=== PATIENT | female | born 1960 | race Caucasian/White ===

== ENCOUNTER 2016-09-16 09:58 | Emergency (ER) | payer SELFPAY ==
[~2016-09-16] VITALS: Ht 175.3 cm; Wt 74.8 kg
[~2016-09-16 09:58] MED LIST: Clindamycin Hcl PO; INSU100I17 SQ; INSU100I27 SQ; SULF1TAB24 PO
[2016-09-16 10:03] VITALS: BP 155/90
--- NOTE | 2016-09-16 10:44 | PHYS DOC ---
Past Medical History Past Medical History: Anxiety, Depression, Diabetes-Type II, MRSA Additional Past Medical Histor: MRSA Past Surgical History: Other Additional Past Surgical Histo: R LEG I&D,L FOOT SURG Alcohol Use: None Drug Use: None Adult General Chief Complaint Chief Complaint: SHOULDER INJURY HPI HPI Patient is a 56 year old female presents to the emergency department via private vehicle stating that she fell at [place] just today she states that she had about 2 gallons of milk and they placed the same bed when she was walking out of a store back broke in the bag broke causing the container to fall and break open. Patient states that she slipped and fell on the right side of her body. She is complaining of right shoulder right hip and right knee pain and discomfort. Patient states that this occurred yesterday. She has not taken anything for pain and discomfort. She does have abrasions noted on her right knee area. Patient does have full range of motion of the extremities no bruising or discoloration noted, peripheral pulses 2+ cap refill brisk less than 2 seconds.Patient states she has a history of neuropathy from diabetes. Review of Systems Review of Systems Constitutional: Denies fever or chills [] Eyes: Denies change in visual acuity, redness, or eye pain [] HENT: Denies nasal congestion or sore throat [] Respiratory: Denies cough or shortness of breath [] Cardiovascular: No additional information not addressed in HPI [] GI: Denies abdominal pain, nausea, vomiting, bloody stools or diarrhea [] : Denies dysuria or hematuria [] Musculoskeletal: Denies back pain. C/o right shoulder, right hip and right knee pain Integument: Denies rash or skin lesions. Abrasion right knee Neurologic: Denies headache, focal weakness or sensory changes [] Endocrine: Denies polyuria or polydipsia [] Current Medications Current Medications Current Medications Medications (Trade) Dose Ordered Sig/[place] Start Time Stop Time Status Last Admin Dose Admin Diphtheria/ Tetanus/Acell Pertussis (Boostrix) 0.5 ml ONCE ONCE 09/16/16 11:00 09/16/16 11:01 DC Allergies Allergies Allergies Coded Allergies Type Severity Reaction Last Updated Verified raspberry Allergy Severe CHOKING SENSATION IN THROAT 10/25/15 Yes amoxicillin Allergy Unknown 11/23/14 Yes aspirin Allergy Unknown 7/31/15 Yes codeine Allergy Unknown 11/23/14 Yes ibuprofen Allergy Unknown 11/23/14 Yes morphine Allergy Unknown 11/23/14 Yes Physical Exam Physical Exam Constitutional: Well developed, well nourished, no acute distress, non-toxic appearance. [] HENT: Normocephalic, atraumatic, bilateral external ears normal, oropharynx moist, no oral exudates, nose normal. [] Eyes: PERRLA, EOMI, conjunctiva normal, no discharge. [] Neck: Normal range of motion, no tenderness, supple, no stridor. [] Cardiovascular:Heart rate regular rhythm, no murmur [] Lungs & Thorax: Bilateral breath sounds clear to auscultation [] Skin: Warm, dry, no erythema, no rash. [] Back: No tenderness Extremities: Right shoulder tenderness, Right hip tenderness and right knee tenderness over the knee cap, peripheral pulses 2+ cap refill brisk < 2 seconds , no cyanosis, no clubbing, ROM intact, no edema. [] Neurologic: Alert and oriented X 3, normal motor function, normal sensory function, no focal deficits noted. [] Psychologic: Affect normal, judgement normal, mood normal. [] Current Patient Data Vital Signs Vital Signs Date Time Temp Pulse Resp B/P (MAP) Pulse Ox O2 Delivery O2 Flow Rate FiO2 09/16/16 10:03 97.9 91 16 98 Room Air 97.9 EKG EKG [] Radiology/Procedures Radiology/Procedures [][facility] [address] [place], [place] [id number] IMAGING REPORT Signed PATIENT: TAYLOR SARAVIA ACCOUNT: [id number] : 1960 LOCATION: ER AGE: 56 SEX: F EXAM [id number] STATUS: REG ER ORD. PHYSICIAN: REENA ZEPEDA APRN REASON: slipped and fell on the right side of body PROCEDURE: KNEE RIGHT 3V; SHOULDER 2+V RIGHT Right shoulder, 3 views, 09/16/2016: History: Slip, fall, injury No fracture or dislocation is identified. There is mild degenerative change at the AC joint. IMPRESSION: No acute right shoulder abnormality is detected. Right knee, 3 views, 09/16/2016: History: Fall, injury No fracture or dislocation is identified. There is mild degenerative change. There is spurring along the tibial tuberosity. No significant joint effusion is seen. IMPRESSION: No acute bony abnormality is detected. DICTATED and SIGNED BY: KENDALL FERREIRA MD DATE: 09/16/16 105 CC: REENA ZEPEDA APRN; NO PCP ~ [facility] [address] [place] [address] IMAGING REPORT Signed PATIENT: TAYLOR SARAVIA ACCOUNT: [id number] : 1960 LOCATION: ER AGE: 56 SEX: F EXAM STATUS: REG ER ORD. PHYSICIAN: REENA ZEPEDA APRN REASON: slipped and fell on the right side of body PROCEDURE: HIP RIGHT 2V WITH PELVIS Pelvis with right hip, 3 views, 09/16/2016: History: Fall, pain No fracture or dislocation is identified. The hip joint spaces are well-maintained with only mild marginal spurring. IMPRESSION: No acute bony abnormality is detected. DICTATED and SIGNED BY: KENDALL FERREIRA MD DATE: 09/16/16 105 CC: REENA ZEPEDA APRN; NO PCP ~ Course & Med Decision Making Course & Med Decision Making Pertinent Labs and Imaging studies reviewed. (See chart for details) She was of the right shoulder, right hip and right knee are negative for any bony abnormalities per radiology. Patient will be recommended to use ice packs on 20 minutes off 20 minutes several times a day. Also recommended that she use Tylenol for pain and discomfort. She'll be provided with Flexeril to help with muscle spasms in the back. She was instructed that this medication will cause drowsiness do not take any be alert and oriented. Patient will be encouraged to use elevation as much as possible. The abrasions that she has she'll be encouraged to use soap and water cleaning the areas and apply antibiotic ointment. Patient will be discharged home in stable condition signs symptoms to return back to emergency department been provided. [] Dragon Disclaimer Dragon Disclaimer This electronic medical record was generated, in whole or in part, using a voice recognition dictation system. Departure Departure Impression: Primary Impression: Fall Additional Impressions: Right shoulder injury Right hip pain Right knee pain Disposition: 01 HOME, SELF-CARE Condition: STABLE Referrals: NO PCP (PCP) Patient Instructions: Fall Prevention and Home Safety, Hip Pain, Knee Pain, [id number], Shoulder Pain, [id number] Additional Instructions: Activity as tolerated. Medications as prescribed. Tylenol for pain and discomfort. Flexeril for pain and discomfort this medication will cause drowsiness do not take any be alert and oriented. Ice packs on 20 minutes off 20 minutes several times a day. Elevation as much as possible. Keep the abrasions been any clean and dry. You may apply antibiotic ointment to the areas twice a day as well. Signs and symptoms of infection: Redness, warmth, tenderness or any yellow/ greenish drainage of a come from the site physician occur follow-up through primary care physician immediately. Follow-up with primary care physician in the next 7-10 days if he continued have pain and discomfort. Return to emergency department sign symptoms of become worse. Scripts Cyclobenzaprine Hcl (CYCLOBENZAPRINE HCL) 5 Mg Tablet 1 TAB PO BID Y for MUSCLE SPASMS, #15 TAB Prov: REENA ZEPEDA APRN 09/16/16 Problem Qualifiers REENA ZEPEDA APRN September 16, 2016 10:44
[2016-09-16] MEDS ORDERED: DIPHTH,PERTUSS(ACELL),TET TOX 0.5 ML DISP.SYRIN. VAX IM ONE (11:00)
--- NOTE | 2016-09-16 11:00 | RAD ---
Right shoulder, 3 views, 09/16/2016: History: Slip, fall, injury No fracture or dislocation is identified. There is mild degenerative change at the AC joint. IMPRESSION: No acute right shoulder abnormality is detected. Right knee, 3 views, 09/16/2016: History: Fall, injury No fracture or dislocation is identified. There is mild degenerative change. There is spurring along the tibial tuberosity. No significant joint effusion is seen. IMPRESSION: No acute bony abnormality is detected.
--- NOTE | 2016-09-16 11:01 | RAD ---
Pelvis with right hip, 3 views, 09/16/2016: History: Fall, pain No fracture or dislocation is identified. The hip joint spaces are well-maintained with only mild marginal spurring. IMPRESSION: No acute bony abnormality is detected.
[2016-09-16] MEDS ORDERED: CYCL5TAB PO (11:24)
== END 2016-09-16 11:43 | disposition home or self-care (01) ==
LOC: ER 09:58
DX: S49.91XA Unspecified injury of right shoulder and upper arm, initial encounter (principal); M25.551 Pain in right hip; M25.561 Pain in right knee; E11.40 Type 2 diabetes mellitus with diabetic neuropathy, unspecified; F41.9 Anxiety disorder, unspecified; Z88.0 Allergy status to penicillin; Z88.5 Allergy status to narcotic agent; Z88.6 Allergy status to analgesic agent; Z88.8 Allergy status to other drugs, medicaments and biological substances; W01.0XXA Fall on same level from slipping, tripping and stumbling without subsequent striking against object, initial encounter; Y93.89 Activity, other specified; Y92.89 Other specified places as the place of occurrence of the external cause; Y99.8 Other external cause status
CPT/HCPCS: 73030; 73502; 73562; 90471; 90715; 99284-25

== ENCOUNTER 2017-05-21 03:02 | Emergency (ER) | payer SELFPAY ==
[2017-05-21] MEDS ORDERED: HYDROcodone/APAP 5/325MG 1 TAB TABLET (04:31)
[2017-05-21] MEDS: HYDROcodone/APAP 10/325 1 TAB TABLET PO (04:34)
== END 2017-05-21 04:40 | disposition home or self-care (01) ==
LOC: ER 03:02
DX: M54.5 Low back pain (principal); M53.3 Sacrococcygeal disorders, not elsewhere classified; F41.9 Anxiety disorder, unspecified; F32.9 Major depressive disorder, single episode, unspecified; E78.00 Pure hypercholesterolemia, unspecified; E11.9 Type 2 diabetes mellitus without complications; Z88.6 Allergy status to analgesic agent; Z88.1 Allergy status to other antibiotic agents; Z88.5 Allergy status to narcotic agent; Z91.018 Allergy to other foods; W00.0XXA Fall on same level due to ice and snow, initial encounter; Y93.89 Activity, other specified; Y92.89 Other specified places as the place of occurrence of the external cause; Y99.8 Other external cause status
CPT/HCPCS: 72220; 99284

== ENCOUNTER 2017-10-13 15:24 | Emergency (ER) | payer SELFPAY ==
[2017-10-13 16:14] LABS: BILIRUBIN,URINE NEGATIVE (NEG); CLARITY,URINE CLOUDY; COLOR,URINE YELLOW; GLUCOSE,URINE >=1000 mg/dL (NEG); NITRITE,URINE POSITIVE (NEG); PH,URINE 5.5; PROTEIN,URINE NEGATIVE (NEG-TRACE); UROBILINOGEN,URINE 0.2 mg/dL (0.2 mg/dL)
[2017-10-13 16:33] LABS: BACTERIA,URINE MANY /HPF (0-FEW); SQUAMOUS EPITHELIAL CELL,UR FEW /LPF; WBC,URINE >40 /HPF (0-4)
[2017-10-13 16:37] LABS: ADD MAN DIFF? NO
[2017-10-13 16:40] LABS: BASO % 0 % (0-3); EOS # 0.3 x10^3/uL (0.0-0.7); EOS % 3 % (0-3); HEMATOCRIT 39.1 % (36.0-47.0); HEMOGLOBIN 13.2 g/dL (12.0-15.5); LYMPH % 26 % (24-48); MEAN CORPUSCULAR HEMOGLOBIN 28 pg (25-35); MEAN CORPUSCULAR HGB CONC 34 g/dL (31-37); MEAN CORPUSCULAR VOLUME 83 fL (79-100); MONO # 0.4 x10^3/uL (0.0-1.1); MONO % 6 % (0-9); NEUT # 5.1 x10^3uL (1.8-7.7); NEUT % 65 % (31-73); PLATELET COUNT 250 x10^3/uL (140-400); RED BLOOD COUNT 4.72 x10^6/uL (3.50-5.40); RED CELL DISTRIBUTION WIDTH 12.8 % (11.5-14.5); WHITE BLOOD COUNT 7.8 x10^3/uL (4.0-11.0)
[2017-10-13 16:46] LABS: BLOOD UREA NITROGEN 27 mg/dL (7-20); BUN/CREATININE RATIO 30 (6-20); CALCIUM 9.4 mg/dL (8.5-10.1); CREATININE 0.9 mg/dL (0.6-1.0); GLUCOSE 477 mg/dL (70-99); SODIUM 132 mmol/L (136-145)
[2017-10-13 16:47] LABS: ANION GAP 5 (6-14); CARBON DIOXIDE 31 mmol/L (21-32); CHLORIDE 96 mmol/L (98-107); POTASSIUM 4.6 mmol/L (3.5-5.1)
[2017-10-13 16:52] LABS: ALBUMIN 3.3 g/dL (3.4-5.0); ALBUMIN/GLOBULIN RATIO 0.8 (1.0-1.7); ALK PHOS 133 U/L (46-116); ALT (SGPT) 32 U/L (14-59); AST (SGOT) 19 U/L (15-37); TOTAL BILIRUBIN 0.3 mg/dL (0.2-1.0); TOTAL PROTEIN 7.2 g/dL (6.4-8.2)
[2017-10-13] MEDS: IV NORMAL SALINE 1000ML BAG 1,000 ML IV ×2 (16:56→17:52)
[2017-10-13] MEDS: ONDANSETRON PF 4 MG/2 ML VIAL. IV (16:56)
[2017-10-13] MEDS: MECLIZINE HCL 12.5 MG TABLET. PO (16:58)
[2017-10-13] MEDS: KETOROLAC 30 MG/ML INJ. IV (16:59)
[2017-10-13] MEDS: INSULIN REGULAR 100 UNIT/ML 3ML VIAL. IV (17:52)
[2017-10-13 20:50] LABS: POC GLUCOSE 232 mg/dL (70-99)
== END 2017-10-13 20:00 | disposition home or self-care (01) ==
LOC: ER 15:24
DX: E11.65 Type 2 diabetes mellitus with hyperglycemia (principal); E86.0 Dehydration; N39.0 Urinary tract infection, site not specified; E78.00 Pure hypercholesterolemia, unspecified; Z86.14 Personal history of Methicillin resistant Staphylococcus aureus infection; Z88.1 Allergy status to other antibiotic agents; Z88.5 Allergy status to narcotic agent; Z88.6 Allergy status to analgesic agent; Z91.018 Allergy to other foods
CPT/HCPCS: 36415; 80053; 81001; 82962; 85025; 96361; 96374; 96375; 99285-25; J1815; J2405; J7030; J8597

== ENCOUNTER 2017-11-04 08:58 | Inpatient (IN) | payer SELFPAY ==
[2017-11-04 09:17] LABS: POC GLUCOSE 89 mg/dL (70-99)
[2017-11-04 09:27] LABS: ADD MAN DIFF? NO
[2017-11-04 09:36] LABS: BASO % 1 % (0-3); EOS # 0.2 x10^3/uL (0.0-0.7); EOS % 4 % (0-3); HEMATOCRIT 38.8 % (36.0-47.0); LYMPH # 2.8 x10^3/uL (1.0-4.8); LYMPH % 45 % (24-48); MEAN CORPUSCULAR HEMOGLOBIN 28 pg (25-35); MEAN CORPUSCULAR HGB CONC 33 g/dL (31-37); MEAN CORPUSCULAR VOLUME 83 fL (79-100); MONO # 0.5 x10^3/uL (0.0-1.1); MONO % 8 % (0-9); NEUT # 2.6 x10^3uL (1.8-7.7); NEUT % 42 % (31-73); PLATELET COUNT 261 x10^3/uL (140-400); RED BLOOD COUNT 4.68 x10^6/uL (3.50-5.40); RED CELL DISTRIBUTION WIDTH 13.2 % (11.5-14.5); WHITE BLOOD COUNT 6.2 x10^3/uL (4.0-11.0)
[2017-11-04 09:42] LABS: ANION GAP 6 (6-14); BLOOD UREA NITROGEN 36 mg/dL (7-20); BUN/CREATININE RATIO 40 (6-20); CALCIUM 9.5 mg/dL (8.5-10.1); CARBON DIOXIDE 32 mmol/L (21-32); CHLORIDE 103 mmol/L (98-107); CREATININE 0.9 mg/dL (0.6-1.0); GLUCOSE 84 mg/dL (70-99); POTASSIUM 3.6 mmol/L (3.5-5.1); SODIUM 141 mmol/L (136-145)
[2017-11-04 09:48] LABS: ALBUMIN 3.4 g/dL (3.4-5.0); ALBUMIN/GLOBULIN RATIO 0.9 (1.0-1.7); ALK PHOS 98 U/L (46-116); ALT (SGPT) 23 U/L (14-59); AST (SGOT) 17 U/L (15-37); MAGNESIUM 1.7 mg/dL (1.8-2.4); TOTAL BILIRUBIN 0.2 mg/dL (0.2-1.0); TOTAL PROTEIN 7.3 g/dL (6.4-8.2)
[2017-11-04 09:50] LABS: BILIRUBIN,URINE NEGATIVE (NEG); CLARITY,URINE CLEAR; COLOR,URINE YELLOW; GLUCOSE,URINE >=1000 mg/dL (NEG); NITRITE,URINE NEGATIVE (NEG); PH,URINE 5.5; PROTEIN,URINE NEGATIVE (NEG-TRACE); UROBILINOGEN,URINE 0.2 mg/dL (0.2 mg/dL)
[2017-11-04 09:55] LABS: THYROID STIM HORMONE (TSH) 0.374 uIU/mL (0.358-3.74)
[2017-11-04 09:59] LABS: TROPONINI < 0.017 ng/mL (0.000-0.055)
[2017-11-04 10:03] LABS: BACTERIA,URINE 0 /HPF (0-FEW); HYALINE CASTS, URINE MODERATE /HPF; RBC,URINE 0 /HPF (0-2); SQUAMOUS EPITHELIAL CELL,UR MANY /LPF; WBC,URINE 0 /HPF (0-4)
[2017-11-04] MEDS: IV NORMAL SALINE 1000ML BAG 1,000 ML IV (10:35)
[2017-11-04] MEDS: MECLIZINE HCL 12.5 MG TABLET. PO (10:37)
[2017-11-04] MEDS ORDERED: ACETAMINOPHEN 500 MG TABLET PO (13:45)
[2017-11-04] MEDS ORDERED: CLINDAMYCIN HCL 600 MG PO (14:00)
[2017-11-04] MEDS ORDERED: DEXTROSE 50% 25 GM / 50ML DISP.SYRIN. IV (14:30)
[2017-11-04] MEDS ORDERED: ACETAMINOPHEN 325 MG TABLET. PO (15:00)
[2017-11-04] MEDS: ACETAMINOPHEN 325 MG TABLET. PO (16:18)
[2017-11-04 16:56] LABS: POC GLUCOSE 281 mg/dL (70-99)
[2017-11-04] MEDS: INSULIN LISPRO 300 UNITS/3 ML INSULN.PEN. SQ (17:00)
[2017-11-04] MEDS: ATORVASTATIN CALCIUM 10 MG TABLET. PO (20:44)
[2017-11-04] MEDS: AMITRIPTYLINE HCL 50 MG TABLET PO (20:44)
[2017-11-04] MEDS: KETOROLAC 30 MG/ML INJ. IV (20:44)
[2017-11-04] MEDS: INSULIN GLARGINE 300 UNITS/3 ML INSULN.PEN. SQ (20:50)
[2017-11-04 20:52] LABS: POC GLUCOSE 263 mg/dL (70-99)
[2017-11-04 22:59] LABS: POC GLUCOSE 258 mg/dL (70-99)
[2017-11-05 07:33] LABS: POC GLUCOSE 251 mg/dL (70-99)
[2017-11-05] MEDS: INSULIN LISPRO 300 UNITS/3 ML INSULN.PEN. SQ ×5 (08:39→17:07)
[2017-11-05] MEDS ORDERED: DEXTROSE 50% 25 GM / 50ML DISP.SYRIN. IV (10:30)
[2017-11-05] MEDS: FLUDROCORTISONE 0.1 MG TABLET PO (10:49)
[2017-11-05 11:25] LABS: POC GLUCOSE 104 mg/dL (70-99)
[2017-11-05] MEDS: IV NORMAL SALINE 1000ML BAG 1,000 ML IV (11:28)
[2017-11-05 13:57] LABS: ALBUMIN 2.7 g/dL (3.4-5.0); ALBUMIN/GLOBULIN RATIO 0.8 (1.0-1.7); ALK PHOS 86 U/L (46-116); ALT (SGPT) 19 U/L (14-59); ANION GAP 4 (6-14); AST (SGOT) 15 U/L (15-37); BLOOD UREA NITROGEN 35 mg/dL (7-20); BUN/CREATININE RATIO 44 (6-20); CALCIUM 8.4 mg/dL (8.5-10.1); CARBON DIOXIDE 31 mmol/L (21-32); CHLORIDE 104 mmol/L (98-107); CREATININE 0.8 mg/dL (0.6-1.0); GFR 74.5; GLUCOSE 145 mg/dL (70-99); POTASSIUM 4.3 mmol/L (3.5-5.1); SODIUM 139 mmol/L (136-145); TOTAL BILIRUBIN 0.2 mg/dL (0.2-1.0)
[2017-11-05 14:09] LABS: FREE T4 1.06 ng/dL (0.76-1.46)
[2017-11-05 16:54] LABS: POC GLUCOSE 170 mg/dL (70-99)
[2017-11-05] MEDS: AMITRIPTYLINE HCL 50 MG TABLET PO (20:17)
[2017-11-05] MEDS: ATORVASTATIN CALCIUM 10 MG TABLET. PO (20:17)
[2017-11-05 21:18] LABS: POC GLUCOSE 99 mg/dL (70-99)
[2017-11-05 22:04] LABS: POC GLUCOSE 156 mg/dL (70-99)
[2017-11-05] MEDS: INSULIN GLARGINE 300 UNITS/3 ML INSULN.PEN. SQ (22:07)
[2017-11-06 01:16] LABS: HEMOGLOBIN A1C 14.2 % (4.8-5.6)
[2017-11-06 02:20] LABS: T3 TOTAL 99 ng/dL (71-180)
[2017-11-06] MEDS: ONDANSETRON PF 4 MG/2 ML VIAL. IV ×2 (05:00→08:15)
[2017-11-06] MEDS: IV NORMAL SALINE 1000ML BAG 1,000 ML IV (05:01)
[2017-11-06 05:13] LABS: POC GLUCOSE 143 mg/dL (70-99)
[2017-11-06 05:24] LABS: SEDIMENTATION RATE 24 (0-25)
[2017-11-06] MEDS: INSULIN LISPRO 300 UNITS/3 ML INSULN.PEN. SQ ×6 (08:00→16:40)
[2017-11-06 08:12] LABS: POC GLUCOSE 180 mg/dL (70-99)
[2017-11-06] MEDS: FLUDROCORTISONE 0.1 MG TABLET PO (09:00)
[2017-11-06] MEDS: PROCHLORPERAZINE 10 MG/2 ML VIAL. IV (09:23)
[2017-11-06 11:52] LABS: POC GLUCOSE 82 mg/dL (70-99)
[2017-11-06 16:38] LABS: POC GLUCOSE 91 mg/dL (70-99)
[2017-11-06] MEDS: INSULIN GLARGINE 300 UNITS/3 ML INSULN.PEN. SQ (21:00)
[2017-11-06 21:03] LABS: POC GLUCOSE 97 mg/dL (70-99)
[2017-11-06] MEDS: ACETAMINOPHEN 325 MG TABLET. PO (21:03)
[2017-11-06] MEDS: ATORVASTATIN CALCIUM 10 MG TABLET. PO (21:03)
[2017-11-06] MEDS: AMITRIPTYLINE HCL 50 MG TABLET PO (21:03)
[2017-11-06] MEDS ORDERED: IV NORMAL SALINE 1000ML BAG 1,000 ML IV (23:45)
[2017-11-07] MEDS: IV NORMAL SALINE 1000ML BAG 1,000 ML IV ×5 (00:14→17:00)
[2017-11-07] MEDS ORDERED: IV NORMAL SALINE 1000ML BAG 1,000 ML IV ×2 (01:00→23:45)
[2017-11-07 04:38] LABS: ADD MAN DIFF? NO
[2017-11-07 04:52] LABS: BASO % 0 % (0-3); EOS % 0 % (0-3); HEMATOCRIT 34.4 % (36.0-47.0); HEMOGLOBIN 11.5 g/dL (12.0-15.5); LYMPH # 0.9 x10^3/uL (1.0-4.8); LYMPH % 19 % (24-48); MEAN CORPUSCULAR HEMOGLOBIN 28 pg (25-35); MEAN CORPUSCULAR HGB CONC 34 g/dL (31-37); MEAN CORPUSCULAR VOLUME 84 fL (79-100); MONO # 0.3 x10^3/uL (0.0-1.1); MONO % 6 % (0-9); NEUT # 3.6 x10^3uL (1.8-7.7); NEUT % 74 % (31-73); PLATELET COUNT 181 x10^3/uL (140-400); RED BLOOD COUNT 4.08 x10^6/uL (3.50-5.40); RED CELL DISTRIBUTION WIDTH 12.9 % (11.5-14.5); WHITE BLOOD COUNT 4.9 x10^3/uL (4.0-11.0)
[2017-11-07 05:19] LABS: ALBUMIN 2.3 g/dL (3.4-5.0); ALBUMIN/GLOBULIN RATIO 0.7 (1.0-1.7); ALK PHOS 50 U/L (46-116); ALT (SGPT) 15 U/L (14-59); ANION GAP 7 (6-14); AST (SGOT) 16 U/L (15-37); BLOOD UREA NITROGEN 41 mg/dL (7-20); BUN/CREATININE RATIO 41 (6-20); CALCIUM 7.6 mg/dL (8.5-10.1); CARBON DIOXIDE 25 mmol/L (21-32); CHLORIDE 107 mmol/L (98-107); GFR 57.6; GLUCOSE 81 mg/dL (70-99); SODIUM 139 mmol/L (136-145); TOTAL BILIRUBIN 0.4 mg/dL (0.2-1.0); TOTAL PROTEIN 5.5 g/dL (6.4-8.2)
[2017-11-07] MEDS: INSULIN LISPRO 300 UNITS/3 ML INSULN.PEN. SQ ×6 (07:48→17:00)
[2017-11-07] MEDS: FLUDROCORTISONE 0.1 MG TABLET PO (07:57)
[2017-11-07 08:04] LABS: POC GLUCOSE 102 mg/dL (70-99)
[2017-11-07 11:08] LABS: POC GLUCOSE 169 mg/dL (70-99)
[2017-11-07 16:55] LABS: POC GLUCOSE 88 mg/dL (70-99)
[2017-11-07 20:55] LABS: POC GLUCOSE 132 mg/dL (70-99)
[2017-11-07] MEDS: ACETAMINOPHEN 325 MG TABLET. PO (20:55)
[2017-11-07] MEDS: AMITRIPTYLINE HCL 50 MG TABLET PO (20:55)
[2017-11-07] MEDS: ATORVASTATIN CALCIUM 10 MG TABLET. PO (20:55)
[2017-11-07] MEDS: INSULIN GLARGINE 300 UNITS/3 ML INSULN.PEN. SQ (21:11)
[2017-11-07] MEDS: ONDANSETRON PF 4 MG/2 ML VIAL. IV (22:35)
[2017-11-08] MEDS: IV NORMAL SALINE 1000ML BAG 1,000 ML IV ×3 (01:03→17:00)
[2017-11-08 06:52] LABS: ADD MAN DIFF? NO
[2017-11-08] MEDS ORDERED: PROCHLORPERAZINE 10 MG/2 ML VIAL. IV (07:00)
[2017-11-08] MEDS: IV RINGERS,LACTATED 1000ML 1,000 ML IV (07:00)
[2017-11-08] MEDS ORDERED: LIDOCAINE 1% PF 2 ML VIAL. ID (07:00)
[2017-11-08] MEDS ORDERED: fentaNYL PF VIAL 100 MCG/2 ML VIAL IV ×2 (07:00)
[2017-11-08 07:23] LABS: ALBUMIN 2.3 g/dL (3.4-5.0); ALBUMIN/GLOBULIN RATIO 0.7 (1.0-1.7); ALK PHOS 77 U/L (46-116); ALT (SGPT) 17 U/L (14-59); ANION GAP 6 (6-14); AST (SGOT) 16 U/L (15-37); BLOOD UREA NITROGEN 18 mg/dL (7-20); BUN/CREATININE RATIO 26 (6-20); CALCIUM 7.7 mg/dL (8.5-10.1); CARBON DIOXIDE 26 mmol/L (21-32); CHLORIDE 109 mmol/L (98-107); CREATININE 0.7 mg/dL (0.6-1.0); GFR 86.9; GLUCOSE 203 mg/dL (70-99); POTASSIUM 3.7 mmol/L (3.5-5.1); SODIUM 141 mmol/L (136-145); TOTAL BILIRUBIN 0.2 mg/dL (0.2-1.0); TOTAL PROTEIN 5.5 g/dL (6.4-8.2)
[2017-11-08 07:30] LABS: BASO % 0 % (0-3); EOS # 0.2 x10^3/uL (0.0-0.7); EOS % 5 % (0-3); HEMATOCRIT 31.2 % (36.0-47.0); HEMOGLOBIN 10.6 g/dL (12.0-15.5); LYMPH # 1.6 x10^3/uL (1.0-4.8); LYMPH % 35 % (24-48); MEAN CORPUSCULAR HEMOGLOBIN 28 pg (25-35); MEAN CORPUSCULAR HGB CONC 34 g/dL (31-37); MEAN CORPUSCULAR VOLUME 83 fL (79-100); MONO # 0.4 x10^3/uL (0.0-1.1); MONO % 10 % (0-9); NEUT # 2.3 x10^3uL (1.8-7.7); NEUT % 51 % (31-73); PLATELET COUNT 153 x10^3/uL (140-400); RED BLOOD COUNT 3.75 x10^6/uL (3.50-5.40); RED CELL DISTRIBUTION WIDTH 12.9 % (11.5-14.5); WHITE BLOOD COUNT 4.5 x10^3/uL (4.0-11.0)
[2017-11-08 07:49] LABS: POC GLUCOSE 186 mg/dL (70-99)
[2017-11-08] MEDS: INSULIN LISPRO 300 UNITS/3 ML INSULN.PEN. SQ ×6 (08:00→17:00)
[2017-11-08] MEDS: FLUDROCORTISONE 0.1 MG TABLET PO (08:24)
[2017-11-08 09:10] LABS: FOLATE 9.31 ng/ml (3.2-20.0)
[2017-11-08 09:10] LABS: VITAMIN-B12 384 pg/mL (247-911)
[2017-11-08 11:41] LABS: POC GLUCOSE 188 mg/dL (70-99)
[2017-11-08] MEDS ORDERED: PROPOFOL 100 ML IV (12:34)
[2017-11-08] MEDS ORDERED: MIDAZOLAM HCL/PF 2 MG/2 ML VIAL. (13:32)
[2017-11-08] MEDS ORDERED: KETAMINE HCL 500 MG/10 ML VIAL. (13:32)
[2017-11-08] MEDS ORDERED: PROPOFOL 20 ML IV (13:32)
[2017-11-08 13:55] LABS: C DIFF BY PCR Negative (Negative)
[2017-11-08 15:01] LABS: POC GLUCOSE 153 mg/dL (70-99)
[2017-11-08 16:41] LABS: POC GLUCOSE 143 mg/dL (70-99)
[2017-11-08] MEDS: ACETAMINOPHEN 325 MG TABLET. PO (17:59)
[2017-11-09 19:21] LABS: ANA INTERP Negative (.)
== END 2017-11-08 19:15 | disposition home or self-care (01) | DRG 641 ==
LOC: ER 08:58 → 5 NORTH 11:20
PROVIDERS: Internal Medicine
DX: E86.0 Dehydration (principal); I95.1 Orthostatic hypotension; E11.40 Type 2 diabetes mellitus with diabetic neuropathy, unspecified; E78.00 Pure hypercholesterolemia, unspecified; E78.5 Hyperlipidemia, unspecified; F41.9 Anxiety disorder, unspecified; I10 Essential (primary) hypertension; I49.3 Ventricular premature depolarization; J44.9 Chronic obstructive pulmonary disease, unspecified; Z87.440 Personal history of urinary (tract) infections; Z72.0 Tobacco use; Z79.4 Long term (current) use of insulin; Z83.3 Family history of diabetes mellitus; Z86.73 Personal history of transient ischemic attack (TIA), and cerebral infarction without residual deficits; F32.9 Major depressive disorder, single episode, unspecified; M19.90 Unspecified osteoarthritis, unspecified site; Z86.14 Personal history of Methicillin resistant Staphylococcus aureus infection; E11.65 Type 2 diabetes mellitus with hyperglycemia; Z88.1 Allergy status to other antibiotic agents; Z88.5 Allergy status to narcotic agent; Z88.8 Allergy status to other drugs, medicaments and biological substances; E11.649 Type 2 diabetes mellitus with hypoglycemia without coma; R42 Dizziness and giddiness
CPT/HCPCS: 36415; 51701; 70551; 71045; 80053; 81001; 82607; 82746; 82962; 83036; 83735; 84439; 84443; 84480; 84481; 84484; 85025; 85651; 86038; 87324; 93005; 93306; 97161-GP; 99285; 99285-25; J0780; J1815; J1885; J2060; J2250; J2405; J2704; J3490; J7030; J8597

== ENCOUNTER 2017-12-03 16:11 | Inpatient (IN) | payer SELFPAY ==
[~2017-12-03] VITALS: Ht 165.1 cm; Wt 68.1 kg
[~2017-12-03 16:11] MED LIST changes: +ACET500T68 PO; +AMIT50TA PO; +CYCL5TAB PO; +FLUD0.1T PO; +LOVA20TA2 PO
[2017-12-03] MEDS ORDERED: IV NORMAL SALINE 1000ML BAG 1,000 ML IV SCH (16:43)
--- NOTE | 2017-12-03 17:07 | EKG ---
[facility] [address] [place] [address] Test Date: 2017-12-03 Test Time: 16:39:50 Pat Name: TAYLOR SARAVIA Department: Room: Gender: F [employer]: : 1960 Requested By: PAXTON RATLIFF Order Number: [id number] Reading MD: Measurements Intervals [place] Rate: 102 P: -41 MN: 146 QRS: -30 QRSD: 82 T: 53 QT: 346 QTc: 455 Interpretive Statements SINUS TACHYCARDIA VENTRICULAR PREMATURE COMPLEX(ES) ABNORMAL LEFT AXIS DEVIATION LOW LIMB LEAD VOLTAGE QRS(T) CONTOUR ABNORMALITY CONSISTENT WITH ANTEROSEPTAL INFARCT AGE UNDETERMINED ABNORMAL ECG RI6.01 No previous ECG available for comparison
[2017-12-03 17:22] LABS: BASO % 0 % (0-3); EOS # 0.1 x10^3/uL (0.0-0.7); EOS % 2 % (0-3); HEMOGLOBIN 12.7 g/dL (12.0-15.5); LYMPH # 1.6 x10^3/uL (1.0-4.8); LYMPH % 23 % (24-48); MEAN CORPUSCULAR HEMOGLOBIN 28 pg (25-35); MEAN CORPUSCULAR HGB CONC 33 g/dL (31-37); MEAN CORPUSCULAR VOLUME 83 fL (79-100); MONO # 0.4 x10^3/uL (0.0-1.1); MONO % 6 % (0-9); NEUT # 4.9 x10^3uL (1.8-7.7); NEUT % 69 % (31-73); PLATELET COUNT 271 x10^3/uL (140-400); RED BLOOD COUNT 4.58 x10^6/uL (3.50-5.40); WHITE BLOOD COUNT 7.1 x10^3/uL (4.0-11.0)
[2017-12-03 17:28] LABS: PROTHROMBIN TIME PATIENT 13.2 SEC (11.7-14.0)
[2017-12-03 17:33] LABS: CALCIUM 9.6 mg/dL (8.5-10.1); GFR 57.6; POTASSIUM 4.5 mmol/L (3.5-5.1)
[2017-12-03 17:39] LABS: ALBUMIN 3.2 g/dL (3.4-5.0); ALBUMIN/GLOBULIN RATIO 0.8 (1.0-1.7); MAGNESIUM 1.8 mg/dL (1.8-2.4); TOTAL BILIRUBIN 0.3 mg/dL (0.2-1.0); TOTAL PROTEIN 7.1 g/dL (6.4-8.2)
--- NOTE | 2017-12-03 17:39 | RAD ---
CT scan of the head without contrast 12/03/2017 Clinical History: Dizziness. Technique: Unenhanced, contiguous, 5 mm axial sections were obtained through the head. One or more of the following individualized dose reduction techniques were utilized for this study: 1. Automated exposure control. 2. Adjustment of the mA and/or kV according to patient size. 3. Use of iterative reconstruction technique. Findings: Comparison is made to patient's MRI of the brain dated 11/08/2017. There is generalized parenchymal atrophy. Areas of decreased attenuation are seen within the periventricular and subcortical white matter of both cerebral hemispheres consistent with areas of small vessel ischemic disease. No acute parenchymal abnormality is seen. No extra-axial fluid collection is noted. No skull fracture is seen. Impression: No acute intracranial abnormality is seen. Electronically signed by: Wale Tyler MD (12/03/2017 5:36 PM) [facility]
--- NOTE | 2017-12-03 18:05 | PHYS DOC ---
Past Medical History Past Medical History: Anxiety, Depression, Diabetes-Type I, High Cholesterol, MRSA Additional Past Medical Histor: MRSA Past Surgical History: Other Additional Past Surgical Histo: R LEG I&D,L FOOT SURG Alcohol Use: None Drug Use: None Adult General Chief Complaint Chief Complaint: DIZZY/LIGHT HEADED HPI HPI 57-year-old female patient complaining of constant dizziness since she woke up this morning that getting worse with movement of her head and change of position. Patient complaining of headache, nausea, blurred vision, and generalized weakness. Patient denies focal neuro deficit, fever, head injury, vomiting, diarrhea, chest pain and shortness of breath. Patient states she had the same problem 2 weeks ago and was seen in emergency room with diagnosis of dehydration. Review of Systems Review of Systems Constitutional: Denies fever or chills [] Eyes: Denies change in visual acuity, redness, or eye pain [] HENT: Denies nasal congestion or sore throat [] Respiratory: Denies cough or shortness of breath [] Cardiovascular: No additional information not addressed in HPI [] GI: Denies abdominal pain, nausea, vomiting, bloody stools or diarrhea [] : Denies dysuria or hematuria [] Musculoskeletal: Denies back pain or joint pain [] Integument: Denies rash or skin lesions [] Neurologic: Reports dizziness, headache, denies new focal weakness or sensory changes [] Endocrine: Denies polyuria or polydipsia [] All other systems were reviewed and found to be within normal limits, except as documented in this note. Current Medications Current Medications Current Medications Medications (Trade) Dose Ordered Sig/[place] Start Time Stop Time Status Last Admin Dose Admin Insulin Human Regular (HumuLIN R VIAL) 10 unit 1X ONCE 12/03/17 19:30 12/03/17 19:31 DC 12/03/17 19:32 6 UNIT Lorazepam (Ativan) 1 mg 1X ONCE 12/03/17 16:45 12/03/17 16:49 DC 12/03/17 19:30 1 MG Sodium Chloride 1,000 ml @ 1,000 mls/hr Q1H 12/03/17 16:43 12/03/17 17:42 DC 12/03/17 16:43 1,000 MLS/HR Allergies Allergies Allergies Coded Allergies Type Severity Reaction Last Updated Verified raspberry Allergy Severe CHOKING SENSATION IN THROAT 10/25/15 Yes amoxicillin Allergy Intermediate 10/13/17 Yes aspirin Allergy Intermediate 10/13/17 Yes codeine Allergy Intermediate 10/13/17 Yes ibuprofen Allergy Intermediate 10/13/17 Yes morphine Allergy Intermediate 10/13/17 Yes Physical Exam Physical Exam Constitutional: Well developed, well nourished, mild distress, non-toxic appearance. [] HENT: Normocephalic, atraumatic, oropharynx dry, no oral exudates, nose normal. [] Eyes: PERRLA, EOMI, conjunctiva normal, no discharge. [] Neck: Normal range of motion, no tenderness, supple, no stridor. [] Cardiovascular:Heart rate regular rhythm, no murmur [] Lungs & Thorax: Bilateral breath sounds clear to auscultation [] Abdomen: Bowel sounds normal, soft, no tenderness, no masses, no pulsatile masses. [] Skin: Warm, dry, no erythema, no rash. [] Back: No tenderness, no CVA tenderness. [] Extremities: No tenderness, no cyanosis, no clubbing, ROM intact, no edema. [] Neurologic: Alert and oriented X 3, normal motor function, normal sensory function, no focal deficits noted. [] Psychologic: Affect anxious, judgement normal, mood normal. [] Current Patient Data Vital Signs Vital Signs Date Time Temp Pulse Resp B/P (MAP) Pulse Ox O2 Delivery O2 Flow Rate FiO2 12/03/17 19:38 102 17 98 12/03/17 16:25 98.2 159/89 (112) Room Air 98.2 Lab Values Laboratory Tests Test 12/03/17 17:05 12/03/17 19:29 White Blood Count 7.1 x10^3/uL (4.0-11.0) Red Blood Count 4.58 x10^6/uL (3.50-5.40) Hemoglobin 12.7 g/dL (12.0-15.5) Hematocrit 38.0 % (36.0-47.0) Mean Corpuscular Volume 83 fL (79-100) Mean Corpuscular Hemoglobin 28 pg (25-35) Mean Corpuscular Hemoglobin Concent 33 g/dL (31-37) Red Cell Distribution Width 13.0 % (11.5-14.5) Platelet Count 271 x10^3/uL (140-400) Neutrophils (%) (Auto) 69 % (31-73) Lymphocytes (%) (Auto) 23 % (24-48) L Monocytes (%) (Auto) 6 % (0-9) Eosinophils (%) (Auto) 2 % (0-3) Basophils (%) (Auto) 0 % (0-3) Neutrophils # (Auto) 4.9 x10^3uL (1.8-7.7) Lymphocytes # (Auto) 1.6 x10^3/uL (1.0-4.8) Monocytes # (Auto) 0.4 x10^3/uL (0.0-1.1) Eosinophils # (Auto) 0.1 x10^3/uL (0.0-0.7) Basophils # (Auto) 0.0 x10^3/uL (0.0-0.2) Prothrombin Time 13.2 SEC (11.7-14.0) Prothrombin Time INR 1.1 (0.8-1.1) Sodium Level 136 mmol/L (136-145) Potassium Level 4.5 mmol/L (3.5-5.1) Chloride Level 98 mmol/L (98-107) Carbon Dioxide Level 31 mmol/L (21-32) Anion Gap 7 (6-14) Blood Urea Nitrogen 29 mg/dL (7-20) H Creatinine 1.0 mg/dL (0.6-1.0) Estimated GFR (Cockcroft-Gault) 57.6 BUN/Creatinine Ratio 29 (6-20) H Glucose Level 489 mg/dL (70-99) H Calcium Level 9.6 mg/dL (8.5-10.1) Magnesium Level 1.8 mg/dL (1.8-2.4) Total Bilirubin 0.3 mg/dL (0.2-1.0) Aspartate Amino Transferase (AST) 80 U/L (15-37) H Alanine Aminotransferase (ALT) 53 U/L (14-59) Alkaline Phosphatase 130 U/L (46-116) H Creatine Kinase 85 U/L (26-192) Creatine Kinase MB (Mass) 2.2 ng/mL (0.0-3.6) Creatine Kinase MB Relative Index 2.6 % (0-4) Troponin I Quantitative < 0.017 ng/mL (0.000-0.055) IA-Bfw-D-Type Natriuretic Peptide 218 pg/mL (0-124) H Total Protein 7.1 g/dL (6.4-8.2) Albumin 3.2 g/dL (3.4-5.0) L Albumin/Globulin Ratio 0.8 (1.0-1.7) L Acetone Level Neg (NEG) Glucose (Fingerstick) 337 mg/dL (70-99) H Laboratory Tests 12/03/17 17:05 Laboratory Tests 12/03/17 17:05 EKG EKG Interpreted by me. EKG at 1639 showed sinus tachycardia b at rate of 102, left axis deviation, low-voltage QRS, no acute ST and T-wave abnormalities[] Radiology/Procedures Radiology/Procedures [] Impressions: CT head demonstrates no acute process. Chest x-ray demonstrates no acute process. Course & Med Decision Making Course & Med Decision Making Pertinent Labs and Imaging studies are pending. Patient care transferred to Dr. Khalil at 1800. Upon completion of workup, findings have been reviewed with patient. I did discuss patient's symptoms earlier today and she indicates that she actually had a complete loss of vision, stating that when she was looking over her all she saw was what appeared to be like a white sheet. She also indicates that she has had episodes where she is seeing spots and curly lines. She states that she had a similar episode a couple of weeks ago for which she was admitted. Patient has received IV fluids here in the department and upon completion of IV fluids, patient continues to have orthostatic hypotension. Dragon Disclaimer Dragon Disclaimer This electronic medical record was generated, in whole or in part, using a voice recognition dictation system. Departure Departure Impression: Primary Impression: Orthostatic hypotension Additional Impressions: Hyperglycemia due to type 1 diabetes mellitus Visual changes Disposition: ADMITTED INPATIENT Admitting Physician: Xie. Ricks Condition: IMPROVED Referrals: NO PCP (PCP) Problem Qualifiers PAXTON RATLIFF MD Dec 03, 2017 18:04 CATHY KHALIL Jr., DO Dec 03, 2017 20:34
[2017-12-03] MEDS ORDERED: INSULIN REGULAR 100 UNIT/ML 3ML VIAL. IV ONE (19:30)
--- NOTE | 2017-12-03 20:10 | RAD ---
AP portable chest radiograph 12/03/2017 Clinical History: Unexplained dizziness. History of syncope. History of cough An AP erect portable digital radiograph of the chest was obtained. Comparison study is dated 11/04/2017. The cardiac silhouette is borderline enlarged. The thoracic aorta is minimally tortuous. No acute pulmonary infiltrate is seen. No pleural effusion or pneumothorax is noted. The osseous structures are unchanged. Impression: No acute abnormality is seen. Electronically signed by: Wale Tyler MD (12/03/2017 8:06 PM) [facility]
[2017-12-03] MEDS ORDERED: ONDANSETRON PF 4 MG/2 ML VIAL. IV PRN (20:45)
[2017-12-03 20:47] LABS: BILIRUBIN,URINE NEGATIVE (NEG); CLARITY,URINE CLOUDY; COLOR,URINE YELLOW; NITRITE,URINE NEGATIVE (NEG); PROTEIN,URINE 30 mg/dL (NEG-TRACE)
[2017-12-03 20:51] LABS: BACTERIA,URINE MANY /HPF (0-FEW); RBC,URINE OCC /HPF (0-2); SQUAMOUS EPITHELIAL CELL,UR MOD /LPF; WBC,URINE 20-40 /HPF (0-4)
[2017-12-03] MEDS: IV NORMAL SALINE 1000ML BAG 1,000 ML IV SCH (22:01)
[2017-12-03 22:10] VITALS: BP 158/99
[2017-12-04] VITALS (8 sets, daily range): BP systolic 94–181; BP diastolic 64–107
[2017-12-04 05:48] LABS: CALCIUM 8.5 mg/dL (8.5-10.1); CREATININE 0.7 mg/dL (0.6-1.0); GFR 86.9; POTASSIUM 3.6 mmol/L (3.5-5.1)
[2017-12-04] MEDS: IV NORMAL SALINE 1000ML BAG 1,000 ML IV SCH ×2 (05:48→12:19)
[2017-12-04 05:59] LABS: BASO % 1 % (0-3); EOS # 0.2 x10^3/uL (0.0-0.7); EOS % 4 % (0-3); HEMATOCRIT 34.9 % (36.0-47.0); LYMPH # 1.8 x10^3/uL (1.0-4.8); LYMPH % 37 % (24-48); MEAN CORPUSCULAR HEMOGLOBIN 28 pg (25-35); MEAN CORPUSCULAR HGB CONC 34 g/dL (31-37); MEAN CORPUSCULAR VOLUME 82 fL (79-100); MONO # 0.4 x10^3/uL (0.0-1.1); MONO % 8 % (0-9); NEUT # 2.5 x10^3uL (1.8-7.7); NEUT % 51 % (31-73); PLATELET COUNT 242 x10^3/uL (140-400); RED BLOOD COUNT 4.24 x10^6/uL (3.50-5.40); RED CELL DISTRIBUTION WIDTH 13.5 % (11.5-14.5); WHITE BLOOD COUNT 4.9 x10^3/uL (4.0-11.0)
--- NOTE | 2017-12-04 08:13 | PDOC1 ---
History and Physical Date of Admission Date of Admission DATE: 12/04/17 TIME: 08:06 Identification/Chief Complaint Chief Complaint syncopal, dizzy Source Source: Chart review, Patient History of Present Illness History of Present Illness Ms. Wright, a 57-year-old female patient complaining of dizziness, occurring suddenly when standing. Her reports that her BP drops markedly. She does not tell me that she has symptoms when moving her head, or while seated she complains that she blacked out and fell, that she gets dizzy and the room spins only when she stands suddenly Past Medical History Cardiovascular: HTN, Hyperlipidemia Pulmonary: COPD CENTRAL NERVOUS SYSTEM: Periperal neuropathy, TIA Psych: Anxiety, Depression Musculoskeletal: Osteoarthritis, Other Infectious disease: Other Renal/: UTI, Urinary Incontinence Endocrine: Diabetes Past Surgical History Past Surgical History: Other Family History Family History: No Significant Social History Smoke: No ALCOHOL: none Drugs: None Current Problem List Problem List Problems Medical Problems: (1) Hyperglycemia due to type 1 diabetes mellitus Status: Acute (2) Orthostatic hypotension Status: Acute (3) Visual changes Status: Acute Current Medications Current Medications Current Medications Sodium Chloride 1,000 ml @ 1,000 mls/hr Q1H IV Last administered on 12/03/17at 16:43; Start 12/03/17 at 16:43; Stop 12/03/17 at 17:42; Status DC Lorazepam (Ativan) 1 mg 1X ONCE IV Last administered on 12/03/17at 19:30; Start 12/03/17 at 16:45; Stop 12/03/17 at 16:49; Status DC Insulin Human Regular (HumuLIN R VIAL) 10 unit 1X ONCE IV Last administered on 12/03/17at 19:32; Start 12/03/17 at 19:30; Stop 12/03/17 at 19:31; Status DC Ondansetron HCl (Zofran) 4 mg PRN Q8HRS PRN IV NAUSEA/VOMITING; Start 12/03/17 at 20:45; Stop 12/04/17 at 20:44 Sodium Chloride 1,000 ml @ 125 mls/hr Q8H IV Last administered on 12/04/17at 05 :48; Start 12/03/17 at 20:35; Stop 12/04/17 at 20:34 Amitriptyline HCl (Elavil) 50 mg QHS PO ; Start 12/04/17 at 21:00 Fludrocortisone Acetate (Florinef) 0.1 mg DAILY PO ; Start 12/04/17 at 09:00 Insulin Human Lispro (HumaLOG) 10 units TIDWMEALS SQ ; Start 12/04/17 at 08:00 Insulin Glargine (Lantus) 30 units QHS SQ ; Start 12/04/17 at 21:00 Atorvastatin Calcium (Lipitor) 5 mg QHS PO ; Start 12/04/17 at 21:00 Active Scripts Active Fludrocortisone Acetate 0.1 Mg Tablet 0.1 Mg PO DAILY Levemir Flextouch (Insulin Detemir) 300 Units/3 Ml Insuln.pen 30 Units SQ QHS Novolog Flexpen (Insulin Aspart) 300 Units/3 Ml Insuln.pen 10 Units SQ TIDAC Reported Amitriptyline Hcl 50 Mg Tablet 1 Tab PO QHS Lovastatin 20 Mg Tablet 1 Tab PO DAILY Allergies Allergies: Coded Allergies: raspberry (Verified Allergy, Severe, CHOKING SENSATION IN THROAT, 10/25/15) amoxicillin (Verified Allergy, Intermediate, 10/13/17) aspirin (Verified Allergy, Intermediate, 10/13/17) codeine (Verified Allergy, Intermediate, 10/13/17) ibuprofen (Verified Allergy, Intermediate, 10/13/17) morphine (Verified Allergy, Intermediate, 10/13/17) ROS General: No: Chills, Night Sweats, Fatigue, Malaise, Appetite, Other PSYCHOLOGICAL ROS: No: Anxiety, Behavioral Disorder, Concentration difficultie , Decreased libido, Depression, Disorientation, Hallucinations, Hostility, Irritablity, Memory difficulties, Mood Swings, Obsessive thoughts, Physical abuse, Sexual abuse, Sleep disturbances, Suicidal ideation, Other Eyes: No Blurry vision, No Decreased vision, No Double vision, No Dry eyes, No Excessive tearing, No Eye Pain, No Itchy Eyes, No Loss of vision, No Photophobia , No Scotomata, No Uses contacts, No Uses glasses, No Other HEENT: No: Heacaches, Visual Changes, Hearing change, Nasal congestion, Nasal discharge, Oral lesions, Sinus pain, Sore Throat, Epistaxis, Sneezing, Snoring, Tinnitus, Vertigo, Vocal changes, Other Respiratory: No: Cough, Hemoptysis, Orthopnea, Pleuritic Pain, Shortness of breath, SOB with excertion, Sputum Changes, Stridor, Tachypnea, Wheezing, Other Cardiovascular: No Chest Pain, No Palpitations, No Orthopnea, No Paroxysmal Noc. Dyspnea, No Edema, No Lt Headedness, No Other Gastrointestinal: No Nausea, No Vomiting, No Abdominal Pain, No Diarrhea, No Constipation, No Melena, No Hematochezia, No Other Genitourinary: No Dysuria, No Frequency, No Incontinence, No Hematuria, No Retention, No Discharge, No Urgency, No Pain, No Flank Pain, No Other, No , No , No , No , No , No , No Musculoskeletal: Yes Joint Pain, Yes Joint Stiffness; No Gait Disturbance, No Joint Swelling, No Muscle Pain, No Muscular Weakness , No Pain In:, No Swelling In:, No Other Neurological: Yes Gait Disturbance Skin: Yes Dry Skin; No Eczema, No Hair Changes, No Lumps, No Mole Changes, No Mottling, No Nail Changes, No Pruritus, No Rash, No Skin Lesion Changes, No Other, No Acne Physical Exam General: Alert, Cooperative, No acute distress HEENT: PERRLA, EOMI, Mucous membr. moist/pink Lungs: Clear to auscultation Heart: S1S2, no gallops, no murmurs Abdomen: Normal bowel sounds, Soft Extremities: No cyanosis, No edema Skin: No rashes Neuro: Normal speech, Normal tone, Sensation intact Psych/Mental Status: Mental status NL, Mood NL Vitals Vitals Vital Signs Date Time Temp Pulse Resp B/P (MAP) Pulse Ox O2 Delivery O2 Flow Rate FiO2 12/04/17 07:00 97.7 89 20 168/107 (127) 98 Room Air 97.7 Labs Labs Laboratory Tests Test 12/03/17 17:05 12/03/17 19:29 12/03/17 20:40 12/03/17 22:38 White Blood Count 7.1 x10^3/uL (4.0-11.0) Red Blood Count 4.58 x10^6/uL (3.50-5.40) Hemoglobin 12.7 g/dL (12.0-15.5) Hematocrit 38.0 % (36.0-47.0) Mean Corpuscular Volume 83 fL (79-100) Mean Corpuscular Hemoglobin 28 pg (25-35) Mean Corpuscular Hemoglobin Concent 33 g/dL (31-37) Red Cell Distribution Width 13.0 % (11.5-14.5) Platelet Count 271 x10^3/uL (140-400) Neutrophils (%) (Auto) 69 % (31-73) Lymphocytes (%) (Auto) 23 % (24-48) Monocytes (%) (Auto) 6 % (0-9) Eosinophils (%) (Auto) 2 % (0-3) Basophils (%) (Auto) 0 % (0-3) Neutrophils # (Auto) 4.9 x10^3uL (1.8-7.7) Lymphocytes # (Auto) 1.6 x10^3/uL (1.0-4.8) Monocytes # (Auto) 0.4 x10^3/uL (0.0-1.1) Eosinophils # (Auto) 0.1 x10^3/uL (0.0-0.7) Basophils # (Auto) 0.0 x10^3/uL (0.0-0.2) Prothrombin Time 13.2 SEC (11.7-14.0) Prothromb Time International Ratio 1.1 (0.8-1.1) Sodium Level 136 mmol/L (136-145) Potassium Level 4.5 mmol/L (3.5-5.1) Chloride Level 98 mmol/L (98-107) Carbon Dioxide Level 31 mmol/L (21-32) Anion Gap 7 (6-14) Blood Urea Nitrogen 29 mg/dL (7-20) Creatinine 1.0 mg/dL (0.6-1.0) Estimated GFR (Cockcroft-Gault) 57.6 BUN/Creatinine Ratio 29 (6-20) Glucose Level 489 mg/dL (70-99) Calcium Level 9.6 mg/dL (8.5-10.1) Magnesium Level 1.8 mg/dL (1.8-2.4) Total Bilirubin 0.3 mg/dL (0.2-1.0) Aspartate Amino Transf (AST/SGOT) 80 U/L (15-37) Alanine Aminotransferase (ALT/SGPT) 53 U/L (14-59) Alkaline Phosphatase 130 U/L (46-116) Creatine Kinase 85 U/L (26-192) Creatine Kinase MB (Mass) 2.2 ng/mL (0.0-3.6) Creatine Kinase MB Relative Index 2.6 % (0-4) Troponin I Quantitative < 0.017 ng/mL (0.000-0.055) GZ-Xgi-N-Type Natriuretic Peptide 218 pg/mL (0-124) Total Protein 7.1 g/dL (6.4-8.2) Albumin 3.2 g/dL (3.4-5.0) Albumin/Globulin Ratio 0.8 (1.0-1.7) Acetone Level Neg (NEG) Glucose (Fingerstick) 337 mg/dL (70-99) 101 mg/dL (70-99) Urine Collection Type U cath Urine Color Yellow Urine Clarity Cloudy Urine pH 7.0 Urine Specific [place] >=1.030 Urine Protein 30 mg/dL (NEG-TRACE) Urine Glucose (UA) >=1000 mg/dL (NEG) Urine Ketones (Stick) Negative mg/dL (NEG) Urine Blood Trace (NEG) Urine Nitrite Negative (NEG) Urine Bilirubin Negative (NEG) Urine Urobilinogen Dipstick 1.0 mg/dL (0.2 mg/dL) Urine Leukocyte Esterase Small (NEG) Urine RBC Occ /HPF (0-2) Urine WBC 20-40 /HPF (0-4) Urine Squamous Epithelial Cells Mod /LPF Urine Bacteria Many /HPF (0-FEW) Urine Mucus Slight /LPF Test 12/04/17 04:10 12/04/17 07:16 White Blood Count 4.9 x10^3/uL (4.0-11.0) Red Blood Count 4.24 x10^6/uL (3.50-5.40) Hemoglobin 12.0 g/dL (12.0-15.5) Hematocrit 34.9 % (36.0-47.0) Mean Corpuscular Volume 82 fL (79-100) Mean Corpuscular Hemoglobin 28 pg (25-35) Mean Corpuscular Hemoglobin Concent 34 g/dL (31-37) Red Cell Distribution Width 13.5 % (11.5-14.5) Platelet Count 242 x10^3/uL (140-400) Neutrophils (%) (Auto) 51 % (31-73) Lymphocytes (%) (Auto) 37 % (24-48) Monocytes (%) (Auto) 8 % (0-9) Eosinophils (%) (Auto) 4 % (0-3) Basophils (%) (Auto) 1 % (0-3) Neutrophils # (Auto) 2.5 x10^3uL (1.8-7.7) Lymphocytes # (Auto) 1.8 x10^3/uL (1.0-4.8) Monocytes # (Auto) 0.4 x10^3/uL (0.0-1.1) Eosinophils # (Auto) 0.2 x10^3/uL (0.0-0.7) Basophils # (Auto) 0.0 x10^3/uL (0.0-0.2) Sodium Level 140 mmol/L (136-145) Potassium Level 3.6 mmol/L (3.5-5.1) Chloride Level 104 mmol/L (98-107) Carbon Dioxide Level 31 mmol/L (21-32) Anion Gap 5 (6-14) Blood Urea Nitrogen 24 mg/dL (7-20) Creatinine 0.7 mg/dL (0.6-1.0) Estimated GFR (Cockcroft-Gault) 86.9 Glucose Level 293 mg/dL (70-99) Calcium Level 8.5 mg/dL (8.5-10.1) Glucose (Fingerstick) 314 mg/dL (70-99) Laboratory Tests Test 12/03/17 17:05 12/03/17 19:29 12/03/17 20:40 12/03/17 22:38 White Blood Count 7.1 x10^3/uL (4.0-11.0) Red Blood Count 4.58 x10^6/uL (3.50-5.40) Hemoglobin 12.7 g/dL (12.0-15.5) Hematocrit 38.0 % (36.0-47.0) Mean Corpuscular Volume 83 fL (79-100) Mean Corpuscular Hemoglobin 28 pg (25-35) Mean Corpuscular Hemoglobin Concent 33 g/dL (31-37) Red Cell Distribution Width 13.0 % (11.5-14.5) Platelet Count 271 x10^3/uL (140-400) Neutrophils (%) (Auto) 69 % (31-73) Lymphocytes (%) (Auto) 23 % (24-48) Monocytes (%) (Auto) 6 % (0-9) Eosinophils (%) (Auto) 2 % (0-3) Basophils (%) (Auto) 0 % (0-3) Neutrophils # (Auto) 4.9 x10^3uL (1.8-7.7) Lymphocytes # (Auto) 1.6 x10^3/uL (1.0-4.8) Monocytes # (Auto) 0.4 x10^3/uL (0.0-1.1) Eosinophils # (Auto) 0.1 x10^3/uL (0.0-0.7) Basophils # (Auto) 0.0 x10^3/uL (0.0-0.2) Prothrombin Time 13.2 SEC (11.7-14.0) Prothromb Time International Ratio 1.1 (0.8-1.1) Sodium Level 136 mmol/L (136-145) Potassium Level 4.5 mmol/L (3.5-5.1) Chloride Level 98 mmol/L (98-107) Carbon Dioxide Level 31 mmol/L (21-32) Anion Gap 7 (6-14) Blood Urea Nitrogen 29 mg/dL (7-20) Creatinine 1.0 mg/dL (0.6-1.0) Estimated GFR (Cockcroft-Gault) 57.6 BUN/Creatinine Ratio 29 (6-20) Glucose Level 489 mg/dL (70-99) Calcium Level 9.6 mg/dL (8.5-10.1) Magnesium Level 1.8 mg/dL (1.8-2.4) Total Bilirubin 0.3 mg/dL (0.2-1.0) Aspartate Amino Transf (AST/SGOT) 80 U/L (15-37) Alanine Aminotransferase (ALT/SGPT) 53 U/L (14-59) Alkaline Phosphatase 130 U/L (46-116) Creatine Kinase 85 U/L (26-192) Creatine Kinase MB (Mass) 2.2 ng/mL (0.0-3.6) Creatine Kinase MB Relative Index 2.6 % (0-4) Troponin I Quantitative < 0.017 ng/mL (0.000-0.055) PC-Opj-M-Type Natriuretic Peptide 218 pg/mL (0-124) Total Protein 7.1 g/dL (6.4-8.2) Albumin 3.2 g/dL (3.4-5.0) Albumin/Globulin Ratio 0.8 (1.0-1.7) Acetone Level Neg (NEG) Glucose (Fingerstick) 337 mg/dL (70-99) 101 mg/dL (70-99) Urine Collection Type U cath Urine Color Yellow Urine Clarity Cloudy Urine pH 7.0 Urine Specific [place] >=1.030 Urine Protein 30 mg/dL (NEG-TRACE) Urine Glucose (UA) >=1000 mg/dL (NEG) Urine Ketones (Stick) Negative mg/dL (NEG) Urine Blood Trace (NEG) Urine Nitrite Negative (NEG) Urine Bilirubin Negative (NEG) Urine Urobilinogen Dipstick 1.0 mg/dL (0.2 mg/dL) Urine Leukocyte Esterase Small (NEG) Urine RBC Occ /HPF (0-2) Urine WBC 20-40 /HPF (0-4) Urine Squamous Epithelial Cells Mod /LPF Urine Bacteria Many /HPF (0-FEW) Urine Mucus Slight /LPF Test 12/04/17 04:10 12/04/17 07:16 White Blood Count 4.9 x10^3/uL (4.0-11.0) Red Blood Count 4.24 x10^6/uL (3.50-5.40) Hemoglobin 12.0 g/dL (12.0-15.5) Hematocrit 34.9 % (36.0-47.0) Mean Corpuscular Volume 82 fL (79-100) Mean Corpuscular Hemoglobin 28 pg (25-35) Mean Corpuscular Hemoglobin Concent 34 g/dL (31-37) Red Cell Distribution Width 13.5 % (11.5-14.5) Platelet Count 242 x10^3/uL (140-400) Neutrophils (%) (Auto) 51 % (31-73) Lymphocytes (%) (Auto) 37 % (24-48) Monocytes (%) (Auto) 8 % (0-9) Eosinophils (%) (Auto) 4 % (0-3) Basophils (%) (Auto) 1 % (0-3) Neutrophils # (Auto) 2.5 x10^3uL (1.8-7.7) Lymphocytes # (Auto) 1.8 x10^3/uL (1.0-4.8) Monocytes # (Auto) 0.4 x10^3/uL (0.0-1.1) Eosinophils # (Auto) 0.2 x10^3/uL (0.0-0.7) Basophils # (Auto) 0.0 x10^3/uL (0.0-0.2) Sodium Level 140 mmol/L (136-145) Potassium Level 3.6 mmol/L (3.5-5.1) Chloride Level 104 mmol/L (98-107) Carbon Dioxide Level 31 mmol/L (21-32) Anion Gap 5 (6-14) Blood Urea Nitrogen 24 mg/dL (7-20) Creatinine 0.7 mg/dL (0.6-1.0) Estimated GFR (Cockcroft-Gault) 86.9 Glucose Level 293 mg/dL (70-99) Calcium Level 8.5 mg/dL (8.5-10.1) Glucose (Fingerstick) 314 mg/dL (70-99) VTE Prophylaxis Ordered VTE Prophylaxis Devices: Yes VTE Pharmacological Prophylaxi: Yes Assessment/Plan Assessment/Plan syncope orthostatic hypotension weakness, walks with a cane DM2, on insulin 8 years, had been very obese, now normal weight PAT MCCOY MD Dec 04, 2017 08:13
[2017-12-04] MEDS: FLUDROCORTISONE 0.1 MG TABLET PO SCH (08:29)
[2017-12-04] MEDS: INSULIN LISPRO 300 UNITS/3 ML INSULN.PEN. SQ SCH ×6 (08:35→17:00)
[2017-12-04] MEDS ORDERED: DEXTROSE 50% 25 GM / 50ML DISP.SYRIN. IV PRN (13:45)
[2017-12-04] MEDS ORDERED: MIDODRINE 2.5 MG TABLET PO ONE (14:30)
--- NOTE | 2017-12-04 14:30 | PDOC2 ---
NEUROLOGY CONSULT Date of Admission Date of Admission DATE: 12/04/17 TIME: 14:19 Reason for Consult Reason for Consult: Dizziness Referring Physician Referring Physician: Dr. Thomas Source Source: Chart review, Patient History of Present Illness History of Present Illness The patient is a 57-year-old right-handed female with type 1 diabetes who has had orthostatic lightheadedness for the last several months. I saw her for the same problem when she was here last month. She does have somewhat of a vertiginous sensation but this is mostly orthostatic lightheadedness. She also has blurred vision, headaches, but no dysarthria, dysphagia, diplopia, numbness , focal weakness, tinnitus, or hearing loss. She says that she did have a mini stroke treated at [facility] 5 years ago, and was told studies were negative, so essentially this was a transient ischemic attack. 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, no alcohol or tobacco, currently unemployed Current Medications Current Medications Current Medications Sodium Chloride 1,000 ml @ 1,000 mls/hr Q1H IV Last administered on 12/03/17at 16:43; Start 12/03/17 at 16:43; Stop 12/03/17 at 17:42; Status DC Lorazepam (Ativan) 1 mg 1X ONCE IV Last administered on 12/03/17at 19:30; Start 12/03/17 at 16:45; Stop 12/03/17 at 16:49; Status DC Insulin Human Regular (HumuLIN R VIAL) 10 unit 1X ONCE IV Last administered on 12/03/17at 19:32; Start 12/03/17 at 19:30; Stop 12/03/17 at 19:31; Status DC Ondansetron HCl (Zofran) 4 mg PRN Q8HRS PRN IV NAUSEA/VOMITING; Start 12/03/17 at 20:45; Stop 12/04/17 at 20:44 Sodium Chloride 1,000 ml @ 125 mls/hr Q8H IV Last administered on 12/04/17at 12 :19; Start 12/03/17 at 20:35; Stop 12/04/17 at 20:34 Amitriptyline HCl (Elavil) 50 mg QHS PO ; Start 12/04/17 at 21:00 Fludrocortisone Acetate (Florinef) 0.1 mg DAILY PO Last administered on at 08:29; Start 12/04/17 at 09:00 Insulin Human Lispro (HumaLOG) 10 units TIDWMEALS SQ Last administered on at 12:24; Start 12/04/17 at 08:00; Stop 12/04/17 at 13:32; Status DC Insulin Glargine (Lantus) 30 units QHS SQ ; Start 12/04/17 at 21:00 Atorvastatin Calcium (Lipitor) 5 mg QHS PO ; Start 12/04/17 at 21:00 Insulin Human Lispro (HumaLOG) 14 units TIDWMEALS SQ ; Start 12/04/17 at 14:00 Insulin Human Lispro (HumaLOG) 0-9 UNITS TIDWMEALS SQ ; Start 12/04/17 at 14:00 Dextrose (Dextrose 50%-Water Syringe) 12.5 gm PRN Q15MIN PRN IV SEE COMMENTS; Start 12/04/17 at 13:45 Active Scripts Active Fludrocortisone Acetate 0.1 Mg Tablet 0.1 Mg PO DAILY Levemir Flextouch (Insulin Detemir) 300 Units/3 Ml Insuln.pen 30 Units SQ QHS Novolog Flexpen (Insulin Aspart) 300 Units/3 Ml Insuln.pen 10 Units SQ TIDAC Reported Amitriptyline Hcl 50 Mg Tablet 1 Tab PO QHS Lovastatin 20 Mg Tablet 1 Tab PO DAILY Allergies Allergies: Coded Allergies: raspberry (Verified Allergy, Severe, CHOKING SENSATION IN THROAT, 10/25/15) amoxicillin (Verified Allergy, Intermediate, 10/13/17) aspirin (Verified Allergy, Intermediate, 10/13/17) codeine (Verified Allergy, Intermediate, 10/13/17) ibuprofen (Verified Allergy, Intermediate, 10/13/17) morphine (Verified Allergy, Intermediate, 10/13/17) ROS Review of System Patient denies fevers, chills, weight loss, dyspnea, angina, abdominal pain, change in bowels, or dysuria. 14-point review of systems is negative. Physical Exam Physical Examination General: Well-developed, well-nourished, white female, in no acute distress HEENT: Normocephalic andatraumatic. Temporal arteriespulsatile and nontender. Neck: Supple without bruit, no meningismus Musculoskeletal: Stability:see neurologic. Gait exam:see neurologic. Tone:see neurologic. Strength:see neurologic. Neurological: Mental Status:intact, orientation, memory, attention span/concentration, language, fund of knowledge normal. Cranial Nerves:Pupils equal and reactive to light, extraocular movements areintact, visual guzmán are full to confrontation. Facial sensation is normal. There is no facial asymmetry. Vestibulo-ocular reflex is intact. Palate elvates and tongue protrudes in midline. All other cranial related problems are negative except as mentioned before.Reflexes:1 + and symmetric with flexor plantar responses. Motor:5/5 strength with normal tone and bulk. Coordination:Finger-nose finger and heel-to -caraballo testing are normal. Rapid alternating movements and fine finger movements are intact. Gait:Not tested. Sensory:Stocking loss Vitals VITALS Vital Signs Date Time Temp Pulse Resp B/P (MAP) Pulse Ox O2 Delivery O2 Flow Rate FiO2 12/04/17 10:56 93 128/82 (97) 12/04/17 10:54 97.0 20 97 Room Air 97.0 Labs Labs Laboratory Tests Test 12/03/17 17:05 12/03/17 19:29 12/03/17 20:40 12/03/17 22:38 White Blood Count 7.1 x10^3/uL (4.0-11.0) Red Blood Count 4.58 x10^6/uL (3.50-5.40) Hemoglobin 12.7 g/dL (12.0-15.5) Hematocrit 38.0 % (36.0-47.0) Mean Corpuscular Volume 83 fL (79-100) Mean Corpuscular Hemoglobin 28 pg (25-35) Mean Corpuscular Hemoglobin Concent 33 g/dL (31-37) Red Cell Distribution Width 13.0 % (11.5-14.5) Platelet Count 271 x10^3/uL (140-400) Neutrophils (%) (Auto) 69 % (31-73) Lymphocytes (%) (Auto) 23 % (24-48) Monocytes (%) (Auto) 6 % (0-9) Eosinophils (%) (Auto) 2 % (0-3) Basophils (%) (Auto) 0 % (0-3) Neutrophils # (Auto) 4.9 x10^3uL (1.8-7.7) Lymphocytes # (Auto) 1.6 x10^3/uL (1.0-4.8) Monocytes # (Auto) 0.4 x10^3/uL (0.0-1.1) Eosinophils # (Auto) 0.1 x10^3/uL (0.0-0.7) Basophils # (Auto) 0.0 x10^3/uL (0.0-0.2) Prothrombin Time 13.2 SEC (11.7-14.0) Prothromb Time International Ratio 1.1 (0.8-1.1) Sodium Level 136 mmol/L (136-145) Potassium Level 4.5 mmol/L (3.5-5.1) Chloride Level 98 mmol/L (98-107) Carbon Dioxide Level 31 mmol/L (21-32) Anion Gap 7 (6-14) Blood Urea Nitrogen 29 mg/dL (7-20) Creatinine 1.0 mg/dL (0.6-1.0) Estimated GFR (Cockcroft-Gault) 57.6 BUN/Creatinine Ratio 29 (6-20) Glucose Level 489 mg/dL (70-99) Calcium Level 9.6 mg/dL (8.5-10.1) Magnesium Level 1.8 mg/dL (1.8-2.4) Total Bilirubin 0.3 mg/dL (0.2-1.0) Aspartate Amino Transf (AST/SGOT) 80 U/L (15-37) Alanine Aminotransferase (ALT/SGPT) 53 U/L (14-59) Alkaline Phosphatase 130 U/L (46-116) Creatine Kinase 85 U/L (26-192) Creatine Kinase MB (Mass) 2.2 ng/mL (0.0-3.6) Creatine Kinase MB Relative Index 2.6 % (0-4) Troponin I Quantitative < 0.017 ng/mL (0.000-0.055) VI-Zag-E-Type Natriuretic Peptide 218 pg/mL (0-124) Total Protein 7.1 g/dL (6.4-8.2) Albumin 3.2 g/dL (3.4-5.0) Albumin/Globulin Ratio 0.8 (1.0-1.7) Acetone Level Neg (NEG) Glucose (Fingerstick) 337 mg/dL (70-99) 101 mg/dL (70-99) Urine Collection Type U cath Urine Color Yellow Urine Clarity Cloudy Urine pH 7.0 Urine Specific [place] >=1.030 Urine Protein 30 mg/dL (NEG-TRACE) Urine Glucose (UA) >=1000 mg/dL (NEG) Urine Ketones (Stick) Negative mg/dL (NEG) Urine Blood Trace (NEG) Urine Nitrite Negative (NEG) Urine Bilirubin Negative (NEG) Urine Urobilinogen Dipstick 1.0 mg/dL (0.2 mg/dL) Urine Leukocyte Esterase Small (NEG) Urine RBC Occ /HPF (0-2) Urine WBC 20-40 /HPF (0-4) Urine Squamous Epithelial Cells Mod /LPF Urine Bacteria Many /HPF (0-FEW) Urine Mucus Slight /LPF Test 12/04/17 04:10 12/04/17 07:16 12/04/17 11:30 12/04/17 13:23 White Blood Count 4.9 x10^3/uL (4.0-11.0) Red Blood Count 4.24 x10^6/uL (3.50-5.40) Hemoglobin 12.0 g/dL (12.0-15.5) Hematocrit 34.9 % (36.0-47.0) Mean Corpuscular Volume 82 fL (79-100) Mean Corpuscular Hemoglobin 28 pg (25-35) Mean Corpuscular Hemoglobin Concent 34 g/dL (31-37) Red Cell Distribution Width 13.5 % (11.5-14.5) Platelet Count 242 x10^3/uL (140-400) Neutrophils (%) (Auto) 51 % (31-73) Lymphocytes (%) (Auto) 37 % (24-48) Monocytes (%) (Auto) 8 % (0-9) Eosinophils (%) (Auto) 4 % (0-3) Basophils (%) (Auto) 1 % (0-3) Neutrophils # (Auto) 2.5 x10^3uL (1.8-7.7) Lymphocytes # (Auto) 1.8 x10^3/uL (1.0-4.8) Monocytes # (Auto) 0.4 x10^3/uL (0.0-1.1) Eosinophils # (Auto) 0.2 x10^3/uL (0.0-0.7) Basophils # (Auto) 0.0 x10^3/uL (0.0-0.2) Sodium Level 140 mmol/L (136-145) Potassium Level 3.6 mmol/L (3.5-5.1) Chloride Level 104 mmol/L (98-107) Carbon Dioxide Level 31 mmol/L (21-32) Anion Gap 5 (6-14) Blood Urea Nitrogen 24 mg/dL (7-20) Creatinine 0.7 mg/dL (0.6-1.0) Estimated GFR (Cockcroft-Gault) 86.9 Glucose Level 293 mg/dL (70-99) Calcium Level 8.5 mg/dL (8.5-10.1) Glucose (Fingerstick) 314 mg/dL (70-99) 334 mg/dL (70-99) 314 mg/dL (70-99) Laboratory Tests Test 12/03/17 17:05 12/03/17 19:29 12/03/17 20:40 12/03/17 22:38 White Blood Count 7.1 x10^3/uL (4.0-11.0) Red Blood Count 4.58 x10^6/uL (3.50-5.40) Hemoglobin 12.7 g/dL (12.0-15.5) Hematocrit 38.0 % (36.0-47.0) Mean Corpuscular Volume 83 fL (79-100) Mean Corpuscular Hemoglobin 28 pg (25-35) Mean Corpuscular Hemoglobin Concent 33 g/dL (31-37) Red Cell Distribution Width 13.0 % (11.5-14.5) Platelet Count 271 x10^3/uL (140-400) Neutrophils (%) (Auto) 69 % (31-73) Lymphocytes (%) (Auto) 23 % (24-48) Monocytes (%) (Auto) 6 % (0-9) Eosinophils (%) (Auto) 2 % (0-3) Basophils (%) (Auto) 0 % (0-3) Neutrophils # (Auto) 4.9 x10^3uL (1.8-7.7) Lymphocytes # (Auto) 1.6 x10^3/uL (1.0-4.8) Monocytes # (Auto) 0.4 x10^3/uL (0.0-1.1) Eosinophils # (Auto) 0.1 x10^3/uL (0.0-0.7) Basophils # (Auto) 0.0 x10^3/uL (0.0-0.2) Prothrombin Time 13.2 SEC (11.7-14.0) Prothromb Time International Ratio 1.1 (0.8-1.1) Sodium Level 136 mmol/L (136-145) Potassium Level 4.5 mmol/L (3.5-5.1) Chloride Level 98 mmol/L (98-107) Carbon Dioxide Level 31 mmol/L (21-32) Anion Gap 7 (6-14) Blood Urea Nitrogen 29 mg/dL (7-20) Creatinine 1.0 mg/dL (0.6-1.0) Estimated GFR (Cockcroft-Gault) 57.6 BUN/Creatinine Ratio 29 (6-20) Glucose Level 489 mg/dL (70-99) Calcium Level 9.6 mg/dL (8.5-10.1) Magnesium Level 1.8 mg/dL (1.8-2.4) Total Bilirubin 0.3 mg/dL (0.2-1.0) Aspartate Amino Transf (AST/SGOT) 80 U/L (15-37) Alanine Aminotransferase (ALT/SGPT) 53 U/L (14-59) Alkaline Phosphatase 130 U/L (46-116) Creatine Kinase 85 U/L (26-192) Creatine Kinase MB (Mass) 2.2 ng/mL (0.0-3.6) Creatine Kinase MB Relative Index 2.6 % (0-4) Troponin I Quantitative < 0.017 ng/mL (0.000-0.055) KZ-Awe-P-Type Natriuretic Peptide 218 pg/mL (0-124) Total Protein 7.1 g/dL (6.4-8.2) Albumin 3.2 g/dL (3.4-5.0) Albumin/Globulin Ratio 0.8 (1.0-1.7) Acetone Level Neg (NEG) Glucose (Fingerstick) 337 mg/dL (70-99) 101 mg/dL (70-99) Urine Collection Type U cath Urine Color Yellow Urine Clarity Cloudy Urine pH 7.0 Urine Specific [place] >=1.030 Urine Protein 30 mg/dL (NEG-TRACE) Urine Glucose (UA) >=1000 mg/dL (NEG) Urine Ketones (Stick) Negative mg/dL (NEG) Urine Blood Trace (NEG) Urine Nitrite Negative (NEG) Urine Bilirubin Negative (NEG) Urine Urobilinogen Dipstick 1.0 mg/dL (0.2 mg/dL) Urine Leukocyte Esterase Small (NEG) Urine RBC Occ /HPF (0-2) Urine WBC 20-40 /HPF (0-4) Urine Squamous Epithelial Cells Mod /LPF Urine Bacteria Many /HPF (0-FEW) Urine Mucus Slight /LPF Test 12/04/17 04:10 12/04/17 07:16 12/04/17 11:30 12/04/17 13:23 White Blood Count 4.9 x10^3/uL (4.0-11.0) Red Blood Count 4.24 x10^6/uL (3.50-5.40) Hemoglobin 12.0 g/dL (12.0-15.5) Hematocrit 34.9 % (36.0-47.0) Mean Corpuscular Volume 82 fL (79-100) Mean Corpuscular Hemoglobin 28 pg (25-35) Mean Corpuscular Hemoglobin Concent 34 g/dL (31-37) Red Cell Distribution Width 13.5 % (11.5-14.5) Platelet Count 242 x10^3/uL (140-400) Neutrophils (%) (Auto) 51 % (31-73) Lymphocytes (%) (Auto) 37 % (24-48) Monocytes (%) (Auto) 8 % (0-9) Eosinophils (%) (Auto) 4 % (0-3) Basophils (%) (Auto) 1 % (0-3) Neutrophils # (Auto) 2.5 x10^3uL (1.8-7.7) Lymphocytes # (Auto) 1.8 x10^3/uL (1.0-4.8) Monocytes # (Auto) 0.4 x10^3/uL (0.0-1.1) Eosinophils # (Auto) 0.2 x10^3/uL (0.0-0.7) Basophils # (Auto) 0.0 x10^3/uL (0.0-0.2) Sodium Level 140 mmol/L (136-145) Potassium Level 3.6 mmol/L (3.5-5.1) Chloride Level 104 mmol/L (98-107) Carbon Dioxide Level 31 mmol/L (21-32) Anion Gap 5 (6-14) Blood Urea Nitrogen 24 mg/dL (7-20) Creatinine 0.7 mg/dL (0.6-1.0) Estimated GFR (Cockcroft-Gault) 86.9 Glucose Level 293 mg/dL (70-99) Calcium Level 8.5 mg/dL (8.5-10.1) Glucose (Fingerstick) 314 mg/dL (70-99) 334 mg/dL (70-99) 314 mg/dL (70-99) Images Images CT head yesterday: There is generalized parenchymal atrophy. Areas of decreased attenuation are seen within the periventricular and subcortical white matter of both cerebral hemispheres consistent with areas of small vessel ischemic disease. No acute parenchymal abnormality is seen. No extra-axial fluid collection is noted. No skull fracture is seen. Impression: No acute intracranial abnormality is seen. She also had an MRI of the brain on 11/04, negative Assessment/Plan Assessment/Plan Impression: Dizziness, due to orthostatic hypotension, last time I saw her I thought there could be a vestibular component but none is apparent either this time or last time on exam. Also note that she had a negative brain MRI last time. She also had extensive blood work for other causes of neuropathy. I believe that the orthostasis is due to diabetic autonomic neuropathy. I find no evidence of multiple system atrophy on exam. She has failed on Florinef. Recommendations: Add-on ProAmatine, I discussed risks, benefits, alternatives, and side effects. No need to repeat further neurological workup. She may need to stay in [facility]. Thank you for letting me help with the patient's care. LANA ARAYA MD Dec 04, 2017 14:29
--- NOTE | 2017-12-04 14:31 | PDOC2 ---
CONSULT Date of Consult Date of Consult DATE: 12/04/17 TIME: 14:24 Reason for Consult Reason for Consult: Syncope Referring Physician Referring Physician: Dr Randall Identification/Chief Complaint Chief Complaint Syncope History of Present Illness Reason for Visit: This patient is a pleasant 57-year-old lady that has a known history of syncope , orthostatic hypotension, diabetes. She has been admitted to this institution once before due to to problems with orthostatic hypotension and she was started on fludrocortisone. The patient was at home and she got up after getting out of a car and had a blackout episode. Her brought her to the emergency room where she was seen and evaluated and he was decided to admit her for further workup and treatment. She states that her blood pressures have been very eating a lot and at times her up over 200 but at times they dropped down to 50 and she blacks out. Her blood sugars have also been very eating a lot and she states that at home and they run between 119 to 179 but when she arrived here she had a blood sugar of over 400. The patient states that she has been taking her usual dose of insulin. Patient denies any chest pains, denies any palpitations, denies any dyspnea. Past Medical History Cardiovascular: HTN, Syncope, Hyperlipidemia Pulmonary: COPD CENTRAL NERVOUS SYSTEM: Periperal neuropathy, TIA Psych: Anxiety, Depression Musculoskeletal: Osteoarthritis, Other Infectious disease: Other Renal/: UTI, Urinary Incontinence Endocrine: Diabetes Past Surgical History Past Surgical History: Other Family History Family History: No Significant Social History No ALCOHOL: none Drugs: None Current Problem List Problem List Problems Medical Problems: (1) Hyperglycemia due to type 1 diabetes mellitus Status: Acute (2) Orthostatic hypotension Status: Acute (3) Visual changes Status: Acute Current Medications Current Medications Current Medications Sodium Chloride 1,000 ml @ 1,000 mls/hr Q1H IV Last administered on 12/03/17at 16:43; Start 12/03/17 at 16:43; Stop 12/03/17 at 17:42; Status DC Lorazepam (Ativan) 1 mg 1X ONCE IV Last administered on 12/03/17at 19:30; Start 12/03/17 at 16:45; Stop 12/03/17 at 16:49; Status DC Insulin Human Regular (HumuLIN R VIAL) 10 unit 1X ONCE IV Last administered on 12/03/17at 19:32; Start 12/03/17 at 19:30; Stop 12/03/17 at 19:31; Status DC Ondansetron HCl (Zofran) 4 mg PRN Q8HRS PRN IV NAUSEA/VOMITING; Start 12/03/17 at 20:45; Stop 12/04/17 at 20:44 Sodium Chloride 1,000 ml @ 125 mls/hr Q8H IV Last administered on 12/04/17at 12 :19; Start 12/03/17 at 20:35; Stop 12/04/17 at 20:34 Amitriptyline HCl (Elavil) 50 mg QHS PO ; Start 12/04/17 at 21:00 Fludrocortisone Acetate (Florinef) 0.1 mg DAILY PO Last administered on at 08:29; Start 12/04/17 at 09:00 Insulin Human Lispro (HumaLOG) 10 units TIDWMEALS SQ Last administered on at 12:24; Start 12/04/17 at 08:00; Stop 12/04/17 at 13:32; Status DC Insulin Glargine (Lantus) 30 units QHS SQ ; Start 12/04/17 at 21:00 Atorvastatin Calcium (Lipitor) 5 mg QHS PO ; Start 12/04/17 at 21:00 Insulin Human Lispro (HumaLOG) 14 units TIDWMEALS SQ ; Start 12/04/17 at 14:00 Insulin Human Lispro (HumaLOG) 0-9 UNITS TIDWMEALS SQ ; Start 12/04/17 at 14:00 Dextrose (Dextrose 50%-Water Syringe) 12.5 gm PRN Q15MIN PRN IV SEE COMMENTS; Start 12/04/17 at 13:45 Midodrine (Proamatine) 2.5 mg 1X ONCE PO ; Start 12/04/17 at 14:30; Stop at 14:31; Status UNV Midodrine (Proamatine) 2.5 mg [id number] PO ; Start 12/05/17 at 07:00; Status UNV Active Scripts Active Fludrocortisone Acetate 0.1 Mg Tablet 0.1 Mg PO DAILY Levemir Flextouch (Insulin Detemir) 300 Units/3 Ml Insuln.pen 30 Units SQ QHS Novolog Flexpen (Insulin Aspart) 300 Units/3 Ml Insuln.pen 10 Units SQ TIDAC Reported Amitriptyline Hcl 50 Mg Tablet 1 Tab PO QHS Lovastatin 20 Mg Tablet 1 Tab PO DAILY Allergies Allergies: Coded Allergies: raspberry (Verified Allergy, Severe, CHOKING SENSATION IN THROAT, 10/25/15) amoxicillin (Verified Allergy, Intermediate, 10/13/17) aspirin (Verified Allergy, Intermediate, 10/13/17) codeine (Verified Allergy, Intermediate, 10/13/17) ibuprofen (Verified Allergy, Intermediate, 10/13/17) morphine (Verified Allergy, Intermediate, 10/13/17) Physical Exam General: Alert, Oriented X3, Cooperative HEENT: Atraumatic, PERRLA Lungs: Clear to auscultation Heart: Regular rate, Normal S1, Normal S2 Abdomen: Normal bowel sounds, Soft Extremities: Other (excoriations on the right knee and right pretibial area that she suffered with her fall when she passed out) Psych/Mental Status: Mental status NL Vitals VITALS Vital Signs Date Time Temp Pulse Resp B/P (MAP) Pulse Ox O2 Delivery O2 Flow Rate FiO2 12/04/17 10:56 93 128/82 (97) 12/04/17 10:54 97.0 20 97 Room Air 97.0 Labs Labs Laboratory Tests Test 12/03/17 17:05 12/03/17 19:29 12/03/17 20:40 12/03/17 22:38 White Blood Count 7.1 x10^3/uL (4.0-11.0) Red Blood Count 4.58 x10^6/uL (3.50-5.40) Hemoglobin 12.7 g/dL (12.0-15.5) Hematocrit 38.0 % (36.0-47.0) Mean Corpuscular Volume 83 fL (79-100) Mean Corpuscular Hemoglobin 28 pg (25-35) Mean Corpuscular Hemoglobin Concent 33 g/dL (31-37) Red Cell Distribution Width 13.0 % (11.5-14.5) Platelet Count 271 x10^3/uL (140-400) Neutrophils (%) (Auto) 69 % (31-73) Lymphocytes (%) (Auto) 23 % (24-48) Monocytes (%) (Auto) 6 % (0-9) Eosinophils (%) (Auto) 2 % (0-3) Basophils (%) (Auto) 0 % (0-3) Neutrophils # (Auto) 4.9 x10^3uL (1.8-7.7) Lymphocytes # (Auto) 1.6 x10^3/uL (1.0-4.8) Monocytes # (Auto) 0.4 x10^3/uL (0.0-1.1) Eosinophils # (Auto) 0.1 x10^3/uL (0.0-0.7) Basophils # (Auto) 0.0 x10^3/uL (0.0-0.2) Prothrombin Time 13.2 SEC (11.7-14.0) Prothromb Time International Ratio 1.1 (0.8-1.1) Sodium Level 136 mmol/L (136-145) Potassium Level 4.5 mmol/L (3.5-5.1) Chloride Level 98 mmol/L (98-107) Carbon Dioxide Level 31 mmol/L (21-32) Anion Gap 7 (6-14) Blood Urea Nitrogen 29 mg/dL (7-20) Creatinine 1.0 mg/dL (0.6-1.0) Estimated GFR (Cockcroft-Gault) 57.6 BUN/Creatinine Ratio 29 (6-20) Glucose Level 489 mg/dL (70-99) Calcium Level 9.6 mg/dL (8.5-10.1) Magnesium Level 1.8 mg/dL (1.8-2.4) Total Bilirubin 0.3 mg/dL (0.2-1.0) Aspartate Amino Transf (AST/SGOT) 80 U/L (15-37) Alanine Aminotransferase (ALT/SGPT) 53 U/L (14-59) Alkaline Phosphatase 130 U/L (46-116) Creatine Kinase 85 U/L (26-192) Creatine Kinase MB (Mass) 2.2 ng/mL (0.0-3.6) Creatine Kinase MB Relative Index 2.6 % (0-4) Troponin I Quantitative < 0.017 ng/mL (0.000-0.055) UC-Xds-Y-Type Natriuretic Peptide 218 pg/mL (0-124) Total Protein 7.1 g/dL (6.4-8.2) Albumin 3.2 g/dL (3.4-5.0) Albumin/Globulin Ratio 0.8 (1.0-1.7) Acetone Level Neg (NEG) Glucose (Fingerstick) 337 mg/dL (70-99) 101 mg/dL (70-99) Urine Collection Type U cath Urine Color Yellow Urine Clarity Cloudy Urine pH 7.0 Urine Specific [place] >=1.030 Urine Protein 30 mg/dL (NEG-TRACE) Urine Glucose (UA) >=1000 mg/dL (NEG) Urine Ketones (Stick) Negative mg/dL (NEG) Urine Blood Trace (NEG) Urine Nitrite Negative (NEG) Urine Bilirubin Negative (NEG) Urine Urobilinogen Dipstick 1.0 mg/dL (0.2 mg/dL) Urine Leukocyte Esterase Small (NEG) Urine RBC Occ /HPF (0-2) Urine WBC 20-40 /HPF (0-4) Urine Squamous Epithelial Cells Mod /LPF Urine Bacteria Many /HPF (0-FEW) Urine Mucus Slight /LPF Test 12/04/17 04:10 12/04/17 07:16 12/04/17 11:30 12/04/17 13:23 White Blood Count 4.9 x10^3/uL (4.0-11.0) Red Blood Count 4.24 x10^6/uL (3.50-5.40) Hemoglobin 12.0 g/dL (12.0-15.5) Hematocrit 34.9 % (36.0-47.0) Mean Corpuscular Volume 82 fL (79-100) Mean Corpuscular Hemoglobin 28 pg (25-35) Mean Corpuscular Hemoglobin Concent 34 g/dL (31-37) Red Cell Distribution Width 13.5 % (11.5-14.5) Platelet Count 242 x10^3/uL (140-400) Neutrophils (%) (Auto) 51 % (31-73) Lymphocytes (%) (Auto) 37 % (24-48) Monocytes (%) (Auto) 8 % (0-9) Eosinophils (%) (Auto) 4 % (0-3) Basophils (%) (Auto) 1 % (0-3) Neutrophils # (Auto) 2.5 x10^3uL (1.8-7.7) Lymphocytes # (Auto) 1.8 x10^3/uL (1.0-4.8) Monocytes # (Auto) 0.4 x10^3/uL (0.0-1.1) Eosinophils # (Auto) 0.2 x10^3/uL (0.0-0.7) Basophils # (Auto) 0.0 x10^3/uL (0.0-0.2) Sodium Level 140 mmol/L (136-145) Potassium Level 3.6 mmol/L (3.5-5.1) Chloride Level 104 mmol/L (98-107) Carbon Dioxide Level 31 mmol/L (21-32) Anion Gap 5 (6-14) Blood Urea Nitrogen 24 mg/dL (7-20) Creatinine 0.7 mg/dL (0.6-1.0) Estimated GFR (Cockcroft-Gault) 86.9 Glucose Level 293 mg/dL (70-99) Calcium Level 8.5 mg/dL (8.5-10.1) Glucose (Fingerstick) 314 mg/dL (70-99) 334 mg/dL (70-99) 314 mg/dL (70-99) Laboratory Tests Test 12/03/17 17:05 12/03/17 19:29 12/03/17 20:40 12/03/17 22:38 White Blood Count 7.1 x10^3/uL (4.0-11.0) Red Blood Count 4.58 x10^6/uL (3.50-5.40) Hemoglobin 12.7 g/dL (12.0-15.5) Hematocrit 38.0 % (36.0-47.0) Mean Corpuscular Volume 83 fL (79-100) Mean Corpuscular Hemoglobin 28 pg (25-35) Mean Corpuscular Hemoglobin Concent 33 g/dL (31-37) Red Cell Distribution Width 13.0 % (11.5-14.5) Platelet Count 271 x10^3/uL (140-400) Neutrophils (%) (Auto) 69 % (31-73) Lymphocytes (%) (Auto) 23 % (24-48) Monocytes (%) (Auto) 6 % (0-9) Eosinophils (%) (Auto) 2 % (0-3) Basophils (%) (Auto) 0 % (0-3) Neutrophils # (Auto) 4.9 x10^3uL (1.8-7.7) Lymphocytes # (Auto) 1.6 x10^3/uL (1.0-4.8) Monocytes # (Auto) 0.4 x10^3/uL (0.0-1.1) Eosinophils # (Auto) 0.1 x10^3/uL (0.0-0.7) Basophils # (Auto) 0.0 x10^3/uL (0.0-0.2) Prothrombin Time 13.2 SEC (11.7-14.0) Prothromb Time International Ratio 1.1 (0.8-1.1) Sodium Level 136 mmol/L (136-145) Potassium Level 4.5 mmol/L (3.5-5.1) Chloride Level 98 mmol/L (98-107) Carbon Dioxide Level 31 mmol/L (21-32) Anion Gap 7 (6-14) Blood Urea Nitrogen 29 mg/dL (7-20) Creatinine 1.0 mg/dL (0.6-1.0) Estimated GFR (Cockcroft-Gault) 57.6 BUN/Creatinine Ratio 29 (6-20) Glucose Level 489 mg/dL (70-99) Calcium Level 9.6 mg/dL (8.5-10.1) Magnesium Level 1.8 mg/dL (1.8-2.4) Total Bilirubin 0.3 mg/dL (0.2-1.0) Aspartate Amino Transf (AST/SGOT) 80 U/L (15-37) Alanine Aminotransferase (ALT/SGPT) 53 U/L (14-59) Alkaline Phosphatase 130 U/L (46-116) Creatine Kinase 85 U/L (26-192) Creatine Kinase MB (Mass) 2.2 ng/mL (0.0-3.6) Creatine Kinase MB Relative Index 2.6 % (0-4) Troponin I Quantitative < 0.017 ng/mL (0.000-0.055) VC-Kxv-V-Type Natriuretic Peptide 218 pg/mL (0-124) Total Protein 7.1 g/dL (6.4-8.2) Albumin 3.2 g/dL (3.4-5.0) Albumin/Globulin Ratio 0.8 (1.0-1.7) Acetone Level Neg (NEG) Glucose (Fingerstick) 337 mg/dL (70-99) 101 mg/dL (70-99) Urine Collection Type U cath Urine Color Yellow Urine Clarity Cloudy Urine pH 7.0 Urine Specific [place] >=1.030 Urine Protein 30 mg/dL (NEG-TRACE) Urine Glucose (UA) >=1000 mg/dL (NEG) Urine Ketones (Stick) Negative mg/dL (NEG) Urine Blood Trace (NEG) Urine Nitrite Negative (NEG) Urine Bilirubin Negative (NEG) Urine Urobilinogen Dipstick 1.0 mg/dL (0.2 mg/dL) Urine Leukocyte Esterase Small (NEG) Urine RBC Occ /HPF (0-2) Urine WBC 20-40 /HPF (0-4) Urine Squamous Epithelial Cells Mod /LPF Urine Bacteria Many /HPF (0-FEW) Urine Mucus Slight /LPF Test 12/04/17 04:10 12/04/17 07:16 12/04/17 11:30 12/04/17 13:23 White Blood Count 4.9 x10^3/uL (4.0-11.0) Red Blood Count 4.24 x10^6/uL (3.50-5.40) Hemoglobin 12.0 g/dL (12.0-15.5) Hematocrit 34.9 % (36.0-47.0) Mean Corpuscular Volume 82 fL (79-100) Mean Corpuscular Hemoglobin 28 pg (25-35) Mean Corpuscular Hemoglobin Concent 34 g/dL (31-37) Red Cell Distribution Width 13.5 % (11.5-14.5) Platelet Count 242 x10^3/uL (140-400) Neutrophils (%) (Auto) 51 % (31-73) Lymphocytes (%) (Auto) 37 % (24-48) Monocytes (%) (Auto) 8 % (0-9) Eosinophils (%) (Auto) 4 % (0-3) Basophils (%) (Auto) 1 % (0-3) Neutrophils # (Auto) 2.5 x10^3uL (1.8-7.7) Lymphocytes # (Auto) 1.8 x10^3/uL (1.0-4.8) Monocytes # (Auto) 0.4 x10^3/uL (0.0-1.1) Eosinophils # (Auto) 0.2 x10^3/uL (0.0-0.7) Basophils # (Auto) 0.0 x10^3/uL (0.0-0.2) Sodium Level 140 mmol/L (136-145) Potassium Level 3.6 mmol/L (3.5-5.1) Chloride Level 104 mmol/L (98-107) Carbon Dioxide Level 31 mmol/L (21-32) Anion Gap 5 (6-14) Blood Urea Nitrogen 24 mg/dL (7-20) Creatinine 0.7 mg/dL (0.6-1.0) Estimated GFR (Cockcroft-Gault) 86.9 Glucose Level 293 mg/dL (70-99) Calcium Level 8.5 mg/dL (8.5-10.1) Glucose (Fingerstick) 314 mg/dL (70-99) 334 mg/dL (70-99) 314 mg/dL (70-99) Assessment/Plan Assessment/Plan This patient comes in with syncope and orthostatic hypotension as well as uncontrolled diabetes. I would like to monitor her to make sure that there are no issues with her heart rhythm and we need to follow her blood pressures as well as her rhythm. I am concerned with her blood sugars as well as the adrenal situation therefore I would like to get a CT of the abdomen to look at the pancreas and adrenal glands. In addition to this I would like to get a tilt table test. I will be happy to follow the patient with you. Thank you very much for asking me to participate in the care of this patient. VENESSA LOWE MD Dec 04, 2017 14:31
[2017-12-04] MEDS: AMITRIPTYLINE HCL 50 MG TABLET PO SCH (20:59)
[2017-12-04] MEDS ORDERED: ATORVASTATIN CALCIUM 10 MG TABLET. PO SCH (21:00)
[2017-12-04] MEDS: INSULIN GLARGINE 300 UNITS/3 ML INSULN.PEN. SQ SCH (21:05)
[2017-12-05] VITALS (8 sets, daily range): BP systolic 103–180; BP diastolic 63–104
[2017-12-05 04:34] LABS: BASO % 1 % (0-3); EOS # 0.2 x10^3/uL (0.0-0.7); EOS % 5 % (0-3); HEMATOCRIT 35.6 % (36.0-47.0); LYMPH # 2.2 x10^3/uL (1.0-4.8); LYMPH % 45 % (24-48); MEAN CORPUSCULAR HEMOGLOBIN 28 pg (25-35); MEAN CORPUSCULAR HGB CONC 34 g/dL (31-37); MEAN CORPUSCULAR VOLUME 82 fL (79-100); MONO # 0.3 x10^3/uL (0.0-1.1); MONO % 7 % (0-9); NEUT % 43 % (31-73); PLATELET COUNT 238 x10^3/uL (140-400); RED BLOOD COUNT 4.32 x10^6/uL (3.50-5.40); WHITE BLOOD COUNT 4.8 x10^3/uL (4.0-11.0)
[2017-12-05 04:56] LABS: ALBUMIN 2.7 g/dL (3.4-5.0); ALBUMIN/GLOBULIN RATIO 0.9 (1.0-1.7); CALCIUM 8.7 mg/dL (8.5-10.1); CREATININE 0.6 mg/dL (0.6-1.0); GFR 103.8; POTASSIUM 3.6 mmol/L (3.5-5.1); TOTAL BILIRUBIN 0.3 mg/dL (0.2-1.0); TOTAL PROTEIN 5.7 g/dL (6.4-8.2)
[2017-12-05 05:04] LABS: FREE T4 1.05 ng/dL (0.76-1.46); THYROID STIM HORMONE (TSH) 0.599 uIU/mL (0.358-3.74)
[2017-12-05] MEDS: MIDODRINE 2.5 MG TABLET PO SCH ×4 (05:54→21:14)
[2017-12-05] MEDS: INSULIN LISPRO 300 UNITS/3 ML INSULN.PEN. SQ SCH ×6 (08:00→16:43)
[2017-12-05] MEDS ORDERED: IOHEXOL 240 MG/ML 50ML VIAL. PO ONE (08:15)
[2017-12-05] MEDS ORDERED: IOHEXOL 300 MG/ML 100ML VIAL. IV ONE (08:15)
[2017-12-05] MEDS ORDERED: CONTRAST GIVEN. MC PRN (08:30)
[2017-12-05] MEDS: FLUDROCORTISONE 0.1 MG TABLET PO SCH ×3 (10:19→21:02)
--- NOTE | 2017-12-05 10:55 | RAD ---
CT of the abdomen and pelvis with and without contrast, 12/05/2017: HISTORY: Evaluate pancreas and adrenal glands, nausea and dizziness Noncontrast scans were obtained through the abdomen. Scans were then obtained through the entire abdomen and pelvis following IV and oral administration of contrast. No hepatic mass or bile duct dilatation is seen. The gallbladder is unremarkable. No pancreatic abnormality is detected. The spleen is of normal size. The kidneys show no evidence of obstruction or mass. There is minimal bilateral renal cortical scarring. No adrenal abnormality is detected. Moderate aortic calcific plaquing is present without evidence of aneurysm. No abdominal or pelvic adenopathy is seen. The uterus is unremarkable. There is a moderate amount stool throughout the colon. A portion of the appendix is visualized and it is unremarkable. No small bowel abnormality is seen. No free air is evident in the abdomen or pelvis. A trace amount of free fluid is noted in the pelvis. This amount of fluid can be on a physiologic basis. Mild to moderate scattered degenerative changes are present in the spine. IMPRESSION: No acute abdominal or pelvic abnormality is detected. PQRS Compliance Statement: One or more of the following individualized dose reduction techniques were utilized for this examination: 1. Automated exposure control 2. Adjustment of the mA and/or kV according to patient size 3. Use of iterative reconstruction technique Electronically signed by: Shoaib Morales MD (12/05/2017 10:51 AM) [facility]
--- NOTE | 2017-12-05 11:21 | PDOC ---
PROGRESS NOTES Chief Complaint Chief Complaint syncope orthostatic hypotension, now markedly hypertensive weakness, walks with a cane DM2, on insulin 8 years, had been very obese, now normal weight History of Present Illness History of Present Illness urine metanephrines pending TSH normal CV following, plan tilt table she feels better she is concerned she cannot afford to pay for midodrine Vitals Vitals Vital Signs Date Time Temp Pulse Resp B/P (MAP) Pulse Ox O2 Delivery O2 Flow Rate FiO2 12/05/17 10:53 97.5 91 18 180/104 (129) 100 Room Air 97.5 Physical Exam General: Alert, Oriented X3, Cooperative Heart: Regular rate, Normal S1, Normal S2 Lungs: Clear Abdomen: Normal bowel sounds, Soft Extremities: Other (excoriations on the right knee and right pretibial area that she suffered with her fall when she passed out) Skin: No rashes Labs LABS Laboratory Tests Test 12/04/17 11:30 12/04/17 13:23 12/04/17 15:24 12/04/17 17:16 Glucose (Fingerstick) 334 mg/dL (70-99) 314 mg/dL (70-99) 200 mg/dL (70-99) 98 mg/dL (70-99) Test 12/04/17 20:53 12/05/17 04:05 12/05/17 07:19 Glucose (Fingerstick) 285 mg/dL (70-99) 138 mg/dL (70-99) White Blood Count 4.8 x10^3/uL (4.0-11.0) Red Blood Count 4.32 x10^6/uL (3.50-5.40) Hemoglobin 12.0 g/dL (12.0-15.5) Hematocrit 35.6 % (36.0-47.0) Mean Corpuscular Volume 82 fL (79-100) Mean Corpuscular Hemoglobin 28 pg (25-35) Mean Corpuscular Hemoglobin Concent 34 g/dL (31-37) Red Cell Distribution Width 13.0 % (11.5-14.5) Platelet Count 238 x10^3/uL (140-400) Neutrophils (%) (Auto) 43 % (31-73) Lymphocytes (%) (Auto) 45 % (24-48) Monocytes (%) (Auto) 7 % (0-9) Eosinophils (%) (Auto) 5 % (0-3) Basophils (%) (Auto) 1 % (0-3) Neutrophils # (Auto) 2.0 x10^3uL (1.8-7.7) Lymphocytes # (Auto) 2.2 x10^3/uL (1.0-4.8) Monocytes # (Auto) 0.3 x10^3/uL (0.0-1.1) Eosinophils # (Auto) 0.2 x10^3/uL (0.0-0.7) Basophils # (Auto) 0.0 x10^3/uL (0.0-0.2) Sodium Level 140 mmol/L (136-145) Potassium Level 3.6 mmol/L (3.5-5.1) Chloride Level 105 mmol/L (98-107) Carbon Dioxide Level 30 mmol/L (21-32) Anion Gap 5 (6-14) Blood Urea Nitrogen 14 mg/dL (7-20) Creatinine 0.6 mg/dL (0.6-1.0) Estimated GFR (Cockcroft-Gault) 103.8 BUN/Creatinine Ratio 23 (6-20) Glucose Level 209 mg/dL (70-99) Calcium Level 8.7 mg/dL (8.5-10.1) Total Bilirubin 0.3 mg/dL (0.2-1.0) Aspartate Amino Transf (AST/SGOT) 150 U/L (15-37) Alanine Aminotransferase (ALT/SGPT) 141 U/L (14-59) Alkaline Phosphatase 221 U/L (46-116) Total Protein 5.7 g/dL (6.4-8.2) Albumin 2.7 g/dL (3.4-5.0) Albumin/Globulin Ratio 0.9 (1.0-1.7) Thyroid Stimulating Hormone (TSH) 0.599 uIU/mL (0.358-3.74) Free Thyroxine 1.05 ng/dL (0.76-1.46) Assessment and Plan Assessmemt and Plan Problems Medical Problems: (1) Hyperglycemia due to type 1 diabetes mellitus Status: Acute (2) Orthostatic hypotension Status: Acute (3) Visual changes Status: Acute Comment Review of Relevant I have reviewed the following items zurdo (where applicable) has been applied. Labs Laboratory Tests Test 12/03/17 17:05 12/03/17 19:29 12/03/17 20:40 12/03/17 22:38 White Blood Count 7.1 x10^3/uL (4.0-11.0) Red Blood Count 4.58 x10^6/uL (3.50-5.40) Hemoglobin 12.7 g/dL (12.0-15.5) Hematocrit 38.0 % (36.0-47.0) Mean Corpuscular Volume 83 fL (79-100) Mean Corpuscular Hemoglobin 28 pg (25-35) Mean Corpuscular Hemoglobin Concent 33 g/dL (31-37) Red Cell Distribution Width 13.0 % (11.5-14.5) Platelet Count 271 x10^3/uL (140-400) Neutrophils (%) (Auto) 69 % (31-73) Lymphocytes (%) (Auto) 23 % (24-48) Monocytes (%) (Auto) 6 % (0-9) Eosinophils (%) (Auto) 2 % (0-3) Basophils (%) (Auto) 0 % (0-3) Neutrophils # (Auto) 4.9 x10^3uL (1.8-7.7) Lymphocytes # (Auto) 1.6 x10^3/uL (1.0-4.8) Monocytes # (Auto) 0.4 x10^3/uL (0.0-1.1) Eosinophils # (Auto) 0.1 x10^3/uL (0.0-0.7) Basophils # (Auto) 0.0 x10^3/uL (0.0-0.2) Prothrombin Time 13.2 SEC (11.7-14.0) Prothromb Time International Ratio 1.1 (0.8-1.1) Sodium Level 136 mmol/L (136-145) Potassium Level 4.5 mmol/L (3.5-5.1) Chloride Level 98 mmol/L (98-107) Carbon Dioxide Level 31 mmol/L (21-32) Anion Gap 7 (6-14) Blood Urea Nitrogen 29 mg/dL (7-20) Creatinine 1.0 mg/dL (0.6-1.0) Estimated GFR (Cockcroft-Gault) 57.6 BUN/Creatinine Ratio 29 (6-20) Glucose Level 489 mg/dL (70-99) Calcium Level 9.6 mg/dL (8.5-10.1) Magnesium Level 1.8 mg/dL (1.8-2.4) Total Bilirubin 0.3 mg/dL (0.2-1.0) Aspartate Amino Transf (AST/SGOT) 80 U/L (15-37) Alanine Aminotransferase (ALT/SGPT) 53 U/L (14-59) Alkaline Phosphatase 130 U/L (46-116) Creatine Kinase 85 U/L (26-192) Creatine Kinase MB (Mass) 2.2 ng/mL (0.0-3.6) Creatine Kinase MB Relative Index 2.6 % (0-4) Troponin I Quantitative < 0.017 ng/mL (0.000-0.055) TQ-Oeu-V-Type Natriuretic Peptide 218 pg/mL (0-124) Total Protein 7.1 g/dL (6.4-8.2) Albumin 3.2 g/dL (3.4-5.0) Albumin/Globulin Ratio 0.8 (1.0-1.7) Acetone Level Neg (NEG) Glucose (Fingerstick) 337 mg/dL (70-99) 101 mg/dL (70-99) Urine Collection Type U cath Urine Color Yellow Urine Clarity Cloudy Urine pH 7.0 Urine Specific Thurmond >=1.030 Urine Protein 30 mg/dL (NEG-TRACE) Urine Glucose (UA) >=1000 mg/dL (NEG) Urine Ketones (Stick) Negative mg/dL (NEG) Urine Blood Trace (NEG) Urine Nitrite Negative (NEG) Urine Bilirubin Negative (NEG) Urine Urobilinogen Dipstick 1.0 mg/dL (0.2 mg/dL) Urine Leukocyte Esterase Small (NEG) Urine RBC Occ /HPF (0-2) Urine WBC 20-40 /HPF (0-4) Urine Squamous Epithelial Cells Mod /LPF Urine Bacteria Many /HPF (0-FEW) Urine Mucus Slight /LPF Test 12/04/17 04:10 12/04/17 07:16 12/04/17 11:30 12/04/17 13:23 White Blood Count 4.9 x10^3/uL (4.0-11.0) Red Blood Count 4.24 x10^6/uL (3.50-5.40) Hemoglobin 12.0 g/dL (12.0-15.5) Hematocrit 34.9 % (36.0-47.0) Mean Corpuscular Volume 82 fL (79-100) Mean Corpuscular Hemoglobin 28 pg (25-35) Mean Corpuscular Hemoglobin Concent 34 g/dL (31-37) Red Cell Distribution Width 13.5 % (11.5-14.5) Platelet Count 242 x10^3/uL (140-400) Neutrophils (%) (Auto) 51 % (31-73) Lymphocytes (%) (Auto) 37 % (24-48) Monocytes (%) (Auto) 8 % (0-9) Eosinophils (%) (Auto) 4 % (0-3) Basophils (%) (Auto) 1 % (0-3) Neutrophils # (Auto) 2.5 x10^3uL (1.8-7.7) Lymphocytes # (Auto) 1.8 x10^3/uL (1.0-4.8) Monocytes # (Auto) 0.4 x10^3/uL (0.0-1.1) Eosinophils # (Auto) 0.2 x10^3/uL (0.0-0.7) Basophils # (Auto) 0.0 x10^3/uL (0.0-0.2) Sodium Level 140 mmol/L (136-145) Potassium Level 3.6 mmol/L (3.5-5.1) Chloride Level 104 mmol/L (98-107) Carbon Dioxide Level 31 mmol/L (21-32) Anion Gap 5 (6-14) Blood Urea Nitrogen 24 mg/dL (7-20) Creatinine 0.7 mg/dL (0.6-1.0) Estimated GFR (Cockcroft-Gault) 86.9 Glucose Level 293 mg/dL (70-99) Calcium Level 8.5 mg/dL (8.5-10.1) Glucose (Fingerstick) 314 mg/dL (70-99) 334 mg/dL (70-99) 314 mg/dL (70-99) Test 12/04/17 15:24 12/04/17 17:16 12/04/17 20:53 12/05/17 04:05 Glucose (Fingerstick) 200 mg/dL (70-99) 98 mg/dL (70-99) 285 mg/dL (70-99) White Blood Count 4.8 x10^3/uL (4.0-11.0) Red Blood Count 4.32 x10^6/uL (3.50-5.40) Hemoglobin 12.0 g/dL (12.0-15.5) Hematocrit 35.6 % (36.0-47.0) Mean Corpuscular Volume 82 fL (79-100) Mean Corpuscular Hemoglobin 28 pg (25-35) Mean Corpuscular Hemoglobin Concent 34 g/dL (31-37) Red Cell Distribution Width 13.0 % (11.5-14.5) Platelet Count 238 x10^3/uL (140-400) Neutrophils (%) (Auto) 43 % (31-73) Lymphocytes (%) (Auto) 45 % (24-48) Monocytes (%) (Auto) 7 % (0-9) Eosinophils (%) (Auto) 5 % (0-3) Basophils (%) (Auto) 1 % (0-3) Neutrophils # (Auto) 2.0 x10^3uL (1.8-7.7) Lymphocytes # (Auto) 2.2 x10^3/uL (1.0-4.8) Monocytes # (Auto) 0.3 x10^3/uL (0.0-1.1) Eosinophils # (Auto) 0.2 x10^3/uL (0.0-0.7) Basophils # (Auto) 0.0 x10^3/uL (0.0-0.2) Sodium Level 140 mmol/L (136-145) Potassium Level 3.6 mmol/L (3.5-5.1) Chloride Level 105 mmol/L (98-107) Carbon Dioxide Level 30 mmol/L (21-32) Anion Gap 5 (6-14) Blood Urea Nitrogen 14 mg/dL (7-20) Creatinine 0.6 mg/dL (0.6-1.0) Estimated GFR (Cockcroft-Gault) 103.8 BUN/Creatinine Ratio 23 (6-20) Glucose Level 209 mg/dL (70-99) Calcium Level 8.7 mg/dL (8.5-10.1) Total Bilirubin 0.3 mg/dL (0.2-1.0) Aspartate Amino Transf (AST/SGOT) 150 U/L (15-37) Alanine Aminotransferase (ALT/SGPT) 141 U/L (14-59) Alkaline Phosphatase 221 U/L (46-116) Total Protein 5.7 g/dL (6.4-8.2) Albumin 2.7 g/dL (3.4-5.0) Albumin/Globulin Ratio 0.9 (1.0-1.7) Thyroid Stimulating Hormone (TSH) 0.599 uIU/mL (0.358-3.74) Free Thyroxine 1.05 ng/dL (0.76-1.46) Test 12/05/17 07:19 Glucose (Fingerstick) 138 mg/dL (70-99) Laboratory Tests Test 12/04/17 11:30 12/04/17 13:23 12/04/17 15:24 12/04/17 17:16 Glucose (Fingerstick) 334 mg/dL (70-99) 314 mg/dL (70-99) 200 mg/dL (70-99) 98 mg/dL (70-99) Test 12/04/17 20:53 12/05/17 04:05 12/05/17 07:19 Glucose (Fingerstick) 285 mg/dL (70-99) 138 mg/dL (70-99) White Blood Count 4.8 x10^3/uL (4.0-11.0) Red Blood Count 4.32 x10^6/uL (3.50-5.40) Hemoglobin 12.0 g/dL (12.0-15.5) Hematocrit 35.6 % (36.0-47.0) Mean Corpuscular Volume 82 fL (79-100) Mean Corpuscular Hemoglobin 28 pg (25-35) Mean Corpuscular Hemoglobin Concent 34 g/dL (31-37) Red Cell Distribution Width 13.0 % (11.5-14.5) Platelet Count 238 x10^3/uL (140-400) Neutrophils (%) (Auto) 43 % (31-73) Lymphocytes (%) (Auto) 45 % (24-48) Monocytes (%) (Auto) 7 % (0-9) Eosinophils (%) (Auto) 5 % (0-3) Basophils (%) (Auto) 1 % (0-3) Neutrophils # (Auto) 2.0 x10^3uL (1.8-7.7) Lymphocytes # (Auto) 2.2 x10^3/uL (1.0-4.8) Monocytes # (Auto) 0.3 x10^3/uL (0.0-1.1) Eosinophils # (Auto) 0.2 x10^3/uL (0.0-0.7) Basophils # (Auto) 0.0 x10^3/uL (0.0-0.2) Sodium Level 140 mmol/L (136-145) Potassium Level 3.6 mmol/L (3.5-5.1) Chloride Level 105 mmol/L (98-107) Carbon Dioxide Level 30 mmol/L (21-32) Anion Gap 5 (6-14) Blood Urea Nitrogen 14 mg/dL (7-20) Creatinine 0.6 mg/dL (0.6-1.0) Estimated GFR (Cockcroft-Gault) 103.8 BUN/Creatinine Ratio 23 (6-20) Glucose Level 209 mg/dL (70-99) Calcium Level 8.7 mg/dL (8.5-10.1) Total Bilirubin 0.3 mg/dL (0.2-1.0) Aspartate Amino Transf (AST/SGOT) 150 U/L (15-37) Alanine Aminotransferase (ALT/SGPT) 141 U/L (14-59) Alkaline Phosphatase 221 U/L (46-116) Total Protein 5.7 g/dL (6.4-8.2) Albumin 2.7 g/dL (3.4-5.0) Albumin/Globulin Ratio 0.9 (1.0-1.7) Thyroid Stimulating Hormone (TSH) 0.599 uIU/mL (0.358-3.74) Free Thyroxine 1.05 ng/dL (0.76-1.46) Medications Current Medications Sodium Chloride 1,000 ml @ 1,000 mls/hr Q1H IV Last administered on 12/03/17at 16:43; Start 12/03/17 at 16:43; Stop 12/03/17 at 17:42; Status DC Lorazepam (Ativan) 1 mg 1X ONCE IV Last administered on 12/03/17at 19:30; Start 12/03/17 at 16:45; Stop 12/03/17 at 16:49; Status DC Insulin Human Regular (HumuLIN R VIAL) 10 unit 1X ONCE IV Last administered on 12/03/17at 19:32; Start 12/03/17 at 19:30; Stop 12/03/17 at 19:31; Status DC Ondansetron HCl (Zofran) 4 mg PRN Q8HRS PRN IV NAUSEA/VOMITING; Start 12/03/17 at 20:45; Stop 12/04/17 at 20:44; Status DC Sodium Chloride 1,000 ml @ 125 mls/hr Q8H IV Last administered on 12/04/17at 12 :19; Start 12/03/17 at 20:35; Stop 12/04/17 at 20:34; Status DC Amitriptyline HCl (Elavil) 50 mg QHS PO Last administered on 12/04/17at 20:59; Start 12/04/17 at 21:00 Fludrocortisone Acetate (Florinef) 0.1 mg DAILY PO Last administered on at 10:19; Start 12/04/17 at 09:00 Insulin Human Lispro (HumaLOG) 10 units TIDWMEALS SQ Last administered on at 12:24; Start 12/04/17 at 08:00; Stop 12/04/17 at 13:32; Status DC Insulin Glargine (Lantus) 30 units QHS SQ Last administered on 12/04/17at 21:05 ; Start 12/04/17 at 21:00 Atorvastatin Calcium (Lipitor) 5 mg QHS PO ; Start 12/04/17 at 21:00 Insulin Human Lispro (HumaLOG) 14 units TIDWMEALS SQ Last administered on at 15:30; Start 12/04/17 at 14:00 Insulin Human Lispro (HumaLOG) 0-9 UNITS TIDWMEALS SQ ; Start 12/04/17 at 14:00 Dextrose (Dextrose 50%-Water Syringe) 12.5 gm PRN Q15MIN PRN IV SEE COMMENTS; Start 12/04/17 at 13:45 Midodrine (Proamatine) 2.5 mg 1X ONCE PO Last administered on 12/04/17at 15:15 ; Start 12/04/17 at 14:30; Stop 12/04/17 at 14:31; Status DC Midodrine (Proamatine) 2.5 mg [id number] PO ; Start 12/05/17 at 07:00 Iohexol (Omnipaque 300 Mg/ml) 75 ml 1X ONCE IV Last administered on 12/05/17at 09:52; Start 12/05/17 at 08:15; Stop 12/05/17 at 08:16; Status DC Iohexol (Omnipaque 240 Mg/ml) 50 ml 1X ONCE PO Last administered on 12/05/17at 09:52; Start 12/05/17 at 08:15; Stop 12/05/17 at 08:16; Status DC Info (CONTRAST GIVEN -- Rx MONITORING) 1 each PRN DAILY PRN MC SEE COMMENTS; Start 12/05/17 at 08:30; Stop 12/07/17 at 08:29 Active Scripts Active Fludrocortisone Acetate 0.1 Mg Tablet 0.1 Mg PO DAILY Levemir Flextouch (Insulin Detemir) 300 Units/3 Ml Insuln.pen 30 Units SQ QHS Novolog Flexpen (Insulin Aspart) 300 Units/3 Ml Insuln.pen 10 Units SQ TIDAC Reported Amitriptyline Hcl 50 Mg Tablet 1 Tab PO QHS Lovastatin 20 Mg Tablet 1 Tab PO DAILY Vitals/I & O Vital Sign - Last 24 Hours 12/04/17 12/04/17 12/04/17 12/04/17 15:00 15:15 19:49 20:06 Temp 98.1 98.8 98.1 98.8 Pulse 97 76 96 Resp B/P (MAP) 155/97 (116) 155/97 156/92 (113) Pulse Ox 95 97 O2 Delivery Room Air Room Air Room Air 12/04/17 12/05/17 12/05/17 12/05/17 23:30 03:59 04:12 07:00 Temp 97.5 97.5 97.7 97.5 97.5 97.7 Pulse 94 89 87 Resp 18 B/P (MAP) 181/103 (129) 159/97 (117) 157/98 (117) Pulse Ox 93 97 99 O2 Delivery Room Air Room Air Room Air Room Air 12/05/17 12/05/17 12/05/17 12/05/17 07:05 07:10 08:00 10:53 Temp 97.5 97.5 Pulse 89 91 91 Resp 18 B/P (MAP) 138/87 (104) 103/63 (76) 180/104 (129) Pulse Ox 97 98 100 O2 Delivery Room Air Room Air Room Air Room Air Intake and Output 12/04/17 12/04/17 12/05/17 15:00 23:00 07:00 Intake Total 2050 ml 1570 ml 0 ml Output Total 800 ml 800 ml 1300 ml Balance 1250 ml 770 ml -1300 ml PAT MCCOY MD Dec 05, 2017 11:21
--- NOTE | 2017-12-05 13:39 | PDOC ---
PROGRESS NOTES Assessment Problems Medical Problems: (1) Hyperglycemia due to type 1 diabetes mellitus Status: Acute (2) Orthostatic hypotension Status: Acute (3) Visual changes Status: Acute Dizziness, due to orthostatic hypotension, last time I saw her I thought there could be a vestibular component but none is apparent either this time or last time on exam. Also note that she had a negative brain MRI last time. She also had extensive blood work for other causes of neuropathy. I believe that the orthostasis is due to diabetic autonomic neuropathy. I find no evidence of multiple system atrophy on exam. She has failed on Florinef. Plan Patient refuses to take ProAmatine because of cost, she is willing to try a higher dose of fludrocortisone, I have increased the dose to twice a day No need to repeat further neurological workup. She may need to stay in halfway, but does not have insurance to cover this. Note cardiology plans for tilt testing Subjective Feels stronger today, not as dizzy. Objective Vital Signs Date Time Temp Pulse Resp B/P (MAP) Pulse Ox O2 Delivery O2 Flow Rate FiO2 12/05/17 10:53 97.5 91 18 180/104 (129) 100 Room Air 97.5 Intake and Output 12/05/17 07:00 Intake Total 3620 ml Output Total 2900 ml Balance 720 ml Intake Oral 1670 ml IV Total 1950 ml Output Urine Total 2900 ml # Voids 4 PHYSICAL EXAM Alert. Oriented to time, place and person. PERRL. EOMI. CN: no focal findings. Muscle tone: normal. Muscle strength: 5/5 DTR: 1+ Plantar reflex: Flexor Gait: Ambulates well with cane Sensory exam: Stocking loss. No cerebellar signs elicited. Review of Relevant I have reviewed the following items zurdo (where applicable) has been applied. Labs Laboratory Tests Test 12/03/17 17:05 12/03/17 19:29 12/03/17 20:40 12/03/17 22:38 White Blood Count 7.1 x10^3/uL (4.0-11.0) Red Blood Count 4.58 x10^6/uL (3.50-5.40) Hemoglobin 12.7 g/dL (12.0-15.5) Hematocrit 38.0 % (36.0-47.0) Mean Corpuscular Volume 83 fL (79-100) Mean Corpuscular Hemoglobin 28 pg (25-35) Mean Corpuscular Hemoglobin Concent 33 g/dL (31-37) Red Cell Distribution Width 13.0 % (11.5-14.5) Platelet Count 271 x10^3/uL (140-400) Neutrophils (%) (Auto) 69 % (31-73) Lymphocytes (%) (Auto) 23 % (24-48) Monocytes (%) (Auto) 6 % (0-9) Eosinophils (%) (Auto) 2 % (0-3) Basophils (%) (Auto) 0 % (0-3) Neutrophils # (Auto) 4.9 x10^3uL (1.8-7.7) Lymphocytes # (Auto) 1.6 x10^3/uL (1.0-4.8) Monocytes # (Auto) 0.4 x10^3/uL (0.0-1.1) Eosinophils # (Auto) 0.1 x10^3/uL (0.0-0.7) Basophils # (Auto) 0.0 x10^3/uL (0.0-0.2) Prothrombin Time 13.2 SEC (11.7-14.0) Prothromb Time International Ratio 1.1 (0.8-1.1) Sodium Level 136 mmol/L (136-145) Potassium Level 4.5 mmol/L (3.5-5.1) Chloride Level 98 mmol/L (98-107) Carbon Dioxide Level 31 mmol/L (21-32) Anion Gap 7 (6-14) Blood Urea Nitrogen 29 mg/dL (7-20) Creatinine 1.0 mg/dL (0.6-1.0) Estimated GFR (Cockcroft-Gault) 57.6 BUN/Creatinine Ratio 29 (6-20) Glucose Level 489 mg/dL (70-99) Calcium Level 9.6 mg/dL (8.5-10.1) Magnesium Level 1.8 mg/dL (1.8-2.4) Total Bilirubin 0.3 mg/dL (0.2-1.0) Aspartate Amino Transf (AST/SGOT) 80 U/L (15-37) Alanine Aminotransferase (ALT/SGPT) 53 U/L (14-59) Alkaline Phosphatase 130 U/L (46-116) Creatine Kinase 85 U/L (26-192) Creatine Kinase MB (Mass) 2.2 ng/mL (0.0-3.6) Creatine Kinase MB Relative Index 2.6 % (0-4) Troponin I Quantitative < 0.017 ng/mL (0.000-0.055) AP-Hso-R-Type Natriuretic Peptide 218 pg/mL (0-124) Total Protein 7.1 g/dL (6.4-8.2) Albumin 3.2 g/dL (3.4-5.0) Albumin/Globulin Ratio 0.8 (1.0-1.7) Acetone Level Neg (NEG) Glucose (Fingerstick) 337 mg/dL (70-99) 101 mg/dL (70-99) Urine Collection Type U cath Urine Color Yellow Urine Clarity Cloudy Urine pH 7.0 Urine Specific [place] >=1.030 Urine Protein 30 mg/dL (NEG-TRACE) Urine Glucose (UA) >=1000 mg/dL (NEG) Urine Ketones (Stick) Negative mg/dL (NEG) Urine Blood Trace (NEG) Urine Nitrite Negative (NEG) Urine Bilirubin Negative (NEG) Urine Urobilinogen Dipstick 1.0 mg/dL (0.2 mg/dL) Urine Leukocyte Esterase Small (NEG) Urine RBC Occ /HPF (0-2) Urine WBC 20-40 /HPF (0-4) Urine Squamous Epithelial Cells Mod /LPF Urine Bacteria Many /HPF (0-FEW) Urine Mucus Slight /LPF Test 12/04/17 04:10 12/04/17 07:16 12/04/17 11:30 12/04/17 13:23 White Blood Count 4.9 x10^3/uL (4.0-11.0) Red Blood Count 4.24 x10^6/uL (3.50-5.40) Hemoglobin 12.0 g/dL (12.0-15.5) Hematocrit 34.9 % (36.0-47.0) Mean Corpuscular Volume 82 fL (79-100) Mean Corpuscular Hemoglobin 28 pg (25-35) Mean Corpuscular Hemoglobin Concent 34 g/dL (31-37) Red Cell Distribution Width 13.5 % (11.5-14.5) Platelet Count 242 x10^3/uL (140-400) Neutrophils (%) (Auto) 51 % (31-73) Lymphocytes (%) (Auto) 37 % (24-48) Monocytes (%) (Auto) 8 % (0-9) Eosinophils (%) (Auto) 4 % (0-3) Basophils (%) (Auto) 1 % (0-3) Neutrophils # (Auto) 2.5 x10^3uL (1.8-7.7) Lymphocytes # (Auto) 1.8 x10^3/uL (1.0-4.8) Monocytes # (Auto) 0.4 x10^3/uL (0.0-1.1) Eosinophils # (Auto) 0.2 x10^3/uL (0.0-0.7) Basophils # (Auto) 0.0 x10^3/uL (0.0-0.2) Sodium Level 140 mmol/L (136-145) Potassium Level 3.6 mmol/L (3.5-5.1) Chloride Level 104 mmol/L (98-107) Carbon Dioxide Level 31 mmol/L (21-32) Anion Gap 5 (6-14) Blood Urea Nitrogen 24 mg/dL (7-20) Creatinine 0.7 mg/dL (0.6-1.0) Estimated GFR (Cockcroft-Gault) 86.9 Glucose Level 293 mg/dL (70-99) Calcium Level 8.5 mg/dL (8.5-10.1) Glucose (Fingerstick) 314 mg/dL (70-99) 334 mg/dL (70-99) 314 mg/dL (70-99) Test 12/04/17 15:24 12/04/17 17:16 12/04/17 20:53 12/05/17 04:05 Glucose (Fingerstick) 200 mg/dL (70-99) 98 mg/dL (70-99) 285 mg/dL (70-99) White Blood Count 4.8 x10^3/uL (4.0-11.0) Red Blood Count 4.32 x10^6/uL (3.50-5.40) Hemoglobin 12.0 g/dL (12.0-15.5) Hematocrit 35.6 % (36.0-47.0) Mean Corpuscular Volume 82 fL (79-100) Mean Corpuscular Hemoglobin 28 pg (25-35) Mean Corpuscular Hemoglobin Concent 34 g/dL (31-37) Red Cell Distribution Width 13.0 % (11.5-14.5) Platelet Count 238 x10^3/uL (140-400) Neutrophils (%) (Auto) 43 % (31-73) Lymphocytes (%) (Auto) 45 % (24-48) Monocytes (%) (Auto) 7 % (0-9) Eosinophils (%) (Auto) 5 % (0-3) Basophils (%) (Auto) 1 % (0-3) Neutrophils # (Auto) 2.0 x10^3uL (1.8-7.7) Lymphocytes # (Auto) 2.2 x10^3/uL (1.0-4.8) Monocytes # (Auto) 0.3 x10^3/uL (0.0-1.1) Eosinophils # (Auto) 0.2 x10^3/uL (0.0-0.7) Basophils # (Auto) 0.0 x10^3/uL (0.0-0.2) Sodium Level 140 mmol/L (136-145) Potassium Level 3.6 mmol/L (3.5-5.1) Chloride Level 105 mmol/L (98-107) Carbon Dioxide Level 30 mmol/L (21-32) Anion Gap 5 (6-14) Blood Urea Nitrogen 14 mg/dL (7-20) Creatinine 0.6 mg/dL (0.6-1.0) Estimated GFR (Cockcroft-Gault) 103.8 BUN/Creatinine Ratio 23 (6-20) Glucose Level 209 mg/dL (70-99) Calcium Level 8.7 mg/dL (8.5-10.1) Total Bilirubin 0.3 mg/dL (0.2-1.0) Aspartate Amino Transf (AST/SGOT) 150 U/L (15-37) Alanine Aminotransferase (ALT/SGPT) 141 U/L (14-59) Alkaline Phosphatase 221 U/L (46-116) Total Protein 5.7 g/dL (6.4-8.2) Albumin 2.7 g/dL (3.4-5.0) Albumin/Globulin Ratio 0.9 (1.0-1.7) Thyroid Stimulating Hormone (TSH) 0.599 uIU/mL (0.358-3.74) Free Thyroxine 1.05 ng/dL (0.76-1.46) Test 12/05/17 07:19 12/05/17 11:16 Glucose (Fingerstick) 138 mg/dL (70-99) 141 mg/dL (70-99) Laboratory Tests Test 12/04/17 15:24 12/04/17 17:16 12/04/17 20:53 12/05/17 04:05 Glucose (Fingerstick) 200 mg/dL (70-99) 98 mg/dL (70-99) 285 mg/dL (70-99) White Blood Count 4.8 x10^3/uL (4.0-11.0) Red Blood Count 4.32 x10^6/uL (3.50-5.40) Hemoglobin 12.0 g/dL (12.0-15.5) Hematocrit 35.6 % (36.0-47.0) Mean Corpuscular Volume 82 fL (79-100) Mean Corpuscular Hemoglobin 28 pg (25-35) Mean Corpuscular Hemoglobin Concent 34 g/dL (31-37) Red Cell Distribution Width 13.0 % (11.5-14.5) Platelet Count 238 x10^3/uL (140-400) Neutrophils (%) (Auto) 43 % (31-73) Lymphocytes (%) (Auto) 45 % (24-48) Monocytes (%) (Auto) 7 % (0-9) Eosinophils (%) (Auto) 5 % (0-3) Basophils (%) (Auto) 1 % (0-3) Neutrophils # (Auto) 2.0 x10^3uL (1.8-7.7) Lymphocytes # (Auto) 2.2 x10^3/uL (1.0-4.8) Monocytes # (Auto) 0.3 x10^3/uL (0.0-1.1) Eosinophils # (Auto) 0.2 x10^3/uL (0.0-0.7) Basophils # (Auto) 0.0 x10^3/uL (0.0-0.2) Sodium Level 140 mmol/L (136-145) Potassium Level 3.6 mmol/L (3.5-5.1) Chloride Level 105 mmol/L (98-107) Carbon Dioxide Level 30 mmol/L (21-32) Anion Gap 5 (6-14) Blood Urea Nitrogen 14 mg/dL (7-20) Creatinine 0.6 mg/dL (0.6-1.0) Estimated GFR (Cockcroft-Gault) 103.8 BUN/Creatinine Ratio 23 (6-20) Glucose Level 209 mg/dL (70-99) Calcium Level 8.7 mg/dL (8.5-10.1) Total Bilirubin 0.3 mg/dL (0.2-1.0) Aspartate Amino Transf (AST/SGOT) 150 U/L (15-37) Alanine Aminotransferase (ALT/SGPT) 141 U/L (14-59) Alkaline Phosphatase 221 U/L (46-116) Total Protein 5.7 g/dL (6.4-8.2) Albumin 2.7 g/dL (3.4-5.0) Albumin/Globulin Ratio 0.9 (1.0-1.7) Thyroid Stimulating Hormone (TSH) 0.599 uIU/mL (0.358-3.74) Free Thyroxine 1.05 ng/dL (0.76-1.46) Test 12/05/17 07:19 12/05/17 11:16 Glucose (Fingerstick) 138 mg/dL (70-99) 141 mg/dL (70-99) Medications Current Medications Sodium Chloride 1,000 ml @ 1,000 mls/hr Q1H IV Last administered on 12/03/17at 16:43; Start 12/03/17 at 16:43; Stop 12/03/17 at 17:42; Status DC Lorazepam (Ativan) 1 mg 1X ONCE IV Last administered on 12/03/17at 19:30; Start 12/03/17 at 16:45; Stop 12/03/17 at 16:49; Status DC Insulin Human Regular (HumuLIN R VIAL) 10 unit 1X ONCE IV Last administered on 12/03/17at 19:32; Start 12/03/17 at 19:30; Stop 12/03/17 at 19:31; Status DC Ondansetron HCl (Zofran) 4 mg PRN Q8HRS PRN IV NAUSEA/VOMITING; Start 12/03/17 at 20:45; Stop 12/04/17 at 20:44; Status DC Sodium Chloride 1,000 ml @ 125 mls/hr Q8H IV Last administered on 12/04/17at 12 :19; Start 12/03/17 at 20:35; Stop 12/04/17 at 20:34; Status DC Amitriptyline HCl (Elavil) 50 mg QHS PO Last administered on 12/04/17at 20:59; Start 12/04/17 at 21:00 Fludrocortisone Acetate (Florinef) 0.1 mg DAILY PO Last administered on at 10:19; Start 12/04/17 at 09:00 Insulin Human Lispro (HumaLOG) 10 units TIDWMEALS SQ Last administered on at 12:24; Start 12/04/17 at 08:00; Stop 12/04/17 at 13:32; Status DC Insulin Glargine (Lantus) 30 units QHS SQ Last administered on 12/04/17at 21:05 ; Start 12/04/17 at 21:00 Atorvastatin Calcium (Lipitor) 5 mg QHS PO ; Start 12/04/17 at 21:00 Insulin Human Lispro (HumaLOG) 14 units TIDWMEALS SQ Last administered on at 12:09; Start 12/04/17 at 14:00 Insulin Human Lispro (HumaLOG) 0-9 UNITS TIDWMEALS SQ ; Start 12/04/17 at 14:00 Dextrose (Dextrose 50%-Water Syringe) 12.5 gm PRN Q15MIN PRN IV SEE COMMENTS; Start 12/04/17 at 13:45 Midodrine (Proamatine) 2.5 mg 1X ONCE PO Last administered on 12/04/17at 15:15 ; Start 12/04/17 at 14:30; Stop 12/04/17 at 14:31; Status DC Midodrine (Proamatine) 2.5 mg [id number] PO ; Start 12/05/17 at 07:00 Iohexol (Omnipaque 300 Mg/ml) 75 ml 1X ONCE IV Last administered on 12/05/17at 09:52; Start 12/05/17 at 08:15; Stop 12/05/17 at 08:16; Status DC Iohexol (Omnipaque 240 Mg/ml) 50 ml 1X ONCE PO Last administered on 12/05/17at 09:52; Start 12/05/17 at 08:15; Stop 12/05/17 at 08:16; Status DC Info (CONTRAST GIVEN -- Rx MONITORING) 1 each PRN DAILY PRN MC SEE COMMENTS; Start 12/05/17 at 08:30; Stop 12/07/17 at 08:29 Active Scripts Active Fludrocortisone Acetate 0.1 Mg Tablet 0.1 Mg PO DAILY Levemir Flextouch (Insulin Detemir) 300 Units/3 Ml Insuln.pen 30 Units SQ QHS Novolog Flexpen (Insulin Aspart) 300 Units/3 Ml Insuln.pen 10 Units SQ TIDAC Reported Amitriptyline Hcl 50 Mg Tablet 1 Tab PO QHS Lovastatin 20 Mg Tablet 1 Tab PO DAILY Vitals/I & O Vital Sign - Last 24 Hours 12/04/17 12/04/17 12/04/17 12/04/17 15:00 15:15 19:49 20:06 Temp 98.1 98.8 98.1 98.8 Pulse 97 76 96 Resp 20 19 B/P (MAP) 155/97 (116) 155/97 156/92 (113) Pulse Ox 95 97 O2 Delivery Room Air Room Air Room Air 12/04/17 12/05/17 12/05/17 12/05/17 23:30 03:59 04:12 07:00 Temp 97.5 97.5 97.7 97.5 97.5 97.7 Pulse 94 89 87 Resp 19 18 18 B/P (MAP) 181/103 (129) 159/97 (117) 157/98 (117) Pulse Ox 93 97 99 O2 Delivery Room Air Room Air Room Air Room Air 12/05/17 12/05/17 12/05/17 12/05/17 07:05 07:10 08:00 10:53 Temp 97.5 97.5 Pulse 89 91 91 Resp 18 18 18 B/P (MAP) 138/87 (104) 103/63 (76) 180/104 (129) Pulse Ox 97 98 100 O2 Delivery Room Air Room Air Room Air Room Air Intake and Output 12/04/17 12/04/17 12/05/17 15:00 23:00 07:00 Intake Total 2050 ml 1570 ml 0 ml Output Total 800 ml 800 ml 1300 ml Balance 1250 ml 770 ml -1300 ml APPELBAUM,LANA S MD Dec 05, 2017 13:39
--- NOTE | 2017-12-05 15:18 | PDOC ---
PROGRESS NOTES Subjective Subjective Feels a little better. Continues in sinus rhythm. No significant dysrhythmia so far. CT of the abdomen and pelvis did not show any significant abnormality of pancreas or adrenals. Objective Objective Vital Signs Date Time Temp Pulse Resp B/P (MAP) Pulse Ox O2 Delivery O2 Flow Rate FiO2 12/05/17 14:50 97.6 90 18 168/92 (117) 100 Room Air 97.6 Intake and Output 12/05/17 07:00 Intake Total 3620 ml Output Total 2900 ml Balance 720 ml Intake Oral 1670 ml IV Total 1950 ml Output Urine Total 2900 ml # Voids 4 Physical Exam Physical Exam No significant changes in cardiac exam Assessment Assessment Patient is compensated cardiac-goodman. We will do a tilt table test in the morning. Comment Review of Relevant I have reviewed the following items zurdo (where applicable) has been applied. Labs Laboratory Tests Test 12/03/17 17:05 12/03/17 19:29 12/03/17 20:40 12/03/17 22:38 White Blood Count 7.1 x10^3/uL (4.0-11.0) Red Blood Count 4.58 x10^6/uL (3.50-5.40) Hemoglobin 12.7 g/dL (12.0-15.5) Hematocrit 38.0 % (36.0-47.0) Mean Corpuscular Volume 83 fL (79-100) Mean Corpuscular Hemoglobin 28 pg (25-35) Mean Corpuscular Hemoglobin Concent 33 g/dL (31-37) Red Cell Distribution Width 13.0 % (11.5-14.5) Platelet Count 271 x10^3/uL (140-400) Neutrophils (%) (Auto) 69 % (31-73) Lymphocytes (%) (Auto) 23 % (24-48) Monocytes (%) (Auto) 6 % (0-9) Eosinophils (%) (Auto) 2 % (0-3) Basophils (%) (Auto) 0 % (0-3) Neutrophils # (Auto) 4.9 x10^3uL (1.8-7.7) Lymphocytes # (Auto) 1.6 x10^3/uL (1.0-4.8) Monocytes # (Auto) 0.4 x10^3/uL (0.0-1.1) Eosinophils # (Auto) 0.1 x10^3/uL (0.0-0.7) Basophils # (Auto) 0.0 x10^3/uL (0.0-0.2) Prothrombin Time 13.2 SEC (11.7-14.0) Prothromb Time International Ratio 1.1 (0.8-1.1) Sodium Level 136 mmol/L (136-145) Potassium Level 4.5 mmol/L (3.5-5.1) Chloride Level 98 mmol/L (98-107) Carbon Dioxide Level 31 mmol/L (21-32) Anion Gap 7 (6-14) Blood Urea Nitrogen 29 mg/dL (7-20) Creatinine 1.0 mg/dL (0.6-1.0) Estimated GFR (Cockcroft-Gault) 57.6 BUN/Creatinine Ratio 29 (6-20) Glucose Level 489 mg/dL (70-99) Calcium Level 9.6 mg/dL (8.5-10.1) Magnesium Level 1.8 mg/dL (1.8-2.4) Total Bilirubin 0.3 mg/dL (0.2-1.0) Aspartate Amino Transf (AST/SGOT) 80 U/L (15-37) Alanine Aminotransferase (ALT/SGPT) 53 U/L (14-59) Alkaline Phosphatase 130 U/L (46-116) Creatine Kinase 85 U/L (26-192) Creatine Kinase MB (Mass) 2.2 ng/mL (0.0-3.6) Creatine Kinase MB Relative Index 2.6 % (0-4) Troponin I Quantitative < 0.017 ng/mL (0.000-0.055) CD-Pke-E-Type Natriuretic Peptide 218 pg/mL (0-124) Total Protein 7.1 g/dL (6.4-8.2) Albumin 3.2 g/dL (3.4-5.0) Albumin/Globulin Ratio 0.8 (1.0-1.7) Acetone Level Neg (NEG) Glucose (Fingerstick) 337 mg/dL (70-99) 101 mg/dL (70-99) Urine Collection Type U cath Urine Color Yellow Urine Clarity Cloudy Urine pH 7.0 Urine Specific [place] >=1.030 Urine Protein 30 mg/dL (NEG-TRACE) Urine Glucose (UA) >=1000 mg/dL (NEG) Urine Ketones (Stick) Negative mg/dL (NEG) Urine Blood Trace (NEG) Urine Nitrite Negative (NEG) Urine Bilirubin Negative (NEG) Urine Urobilinogen Dipstick 1.0 mg/dL (0.2 mg/dL) Urine Leukocyte Esterase Small (NEG) Urine RBC Occ /HPF (0-2) Urine WBC 20-40 /HPF (0-4) Urine Squamous Epithelial Cells Mod /LPF Urine Bacteria Many /HPF (0-FEW) Urine Mucus Slight /LPF Test 12/04/17 04:10 12/04/17 07:16 12/04/17 11:30 12/04/17 13:23 White Blood Count 4.9 x10^3/uL (4.0-11.0) Red Blood Count 4.24 x10^6/uL (3.50-5.40) Hemoglobin 12.0 g/dL (12.0-15.5) Hematocrit 34.9 % (36.0-47.0) Mean Corpuscular Volume 82 fL (79-100) Mean Corpuscular Hemoglobin 28 pg (25-35) Mean Corpuscular Hemoglobin Concent 34 g/dL (31-37) Red Cell Distribution Width 13.5 % (11.5-14.5) Platelet Count 242 x10^3/uL (140-400) Neutrophils (%) (Auto) 51 % (31-73) Lymphocytes (%) (Auto) 37 % (24-48) Monocytes (%) (Auto) 8 % (0-9) Eosinophils (%) (Auto) 4 % (0-3) Basophils (%) (Auto) 1 % (0-3) Neutrophils # (Auto) 2.5 x10^3uL (1.8-7.7) Lymphocytes # (Auto) 1.8 x10^3/uL (1.0-4.8) Monocytes # (Auto) 0.4 x10^3/uL (0.0-1.1) Eosinophils # (Auto) 0.2 x10^3/uL (0.0-0.7) Basophils # (Auto) 0.0 x10^3/uL (0.0-0.2) Sodium Level 140 mmol/L (136-145) Potassium Level 3.6 mmol/L (3.5-5.1) Chloride Level 104 mmol/L (98-107) Carbon Dioxide Level 31 mmol/L (21-32) Anion Gap 5 (6-14) Blood Urea Nitrogen 24 mg/dL (7-20) Creatinine 0.7 mg/dL (0.6-1.0) Estimated GFR (Cockcroft-Gault) 86.9 Glucose Level 293 mg/dL (70-99) Calcium Level 8.5 mg/dL (8.5-10.1) Glucose (Fingerstick) 314 mg/dL (70-99) 334 mg/dL (70-99) 314 mg/dL (70-99) Test 12/04/17 15:24 12/04/17 17:16 12/04/17 20:53 12/05/17 04:05 Glucose (Fingerstick) 200 mg/dL (70-99) 98 mg/dL (70-99) 285 mg/dL (70-99) White Blood Count 4.8 x10^3/uL (4.0-11.0) Red Blood Count 4.32 x10^6/uL (3.50-5.40) Hemoglobin 12.0 g/dL (12.0-15.5) Hematocrit 35.6 % (36.0-47.0) Mean Corpuscular Volume 82 fL (79-100) Mean Corpuscular Hemoglobin 28 pg (25-35) Mean Corpuscular Hemoglobin Concent 34 g/dL (31-37) Red Cell Distribution Width 13.0 % (11.5-14.5) Platelet Count 238 x10^3/uL (140-400) Neutrophils (%) (Auto) 43 % (31-73) Lymphocytes (%) (Auto) 45 % (24-48) Monocytes (%) (Auto) 7 % (0-9) Eosinophils (%) (Auto) 5 % (0-3) Basophils (%) (Auto) 1 % (0-3) Neutrophils # (Auto) 2.0 x10^3uL (1.8-7.7) Lymphocytes # (Auto) 2.2 x10^3/uL (1.0-4.8) Monocytes # (Auto) 0.3 x10^3/uL (0.0-1.1) Eosinophils # (Auto) 0.2 x10^3/uL (0.0-0.7) Basophils # (Auto) 0.0 x10^3/uL (0.0-0.2) Sodium Level 140 mmol/L (136-145) Potassium Level 3.6 mmol/L (3.5-5.1) Chloride Level 105 mmol/L (98-107) Carbon Dioxide Level 30 mmol/L (21-32) Anion Gap 5 (6-14) Blood Urea Nitrogen 14 mg/dL (7-20) Creatinine 0.6 mg/dL (0.6-1.0) Estimated GFR (Cockcroft-Gault) 103.8 BUN/Creatinine Ratio 23 (6-20) Glucose Level 209 mg/dL (70-99) Calcium Level 8.7 mg/dL (8.5-10.1) Total Bilirubin 0.3 mg/dL (0.2-1.0) Aspartate Amino Transf (AST/SGOT) 150 U/L (15-37) Alanine Aminotransferase (ALT/SGPT) 141 U/L (14-59) Alkaline Phosphatase 221 U/L (46-116) Total Protein 5.7 g/dL (6.4-8.2) Albumin 2.7 g/dL (3.4-5.0) Albumin/Globulin Ratio 0.9 (1.0-1.7) Thyroid Stimulating Hormone (TSH) 0.599 uIU/mL (0.358-3.74) Free Thyroxine 1.05 ng/dL (0.76-1.46) Test 12/05/17 07:19 12/05/17 11:16 Glucose (Fingerstick) 138 mg/dL (70-99) 141 mg/dL (70-99) Laboratory Tests Test 12/04/17 15:24 12/04/17 17:16 12/04/17 20:53 12/05/17 04:05 Glucose (Fingerstick) 200 mg/dL (70-99) 98 mg/dL (70-99) 285 mg/dL (70-99) White Blood Count 4.8 x10^3/uL (4.0-11.0) Red Blood Count 4.32 x10^6/uL (3.50-5.40) Hemoglobin 12.0 g/dL (12.0-15.5) Hematocrit 35.6 % (36.0-47.0) Mean Corpuscular Volume 82 fL (79-100) Mean Corpuscular Hemoglobin 28 pg (25-35) Mean Corpuscular Hemoglobin Concent 34 g/dL (31-37) Red Cell Distribution Width 13.0 % (11.5-14.5) Platelet Count 238 x10^3/uL (140-400) Neutrophils (%) (Auto) 43 % (31-73) Lymphocytes (%) (Auto) 45 % (24-48) Monocytes (%) (Auto) 7 % (0-9) Eosinophils (%) (Auto) 5 % (0-3) Basophils (%) (Auto) 1 % (0-3) Neutrophils # (Auto) 2.0 x10^3uL (1.8-7.7) Lymphocytes # (Auto) 2.2 x10^3/uL (1.0-4.8) Monocytes # (Auto) 0.3 x10^3/uL (0.0-1.1) Eosinophils # (Auto) 0.2 x10^3/uL (0.0-0.7) Basophils # (Auto) 0.0 x10^3/uL (0.0-0.2) Sodium Level 140 mmol/L (136-145) Potassium Level 3.6 mmol/L (3.5-5.1) Chloride Level 105 mmol/L (98-107) Carbon Dioxide Level 30 mmol/L (21-32) Anion Gap 5 (6-14) Blood Urea Nitrogen 14 mg/dL (7-20) Creatinine 0.6 mg/dL (0.6-1.0) Estimated GFR (Cockcroft-Gault) 103.8 BUN/Creatinine Ratio 23 (6-20) Glucose Level 209 mg/dL (70-99) Calcium Level 8.7 mg/dL (8.5-10.1) Total Bilirubin 0.3 mg/dL (0.2-1.0) Aspartate Amino Transf (AST/SGOT) 150 U/L (15-37) Alanine Aminotransferase (ALT/SGPT) 141 U/L (14-59) Alkaline Phosphatase 221 U/L (46-116) Total Protein 5.7 g/dL (6.4-8.2) Albumin 2.7 g/dL (3.4-5.0) Albumin/Globulin Ratio 0.9 (1.0-1.7) Thyroid Stimulating Hormone (TSH) 0.599 uIU/mL (0.358-3.74) Free Thyroxine 1.05 ng/dL (0.76-1.46) Test 12/05/17 07:19 12/05/17 11:16 Glucose (Fingerstick) 138 mg/dL (70-99) 141 mg/dL (70-99) Medications Current Medications Sodium Chloride 1,000 ml @ 1,000 mls/hr Q1H IV Last administered on 12/03/17 16:43; Start 12/03/17 at 16:43; Stop 12/03/17 at 17:42; Status DC Lorazepam (Ativan) 1 mg 1X ONCE IV Last administered on 12/03/17at 19:30; Start 12/03/17 at 16:45; Stop 12/03/17 at 16:49; Status DC Insulin Human Regular (HumuLIN R VIAL) 10 unit 1X ONCE IV Last administered on 12/03/17at 19:32; Start 12/03/17 at 19:30; Stop 12/03/17 at 19:31; Status DC Ondansetron HCl (Zofran) 4 mg PRN Q8HRS PRN IV NAUSEA/VOMITING; Start 12/03/17 at 20:45; Stop 12/04/17 at 20:44; Status DC Sodium Chloride 1,000 ml @ 125 mls/hr Q8H IV Last administered on 12/04/17at 12 :19; Start 12/03/17 at 20:35; Stop 12/04/17 at 20:34; Status DC Amitriptyline HCl (Elavil) 50 mg QHS PO Last administered on 12/04/17at 20:59; Start 12/04/17 at 21:00 Fludrocortisone Acetate (Florinef) 0.1 mg DAILY PO Last administered on at 10:19; Start 12/04/17 at 09:00; Stop 12/05/17 at 13:36; Status DC Insulin Human Lispro (HumaLOG) 10 units TIDWMEALS SQ Last administered on at 12:24; Start 12/04/17 at 08:00; Stop 12/04/17 at 13:32; Status DC Insulin Glargine (Lantus) 30 units QHS SQ Last administered on 12/04/17at 21:05 ; Start 12/04/17 at 21:00 Atorvastatin Calcium (Lipitor) 5 mg QHS PO ; Start 12/04/17 at 21:00 Insulin Human Lispro (HumaLOG) 14 units TIDWMEALS SQ Last administered on at 12:09; Start 12/04/17 at 14:00 Insulin Human Lispro (HumaLOG) 0-9 UNITS TIDWMEALS SQ ; Start 12/04/17 at 14:00 Dextrose (Dextrose 50%-Water Syringe) 12.5 gm PRN Q15MIN PRN IV SEE COMMENTS; Start 12/04/17 at 13:45 Midodrine (Proamatine) 2.5 mg 1X ONCE PO Last administered on 12/04/17at 15:15 ; Start 12/04/17 at 14:30; Stop 12/05/17 at 13:36; Status DC Midodrine (Proamatine) 2.5 mg [id number] PO ; Start 12/05/17 at 07:00 Iohexol (Omnipaque 300 Mg/ml) 75 ml 1X ONCE IV Last administered on 12/05/17at 09:52; Start 12/05/17 at 08:15; Stop 12/05/17 at 08:16; Status DC Iohexol (Omnipaque 240 Mg/ml) 50 ml 1X ONCE PO Last administered on 12/05/17at 09:52; Start 12/05/17 at 08:15; Stop 12/05/17 at 08:16; Status DC Info (CONTRAST GIVEN -- Rx MONITORING) 1 each PRN DAILY PRN MC SEE COMMENTS; Start 12/05/17 at 08:30; Stop 12/07/17 at 08:29 Fludrocortisone Acetate (Florinef) 0.1 mg BID PO Last administered on at 14:33; Start 12/05/17 at 14:00 Active Scripts Active Fludrocortisone Acetate 0.1 Mg Tablet 0.1 Mg PO DAILY Levemir Flextouch (Insulin Detemir) 300 Units/3 Ml Insuln.pen 30 Units SQ QHS Novolog Flexpen (Insulin Aspart) 300 Units/3 Ml Insuln.pen 10 Units SQ TIDAC Reported Amitriptyline Hcl 50 Mg Tablet 1 Tab PO QHS Lovastatin 20 Mg Tablet 1 Tab PO DAILY Vitals/I & O Vital Sign - Last 24 Hours 12/04/17 12/04/17 12/04/17 12/05/17 19:49 20:06 23:30 03:59 Temp 98.8 97.5 98.8 97.5 Pulse 96 94 Resp 19 19 B/P (MAP) 156/92 (113) 181/103 (129) Pulse Ox 97 93 O2 Delivery Room Air Room Air Room Air Room Air 12/05/17 12/05/17 12/05/17 12/05/17 04:12 07:00 07:05 07:10 Temp 97.5 97.7 97.5 97.7 Pulse 89 87 89 91 Resp 18 18 B/P (MAP) 159/97 (117) 157/98 (117) 138/87 (104) 103/63 (76) Pulse Ox 97 99 97 98 O2 Delivery Room Air Room Air Room Air Room Air 12/05/17 12/05/17 12/05/17 08:00 10:53 14:50 Temp 97.5 97.6 97.5 97.6 Pulse 91 90 Resp 18 B/P (MAP) 180/104 (129) 168/92 (117) Pulse Ox 100 100 O2 Delivery Room Air Room Air Room Air Intake and Output 12/04/17 12/04/17 12/05/17 15:00 23:00 07:00 Intake Total 2050 ml 1570 ml 0 ml Output Total 800 ml 800 ml 1300 ml Balance 1250 ml 770 ml -1300 ml VENESSA LOWE MD Dec 05, 2017 15:18
[2017-12-05 19:14] LABS: HEMOGLOBIN A1C 11.9 % (4.8-5.6)
[2017-12-05] MEDS: AMITRIPTYLINE HCL 50 MG TABLET PO SCH (21:02)
[2017-12-05] MEDS: INSULIN GLARGINE 300 UNITS/3 ML INSULN.PEN. SQ SCH (21:08)
[2017-12-06 02:52] VITALS: BP 136/82
[2017-12-06 07:00] VITALS: BP 136/86
[2017-12-06 07:05] VITALS: BP 102/67
[2017-12-06 07:10] VITALS: BP 74/50
[2017-12-06] MEDS: FLUDROCORTISONE 0.1 MG TABLET PO SCH (08:28)
[2017-12-06] MEDS: INSULIN LISPRO 300 UNITS/3 ML INSULN.PEN. SQ SCH ×6 (08:30→16:47)
[2017-12-06 08:35] LABS: BASO % 1 % (0-3); EOS # 0.3 x10^3/uL (0.0-0.7); EOS % 5 % (0-3); HEMATOCRIT 35.7 % (36.0-47.0); LYMPH % 39 % (24-48); MEAN CORPUSCULAR HEMOGLOBIN 28 pg (25-35); MEAN CORPUSCULAR HGB CONC 34 g/dL (31-37); MEAN CORPUSCULAR VOLUME 82 fL (79-100); MONO # 0.4 x10^3/uL (0.0-1.1); MONO % 7 % (0-9); NEUT # 2.5 x10^3uL (1.8-7.7); NEUT % 48 % (31-73); PLATELET COUNT 240 x10^3/uL (140-400); RED BLOOD COUNT 4.34 x10^6/uL (3.50-5.40); WHITE BLOOD COUNT 5.1 x10^3/uL (4.0-11.0)
[2017-12-06 08:47] LABS: ALBUMIN 2.6 g/dL (3.4-5.0); ALBUMIN/GLOBULIN RATIO 0.7 (1.0-1.7); CALCIUM 8.8 mg/dL (8.5-10.1); CREATININE 0.6 mg/dL (0.6-1.0); GFR 103.8; POTASSIUM 3.4 mmol/L (3.5-5.1); TOTAL BILIRUBIN 0.2 mg/dL (0.2-1.0); TOTAL PROTEIN 6.1 g/dL (6.4-8.2)
[2017-12-06 11:07] VITALS: BP 152/85
--- NOTE | 2017-12-06 11:34 | PDOC ---
PROGRESS NOTES Chief Complaint Chief Complaint syncope Orthostatic hypotension Labile HTN Labile DM SP DM2 with possible autonomic instability History of Present Illness History of Present Illness TSH normal CV following, plan tilt table today Hypoglycemic today Fludrocortisone recently increased by neurology-she is able to afford that Plan: Heavy discussion about Victoza etc. OHA-but she is unable to afford that Able to afford fludrocortisone increased dose by neuro Tilt table today Levemir 30 daily at bedtime-if blood sugars are low during the morning - can have a midnight snack or decrease Levemir dose Otherwise continue regimen FAll risk Vitals Vitals Vital Signs Date Time Temp Pulse Resp B/P (MAP) Pulse Ox O2 Delivery O2 Flow Rate FiO2 12/06/17 11:07 97.9 98 18 152/85 (107) 97 Room Air 97.9 Physical Exam General: Alert, Oriented X3, Cooperative Heart: Regular rate, Normal S1, Normal S2 Lungs: Clear Abdomen: Normal bowel sounds, Soft Extremities: Other (excoriations on the right knee and right pretibial area that she suffered with her fall when she passed out) Skin: No rashes Labs LABS Laboratory Tests Test 12/05/17 16:12 12/05/17 20:54 12/06/17 07:05 12/06/17 07:13 Glucose (Fingerstick) 293 mg/dL (70-99) 251 mg/dL (70-99) 206 mg/dL (70-99) White Blood Count 5.1 x10^3/uL (4.0-11.0) Red Blood Count 4.34 x10^6/uL (3.50-5.40) Hemoglobin 12.0 g/dL (12.0-15.5) Hematocrit 35.7 % (36.0-47.0) Mean Corpuscular Volume 82 fL (79-100) Mean Corpuscular Hemoglobin 28 pg (25-35) Mean Corpuscular Hemoglobin Concent 34 g/dL (31-37) Red Cell Distribution Width 13.0 % (11.5-14.5) Platelet Count 240 x10^3/uL (140-400) Neutrophils (%) (Auto) 48 % (31-73) Lymphocytes (%) (Auto) 39 % (24-48) Monocytes (%) (Auto) 7 % (0-9) Eosinophils (%) (Auto) 5 % (0-3) Basophils (%) (Auto) 1 % (0-3) Neutrophils # (Auto) 2.5 x10^3uL (1.8-7.7) Lymphocytes # (Auto) 2.0 x10^3/uL (1.0-4.8) Monocytes # (Auto) 0.4 x10^3/uL (0.0-1.1) Eosinophils # (Auto) 0.3 x10^3/uL (0.0-0.7) Basophils # (Auto) 0.0 x10^3/uL (0.0-0.2) Sodium Level 141 mmol/L (136-145) Potassium Level 3.4 mmol/L (3.5-5.1) Chloride Level 104 mmol/L (98-107) Carbon Dioxide Level 31 mmol/L (21-32) Anion Gap 6 (6-14) Blood Urea Nitrogen 16 mg/dL (7-20) Creatinine 0.6 mg/dL (0.6-1.0) Estimated GFR (Cockcroft-Gault) 103.8 BUN/Creatinine Ratio 27 (6-20) Glucose Level 230 mg/dL (70-99) Calcium Level 8.8 mg/dL (8.5-10.1) Total Bilirubin 0.2 mg/dL (0.2-1.0) Gamma Glutamyl Transpeptidase 354 U/L (5-55) Aspartate Amino Transf (AST/SGOT) 54 U/L (15-37) Alanine Aminotransferase (ALT/SGPT) 96 U/L (14-59) Alkaline Phosphatase 250 U/L (46-116) Total Protein 6.1 g/dL (6.4-8.2) Albumin 2.6 g/dL (3.4-5.0) Albumin/Globulin Ratio 0.7 (1.0-1.7) Test 12/06/17 10:29 12/06/17 10:49 Glucose (Fingerstick) 52 mg/dL (70-99) 57 mg/dL (70-99) Review of Systems Review of Systems A 14 point ROS was completed with the following noted as positive: Other systems reviewed and negative. \CONSTITUTIONAL: No fever or chills EYES: No recent changes SKIN: No rash or itching CARDIOVASCULAR: No chest pain, syncope, palpitations, or edema RESPIRATORY: No SOB or cough GASTROINTESTINAL: No nausea, vomiting or abdominal pain NEUROLOGICAL: No headaches or weakness ENDOCRINE: No cold or heat intolerance GENITOURINARY: No urgency or frequency of urination MUSCULOSKELETAL: No back pain or joint pain LYMPHATICS: No enlarged lymph nodes PSYCHIATRIC: No anxiety or depression Assessment and Plan Assessmemt and Plan Problems Medical Problems: (1) Hyperglycemia due to type 1 diabetes mellitus Status: Acute (2) Orthostatic hypotension Status: Acute (3) Visual changes Status: Acute Comment Review of Relevant I have reviewed the following items zurdo (where applicable) has been applied. Labs Laboratory Tests Test 12/04/17 13:23 12/04/17 15:24 12/04/17 17:16 12/04/17 20:53 Glucose (Fingerstick) 314 mg/dL (70-99) 200 mg/dL (70-99) 98 mg/dL (70-99) 285 mg/dL (70-99) Test 12/05/17 04:05 12/05/17 07:19 12/05/17 11:16 12/05/17 16:12 White Blood Count 4.8 x10^3/uL (4.0-11.0) Red Blood Count 4.32 x10^6/uL (3.50-5.40) Hemoglobin 12.0 g/dL (12.0-15.5) Hematocrit 35.6 % (36.0-47.0) Mean Corpuscular Volume 82 fL (79-100) Mean Corpuscular Hemoglobin 28 pg (25-35) Mean Corpuscular Hemoglobin Concent 34 g/dL (31-37) Red Cell Distribution Width 13.0 % (11.5-14.5) Platelet Count 238 x10^3/uL (140-400) Neutrophils (%) (Auto) 43 % (31-73) Lymphocytes (%) (Auto) 45 % (24-48) Monocytes (%) (Auto) 7 % (0-9) Eosinophils (%) (Auto) 5 % (0-3) Basophils (%) (Auto) 1 % (0-3) Neutrophils # (Auto) 2.0 x10^3uL (1.8-7.7) Lymphocytes # (Auto) 2.2 x10^3/uL (1.0-4.8) Monocytes # (Auto) 0.3 x10^3/uL (0.0-1.1) Eosinophils # (Auto) 0.2 x10^3/uL (0.0-0.7) Basophils # (Auto) 0.0 x10^3/uL (0.0-0.2) Sodium Level 140 mmol/L (136-145) Potassium Level 3.6 mmol/L (3.5-5.1) Chloride Level 105 mmol/L (98-107) Carbon Dioxide Level 30 mmol/L (21-32) Anion Gap 5 (6-14) Blood Urea Nitrogen 14 mg/dL (7-20) Creatinine 0.6 mg/dL (0.6-1.0) Estimated GFR (Cockcroft-Gault) 103.8 BUN/Creatinine Ratio 23 (6-20) Glucose Level 209 mg/dL (70-99) Hemoglobin A1c 11.9 % (4.8-5.6) Calcium Level 8.7 mg/dL (8.5-10.1) Total Bilirubin 0.3 mg/dL (0.2-1.0) Aspartate Amino Transf (AST/SGOT) 150 U/L (15-37) Alanine Aminotransferase (ALT/SGPT) 141 U/L (14-59) Alkaline Phosphatase 221 U/L (46-116) Total Protein 5.7 g/dL (6.4-8.2) Albumin 2.7 g/dL (3.4-5.0) Albumin/Globulin Ratio 0.9 (1.0-1.7) Thyroid Stimulating Hormone (TSH) 0.599 uIU/mL (0.358-3.74) Free Thyroxine 1.05 ng/dL (0.76-1.46) Glucose (Fingerstick) 138 mg/dL (70-99) 141 mg/dL (70-99) 293 mg/dL (70-99) Test 12/05/17 20:54 12/06/17 07:05 12/06/17 07:13 12/06/17 10:29 Glucose (Fingerstick) 251 mg/dL (70-99) 206 mg/dL (70-99) 52 mg/dL (70-99) White Blood Count 5.1 x10^3/uL (4.0-11.0) Red Blood Count 4.34 x10^6/uL (3.50-5.40) Hemoglobin 12.0 g/dL (12.0-15.5) Hematocrit 35.7 % (36.0-47.0) Mean Corpuscular Volume 82 fL (79-100) Mean Corpuscular Hemoglobin 28 pg (25-35) Mean Corpuscular Hemoglobin Concent 34 g/dL (31-37) Red Cell Distribution Width 13.0 % (11.5-14.5) Platelet Count 240 x10^3/uL (140-400) Neutrophils (%) (Auto) 48 % (31-73) Lymphocytes (%) (Auto) 39 % (24-48) Monocytes (%) (Auto) 7 % (0-9) Eosinophils (%) (Auto) 5 % (0-3) Basophils (%) (Auto) 1 % (0-3) Neutrophils # (Auto) 2.5 x10^3uL (1.8-7.7) Lymphocytes # (Auto) 2.0 x10^3/uL (1.0-4.8) Monocytes # (Auto) 0.4 x10^3/uL (0.0-1.1) Eosinophils # (Auto) 0.3 x10^3/uL (0.0-0.7) Basophils # (Auto) 0.0 x10^3/uL (0.0-0.2) Sodium Level 141 mmol/L (136-145) Potassium Level 3.4 mmol/L (3.5-5.1) Chloride Level 104 mmol/L (98-107) Carbon Dioxide Level 31 mmol/L (21-32) Anion Gap 6 (6-14) Blood Urea Nitrogen 16 mg/dL (7-20) Creatinine 0.6 mg/dL (0.6-1.0) Estimated GFR (Cockcroft-Gault) 103.8 BUN/Creatinine Ratio 27 (6-20) Glucose Level 230 mg/dL (70-99) Calcium Level 8.8 mg/dL (8.5-10.1) Total Bilirubin 0.2 mg/dL (0.2-1.0) Gamma Glutamyl Transpeptidase 354 U/L (5-55) Aspartate Amino Transf (AST/SGOT) 54 U/L (15-37) Alanine Aminotransferase (ALT/SGPT) 96 U/L (14-59) Alkaline Phosphatase 250 U/L (46-116) Total Protein 6.1 g/dL (6.4-8.2) Albumin 2.6 g/dL (3.4-5.0) Albumin/Globulin Ratio 0.7 (1.0-1.7) Test 12/06/17 10:49 Glucose (Fingerstick) 57 mg/dL (70-99) Laboratory Tests Test 12/05/17 16:12 12/05/17 20:54 12/06/17 07:05 12/06/17 07:13 Glucose (Fingerstick) 293 mg/dL (70-99) 251 mg/dL (70-99) 206 mg/dL (70-99) White Blood Count 5.1 x10^3/uL (4.0-11.0) Red Blood Count 4.34 x10^6/uL (3.50-5.40) Hemoglobin 12.0 g/dL (12.0-15.5) Hematocrit 35.7 % (36.0-47.0) Mean Corpuscular Volume 82 fL (79-100) Mean Corpuscular Hemoglobin 28 pg (25-35) Mean Corpuscular Hemoglobin Concent 34 g/dL (31-37) Red Cell Distribution Width 13.0 % (11.5-14.5) Platelet Count 240 x10^3/uL (140-400) Neutrophils (%) (Auto) 48 % (31-73) Lymphocytes (%) (Auto) 39 % (24-48) Monocytes (%) (Auto) 7 % (0-9) Eosinophils (%) (Auto) 5 % (0-3) Basophils (%) (Auto) 1 % (0-3) Neutrophils # (Auto) 2.5 x10^3uL (1.8-7.7) Lymphocytes # (Auto) 2.0 x10^3/uL (1.0-4.8) Monocytes # (Auto) 0.4 x10^3/uL (0.0-1.1) Eosinophils # (Auto) 0.3 x10^3/uL (0.0-0.7) Basophils # (Auto) 0.0 x10^3/uL (0.0-0.2) Sodium Level 141 mmol/L (136-145) Potassium Level 3.4 mmol/L (3.5-5.1) Chloride Level 104 mmol/L (98-107) Carbon Dioxide Level 31 mmol/L (21-32) Anion Gap 6 (6-14) Blood Urea Nitrogen 16 mg/dL (7-20) Creatinine 0.6 mg/dL (0.6-1.0) Estimated GFR (Cockcroft-Gault) 103.8 BUN/Creatinine Ratio 27 (6-20) Glucose Level 230 mg/dL (70-99) Calcium Level 8.8 mg/dL (8.5-10.1) Total Bilirubin 0.2 mg/dL (0.2-1.0) Gamma Glutamyl Transpeptidase 354 U/L (5-55) Aspartate Amino Transf (AST/SGOT) 54 U/L (15-37) Alanine Aminotransferase (ALT/SGPT) 96 U/L (14-59) Alkaline Phosphatase 250 U/L (46-116) Total Protein 6.1 g/dL (6.4-8.2) Albumin 2.6 g/dL (3.4-5.0) Albumin/Globulin Ratio 0.7 (1.0-1.7) Test 12/06/17 10:29 12/06/17 10:49 Glucose (Fingerstick) 52 mg/dL (70-99) 57 mg/dL (70-99) Medications Current Medications Sodium Chloride 1,000 ml @ 1,000 mls/hr Q1H IV Last administered on 12/03/17 16:43; Start 12/03/17 at 16:43; Stop 12/03/17 at 17:42; Status DC Lorazepam (Ativan) 1 mg 1X ONCE IV Last administered on 12/03/17at 19:30; Start 12/03/17 at 16:45; Stop 12/03/17 at 16:49; Status DC Insulin Human Regular (HumuLIN R VIAL) 10 unit 1X ONCE IV Last administered on 12/03/17 19:32; Start 12/03/17 at 19:30; Stop 12/03/17 at 19:31; Status DC Ondansetron HCl (Zofran) 4 mg PRN Q8HRS PRN IV NAUSEA/VOMITING; Start 12/03/17 at 20:45; Stop 12/04/17 at 20:44; Status DC Sodium Chloride 1,000 ml @ 125 mls/hr Q8H IV Last administered on 12/04/17at 12 :19; Start 12/03/17 at 20:35; Stop 12/04/17 at 20:34; Status DC Amitriptyline HCl (Elavil) 50 mg QHS PO Last administered on 12/05/17at 21:02; Start 12/04/17 at 21:00 Fludrocortisone Acetate (Florinef) 0.1 mg DAILY PO Last administered on at 10:19; Start 12/04/17 at 09:00; Stop 12/05/17 at 13:36; Status DC Insulin Human Lispro (HumaLOG) 10 units TIDWMEALS SQ Last administered on at 12:24; Start 12/04/17 at 08:00; Stop 12/04/17 at 13:32; Status DC Insulin Glargine (Lantus) 30 units QHS SQ Last administered on 12/05/17at 21:08 ; Start 12/04/17 at 21:00 Atorvastatin Calcium (Lipitor) 5 mg QHS PO ; Start 12/04/17 at 21:00; Stop 12/05 at 19:32; Status DC Insulin Human Lispro (HumaLOG) 14 units TIDWMEALS SQ Last administered on at 08:30; Start 12/04/17 at 14:00 Insulin Human Lispro (HumaLOG) 0-9 UNITS TIDWMEALS SQ Last administered on 12/06at 08:31; Start 12/04/17 at 14:00 Dextrose (Dextrose 50%-Water Syringe) 12.5 gm PRN Q15MIN PRN IV SEE COMMENTS; Start 12/04/17 at 13:45 Midodrine (Proamatine) 2.5 mg 1X ONCE PO Last administered on 12/04/17at 15:15 ; Start 12/04/17 at 14:30; Stop 12/05/17 at 13:36; Status DC Midodrine (Proamatine) 2.5 mg [id number] PO ; Start 12/05/17 at 07:00 Iohexol (Omnipaque 300 Mg/ml) 75 ml 1X ONCE IV Last administered on 12/05/17at 09:52; Start 12/05/17 at 08:15; Stop 12/05/17 at 08:16; Status DC Iohexol (Omnipaque 240 Mg/ml) 50 ml 1X ONCE PO Last administered on 12/05/17at 09:52; Start 12/05/17 at 08:15; Stop 12/05/17 at 08:16; Status DC Info (CONTRAST GIVEN -- Rx MONITORING) 1 each PRN DAILY PRN MC SEE COMMENTS; Start 12/05/17 at 08:30; Stop 12/07/17 at 08:29 Fludrocortisone Acetate (Florinef) 0.1 mg BID PO Last administered on at 08:28; Start 12/05/17 at 14:00 Active Scripts Active Fludrocortisone Acetate 0.1 Mg Tablet 0.1 Mg PO DAILY Levemir Flextouch (Insulin Detemir) 300 Units/3 Ml Insuln.pen 30 Units SQ QHS Novolog Flexpen (Insulin Aspart) 300 Units/3 Ml Insuln.pen 10 Units SQ TIDAC Reported Amitriptyline Hcl 50 Mg Tablet 1 Tab PO QHS Lovastatin 20 Mg Tablet 1 Tab PO DAILY Vitals/I & O Vital Sign - Last 24 Hours 12/05/17 12/05/17 12/05/17 12/05/17 14:50 19:00 20:31 23:00 Temp 97.6 98.1 98.2 97.6 98.1 98.2 Pulse 90 99 97 Resp 18 18 18 B/P (MAP) 168/92 (117) 137/80 (99) 151/94 (113) Pulse Ox 100 99 97 O2 Delivery Room Air Room Air Room Air Room Air 12/06/17 12/06/17 12/06/17 12/06/17 02:52 07:00 07:05 07:10 Temp 97.9 97.8 97.9 97.8 Pulse 101 108 91 106 Resp 18 18 18 B/P (MAP) 136/82 (100) 136/86 (103) 102/67 (79) 74/50 (58) Pulse Ox 95 96 97 97 O2 Delivery Room Air Room Air Room Air Room Air 12/06/17 12/06/17 08:00 11:07 Temp 97.9 97.9 Pulse 98 Resp 18 B/P (MAP) 152/85 (107) Pulse Ox 97 O2 Delivery Room Air Room Air Intake and Output 12/05/17 12/05/17 12/06/17 15:00 23:00 07:00 Intake Total 300 ml 1160 ml 344 ml Output Total 900 ml Balance -600 ml 1160 ml 344 ml REGINA DAVID MD Dec 06, 2017 11:34
[2017-12-06] MEDS: MIDODRINE 2.5 MG TABLET PO SCH ×2 (13:00→18:00)
[2017-12-06] MEDS ORDERED: traMADol 50 MG TABLET PO PRN (14:15)
[2017-12-06] MEDS ORDERED: ACETAMINOPHEN 325 MG TABLET. PO PRN (14:15)
[2017-12-06] MEDS ORDERED: ACETAMINOPHEN 325 MG TABLET. PO ONE (14:30)
[2017-12-06 14:42] VITALS: BP 160/92
--- NOTE | 2017-12-06 18:07 | PDOC ---
PROGRESS NOTES Assessment Assessment IMPRESSION: Dizziness. Orthostatic hypotension. Autonomic/diabetic neuropathy. DM, type 1. HTN. HLD. Wound. RECOMMENDATIONS/PLAN: Continue Fludrocortisone. Continue Midodrine, but patient stated she would not continue it after discharge due to high cost. Treat medical diseases. OT/PT. Discussed with her at bedside. Past Medical History Cardiovascular: HTN, Hyperlipidemia CENTRAL NERVOUS SYSTEM: Peripheral neuropathy (including autonomic neuropathy) , TIA Psych: Anxiety, Depression Renal/: UTI, Urinary Incontinence Endocrine: Diabetes (1) Past Surgical History Foot surgery. 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 Head: No traumatic brain or head injury. Skin: No edema, or rash. Ear: No infection. Eyes: No vision loss, or diplopia. Nose: No bleeding or purulent discharges. Hearing: No hearing decrease. Neck: No injury. Breast: No history of cancer, masses, or discharges. Cardiac: HTN, HLD Pulmonary: No COPD. GI: No GI Ulcer, GI bleeding Urinary/genital: UTI. Endocrine: Diabetes Mellitus. Skeletomuscular: No muscular atrophy. Neurological: see HP. Psychiatric: Denies drug use/abuse. Otherwise, not [id number] review of systems. PHYSICAL EXAMINATION: General appearance in no acute distress. HEENT: Normocephalic and nontraumatic. Eyes, nose, ears, and throat are unremarkable. Hearing decrease. Neck is supple. No lymphadenopathy.No Crepitus. Cardiovascular: S1, S2, regular rate and rhythm. Pulmonary: Clear to auscultation bilaterally. Abdomen: Bowel sounds are positive. Abdomen is soft, nontender, and nondistended. Extremities: No rash, lesions, or edema. No restriction of range of motion NEUROLOGICAL EXAMINATION: Alert. Oriented to time, place and person. PERRL. EOMI. CN: no focal findings. Muscle tone: within normal. Muscle strength: 5- DTR: 2 UE, 1 knee. Plantar reflex: Flexor response bilaterally Gait: not examined in bed. Sensory exam: no abnormal findings. No cerebellar signs elicited. F-T-N test accurate. Objective Objective Vital Signs Date Time Temp Pulse Resp B/P (MAP) Pulse Ox O2 Delivery O2 Flow Rate FiO2 12/06/17 14:42 97.9 99 18 160/92 (114) 100 Room Air 97.9 Intake and Output 12/06/17 07:00 Intake Total 1804 ml Output Total 900 ml Balance 904 ml Intake Oral 1804 ml Output Urine Total 900 ml Vitals Signs Vitals VS - Last 72 Hours, by Label Date Time Temp Pulse Resp B/P (MAP) Pulse Ox O2 Delivery O2 Flow Rate FiO2 12/06/17 14:42 97.9 99 18 160/92 (114) 100 Room Air 97.9 12/06/17 11:07 97.9 98 18 152/85 (107) 97 Room Air 97.9 12/06/17 08:00 Room Air 12/06/17 07:10 106 18 74/50 (58) 97 Room Air 12/06/17 07:05 91 18 102/67 (79) 97 Room Air 12/06/17 07:00 97.8 108 18 136/86 (103) 96 Room Air 97.8 12/06/17 02:52 97.9 101 18 136/82 (100) 95 Room Air 97.9 12/05/17 23:00 98.2 97 18 151/94 (113) 97 Room Air 98.2 12/05/17 20:31 Room Air 12/05/17 19:00 98.1 99 18 137/80 (99) 99 Room Air 98.1 12/05/17 14:50 97.6 90 18 168/92 (117) 100 Room Air 97.6 12/05/17 10:53 97.5 91 18 180/104 (129) 100 Room Air 97.5 12/05/17 08:00 Room Air 12/05/17 07:10 91 18 103/63 (76) 98 Room Air 12/05/17 07:05 89 18 138/87 (104) 97 Room Air 12/05/17 07:00 97.7 87 18 157/98 (117) 99 Room Air 97.7 Laboratory Laboratory Laboratory Tests Test 12/05/17 20:54 12/06/17 07:05 12/06/17 07:13 12/06/17 10:29 Glucose (Fingerstick) 251 mg/dL (70-99) 206 mg/dL (70-99) 52 mg/dL (70-99) White Blood Count 5.1 x10^3/uL (4.0-11.0) Red Blood Count 4.34 x10^6/uL (3.50-5.40) Hemoglobin 12.0 g/dL (12.0-15.5) Hematocrit 35.7 % (36.0-47.0) Mean Corpuscular Volume 82 fL (79-100) Mean Corpuscular Hemoglobin 28 pg (25-35) Mean Corpuscular Hemoglobin Concent 34 g/dL (31-37) Red Cell Distribution Width 13.0 % (11.5-14.5) Platelet Count 240 x10^3/uL (140-400) Neutrophils (%) (Auto) 48 % (31-73) Lymphocytes (%) (Auto) 39 % (24-48) Monocytes (%) (Auto) 7 % (0-9) Eosinophils (%) (Auto) 5 % (0-3) Basophils (%) (Auto) 1 % (0-3) Neutrophils # (Auto) 2.5 x10^3uL (1.8-7.7) Lymphocytes # (Auto) 2.0 x10^3/uL (1.0-4.8) Monocytes # (Auto) 0.4 x10^3/uL (0.0-1.1) Eosinophils # (Auto) 0.3 x10^3/uL (0.0-0.7) Basophils # (Auto) 0.0 x10^3/uL (0.0-0.2) Sodium Level 141 mmol/L (136-145) Potassium Level 3.4 mmol/L (3.5-5.1) Chloride Level 104 mmol/L (98-107) Carbon Dioxide Level 31 mmol/L (21-32) Anion Gap 6 (6-14) Blood Urea Nitrogen 16 mg/dL (7-20) Creatinine 0.6 mg/dL (0.6-1.0) Estimated GFR (Cockcroft-Gault) 103.8 BUN/Creatinine Ratio 27 (6-20) Glucose Level 230 mg/dL (70-99) Calcium Level 8.8 mg/dL (8.5-10.1) Total Bilirubin 0.2 mg/dL (0.2-1.0) Gamma Glutamyl Transpeptidase 354 U/L (5-55) Aspartate Amino Transf (AST/SGOT) 54 U/L (15-37) Alanine Aminotransferase (ALT/SGPT) 96 U/L (14-59) Alkaline Phosphatase 250 U/L (46-116) Total Protein 6.1 g/dL (6.4-8.2) Albumin 2.6 g/dL (3.4-5.0) Albumin/Globulin Ratio 0.7 (1.0-1.7) Test 12/06/17 10:49 12/06/17 11:29 12/06/17 16:25 Glucose (Fingerstick) 57 mg/dL (70-99) 79 mg/dL (70-99) 441 mg/dL (70-99) Microbiology 12/03/17 Urine Culture - Preliminary, Resulted 12/03/17 Urine Culture Result 1 (GALILEA) - Preliminary, Resulted Medication Medications Current Medications Acetaminophen (Tylenol) 650 mg 1X ONCE PO Last administered on 12/06/17at 14:30 ; Start 12/06/17 at 14:30; Stop 12/06/17 at 14:31; Status DC Acetaminophen (Tylenol) 650 mg PRN Q6HRS PRN PO MILD PAIN; Start 12/06/17 at 14 :15 Tramadol HCl (Ultram) 50 mg PRN Q6HRS PRN PO MODERATE PAIN; Start 12/06/17 at 14:15 Comment Review of Relevant I have reviewed the following items zurdo (where applicable) has been applied. HARDY SHEPARD MD Dec 06, 2017 18:07
--- NOTE | 2017-12-06 20:09 | PDOC ---
PROGRESS NOTES Subjective Subjective The patient has been in sinus rhythm since admission. Today we did the tilt table test and early in the test about 6 minutes into it the patient became very symptomatic feeling like she was going to pass out stating over and over that she couldn't see and was very weak and would have fallen down if the straps were not holding her up to the tilt table test. The patient maintained sinus rhythm with occasional PVCs throughout the entire test. Initially her blood pressure was normal but when she started getting symptomatic her blood pressure dropped to the 70s the next one was in the 60s and the last one was 54 she continued in sinus rhythm throughout this and she was very symptomatic but continued to talk through the test. From the pressure in the 50s she rebounded to a blood pressure of 220/120. At this point we laid her flat and she never lost consciousness. After laying her flat her symptoms resolved. The patient was returned to her room in satisfactory condition. Objective Objective Vital Signs Date Time Temp Pulse Resp B/P (MAP) Pulse Ox O2 Delivery O2 Flow Rate FiO2 12/06/17 14:42 97.9 99 18 160/92 (114) 100 Room Air 97.9 Intake and Output 12/06/17 07:00 Intake Total 1804 ml Output Total 900 ml Balance 904 ml Intake Oral 1804 ml Output Urine Total 900 ml Physical Exam Physical Exam No significant changes in cardiac exam Assessment Assessment This patient had an abnormal tilt table test by symptoms and showed to have very striking blood pressure changes with an initial drop about 6 minutes into the test and then she rebounded to a high blood pressure of 220/120. I am concerned with this patient shifts in blood pressure as well as her symptomatology but she did not have any significant changes in her heart rhythm she maintain sinus rhythm with PVCs throughout the whole test and there was no significant tachycardia or bradycardia in the whole test. In view of this I would recommend for this patient to have a full endocrine workup including adrenal workup as well as pituitary workup. This may be done as an outpatient. I discussed this with the patient and she states that she would be willing to go to [facility] to have the die filer there to her workup. In view of this I think she may be discharged to be followed at [facility]. Comment Review of Relevant I have reviewed the following items zurdo (where applicable) has been applied. Labs Laboratory Tests Test 12/04/17 20:53 12/05/17 04:05 12/05/17 07:19 12/05/17 11:16 Glucose (Fingerstick) 285 mg/dL (70-99) 138 mg/dL (70-99) 141 mg/dL (70-99) White Blood Count 4.8 x10^3/uL (4.0-11.0) Red Blood Count 4.32 x10^6/uL (3.50-5.40) Hemoglobin 12.0 g/dL (12.0-15.5) Hematocrit 35.6 % (36.0-47.0) Mean Corpuscular Volume 82 fL (79-100) Mean Corpuscular Hemoglobin 28 pg (25-35) Mean Corpuscular Hemoglobin Concent 34 g/dL (31-37) Red Cell Distribution Width 13.0 % (11.5-14.5) Platelet Count 238 x10^3/uL (140-400) Neutrophils (%) (Auto) 43 % (31-73) Lymphocytes (%) (Auto) 45 % (24-48) Monocytes (%) (Auto) 7 % (0-9) Eosinophils (%) (Auto) 5 % (0-3) Basophils (%) (Auto) 1 % (0-3) Neutrophils # (Auto) 2.0 x10^3uL (1.8-7.7) Lymphocytes # (Auto) 2.2 x10^3/uL (1.0-4.8) Monocytes # (Auto) 0.3 x10^3/uL (0.0-1.1) Eosinophils # (Auto) 0.2 x10^3/uL (0.0-0.7) Basophils # (Auto) 0.0 x10^3/uL (0.0-0.2) Sodium Level 140 mmol/L (136-145) Potassium Level 3.6 mmol/L (3.5-5.1) Chloride Level 105 mmol/L (98-107) Carbon Dioxide Level 30 mmol/L (21-32) Anion Gap 5 (6-14) Blood Urea Nitrogen 14 mg/dL (7-20) Creatinine 0.6 mg/dL (0.6-1.0) Estimated GFR (Cockcroft-Gault) 103.8 BUN/Creatinine Ratio 23 (6-20) Glucose Level 209 mg/dL (70-99) Hemoglobin A1c 11.9 % (4.8-5.6) Calcium Level 8.7 mg/dL (8.5-10.1) Total Bilirubin 0.3 mg/dL (0.2-1.0) Aspartate Amino Transf (AST/SGOT) 150 U/L (15-37) Alanine Aminotransferase (ALT/SGPT) 141 U/L (14-59) Alkaline Phosphatase 221 U/L (46-116) Total Protein 5.7 g/dL (6.4-8.2) Albumin 2.7 g/dL (3.4-5.0) Albumin/Globulin Ratio 0.9 (1.0-1.7) Thyroid Stimulating Hormone (TSH) 0.599 uIU/mL (0.358-3.74) Free Thyroxine 1.05 ng/dL (0.76-1.46) Test 12/05/17 16:12 12/05/17 20:54 12/06/17 07:05 12/06/17 07:13 Glucose (Fingerstick) 293 mg/dL (70-99) 251 mg/dL (70-99) 206 mg/dL (70-99) White Blood Count 5.1 x10^3/uL (4.0-11.0) Red Blood Count 4.34 x10^6/uL (3.50-5.40) Hemoglobin 12.0 g/dL (12.0-15.5) Hematocrit 35.7 % (36.0-47.0) Mean Corpuscular Volume 82 fL (79-100) Mean Corpuscular Hemoglobin 28 pg (25-35) Mean Corpuscular Hemoglobin Concent 34 g/dL (31-37) Red Cell Distribution Width 13.0 % (11.5-14.5) Platelet Count 240 x10^3/uL (140-400) Neutrophils (%) (Auto) 48 % (31-73) Lymphocytes (%) (Auto) 39 % (24-48) Monocytes (%) (Auto) 7 % (0-9) Eosinophils (%) (Auto) 5 % (0-3) Basophils (%) (Auto) 1 % (0-3) Neutrophils # (Auto) 2.5 x10^3uL (1.8-7.7) Lymphocytes # (Auto) 2.0 x10^3/uL (1.0-4.8) Monocytes # (Auto) 0.4 x10^3/uL (0.0-1.1) Eosinophils # (Auto) 0.3 x10^3/uL (0.0-0.7) Basophils # (Auto) 0.0 x10^3/uL (0.0-0.2) Sodium Level 141 mmol/L (136-145) Potassium Level 3.4 mmol/L (3.5-5.1) Chloride Level 104 mmol/L (98-107) Carbon Dioxide Level 31 mmol/L (21-32) Anion Gap 6 (6-14) Blood Urea Nitrogen 16 mg/dL (7-20) Creatinine 0.6 mg/dL (0.6-1.0) Estimated GFR (Cockcroft-Gault) 103.8 BUN/Creatinine Ratio 27 (6-20) Glucose Level 230 mg/dL (70-99) Calcium Level 8.8 mg/dL (8.5-10.1) Total Bilirubin 0.2 mg/dL (0.2-1.0) Gamma Glutamyl Transpeptidase 354 U/L (5-55) Aspartate Amino Transf (AST/SGOT) 54 U/L (15-37) Alanine Aminotransferase (ALT/SGPT) 96 U/L (14-59) Alkaline Phosphatase 250 U/L (46-116) Total Protein 6.1 g/dL (6.4-8.2) Albumin 2.6 g/dL (3.4-5.0) Albumin/Globulin Ratio 0.7 (1.0-1.7) Test 12/06/17 10:29 12/06/17 10:49 12/06/17 11:29 12/06/17 16:25 Glucose (Fingerstick) 52 mg/dL (70-99) 57 mg/dL (70-99) 79 mg/dL (70-99) 441 mg/dL (70-99) Laboratory Tests Test 12/05/17 20:54 12/06/17 07:05 12/06/17 07:13 12/06/17 10:29 Glucose (Fingerstick) 251 mg/dL (70-99) 206 mg/dL (70-99) 52 mg/dL (70-99) White Blood Count 5.1 x10^3/uL (4.0-11.0) Red Blood Count 4.34 x10^6/uL (3.50-5.40) Hemoglobin 12.0 g/dL (12.0-15.5) Hematocrit 35.7 % (36.0-47.0) Mean Corpuscular Volume 82 fL (79-100) Mean Corpuscular Hemoglobin 28 pg (25-35) Mean Corpuscular Hemoglobin Concent 34 g/dL (31-37) Red Cell Distribution Width 13.0 % (11.5-14.5) Platelet Count 240 x10^3/uL (140-400) Neutrophils (%) (Auto) 48 % (31-73) Lymphocytes (%) (Auto) 39 % (24-48) Monocytes (%) (Auto) 7 % (0-9) Eosinophils (%) (Auto) 5 % (0-3) Basophils (%) (Auto) 1 % (0-3) Neutrophils # (Auto) 2.5 x10^3uL (1.8-7.7) Lymphocytes # (Auto) 2.0 x10^3/uL (1.0-4.8) Monocytes # (Auto) 0.4 x10^3/uL (0.0-1.1) Eosinophils # (Auto) 0.3 x10^3/uL (0.0-0.7) Basophils # (Auto) 0.0 x10^3/uL (0.0-0.2) Sodium Level 141 mmol/L (136-145) Potassium Level 3.4 mmol/L (3.5-5.1) Chloride Level 104 mmol/L (98-107) Carbon Dioxide Level 31 mmol/L (21-32) Anion Gap 6 (6-14) Blood Urea Nitrogen 16 mg/dL (7-20) Creatinine 0.6 mg/dL (0.6-1.0) Estimated GFR (Cockcroft-Gault) 103.8 BUN/Creatinine Ratio 27 (6-20) Glucose Level 230 mg/dL (70-99) Calcium Level 8.8 mg/dL (8.5-10.1) Total Bilirubin 0.2 mg/dL (0.2-1.0) Gamma Glutamyl Transpeptidase 354 U/L (5-55) Aspartate Amino Transf (AST/SGOT) 54 U/L (15-37) Alanine Aminotransferase (ALT/SGPT) 96 U/L (14-59) Alkaline Phosphatase 250 U/L (46-116) Total Protein 6.1 g/dL (6.4-8.2) Albumin 2.6 g/dL (3.4-5.0) Albumin/Globulin Ratio 0.7 (1.0-1.7) Test 12/06/17 10:49 12/06/17 11:29 12/06/17 16:25 Glucose (Fingerstick) 57 mg/dL (70-99) 79 mg/dL (70-99) 441 mg/dL (70-99) Microbiology 12/03/17 Urine Culture - Preliminary, Resulted 12/03/17 Urine Culture Result 1 (GALILEA) - Preliminary, Resulted Medications Current Medications Sodium Chloride 1,000 ml @ 1,000 mls/hr Q1H IV Last administered on 12/03/17at 16:43; Start 12/03/17 at 16:43; Stop 12/03/17 at 17:42; Status DC Lorazepam (Ativan) 1 mg 1X ONCE IV Last administered on 12/03/17at 19:30; Start 12/03/17 at 16:45; Stop 12/03/17 at 16:49; Status DC Insulin Human Regular (HumuLIN R VIAL) 10 unit 1X ONCE IV Last administered on 12/03/17at 19:32; Start 12/03/17 at 19:30; Stop 12/03/17 at 19:31; Status DC Ondansetron HCl (Zofran) 4 mg PRN Q8HRS PRN IV NAUSEA/VOMITING; Start 12/03/17 at 20:45; Stop 12/04/17 at 20:44; Status DC Sodium Chloride 1,000 ml @ 125 mls/hr Q8H IV Last administered on 12/04/17at 12 :19; Start 12/03/17 at 20:35; Stop 12/04/17 at 20:34; Status DC Amitriptyline HCl (Elavil) 50 mg QHS PO Last administered on 12/05/17at 21:02; Start 12/04/17 at 21:00; Stop 12/06/17 at 18:51; Status DC Fludrocortisone Acetate (Florinef) 0.1 mg DAILY PO Last administered on at 10:19; Start 12/04/17 at 09:00; Stop 12/05/17 at 13:36; Status DC Insulin Human Lispro (HumaLOG) 10 units TIDWMEALS SQ Last administered on at 12:24; Start 12/04/17 at 08:00; Stop 12/04/17 at 13:32; Status DC Insulin Glargine (Lantus) 30 units QHS SQ Last administered on 12/05/17at 21:08 ; Start 12/04/17 at 21:00; Stop 12/06/17 at 18:51; Status DC Atorvastatin Calcium (Lipitor) 5 mg QHS PO ; Start 12/04/17 at 21:00; Stop 12/05 at 19:32; Status DC Insulin Human Lispro (HumaLOG) 14 units TIDWMEALS SQ Last administered on at 16:47; Start 12/04/17 at 14:00; Stop 12/06/17 at 18:51; Status DC Insulin Human Lispro (HumaLOG) 0-9 UNITS TIDWMEALS SQ Last administered on 12/06at 16:47; Start 12/04/17 at 14:00; Stop 12/06/17 at 18:51; Status DC Dextrose (Dextrose 50%-Water Syringe) 12.5 gm PRN Q15MIN PRN IV SEE COMMENTS; Start 12/04/17 at 13:45; Stop 12/06/17 at 18:51; Status DC Midodrine (Proamatine) 2.5 mg 1X ONCE PO Last administered on 12/04/17at 15:15 ; Start 12/04/17 at 14:30; Stop 12/05/17 at 13:36; Status DC Midodrine (Proamatine) 2.5 mg [id number] PO ; Start 12/05/17 at 07:00; Stop at 18:51; Status DC Iohexol (Omnipaque 300 Mg/ml) 75 ml 1X ONCE IV Last administered on 12/05/17at 09:52; Start 12/05/17 at 08:15; Stop 12/05/17 at 08:16; Status DC Iohexol (Omnipaque 240 Mg/ml) 50 ml 1X ONCE PO Last administered on 12/05/17at 09:52; Start 12/05/17 at 08:15; Stop 12/05/17 at 08:16; Status DC Info (CONTRAST GIVEN -- Rx MONITORING) 1 each PRN DAILY PRN MC SEE COMMENTS; Start 12/05/17 at 08:30; Stop 12/06/17 at 18:51; Status DC Fludrocortisone Acetate (Florinef) 0.1 mg BID PO Last administered on at 08:28; Start 12/05/17 at 14:00; Stop 12/06/17 at 18:51; Status DC Acetaminophen (Tylenol) 650 mg 1X ONCE PO Last administered on 12/06/17at 14:30 ; Start 12/06/17 at 14:30; Stop 12/06/17 at 14:31; Status DC Acetaminophen (Tylenol) 650 mg PRN Q6HRS PRN PO MILD PAIN; Start 12/06/17 at 14 :15; Stop 12/06/17 at 18:51; Status DC Tramadol HCl (Ultram) 50 mg PRN Q6HRS PRN PO MODERATE PAIN; Start 12/06/17 at 14:15; Stop 12/06/17 at 18:51; Status DC Active Scripts Active Fludrocortisone Acetate 0.1 Mg Tablet 0.1 Mg PO DAILY Levemir Flextouch (Insulin Detemir) 300 Units/3 Ml Insuln.pen 30 Units SQ QHS Novolog Flexpen (Insulin Aspart) 300 Units/3 Ml Insuln.pen 10 Units SQ TIDAC Reported Amitriptyline Hcl 50 Mg Tablet 1 Tab PO QHS Lovastatin 20 Mg Tablet 1 Tab PO DAILY Vitals/I & O Vital Sign - Last 24 Hours 12/05/17 12/05/17 12/06/17 12/06/17 20:31 23:00 02:52 07:00 Temp 98.2 97.9 97.8 98.2 97.9 97.8 Pulse 97 101 108 Resp 18 B/P (MAP) 151/94 (113) 136/82 (100) 136/86 (103) Pulse Ox 97 95 96 O2 Delivery Room Air Room Air Room Air Room Air 12/06/17 12/06/17 12/06/17 12/06/17 07:05 07:10 08:00 11:07 Temp 97.9 97.9 Pulse 91 106 98 Resp 18 18 18 B/P (MAP) 102/67 (79) 74/50 (58) 152/85 (107) Pulse Ox 97 97 97 O2 Delivery Room Air Room Air Room Air Room Air 12/06/17 14:42 Temp 97.9 97.9 Pulse 99 Resp 18 B/P (MAP) 160/92 (114) Pulse Ox 100 O2 Delivery Room Air Intake and Output 12/05/17 12/05/17 12/06/17 15:00 23:00 07:00 Intake Total 300 ml 1160 ml 344 ml Output Total 900 ml Balance -600 ml 1160 ml 344 ml VENESSA LOWE MD Dec 06, 2017 20:09
--- NOTE | 2017-12-07 11:21 | PDOC3 ---
Discharge Summary Visit Information Date of Admission: Dec 03, 2017 Date of Discharge: Dec 06, 2017 Admitting Diagnosis Comment: syncope Orthostatic hypotension Labile HTN Labile DM SP DM2 with possible autonomic instability Final Diagnosis Problems Medical Problems: (1) Hyperglycemia due to type 1 diabetes mellitus Status: Acute (2) Orthostatic hypotension Status: Acute (3) Visual changes Status: Acute Brief Hospital Course Allergies Allergies Coded Allergies Type Severity Reaction Last Updated Verified raspberry Allergy Severe CHOKING SENSATION IN THROAT 10/25/15 Yes amoxicillin Allergy Intermediate 10/13/17 Yes aspirin Allergy Intermediate 10/13/17 Yes codeine Allergy Intermediate 10/13/17 Yes ibuprofen Allergy Intermediate 10/13/17 Yes morphine Allergy Intermediate 10/13/17 Yes Vital Signs Vital Signs Date Time Temp Pulse Resp B/P (MAP) Pulse Ox O2 Delivery O2 Flow Rate FiO2 12/06/17 14:42 97.9 99 18 160/92 (114) 100 Room Air 97.9 Lab Results Laboratory Tests Test 12/05/17 16:12 12/05/17 20:54 12/06/17 07:05 12/06/17 07:13 Glucose (Fingerstick) 293 mg/dL (70-99) 251 mg/dL (70-99) 206 mg/dL (70-99) White Blood Count 5.1 x10^3/uL (4.0-11.0) Red Blood Count 4.34 x10^6/uL (3.50-5.40) Hemoglobin 12.0 g/dL (12.0-15.5) Hematocrit 35.7 % (36.0-47.0) Mean Corpuscular Volume 82 fL (79-100) Mean Corpuscular Hemoglobin 28 pg (25-35) Mean Corpuscular Hemoglobin Concent 34 g/dL (31-37) Red Cell Distribution Width 13.0 % (11.5-14.5) Platelet Count 240 x10^3/uL (140-400) Neutrophils (%) (Auto) 48 % (31-73) Lymphocytes (%) (Auto) 39 % (24-48) Monocytes (%) (Auto) 7 % (0-9) Eosinophils (%) (Auto) 5 % (0-3) Basophils (%) (Auto) 1 % (0-3) Neutrophils # (Auto) 2.5 x10^3uL (1.8-7.7) Lymphocytes # (Auto) 2.0 x10^3/uL (1.0-4.8) Monocytes # (Auto) 0.4 x10^3/uL (0.0-1.1) Eosinophils # (Auto) 0.3 x10^3/uL (0.0-0.7) Basophils # (Auto) 0.0 x10^3/uL (0.0-0.2) Sodium Level 141 mmol/L (136-145) Potassium Level 3.4 mmol/L (3.5-5.1) Chloride Level 104 mmol/L (98-107) Carbon Dioxide Level 31 mmol/L (21-32) Anion Gap 6 (6-14) Blood Urea Nitrogen 16 mg/dL (7-20) Creatinine 0.6 mg/dL (0.6-1.0) Estimated GFR (Cockcroft-Gault) 103.8 BUN/Creatinine Ratio 27 (6-20) Glucose Level 230 mg/dL (70-99) Calcium Level 8.8 mg/dL (8.5-10.1) Total Bilirubin 0.2 mg/dL (0.2-1.0) Gamma Glutamyl Transpeptidase 354 U/L (5-55) Aspartate Amino Transf (AST/SGOT) 54 U/L (15-37) Alanine Aminotransferase (ALT/SGPT) 96 U/L (14-59) Alkaline Phosphatase 250 U/L (46-116) Total Protein 6.1 g/dL (6.4-8.2) Albumin 2.6 g/dL (3.4-5.0) Albumin/Globulin Ratio 0.7 (1.0-1.7) Test 12/06/17 10:29 12/06/17 10:49 12/06/17 11:29 12/06/17 16:25 Glucose (Fingerstick) 52 mg/dL (70-99) 57 mg/dL (70-99) 79 mg/dL (70-99) 441 mg/dL (70-99) Laboratory Tests Test 12/06/17 11:29 12/06/17 16:25 Glucose (Fingerstick) 79 mg/dL (70-99) 441 mg/dL (70-99) Brief Hospital Course Ms. Wright is a 57 old female, self-pay, admitted for orthostatic hypotension. She was symptomatic with dizziness. Comanage with neurology and cardiology. Neurology has increased her fludrocortisone. She can afford this. Tilt table testing done by cardiology. But unfortunately patient went home on the night when I was not finisher accordion so I do not know the results of the tilt table. I did not prepare any scripts for fludrocortisone but apparently was discharged overnight. They might have called in the fludrocortisone Rx . Patient is a self-pay, hence no home health benefits. I did write a note yesterday earlier during my visit with her. Please refer to previous note Discharge by Dr. Boyle overnight with notification to me overnight. Discharge Information Condition at Discharge: Improved, Stable Disposition/Orders: D/C to Home Scheduled Amitriptyline Hcl (Amitriptyline Hcl) 50 Mg Tablet, 1 TAB PO QHS, #30 Ref 1 ( Reported) Entered as Reported by: LUCIO OROPEZA RN on 11/04/170 Last Action: Continued on 12/04/17748 by PAT MCCOY Fludrocortisone Acetate (Fludrocortisone Acetate) 0.1 Mg Tablet, 0.1 MG PO DAILY , #30 Prescribed by: PAT MCCOY on 11/08/17 0950 Last Action: Continued on 12/04/17748 by PAT MCCOY Insulin Aspart (Novolog Flexpen) 300 Units/3 Ml Insuln.pen, 10 UNITS SQ TIDAC, # 90 Ref 5 Prescribed by: PAT MCCOY on 11/27/143 Last Action: Converted on 12/04/17748 by PAT MCCOY Insulin Detemir (Levemir Flextouch) 300 Units/3 Ml Insuln.pen, 30 UNITS SQ QHS, #30 Ref 4 Prescribed by: PAT MCCOY on 11/27/14 1413 Last Action: Converted on 12/04/17748 by PAT MCCOY Lovastatin (Lovastatin) 20 Mg Tablet, 1 TAB PO DAILY, #90 Ref 1 (Reported) Entered as Reported by: LUCIO OROPEZA RN on 11/04/17 1319 Last Action: Converted on 12/04/17748 by REGINA TRAN MD Dec 07, 2017 11:21
--- NOTE | 2017-12-08 18:40 | CARD ---
MR#: [id number] Date of Study: 12/06/2017 Referring Physician: CHRISSY Tech: Annie Corbin RN APPROVED REPORT EXAM Tilt Table Pt Alert and oriented x 3, able to transfer wtihout difficulty. Consent signed, pt v/u Attending Nurse: Annie Corbin RN HISTORY The Patient is a 57 year-old female with a history of syncope INDICATIONS pt noted to have PVCs during initial 30 minute flat period PROCEDURE After explaining the risks, benefits, and alternative options, informed consent was obtained from the patient. Base - lineRhythm: SinusHR: 96 bpmBP: 138/07deFaB2 Sat: 97 % Flat11:59Rhythm: Sinus with PVCHR: 94 bpmBP: 141/63soVeL1 Sat: 96 % Flat12:14Rhythm: Sinus with PVCHR: 97 bpmBP: 146/62hlQuN1 Sat: 95 % 80' Tilt12:17Rhythm: SinusHR: 106 bpmBP: 69/84ukTuM1 Sat: 100 % 80' Tilt12:19Rhythm: Sinus TachycardiaHR: 116 bpmBP: 59/01dkWrN2 Sat: 99 % 80' Tilt12:20Rhythm: Sinus TachycardiaHR: 115 bpmBP: 0/7llVtK0 Sat: 98 % 80' Tilt12:22Rhythm: Sinus TachycardiaHR: 114 bpmBP: 74/34yyPsV3 Sat: 99 % 80' Tilt12:24Rhythm: Sinus TachycardiaHR: 114 bpmBP: 67/08gwGbN9 Sat: 100 % 80' Tilt12:27Rhythm: Sinus TachycardiaHR: 118 bpmBP: 74/69emEoD7 Sat: 97 % 80' Tilt12:30Rhythm: Sinus TachycardiaHR: 123 bpmBP: 176/903nnZbL6 Sat: 96 % Flat12:31Rhythm: Sinus TachycardiaHR: 117 bpmBP: 140/55cfAvX7 Sat: 100 % Flat12:33Rhythm: Sinus TachycardiaHR: 113 bpmBP: 174/55wwFaY3 Sat: 100 % Flat12:35Rhythm: Sinus TachycardiaHR: 103 bpmBP: 155/57lbVhJ8 Sat: 93 % Flat12:38Rhythm: SinusHR: 98 bpmBP: 155/83wyYeR2 Sat: 97 % Flat12:41Rhythm: SinusHR: 95 bpmBP: 144/86etLfC1 Sat: 98 % gcygtzy01:45HR: 94 bpmBP: 118/66mmHg COMPLICATIONS None CONCLUSION Pt c/o seeing white 2 minutes into standing, became anxious and tearful as test continued. AT 1233 p t appeared to lose consciousness, she complained of not being able to see and that everything was sarahi te. The blood pressure initially dropped down to 57. He continued to monitor the patient was able to speak but stated that she could not see and was very limp and complaining that she was passing out. T he patient then stated that she was feeling very poorly and her blood pressure jumped to 220/120 BP and Hr stayed in the 120's. Pt returned to lying position and HR and BP returned to baseline. Pt aw reji and alert and returned to room, RN notified. Dr Cox present throughout procedure. To me this patient may have an endocrine problem causing this orthostatic changes more than a neuroca rdiogenic syncope. There was no changes in the heart rate to any significant degree and no significan t bradycardia. RECOMMENDATIONS I would recommend for this patient to have a consultation with an room attendants so that they can ev aluate her and see if we can figure out the etiology of her wide variations in the blood pressure as well as the syncopal episodes. Signed by : Rod Cox MD Electronically Approved : 12/08/2017 18:38:21
[2017-12-09 00:26] LABS: METANEPH UR 14 ug/L (Undefined); TOTAL METANEPHRINES UR 74 ug/24 hr (45-290)
== END 2017-12-06 18:40 | disposition home or self-care (01) | DRG 312 ==
LOC: ER 16:11 → 5 SOUTH 20:00
PROVIDERS: ADMIT Internal Medicine; ATTEND Internal Medicine
DX: I95.1 Orthostatic hypotension (principal); E10.43 Type 1 diabetes mellitus with diabetic autonomic (poly)neuropathy; E10.649 Type 1 diabetes mellitus with hypoglycemia without coma; E10.65 Type 1 diabetes mellitus with hyperglycemia; E78.00 Pure hypercholesterolemia, unspecified; E78.5 Hyperlipidemia, unspecified; E86.0 Dehydration; I10 Essential (primary) hypertension; E10.42 Type 1 diabetes mellitus with diabetic polyneuropathy; E66.9 Obesity, unspecified; F41.9 Anxiety disorder, unspecified; F32.9 Major depressive disorder, single episode, unspecified; M19.90 Unspecified osteoarthritis, unspecified site; I49.3 Ventricular premature depolarization; J44.9 Chronic obstructive pulmonary disease, unspecified; Z79.4 Long term (current) use of insulin; Z83.3 Family history of diabetes mellitus; Z86.73 Personal history of transient ischemic attack (TIA), and cerebral infarction without residual deficits; Z88.0 Allergy status to penicillin; Z88.6 Allergy status to analgesic agent; Z87.440 Personal history of urinary (tract) infections; Z91.018 Allergy to other foods; Z56.0 Unemployment, unspecified; Z68.25 Body mass index [BMI] 25.0-25.9, adult
CPT/HCPCS: 36415; 70450; 71045; 74178; 80048; 80053; 81001; 82010; 82553; 82962; 82977; 83036; 83735; 83880; 84439; 84443; 84484; 85025; 85610; 87086; 93005; 93660; 96374; 96375; J1815; J2060; J7030; Q9966; Q9967; 99285-25

== ENCOUNTER 2018-01-12 09:33 | Emergency (ER) | payer SELFPAY ==
[~2018-01-12] VITALS: Ht 175.3 cm; Wt 65.3 kg
[2018-01-12] MEDS ORDERED: IV NORMAL SALINE 1000ML BAG 1,000 ML IV ONE (10:00)
[2018-01-12 10:02] LABS: BILIRUBIN,URINE NEGATIVE (NEG); CLARITY,URINE CLEAR; COLOR,URINE YELLOW; NITRITE,URINE POSITIVE (NEG); PROTEIN,URINE 30 mg/dL (NEG-TRACE); UROBILINOGEN,URINE 0.2 mg/dL (0.2 mg/dL)
--- NOTE | 2018-01-12 10:02 | PHYS DOC ---
Past Medical History Past Medical History: Anxiety, Depression, Diabetes-Type I, High Cholesterol, MRSA Additional Past Medical Histor: MRSA Past Surgical History: Other Additional Past Surgical Histo: R LEG I&D,L FOOT SURG Alcohol Use: None Drug Use: None Adult General Chief Complaint Chief Complaint: light headed HPI HPI 57-year-old female with a history of diabetes presenting to the emergency department today with lightheadedness when she stands up. she reports eating normally but has been feeling generally weak over the past 2 days. She denies any pain that is new. She has chronic peripheral neuropathy in her legs bilaterally. She denies any fevers or chills at home. She denies cough or abdominal pain. Location generalized. Duration intermittent. Worse with standing up. Review of systems is negative for chest pain shortness of breath abdominal pain nausea vomiting fevers or chills. All other review of systems is negative unless otherwise noted in history of present illness. ED course: 57-year-old female presenting with orthostatic symptoms of lightheadedness when she stands up. On arrival she is afebrile with normal heart rate. Saturating well on room air. On exam she is well-appearing and nontoxic. Abdomen is soft and nontender. She has a few wounds on her legs that are healing. She reports having fallen 2 weeks ago and that's why she has these wounds. The remainder the examination is unremarkable. Chest x-ray blood work EKG and orthostatics obtained along with IV fluids given. Orthostatics show no signs of orthostasis. Workup shows urinary tract infection. Patient is well- appearing here. We will initiate oral Macrobid. I reviewed the patient's previous urine cultures. Typical a susceptible to Macrobid. Follow up with PCP in 2-3 days.The patient has been examined and was not found to have an emergency medical condition. The patient was then discharged home in stable condition to follow up with their primary care physician over the next 2-3 days. They were to return if their symptoms worsened or if they were concerned for any reason. They were also instructed to return to the emergency department if they were unable to get the recommended and appropriate follow- up. [id number] discharge instructions and return precautions were given. Patient's questions were answered to their satisfaction. Patient is comfortable with plan. Review of Systems Review of Systems SEE ABOVE. Current Medications Current Medications Current Medications Medications (Trade) Dose Ordered Sig/[place] Start Time Stop Time Status Last Admin Dose Admin Sodium Chloride 1,000 ml @ 1,000 mls/hr 1X ONCE 01/12/18 10:00 01/12/18 10:59 DC 01/12/18 10:31 1,000 MLS/HR Allergies Allergies Allergies Coded Allergies Type Severity Reaction Last Updated Verified raspberry Allergy Severe CHOKING SENSATION IN THROAT 10/25/15 Yes amoxicillin Allergy Intermediate 10/13/17 Yes aspirin Allergy Intermediate 10/13/17 Yes codeine Allergy Intermediate 10/13/17 Yes ibuprofen Allergy Intermediate 10/13/17 Yes morphine Allergy Intermediate 10/13/17 Yes Physical Exam Physical Exam SEE ABOVE Constitutional: Well developed, well nourished, no acute distress, non-toxic appearance. [] HENT: Normocephalic, atraumatic, bilateral external ears normal, oropharynx moist, no oral exudates, nose normal. [] Eyes: PERRLA, EOMI, conjunctiva normal, no discharge. [] Neck: Normal range of motion, no tenderness, supple, no stridor. [] Cardiovascular:Heart rate regular rhythm, no murmur [] Lungs & Thorax: Bilateral breath sounds clear to auscultation [] Abdomen: Bowel sounds normal, soft, no tenderness, no masses, no pulsatile masses. [] Skin: Warm, dry, no erythema, healing wounds on legs, feet and knees. no fluctuant masses. otherwise no erythema or signs of cellulitis. Back: No tenderness, no CVA tenderness. [] Extremities: No tenderness, no cyanosis, no clubbing, ROM intact, no edema. [] Neurologic: Mental status: Awake oriented and alert x3 Cranial nerves: Extraocular movements intact, eyebrows shani bilaterally, smile symmetric, uvula elevation nl, shoulder shrug intact bilaterally, tongue protrusion normal DTRs: 2+ Sensation: equal and normal in all extremities Strength: 5/5 in upper and lower extremities bilaterally Psychologic: Affect normal, judgement normal, mood normal. [] Current Patient Data Vital Signs Vital Signs Date Time Temp Pulse Resp B/P (MAP) Pulse Ox O2 Delivery O2 Flow Rate FiO2 01/12/18 09:35 98.1 89 14 133/78 (96) 95 Room Air 98.1 Lab Values Laboratory Tests Test 01/12/18 08:50 01/12/18 09:52 01/12/18 10:15 Urine Collection Type Unknown Urine Color Yellow Urine Clarity Clear Urine pH 6.0 Urine Specific [place] 1.025 Urine Protein 30 mg/dL (NEG-TRACE) Urine Glucose (UA) >=1000 mg/dL (NEG) Urine Ketones (Stick) Negative mg/dL (NEG) Urine Blood Negative (NEG) Urine Nitrite Positive (NEG) Urine Bilirubin Negative (NEG) Urine Urobilinogen Dipstick 0.2 mg/dL (0.2 mg/dL) Urine Leukocyte Esterase Trace (NEG) Urine RBC Occ /HPF (0-2) Urine WBC 20-40 /HPF (0-4) Urine Squamous Epithelial Cells Mod /LPF Urine Bacteria Many /HPF (0-FEW) Urine Hyaline Casts Moderate /HPF Urine Test Negative (NEG) Glucose (Fingerstick) 120 mg/dL (70-99) H White Blood Count 9.4 x10^3/uL (4.0-11.0) Red Blood Count 4.43 x10^6/uL (3.50-5.40) Hemoglobin 12.3 g/dL (12.0-15.5) Hematocrit 35.8 % (36.0-47.0) L Mean Corpuscular Volume 81 fL (79-100) Mean Corpuscular Hemoglobin 28 pg (25-35) Mean Corpuscular Hemoglobin Concent 35 g/dL (31-37) Red Cell Distribution Width 12.7 % (11.5-14.5) Platelet Count 285 x10^3/uL (140-400) Neutrophils (%) (Auto) 73 % (31-73) Lymphocytes (%) (Auto) 18 % (24-48) L Monocytes (%) (Auto) 6 % (0-9) Eosinophils (%) (Auto) 2 % (0-3) Basophils (%) (Auto) 1 % (0-3) Neutrophils # (Auto) 6.9 x10^3uL (1.8-7.7) Lymphocytes # (Auto) 1.7 x10^3/uL (1.0-4.8) Monocytes # (Auto) 0.6 x10^3/uL (0.0-1.1) Eosinophils # (Auto) 0.1 x10^3/uL (0.0-0.7) Basophils # (Auto) 0.0 x10^3/uL (0.0-0.2) Sodium Level 138 mmol/L (136-145) Potassium Level 3.8 mmol/L (3.5-5.1) Chloride Level 100 mmol/L (98-107) Carbon Dioxide Level 30 mmol/L (21-32) Anion Gap 8 (6-14) Blood Urea Nitrogen 23 mg/dL (7-20) H Creatinine 0.7 mg/dL (0.6-1.0) Estimated GFR (Cockcroft-Gault) 86.9 Glucose Level 148 mg/dL (70-99) H Calcium Level 10.2 mg/dL (8.5-10.1) H Total Bilirubin 0.2 mg/dL (0.2-1.0) Direct Bilirubin < 0.1 mg/dL (0.0-0.2) Aspartate Amino Transferase (AST) 20 U/L (15-37) Alanine Aminotransferase (ALT) 18 U/L (14-59) Alkaline Phosphatase 89 U/L (46-116) Troponin I Quantitative < 0.017 ng/mL (0.000-0.055) Total Protein 6.7 g/dL (6.4-8.2) Albumin 3.1 g/dL (3.4-5.0) L Lipase 266 U/L (73-393) Laboratory Tests 01/12/18 10:15 Laboratory Tests 01/12/18 10:15 EKG EKG [] Radiology/Procedures Radiology/Procedures [] Course & Med Decision Making Course & Med Decision Making Pertinent Labs and Imaging studies reviewed. (See chart for details) [] Dragon Disclaimer Dragon Disclaimer This electronic medical record was generated, in whole or in part, using a voice recognition dictation system. Departure Departure Impression: Primary Impression: Light headed Disposition: 01 HOME, SELF-CARE Condition: STABLE Referrals: NO PCP (PCP) Patient Instructions: Urinary Tract Infection Additional Instructions: Thank you for allowing us to participate in your care today. Return to the emergency department you have any new or worsening symptoms, or if you are concerned for any reason. Return to emergency department if you have any new or concerning symptoms including but not limited to fever, chills, nausea, vomiting, intractable pain, any new rashes, chest pain, shortness of air , uncontrolled bleeding, difficulty breathing, and/or vision loss. Follow up with your primary care physician within 3 days. Call your Primary Doctor tomorrow and inform them of your visit today. If you do not have a primary care provider we are happy to provide you with a list of our primary care providers contact information. This condition should be evaluated by your primary care physician and any recommended consulting services for continued management within 2-3 days after discharge. If at any time, you are having difficulty getting into your primary care doctor or a specialist, return to the emergency department. Scripts Nitrofurantoin Monohyd/M-Cryst (MACROBID 100 MG CAPSULE) 100 Mg Capsule 1 CAP PO BID, #10 CAP Prov: FAROOQ WISEMAN MD 01/12/18 FAROOQ WISEMAN MD Jan 12, 2018 10:02
[2018-01-12 10:07] LABS: U PREG PATIENT NEGATIVE (NEG)
[2018-01-12 10:17] LABS: BACTERIA,URINE MANY /HPF (0-FEW); HYALINE CASTS, URINE MODERATE /HPF; RBC,URINE OCC /HPF (0-2); SQUAMOUS EPITHELIAL CELL,UR MOD /LPF; WBC,URINE 20-40 /HPF (0-4)
--- NOTE | 2018-01-12 10:20 | RAD ---
CHEST AP ONLY History: Lightheaded off-and-on for 4 months, blacked out today Comparison: December 03, 2017 Findings: Single view of the chest is submitted. There is no infiltrate, pneumothorax, or effusion. The pericardial cardiac silhouette is within normal limits in size. Impression: 1. There is no evidence of acute cardiopulmonary disease. Electronically signed by: Azael Gomez MD (01/12/2018 10:17 AM) [id number]
[2018-01-12 10:29] LABS: BASO % 1 % (0-3); EOS # 0.1 x10^3/uL (0.0-0.7); EOS % 2 % (0-3); HEMATOCRIT 35.8 % (36.0-47.0); HEMOGLOBIN 12.3 g/dL (12.0-15.5); LYMPH # 1.7 x10^3/uL (1.0-4.8); LYMPH % 18 % (24-48); MEAN CORPUSCULAR HEMOGLOBIN 28 pg (25-35); MEAN CORPUSCULAR HGB CONC 35 g/dL (31-37); MEAN CORPUSCULAR VOLUME 81 fL (79-100); MONO # 0.6 x10^3/uL (0.0-1.1); MONO % 6 % (0-9); NEUT # 6.9 x10^3uL (1.8-7.7); NEUT % 73 % (31-73); PLATELET COUNT 285 x10^3/uL (140-400); RED BLOOD COUNT 4.43 x10^6/uL (3.50-5.40); RED CELL DISTRIBUTION WIDTH 12.7 % (11.5-14.5); WHITE BLOOD COUNT 9.4 x10^3/uL (4.0-11.0)
[2018-01-12 10:37] LABS: ANION GAP 8 (6-14); BLOOD UREA NITROGEN 23 mg/dL (7-20); CALCIUM 10.2 mg/dL (8.5-10.1); CARBON DIOXIDE 30 mmol/L (21-32); CHLORIDE 100 mmol/L (98-107); CREATININE 0.7 mg/dL (0.6-1.0); GFR 86.9; GLUCOSE 148 mg/dL (70-99); POTASSIUM 3.8 mmol/L (3.5-5.1); SODIUM 138 mmol/L (136-145)
[2018-01-12 10:43] LABS: ALBUMIN 3.1 g/dL (3.4-5.0); ALK PHOS 89 U/L (46-116); ALT (SGPT) 18 U/L (14-59); AST (SGOT) 20 U/L (15-37); DIRECT BILIRUBIN < 0.1 mg/dL (0.0-0.2); LIPASE 266 U/L (73-393); TOTAL BILIRUBIN 0.2 mg/dL (0.2-1.0); TOTAL PROTEIN 6.7 g/dL (6.4-8.2)
[2018-01-12 11:00] VITALS: BP 125/66
[2018-01-12] MEDS ORDERED: NITR100C62 PO (11:08)
--- NOTE | 2018-01-12 13:03 | EKG ---
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
== END 2018-01-12 11:20 | disposition home or self-care (01) ==
LOC: ER 09:33
DX: R42 Dizziness and giddiness (principal); E10.42 Type 1 diabetes mellitus with diabetic polyneuropathy; F41.9 Anxiety disorder, unspecified; F32.9 Major depressive disorder, single episode, unspecified; E78.00 Pure hypercholesterolemia, unspecified; E10.9 Type 1 diabetes mellitus without complications; Z88.6 Allergy status to analgesic agent; Z88.1 Allergy status to other antibiotic agents; Z88.5 Allergy status to narcotic agent; Z91.018 Allergy to other foods
CPT/HCPCS: 36415; 71045; 80048; 80076; 81001; 81025; 82962; 83690; 84484; 85025; 93005; 96360; 99285; J7030

== ENCOUNTER 2018-01-29 13:12 | Emergency (ER) | payer SELFPAY ==
[~2018-01-29] VITALS: Ht 175.3 cm; Wt 58.1 kg
[~2018-01-29 13:12] MED LIST changes: +NITR100C62 PO
[2018-01-29 13:50] LABS: BILIRUBIN,URINE NEGATIVE (NEG); CLARITY,URINE CLOUDY; COLOR,URINE YELLOW; NITRITE,URINE NEGATIVE (NEG); PH,URINE 6.5; PROTEIN,URINE 100 mg/dL (NEG-TRACE); UROBILINOGEN,URINE 0.2 mg/dL (0.2 mg/dL)
[2018-01-29 13:59] LABS: BACTERIA,URINE MANY /HPF (0-FEW); SQUAMOUS EPITHELIAL CELL,UR OCC /LPF; WBC,URINE TNTC /HPF (0-4)
[2018-01-29] MEDS ORDERED: MECLIZINE HCL 12.5 MG TABLET. PO ONE (14:00)
[2018-01-29] MEDS ORDERED: IV NORMAL SALINE 1000ML BAG 1,000 ML IV ONE (14:00)
[2018-01-29] MEDS ORDERED: ONDANSETRON PF 4 MG/2 ML VIAL. IV ONE (14:00)
[2018-01-29 14:05] LABS: BASO % 1 % (0-3); EOS # 0.1 x10^3/uL (0.0-0.7); EOS % 2 % (0-3); HEMATOCRIT 36.8 % (36.0-47.0); HEMOGLOBIN 12.6 g/dL (12.0-15.5); LYMPH # 2.1 x10^3/uL (1.0-4.8); LYMPH % 26 % (24-48); MEAN CORPUSCULAR HEMOGLOBIN 28 pg (25-35); MEAN CORPUSCULAR HGB CONC 34 g/dL (31-37); MEAN CORPUSCULAR VOLUME 80 fL (79-100); MONO # 0.6 x10^3/uL (0.0-1.1); MONO % 7 % (0-9); NEUT # 5.1 x10^3uL (1.8-7.7); NEUT % 65 % (31-73); PLATELET COUNT 252 x10^3/uL (140-400); RED BLOOD COUNT 4.58 x10^6/uL (3.50-5.40); RED CELL DISTRIBUTION WIDTH 12.7 % (11.5-14.5); WHITE BLOOD COUNT 7.9 x10^3/uL (4.0-11.0)
[2018-01-29 14:15] LABS: PROTHROMBIN TIME PATIENT 13.2 SEC (11.7-14.0)
[2018-01-29 14:17] VITALS: BP 115/70
[2018-01-29 14:18] LABS: CALCIUM 9.8 mg/dL (8.5-10.1); CREATININE 0.8 mg/dL (0.6-1.0); GFR 74.5; POTASSIUM 3.3 mmol/L (3.5-5.1)
--- NOTE | 2018-01-29 14:19 | RAD ---
EXAM: CHEST 1 VIEW. HISTORY: Dizziness, headache, infection. COMPARISON: None. FINDINGS: A frontal view of the chest is obtained. There are no confluent infiltrates. There is no pneumothorax or pleural effusion. The heart is not enlarged. Carotid atherosclerotic calcifications are noted. IMPRESSION: 1. No confluent infiltrates. Electronically signed by: Keith Nunez MD (01/29/2018 2:16 PM) [facility]
[2018-01-29 14:23] LABS: ALBUMIN 3.2 g/dL (3.4-5.0); ALBUMIN/GLOBULIN RATIO 0.8 (1.0-1.7); MAGNESIUM 1.6 mg/dL (1.8-2.4); TOTAL BILIRUBIN 0.2 mg/dL (0.2-1.0); TOTAL PROTEIN 7.3 g/dL (6.4-8.2)
--- NOTE | 2018-01-29 14:44 | PHYS DOC ---
Past Medical History Past Medical History: Diabetes-Type I, Hypertension, MRSA Additional Past Medical Histor: MRSA Past Surgical History: Other Additional Past Surgical Histo: R LEG I&D,L FOOT SURG Alcohol Use: None Drug Use: None Adult General Chief Complaint Chief Complaint: DIZZY/LIGHT HEADED HPI HPI Patient is a 57 year old female with history of diabetes, hypertension, who presents today complaining of dizziness that has been going on since September 2017 as well as UTI. Patient states she's been seen in the emergency room multiple times for her dizziness and UTI. She states she's been admitted and worked up before. She states they could not find any acute cause for her dizziness. She states she feels the antibiotics she has been taking for her UTI is not clearing the infection. She states she last took nitrofurantoin around December 2017. She states she still has burning when she voids. Patient denies any fever nausea vomiting. Denies any chest pain or shortness of breath. She states the dizziness is intermittent and occurs any time nothing in particular makes it better or worse. Patient states she cannot follow-up with neurologist because she does not have insurance and has no funds to pay hernandez. She states she is currently on disability. Review of Systems Review of Systems Constitutional: Denies fever or chills [] Eyes: Denies change in visual acuity, redness, or eye pain [] HENT: Denies nasal congestion or sore throat [] Respiratory: Denies cough or shortness of breath [] Cardiovascular: No additional information not addressed in HPI [] GI: Denies abdominal pain, nausea, vomiting, bloody stools or diarrhea [] : Reports dysuria, denies hematuria [] Musculoskeletal: Denies back pain or joint pain [] Integument: Denies rash or skin lesions [] Neurologic: Reports dizziness. Denies headache, focal weakness or sensory changes [] All other systems were reviewed and found to be within normal limits, except as documented in this note. Current Medications Current Medications Current Medications Medications (Trade) Dose Ordered Sig/[place] Start Time Stop Time Status Last Admin Dose Admin Dextrose (Dextrose 50%-Water Syringe) 25 gm STK-MED ONCE 01/29/18 14:53 01/29/18 14:54 DC Levofloxacin/ Dextrose 100 ml @ 100 mls/hr 1X ONCE 01/29/18 14:30 01/29/18 15:29 DC 01/29/18 14:30 100 MLS/HR Meclizine HCl (Antivert) 25 mg 1X ONCE 01/29/18 14:00 01/29/18 14:01 DC 01/29/18 14:10 25 MG Ondansetron HCl (Zofran) 4 mg 1X ONCE 01/29/18 14:00 01/29/18 14:01 DC 01/29/18 14:11 4 MG Sodium Chloride 1,000 ml @ 1,000 mls/hr 1X ONCE 01/29/18 14:00 01/29/18 14:59 DC 01/29/18 14:00 1,000 MLS/HR Allergies Allergies Allergies Coded Allergies Type Severity Reaction Last Updated Verified raspberry Allergy Severe CHOKING SENSATION IN THROAT 10/25/15 Yes amoxicillin Allergy Intermediate 10/13/17 Yes aspirin Allergy Intermediate 10/13/17 Yes codeine Allergy Intermediate 10/13/17 Yes ibuprofen Allergy Intermediate 10/13/17 Yes morphine Allergy Intermediate 10/13/17 Yes Physical Exam Physical Exam Constitutional: Well developed, well nourished, no acute distress, non-toxic appearance. [] HENT: Normocephalic, atraumatic, bilateral external ears normal, oropharynx moist, no oral exudates, nose normal. [] Eyes: PERRLA, EOMI, conjunctiva normal, no discharge. [] Neck: Normal range of motion, no tenderness, supple, no stridor. [] Cardiovascular:Heart rate regular rhythm, no murmur [] Lungs & Thorax: Bilateral breath sounds clear to auscultation [] Abdomen: Bowel sounds normal, soft, no tenderness, no masses, no pulsatile masses. [] Skin: Warm, dry, no erythema, no rash. [] Back: No tenderness, no CVA tenderness. [] Extremities: No tenderness, no cyanosis, no clubbing, ROM intact, no edema. [] Neurologic: Alert and oriented X 3, normal motor function, normal sensory function, no focal deficits noted. [] Psychologic: Affect normal, judgement normal, mood normal. [] Current Patient Data Vital Signs Vital Signs Date Time Temp Pulse Resp B/P (MAP) Pulse Ox O2 Delivery O2 Flow Rate FiO2 01/29/18 14:17 88 16 98 01/29/18 13:26 97.5 115/70 (85) Room Air 97.5 Lab Values Laboratory Tests Test 01/29/18 13:24 01/29/18 13:36 01/29/18 13:55 01/29/18 14:52 Urine Collection Type Void Urine Color Yellow Urine Clarity Cloudy Urine pH 6.5 Urine Specific [place] >=1.030 Urine Protein 100 mg/dL (NEG-TRACE) Urine Glucose (UA) >=1000 mg/dL (NEG) Urine Ketones (Stick) Trace mg/dL (NEG) Urine Blood Small (NEG) Urine Nitrite Negative (NEG) Urine Bilirubin Negative (NEG) Urine Urobilinogen Dipstick 0.2 mg/dL (0.2 mg/dL) Urine Leukocyte Esterase Moderate (NEG) Urine RBC 3-5 /HPF (0-2) Urine WBC Tntc /HPF (0-4) Urine Squamous Epithelial Cells Occ /LPF Urine Bacteria Many /HPF (0-FEW) Urine Mucus Slight /LPF Glucose (Fingerstick) 124 mg/dL (70-99) H 19 mg/dL (70-99) *L White Blood Count 7.9 x10^3/uL (4.0-11.0) Red Blood Count 4.58 x10^6/uL (3.50-5.40) Hemoglobin 12.6 g/dL (12.0-15.5) Hematocrit 36.8 % (36.0-47.0) Mean Corpuscular Volume 80 fL (79-100) Mean Corpuscular Hemoglobin 28 pg (25-35) Mean Corpuscular Hemoglobin Concent 34 g/dL (31-37) Red Cell Distribution Width 12.7 % (11.5-14.5) Platelet Count 252 x10^3/uL (140-400) Neutrophils (%) (Auto) 65 % (31-73) Lymphocytes (%) (Auto) 26 % (24-48) Monocytes (%) (Auto) 7 % (0-9) Eosinophils (%) (Auto) 2 % (0-3) Basophils (%) (Auto) 1 % (0-3) Neutrophils # (Auto) 5.1 x10^3uL (1.8-7.7) Lymphocytes # (Auto) 2.1 x10^3/uL (1.0-4.8) Monocytes # (Auto) 0.6 x10^3/uL (0.0-1.1) Eosinophils # (Auto) 0.1 x10^3/uL (0.0-0.7) Basophils # (Auto) 0.0 x10^3/uL (0.0-0.2) Prothrombin Time 13.2 SEC (11.7-14.0) Prothrombin Time INR 1.1 (0.8-1.1) PTT 32 SEC (24-38) Sodium Level 145 mmol/L (136-145) Potassium Level 3.3 mmol/L (3.5-5.1) L Chloride Level 104 mmol/L (98-107) Carbon Dioxide Level 33 mmol/L (21-32) H Anion Gap 8 (6-14) Blood Urea Nitrogen 25 mg/dL (7-20) H Creatinine 0.8 mg/dL (0.6-1.0) Estimated GFR (Cockcroft-Gault) 74.5 BUN/Creatinine Ratio 31 (6-20) H Glucose Level 112 mg/dL (70-99) H Calcium Level 9.8 mg/dL (8.5-10.1) Magnesium Level 1.6 mg/dL (1.8-2.4) L Total Bilirubin 0.2 mg/dL (0.2-1.0) Aspartate Amino Transferase (AST) 14 U/L (15-37) L Alanine Aminotransferase (ALT) 19 U/L (14-59) Alkaline Phosphatase 101 U/L (46-116) Troponin I Quantitative < 0.017 ng/mL (0.000-0.055) DL-Pjc-D-Type Natriuretic Peptide 376 pg/mL (0-124) H Total Protein 7.3 g/dL (6.4-8.2) Albumin 3.2 g/dL (3.4-5.0) L Albumin/Globulin Ratio 0.8 (1.0-1.7) L Thyroid Stimulating Hormone (TSH) 0.042 uIU/mL (0.358-3.74) L Ethyl Alcohol Level < 10 mg/dL (0-10) Test 01/29/18 15:24 Glucose (Fingerstick) 196 mg/dL (70-99) H Laboratory Tests 01/29/18 13:55 Laboratory Tests 01/29/18 13:55 EKG EKG 13:[address] Caldera sinus rhythm, HR88 no STEMI[] Radiology/Procedures Radiology/Procedures []PROCEDURE: PORTABLE CHEST 1V EXAM: CHEST 1 VIEW. HISTORY: Dizziness, headache, infection. COMPARISON: None. FINDINGS: A frontal view of the chest is obtained. There are no confluent infiltrates. There is no pneumothorax or pleural effusion. The heart is not enlarged. Carotid atherosclerotic calcifications are noted. IMPRESSION: 1. No confluent infiltrates. Electronically signed by: Keith Nunez MD (01/29/2018 2:16 PM) [facility] DICTATED and SIGNED BY: JHONATAN NUNEZ MD DATE: 01/29/18 1417 Course & Med Decision Making Course & Med Decision Making Pertinent Labs and Imaging studies reviewed. (See chart for details) This is a 57-year-old female patient presenting to the ED today complaining of dizziness that has been going on since September 2017. Patient has been worked up for this multiple times. He is supposed follow up with a neurologist but does not have the finances to do it, neither does she have medical insurance. Currently on disability per her statement. She is also complaining of chronic UTIs since September. Last time she was seen in December she was discharged on nitrofurantoin. EKG, chest x-ray with no acute findings. CBC with a WBC that is normal, CMP would not acute findings. Urine analysis is noted for UTI. Urine culture done in December shows her susceptible to Levaquin, one dose was given in the ED and prescription given for home use, also given NS. 14:55 Informed by nursing staff patient has a glucose of 17 hx of DM I. 1 amp of D 50 ordered. Meal tray provided, blood glucose 196. Feeling better d/c with Levaquin and meclizine. F/u with PCP next week Dragon Disclaimer Jennifer Disclaimer This electronic medical record was generated, in whole or in part, using a voice recognition dictation system. Departure Departure Impression: Primary Impression: Urinary tract infection Additional Impressions: Hypoglycemia Dizziness Disposition: HOME, SELF-CARE Condition: STABLE Referrals: UNKNOWN PCP NAME (PCP) Follow-up next week ISMA WIN MD follow up next week Patient Instructions: Dizziness, Tgoq-es-Phat, Hypoglycemia (Low Blood Sugar), Urinary Tract Infection Additional Instructions: You were seen for urinary tract infection and dizziness. Please complete your antibiotics. Take Meclizine as needed for dizziness. Follow up with your primary care doctor next week. We also provided you a urologist for follow up. Complete your antibiotics. Scripts Levofloxacin (LEVAQUIN) 500 Mg Tablet 1 TAB PO DAILY, #7 TAB Prov: SHARONDA DIAZ APRN 01/29/18 Meclizine Hcl (MECLIZINE HCL) 25 Mg Tablet 1 TAB PO TID PRN for DIZZINESS, #30 TAB Prov: SHARONDA DIAZ APRN 01/29/18 Problem Qualifiers Primary Impression: Urinary tract infection Urinary tract infection type: site unspecified Hematuria presence: without hematuria Qualified Codes: N39.0 - Urinary tract infection, site not specified SHARONDA DIAZ APRN Jan 29, 2018 14:44
[2018-01-29] MEDS ORDERED: DEXTROSE 50% 25 GM / 50ML DISP.SYRIN. IV ONE ×2 (14:53→15:45)
[2018-01-29] MEDS ORDERED: LEVO500T59 PO (15:41)
[2018-01-29] MEDS ORDERED: MECL25TA3 PO (15:41)
[2018-01-29 15:58] LABS: AMPHETAMINE/METHAMPHETAMINE NEG (NEG); BARBITURATES NEG (NEG); BENZODIAZEPINES NEG (NEG); CANNABINOIDS NEG (NEG); COCAINE NEG (NEG); METHADONE NEG (NEG); OPIATES NEG (NEG); PHENCYCLIDINE NEG (NEG)
--- NOTE | 2018-01-30 12:52 | EKG ---
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
== END 2018-01-29 16:24 | disposition home or self-care (01) ==
LOC: ER 13:12
DX: E10.649 Type 1 diabetes mellitus with hypoglycemia without coma (principal); N39.0 Urinary tract infection, site not specified; R42 Dizziness and giddiness; I10 Essential (primary) hypertension; Z88.6 Allergy status to analgesic agent; Z88.5 Allergy status to narcotic agent; Z88.1 Allergy status to other antibiotic agents; Z91.018 Allergy to other foods
CPT/HCPCS: 36415; 71045; 80053; 80307; 81001; 82962; 83735; 83880; 84443; 84484; 85025; 85610; 85730; 87086; 93005; 96361; 96365; 96375; 99285; G0480; J1956; J2405; J7030; J8597; J7042; G0479

== ENCOUNTER 2018-03-21 20:22 | Emergency (ER) | payer SELFPAY ==
[~2018-03-21] VITALS: Ht 172.7 cm; Wt 56.9 kg
[~2018-03-21 20:22] MED LIST changes: +LEVO500T59 PO; +MECL25TA3 PO
--- NOTE | 2018-03-21 21:13 | PHYS DOC ---
Past Medical History Past Medical History: Diabetes-Type I, Hypertension, MRSA Additional Past Medical Histor: MRSA Past Surgical History: Other Additional Past Surgical Histo: R LEG I&D,L FOOT SURG Alcohol Use: None Drug Use: None Adult General Chief Complaint Chief Complaint: DIZZY/LIGHT HEADED HPI HPI 57-year-old female presents to ER via POV for complaints of dizziness and chest pain which started at 7 AM this morning while at work. Patient reports chest pain is midsternal denies radiation into neck, back, or upper extremities. Patient denies any shortness of air or vomiting. Patient reports she has had intermittent nausea when her dizziness worsens. Patient reports dizziness increases with repositioning. She reports she did take Dramamine at noon with minimal relief in symptoms. She reports she started a new medication for thyroid on Wednesday- uncertain of name. Accu-Chek 280. Orthostatic BP/HR obtained by this provider during initial exam Supine BP 122/74 HR 88 Sitting BP 122/74 HR 89 Standing BP 98/57 HR 98 w/pt having c/o increased dizziness during position change from sitting to standing Review of Systems Review of Systems Constitutional: Denies fever or chills [] Eyes: Denies change in visual acuity, redness, or eye pain [] HENT: Denies nasal congestion or sore throat [] Respiratory: Denies cough or shortness of breath [] Cardiovascular: No additional information not addressed in HPI [] GI: Denies abdominal pain, nausea, vomiting, bloody stools or diarrhea [] : Denies dysuria or hematuria [] Musculoskeletal: Denies back pain or joint pain [] Integument: Denies rash or skin lesions [] Neurologic: Denies headache, focal weakness or sensory changes [] Endocrine: Denies polyuria or polydipsia [] All other systems were reviewed and found to be within normal limits, except as documented in this note. Current Medications Current Medications Current Medications Medications (Trade) Dose Ordered Sig/[place] Start Time Stop Time Status Last Admin Dose Admin Acetaminophen (Tylenol) 650 mg 1X ONCE 03/21/18 23:30 03/21/18 23:31 DC 03/21/18 23:27 650 MG Meclizine HCl (Antivert) 25 mg 1X ONCE 03/21/18 23:30 03/21/18 23:31 DC 03/21/18 23:26 25 MG Ondansetron HCl (Zofran) 4 mg 1X ONCE 03/21/18 23:45 03/21/18 23:46 DC 03/21/18 23:27 4 MG Sodium Chloride 1,000 ml @ 1,000 mls/hr 1X ONCE 03/21/18 21:30 03/21/18 22:29 DC 03/21/18 21:30 1,000 MLS/HR Allergies Allergies Allergies Coded Allergies Type Severity Reaction Last Updated Verified raspberry Allergy Severe CHOKING SENSATION IN THROAT 10/25/15 Yes amoxicillin Allergy Intermediate 10/13/17 Yes aspirin Allergy Intermediate 10/13/17 Yes codeine Allergy Intermediate 10/13/17 Yes ibuprofen Allergy Intermediate 10/13/17 Yes morphine Allergy Intermediate 10/13/17 Yes Physical Exam Physical Exam Constitutional: Well developed, well nourished, no acute distress, non-toxic appearance. [] HENT: Normocephalic, atraumatic, bilateral external ears normal, oropharynx moist, no oral exudates, nose normal. [] Eyes: PERRLA, EOMI, conjunctiva normal, no discharge. [] Neck: Normal range of motion, no tenderness, supple, no stridor. [] Cardiovascular:Heart rate regular rhythm, no murmur [] Lungs & Thorax: Bilateral breath sounds clear to auscultation [] Abdomen: Bowel sounds normal, soft, no tenderness, no masses, no pulsatile masses. [] Skin: Warm, dry, no erythema, no rash. [] Back: No tenderness, no CVA tenderness. [] Extremities: No tenderness, no cyanosis, no clubbing, ROM intact, no edema. [] Neurologic: Alert and oriented X 3, normal motor function, normal sensory function, no focal deficits noted. [] Psychologic: Affect normal, judgement normal, mood normal. [] Current Patient Data Vital Signs Vital Signs Date Time Temp Pulse Resp B/P (MAP) Pulse Ox O2 Delivery O2 Flow Rate FiO2 03/21/18 23:27 86 16 98 03/21/18 20:42 98.3 131/72 (91) Room Air 98.3 Lab Values Laboratory Tests Test 03/21/18 20:46 03/21/18 21:20 03/21/18 23:15 Glucose (Fingerstick) 280 mg/dL (70-99) H White Blood Count 8.4 x10^3/uL (4.0-11.0) Red Blood Count 4.43 x10^6/uL (3.50-5.40) Hemoglobin 12.1 g/dL (12.0-15.5) Hematocrit 35.7 % (36.0-47.0) L Mean Corpuscular Volume 81 fL (79-100) Mean Corpuscular Hemoglobin 27 pg (25-35) Mean Corpuscular Hemoglobin Concent 34 g/dL (31-37) Red Cell Distribution Width 13.0 % (11.5-14.5) Platelet Count 278 x10^3/uL (140-400) Neutrophils (%) (Auto) 63 % (31-73) Lymphocytes (%) (Auto) 27 % (24-48) Monocytes (%) (Auto) 7 % (0-9) Eosinophils (%) (Auto) 2 % (0-3) Basophils (%) (Auto) 1 % (0-3) Neutrophils # (Auto) 5.3 x10^3uL (1.8-7.7) Lymphocytes # (Auto) 2.3 x10^3/uL (1.0-4.8) Monocytes # (Auto) 0.6 x10^3/uL (0.0-1.1) Eosinophils # (Auto) 0.2 x10^3/uL (0.0-0.7) Basophils # (Auto) 0.0 x10^3/uL (0.0-0.2) Sodium Level 135 mmol/L (136-145) L Potassium Level 4.3 mmol/L (3.5-5.1) Chloride Level 98 mmol/L (98-107) Carbon Dioxide Level 30 mmol/L (21-32) Anion Gap 7 (6-14) Blood Urea Nitrogen 37 mg/dL (7-20) H Creatinine 1.1 mg/dL (0.6-1.0) H Estimated GFR (Cockcroft-Gault) 51.6 Glucose Level 289 mg/dL (70-99) H Calcium Level 9.8 mg/dL (8.5-10.1) Troponin I Quantitative < 0.017 ng/mL (0.000-0.055) Urine Collection Type Unknown Urine Color Yellow Urine Clarity Clear Urine pH 5.5 Urine Specific [place] 1.025 Urine Protein Negative mg/dL (NEG-TRACE) Urine Glucose (UA) >=1000 mg/dL (NEG) Urine Ketones (Stick) Negative mg/dL (NEG) Urine Blood Trace (NEG) Urine Nitrite Negative (NEG) Urine Bilirubin Negative (NEG) Urine Urobilinogen Dipstick 0.2 mg/dL (0.2 mg/dL) Urine Leukocyte Esterase Negative (NEG) Urine RBC Occ /HPF (0-2) Urine WBC 5-10 /HPF (0-4) Urine Squamous Epithelial Cells Many /LPF Urine Bacteria Few /HPF (0-FEW) Urine Mucus Slight /LPF Urine Yeast Present /HPF Laboratory Tests 03/21/18 21:20 Laboratory Tests 03/21/18 21:20 EKG EKG EKG obtained 03/21/18 at 2057 Interpreted by ER physician Sinus rhythm Rate 88 No STEMI Radiology/Procedures Radiology/Procedures [] Course & Med Decision Making Course & Med Decision Making Pertinent Labs and Imaging studies reviewed. (See chart for details) 1115: Discussed test results with pt and her husb. EKG with no acute ST elevation/STEMI and troponin <0.017. Pt remains A&Ox3 with no focal neuro deficits. Pt is being assisted to bathroom for UA specimen. Pt visualized in willis with RN stand-by. Pt reports she typically walks with cane so feels unsteady without the cane. She is walking with steady gait. 2350: Discussed UA results with patient and her . Patient is sitting up in bed eating juaquin crackers and drinking water. She is in no visible distress remains nontoxic in appearance with clear speech. Patient is alert and oriented no focal neuro deficits. Patient received IV fluids while in the ER along with dose of meclizine and Tylenol for pain. She has had some improvements in symptoms recur patient has had previous episodes of vertigo and does have Dramamine at home. Discussed all test results again. Discussed home discharge plans with patient's vital signs stable and some improvement in symptoms. Test results similar to previous results in patient's records. Discussed plans for patient to call tomorrow and set up follow-up appointment with primary care physician for this week for reevaluation. Patient comfortable with home discharge plan as discussed. Education provided on signs and symptoms to return to ER for and discharge instructions were discussed. Dragon Disclaimer Dragon Disclaimer This electronic medical record was generated, in whole or in part, using a voice recognition dictation system. Departure Departure Impression: Primary Impression: Dizziness Additional Impressions: Chest pain Orthostatic dizziness Disposition: 01 HOME, SELF-CARE Condition: STABLE Referrals: UNKNOWN PCP NAME (PCP) Patient Instructions: Chest Pain (Nonspecific), Dizziness, Orthostatic Hypotension Additional Instructions: Continue home medications as previously prescribed. As discussed make sure you are eating well-balanced meals and drinking plenty of fluids. Call tomorrow and schedule follow-up appointment with your primary care physician for reevaluation this week. As discussed use your walker for stability to avoid falls while experiencing dizziness. Problem Qualifiers GABRIEL RAYMOND APRN Mar 21, 2018 21:13
[2018-03-21] MEDS ORDERED: IV NORMAL SALINE 1000ML BAG 1,000 ML IV ONE (21:30)
[2018-03-21 21:33] LABS: BASO % 1 % (0-3); EOS # 0.2 x10^3/uL (0.0-0.7); EOS % 2 % (0-3); HEMATOCRIT 35.7 % (36.0-47.0); HEMOGLOBIN 12.1 g/dL (12.0-15.5); LYMPH # 2.3 x10^3/uL (1.0-4.8); LYMPH % 27 % (24-48); MEAN CORPUSCULAR HEMOGLOBIN 27 pg (25-35); MEAN CORPUSCULAR HGB CONC 34 g/dL (31-37); MEAN CORPUSCULAR VOLUME 81 fL (79-100); MONO # 0.6 x10^3/uL (0.0-1.1); MONO % 7 % (0-9); NEUT # 5.3 x10^3uL (1.8-7.7); NEUT % 63 % (31-73); PLATELET COUNT 278 x10^3/uL (140-400); RED BLOOD COUNT 4.43 x10^6/uL (3.50-5.40); WHITE BLOOD COUNT 8.4 x10^3/uL (4.0-11.0)
[2018-03-21 21:44] LABS: CALCIUM 9.8 mg/dL (8.5-10.1); CREATININE 1.1 mg/dL (0.6-1.0); GFR 51.6; POTASSIUM 4.3 mmol/L (3.5-5.1)
[2018-03-21] MEDS ORDERED: MECLIZINE HCL 12.5 MG TABLET. PO ONE ×2 (23:00→23:30)
[2018-03-21 23:22] LABS: BILIRUBIN,URINE NEGATIVE (NEG); CLARITY,URINE CLEAR; COLOR,URINE YELLOW; NITRITE,URINE NEGATIVE (NEG); PH,URINE 5.5; PROTEIN,URINE NEGATIVE (NEG-TRACE); UROBILINOGEN,URINE 0.2 mg/dL (0.2 mg/dL)
[2018-03-21 23:27] VITALS: BP 110/68
[2018-03-21 23:30] LABS: BACTERIA,URINE FEW /HPF (0-FEW); RBC,URINE OCC /HPF (0-2); SQUAMOUS EPITHELIAL CELL,UR MANY /LPF; YEAST,URINE PRESENT /HPF
[2018-03-21] MEDS ORDERED: ACETAMINOPHEN 325 MG TABLET. PO ONE (23:30)
[2018-03-21] MEDS ORDERED: ONDANSETRON PF 4 MG/2 ML VIAL. IV ONE (23:45)
--- NOTE | 2018-03-22 00:18 | RAD ---
AP portable chest radiograph 03/21/2018 Clinical History: Nausea and syncope and dizziness. Chest pain.. An AP erect portable digital radiograph of the chest was obtained. Comparison study is dated 01/29/2018. The cardiac silhouette is borderline enlarged. The thoracic aorta is mildly tortuous. No acute pulmonary infiltrate is seen. No pleural effusion or pneumothorax is noted. The osseous structures are unchanged. IMPRESSION: No acute abnormality is seen. Electronically signed by: Wale Tyler MD (03/22/2018 12:15 AM) [facility]
--- NOTE | 2018-03-22 02:45 | EKG ---
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 QRS(T) CONTOUR ABNORMALITY CONSISTENT WITH PAST ANTEROSEPTAL INFARCT Electronically Signed On 03-23-2018 9:14:38 [employer] by Jim Bach
== END 2018-03-22 00:58 | disposition home or self-care (01) ==
LOC: ER 20:22
DX: R42 Dizziness and giddiness (principal); R07.2 Precordial pain; I10 Essential (primary) hypertension; E10.9 Type 1 diabetes mellitus without complications; Z88.6 Allergy status to analgesic agent; Z88.1 Allergy status to other antibiotic agents; Z88.5 Allergy status to narcotic agent; Z91.018 Allergy to other foods
CPT/HCPCS: 36415; 71045; 80048; 81001; 82962; 84484; 85025; 93005; 96361; 96374; 99284; J2405; J7030; J8597; 87086

== ENCOUNTER → 2018-05-04 | Outpatient (CLI) | payer OTHER ==
[~2018-05-04] MED LIST changes: +ACETAMINOPHEN PM PO; +AMIT100T PO; +CEPH-264 PO; +DOXY25TA42 PO; +GABA300C18 PO; +HUM100VI5 SQ; +HYDR-2761 PO; +HYDR-3164 PO; +INSU100I32 SQ; +LEVO100T PO; +LOVA10TA PO; +METH5TAB6 PO; +MIDO10TA PO; +NITR100C PO; +PRED20TA PO
--- NOTE | 2018-05-04 17:24 | KCIC ---
Examination: Ultrasound thyroid HISTORY: History of hyperthyroidism, abnormal CT scan COMPARISON: CT from 01/02/2018 FINDINGS: The right lobe of thyroid gland measures 6.2 x 2.2 x 1.9 cm. The left lobe of the thyroid gland measures 9.0 x 3.0 x 2.1 cm. In the right lobe of the thyroid gland, there is a 2.9 x 2 0.1 to 1.5 cm heterogeneous nodule containing vascular flow within. Smaller subcentimeter nodules identified in the right lobe of the thyroid gland. There is a 1.8 cm hyperechoic nodule identified in the left isthmus. There is a large heterogeneous nodule identified in the left lobe of the thyroid gland measuring 4.5 x 3.5 x 3.3 cm. Small subcentimeter nodules identified in the left lobe of thyroid gland. IMPRESSION: 1. Multiple enlarged thyroid the largest measuring 4.5 cm in the left lobe of the thyroid gland and 2.9 cm in the right lobe of thyroid gland. There is a 1.8 cm hyperechoic nodule identified in the left stenosis. Consider follow-up nuclear medicine thyroid uptake and scan for further evaluation given clinical history of hyperthyroidism. Fine-needle aspiration of these nodules may also be considered. Electronically signed by: Ananth Arevalo MD (05/04/2018 5:20 PM) [facility]
== END | disposition home or self-care (01) ==
LOC: KCIC US 14:29
DX: E04.2 Nontoxic multinodular goiter (principal)
CPT/HCPCS: 76536

== ENCOUNTER 2018-05-15 16:38 | Emergency (ER) | payer OTHER ==
[~2018-05-15] VITALS: Ht 175.3 cm; Wt 59.0 kg
[~2018-05-15 16:38] MED LIST changes: -ACETAMINOPHEN PM PO; -AMIT100T PO; -CEPH-264 PO; -DOXY25TA42 PO; -GABA300C18 PO; -HUM100VI5 SQ; -HYDR-2761 PO; -HYDR-3164 PO; -INSU100I32 SQ; -LEVO100T PO; -LOVA10TA PO; -METH5TAB6 PO; -MIDO10TA PO; -NITR100C PO; -PRED20TA PO
[2018-05-15] MEDS ORDERED: ONDANSETRON ODT 4 MG TAB.RAPDIS. PO ONE (17:00)
[2018-05-15] MEDS ORDERED: METHOCARBAMOL 750 MG TABLET PO ONE (17:00)
[2018-05-15] MEDS ORDERED: LIDOCAINE (700MG/PATCH) PATCH. TD SCH (17:00)
[2018-05-15] MEDS ORDERED: predniSONE 10 MG TABLET PO ONE (17:00)
--- NOTE | 2018-05-15 17:04 | PHYS DOC ---
Past Medical History Past Medical History: Diabetes-Type II, Hypotension, MRSA Additional Past Medical Histor: MRSA Past Surgical History: Other Additional Past Surgical Histo: R LEG I&D,L FOOT SURG Alcohol Use: None Drug Use: None Adult General Chief Complaint Chief Complaint: LOWER BACK PAIN OR INJURY HPI HPI 58 y/o female presents to ER via POV for complaints of right lower back pain radiating into her buttock and leg. Patient states pain started last night she denies any injury or falls. Patient denies any recent travel. Patient denies swelling in extremities. Patient denies incontinence of bowel or bladder, urinary symptoms, change in bowel pattern, or saddle anesthesia. Patient reports she took her gabapentin this morning denies any other indications for pain-patient reporting she has chronic pain issues. Patient reports pain has started increasing through the morning so she has had intermittent nausea when pain increases. Patient denies numbness or tingling in bilateral lower extremities. Patient states she has been able to walk without assist or assistive devices. Review of Systems Review of Systems Constitutional: Denies fever or chills [] Respiratory: Denies cough or shortness of breath [] Cardiovascular: Denies CP GI: Denies abdominal pain, bloody stools or diarrhea. Denies saddle anesthesia. Reports pain has increased so she's had intermittent nausea : Denies dysuria or hematuria. Denies incontinence of bowel or bladder Musculoskeletal: Reports rt lower back pain radiates into mid buttock/rt leg Integument: Denies rash, swelling or skin lesions [] Neurologic: Denies focal weakness or sensory changes. Denies numbness/tingling All other systems were reviewed and found to be within normal limits, except as documented in this note. Current Medications Current Medications Current Medications Medications (Trade) Dose Ordered Sig/[place] Start Time Stop Time Status Last Admin Dose Admin Lidocaine (Lidoderm) 1 patch DAILY 05/15/18 17:00 05/15/18 18:19 DC 05/15/18 17:25 1 PATCH Methocarbamol (Robaxin) 750 mg 1X ONCE 05/15/18 17:00 05/15/18 17:04 DC 05/15/18 17:29 750 MG Miscellaneous (Lidoderm Patch Removal) 1 ea QHS 05/15/18 21:00 05/15/18 21:00 DC Ondansetron HCl (Zofran Odt) 8 mg 1X ONCE 05/15/18 17:00 05/15/18 17:04 DC 05/15/18 17:07 8 MG Prednisone (Prednisone) 50 mg 1X ONCE 05/15/18 17:00 05/15/18 17:04 DC 05/15/18 17:24 50 MG Allergies Allergies Allergies Coded Allergies Type Severity Reaction Last Updated Verified raspberry Allergy Severe CHOKING SENSATION IN THROAT 10/25/15 Yes amoxicillin Allergy Intermediate 10/13/17 Yes aspirin Allergy Intermediate 10/13/17 Yes codeine Allergy Intermediate 10/13/17 Yes ibuprofen Allergy Intermediate 10/13/17 Yes morphine Allergy Intermediate 10/13/17 Yes Physical Exam Physical Exam Constitutional: Well developed, well nourished, no acute distress, non-toxic appearance. [] HENT: Normocephalic, atraumatic, oropharynx moist, nose normal. [] Eyes: Pupils equal, conjunctiva normal, no discharge. [] Neck: Normal range of motion, no tenderness, supple, no stridor. [] Cardiovascular: Heart rate regular rhythm, no murmur [] Lungs & Thorax: Bilateral breath sounds clear to auscultation. Resp. equal/ nonlaborer Skin: Warm, dry, no erythema, no rash. [] Back: Tender rt lower back into mid buttock- no swelling/skin discoloration. No midline spinal tenderness. No CVA tenderness Extremities: Tender posterior upper rt leg into rt buttock, no cyanosis, no clubbing, ROM intact, no edema. 2+ dorsalis pedis/posterior tibial. Pt is repositioning herself without assist Neurologic: Alert and oriented X 3, normal motor function, normal sensory function, no focal deficits noted. [] Psychologic: Affect normal, judgement normal, anxious Current Patient Data Vital Signs Vital Signs Date Time Temp Pulse Resp B/P (MAP) Pulse Ox O2 Delivery O2 Flow Rate FiO2 05/15/18 18:18 105 16 179/92 (121) 100 Room Air 05/15/18 16:41 97.4 97.4 EKG EKG [] Radiology/Procedures Radiology/Procedures [] Course & Med Decision Making Course & Med Decision Making 1800: Re-evaluation patient is in no visible distress-she hadn't had Lidoderm patch applied to right lower back buttock area and provided with dose of prednisone and Robaxin. No anxiety noted-patient sitting on side of ER cart. Patient reports her symptoms have improved. Patient remains neuro and vascular intact in bilateral lower extremities. Patient is repositioning by herself and is able to ambulate without assistance. Steady gait at bedside. Patient reports her pain much improved as she is no longer nauseated. Patient has appointment with on Wednesday discussed she should discuss her ER visit with her doctor and have them reevaluate her lower back. Education provided on sciatica and lower back pain. Patient advised on signs and symptoms for her to return to ER for. Will provide patient with prescription for prednisone with patient educated that she should monitor her blood sugars. Patient advised on use of [id number] Tylenol and continued use of her prescribed gabapentin. Discharge instructions were discussed at time of discharge patient was in no distress. At time of discharge patient had steady unassisted gait. Dragon Disclaimer Dragon Disclaimer This electronic medical record was generated, in whole or in part, using a voice recognition dictation system. Departure Departure Impression: Primary Impression: Sciatica of right side Additional Impression: Back pain Disposition: 01 HOME, SELF-CARE Condition: STABLE Referrals: ANN KIRK (PCP) Patient Instructions: Back Pain, Adult, Sciatica Additional Instructions: Apply ice and heat compress to affected area every 3-4 hours for 20-30 minutes at a time avoid direct contact of ice to skin. Epsom salt soaks as directed on container. Tylenol as directed on container as needed for pain. Continue taking your prescribed gabapentin as previously prescribed. If symptoms persist follow-up with your primary doctor in 2-3 days sooner with any concerns. Monitor your blood sugar closely while taking the prednisone as this medication can cause elevation in your blood sugar. Scripts Prednisone (PREDNISONE) 20 Mg Tablet 2 TAB PO DAILY, #8 TAB 0 Refills Start 40mg daily on 05/16/18 Prov: GABRIEL RAYMOND APRN 05/15/18 Problem Qualifiers GABRIEL RAYMOND APRN May 15, 2018 17:04
[2018-05-15] MEDS ORDERED: PRED20TA PO (18:12)
[2018-05-15 18:18] VITALS: BP 179/92
[2018-05-15] MEDS ORDERED: PATCH REMOVAL. MC SCH (21:00)
== END 2018-05-15 18:18 | disposition home or self-care (01) ==
LOC: ER 16:38
DX: M54.41 Lumbago with sciatica, right side (principal); I10 Essential (primary) hypertension; E11.9 Type 2 diabetes mellitus without complications; Z86.14 Personal history of Methicillin resistant Staphylococcus aureus infection; Z88.1 Allergy status to other antibiotic agents; Z88.5 Allergy status to narcotic agent; Z88.6 Allergy status to analgesic agent; Z88.8 Allergy status to other drugs, medicaments and biological substances; Z91.018 Allergy to other foods
CPT/HCPCS: 99284; J7512; Q0162

== ENCOUNTER 2018-06-07 14:51 | Inpatient (IN) | payer OTHER ==
[~2018-06-07] VITALS: Ht 175.3 cm; Wt 66.7 kg
[~2018-06-07 14:51] MED LIST changes: +PRED20TA PO
[2018-06-07] MEDS ORDERED: MECLIZINE HCL 12.5 MG TABLET. PO ONE (15:00)
[2018-06-07] MEDS ORDERED: IV NORMAL SALINE 1000ML BAG 1,000 ML IV ONE ×2 (15:00→17:15)
[2018-06-07] MEDS ORDERED: ONDANSETRON PF 4 MG/2 ML VIAL. IV ONE (15:00)
--- NOTE | 2018-06-07 15:08 | PHYS DOC ---
Past Medical History Past Medical History: Diabetes-Type II, Hypotension, MRSA Additional Past Medical Histor: MRSA Past Surgical History: Other Additional Past Surgical Histo: R LEG I&D,L FOOT SURG Alcohol Use: None Drug Use: None Adult General Chief Complaint Chief Complaint: NEAR SYNCOPE [facility] HPI Patient is a 58 year old female with history of hypertension, diabetes type 2, who presents today to the ED to be evaluated for near syncope episode. 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 She states she was put in a chair and EMS was called. Patient states she has history of multiple syncope episodes and hypotension. Patient denies any chest pain, denies any shortness of breath. She states her symptoms are worse when he sitting up as well as ambulating. Review of Systems Review of Systems Constitutional: Denies fever or chills [] Eyes: Denies change in visual acuity, redness, or eye pain [] HENT: Denies nasal congestion or sore throat [] Respiratory: Denies cough or shortness of breath [] Cardiovascular: Reports hypotension. No additional information not addressed in HPI [] GI: Denies abdominal pain, nausea, vomiting, bloody stools or diarrhea [] : Denies dysuria or hematuria [] Musculoskeletal: Denies back pain or joint pain [] Integument: Denies rash or skin lesions [] Neurologic: Reports pre syncope. Denies headache, focal weakness or sensory changes [] All other systems were reviewed and found to be within normal limits, except as documented in this note. Current Medications Current Medications Current Medications Medications (Trade) Dose Ordered Sig/[place] Start Time Stop Time Status Last Admin Dose Admin Azithromycin 250 ml @ 250 mls/hr 1X ONCE 06/07/18 16:00 06/07/18 16:59 DC 06/07/18 16:22 250 MLS/HR Ceftriaxone Sodium (Rocephin) 1 gm 1X ONCE 06/07/18 16:00 06/07/18 16:01 DC 06/07/18 16:17 1 GM Meclizine HCl (Antivert) 25 mg 1X ONCE 06/07/18 15:00 06/07/18 15:03 DC 06/07/18 15:36 25 MG Multi-Ingredient Mouthwash/Gargle (Gi Cocktail) 20 ml 1X ONCE 06/07/18 15:45 06/07/18 15:46 DC 06/07/18 15:46 20 ML Ondansetron HCl (Zofran) 4 mg 1X ONCE 06/07/18 15:00 06/07/18 15:03 DC 06/07/18 15:37 4 MG Sodium Chloride 1,000 ml @ 1,000 mls/hr 1X ONCE 06/07/18 15:00 06/07/18 15:59 DC 06/07/18 15:36 1,000 MLS/HR Allergies Allergies Allergies Coded Allergies Type Severity Reaction Last Updated Verified raspberry Allergy Severe CHOKING SENSATION IN THROAT 10/25/15 Yes amoxicillin Allergy Intermediate 10/13/17 Yes aspirin Allergy Intermediate 10/13/17 Yes codeine Allergy Intermediate 10/13/17 Yes ibuprofen Allergy Intermediate 10/13/17 Yes morphine Allergy Intermediate 10/13/17 Yes Physical Exam Physical Exam Constitutional: Well developed, well nourished, no acute distress, non-toxic appearance. [] HENT: Normocephalic, atraumatic, bilateral external ears normal, oropharynx moist, no oral exudates, nose normal. [] Eyes: PERRLA, EOMI, conjunctiva normal, no discharge. [] Neck: Normal range of motion, no tenderness, supple, no stridor. [] Cardiovascular:Heart rate regular rhythm, no murmur [] Lungs & Thorax: Bilateral breath sounds clear to auscultation [] Abdomen: Bowel sounds normal, soft, no tenderness, no masses, no pulsatile masses. [] Skin: Warm, dry, no erythema, no rash. [] Back: No tenderness, no CVA tenderness. [] Extremities: No tenderness, no cyanosis, no clubbing, ROM intact, no edema. [] Neurologic: Alert and oriented X 3, normal motor function, normal sensory function, no focal deficits noted. Cranial nerves II through XII intact Psychologic: Affect normal, judgement normal, mood normal. [] Current Patient Data Vital Signs Vital Signs Date Time Temp Pulse Resp B/P (MAP) Pulse Ox O2 Delivery O2 Flow Rate FiO2 06/07/18 14:51 98.3 101 18 109/63 (78) 99 Room Air 98.3 Lab Values Laboratory Tests Test 06/07/18 15:00 White Blood Count 6.9 x10^3/uL (4.0-11.0) Red Blood Count 4.26 x10^6/uL (3.50-5.40) Hemoglobin 11.5 g/dL (12.0-15.5) L Hematocrit 35.4 % (36.0-47.0) L Mean Corpuscular Volume 83 fL (79-100) Mean Corpuscular Hemoglobin 27 pg (25-35) Mean Corpuscular Hemoglobin Concent 33 g/dL (31-37) Red Cell Distribution Width 13.5 % (11.5-14.5) Platelet Count 338 x10^3/uL (140-400) Neutrophils (%) (Auto) 51 % (31-73) Lymphocytes (%) (Auto) 38 % (24-48) Monocytes (%) (Auto) 7 % (0-9) Eosinophils (%) (Auto) 4 % (0-3) H Basophils (%) (Auto) 1 % (0-3) Neutrophils # (Auto) 3.5 x10^3uL (1.8-7.7) Lymphocytes # (Auto) 2.6 x10^3/uL (1.0-4.8) Monocytes # (Auto) 0.5 x10^3/uL (0.0-1.1) Eosinophils # (Auto) 0.3 x10^3/uL (0.0-0.7) Basophils # (Auto) 0.0 x10^3/uL (0.0-0.2) Prothrombin Time 13.2 SEC (11.7-14.0) Prothrombin Time INR 1.0 (0.8-1.1) Sodium Level 145 mmol/L (136-145) Potassium Level 3.9 mmol/L (3.5-5.1) Chloride Level 106 mmol/L (98-107) Carbon Dioxide Level 32 mmol/L (21-32) Anion Gap 7 (6-14) Blood Urea Nitrogen 33 mg/dL (7-20) H Creatinine 0.9 mg/dL (0.6-1.0) Estimated GFR (Cockcroft-Gault) 64.8 BUN/Creatinine Ratio 37 (6-20) H Glucose Level 62 mg/dL (70-99) L Calcium Level 10.3 mg/dL (8.5-10.1) H Magnesium Level 1.9 mg/dL (1.8-2.4) Total Bilirubin 0.2 mg/dL (0.2-1.0) Aspartate Amino Transferase (AST) 17 U/L (15-37) Alanine Aminotransferase (ALT) 20 U/L (14-59) Alkaline Phosphatase 106 U/L (46-116) Creatine Kinase 73 U/L (26-192) Creatine Kinase MB (Mass) 2.0 ng/mL (0.0-3.6) Creatine Kinase MB Relative Index % (0-4) Troponin I Quantitative < 0.017 ng/mL (0.000-0.055) LU-Lwc-B-Type Natriuretic Peptide 118 pg/mL (0-124) Total Protein 7.8 g/dL (6.4-8.2) Albumin 3.1 g/dL (3.4-5.0) L Albumin/Globulin Ratio 0.7 (1.0-1.7) L Thyroid Stimulating Hormone (TSH) 0.813 uIU/mL (0.358-3.74) Laboratory Tests 06/07/18 15:00 Laboratory Tests 06/07/18 15:00 EKG EKG [] Radiology/Procedures Radiology/Procedures []PROCEDURE: PORTABLE CHEST 1V PORTABLE CHEST 1V Clinical indications: Syncope. COMPARISON: March 21, 2018. Findings: There is a new infiltrate of the medial aspect of the left lower lung zone. No perihilar pulmonary edema or pleural effusion or pneumothorax is evident. The heart size, pulmonary vasculature, mediastinum and both jose are stable. Impression: New infiltrate of the medial aspect of the left lower lung zone. Electronically signed by: Prosper Lopes MD (06/07/2018 3:30 PM) [id number] DICTATED and SIGNED BY: PROSPER LOPES MD DATE: 06/07/18 1528 Course & Med Decision Making Course & Med Decision Making Pertinent Labs and Imaging studies reviewed. (See chart for details) This is a 58-year-old female patient presenting to the ED today to be evaluated for hypotension and dizziness. Patient states she has history of hypertension, she states she also has history of dizziness. She states she's been admitted as well as worked up by her PCP for this symptoms but they could not find a cause. She states today she was at the doctor's office and became dizzy, her blood pressure was taken and it was in the 50s systolic. Patient states she feels the room is spinning. Chest x-ray interpreted by radiologist was noted for left lower lobe infiltrate. Patient was started on Rocephin and azithromycin. Labs are negative for any acute findings. Patient was given IV fluids. I attempted to get patient up from sitting position. She states the room is spinning and there is no way she can get up. Consulted with Dr. Lagos was accepted patient for admission. Routine consult placed for neurology Dragon Disclaimer Dragon Disclaimer This electronic medical record was generated, in whole or in part, using a voice recognition dictation system. Departure Departure Impression: Primary Impression: Vertigo Additional Impressions: Hypotension Left lower lobe pneumonia Fever Disposition: ADMITTED INPATIENT Condition: STABLE Referrals: ANN KIRK (PCP) Problem Qualifiers Additional Impressions: Hypotension Hypotension type: unspecified hypotension type Qualified Codes: I95.9 - Hypotension, unspecified Left lower lobe pneumonia Pneumonia type: due to unspecified organism Qualified Codes: J18.1 - Lobar pneumonia, unspecified organism Fever Fever type: unspecified Qualified Codes: R50.9 - Fever, unspecified MUTUNGA,[facility] Jun 07, 2018 15:08
[2018-06-07 15:11] LABS: BASO % 1 % (0-3); EOS # 0.3 x10^3/uL (0.0-0.7); EOS % 4 % (0-3); HEMATOCRIT 35.4 % (36.0-47.0); HEMOGLOBIN 11.5 g/dL (12.0-15.5); LYMPH # 2.6 x10^3/uL (1.0-4.8); LYMPH % 38 % (24-48); MEAN CORPUSCULAR HEMOGLOBIN 27 pg (25-35); MEAN CORPUSCULAR HGB CONC 33 g/dL (31-37); MEAN CORPUSCULAR VOLUME 83 fL (79-100); MONO # 0.5 x10^3/uL (0.0-1.1); MONO % 7 % (0-9); NEUT # 3.5 x10^3uL (1.8-7.7); NEUT % 51 % (31-73); PLATELET COUNT 338 x10^3/uL (140-400); RED BLOOD COUNT 4.26 x10^6/uL (3.50-5.40); RED CELL DISTRIBUTION WIDTH 13.5 % (11.5-14.5); WHITE BLOOD COUNT 6.9 x10^3/uL (4.0-11.0)
[2018-06-07 15:20] LABS: PROTHROMBIN TIME PATIENT 13.2 SEC (11.7-14.0)
[2018-06-07 15:22] LABS: CALCIUM 10.3 mg/dL (8.5-10.1); CREATININE 0.9 mg/dL (0.6-1.0); GFR 64.8; POTASSIUM 3.9 mmol/L (3.5-5.1)
[2018-06-07 15:28] LABS: ALBUMIN 3.1 g/dL (3.4-5.0); ALBUMIN/GLOBULIN RATIO 0.7 (1.0-1.7); MAGNESIUM 1.9 mg/dL (1.8-2.4); TOTAL BILIRUBIN 0.2 mg/dL (0.2-1.0); TOTAL PROTEIN 7.8 g/dL (6.4-8.2)
--- NOTE | 2018-06-07 15:33 | RAD ---
PORTABLE CHEST 1V Clinical indications: Syncope. COMPARISON: March 21, 2018. Findings: There is a new infiltrate of the medial aspect of the left lower lung zone. No perihilar pulmonary edema or pleural effusion or pneumothorax is evident. The heart size, pulmonary vasculature, mediastinum and both jose are stable. Impression: New infiltrate of the medial aspect of the left lower lung zone. Electronically signed by: Ayush Lopes MD (06/07/2018 3:30 PM) [id number]
[2018-06-07 15:37] LABS: CREATINE KINASE 73 U/L (26-192)
[2018-06-07] MEDS ORDERED: LIDO:MAALOX 1:1 20 ML SINGLE DOSE. SWSW ONE (15:45)
[2018-06-07] MEDS ORDERED: AZITHRMYCN 500MG IVPB FOR OMNI 250 ML IV ONE (16:00)
[2018-06-07] MEDS ORDERED: cefTRIAXone IV Push 1 GM VIAL. IVP ONE (16:00)
--- NOTE | 2018-06-07 17:12 | PDOC1 ---
History and Physical Date of Admission Date of Admission DATE: 06/07/18 TIME: 17:11 Identification/Chief Complaint Chief Complaint 57-year-old female patient complaining of dizziness, occurring suddenly when standing.today at endocrinology office today, [facility] BP dropped markedly. She does not tell me that she has symptoms when moving her head, or while seated she complains that she blacked out and fell, that she gets dizzy presented today to the ED to be evaluated for near syncope episode. 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, she states she became hypotensive with blood pressure systolic in the 50s, taken here by EMS Past Medical History Past Medical History Past Medical History Past Medical History Past Medical History: Diabetes-Type II, Hypotension, MRSA Additional Past Medical Histor: MRSA Past Surgical History: Other Additional Past Surgical Histo: R LEG I&D,L FOOT SURG Alcohol Use: None Drug Use: None FAMILY HX Diabetes Cardiovascular: HTN, Syncope, Hyperlipidemia Pulmonary: COPD CENTRAL NERVOUS SYSTEM: Periperal neuropathy, TIA Psych: Anxiety, Depression Musculoskeletal: Osteoarthritis, Other Infectious disease: Other Renal/: UTI, Urinary Incontinence Endocrine: Diabetes Past Surgical History Past Surgical History: Other Family History Family History: No Significant Social History Smoke: No ALCOHOL: none Drugs: None Current Problem List Problem List Problems Medical Problems: (1) Hypotension Status: Acute (2) Vertigo Status: Acute Current Medications Current Medications Current Medications Meclizine HCl (Antivert) 25 mg 1X ONCE PO Last administered on 06/07/18at 15:36 ; Start 06/07/18 at 15:00; Stop 06/07/18 at 15:03; Status DC Sodium Chloride 1,000 ml @ 1,000 mls/hr 1X ONCE IV Last administered on at 15:36; Start 06/07/18 at 15:00; Stop 06/07/18 at 15:59; Status DC Ondansetron HCl (Zofran) 4 mg 1X ONCE IV Last administered on 06/07/18at 15:37 ; Start 06/07/18 at 15:00; Stop 06/07/18 at 15:03; Status DC Multi-Ingredient Mouthwash/Gargle (Gi Cocktail) 20 ml 1X ONCE SWSW Last administered on 06/07/18at 15:46; Start 06/07/18 at 15:45; Stop 06/07/18 at 15:46 ; Status DC Ceftriaxone Sodium (Rocephin) 1 gm 1X ONCE IVP Last administered on 06/07/18at 16:17; Start 06/07/18 at 16:00; Stop 06/07/18 at 16:01; Status DC Azithromycin 250 ml @ 250 mls/hr 1X ONCE IV Last administered on 06/07/18at 16 :22; Start 06/07/18 at 16:00; Stop 06/07/18 at 16:59; Status DC Active Scripts Active Prednisone 20 Mg Tablet 2 Tab PO DAILY Start 40mg daily on 05/16/18 Levaquin (Levofloxacin) 500 Mg Tablet 1 Tab PO DAILY Meclizine Hcl 25 Mg Tablet 1 Tab PO TID PRN Macrobid 100 Mg Capsule (Nitrofurantoin Monohyd/M-Cryst) 100 Mg Capsule 1 Cap PO BID Bactrim Ds Tablet (Sulfamethoxazole/Trimethoprim) 1 Each Tablet 1 Tab PO BID Fludrocortisone Acetate 0.1 Mg Tablet 0.1 Mg PO BID Fludrocortisone Acetate 0.1 Mg Tablet 0.1 Mg PO DAILY Levemir Flextouch (Insulin Detemir) 300 Units/3 Ml Insuln.pen 30 Units SQ QHS Novolog Flexpen (Insulin Aspart) 300 Units/3 Ml Insuln.pen 10 Units SQ TIDAC Reported Amitriptyline Hcl 50 Mg Tablet 1 Tab PO QHS Lovastatin 20 Mg Tablet 1 Tab PO DAILY Allergies Allergies: Coded Allergies: raspberry (Verified Allergy, Severe, CHOKING SENSATION IN THROAT, 10/25/15) amoxicillin (Verified Allergy, Intermediate, 10/13/17) aspirin (Verified Allergy, Intermediate, 10/13/17) codeine (Verified Allergy, Intermediate, 10/13/17) ibuprofen (Verified Allergy, Intermediate, 10/13/17) morphine (Verified Allergy, Intermediate, 10/13/17) ROS Review of System Review of Systems Review of Systems Constitutional: Denies fever or chills [] Eyes: Denies change in visual acuity, redness, or eye pain [] HENT: Denies nasal congestion or sore throat [] Respiratory: Denies cough or shortness of breath [] Cardiovascular: Reports hypotension. No additional information not addressed in HPI [] GI: Denies abdominal pain, nausea, vomiting, bloody stools or diarrhea [] : Denies dysuria or hematuria [] Musculoskeletal: Denies back pain or joint pain [] Integument: Denies rash or skin lesions [] Neurologic: Reports pre syncope. Denies headache, focal weakness or sensory changes [] 14 PT systems were reviewed and found to be within normal limits, except as documented . Musculoskeletal: Yes Gait Disturbance, Yes Muscular Weakness Physical Exam Physical Exam Physical Exam Physical Exam Constitutional: Well developed, well nourished, no acute distress, non-toxic appearance. [] HENT: Normocephalic, atraumatic, bilateral external ears normal, oropharynx moist, no oral exudates, nose normal. [] Eyes: PERRLA, EOMI, conjunctiva normal, no discharge. [] Neck: Normal range of motion, no tenderness, supple, no stridor. [] Cardiovascular:Heart rate regular rhythm, no murmur [] Lungs & Thorax: Bilateral breath sounds clear to auscultation [] Abdomen: Bowel sounds normal, soft, no tenderness, no masses, no pulsatile masses. [] Skin: Warm, dry, no erythema, no rash. [] Back: No tenderness, no CVA tenderness. [] Extremities: No tenderness, no cyanosis, no clubbing, ROM intact, no edema. [] Neurologic: Alert and oriented X 3, normal motor function, normal sensory function, no focal deficits noted. Cranial nerves II through XII intact Psychologic: Affect normal, judgement normal, mood normal. [] General: Alert, Oriented X3, Cooperative HEENT: Atraumatic, EOMI Lungs: Normal air movement Heart: RRR Breasts: Not examined Abdomen: Normal bowel sounds, Soft Rectal Exam: not examined PELVIC: Examination not indicated Extremities: No cyanosis, No edema Neuro: Normal speech, Cranial nerves 3-12 NL Psych/Mental Status: Mental status NL, Mood NL Vitals Vitals Vital Signs Date Time Temp Pulse Resp B/P (MAP) Pulse Ox O2 Delivery O2 Flow Rate FiO2 06/07/18 14:51 98.3 101 18 109/63 (78) 99 Room Air 98.3 Labs Labs Laboratory Tests Test 06/07/18 15:00 White Blood Count 6.9 x10^3/uL (4.0-11.0) Red Blood Count 4.26 x10^6/uL (3.50-5.40) Hemoglobin 11.5 g/dL (12.0-15.5) Hematocrit 35.4 % (36.0-47.0) Mean Corpuscular Volume 83 fL (79-100) Mean Corpuscular Hemoglobin 27 pg (25-35) Mean Corpuscular Hemoglobin Concent 33 g/dL (31-37) Red Cell Distribution Width 13.5 % (11.5-14.5) Platelet Count 338 x10^3/uL (140-400) Neutrophils (%) (Auto) 51 % (31-73) Lymphocytes (%) (Auto) 38 % (24-48) Monocytes (%) (Auto) 7 % (0-9) Eosinophils (%) (Auto) 4 % (0-3) Basophils (%) (Auto) 1 % (0-3) Neutrophils # (Auto) 3.5 x10^3uL (1.8-7.7) Lymphocytes # (Auto) 2.6 x10^3/uL (1.0-4.8) Monocytes # (Auto) 0.5 x10^3/uL (0.0-1.1) Eosinophils # (Auto) 0.3 x10^3/uL (0.0-0.7) Basophils # (Auto) 0.0 x10^3/uL (0.0-0.2) Prothrombin Time 13.2 SEC (11.7-14.0) Prothromb Time International Ratio 1.0 (0.8-1.1) Sodium Level 145 mmol/L (136-145) Potassium Level 3.9 mmol/L (3.5-5.1) Chloride Level 106 mmol/L (98-107) Carbon Dioxide Level 32 mmol/L (21-32) Anion Gap 7 (6-14) Blood Urea Nitrogen 33 mg/dL (7-20) Creatinine 0.9 mg/dL (0.6-1.0) Estimated GFR (Cockcroft-Gault) 64.8 BUN/Creatinine Ratio 37 (6-20) Glucose Level 62 mg/dL (70-99) Calcium Level 10.3 mg/dL (8.5-10.1) Magnesium Level 1.9 mg/dL (1.8-2.4) Total Bilirubin 0.2 mg/dL (0.2-1.0) Aspartate Amino Transf (AST/SGOT) 17 U/L (15-37) Alanine Aminotransferase (ALT/SGPT) 20 U/L (14-59) Alkaline Phosphatase 106 U/L (46-116) Creatine Kinase 73 U/L (26-192) Creatine Kinase MB (Mass) 2.0 ng/mL (0.0-3.6) Creatine Kinase MB Relative Index % (0-4) Troponin I Quantitative < 0.017 ng/mL (0.000-0.055) EA-Wcb-M-Type Natriuretic Peptide 118 pg/mL (0-124) Total Protein 7.8 g/dL (6.4-8.2) Albumin 3.1 g/dL (3.4-5.0) Albumin/Globulin Ratio 0.7 (1.0-1.7) Thyroid Stimulating Hormone (TSH) 0.813 uIU/mL (0.358-3.74) Laboratory Tests Test 06/07/18 15:00 White Blood Count 6.9 x10^3/uL (4.0-11.0) Red Blood Count 4.26 x10^6/uL (3.50-5.40) Hemoglobin 11.5 g/dL (12.0-15.5) Hematocrit 35.4 % (36.0-47.0) Mean Corpuscular Volume 83 fL (79-100) Mean Corpuscular Hemoglobin 27 pg (25-35) Mean Corpuscular Hemoglobin Concent 33 g/dL (31-37) Red Cell Distribution Width 13.5 % (11.5-14.5) Platelet Count 338 x10^3/uL (140-400) Neutrophils (%) (Auto) 51 % (31-73) Lymphocytes (%) (Auto) 38 % (24-48) Monocytes (%) (Auto) 7 % (0-9) Eosinophils (%) (Auto) 4 % (0-3) Basophils (%) (Auto) 1 % (0-3) Neutrophils # (Auto) 3.5 x10^3uL (1.8-7.7) Lymphocytes # (Auto) 2.6 x10^3/uL (1.0-4.8) Monocytes # (Auto) 0.5 x10^3/uL (0.0-1.1) Eosinophils # (Auto) 0.3 x10^3/uL (0.0-0.7) Basophils # (Auto) 0.0 x10^3/uL (0.0-0.2) Prothrombin Time 13.2 SEC (11.7-14.0) Prothromb Time International Ratio 1.0 (0.8-1.1) Sodium Level 145 mmol/L (136-145) Potassium Level 3.9 mmol/L (3.5-5.1) Chloride Level 106 mmol/L (98-107) Carbon Dioxide Level 32 mmol/L (21-32) Anion Gap 7 (6-14) Blood Urea Nitrogen 33 mg/dL (7-20) Creatinine 0.9 mg/dL (0.6-1.0) Estimated GFR (Cockcroft-Gault) 64.8 BUN/Creatinine Ratio 37 (6-20) Glucose Level 62 mg/dL (70-99) Calcium Level 10.3 mg/dL (8.5-10.1) Magnesium Level 1.9 mg/dL (1.8-2.4) Total Bilirubin 0.2 mg/dL (0.2-1.0) Aspartate Amino Transf (AST/SGOT) 17 U/L (15-37) Alanine Aminotransferase (ALT/SGPT) 20 U/L (14-59) Alkaline Phosphatase 106 U/L (46-116) Creatine Kinase 73 U/L (26-192) Creatine Kinase MB (Mass) 2.0 ng/mL (0.0-3.6) Creatine Kinase MB Relative Index % (0-4) Troponin I Quantitative < 0.017 ng/mL (0.000-0.055) UT-Pau-W-Type Natriuretic Peptide 118 pg/mL (0-124) Total Protein 7.8 g/dL (6.4-8.2) Albumin 3.1 g/dL (3.4-5.0) Albumin/Globulin Ratio 0.7 (1.0-1.7) Thyroid Stimulating Hormone (TSH) 0.813 uIU/mL (0.358-3.74) Images Images Pulmonary Vein S1 Velocity 55.5cm/s D2 Velocity 60.2cm/s LEFT VENTRICLE The left ventricle is normal size. There is normal left ventricular wall thickness. The left ventricular systolic function is normal and the ejection fraction is within normal range. EF 55% There is normal LV segmental wall motion. The left ventricular diastolic function and filling is normal for age. RIGHT VENTRICLE The right ventricle is normal size. The right ventricular systolic function is normal. ATRIA The left atrium size is normal. The right atrium size is normal. The interatrial septum is intact with no evidence for an atrial septal defect or patent foramen ovale as noted on 2-D or Doppler imaging. AORTIC VALVE The aortic valve is thickened but opens well. Doppler and Color Flow revealed no significant aortic regurgitation. There is no significant aortic valvular stenosis. There is no aortic valvular vegetation. MITRAL VALVE The mitral valve is mildly thickened but opens well. There is no evidence of mitral valve prolapse. There is no mitral valve stenosis. Doppler and Color- flow revealed trace mitral regurgitation. TRICUSPID VALVE The tricuspid valve is normal in structure. Doppler and Color Flow revealed trace tricuspid regurgitation. There is no tricuspid valve prolapse or vegetation. There is no tricuspid valve stenosis. PULMONIC VALVE The pulmonic valve is not well visualized. Doppler and Color Flow revealed no pulmonic valvular regurgitation. There is no pulmonic valvular stenosis. GREAT VESSELS The aortic root is normal in size. The IVC is dilated and collapses <50% with inspiration. PERICARDIAL EFFUSION There is no pleural effusion. There is no evidence of significant pericardial effusion. Critical Notification Critical Value: No <Conclusion> The left ventricular systolic function is normal and the ejection fraction is within normal range. EF 55% There is normal LV segmental wall motion. Signed by : Lisette Mcnamara, Electronically Approved : 11/05/2017 16:00:30 DICTATED and SIGNED BY: LISETTE MCNAMARA MD DATE: 11/05/17 1600 PROCEDURE After explaining the risks, benefits, and alternative options, informed consent was obtained from the patient. Base - line Rhythm: Sinus HR: 96 bpm BP: 138/84mmHg O2 Sat: 97 % Flat11:59 Rhythm: Sinus with PVC HR: 94 bpm BP: 141/84mmHg O2 Sat: 96 % Flat12:14 Rhythm: Sinus with PVC HR: 97 bpm BP: 146/86mmHg O2 Sat: 95 % 80' Tilt12:17 Rhythm: Sinus HR: 106 bpm BP: 69/53mmHg O2 Sat: 100 % 80' Tilt12:19 Rhythm: Sinus Tachycardia HR: 116 bpm BP: 59/ 35mmHg O2 Sat: 99 % 80' Tilt12:20 Rhythm: Sinus Tachycardia HR: 115 bpm BP: 0/ 0mmHg O2 Sat: 98 % 80' Tilt12:22 Rhythm: Sinus Tachycardia HR: 114 bpm BP: 74/ 39mmHg O2 Sat: 99 % 80' Tilt12:24 Rhythm: Sinus Tachycardia HR: 114 bpm BP: 67/ 34mmHg O2 Sat: 100 % 80' Tilt12:27 Rhythm: Sinus Tachycardia HR: 118 bpm BP: 74/ 53mmHg O2 Sat: 97 % 80' Tilt12:30 Rhythm: Sinus Tachycardia HR: 123 bpm BP: 176/ 129mmHg O2 Sat: 96 % Flat12:31 Rhythm: Sinus Tachycardia HR: 117 bpm BP: 140/88mmHg O2 Sat: 100 % Flat12:33 Rhythm: Sinus Tachycardia HR: 113 bpm BP: 174/96mmHg O2 Sat: 100 % Flat12:35 Rhythm: Sinus Tachycardia HR: 103 bpm BP: 155/89mmHg O2 Sat: 93 % Flat12:38 Rhythm: Sinus HR: 98 bpm BP: 155/91mmHg O2 Sat: 97 % Flat12:41 Rhythm: Sinus HR: 95 bpm BP: 144/87mmHg O2 Sat: 98 % [id number] HR: 94 bpm BP: 118/66mmHg COMPLICATIONS None CONCLUSION Pt c/o seeing white 2 minutes into standing, became anxious and tearful as test continued. AT 1233 pt appeared to lose consciousness, she complained of not being able to see and that everything was quite. The blood pressure initially dropped down to 57. He continued to monitor the patient was able to speak but stated that she could not see and was very limp and complaining that she was passing out. The patient then stated that she was feeling very poorly and her blood pressure jumped to 220/120 BP and Hr stayed in the 120's. Pt returned to lying position and HR and BP returned to baseline. Pt awake and alert and returned to room, RN notified. Dr Cox present throughout procedure. To me this patient may have an endocrine problem causing this orthostatic changes more than a neurocardiogenic syncope. There was no changes in the heart rate to any significant degree and no significant bradycardia. RECOMMENDATIONS I would recommend for this patient to have a consultation with an prosthetic aide so that they can evaluate her and see if we can figure out the etiology of her wide variations in the blood pressure as well as the syncopal episodes. Signed by : Rod Cox MD Electronically Approved : 12/08/2017 18:38:21 DICTATED and SIGNED BY: ROD COX MD DATE: 12/08/17 1838 Clinical indications: Syncope. COMPARISON: March 21, 2018. Findings: There is a new infiltrate of the medial aspect of the left lower lung zone. No perihilar pulmonary edema or pleural effusion or pneumothorax is evident. The heart size, pulmonary vasculature, mediastinum and both jose are stable. Impression: New infiltrate of the medial aspect of the left lower lung zone. Electronically signed by: Prosper Lopes MD (06/07/2018 3:30 PM) [id number] DICTATED and SIGNED BY: PROSPER LOPES MD DATE: 06/07/18 1528 VTE Prophylaxis Ordered VTE Prophylaxis Devices: Yes VTE Pharmacological Prophylaxi: Yes Assessment/Plan Assessment/Plan impression LEFT lower lobe pneumonitis marked orthostatic hypotension Dm2, mod control prior CVA hypoglycemia ECHO 10/2017 The left ventricular systolic function is normal and the ejection fraction is within normal range. EF 55% There is normal LV segmental wall motion. plan cARDIOLOGY CONSULT iv fluid bolus in ER iv antibiotics, zithromax, rocephin dvt prophylaxis TELE PARMINDER LARSON MD Jun 07, 2018 17:12
[2018-06-07] MEDS ORDERED: MECLIZINE HCL 12.5 MG TABLET. PO PRN ×2 (17:15→17:30)
[2018-06-07] MEDS ORDERED: ONDANSETRON PF 4 MG/2 ML VIAL. IV PRN (17:15)
[2018-06-07] MEDS ORDERED: NON FORMULARY ITEM (Meclizine Hcl 1 TAB) PO PRN (17:30)
[2018-06-07] MEDS ORDERED: DEXTROSE 50% 25 GM / 50ML DISP.SYRIN. IV PRN (17:30)
--- NOTE | 2018-06-07 18:14 | RAD ---
CT scan of the head without contrast 06/07/2018 Clinical History: Dizziness. Technique: Unenhanced, contiguous, 5 mm axial sections were obtained through the head. One or more of the following individualized dose reduction techniques were utilized for this study: 1. Automated exposure control. 2. Adjustment of the mA and/or kV according to patient size. 3. Use of iterative reconstruction technique. Findings: Comparison study is dated 01/02/2018 There is generalized parenchymal atrophy. Areas of decreased attenuation are seen within the periventricular and subcortical white matter of both cerebral hemispheres consistent with areas of small vessel ischemic disease. No acute parenchymal abnormality is seen. No extra-axial fluid collection is noted. No skull fracture is seen. Impression: No acute intracranial abnormality is seen. Electronically signed by: Wale Tyler MD (06/07/2018 6:11 PM) [facility]
[2018-06-07 20:26] VITALS: BP 168/91
[2018-06-07] MEDS: ATORVASTATIN CALCIUM 10 MG TABLET. PO SCH (21:00)
[2018-06-07 21:06] LABS: BILIRUBIN,URINE NEGATIVE (NEG); CLARITY,URINE CLEAR; COLOR,URINE YELLOW; NITRITE,URINE NEGATIVE (NEG); PH,URINE 6.5; PROTEIN,URINE 30 mg/dL (NEG-TRACE); UROBILINOGEN,URINE 0.2 mg/dL (0.2 mg/dL)
[2018-06-07 21:10] LABS: SQUAMOUS EPITHELIAL CELL,UR FEW /LPF
[2018-06-07 21:11] LABS: BACTERIA,URINE FEW /HPF (0-FEW); RBC,URINE OCC /HPF (0-2)
[2018-06-07 21:14] LABS: AMPHETAMINE/METHAMPHETAMINE NEG (NEG); BARBITURATES NEG (NEG); BENZODIAZEPINES NEG (NEG); CANNABINOIDS NEG (NEG); COCAINE NEG (NEG); METHADONE NEG (NEG); OPIATES NEG (NEG); PHENCYCLIDINE NEG (NEG)
[2018-06-07] MEDS: FLUDROCORTISONE 0.1 MG TABLET PO SCH (22:15)
[2018-06-07] MEDS ORDERED: GABA300C18 PO (22:35)
[2018-06-07] MEDS ORDERED: AMIT100T PO (22:35)
[2018-06-07] MEDS ORDERED: METH5TAB6 PO (22:35)
[2018-06-07 23:37] VITALS: BP 159/89
[2018-06-07] MEDS: GABAPENTIN 300 MG CAPSULE. PO SCH (23:42)
[2018-06-08] VITALS (8 sets, daily range): BP systolic 95–164; BP diastolic 59–101
[2018-06-08] MEDS: ACETAMINOPHEN 325 MG TABLET. PO PRN ×2 (03:04→13:41)
[2018-06-08 04:16] LABS: HEMOGLOBIN A1C 14.4 % (4.8-5.6)
[2018-06-08 07:07] LABS: BASO % 1 % (0-3); EOS # 0.2 x10^3/uL (0.0-0.7); EOS % 3 % (0-3); HEMATOCRIT 31.2 % (36.0-47.0); HEMOGLOBIN 10.3 g/dL (12.0-15.5); LYMPH # 2.3 x10^3/uL (1.0-4.8); LYMPH % 37 % (24-48); MEAN CORPUSCULAR HEMOGLOBIN 27 pg (25-35); MEAN CORPUSCULAR HGB CONC 33 g/dL (31-37); MEAN CORPUSCULAR VOLUME 83 fL (79-100); MONO # 0.5 x10^3/uL (0.0-1.1); MONO % 7 % (0-9); NEUT # 3.2 x10^3uL (1.8-7.7); NEUT % 52 % (31-73); PLATELET COUNT 263 x10^3/uL (140-400); RED BLOOD COUNT 3.75 x10^6/uL (3.50-5.40); RED CELL DISTRIBUTION WIDTH 13.3 % (11.5-14.5); WHITE BLOOD COUNT 6.3 x10^3/uL (4.0-11.0)
[2018-06-08 07:30] LABS: CALCIUM 8.9 mg/dL (8.5-10.1); CREATININE 0.7 mg/dL (0.6-1.0); GFR 86.6; POTASSIUM 4.2 mmol/L (3.5-5.1)
[2018-06-08] MEDS: FLUDROCORTISONE 0.1 MG TABLET PO SCH (08:58)
[2018-06-08] MEDS: INSULIN LISPRO 300 UNITS/3 ML INSULN.PEN. SQ SCH ×3 (09:11→18:05)
[2018-06-08] MEDS ORDERED: ONDANSETRON PF 4 MG/2 ML VIAL. IV PRN (09:15)
[2018-06-08] MEDS: methIMAzole 10 MG TABLET PO SCH (09:59)
--- NOTE | 2018-06-08 10:57 | PDOC2 ---
CHIDI HERRERA MC KAY STITCHER 06/08/18 1057: CARDIAC CONSULT DATE OF CONSULT Date of Consult DATE: 06/08/18 TIME: 10:39 REASON FOR CONSULT Reason for Consult: Orthostatic hypotension REFERRING PHYSICIAN Referring Physician: Fullbright SOURCE Source: Chart review, Patient HISTORY OF PRESENT ILLNESS HISTORY OF PRESENT ILLNESS This is a 58 yo female admitted for complains of low BP and dizziness. 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 ambulance was called and los was going to go to [facility] but told them that she wants to go to [facility] since most of her workup up has been here. Her BG has been erratic and her A1C was 14.4. Verbalized compliance with her medications for DM. She has been having dizzy spells more and almost everyday since her florinef was taken off last March and was taken off wince her BP was high that she may stroked out. She has been drinking estimated about 3 L at least of fluids a day of water but no extra salt due to her taste issue. She also has been urinating more. She also was also noted with hyperthyroidism and her TSH is currently controlled with methimazole with multiple thyroid nodules. She is suppose to have a scan to her thyroid and plan is still pending as far as moving forward with her thyroid. Reports no palpitations but has been falling several times with also associated neuropathy hence multiple scabs to her LE. No traumtic injuryies so far. She has had extensive workup for syncope in the past and has been consistent with orthostasis due to autonomic neuropathy and endocrine issues. She was using midodrine in the past but was not working out for her plus it was expensive as she explained. PAST MEDICAL HISTORY Past Medical History Cardiovascular: HTN, Hyperlipidemia, orthostasis, neurocardiogenic syncope CENTRAL NERVOUS SYSTEM: Periperal neuropathy (including autonomic neuropathy), TIA Psych: Anxiety, Depression Renal/: UTI, Urinary Incontinence Endocrine: Diabetes (1), Multiple thyroid nodules PAST SURGICAL HISTORY Past Surgical History: Other (foot surgery) FAMILY HISTORY Family History: Diabetes SOCIAL HISTORY Smoke: No ALCOHOL: none Drugs: None Lives: with Family CURRENT MEDICATIONS CURRENT MEDICATIONS Current Medications Medications (Trade) Dose Ordered Sig/[place] Route PRN Reason Start Time Stop Time Status Last Admin Dose Admin Meclizine HCl (Antivert) 25 mg 1X ONCE PO 06/07/18 15:00 06/07/18 15:03 DC 06/07/18 15:36 Sodium Chloride 1,000 ml @ 1,000 mls/hr 1X ONCE IV 06/07/18 15:00 06/07/18 15:59 DC 06/07/18 15:36 Ondansetron HCl (Zofran) 4 mg 1X ONCE IV 06/07/18 15:00 06/07/18 15:03 DC 06/07/18 15:37 Multi-Ingredient Mouthwash/Gargle (Gi Cocktail) 20 ml 1X ONCE SWSW 06/07/18 15:45 06/07/18 15:46 DC 06/07/18 15:46 Ceftriaxone Sodium (Rocephin) 1 gm 1X ONCE IVP 06/07/18 16:00 06/07/18 16:01 DC 06/07/18 16:17 Azithromycin 250 ml @ 250 mls/hr 1X ONCE IV 06/07/18 16:00 06/07/18 16:59 DC 06/07/18 16:22 Acetaminophen (Tylenol) 650 mg PRN Q4HRS PRN PO FEVER 06/07/18 17:15 06/08/18 17:14 06/08/18 03:04 Sodium Chloride 1,000 ml @ 125 mls/hr 1X ONCE IV 06/07/18 17:15 06/08/18 01:14 DC 06/07/18 22:16 Fludrocortisone Acetate (Florinef) 0.1 mg BID PO 06/07/18 21:00 06/08/18 09:13 DC 06/08/18 08:58 Insulin Human Lispro (HumaLOG) 0-5 UNITS TIDWMEALS SQ 06/08/18 08:00 06/08/18 09:11 Gabapentin (Neurontin) 300 mg HS PO 06/07/18 23:00 06/07/18 23:42 Levofloxacin (Levaquin) 500 mg 1X ONCE PO 06/08/18 09:15 06/08/18 09:16 DC 06/08/18 09:59 Methimazole (Tapazole) 5 mg DAILY08 PO 06/08/18 09:30 06/08/18 09:59 ALLERGIES ALLERGIES: Coded Allergies: raspberry (Verified Allergy, Severe, CHOKING SENSATION IN THROAT, 10/25/15) amoxicillin (Verified Allergy, Intermediate, 10/13/17) aspirin (Verified Allergy, Intermediate, 10/13/17) codeine (Verified Allergy, Intermediate, 10/13/17) ibuprofen (Verified Allergy, Intermediate, 10/13/17) morphine (Verified Allergy, Intermediate, 10/13/17) ROS Review of System 14 point ROS evaluated with pertinent positives noted per HPI PHYSICAL EXAM General: Alert, Oriented X3, Cooperative, No acute distress HEENT: Atraumatic, Mucous membr. moist/pink Lungs: Clear to auscultation, Normal air movement Heart: Regular rate (SR/ST) Abdomen: Soft, No tenderness Extremities: No cyanosis, No edema Skin: No breakdown, Other (multipel LE scabs) Neuro: Normal speech, Sensation intact Psych/Mental Status: Mental status NL, Mood NL MUSCULOSKELETAL: Osteoarthritic changes both hands VITALS VITALS Vital Signs Date Time Temp Pulse Resp B/P (MAP) Pulse Ox O2 Delivery O2 Flow Rate FiO2 06/08/18 10:19 91 142/88 (106) 06/08/18 07:35 98.0 18 98 Room Air 98.0 LABS Lab: Laboratory Tests Test 06/07/18 15:00 06/07/18 20:49 06/07/18 21:00 06/08/18 00:36 White Blood Count 6.9 x10^3/uL (4.0-11.0) Red Blood Count 4.26 x10^6/uL (3.50-5.40) Hemoglobin 11.5 g/dL (12.0-15.5) Hematocrit 35.4 % (36.0-47.0) Mean Corpuscular Volume 83 fL (79-100) Mean Corpuscular Hemoglobin 27 pg (25-35) Mean Corpuscular Hemoglobin Concent 33 g/dL (31-37) Red Cell Distribution Width 13.5 % (11.5-14.5) Platelet Count 338 x10^3/uL (140-400) Neutrophils (%) (Auto) 51 % (31-73) Lymphocytes (%) (Auto) 38 % (24-48) Monocytes (%) (Auto) 7 % (0-9) Eosinophils (%) (Auto) 4 % (0-3) Basophils (%) (Auto) 1 % (0-3) Neutrophils # (Auto) 3.5 x10^3uL (1.8-7.7) Lymphocytes # (Auto) 2.6 x10^3/uL (1.0-4.8) Monocytes # (Auto) 0.5 x10^3/uL (0.0-1.1) Eosinophils # (Auto) 0.3 x10^3/uL (0.0-0.7) Basophils # (Auto) 0.0 x10^3/uL (0.0-0.2) Prothrombin Time 13.2 SEC (11.7-14.0) Prothromb Time International Ratio 1.0 (0.8-1.1) Sodium Level 145 mmol/L (136-145) Potassium Level 3.9 mmol/L (3.5-5.1) Chloride Level 106 mmol/L (98-107) Carbon Dioxide Level 32 mmol/L (21-32) Anion Gap 7 (6-14) Blood Urea Nitrogen 33 mg/dL (7-20) Creatinine 0.9 mg/dL (0.6-1.0) Estimated GFR (Cockcroft-Gault) 64.8 BUN/Creatinine Ratio 37 (6-20) Glucose Level 62 mg/dL (70-99) Hemoglobin A1c 14.4 % (4.8-5.6) Calcium Level 10.3 mg/dL (8.5-10.1) Magnesium Level 1.9 mg/dL (1.8-2.4) Total Bilirubin 0.2 mg/dL (0.2-1.0) Aspartate Amino Transf (AST/SGOT) 17 U/L (15-37) Alanine Aminotransferase (ALT/SGPT) 20 U/L (14-59) Alkaline Phosphatase 106 U/L (46-116) Creatine Kinase 73 U/L (26-192) Creatine Kinase MB (Mass) 2.0 ng/mL (0.0-3.6) Creatine Kinase MB Relative Index % (0-4) Troponin I Quantitative < 0.017 ng/mL (0.000-0.055) VF-Vjo-P-Type Natriuretic Peptide 118 pg/mL (0-124) Total Protein 7.8 g/dL (6.4-8.2) Albumin 3.1 g/dL (3.4-5.0) Albumin/Globulin Ratio 0.7 (1.0-1.7) Thyroid Stimulating Hormone (TSH) 0.813 uIU/mL (0.358-3.74) Glucose (Fingerstick) 100 mg/dL (70-99) 293 mg/dL (70-99) Urine Collection Type Unknown Urine Color Yellow Urine Clarity Clear Urine pH 6.5 Urine Specific [place] 1.015 Urine Protein 30 mg/dL (NEG-TRACE) Urine Glucose (UA) 500 mg/dL (NEG) Urine Ketones (Stick) Negative mg/dL (NEG) Urine Blood Negative (NEG) Urine Nitrite Negative (NEG) Urine Bilirubin Negative (NEG) Urine Urobilinogen Dipstick 0.2 mg/dL (0.2 mg/dL) Urine Leukocyte Esterase Moderate (NEG) Urine RBC Occ /HPF (0-2) Urine WBC 11-20 /HPF (0-4) Urine Squamous Epithelial Cells Few /LPF Urine Bacteria Few /HPF (0-FEW) Urine Mucus Slight /LPF Urine Opiates Screen Neg (NEG) Urine Methadone Screen Neg (NEG) Urine Barbiturates Neg (NEG) Urine Phencyclidine Screen Neg (NEG) Urine Amphetamine/Methamphetamine Neg (NEG) Urine Benzodiazepines Screen Neg (NEG) Urine Cocaine Screen Neg (NEG) Urine Cannabinoids Screen Neg (NEG) Urine Ethyl Alcohol Neg (NEG) Test 06/08/18 06:40 White Blood Count 6.3 x10^3/uL (4.0-11.0) Red Blood Count 3.75 x10^6/uL (3.50-5.40) Hemoglobin 10.3 g/dL (12.0-15.5) Hematocrit 31.2 % (36.0-47.0) Mean Corpuscular Volume 83 fL (79-100) Mean Corpuscular Hemoglobin 27 pg (25-35) Mean Corpuscular Hemoglobin Concent 33 g/dL (31-37) Red Cell Distribution Width 13.3 % (11.5-14.5) Platelet Count 263 x10^3/uL (140-400) Neutrophils (%) (Auto) 52 % (31-73) Lymphocytes (%) (Auto) 37 % (24-48) Monocytes (%) (Auto) 7 % (0-9) Eosinophils (%) (Auto) 3 % (0-3) Basophils (%) (Auto) 1 % (0-3) Neutrophils # (Auto) 3.2 x10^3uL (1.8-7.7) Lymphocytes # (Auto) 2.3 x10^3/uL (1.0-4.8) Monocytes # (Auto) 0.5 x10^3/uL (0.0-1.1) Eosinophils # (Auto) 0.2 x10^3/uL (0.0-0.7) Basophils # (Auto) 0.0 x10^3/uL (0.0-0.2) Sodium Level 143 mmol/L (136-145) Potassium Level 4.2 mmol/L (3.5-5.1) Chloride Level 107 mmol/L (98-107) Carbon Dioxide Level 28 mmol/L (21-32) Anion Gap 8 (6-14) Blood Urea Nitrogen 24 mg/dL (7-20) Creatinine 0.7 mg/dL (0.6-1.0) Estimated GFR (Cockcroft-Gault) 86.6 Glucose Level 183 mg/dL (70-99) Calcium Level 8.9 mg/dL (8.5-10.1) IMAGES IMAGES CONCLUSION Tiolt table Pt c/o seeing white 2 minutes into standing, became anxious and tearful as test continued. AT 1233 pt appeared to lose consciousness, she complained of not being able to see and that everything was quite. The blood pressure initially dropped down to 57. He continued to monitor the patient was able to speak but stated that she could not see and was very limp and complaining that she was passing out. The patient then stated that she was feeling very poorly and her blood pressure jumped to 220/120 BP and Hr stayed in the 120's. Pt returned to lying position and HR and BP returned to baseline. Pt awake and alert and returned to room, RN notified. Dr Cox present throughout procedure. To me this patient may have an endocrine problem causing this orthostatic changes more than a neurocardiogenic syncope. There was no changes in the heart rate to any significant degree and no significant bradycardia. RECOMMENDATIONS I would recommend for this patient to have a consultation with an sack department supervisor so that they can evaluate her and see if we can figure out the etiology of her wide variations in the blood pressure as well as the syncopal episodes. DATE: 12/08/171837 IMPRESSION: US 1. Multiple enlarged thyroid the largest measuring 4.5 cm in the left lobe of the thyroid gland and 2.9 cm in the right lobe of thyroid gland. There is a 1.8 cm hyperechoic nodule identified in the left stenosis. Consider follow-up nuclear medicine thyroid uptake and scan for further evaluation given clinical history of hyperthyroidism. Fine-needle aspiration of these nodules may also be considered. DICTATED and SIGNED BY: POOL YOUNGER MD DATE: 05/04/18 1711 ECHOCARDIOGRAM ECHOCARDIOGRAM <Conclusion> The left ventricular systolic function is normal and the ejection fraction is within normal range. EF 55% There is normal LV segmental wall motion. DATE: 11/05/17 1600 ASSESSMENT/PLAN ASSESSMENT/PLAN 1. Presyncope: due to orthostasis with associated dehydration 2. Hyperthyroidism/Multiple thyroid nodules: on methimazole. TSH on goal 3. DPN/autonomic neuropathy 4. Hx of orthostatic hypotension; was off florinef since 03/2018 5. Uncontrolled DM: A1C 14.4 6. Prerenal azotemia: due to dehydration 7. UTI: per PCP Recommendations 1. Agree with restarting florinef. Abd binder and will repeat orthostatic readings. Discussed with pt and RN. 2. Continue to push po hydration. 3. Discussed about pathophysiology of orthostasis, will need to slow positional changes. LISETTE COHEN MD 06/08/182136: CARDIAC CONSULT ASSESSMENT/PLAN ASSESSMENT/PLAN Pt. seen and examined. Agree with above [place] note. Severe diabetic neuropathy. Supportive care as noted above. Consider outpt monitor CHIDI HERRERA APRN Jun 08, 2018 10:57 LISETTE COHEN MD Jun 08, 2018 21:37
[2018-06-08 11:31] LABS: CHOLESTEROL/HDL RATIO 3.3
--- NOTE | 2018-06-08 12:33 | PDOC ---
PROGRESS NOTES Chief Complaint Chief Complaint LEFT lower lobe pneumonitis marked orthostatic hypotension; hx of adrenal insuff? Dm2, mod control prior CVA hypoglycemia ECHO 10/2017 The left ventricular systolic function is normal and the ejection fraction is within normal range. EF 55% There is normal LV segmental wall motion. Vertigo Claustrophobia HX falls FAll risk History of Present Illness History of Present Illness Still gets dizzy on ambulation Has been off of fludrocortisone for 1-2 months now-was taken off by Samantha because her blood pressure was 177 systolic at home He was taking fludrocortisone 0.1 mg once a day for maybe 6-7 months Blood pressure here 144 but still vertiginous especially on sitting up Discussed with neurology - wants an MRI She thinks she is claustrophobic needs to be sedated prior to MRI She follow-ups at [facility] endocrine for her diabetes on Novolin 70/30 anywhere between 25-45 units in the morning and 15 units at night Also follows with endocrinology [facility] for hyperthyroidism on Tapazole - TSH is at goal here Plan: check cortisol in the morning Hold of fludrocortisone for now as blood pressure is 144 systolic MRI brain Ativan 2 mgs 20 minutes prior to MRI Humulin 70/30 is a substitute 15 twice a day for now Fall risk Discussed with neurology and patient Vitals Vitals Vital Signs Date Time Temp Pulse Resp B/P (MAP) Pulse Ox O2 Delivery O2 Flow Rate FiO2 06/08/18 10:19 91 142/88 (106) 06/08/18 10:19 98.0 18 100 Room Air 98.0 Physical Exam General: Alert, Oriented X3, Cooperative, No acute distress Heart: Regular rate (SR/ST) Lungs: Clear Abdomen: Soft, No tenderness Extremities: No cyanosis, No edema Skin: No breakdown, Other (multipel LE scabs) Labs LABS Laboratory Tests Test 06/07/18 15:00 06/07/18 20:49 06/07/18 21:00 06/08/18 00:36 White Blood Count 6.9 x10^3/uL (4.0-11.0) Red Blood Count 4.26 x10^6/uL (3.50-5.40) Hemoglobin 11.5 g/dL (12.0-15.5) Hematocrit 35.4 % (36.0-47.0) Mean Corpuscular Volume 83 fL (79-100) Mean Corpuscular Hemoglobin 27 pg (25-35) Mean Corpuscular Hemoglobin Concent 33 g/dL (31-37) Red Cell Distribution Width 13.5 % (11.5-14.5) Platelet Count 338 x10^3/uL (140-400) Neutrophils (%) (Auto) 51 % (31-73) Lymphocytes (%) (Auto) 38 % (24-48) Monocytes (%) (Auto) 7 % (0-9) Eosinophils (%) (Auto) 4 % (0-3) Basophils (%) (Auto) 1 % (0-3) Neutrophils # (Auto) 3.5 x10^3uL (1.8-7.7) Lymphocytes # (Auto) 2.6 x10^3/uL (1.0-4.8) Monocytes # (Auto) 0.5 x10^3/uL (0.0-1.1) Eosinophils # (Auto) 0.3 x10^3/uL (0.0-0.7) Basophils # (Auto) 0.0 x10^3/uL (0.0-0.2) Prothrombin Time 13.2 SEC (11.7-14.0) Prothromb Time International Ratio 1.0 (0.8-1.1) Sodium Level 145 mmol/L (136-145) Potassium Level 3.9 mmol/L (3.5-5.1) Chloride Level 106 mmol/L (98-107) Carbon Dioxide Level 32 mmol/L (21-32) Anion Gap 7 (6-14) Blood Urea Nitrogen 33 mg/dL (7-20) Creatinine 0.9 mg/dL (0.6-1.0) Estimated GFR (Cockcroft-Gault) 64.8 BUN/Creatinine Ratio 37 (6-20) Glucose Level 62 mg/dL (70-99) Hemoglobin A1c 14.4 % (4.8-5.6) Calcium Level 10.3 mg/dL (8.5-10.1) Magnesium Level 1.9 mg/dL (1.8-2.4) Total Bilirubin 0.2 mg/dL (0.2-1.0) Aspartate Amino Transf (AST/SGOT) 17 U/L (15-37) Alanine Aminotransferase (ALT/SGPT) 20 U/L (14-59) Alkaline Phosphatase 106 U/L (46-116) Creatine Kinase 73 U/L (26-192) Creatine Kinase MB (Mass) 2.0 ng/mL (0.0-3.6) Creatine Kinase MB Relative Index % (0-4) Troponin I Quantitative < 0.017 ng/mL (0.000-0.055) AS-Gvg-B-Type Natriuretic Peptide 118 pg/mL (0-124) Total Protein 7.8 g/dL (6.4-8.2) Albumin 3.1 g/dL (3.4-5.0) Albumin/Globulin Ratio 0.7 (1.0-1.7) Thyroid Stimulating Hormone (TSH) 0.813 uIU/mL (0.358-3.74) Glucose (Fingerstick) 100 mg/dL (70-99) 293 mg/dL (70-99) Urine Collection Type Unknown Urine Color Yellow Urine Clarity Clear Urine pH 6.5 Urine Specific [place] 1.015 Urine Protein 30 mg/dL (NEG-TRACE) Urine Glucose (UA) 500 mg/dL (NEG) Urine Ketones (Stick) Negative mg/dL (NEG) Urine Blood Negative (NEG) Urine Nitrite Negative (NEG) Urine Bilirubin Negative (NEG) Urine Urobilinogen Dipstick 0.2 mg/dL (0.2 mg/dL) Urine Leukocyte Esterase Moderate (NEG) Urine RBC Occ /HPF (0-2) Urine WBC 11-20 /HPF (0-4) Urine Squamous Epithelial Cells Few /LPF Urine Bacteria Few /HPF (0-FEW) Urine Mucus Slight /LPF Urine Opiates Screen Neg (NEG) Urine Methadone Screen Neg (NEG) Urine Barbiturates Neg (NEG) Urine Phencyclidine Screen Neg (NEG) Urine Amphetamine/Methamphetamine Neg (NEG) Urine Benzodiazepines Screen Neg (NEG) Urine Cocaine Screen Neg (NEG) Urine Cannabinoids Screen Neg (NEG) Urine Ethyl Alcohol Neg (NEG) Test 06/08/18 06:40 06/08/18 11:32 White Blood Count 6.3 x10^3/uL (4.0-11.0) Red Blood Count 3.75 x10^6/uL (3.50-5.40) Hemoglobin 10.3 g/dL (12.0-15.5) Hematocrit 31.2 % (36.0-47.0) Mean Corpuscular Volume 83 fL (79-100) Mean Corpuscular Hemoglobin 27 pg (25-35) Mean Corpuscular Hemoglobin Concent 33 g/dL (31-37) Red Cell Distribution Width 13.3 % (11.5-14.5) Platelet Count 263 x10^3/uL (140-400) Neutrophils (%) (Auto) 52 % (31-73) Lymphocytes (%) (Auto) 37 % (24-48) Monocytes (%) (Auto) 7 % (0-9) Eosinophils (%) (Auto) 3 % (0-3) Basophils (%) (Auto) 1 % (0-3) Neutrophils # (Auto) 3.2 x10^3uL (1.8-7.7) Lymphocytes # (Auto) 2.3 x10^3/uL (1.0-4.8) Monocytes # (Auto) 0.5 x10^3/uL (0.0-1.1) Eosinophils # (Auto) 0.2 x10^3/uL (0.0-0.7) Basophils # (Auto) 0.0 x10^3/uL (0.0-0.2) Sodium Level 143 mmol/L (136-145) Potassium Level 4.2 mmol/L (3.5-5.1) Chloride Level 107 mmol/L (98-107) Carbon Dioxide Level 28 mmol/L (21-32) Anion Gap 8 (6-14) Blood Urea Nitrogen 24 mg/dL (7-20) Creatinine 0.7 mg/dL (0.6-1.0) Estimated GFR (Cockcroft-Gault) 86.6 Glucose Level 183 mg/dL (70-99) Calcium Level 8.9 mg/dL (8.5-10.1) Triglycerides Level 107 mg/dL (0-150) Cholesterol Level 158 mg/dL (0-200) LDL Cholesterol, Calculated 89 mg/dL (0-100) VLDL Cholesterol, Calculated 21 mg/dL (0-40) Non-HDL Cholesterol Calculated 110 mg/dL (0-129) HDL Cholesterol 48 mg/dL (40-60) Cholesterol/HDL Ratio 3.3 Glucose (Fingerstick) 284 mg/dL (70-99) Review of Systems Review of Systems Dizzy, the rest of ROS 14 point negative Assessment and Plan Assessmemt and Plan Problems Medical Problems: (1) Fever Status: Acute (2) Hypotension Status: Acute (3) Left lower lobe pneumonia Status: Acute (4) Vertigo Status: Acute Comment Review of Relevant I have reviewed the following items zurdo (where applicable) has been applied. Labs Laboratory Tests Test 06/07/18 15:00 06/07/18 20:49 06/07/18 21:00 06/08/18 00:36 White Blood Count 6.9 x10^3/uL (4.0-11.0) Red Blood Count 4.26 x10^6/uL (3.50-5.40) Hemoglobin 11.5 g/dL (12.0-15.5) Hematocrit 35.4 % (36.0-47.0) Mean Corpuscular Volume 83 fL (79-100) Mean Corpuscular Hemoglobin 27 pg (25-35) Mean Corpuscular Hemoglobin Concent 33 g/dL (31-37) Red Cell Distribution Width 13.5 % (11.5-14.5) Platelet Count 338 x10^3/uL (140-400) Neutrophils (%) (Auto) 51 % (31-73) Lymphocytes (%) (Auto) 38 % (24-48) Monocytes (%) (Auto) 7 % (0-9) Eosinophils (%) (Auto) 4 % (0-3) Basophils (%) (Auto) 1 % (0-3) Neutrophils # (Auto) 3.5 x10^3uL (1.8-7.7) Lymphocytes # (Auto) 2.6 x10^3/uL (1.0-4.8) Monocytes # (Auto) 0.5 x10^3/uL (0.0-1.1) Eosinophils # (Auto) 0.3 x10^3/uL (0.0-0.7) Basophils # (Auto) 0.0 x10^3/uL (0.0-0.2) Prothrombin Time 13.2 SEC (11.7-14.0) Prothromb Time International Ratio 1.0 (0.8-1.1) Sodium Level 145 mmol/L (136-145) Potassium Level 3.9 mmol/L (3.5-5.1) Chloride Level 106 mmol/L (98-107) Carbon Dioxide Level 32 mmol/L (21-32) Anion Gap 7 (6-14) Blood Urea Nitrogen 33 mg/dL (7-20) Creatinine 0.9 mg/dL (0.6-1.0) Estimated GFR (Cockcroft-Gault) 64.8 BUN/Creatinine Ratio 37 (6-20) Glucose Level 62 mg/dL (70-99) Hemoglobin A1c 14.4 % (4.8-5.6) Calcium Level 10.3 mg/dL (8.5-10.1) Magnesium Level 1.9 mg/dL (1.8-2.4) Total Bilirubin 0.2 mg/dL (0.2-1.0) Aspartate Amino Transf (AST/SGOT) 17 U/L (15-37) Alanine Aminotransferase (ALT/SGPT) 20 U/L (14-59) Alkaline Phosphatase 106 U/L (46-116) Creatine Kinase 73 U/L (26-192) Creatine Kinase MB (Mass) 2.0 ng/mL (0.0-3.6) Creatine Kinase MB Relative Index % (0-4) Troponin I Quantitative < 0.017 ng/mL (0.000-0.055) KO-[id number]-Type Natriuretic Peptide 118 pg/mL (0-124) Total Protein 7.8 g/dL (6.4-8.2) Albumin 3.1 g/dL (3.4-5.0) Albumin/Globulin Ratio 0.7 (1.0-1.7) Thyroid Stimulating Hormone (TSH) 0.813 uIU/mL (0.358-3.74) Glucose (Fingerstick) 100 mg/dL (70-99) 293 mg/dL (70-99) Urine Collection Type Unknown Urine Color Yellow Urine Clarity Clear Urine pH 6.5 Urine Specific [place] 1.015 Urine Protein 30 mg/dL (NEG-TRACE) Urine Glucose (UA) 500 mg/dL (NEG) Urine Ketones (Stick) Negative mg/dL (NEG) Urine Blood Negative (NEG) Urine Nitrite Negative (NEG) Urine Bilirubin Negative (NEG) Urine Urobilinogen Dipstick 0.2 mg/dL (0.2 mg/dL) Urine Leukocyte Esterase Moderate (NEG) Urine RBC Occ /HPF (0-2) Urine WBC 11-20 /HPF (0-4) Urine Squamous Epithelial Cells Few /LPF Urine Bacteria Few /HPF (0-FEW) Urine Mucus Slight /LPF Urine Opiates Screen Neg (NEG) Urine Methadone Screen Neg (NEG) Urine Barbiturates Neg (NEG) Urine Phencyclidine Screen Neg (NEG) Urine Amphetamine/Methamphetamine Neg (NEG) Urine Benzodiazepines Screen Neg (NEG) Urine Cocaine Screen Neg (NEG) Urine Cannabinoids Screen Neg (NEG) Urine Ethyl Alcohol Neg (NEG) Test 06/08/18 06:40 06/08/18 11:32 White Blood Count 6.3 x10^3/uL (4.0-11.0) Red Blood Count 3.75 x10^6/uL (3.50-5.40) Hemoglobin 10.3 g/dL (12.0-15.5) Hematocrit 31.2 % (36.0-47.0) Mean Corpuscular Volume 83 fL (79-100) Mean Corpuscular Hemoglobin 27 pg (25-35) Mean Corpuscular Hemoglobin Concent 33 g/dL (31-37) Red Cell Distribution Width 13.3 % (11.5-14.5) Platelet Count 263 x10^3/uL (140-400) Neutrophils (%) (Auto) 52 % (31-73) Lymphocytes (%) (Auto) 37 % (24-48) Monocytes (%) (Auto) 7 % (0-9) Eosinophils (%) (Auto) 3 % (0-3) Basophils (%) (Auto) 1 % (0-3) Neutrophils # (Auto) 3.2 x10^3uL (1.8-7.7) Lymphocytes # (Auto) 2.3 x10^3/uL (1.0-4.8) Monocytes # (Auto) 0.5 x10^3/uL (0.0-1.1) Eosinophils # (Auto) 0.2 x10^3/uL (0.0-0.7) Basophils # (Auto) 0.0 x10^3/uL (0.0-0.2) Sodium Level 143 mmol/L (136-145) Potassium Level 4.2 mmol/L (3.5-5.1) Chloride Level 107 mmol/L (98-107) Carbon Dioxide Level 28 mmol/L (21-32) Anion Gap 8 (6-14) Blood Urea Nitrogen 24 mg/dL (7-20) Creatinine 0.7 mg/dL (0.6-1.0) Estimated GFR (Cockcroft-Gault) 86.6 Glucose Level 183 mg/dL (70-99) Calcium Level 8.9 mg/dL (8.5-10.1) Triglycerides Level 107 mg/dL (0-150) Cholesterol Level 158 mg/dL (0-200) LDL Cholesterol, Calculated 89 mg/dL (0-100) VLDL Cholesterol, Calculated 21 mg/dL (0-40) Non-HDL Cholesterol Calculated 110 mg/dL (0-129) HDL Cholesterol 48 mg/dL (40-60) Cholesterol/HDL Ratio 3.3 Glucose (Fingerstick) 284 mg/dL (70-99) Laboratory Tests Test 06/07/18 15:00 06/07/18 20:49 06/07/18 21:00 06/08/18 00:36 White Blood Count 6.9 x10^3/uL (4.0-11.0) Red Blood Count 4.26 x10^6/uL (3.50-5.40) Hemoglobin 11.5 g/dL (12.0-15.5) Hematocrit 35.4 % (36.0-47.0) Mean Corpuscular Volume 83 fL (79-100) Mean Corpuscular Hemoglobin 27 pg (25-35) Mean Corpuscular Hemoglobin Concent 33 g/dL (31-37) Red Cell Distribution Width 13.5 % (11.5-14.5) Platelet Count 338 x10^3/uL (140-400) Neutrophils (%) (Auto) 51 % (31-73) Lymphocytes (%) (Auto) 38 % (24-48) Monocytes (%) (Auto) 7 % (0-9) Eosinophils (%) (Auto) 4 % (0-3) Basophils (%) (Auto) 1 % (0-3) Neutrophils # (Auto) 3.5 x10^3uL (1.8-7.7) Lymphocytes # (Auto) 2.6 x10^3/uL (1.0-4.8) Monocytes # (Auto) 0.5 x10^3/uL (0.0-1.1) Eosinophils # (Auto) 0.3 x10^3/uL (0.0-0.7) Basophils # (Auto) 0.0 x10^3/uL (0.0-0.2) Prothrombin Time 13.2 SEC (11.7-14.0) Prothromb Time International Ratio 1.0 (0.8-1.1) Sodium Level 145 mmol/L (136-145) Potassium Level 3.9 mmol/L (3.5-5.1) Chloride Level 106 mmol/L (98-107) Carbon Dioxide Level 32 mmol/L (21-32) Anion Gap 7 (6-14) Blood Urea Nitrogen 33 mg/dL (7-20) Creatinine 0.9 mg/dL (0.6-1.0) Estimated GFR (Cockcroft-Gault) 64.8 BUN/Creatinine Ratio 37 (6-20) Glucose Level 62 mg/dL (70-99) Hemoglobin A1c 14.4 % (4.8-5.6) Calcium Level 10.3 mg/dL (8.5-10.1) Magnesium Level 1.9 mg/dL (1.8-2.4) Total Bilirubin 0.2 mg/dL (0.2-1.0) Aspartate Amino Transf (AST/SGOT) 17 U/L (15-37) Alanine Aminotransferase (ALT/SGPT) 20 U/L (14-59) Alkaline Phosphatase 106 U/L (46-116) Creatine Kinase 73 U/L (26-192) Creatine Kinase MB (Mass) 2.0 ng/mL (0.0-3.6) Creatine Kinase MB Relative Index % (0-4) Troponin I Quantitative < 0.017 ng/mL (0.000-0.055) VI-Pxn-C-Type Natriuretic Peptide 118 pg/mL (0-124) Total Protein 7.8 g/dL (6.4-8.2) Albumin 3.1 g/dL (3.4-5.0) Albumin/Globulin Ratio 0.7 (1.0-1.7) Thyroid Stimulating Hormone (TSH) 0.813 uIU/mL (0.358-3.74) Glucose (Fingerstick) 100 mg/dL (70-99) 293 mg/dL (70-99) Urine Collection Type Unknown Urine Color Yellow Urine Clarity Clear Urine pH 6.5 Urine Specific [place] 1.015 Urine Protein 30 mg/dL (NEG-TRACE) Urine Glucose (UA) 500 mg/dL (NEG) Urine Ketones (Stick) Negative mg/dL (NEG) Urine Blood Negative (NEG) Urine Nitrite Negative (NEG) Urine Bilirubin Negative (NEG) Urine Urobilinogen Dipstick 0.2 mg/dL (0.2 mg/dL) Urine Leukocyte Esterase Moderate (NEG) Urine RBC Occ /HPF (0-2) Urine WBC 11-20 /HPF (0-4) Urine Squamous Epithelial Cells Few /LPF Urine Bacteria Few /HPF (0-FEW) Urine Mucus Slight /LPF Urine Opiates Screen Neg (NEG) Urine Methadone Screen Neg (NEG) Urine Barbiturates Neg (NEG) Urine Phencyclidine Screen Neg (NEG) Urine Amphetamine/Methamphetamine Neg (NEG) Urine Benzodiazepines Screen Neg (NEG) Urine Cocaine Screen Neg (NEG) Urine Cannabinoids Screen Neg (NEG) Urine Ethyl Alcohol Neg (NEG) Test 06/08/18 06:40 06/08/18 11:32 White Blood Count 6.3 x10^3/uL (4.0-11.0) Red Blood Count 3.75 x10^6/uL (3.50-5.40) Hemoglobin 10.3 g/dL (12.0-15.5) Hematocrit 31.2 % (36.0-47.0) Mean Corpuscular Volume 83 fL (79-100) Mean Corpuscular Hemoglobin 27 pg (25-35) Mean Corpuscular Hemoglobin Concent 33 g/dL (31-37) Red Cell Distribution Width 13.3 % (11.5-14.5) Platelet Count 263 x10^3/uL (140-400) Neutrophils (%) (Auto) 52 % (31-73) Lymphocytes (%) (Auto) 37 % (24-48) Monocytes (%) (Auto) 7 % (0-9) Eosinophils (%) (Auto) 3 % (0-3) Basophils (%) (Auto) 1 % (0-3) Neutrophils # (Auto) 3.2 x10^3uL (1.8-7.7) Lymphocytes # (Auto) 2.3 x10^3/uL (1.0-4.8) Monocytes # (Auto) 0.5 x10^3/uL (0.0-1.1) Eosinophils # (Auto) 0.2 x10^3/uL (0.0-0.7) Basophils # (Auto) 0.0 x10^3/uL (0.0-0.2) Sodium Level 143 mmol/L (136-145) Potassium Level 4.2 mmol/L (3.5-5.1) Chloride Level 107 mmol/L (98-107) Carbon Dioxide Level 28 mmol/L (21-32) Anion Gap 8 (6-14) Blood Urea Nitrogen 24 mg/dL (7-20) Creatinine 0.7 mg/dL (0.6-1.0) Estimated GFR (Cockcroft-Gault) 86.6 Glucose Level 183 mg/dL (70-99) Calcium Level 8.9 mg/dL (8.5-10.1) Triglycerides Level 107 mg/dL (0-150) Cholesterol Level 158 mg/dL (0-200) LDL Cholesterol, Calculated 89 mg/dL (0-100) VLDL Cholesterol, Calculated 21 mg/dL (0-40) Non-HDL Cholesterol Calculated 110 mg/dL (0-129) HDL Cholesterol 48 mg/dL (40-60) Cholesterol/HDL Ratio 3.3 Glucose (Fingerstick) 284 mg/dL (70-99) Medications Current Medications Meclizine HCl (Antivert) 25 mg 1X ONCE PO Last administered on 06/07/18at 15:36 ; Start 06/07/18 at 15:00; Stop 06/07/18 at 15:03; Status DC Sodium Chloride 1,000 ml @ 1,000 mls/hr 1X ONCE IV Last administered on at 15:36; Start 06/07/18 at 15:00; Stop 06/07/18 at 15:59; Status DC Ondansetron HCl (Zofran) 4 mg 1X ONCE IV Last administered on 06/07/18at 15:37 ; Start 06/07/18 at 15:00; Stop 06/07/18 at 15:03; Status DC Multi-Ingredient Mouthwash/Gargle (Gi Cocktail) 20 ml 1X ONCE SWSW Last administered on 06/07/18at 15:46; Start 06/07/18 at 15:45; Stop 06/07/18 at 15:46 ; Status DC Ceftriaxone Sodium (Rocephin) 1 gm 1X ONCE IVP Last administered on 06/07/18at 16:17; Start 06/07/18 at 16:00; Stop 06/07/18 at 16:01; Status DC Azithromycin 250 ml @ 250 mls/hr 1X ONCE IV Last administered on 06/07/18at 16 :22; Start 06/07/18 at 16:00; Stop 06/07/18 at 16:59; Status DC Ondansetron HCl (Zofran) 4 mg PRN Q8HRS PRN IV NAUSEA/VOMITING; Start 06/07/18 at 17:15; Stop 06/08/18 at 09:05; Status DC Acetaminophen (Tylenol) 650 mg PRN Q4HRS PRN PO FEVER Last administered on 06/08at 03:04; Start 06/07/18 at 17:15; Stop 06/08/18 at 17:14 Sodium Chloride 1,000 ml @ 125 mls/hr 1X ONCE IV Last administered on at 22:16; Start 06/07/18 at 17:15; Stop 06/08/18 at 01:14; Status DC Meclizine HCl (Antivert) 25 mg TID PRN PO DIZZINESS; Start 06/07/18 at 17:15; Stop 06/07/18 at 17:21; Status DC Meclizine HCl (Antivert) 25 mg PRN TID PRN PO DIZZINESS; Start 06/07/18 at 17: 30 Fludrocortisone Acetate (Florinef) 0.1 mg BID PO Last administered on at 08:58; Start 06/07/18 at 21:00; Stop 06/08/18 at 09:13; Status DC Atorvastatin Calcium (Lipitor) 5 mg QHS PO ; Start 06/07/18 at 21:00 Non-Formulary Medication (Meclizine Hcl ) 1 tab TID PRN PO DIZZINESS; Start 04/13 at 17:30; Status UNV Insulin Human Lispro (HumaLOG) 0-5 UNITS TIDWMEALS SQ Last administered on 06/08at 12:16; Start 06/08/18 at 08:00 Dextrose (Dextrose 50%-Water Syringe) 12.5 gm PRN Q15MIN PRN IV SEE COMMENTS; Start 06/07/18 at 17:30 Gabapentin (Neurontin) 300 mg HS PO Last administered on 06/07/18at 23:42; Start 06/07/18 at 23:00 Ondansetron HCl (Zofran) 4 mg PRN Q6HRS PRN IV NAUSEA/VOMITING; Start 06/08/18 at 09:15 Levofloxacin (Levaquin) 500 mg DAILY06 PO ; Start 06/09/18 at 06:00 Levofloxacin (Levaquin) 500 mg 1X ONCE PO Last administered on 06/08/18at 09:59 ; Start 06/08/18 at 09:15; Stop 06/08/18 at 09:16; Status DC Fludrocortisone Acetate (Florinef) 0.1 mg DAILY PO ; Start 06/09/18 at 09:00; Stop 06/09/18 at 09:00; Status DC Gabapentin (Neurontin) 300 mg HS PO ; Start 06/08/18 at 21:00; Stop 06/08/18 at 21:00; Status DC Amitriptyline HCl (Elavil) 100 mg QHS PO ; Start 06/08/18 at 21:00 Methimazole (Tapazole) 5 mg DAILY08 PO Last administered on 06/08/18at 09:59; Start 06/08/18 at 09:30 Active Scripts Active Prednisone 20 Mg Tablet 2 Tab PO DAILY Start 40mg daily on 05/16/18 Levaquin (Levofloxacin) 500 Mg Tablet 1 Tab PO DAILY Meclizine Hcl 25 Mg Tablet 1 Tab PO TID PRN Macrobid 100 Mg Capsule (Nitrofurantoin Monohyd/M-Cryst) 100 Mg Capsule 1 Cap PO BID Bactrim Ds Tablet (Sulfamethoxazole/Trimethoprim) 1 Each Tablet 1 Tab PO BID Fludrocortisone Acetate 0.1 Mg Tablet 0.1 Mg PO BID Fludrocortisone Acetate 0.1 Mg Tablet 0.1 Mg PO DAILY Levemir Flextouch (Insulin Detemir) 300 Units/3 Ml Insuln.pen 30 Units SQ QHS Novolog Flexpen (Insulin Aspart) 300 Units/3 Ml Insuln.pen 10 Units SQ TIDAC Reported Methimazole 5 Mg Tablet 5 Mg PO DAILY08 Gabapentin (Gabapentin) 300 Mg Capsule 300 Mg PO HS Amitriptyline Hcl 100 Mg Tablet 1 Tab PO QHS Lovastatin 20 Mg Tablet 1 Tab PO DAILY Vitals/I & O Vital Sign - Last 24 Hours 06/07/18 06/07/18 06/07/18 06/07/18 14:51 15:00 15:30 16:00 Temp 98.3 98.3 Pulse 101 100 101 101 Resp 18 19 19 20 B/P (MAP) 109/63 (78) Pulse Ox 99 99 99 99 O2 Delivery Room Air 06/07/18 06/07/18 06/07/18 06/07/18 16:30 17:00 17:30 18:30 Pulse 100 104 101 100 Resp 20 20 20 18 Pulse Ox 99 100 100 99 06/07/18 06/07/18 06/07/18 06/08/18 20:00 20:26 23:37 03:08 Temp 97.9 98.5 97.9 98.5 Pulse 103 101 93 Resp 16 16 16 B/P (MAP) 168/91 (116) 159/89 (112) 138/68 (91) Pulse Ox 100 97 97 O2 Delivery Room Air Room Air Room Air Room Air 06/08/18 06/08/18 06/08/18 06/08/18 07:35 08:00 10:19 10:19 Temp 98.0 98.0 98.0 98.0 Pulse 87 93 90 Resp 18 18 B/P (MAP) 130/80 (97) 148/92 (110) 112/70 (84) Pulse Ox 98 100 O2 Delivery Room Air Room Air Room Air 06/08/18 10:19 Pulse 91 B/P (MAP) 142/88 (106) Intake and Output 06/07/18 06/07/18 06/08/18 15:00 23:00 07:00 Intake Total 240 ml 600 ml Balance 240 ml 600 ml REGINA DAVID MD Jun 08, 2018 12:33
--- NOTE | 2018-06-08 14:13 | EKG ---
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
--- NOTE | 2018-06-08 18:02 | PDOC2 ---
NEUROLOGY CONSULT Date of Admission Date of Admission DATE: 06/08/18 TIME: 17:49 Reason for Consult Reason for Consult: IMPRESSION: Near syncope. Worsening of ataxia. Dizziness. Hypotension events. Falls. HTN. DM Hyperglycemia, Hgb A1C 14.4 HLD. UTI. RECOMMENDATIONS/PLAN: Brain MRI w/o contrast. Control hyperglycemia. Maintain normal BP. Continue Lipitor HS. ASA 81 mg daily, fall concerns for high dose. Lab: see orders. HISTORY OF THE PRESENT ILLNESS: 58-y-old female with above medical diseases has been having symptoms of ataxia and frequent falls for about 8 months. She stated she was often off balance and fell multiple times. Her ataxia became worse recently with dizziness and vertigo sense. PAST MEDICAL HISTORY Cardiovascular: HTN, Hyperlipidemia, orthostasis, neurocardiogenic syncope CENTRAL NERVOUS SYSTEM: Periperal neuropathy (including autonomic neuropathy), TIA Psych: Anxiety, Depression Renal/: UTI, Urinary Incontinence Endocrine: Diabetes (1), Multiple thyroid nodules PAST SURGICAL HISTORY Foot surgery. FAMILY HISTORY Diabetes SOCIAL HISTORY Smoke: No ALCOHOL: none Drugs: None Lives: with Family ALLERGIES Coded Allergies: raspberry (Verified Allergy, Severe, CHOKING SENSATION IN THROAT, 10/25/15) amoxicillin (Verified Allergy, Intermediate, 10/13/17) aspirin (Verified Allergy, Intermediate, 10/13/17) codeine (Verified Allergy, Intermediate, 10/13/17) ibuprofen (Verified Allergy, Intermediate, 10/13/17) morphine (Verified Allergy, Intermediate, 10/13/17) MEDICATIONS: Refer to MAR REVIEW OF SYSTEMS: Constitutional: No malnutrition, weight loss, cachexia. Head: No traumatic brain or head injury. Skin: No edema, or rash. Ear: No infection. Eyes: No vision loss or color blindness. Nose: No bleeding or purulent discharges. Hearing: No hearing decrease. Neck: No injury. Breast: No history of cancer, masses,or discharges. Cardiac: HTN, HLD. Pulmonary: No COPD. GI: No GI ulcer, GI bleeding. Urinary/genital: UTI. Endocrinologic: Diabetes Mellitus. Skeletomuscular: No muscular atrophy. Neurological: see HP. Psychiatric: Denies drug use/abuse. Otherwise, not [id number] review of systems. PHYSICAL EXAMINATION: General appearance is in subacute distress. HEENT: Normocephalic and nontraumatic. Eyes, nose, ears, and throat are unremarkable. Neck is supple. No lymphadenopathy. No bruits are heard over the carotid artery. No crepitus. Cardiovascular: S1, S2, regular rate and rhythm. Pulmonary: Clear to auscultation bilaterally. Abdomen: Bowel sounds are positive. Abdomen is soft, nontender, and nondistended. Extremities: No rash, lesions, or edema. No restriction of range of motion NEUROLOGICAL EXAMINATION: Awake. Oriented to time, place and person. PERRL. EOMI. CN: no focal findings. Muscle tone: within normal. Muscle strength: 4 DTR: 2 UE, 1 at knee. Plantar reflex: Neutral response bilaterally Gait: not examined in bed. Sensory exam: no abnormal findings. No cerebellar signs elicited. F-T-N test fine. Current Medications Current Medications Current Medications Meclizine HCl (Antivert) 25 mg 1X ONCE PO Last administered on 06/07/18 15:36 ; Start 06/07/18 at 15:00; Stop 06/07/18 at 15:03; Status DC Sodium Chloride 1,000 ml @ 1,000 mls/hr 1X ONCE IV Last administered on 15:36; Start 06/07/18 at 15:00; Stop 06/07/18 at 15:59; Status DC Ondansetron HCl (Zofran) 4 mg 1X ONCE IV Last administered on 06/07/18 15:37 ; Start 06/07/18 at 15:00; Stop 06/07/18 at 15:03; Status DC Multi-Ingredient Mouthwash/Gargle (Gi Cocktail) 20 ml 1X ONCE SWSW Last administered on 06/07/18 15:46; Start 06/07/18 at 15:45; Stop 06/07/18 at 15:46 ; Status DC Ceftriaxone Sodium (Rocephin) 1 gm 1X ONCE IVP Last administered on 06/07/18 16:17; Start 06/07/18 at 16:00; Stop 06/07/18 at 16:01; Status DC Azithromycin 250 ml @ 250 mls/hr 1X ONCE IV Last administered on 06/07/18 16 :22; Start 06/07/18 at 16:00; Stop 06/07/18 at 16:59; Status DC Ondansetron HCl (Zofran) 4 mg PRN Q8HRS PRN IV NAUSEA/VOMITING; Start 06/07/18 at 17:15; Stop 06/08/18 at 09:05; Status DC Acetaminophen (Tylenol) 650 mg PRN Q4HRS PRN PO FEVER Last administered on 06/08at 13:41; Start 06/07/18 at 17:15; Stop 06/08/18 at 17:14; Status DC Sodium Chloride 1,000 ml @ 125 mls/hr 1X ONCE IV Last administered on at 22:16; Start 06/07/18 at 17:15; Stop 06/08/18 at 01:14; Status DC Meclizine HCl (Antivert) 25 mg TID PRN PO DIZZINESS; Start 06/07/18 at 17:15; Stop 06/07/18 at 17:21; Status DC Meclizine HCl (Antivert) 25 mg PRN TID PRN PO DIZZINESS; Start 06/07/18 at 17: 30 Fludrocortisone Acetate (Florinef) 0.1 mg BID PO Last administered on at 08:58; Start 06/07/18 at 21:00; Stop 06/08/18 at 09:13; Status DC Atorvastatin Calcium (Lipitor) 5 mg QHS PO ; Start 06/07/18 at 21:00 Non-Formulary Medication (Meclizine Hcl ) 1 tab TID PRN PO DIZZINESS; Start 04/13 at 17:30; Status UNV Insulin Human Lispro (HumaLOG) 0-5 UNITS TIDWMEALS SQ Last administered on 06/08at 12:16; Start 06/08/18 at 08:00 Dextrose (Dextrose 50%-Water Syringe) 12.5 gm PRN Q15MIN PRN IV SEE COMMENTS; Start 06/07/18 at 17:30 Gabapentin (Neurontin) 300 mg HS PO Last administered on 06/07/18at 23:42; Start 06/07/18 at 23:00 Ondansetron HCl (Zofran) 4 mg PRN Q6HRS PRN IV NAUSEA/VOMITING Last administered on 06/08/18at 13:41; Start 06/08/18 at 09:15 Levofloxacin (Levaquin) 500 mg DAILY06 PO ; Start 06/09/18 at 06:00 Levofloxacin (Levaquin) 500 mg 1X ONCE PO Last administered on 06/08/18at 09:59 ; Start 06/08/18 at 09:15; Stop 06/08/18 at 09:16; Status DC Fludrocortisone Acetate (Florinef) 0.1 mg DAILY PO ; Start 06/09/18 at 09:00; Stop 06/09/18 at 09:00; Status DC Gabapentin (Neurontin) 300 mg HS PO ; Start 06/08/18 at 21:00; Stop 06/08/18 at 21:00; Status DC Amitriptyline HCl (Elavil) 100 mg QHS PO ; Start 06/08/18 at 21:00 Methimazole (Tapazole) 5 mg DAILY08 PO Last administered on 06/08/18at 09:59; Start 06/08/18 at 09:30 Insulin Human Isoph/Insulin Regular (HumuLIN 70/30) 15 units BIDWMEALS SQ ; Start 06/08/18 at 17:00 Lorazepam (Ativan) 2 mg 1X ONCE IV Last administered on 06/08/18at 15:45; Start 06/08/18 at 12:45; Stop 06/08/18 at 12:46; Status DC Lactobacillus Rhamnosus (Culturelle) 1 cap BID PO ; Start 06/08/18 at 21:00 Active Scripts Active Prednisone 20 Mg Tablet 2 Tab PO DAILY Start 40mg daily on 05/16/18 Levaquin (Levofloxacin) 500 Mg Tablet 1 Tab PO DAILY Meclizine Hcl 25 Mg Tablet 1 Tab PO TID PRN Macrobid 100 Mg Capsule (Nitrofurantoin Monohyd/M-Cryst) 100 Mg Capsule 1 Cap PO BID Bactrim Ds Tablet (Sulfamethoxazole/Trimethoprim) 1 Each Tablet 1 Tab PO BID Fludrocortisone Acetate 0.1 Mg Tablet 0.1 Mg PO BID Fludrocortisone Acetate 0.1 Mg Tablet 0.1 Mg PO DAILY Levemir Flextouch (Insulin Detemir) 300 Units/3 Ml Insuln.pen 30 Units SQ QHS Novolog Flexpen (Insulin Aspart) 300 Units/3 Ml Insuln.pen 10 Units SQ TIDAC Reported Methimazole 5 Mg Tablet 5 Mg PO DAILY08 Gabapentin (Gabapentin) 300 Mg Capsule 300 Mg PO HS Amitriptyline Hcl 100 Mg Tablet 1 Tab PO QHS Lovastatin 20 Mg Tablet 1 Tab PO DAILY Allergies Allergies: Allergies Coded Allergies Type Severity Reaction Last Updated Verified raspberry Allergy Severe CHOKING SENSATION IN THROAT 10/25/15 Yes amoxicillin Allergy Intermediate 10/13/17 Yes aspirin Allergy Intermediate 10/13/17 Yes codeine Allergy Intermediate 10/13/17 Yes ibuprofen Allergy Intermediate 10/13/17 Yes morphine Allergy Intermediate 10/13/17 Yes ROS Review of System The patient denies any associated fevers, chills, headache, ear pain, rhinorrhea , sore throat, stiff neck, productive cough, chest pain, shortness of breath, back or flank pain, abdominal pain, nausea, vomiting, diarrhea, constipation, dysuria, rash, numbness, weakness, tingling, incontinence, difficulty ambulating, or diaphoresis. Physical Exam Physical Exam General: Well developed, well nourished, no acute distress, well appearing HEENT: Pupils equally round and reactive to light, EOMI, no discharge, normal conjunctiva Neck: Supple, no nuchal rigidity, no JVD, trachea midline, no tenderness Cardiac: RRR, no murmurs, no gallops, no rubs Chest/Lungs: CTAB, no wheeze, no rhonchi, no crackles Abdomen: soft, non-distended, no guarding, no peritoneal signs, non-tender Back: No tenderness Extremities: no edema, pulses intact, non-tender,capillary refill <3 sec bilateral upper and lower extremities, Neuro: Alert and oriented x 4, no focal deficits, normal speech Vitals Vitals: Vital Signs Date Time Temp Pulse Resp B/P (MAP) Pulse Ox O2 Delivery O2 Flow Rate FiO2 06/08/18 16:07 91 130/82 (98) 06/08/18 15:59 97.5 18 97 Room Air 97.5 Labs Labs Laboratory Tests Test 06/07/18 15:00 06/07/18 20:49 06/07/18 21:00 06/08/18 00:36 White Blood Count 6.9 x10^3/uL (4.0-11.0) Red Blood Count 4.26 x10^6/uL (3.50-5.40) Hemoglobin 11.5 g/dL (12.0-15.5) Hematocrit 35.4 % (36.0-47.0) Mean Corpuscular Volume 83 fL (79-100) Mean Corpuscular Hemoglobin 27 pg (25-35) Mean Corpuscular Hemoglobin Concent 33 g/dL (31-37) Red Cell Distribution Width 13.5 % (11.5-14.5) Platelet Count 338 x10^3/uL (140-400) Neutrophils (%) (Auto) 51 % (31-73) Lymphocytes (%) (Auto) 38 % (24-48) Monocytes (%) (Auto) 7 % (0-9) Eosinophils (%) (Auto) 4 % (0-3) Basophils (%) (Auto) 1 % (0-3) Neutrophils # (Auto) 3.5 x10^3uL (1.8-7.7) Lymphocytes # (Auto) 2.6 x10^3/uL (1.0-4.8) Monocytes # (Auto) 0.5 x10^3/uL (0.0-1.1) Eosinophils # (Auto) 0.3 x10^3/uL (0.0-0.7) Basophils # (Auto) 0.0 x10^3/uL (0.0-0.2) Prothrombin Time 13.2 SEC (11.7-14.0) Prothromb Time International Ratio 1.0 (0.8-1.1) Sodium Level 145 mmol/L (136-145) Potassium Level 3.9 mmol/L (3.5-5.1) Chloride Level 106 mmol/L (98-107) Carbon Dioxide Level 32 mmol/L (21-32) Anion Gap 7 (6-14) Blood Urea Nitrogen 33 mg/dL (7-20) Creatinine 0.9 mg/dL (0.6-1.0) Estimated GFR (Cockcroft-Gault) 64.8 BUN/Creatinine Ratio 37 (6-20) Glucose Level 62 mg/dL (70-99) Hemoglobin A1c 14.4 % (4.8-5.6) Calcium Level 10.3 mg/dL (8.5-10.1) Magnesium Level 1.9 mg/dL (1.8-2.4) Total Bilirubin 0.2 mg/dL (0.2-1.0) Aspartate Amino Transf (AST/SGOT) 17 U/L (15-37) Alanine Aminotransferase (ALT/SGPT) 20 U/L (14-59) Alkaline Phosphatase 106 U/L (46-116) Creatine Kinase 73 U/L (26-192) Creatine Kinase MB (Mass) 2.0 ng/mL (0.0-3.6) Creatine Kinase MB Relative Index % (0-4) Troponin I Quantitative < 0.017 ng/mL (0.000-0.055) IM-Fps-H-Type Natriuretic Peptide 118 pg/mL (0-124) Total Protein 7.8 g/dL (6.4-8.2) Albumin 3.1 g/dL (3.4-5.0) Albumin/Globulin Ratio 0.7 (1.0-1.7) Thyroid Stimulating Hormone (TSH) 0.813 uIU/mL (0.358-3.74) Glucose (Fingerstick) 100 mg/dL (70-99) 293 mg/dL (70-99) Urine Collection Type Unknown Urine Color Yellow Urine Clarity Clear Urine pH 6.5 Urine Specific [place]am 1.015 Urine Protein 30 mg/dL (NEG-TRACE) Urine Glucose (UA) 500 mg/dL (NEG) Urine Ketones (Stick) Negative mg/dL (NEG) Urine Blood Negative (NEG) Urine Nitrite Negative (NEG) Urine Bilirubin Negative (NEG) Urine Urobilinogen Dipstick 0.2 mg/dL (0.2 mg/dL) Urine Leukocyte Esterase Moderate (NEG) Urine RBC Occ /HPF (0-2) Urine WBC 11-20 /HPF (0-4) Urine Squamous Epithelial Cells Few /LPF Urine Bacteria Few /HPF (0-FEW) Urine Mucus Slight /LPF Urine Opiates Screen Neg (NEG) Urine Methadone Screen Neg (NEG) Urine Barbiturates Neg (NEG) Urine Phencyclidine Screen Neg (NEG) Urine Amphetamine/Methamphetamine Neg (NEG) Urine Benzodiazepines Screen Neg (NEG) Urine Cocaine Screen Neg (NEG) Urine Cannabinoids Screen Neg (NEG) Urine Ethyl Alcohol Neg (NEG) Test 06/08/18 06:00 06/08/18 06:40 06/08/18 11:32 06/08/18 17:21 Nasal Screen MRSA (PCR) Negative (Negative) White Blood Count 6.3 x10^3/uL (4.0-11.0) Red Blood Count 3.75 x10^6/uL (3.50-5.40) Hemoglobin 10.3 g/dL (12.0-15.5) Hematocrit 31.2 % (36.0-47.0) Mean Corpuscular Volume 83 fL (79-100) Mean Corpuscular Hemoglobin 27 pg (25-35) Mean Corpuscular Hemoglobin Concent 33 g/dL (31-37) Red Cell Distribution Width 13.3 % (11.5-14.5) Platelet Count 263 x10^3/uL (140-400) Neutrophils (%) (Auto) 52 % (31-73) Lymphocytes (%) (Auto) 37 % (24-48) Monocytes (%) (Auto) 7 % (0-9) Eosinophils (%) (Auto) 3 % (0-3) Basophils (%) (Auto) 1 % (0-3) Neutrophils # (Auto) 3.2 x10^3uL (1.8-7.7) Lymphocytes # (Auto) 2.3 x10^3/uL (1.0-4.8) Monocytes # (Auto) 0.5 x10^3/uL (0.0-1.1) Eosinophils # (Auto) 0.2 x10^3/uL (0.0-0.7) Basophils # (Auto) 0.0 x10^3/uL (0.0-0.2) Sodium Level 143 mmol/L (136-145) Potassium Level 4.2 mmol/L (3.5-5.1) Chloride Level 107 mmol/L (98-107) Carbon Dioxide Level 28 mmol/L (21-32) Anion Gap 8 (6-14) Blood Urea Nitrogen 24 mg/dL (7-20) Creatinine 0.7 mg/dL (0.6-1.0) Estimated GFR (Cockcroft-Gault) 86.6 Glucose Level 183 mg/dL (70-99) Calcium Level 8.9 mg/dL (8.5-10.1) Triglycerides Level 107 mg/dL (0-150) Cholesterol Level 158 mg/dL (0-200) LDL Cholesterol, Calculated 89 mg/dL (0-100) VLDL Cholesterol, Calculated 21 mg/dL (0-40) Non-HDL Cholesterol Calculated 110 mg/dL (0-129) HDL Cholesterol 48 mg/dL (40-60) Cholesterol/HDL Ratio 3.3 Cortisol AM Sample 3.6 ug/dL (4.3-22.4) Glucose (Fingerstick) 284 mg/dL (70-99) 252 mg/dL (70-99) Laboratory Tests Test 06/07/18 20:49 06/07/18 21:00 06/08/18 00:36 06/08/18 06:00 Glucose (Fingerstick) 100 mg/dL (70-99) 293 mg/dL (70-99) Urine Collection Type Unknown Urine Color Yellow Urine Clarity Clear Urine pH 6.5 Urine Specific [place]am 1.015 Urine Protein 30 mg/dL (NEG-TRACE) Urine Glucose (UA) 500 mg/dL (NEG) Urine Ketones (Stick) Negative mg/dL (NEG) Urine Blood Negative (NEG) Urine Nitrite Negative (NEG) Urine Bilirubin Negative (NEG) Urine Urobilinogen Dipstick 0.2 mg/dL (0.2 mg/dL) Urine Leukocyte Esterase Moderate (NEG) Urine RBC Occ /HPF (0-2) Urine WBC 11-20 /HPF (0-4) Urine Squamous Epithelial Cells Few /LPF Urine Bacteria Few /HPF (0-FEW) Urine Mucus Slight /LPF Urine Opiates Screen Neg (NEG) Urine Methadone Screen Neg (NEG) Urine Barbiturates Neg (NEG) Urine Phencyclidine Screen Neg (NEG) Urine Amphetamine/Methamphetamine Neg (NEG) Urine Benzodiazepines Screen Neg (NEG) Urine Cocaine Screen Neg (NEG) Urine Cannabinoids Screen Neg (NEG) Urine Ethyl Alcohol Neg (NEG) Nasal Screen MRSA (PCR) Negative (Negative) Test 06/08/18 06:40 06/08/18 11:32 06/08/18 17:21 White Blood Count 6.3 x10^3/uL (4.0-11.0) Red Blood Count 3.75 x10^6/uL (3.50-5.40) Hemoglobin 10.3 g/dL (12.0-15.5) Hematocrit 31.2 % (36.0-47.0) Mean Corpuscular Volume 83 fL (79-100) Mean Corpuscular Hemoglobin 27 pg (25-35) Mean Corpuscular Hemoglobin Concent 33 g/dL (31-37) Red Cell Distribution Width 13.3 % (11.5-14.5) Platelet Count 263 x10^3/uL (140-400) Neutrophils (%) (Auto) 52 % (31-73) Lymphocytes (%) (Auto) 37 % (24-48) Monocytes (%) (Auto) 7 % (0-9) Eosinophils (%) (Auto) 3 % (0-3) Basophils (%) (Auto) 1 % (0-3) Neutrophils # (Auto) 3.2 x10^3uL (1.8-7.7) Lymphocytes # (Auto) 2.3 x10^3/uL (1.0-4.8) Monocytes # (Auto) 0.5 x10^3/uL (0.0-1.1) Eosinophils # (Auto) 0.2 x10^3/uL (0.0-0.7) Basophils # (Auto) 0.0 x10^3/uL (0.0-0.2) Sodium Level 143 mmol/L (136-145) Potassium Level 4.2 mmol/L (3.5-5.1) Chloride Level 107 mmol/L (98-107) Carbon Dioxide Level 28 mmol/L (21-32) Anion Gap 8 (6-14) Blood Urea Nitrogen 24 mg/dL (7-20) Creatinine 0.7 mg/dL (0.6-1.0) Estimated GFR (Cockcroft-Gault) 86.6 Glucose Level 183 mg/dL (70-99) Calcium Level 8.9 mg/dL (8.5-10.1) Triglycerides Level 107 mg/dL (0-150) Cholesterol Level 158 mg/dL (0-200) LDL Cholesterol, Calculated 89 mg/dL (0-100) VLDL Cholesterol, Calculated 21 mg/dL (0-40) Non-HDL Cholesterol Calculated 110 mg/dL (0-129) HDL Cholesterol 48 mg/dL (40-60) Cholesterol/HDL Ratio 3.3 Cortisol AM Sample 3.6 ug/dL (4.3-22.4) Glucose (Fingerstick) 284 mg/dL (70-99) 252 mg/dL (70-99) HARDY SHEPARD MD Jun 08, 2018 18:02
[2018-06-08] MEDS: INSULIN NPH/REG INSULIN 70/30 300 UNITS/3 ML INSULN.PEN. SQ SCH (18:04)
[2018-06-08] MEDS: GABAPENTIN 300 MG CAPSULE. PO SCH (20:43)
[2018-06-08] MEDS: LACTOBACILLUS RHAMNOSUS GG 1 CAPSULE. PO SCH (20:43)
[2018-06-08] MEDS: ATORVASTATIN CALCIUM 10 MG TABLET. PO SCH (20:44)
[2018-06-08] MEDS: AMITRIPTYLINE HCL 50 MG TABLET PO SCH (20:44)
[2018-06-08] MEDS ORDERED: GABAPENTIN 300 MG CAPSULE. PO SCH (21:00)
[2018-06-09] VITALS (9 sets, daily range): BP systolic 65–140; BP diastolic 40–89
[2018-06-09] MEDS: LACTOBACILLUS RHAMNOSUS GG 1 CAPSULE. PO SCH ×2 (08:56→21:21)
[2018-06-09] MEDS: methIMAzole 10 MG TABLET PO SCH (08:58)
[2018-06-09] MEDS ORDERED: FLUDROCORTISONE 0.1 MG TABLET PO SCH (09:00)
[2018-06-09] MEDS: INSULIN LISPRO 300 UNITS/3 ML INSULN.PEN. SQ SCH ×3 (09:00→18:20)
[2018-06-09] MEDS: INSULIN NPH/REG INSULIN 70/30 300 UNITS/3 ML INSULN.PEN. SQ SCH ×2 (09:04→18:22)
--- NOTE | 2018-06-09 10:06 | RAD ---
EXAM: Brain MRI without contrast. HISTORY: Dizziness. Ataxia. Frequent falls. TECHNIQUE: Multiplanar, multisequence magnetic resonance imaging of the brain was performed without contrast. COMPARISON: Head CT dated 06/07/2018 and brain MRI dated 11/08/2017. FINDINGS: There is no restricted diffusion to suggest acute or subacute infarction. There is no susceptibility effect to suggest hemorrhage. There is no mass effect or midline shift. There is no hydrocephalus. There is nonspecific T2/FLAIR hyperintensity within the cerebral white matter, not significant changed compared to the prior MRI. The orbits are unremarkable. There is minimal paranasal sinus mucosal thickening. The mastoid air cells are unremarkable. There are normal flow voids within the cerebral vessels. IMPRESSION: 1. No acute intracranial finding. 2. Stable nonspecific signal change within the cerebral white matter, most commonly due to chronic small vessel disease. Electronically signed by: Mary Anna MD (06/09/2018 10:03 AM) [id number]
--- NOTE | 2018-06-09 10:44 | PDOC ---
PROGRESS NOTES Chief Complaint Chief Complaint LEFT lower lobe pneumonitis marked orthostatic hypotension; hx of adrenal insuff? Dm2, mod control prior CVA hypoglycemia ECHO 10/2017 The left ventricular systolic function is normal and the ejection fraction is within normal range. EF 55% There is normal LV segmental wall motion. Vertigo Claustrophobia HX falls FAll risk History of Present Illness History of Present Illness cortisol is low 3.6 Still gets dizzy on ambulation Has been off of fludrocortisone for 1-2 months now-was taken off by Samantha because her blood pressure was 177 systolic at home He was taking fludrocortisone 0.1 mg once a day for maybe 6-7 months Blood pressure here 144 but still vertiginous especially on sitting up Discussed with neurology - MRI neg She is woozy from the Ativan prior to MRI She follow-ups at [facility] endocrine for her diabetes on Novolin 70/30 anywhere between 25-45 units in the morning and 15 units at night Also follows with endocrinology [facility] for hyperthyroidism on Tapazole - TSH is at goal here Plan: Add PTOT therapy today PT evaluate later when more awake Discharge tomorrow hard to decide regarding need for fludrocortisone Cortisol is low 3.6 but blood pressure can be high sometimes on it She follows with cloth stretcher [facility] Vitals Vitals Vital Signs Date Time Temp Pulse Resp B/P (MAP) Pulse Ox O2 Delivery O2 Flow Rate FiO2 06/09/18 08:00 Room Air 06/09/18 07:32 98.3 91 18 116/71 (86) 99 98.3 Physical Exam General: Alert, Oriented X3, Cooperative, No acute distress Heart: Regular rate (SR/ST) Lungs: Clear Abdomen: Soft, No tenderness Extremities: No cyanosis, No edema Skin: No breakdown, Other (multipel LE scabs) Labs LABS Laboratory Tests Test 06/08/18 11:32 06/08/18 17:21 06/08/18 23:06 06/09/18 07:20 Glucose (Fingerstick) 284 mg/dL (70-99) 252 mg/dL (70-99) 92 mg/dL (70-99) 245 mg/dL (70-99) Review of Systems Review of Systems woozy from Ativan hence minimal ROS today Assessment and Plan Assessmemt and Plan Problems Medical Problems: (1) Fever Status: Acute (2) Hypotension Status: Acute (3) Left lower lobe pneumonia Status: Acute (4) Vertigo Status: Acute Comment Review of Relevant I have reviewed the following items zurdo (where applicable) has been applied. Labs Laboratory Tests Test 06/07/18 15:00 06/07/18 20:49 06/07/18 21:00 06/08/18 00:36 White Blood Count 6.9 x10^3/uL (4.0-11.0) Red Blood Count 4.26 x10^6/uL (3.50-5.40) Hemoglobin 11.5 g/dL (12.0-15.5) Hematocrit 35.4 % (36.0-47.0) Mean Corpuscular Volume 83 fL (79-100) Mean Corpuscular Hemoglobin 27 pg (25-35) Mean Corpuscular Hemoglobin Concent 33 g/dL (31-37) Red Cell Distribution Width 13.5 % (11.5-14.5) Platelet Count 338 x10^3/uL (140-400) Neutrophils (%) (Auto) 51 % (31-73) Lymphocytes (%) (Auto) 38 % (24-48) Monocytes (%) (Auto) 7 % (0-9) Eosinophils (%) (Auto) 4 % (0-3) Basophils (%) (Auto) 1 % (0-3) Neutrophils # (Auto) 3.5 x10^3uL (1.8-7.7) Lymphocytes # (Auto) 2.6 x10^3/uL (1.0-4.8) Monocytes # (Auto) 0.5 x10^3/uL (0.0-1.1) Eosinophils # (Auto) 0.3 x10^3/uL (0.0-0.7) Basophils # (Auto) 0.0 x10^3/uL (0.0-0.2) Prothrombin Time 13.2 SEC (11.7-14.0) Prothromb Time International Ratio 1.0 (0.8-1.1) Sodium Level 145 mmol/L (136-145) Potassium Level 3.9 mmol/L (3.5-5.1) Chloride Level 106 mmol/L (98-107) Carbon Dioxide Level 32 mmol/L (21-32) Anion Gap 7 (6-14) Blood Urea Nitrogen 33 mg/dL (7-20) Creatinine 0.9 mg/dL (0.6-1.0) Estimated GFR (Cockcroft-Gault) 64.8 BUN/Creatinine Ratio 37 (6-20) Glucose Level 62 mg/dL (70-99) Hemoglobin A1c 14.4 % (4.8-5.6) Calcium Level 10.3 mg/dL (8.5-10.1) Magnesium Level 1.9 mg/dL (1.8-2.4) Total Bilirubin 0.2 mg/dL (0.2-1.0) Aspartate Amino Transf (AST/SGOT) 17 U/L (15-37) Alanine Aminotransferase (ALT/SGPT) 20 U/L (14-59) Alkaline Phosphatase 106 U/L (46-116) Creatine Kinase 73 U/L (26-192) Creatine Kinase MB (Mass) 2.0 ng/mL (0.0-3.6) Creatine Kinase MB Relative Index % (0-4) Troponin I Quantitative < 0.017 ng/mL (0.000-0.055) TP-Gba-P-Type Natriuretic Peptide 118 pg/mL (0-124) Total Protein 7.8 g/dL (6.4-8.2) Albumin 3.1 g/dL (3.4-5.0) Albumin/Globulin Ratio 0.7 (1.0-1.7) Thyroid Stimulating Hormone (TSH) 0.813 uIU/mL (0.358-3.74) Glucose (Fingerstick) 100 mg/dL (70-99) 293 mg/dL (70-99) Urine Collection Type Unknown Urine Color Yellow Urine Clarity Clear Urine pH 6.5 Urine Specific [place] 1.015 Urine Protein 30 mg/dL (NEG-TRACE) Urine Glucose (UA) 500 mg/dL (NEG) Urine Ketones (Stick) Negative mg/dL (NEG) Urine Blood Negative (NEG) Urine Nitrite Negative (NEG) Urine Bilirubin Negative (NEG) Urine Urobilinogen Dipstick 0.2 mg/dL (0.2 mg/dL) Urine Leukocyte Esterase Moderate (NEG) Urine RBC Occ /HPF (0-2) Urine WBC 11-20 /HPF (0-4) Urine Squamous Epithelial Cells Few /LPF Urine Bacteria Few /HPF (0-FEW) Urine Mucus Slight /LPF Urine Opiates Screen Neg (NEG) Urine Methadone Screen Neg (NEG) Urine Barbiturates Neg (NEG) Urine Phencyclidine Screen Neg (NEG) Urine Amphetamine/Methamphetamine Neg (NEG) Urine Benzodiazepines Screen Neg (NEG) Urine Cocaine Screen Neg (NEG) Urine Cannabinoids Screen Neg (NEG) Urine Ethyl Alcohol Neg (NEG) Test 06/08/18 06:00 06/08/18 06:40 06/08/18 11:32 06/08/18 17:21 Nasal Screen MRSA (PCR) Negative (Negative) White Blood Count 6.3 x10^3/uL (4.0-11.0) Red Blood Count 3.75 x10^6/uL (3.50-5.40) Hemoglobin 10.3 g/dL (12.0-15.5) Hematocrit 31.2 % (36.0-47.0) Mean Corpuscular Volume 83 fL (79-100) Mean Corpuscular Hemoglobin 27 pg (25-35) Mean Corpuscular Hemoglobin Concent 33 g/dL (31-37) Red Cell Distribution Width 13.3 % (11.5-14.5) Platelet Count 263 x10^3/uL (140-400) Neutrophils (%) (Auto) 52 % (31-73) Lymphocytes (%) (Auto) 37 % (24-48) Monocytes (%) (Auto) 7 % (0-9) Eosinophils (%) (Auto) 3 % (0-3) Basophils (%) (Auto) 1 % (0-3) Neutrophils # (Auto) 3.2 x10^3uL (1.8-7.7) Lymphocytes # (Auto) 2.3 x10^3/uL (1.0-4.8) Monocytes # (Auto) 0.5 x10^3/uL (0.0-1.1) Eosinophils # (Auto) 0.2 x10^3/uL (0.0-0.7) Basophils # (Auto) 0.0 x10^3/uL (0.0-0.2) Sodium Level 143 mmol/L (136-145) Potassium Level 4.2 mmol/L (3.5-5.1) Chloride Level 107 mmol/L (98-107) Carbon Dioxide Level 28 mmol/L (21-32) Anion Gap 8 (6-14) Blood Urea Nitrogen 24 mg/dL (7-20) Creatinine 0.7 mg/dL (0.6-1.0) Estimated GFR (Cockcroft-Gault) 86.6 Glucose Level 183 mg/dL (70-99) Calcium Level 8.9 mg/dL (8.5-10.1) Triglycerides Level 107 mg/dL (0-150) Cholesterol Level 158 mg/dL (0-200) LDL Cholesterol, Calculated 89 mg/dL (0-100) VLDL Cholesterol, Calculated 21 mg/dL (0-40) Non-HDL Cholesterol Calculated 110 mg/dL (0-129) HDL Cholesterol 48 mg/dL (40-60) Cholesterol/HDL Ratio 3.3 Cortisol AM Sample 3.6 ug/dL (4.3-22.4) Glucose (Fingerstick) 284 mg/dL (70-99) 252 mg/dL (70-99) Test 06/08/18 23:06 06/09/18 07:20 Glucose (Fingerstick) 92 mg/dL (70-99) 245 mg/dL (70-99) Laboratory Tests Test 06/08/18 11:32 06/08/18 17:21 06/08/18 23:06 06/09/18 07:20 Glucose (Fingerstick) 284 mg/dL (70-99) 252 mg/dL (70-99) 92 mg/dL (70-99) 245 mg/dL (70-99) Medications Current Medications Meclizine HCl (Antivert) 25 mg 1X ONCE PO Last administered on 06/07/18at 15:36 ; Start 06/07/18 at 15:00; Stop 06/07/18 at 15:03; Status DC Sodium Chloride 1,000 ml @ 1,000 mls/hr 1X ONCE IV Last administered on at 15:36; Start 06/07/18 at 15:00; Stop 06/07/18 at 15:59; Status DC Ondansetron HCl (Zofran) 4 mg 1X ONCE IV Last administered on 06/07/18at 15:37 ; Start 06/07/18 at 15:00; Stop 06/07/18 at 15:03; Status DC Multi-Ingredient Mouthwash/Gargle (Gi Cocktail) 20 ml 1X ONCE SWSW Last administered on 06/07/18at 15:46; Start 06/07/18 at 15:45; Stop 06/07/18 at 15:46 ; Status DC Ceftriaxone Sodium (Rocephin) 1 gm 1X ONCE IVP Last administered on 06/07/18at 16:17; Start 06/07/18 at 16:00; Stop 06/07/18 at 16:01; Status DC Azithromycin 250 ml @ 250 mls/hr 1X ONCE IV Last administered on 06/07/18at 16 :22; Start 06/07/18 at 16:00; Stop 06/07/18 at 16:59; Status DC Ondansetron HCl (Zofran) 4 mg PRN Q8HRS PRN IV NAUSEA/VOMITING; Start 06/07/18 at 17:15; Stop 06/08/18 at 09:05; Status DC Acetaminophen (Tylenol) 650 mg PRN Q4HRS PRN PO FEVER Last administered on 06/08at 13:41; Start 06/07/18 at 17:15; Stop 06/08/18 at 17:14; Status DC Sodium Chloride 1,000 ml @ 125 mls/hr 1X ONCE IV Last administered on at 22:16; Start 06/07/18 at 17:15; Stop 06/08/18 at 01:14; Status DC Meclizine HCl (Antivert) 25 mg TID PRN PO DIZZINESS; Start 06/07/18 at 17:15; Stop 06/07/18 at 17:21; Status DC Meclizine HCl (Antivert) 25 mg PRN TID PRN PO DIZZINESS; Start 06/07/18 at 17: 30 Fludrocortisone Acetate (Florinef) 0.1 mg BID PO Last administered on at 08:58; Start 06/07/18 at 21:00; Stop 06/08/18 at 09:13; Status DC Atorvastatin Calcium (Lipitor) 5 mg QHS PO Last administered on 06/08/18at 20:44 ; Start 06/07/18 at 21:00 Non-Formulary Medication (Meclizine Hcl ) 1 tab TID PRN PO DIZZINESS; Start 04/13 at 17:30; Status UNV Insulin Human Lispro (HumaLOG) 0-5 UNITS TIDWMEALS SQ Last administered on 06/09 09:00; Start 06/08/18 at 08:00 Dextrose (Dextrose 50%-Water Syringe) 12.5 gm PRN Q15MIN PRN IV SEE COMMENTS; Start 06/07/18 at 17:30 Gabapentin (Neurontin) 300 mg HS PO Last administered on 06/08/18at 20:43; Start 06/07/18 at 23:00 Ondansetron HCl (Zofran) 4 mg PRN Q6HRS PRN IV NAUSEA/VOMITING Last administered on 06/08/18 13:41; Start 06/08/18 at 09:15 Levofloxacin (Levaquin) 500 mg DAILY06 PO Last administered on 06/09/18 06:00 ; Start 06/09/18 at 06:00 Levofloxacin (Levaquin) 500 mg 1X ONCE PO Last administered on 06/08/18 09:59 ; Start 06/08/18 at 09:15; Stop 06/08/18 at 09:16; Status DC Fludrocortisone Acetate (Florinef) 0.1 mg DAILY PO ; Start 06/09/18 at 09:00; Stop 06/09/18 at 09:00; Status DC Gabapentin (Neurontin) 300 mg HS PO ; Start 06/08/18 at 21:00; Stop 06/08/18 at 21:00; Status DC Amitriptyline HCl (Elavil) 100 mg QHS PO Last administered on 06/08/18 20:44; Start 06/08/18 at 21:00 Methimazole (Tapazole) 5 mg DAILY08 PO Last administered on 06/09/18 08:58; Start 06/08/18 at 09:30 Insulin Human Isoph/Insulin Regular (HumuLIN 70/30) 15 units BIDWMEALS SQ Last administered on 06/09/18 09:04; Start 06/08/18 at 17:00 Lorazepam (Ativan) 2 mg 1X ONCE IV Last administered on 06/08/18at 15:45; Start 06/08/18 at 12:45; Stop 06/08/18 at 12:46; Status DC Lactobacillus Rhamnosus (Culturelle) 1 cap BID PO Last administered on 08:56; Start 06/08/18 at 21:00 Lorazepam (Ativan) 2 mg 1X ONCE IV Last administered on 06/09/18at 09:15; Start 06/09/18 at 08:45; Stop 06/09/18 at 08:46; Status DC Active Scripts Active Prednisone 20 Mg Tablet 2 Tab PO DAILY Start 40mg daily on 05/16/18 Levaquin (Levofloxacin) 500 Mg Tablet 1 Tab PO DAILY Meclizine Hcl 25 Mg Tablet 1 Tab PO TID PRN Macrobid 100 Mg Capsule (Nitrofurantoin Monohyd/M-Cryst) 100 Mg Capsule 1 Cap PO BID Bactrim Ds Tablet (Sulfamethoxazole/Trimethoprim) 1 Each Tablet 1 Tab PO BID Fludrocortisone Acetate 0.1 Mg Tablet 0.1 Mg PO BID Fludrocortisone Acetate 0.1 Mg Tablet 0.1 Mg PO DAILY Levemir Flextouch (Insulin Detemir) 300 Units/3 Ml Insuln.pen 30 Units SQ QHS Novolog Flexpen (Insulin Aspart) 300 Units/3 Ml Insuln.pen 10 Units SQ TIDAC Reported Methimazole 5 Mg Tablet 5 Mg PO DAILY08 Gabapentin (Gabapentin) 300 Mg Capsule 300 Mg PO HS Amitriptyline Hcl 100 Mg Tablet 1 Tab PO QHS Lovastatin 20 Mg Tablet 1 Tab PO DAILY Vitals/I & O Vital Sign - Last 24 Hours 06/08/18 06/08/18 06/08/18 06/08/18 15:59 16:07 16:07 19:54 Temp 97.5 98.3 97.5 98.3 Pulse 91 92 91 96 Resp 18 18 B/P (MAP) 157/89 (111) 103/59 (74) 130/82 (98) 164/101 (122) Pulse Ox 97 96 O2 Delivery Room Air Room Air 06/08/18 06/08/18 06/08/18 06/08/18 19:54 19:55 20:04 23:18 Temp 98.4 98.4 Pulse 98 96 91 Resp 16 B/P (MAP) 141/89 (106) 95/61 (72) 108/69 (82) Pulse Ox 94 O2 Delivery Room Air Room Air 06/09/18 06/09/18 06/09/18 03:35 07:32 08:00 Temp 98.3 98.3 98.3 98.3 Pulse 94 91 Resp 16 18 B/P (MAP) 110/64 (79) 116/71 (86) Pulse Ox 95 99 O2 Delivery Room Air Room Air Room Air Intake and Output 06/08/18 06/08/18 06/09/18 15:00 23:00 07:00 Intake Total 400 ml 500 ml 400 ml Balance 400 ml 500 ml 400 ml REGINA DAVID MD Jun 09, 2018 10:44
[2018-06-09] MEDS ORDERED: MECLIZINE HCL 12.5 MG TABLET. PO PRN (10:45)
--- NOTE | 2018-06-09 14:54 | PDOC ---
CARDIO Progress Notes Date and Time Date of Service 06/09/2018 Time of Evaluation 1400 Subjective Subjective: No Chest Pain, No shortness of breath, No Palpitations, Other ( groggy as she was given ativan for MRI) Vitals Vitals Vital Signs Date Time Temp Pulse Resp B/P (MAP) Pulse Ox O2 Delivery O2 Flow Rate FiO2 06/09/18 14:00 65/40 (48) 06/09/18 11:35 98.1 90 18 99 Room Air 98.1 Weight Weight [ ] Input and Output Intake and Output Intake and Output 06/09/18 07:00 Intake Total 1300 ml Balance 1300 ml Intake Oral 1300 ml # Voids 3 Laboratory Labs Laboratory Tests Test 06/08/18 17:21 06/08/18 23:06 06/09/18 07:20 06/09/18 10:54 Glucose (Fingerstick) 252 mg/dL (70-99) 92 mg/dL (70-99) 245 mg/dL (70-99) 214 mg/dL (70-99) Physical Exam HEENT: Neck Supple W Full Motion Chest: Symmetric LUNGS: Clear to Auscultation Heart: S1S2, RRR (SR no rhythm ectopies) Abdomen: Soft N/T Extremities: No Calf Tenderness Neurology: alert, oriented, follow commands Assessment Assessment 1. Presyncope: orthostasis remains. Dizzy primarily when standing up. post ativan currently for MRI 2. Hyperthyroidism/Multiple thyroid nodules: on methimazole. TSH on goal 3. DPN/autonomic neuropathy 4. Hx of orthostatic hypotension; was off florinef since 03/2018 5. Uncontrolled DM: A1C 14.4 6. Prerenal azotemia: due to dehydration 7. UTI: per PCP Recommendations 1. Cortisol low, continue with florinef. Awaiting input from neurology. Continue with Abd binder. Encouraged slow positional changes. 2. Continue to push po hydration. CHIDI HERRERA GUNNER MATE Jun 09, 2018 14:54
[2018-06-09] MEDS: FLUDROCORTISONE 0.1 MG TABLET PO SCH (15:16)
--- NOTE | 2018-06-09 16:28 | PDOC ---
PROGRESS NOTES Assessment Problems Medical Problems: (1) Fever Status: Acute (2) Hypotension Status: Acute (3) Left lower lobe pneumonia Status: Acute (4) Vertigo Status: Acute Near syncope. Diabetic neuropathy and autonomic dysfunction, orthostatic No sign of new stroke HTN. DM, Hgb A1C 14.4 HLD. UTI. Plan Brain MRI w/o contrast. Control hyperglycemia. BP management per cardiology, she is on florinef, could add midodrine. Continue Lipitor HS. ASA 81 mg daily Subjective still lightheaded, denies vertigo Objective Vital Signs Date Time Temp Pulse Resp B/P (MAP) Pulse Ox O2 Delivery O2 Flow Rate FiO2 06/09/18 15:34 97.8 93 18 135/80 (98) 100 Room Air 97.8 Intake and Output 06/09/18 07:00 Intake Total 1300 ml Balance 1300 ml Intake Oral 1300 ml # Voids 3 PHYSICAL EXAM Alert. Oriented to time, place and person. PERRL. EOMI, no nystagmus. CN: no focal findings. Muscle tone: normal. Muscle strength: 4/5 DTR: 1+ Plantar reflex: flexor Gait: Ambulates fairly well with walker Sensory exam: stocking loss No cerebellar signs elicited. Review of Relevant I have reviewed the following items zurdo (where applicable) has been applied. Labs Laboratory Tests Test 06/07/18 20:49 06/07/18 21:00 06/08/18 00:36 06/08/18 06:00 Glucose (Fingerstick) 100 mg/dL (70-99) 293 mg/dL (70-99) Urine Collection Type Unknown Urine Color Yellow Urine Clarity Clear Urine pH 6.5 Urine Specific Datto 1.015 Urine Protein 30 mg/dL (NEG-TRACE) Urine Glucose (UA) 500 mg/dL (NEG) Urine Ketones (Stick) Negative mg/dL (NEG) Urine Blood Negative (NEG) Urine Nitrite Negative (NEG) Urine Bilirubin Negative (NEG) Urine Urobilinogen Dipstick 0.2 mg/dL (0.2 mg/dL) Urine Leukocyte Esterase Moderate (NEG) Urine RBC Occ /HPF (0-2) Urine WBC 11-20 /HPF (0-4) Urine Squamous Epithelial Cells Few /LPF Urine Bacteria Few /HPF (0-FEW) Urine Mucus Slight /LPF Urine Opiates Screen Neg (NEG) Urine Methadone Screen Neg (NEG) Urine Barbiturates Neg (NEG) Urine Phencyclidine Screen Neg (NEG) Urine Amphetamine/Methamphetamine Neg (NEG) Urine Benzodiazepines Screen Neg (NEG) Urine Cocaine Screen Neg (NEG) Urine Cannabinoids Screen Neg (NEG) Urine Ethyl Alcohol Neg (NEG) Nasal Screen MRSA (PCR) Negative (Negative) Test 06/08/18 06:40 06/08/18 11:32 06/08/18 17:21 06/08/18 23:06 White Blood Count 6.3 x10^3/uL (4.0-11.0) Red Blood Count 3.75 x10^6/uL (3.50-5.40) Hemoglobin 10.3 g/dL (12.0-15.5) Hematocrit 31.2 % (36.0-47.0) Mean Corpuscular Volume 83 fL (79-100) Mean Corpuscular Hemoglobin 27 pg (25-35) Mean Corpuscular Hemoglobin Concent 33 g/dL (31-37) Red Cell Distribution Width 13.3 % (11.5-14.5) Platelet Count 263 x10^3/uL (140-400) Neutrophils (%) (Auto) 52 % (31-73) Lymphocytes (%) (Auto) 37 % (24-48) Monocytes (%) (Auto) 7 % (0-9) Eosinophils (%) (Auto) 3 % (0-3) Basophils (%) (Auto) 1 % (0-3) Neutrophils # (Auto) 3.2 x10^3uL (1.8-7.7) Lymphocytes # (Auto) 2.3 x10^3/uL (1.0-4.8) Monocytes # (Auto) 0.5 x10^3/uL (0.0-1.1) Eosinophils # (Auto) 0.2 x10^3/uL (0.0-0.7) Basophils # (Auto) 0.0 x10^3/uL (0.0-0.2) Sodium Level 143 mmol/L (136-145) Potassium Level 4.2 mmol/L (3.5-5.1) Chloride Level 107 mmol/L (98-107) Carbon Dioxide Level 28 mmol/L (21-32) Anion Gap 8 (6-14) Blood Urea Nitrogen 24 mg/dL (7-20) Creatinine 0.7 mg/dL (0.6-1.0) Estimated GFR (Cockcroft-Gault) 86.6 Glucose Level 183 mg/dL (70-99) Calcium Level 8.9 mg/dL (8.5-10.1) Triglycerides Level 107 mg/dL (0-150) Cholesterol Level 158 mg/dL (0-200) LDL Cholesterol, Calculated 89 mg/dL (0-100) VLDL Cholesterol, Calculated 21 mg/dL (0-40) Non-HDL Cholesterol Calculated 110 mg/dL (0-129) HDL Cholesterol 48 mg/dL (40-60) Cholesterol/HDL Ratio 3.3 Cortisol AM Sample 3.6 ug/dL (4.3-22.4) Glucose (Fingerstick) 284 mg/dL (70-99) 252 mg/dL (70-99) 92 mg/dL (70-99) Test 06/09/18 07:20 06/09/18 10:54 Glucose (Fingerstick) 245 mg/dL (70-99) 214 mg/dL (70-99) Laboratory Tests Test 06/08/18 17:21 06/08/18 23:06 06/09/18 07:20 06/09/18 10:54 Glucose (Fingerstick) 252 mg/dL (70-99) 92 mg/dL (70-99) 245 mg/dL (70-99) 214 mg/dL (70-99) Medications Current Medications Meclizine HCl (Antivert) 25 mg 1X ONCE PO Last administered on 06/07/18at 15:36 ; Start 06/07/18 at 15:00; Stop 06/07/18 at 15:03; Status DC Sodium Chloride 1,000 ml @ 1,000 mls/hr 1X ONCE IV Last administered on at 15:36; Start 06/07/18 at 15:00; Stop 06/07/18 at 15:59; Status DC Ondansetron HCl (Zofran) 4 mg 1X ONCE IV Last administered on 06/07/18at 15:37 ; Start 06/07/18 at 15:00; Stop 06/07/18 at 15:03; Status DC Multi-Ingredient Mouthwash/Gargle (Gi Cocktail) 20 ml 1X ONCE SWSW Last administered on 06/07/18at 15:46; Start 06/07/18 at 15:45; Stop 06/07/18 at 15:46 ; Status DC Ceftriaxone Sodium (Rocephin) 1 gm 1X ONCE IVP Last administered on 06/07/18at 16:17; Start 06/07/18 at 16:00; Stop 06/07/18 at 16:01; Status DC Azithromycin 250 ml @ 250 mls/hr 1X ONCE IV Last administered on 06/07/18at 16 :22; Start 06/07/18 at 16:00; Stop 06/07/18 at 16:59; Status DC Ondansetron HCl (Zofran) 4 mg PRN Q8HRS PRN IV NAUSEA/VOMITING; Start 06/07/18 at 17:15; Stop 06/08/18 at 09:05; Status DC Acetaminophen (Tylenol) 650 mg PRN Q4HRS PRN PO FEVER Last administered on 06/08at 13:41; Start 06/07/18 at 17:15; Stop 06/08/18 at 17:14; Status DC Sodium Chloride 1,000 ml @ 125 mls/hr 1X ONCE IV Last administered on at 22:16; Start 06/07/18 at 17:15; Stop 06/08/18 at 01:14; Status DC Meclizine HCl (Antivert) 25 mg TID PRN PO DIZZINESS; Start 06/07/18 at 17:15; Stop 06/07/18 at 17:21; Status DC Meclizine HCl (Antivert) 25 mg PRN TID PRN PO DIZZINESS; Start 06/07/18 at 17: 30; Stop 06/09/18 at 10:42; Status DC Fludrocortisone Acetate (Florinef) 0.1 mg BID PO Last administered on at 08:58; Start 06/07/18 at 21:00; Stop 06/08/18 at 09:13; Status DC Atorvastatin Calcium (Lipitor) 5 mg QHS PO Last administered on 06/08/18at 20:44 ; Start 06/07/18 at 21:00 Non-Formulary Medication (Meclizine Hcl ) 1 tab TID PRN PO DIZZINESS; Start 04/13 at 17:30; Status UNV Insulin Human Lispro (HumaLOG) 0-5 UNITS TIDWMEALS SQ Last administered on 06/09 12:57; Start 06/08/18 at 08:00 Dextrose (Dextrose 50%-Water Syringe) 12.5 gm PRN Q15MIN PRN IV SEE COMMENTS; Start 06/07/18 at 17:30 Gabapentin (Neurontin) 300 mg HS PO Last administered on 06/08/18 20:43; Start 06/07/18 at 23:00; Stop 06/09/18 at 10:42; Status DC Ondansetron HCl (Zofran) 4 mg PRN Q6HRS PRN IV NAUSEA/VOMITING Last administered on 06/08/18 13:41; Start 06/08/18 at 09:15 Levofloxacin (Levaquin) 500 mg DAILY06 PO Last administered on 06/09/18 06:00 ; Start 06/09/18 at 06:00 Levofloxacin (Levaquin) 500 mg 1X ONCE PO Last administered on 06/08/18 09:59 ; Start 06/08/18 at 09:15; Stop 06/08/18 at 09:16; Status DC Fludrocortisone Acetate (Florinef) 0.1 mg DAILY PO ; Start 06/09/18 at 09:00; Stop 06/09/18 at 09:00; Status DC Gabapentin (Neurontin) 300 mg HS PO ; Start 06/08/18 at 21:00; Stop 06/08/18 at 21:00; Status DC Amitriptyline HCl (Elavil) 100 mg QHS PO Last administered on 06/08/18 20:44; Start 06/08/18 at 21:00 Methimazole (Tapazole) 5 mg DAILY08 PO Last administered on 06/09/18 08:58; Start 06/08/18 at 09:30 Insulin Human Isoph/Insulin Regular (HumuLIN 70/30) 15 units BIDWMEALS SQ Last administered on 06/09/18 09:04; Start 06/08/18 at 17:00 Lorazepam (Ativan) 2 mg 1X ONCE IV Last administered on 06/08/18 15:45; Start 06/08/18 at 12:45; Stop 06/08/18 at 12:46; Status DC Lactobacillus Rhamnosus (Culturelle) 1 cap BID PO Last administered on 2/14/ 19at 08:56; Start 06/08/18 at 21:00 Lorazepam (Ativan) 2 mg 1X ONCE IV Last administered on 06/09/18at 09:15; Start 06/09/18 at 08:45; Stop 06/09/18 at 08:46; Status DC Meclizine HCl (Antivert) 12.5 mg PRN TID PRN PO DIZZINESS; Start 06/09/18 at 10 :45 Fludrocortisone Acetate (Florinef) 0.1 mg DAILY PO Last administered on at 15:16; Start 06/09/18 at 15:00 Active Scripts Active Prednisone 20 Mg Tablet 2 Tab PO DAILY Start 40mg daily on 05/16/18 Levaquin (Levofloxacin) 500 Mg Tablet 1 Tab PO DAILY Meclizine Hcl 25 Mg Tablet 1 Tab PO TID PRN Macrobid 100 Mg Capsule (Nitrofurantoin Monohyd/M-Cryst) 100 Mg Capsule 1 Cap PO BID Bactrim Ds Tablet (Sulfamethoxazole/Trimethoprim) 1 Each Tablet 1 Tab PO BID Fludrocortisone Acetate 0.1 Mg Tablet 0.1 Mg PO BID Fludrocortisone Acetate 0.1 Mg Tablet 0.1 Mg PO DAILY Levemir Flextouch (Insulin Detemir) 300 Units/3 Ml Insuln.pen 30 Units SQ QHS Novolog Flexpen (Insulin Aspart) 300 Units/3 Ml Insuln.pen 10 Units SQ TIDAC Reported Methimazole 5 Mg Tablet 5 Mg PO DAILY08 Gabapentin (Gabapentin) 300 Mg Capsule 300 Mg PO HS Amitriptyline Hcl 100 Mg Tablet 1 Tab PO QHS Lovastatin 20 Mg Tablet 1 Tab PO DAILY Vitals/I & O Vital Sign - Last 24 Hours 06/08/18 06/08/18 06/08/18 06/08/18 19:54 19:54 19:55 20:04 Temp 98.3 98.3 Pulse 96 98 96 Resp 18 B/P (MAP) 164/101 (122) 141/89 (106) 95/61 (72) Pulse Ox 96 O2 Delivery Room Air Room Air 06/08/18 06/09/18 06/09/18 06/09/18 23:18 03:35 07:32 08:00 Temp 98.4 98.3 98.3 98.4 98.3 98.3 Pulse 91 94 91 Resp 16 16 18 B/P (MAP) 108/69 (82) 110/64 (79) 116/71 (86) Pulse Ox 94 95 99 O2 Delivery Room Air Room Air Room Air Room Air 06/09/18 06/09/18 06/09/18 06/09/18 11:35 13:50 13:55 14:00 Temp 98.1 98.1 Pulse 90 Resp 18 B/P (MAP) 116/75 (89) 102/64 (77) 95/50 (65) 65/40 (48) Pulse Ox 99 O2 Delivery Room Air 06/09/18 15:34 Temp 97.8 97.8 Pulse 93 Resp 18 B/P (MAP) 135/80 (98) Pulse Ox 100 O2 Delivery Room Air Intake and Output 06/08/18 06/08/18 06/09/18 15:00 23:00 07:00 Intake Total 400 ml 500 ml 400 ml Balance 400 ml 500 ml 400 ml Images Brain MRI without contrast. HISTORY: Dizziness. Ataxia. Frequent falls. TECHNIQUE: Multiplanar, multisequence magnetic resonance imaging of the brain was performed without contrast. COMPARISON: Head CT dated 06/07/2018 and brain MRI dated 11/08/2017. FINDINGS: There is no restricted diffusion to suggest acute or subacute infarction. There is no susceptibility effect to suggest hemorrhage. There is no mass effect or midline shift. There is no hydrocephalus. There is nonspecific T2/FLAIR hyperintensity within the cerebral white matter, not significant changed compared to the prior MRI. The orbits are unremarkable. There is minimal paranasal sinus mucosal thickening. The mastoid air cells are unremarkable. There are normal flow voids within the cerebral vessels. IMPRESSION: 1. No acute intracranial finding. 2. Stable nonspecific signal change within the cerebral white matter, most commonly due to chronic small vessel disease. LANA ARAYA MD Jun 09, 2018 16:28
[2018-06-09] MEDS: ATORVASTATIN CALCIUM 10 MG TABLET. PO SCH (21:21)
[2018-06-09] MEDS: AMITRIPTYLINE HCL 50 MG TABLET PO SCH (21:21)
[2018-06-09] MEDS ORDERED: GABAPENTIN 300 MG CAPSULE. PO SCH (22:30)
[2018-06-10 03:00] VITALS: BP 112/72
[2018-06-10 07:50] VITALS: BP 156/90
[2018-06-10] MEDS: methIMAzole 10 MG TABLET PO SCH (08:30)
[2018-06-10] MEDS: FLUDROCORTISONE 0.1 MG TABLET PO SCH (08:30)
[2018-06-10] MEDS: LACTOBACILLUS RHAMNOSUS GG 1 CAPSULE. PO SCH (08:30)
[2018-06-10] MEDS: INSULIN NPH/REG INSULIN 70/30 300 UNITS/3 ML INSULN.PEN. SQ SCH (08:35)
[2018-06-10] MEDS: INSULIN LISPRO 300 UNITS/3 ML INSULN.PEN. SQ SCH ×2 (08:36→12:55)
--- NOTE | 2018-06-10 09:42 | PDOC ---
PROGRESS NOTES Assessment Problems Medical Problems: (1) Fever Status: Acute (2) Hypotension Status: Acute (3) Left lower lobe pneumonia Status: Acute (4) Vertigo Status: Acute Near syncope. Diabetic neuropathy and autonomic dysfunction, orthostatic No sign of new stroke HTN. DM, Hgb A1C 14.4 HLD. UTI. Plan Control hyperglycemia. BP management per cardiology, she is on florinef, could add midodrine. Continue Lipitor HS. ASA 81 mg daily Subjective not dizzy at present Objective Vital Signs Date Time Temp Pulse Resp B/P (MAP) Pulse Ox O2 Delivery O2 Flow Rate FiO2 06/10/18 07:50 97.8 97 16 156/90 (112) 97 Room Air 97.8 Intake and Output 06/10/18 07:00 Intake Total 1560 ml Balance 1560 ml Intake Oral 1560 ml # Voids 3 PHYSICAL EXAM Alert. Oriented to time, place and person. PERRL. EOMI, no nystagmus. CN: no focal findings. Muscle tone: normal. Muscle strength: 4/5 DTR: 1+ Plantar reflex: flexor Gait: not tested Sensory exam: stocking loss No cerebellar signs elicited. Review of Relevant I have reviewed the following items zurdo (where applicable) has been applied. Labs Laboratory Tests Test 06/08/18 11:32 06/08/18 17:21 06/08/18 23:06 06/09/18 07:20 Glucose (Fingerstick) 284 mg/dL (70-99) 252 mg/dL (70-99) 92 mg/dL (70-99) 245 mg/dL (70-99) Test 06/09/18 10:54 06/09/18 17:02 06/09/18 23:37 06/10/18 07:33 Glucose (Fingerstick) 214 mg/dL (70-99) 203 mg/dL (70-99) 164 mg/dL (70-99) 167 mg/dL (70-99) Laboratory Tests Test 06/09/18 10:54 06/09/18 17:02 06/09/18 23:37 06/10/18 07:33 Glucose (Fingerstick) 214 mg/dL (70-99) 203 mg/dL (70-99) 164 mg/dL (70-99) 167 mg/dL (70-99) Microbiology 06/07/18 Urine Culture - Preliminary, Resulted 2/12/19 Urine Culture Result 1 (GALILEA) - Preliminary, Resulted Medications Current Medications Meclizine HCl (Antivert) 25 mg 1X ONCE PO Last administered on 06/07/18at 15:36 ; Start 06/07/18 at 15:00; Stop 06/07/18 at 15:03; Status DC Sodium Chloride 1,000 ml @ 1,000 mls/hr 1X ONCE IV Last administered on at 15:36; Start 06/07/18 at 15:00; Stop 06/07/18 at 15:59; Status DC Ondansetron HCl (Zofran) 4 mg 1X ONCE IV Last administered on 06/07/18at 15:37 ; Start 06/07/18 at 15:00; Stop 06/07/18 at 15:03; Status DC Multi-Ingredient Mouthwash/Gargle (Gi Cocktail) 20 ml 1X ONCE SWSW Last administered on 06/07/18at 15:46; Start 06/07/18 at 15:45; Stop 06/07/18 at 15:46 ; Status DC Ceftriaxone Sodium (Rocephin) 1 gm 1X ONCE IVP Last administered on 06/07/18at 16:17; Start 06/07/18 at 16:00; Stop 06/07/18 at 16:01; Status DC Azithromycin 250 ml @ 250 mls/hr 1X ONCE IV Last administered on 06/07/18at 16 :22; Start 06/07/18 at 16:00; Stop 06/07/18 at 16:59; Status DC Ondansetron HCl (Zofran) 4 mg PRN Q8HRS PRN IV NAUSEA/VOMITING; Start 06/07/18 at 17:15; Stop 06/08/18 at 09:05; Status DC Acetaminophen (Tylenol) 650 mg PRN Q4HRS PRN PO FEVER Last administered on 06/08at 13:41; Start 06/07/18 at 17:15; Stop 06/08/18 at 17:14; Status DC Sodium Chloride 1,000 ml @ 125 mls/hr 1X ONCE IV Last administered on at 22:16; Start 06/07/18 at 17:15; Stop 06/08/18 at 01:14; Status DC Meclizine HCl (Antivert) 25 mg TID PRN PO DIZZINESS; Start 06/07/18 at 17:15; Stop 06/07/18 at 17:21; Status DC Meclizine HCl (Antivert) 25 mg PRN TID PRN PO DIZZINESS; Start 06/07/18 at 17: 30; Stop 06/09/18 at 10:42; Status DC Fludrocortisone Acetate (Florinef) 0.1 mg BID PO Last administered on at 08:58; Start 06/07/18 at 21:00; Stop 06/08/18 at 09:13; Status DC Atorvastatin Calcium (Lipitor) 5 mg QHS PO Last administered on 06/09/18at 21:21 ; Start 06/07/18 at 21:00 Non-Formulary Medication (Meclizine Hcl ) 1 tab TID PRN PO DIZZINESS; Start 04/13 at 17:30; Status UNV Insulin Human Lispro (HumaLOG) 0-5 UNITS TIDWMEALS SQ Last administered on 06/10at 08:36; Start 06/08/18 at 08:00 Dextrose (Dextrose 50%-Water Syringe) 12.5 gm PRN Q15MIN PRN IV SEE COMMENTS; Start 06/07/18 at 17:30 Gabapentin (Neurontin) 300 mg HS PO Last administered on 06/08/18at 20:43; Start 06/07/18 at 23:00; Stop 06/09/18 at 10:42; Status DC Ondansetron HCl (Zofran) 4 mg PRN Q6HRS PRN IV NAUSEA/VOMITING Last administered on 06/08/18at 13:41; Start 06/08/18 at 09:15 Levofloxacin (Levaquin) 500 mg DAILY06 PO Last administered on 06/10/18at 06:09 ; Start 06/09/18 at 06:00 Levofloxacin (Levaquin) 500 mg 1X ONCE PO Last administered on 06/08/18at 09:59 ; Start 06/08/18 at 09:15; Stop 06/08/18 at 09:16; Status DC Fludrocortisone Acetate (Florinef) 0.1 mg DAILY PO ; Start 06/09/18 at 09:00; Stop 06/09/18 at 09:00; Status DC Gabapentin (Neurontin) 300 mg HS PO ; Start 06/08/18 at 21:00; Stop 06/08/18 at 21:00; Status DC Amitriptyline HCl (Elavil) 100 mg QHS PO Last administered on 06/09/18 21:21; Start 06/08/18 at 21:00 Methimazole (Tapazole) 5 mg DAILY08 PO Last administered on 06/10/18 08:30; Start 06/08/18 at 09:30 Insulin Human Isoph/Insulin Regular (HumuLIN 70/30) 15 units BIDWMEALS SQ Last administered on 06/10/18 08:35; Start 06/08/18 at 17:00 Lorazepam (Ativan) 2 mg 1X ONCE IV Last administered on 06/08/18 15:45; Start 06/08/18 at 12:45; Stop 06/08/18 at 12:46; Status DC Lactobacillus Rhamnosus (Culturelle) 1 cap BID PO Last administered on 08:30; Start 06/08/18 at 21:00 Lorazepam (Ativan) 2 mg 1X ONCE IV Last administered on 06/09/18at 09:15; Start 06/09/18 at 08:45; Stop 06/09/18 at 08:46; Status DC Meclizine HCl (Antivert) 12.5 mg PRN TID PRN PO DIZZINESS; Start 06/09/18 at 10 :45 Fludrocortisone Acetate (Florinef) 0.1 mg DAILY PO Last administered on 08:30; Start 06/09/18 at 15:00 Gabapentin (Neurontin) 300 mg HS PO Last administered on 06/09/18at 22:30; Start 06/09/18 at 22:30 Active Scripts Active Prednisone 20 Mg Tablet 2 Tab PO DAILY Start 40mg daily on 05/16/18 Levaquin (Levofloxacin) 500 Mg Tablet 1 Tab PO DAILY Meclizine Hcl 25 Mg Tablet 1 Tab PO TID PRN Macrobid 100 Mg Capsule (Nitrofurantoin Monohyd/M-Cryst) 100 Mg Capsule 1 Cap PO BID Bactrim Ds Tablet (Sulfamethoxazole/Trimethoprim) 1 Each Tablet 1 Tab PO BID Fludrocortisone Acetate 0.1 Mg Tablet 0.1 Mg PO BID Fludrocortisone Acetate 0.1 Mg Tablet 0.1 Mg PO DAILY Levemir Flextouch (Insulin Detemir) 300 Units/3 Ml Insuln.pen 30 Units SQ QHS Novolog Flexpen (Insulin Aspart) 300 Units/3 Ml Insuln.pen 10 Units SQ TIDAC Reported Methimazole 5 Mg Tablet 5 Mg PO DAILY08 Gabapentin (Gabapentin) 300 Mg Capsule 300 Mg PO HS Amitriptyline Hcl 100 Mg Tablet 1 Tab PO QHS Lovastatin 20 Mg Tablet 1 Tab PO DAILY Vitals/I & O Vital Sign - Last 24 Hours 06/09/18 06/09/18 06/09/18 06/09/18 11:35 13:50 13:55 14:00 Temp 98.1 98.1 Pulse 90 Resp 18 B/P (MAP) 116/75 (89) 102/64 (77) 95/50 (65) 65/40 (48) Pulse Ox 99 O2 Delivery Room Air 06/09/18 06/09/18 06/09/18 06/09/18 15:34 19:00 20:00 23:00 Temp 97.8 98.2 98.0 97.8 98.2 98.0 Pulse 93 106 97 Resp 18 16 16 B/P (MAP) 135/80 (98) 140/89 (106) 138/81 (100) Pulse Ox 100 95 99 O2 Delivery Room Air Room Air Room Air Room Air 06/10/18 06/10/18 03:00 07:50 Temp 98.2 97.8 98.2 97.8 Pulse 94 97 Resp 16 16 B/P (MAP) 112/72 (85) 156/90 (112) Pulse Ox 91 97 O2 Delivery Room Air Room Air Intake and Output 06/09/18 06/09/18 06/10/18 15:00 23:00 07:00 Intake Total 300 ml 600 ml 660 ml Balance 300 ml 600 ml 660 ml LANA ARAYA MD Jun 10, 2018 09:42
[2018-06-10 10:27] VITALS: BP 120/81
--- NOTE | 2018-06-10 11:32 | PDOC3 ---
Discharge Summary Visit Information Date of Admission: Jun 07, 2018 Date of Discharge: Jun 10, 2018 Admitting Diagnosis Comment: LEFT lower lobe pneumonitis marked orthostatic hypotension; HYPOCORTISOLISM (cortisol 3) Dm2, mod control prior CVA hypoglycemia ECHO 10/2017 The left ventricular systolic function is normal and the ejection fraction is within normal range. EF 55% There is normal LV segmental wall motion. Vertigo Claustrophobia HX falls FAll risk Final Diagnosis Problems Medical Problems: (1) Fever Status: Acute (2) Hypotension Status: Acute (3) Left lower lobe pneumonia Status: Acute (4) Vertigo Status: Acute Brief Hospital Course Allergies Allergies Coded Allergies Type Severity Reaction Last Updated Verified raspberry Allergy Severe CHOKING SENSATION IN THROAT 10/25/15 Yes amoxicillin Allergy Intermediate 10/13/17 Yes aspirin Allergy Intermediate 10/13/17 Yes codeine Allergy Intermediate 10/13/17 Yes ibuprofen Allergy Intermediate 10/13/17 Yes morphine Allergy Intermediate 10/13/17 Yes Vital Signs Vital Signs Date Time Temp Pulse Resp B/P (MAP) Pulse Ox O2 Delivery O2 Flow Rate FiO2 06/10/18 10:27 97.9 106 18 120/81 (94) 95 Room Air 97.9 Lab Results Laboratory Tests Test 06/08/18 11:32 06/08/18 17:21 06/08/18 23:06 06/09/18 07:20 Glucose (Fingerstick) 284 mg/dL (70-99) 252 mg/dL (70-99) 92 mg/dL (70-99) 245 mg/dL (70-99) Test 06/09/18 10:54 06/09/18 17:02 06/09/18 23:37 06/10/18 07:33 Glucose (Fingerstick) 214 mg/dL (70-99) 203 mg/dL (70-99) 164 mg/dL (70-99) 167 mg/dL (70-99) Laboratory Tests Test 06/09/18 17:02 06/09/18 23:37 06/10/18 07:33 Glucose (Fingerstick) 203 mg/dL (70-99) 164 mg/dL (70-99) 167 mg/dL (70-99) Brief Hospital Course Ms. Wright is a 58 old white female who was admitted for hypotension. She was symptomatic. She has history of what sounds like cortisol insufficiency because she was on flludrocortisone started by barb but that was discontinued when her blood pressure was 177. I did check cortisol levels that she has not been taking fludrocortisone for about 2 months now (as instructed by her PCP) and her levels are less than 4. Comanage with cardiology. Comanagement with neurology. Recommended taking restart fludrocortisone and I agree. Even midodrine was an option but we will start fludrocortisone for now as she can run high sometimes with fludrocortisone alone. Extensive education about checking blood pressure first before taking and the fludrocortisone. MRI brain negative. Cardiac workup negative. Incidental pneumonitis on x-ray and she does have some mild cough. I do believe she finished a course of Levaquin or Bactrim or maybe has not yet finished a course Anyways aspirin 81 Lipitor 20, fludrocortisone 0.1 by mouth daily, cough medicine when necessary, nebulizer when necessary, all on chart. She requests to be called to his pharmacy . Consults performed: Cards, neurology Procedures performed none Discharge Information Condition at Discharge: Improved, Stable Follow Up: Weeks (BARB re LOW BP and start of fludrocortisone) Disposition/Orders: D/C to Home Scheduled Amitriptyline Hcl (Amitriptyline Hcl) 100 Mg Tablet, 1 TAB PO QHS for neuropathy , (Reported) Entered as Reported by: INNA SETHI on 06/07/182234 Last Action: Converted on 06/08/18905 by REGINA DAVID Fludrocortisone Acetate (Fludrocortisone Acetate) 0.1 Mg Tablet, 0.1 MG PO DAILY , #30 Prescribed by: PAT MCCOY on 11/08/17 0950 Last Action: Continued on 06/08/18905 by REGINA DAVID Fludrocortisone Acetate (Fludrocortisone Acetate) 0.1 Mg Tablet, 0.1 MG PO BID, #60 Prescribed by: ANCA GOVEA APRN on 01/02/181944 Last Action: Continued on 06/07/181727 by PARMINDER LARSON MD Gabapentin (Gabapentin ) 300 Mg Capsule, 300 MG PO HS for NEUROGENIC PAIN, ( Reported) Entered as Reported by: INNA SETHI on 06/07/182234 Last Action: Continued on 06/08/18905 by REGINA DAVID Insulin Aspart (Novolog Flexpen) 300 Units/3 Ml Insuln.pen, 10 UNITS SQ TIDAC, # 90 Ref 5 Prescribed by: PAT MCCOY on 11/27/14 141 Last Action: HELD on 06/08/18905 by REGINA DAVID Insulin Detemir (Levemir Flextouch) 300 Units/3 Ml Insuln.pen, 30 UNITS SQ QHS, #30 Ref 4 Prescribed by: PAT MCCOY on 11/27/14 141 Last Action: HELD on 06/08/18905 by REGINA DAVID Levofloxacin (Levaquin) 500 Mg Tablet, 1 TAB PO DAILY, #7 Prescribed by: Mary Ellen Yusuf APRN on 01/29/18 1541 Last Action: HELD on 06/08/18905 by REGINA DAVID Lovastatin (Lovastatin) 20 Mg Tablet, 1 TAB PO DAILY, #90 Ref 1 (Reported) Entered as Reported by: LUCIO OROPEZA RN on 11/04/17 1319 Last Action: Converted on 06/07/181727 by PARMINDER LARSON MD Methimazole (Methimazole) 5 Mg Tablet, 5 MG PO DAILY08 for hyperthyroid, ( Reported) Entered as Reported by: INNA SETHI on 06/07/182234 Last Action: Converted on 06/08/18905 by REGINA DAVID Nitrofurantoin Monohyd/M-Cryst (Macrobid 100 Mg Capsule) 100 Mg Capsule, 1 CAP PO BID, #10 Prescribed by: FAROOQ WISEMAN on 01/12/18 1108 Last Action: HELD on 06/08/18905 by REGINA DAVID Prednisone (Prednisone) 20 Mg Tablet, 2 TAB PO DAILY, #8 Ref 0 Start 40mg daily on 05/16/18 Prescribed by: GABRIEL RAYMOND APRN on 05/15/18 1812 Last Action: HELD on 06/08/18905 by REGINA DAVID Sulfamethoxazole/Trimethoprim (Bactrim Ds Tablet) 1 Each Tablet, 1 TAB PO BID, # 20 Prescribed by: ANCA GOVEA APRN on 01/02/18 194 Last Action: HELD on 06/08/18905 by REGINA DAVID Scheduled PRN Meclizine Hcl (Meclizine Hcl) 25 Mg Tablet, 1 TAB PO TID PRN for DIZZINESS, #30 Prescribed by: Mary Ellen Yusuf APRN on 01/29/18 1541 Last Action: Converted on 06/07/181727 by PARMINDER LARSON MD Discontinued Medications Amitriptyline Hcl (Amitriptyline Hcl) 50 Mg Tablet, 1 TAB PO QHS, #30 Ref 1 ( Reported) Discontinued Reason: Prescription changed Entered as Reported by: LUCIO OROPEZA, RN on 11/04/17 1320 Last Action: HELD on 06/07/181727 by MD JOANN OCONNOR CHERRIE Y MD Jun 10, 2018 11:32
[2018-06-10] MEDS ORDERED: HYDROCORTISONE 10 MG TABLET PO STA (12:15)
[2018-06-10] MEDS ORDERED: HYDROCORTISONE SOD SUCC/PF 100 MG/2 ML VIAL. IM ONE (12:30)
--- NOTE | 2018-06-10 12:56 | DISCH ---
DISCHARGE WITH HOME HEALTH DISCHARGE INFORMATION: Discharge Date: Jun 10, 2018 Final Diagnosis: Problems Medical Problems: (1) Fever Status: Acute (2) Hypotension Status: Acute (3) Left lower lobe pneumonia Status: Acute (4) Vertigo Status: Acute Condition on Discharge: Stable CODE STATUS: Code Status: Full HOME HEALTH: Face to Face: I certify this patient is under my care and that I, or a nurse practitioner or physician's mailroom assistant working with me, had a face to face encounter that meets the physician face to face encounter requirements with this patient on []. Physical Therapy For: Evalulation/Treatment Occupational Therapy For: Evaluation/Treatment Home Health Aide For: Self-care DIRECTOR ELECTRICAL ENGINEERING For: Community Resources Pt Meets Homebound Status: Unsteady balance w/ amb, POST DISCHARGE ORDERS: Activity Instructions for Disc: Activity as tolerated Weight Bearing Status after Di: As tolerated Bathing Instructions: Shower-keep dressing dry DIET AFTER DISCHARGE: Regular CHECKS AFTER DISCHARGE: Checks after discharge: Check blood press - daily TREATMENT/EQUIPMENT ORDERS: Adaptive Equipment Issued: None CERTIFICATION STATEMENT: Certification Statement: Certification Statement: Based on the above finding, I certify that this patient is confined to the home and needs intermittent fdc care, physical therapy and/or speech therapy, or continues to need occupational therapy.~ This patient is under my care, and I have initiated the establishment of the plan of care.~ This patient will be followed by myself or a community physician who will periodically review the plan of care. Home Meds Active Scripts Prednisone (PREDNISONE) 20 Mg Tablet, 2 TAB PO DAILY, #8 TAB 0 Refills Start 40mg daily on 05/16/18 Prov:GABRIEL RAYMOND APRN 05/15/18 Levofloxacin (LEVAQUIN) 500 Mg Tablet, 1 TAB PO DAILY, #7 TAB Prov:SHARONDA DIAZ SUMMER NANNY 01/29/18 Meclizine Hcl (MECLIZINE HCL) 25 Mg Tablet, 1 TAB PO TID PRN for DIZZINESS, #30 TAB Prov:SHARONDA DIAZ APRN 01/29/18 Nitrofurantoin Monohyd/M-Cryst (MACROBID 100 MG CAPSULE) 100 Mg Capsule, 1 CAP PO BID, #10 CAP Prov:FAROOQ WISEMAN MD 01/12/18 Sulfamethoxazole/Trimethoprim (BACTRIM DS TABLET) 1 Each Tablet, 1 TAB PO BID, # 20 TAB Prov:ANCA GOVEA SUMMER NANNY 01/02/18 Fludrocortisone Acetate (FLUDROCORTISONE ACETATE) 0.1 Mg Tablet, 0.1 MG PO BID, #60 TAB Prov:ANCA GOVEA SUMMER NANNY 01/02/18 Fludrocortisone Acetate (FLUDROCORTISONE ACETATE) 0.1 Mg Tablet, 0.1 MG PO DAILY , #30 TAB Prov:PAT MCCOY MD 11/08/17 Insulin Detemir (Levemir Flextouch) 300 Units/3 Ml Insuln.pen, 30 UNITS SQ QHS, #30 4 Refills Prov:PAT MCCOY MD 11/27/14 Insulin Aspart (NOVOLOG FLEXPEN) 300 Units/3 Ml Insuln.pen, 10 UNITS SQ TIDAC, # 90 5 Refills Prov:PAT MCCOY MD 11/27/14 Reported Medications Methimazole (METHIMAZOLE) 5 Mg Tablet, 5 MG PO DAILY08 for hyperthyroid, TAB 06/07/18 Gabapentin (GABAPENTIN ) 300 Mg Capsule, 300 MG PO HS for NEUROGENIC PAIN, CAP 06/07/18 Amitriptyline Hcl (AMITRIPTYLINE HCL) 100 Mg Tablet, 1 TAB PO QHS for neuropathy , TAB 06/07/18 Lovastatin (LOVASTATIN) 20 Mg Tablet, 1 TAB PO DAILY, #90 TAB 1 Refill 11/04/17 Discontinued Reported Medications Amitriptyline Hcl (AMITRIPTYLINE HCL) 50 Mg Tablet, 1 TAB PO QHS, #30 TAB 1 Refill 11/04/17 REGINA DAVID MD Jun 10, 2018 12:56
[2018-10-12] MEDS ORDERED: HYDR-2761 PO (09:01)
[2018-10-12] MEDS ORDERED: ACETAMINOPHEN PM PO (09:01)
== END 2018-06-10 13:45 | disposition home health service (06) | DRG 640 ==
LOC: ER 14:51 → 6 SOUTH 17:02
PROVIDERS: ADMIT Family Medicine; ATTEND Family Medicine
DX: E86.0 Dehydration (principal); J18.1 Lobar pneumonia, unspecified organism; J44.0 Chronic obstructive pulmonary disease with (acute) lower respiratory infection; N39.0 Urinary tract infection, site not specified; R27.0 Ataxia, unspecified; I95.1 Orthostatic hypotension; E05.20 Thyrotoxicosis with toxic multinodular goiter without thyrotoxic crisis or storm; E11.43 Type 2 diabetes mellitus with diabetic autonomic (poly)neuropathy; E11.65 Type 2 diabetes mellitus with hyperglycemia; I10 Essential (primary) hypertension; R79.89 Other specified abnormal findings of blood chemistry; F40.240 Claustrophobia; E11.51 Type 2 diabetes mellitus with diabetic peripheral angiopathy without gangrene; E78.5 Hyperlipidemia, unspecified; F32.9 Major depressive disorder, single episode, unspecified; F41.9 Anxiety disorder, unspecified; M19.90 Unspecified osteoarthritis, unspecified site; Z86.14 Personal history of Methicillin resistant Staphylococcus aureus infection; Z79.899 Other long term (current) drug therapy; Z86.73 Personal history of transient ischemic attack (TIA), and cerebral infarction without residual deficits; Z79.82 Long term (current) use of aspirin; Z83.3 Family history of diabetes mellitus; Z88.6 Allergy status to analgesic agent; Z88.1 Allergy status to other antibiotic agents; Z88.5 Allergy status to narcotic agent; Z88.8 Allergy status to other drugs, medicaments and biological substances; Z91.018 Allergy to other foods
CPT/HCPCS: 36415; 70450; 70551; 71045; 80048; 80053; 80061; 80307; 81001; 82533; 82553; 82962; 83036; 83735; 83880; 84443; 84484; 85025; 85610; 87086; 87186; 87641; 93005; 96374; 96375; J0456; J0696; J1720; J1815; J2060; J2405; J7030; J8597; 97110; 99285-25; G0378

== ENCOUNTER 2018-07-18 19:47 | Emergency (ER) | payer OTHER ==
[~2018-07-18] VITALS: Ht 175.3 cm; Wt 63.5 kg
[~2018-07-18 19:47] MED LIST changes: +AMIT100T PO; +GABA300C18 PO; +METH5TAB6 PO
[2018-07-18] MEDS ORDERED: INSULIN NPH/REG INSULIN 70/30 300 UNITS/3 ML INSULN.PEN. SQ ONE (20:30)
[2018-07-18] MEDS ORDERED: IV NORMAL SALINE 1000ML BAG 1,000 ML IV ONE ×2 (20:30→22:00)
[2018-07-18 20:40] LABS: BILIRUBIN,URINE NEGATIVE (NEG); CLARITY,URINE CLEAR; COLOR,URINE YELLOW; NITRITE,URINE NEGATIVE (NEG); PROTEIN,URINE 30 mg/dL (NEG-TRACE); UROBILINOGEN,URINE 0.2 mg/dL (0.2 mg/dL)
[2018-07-18 20:46] LABS: BACTERIA,URINE 0 /HPF (0-FEW); SQUAMOUS EPITHELIAL CELL,UR FEW /LPF
--- NOTE | 2018-07-18 20:48 | PHYS DOC ---
Past Medical History Past Medical History: Arthritis, Diabetes-Type II, High Cholesterol, Hypotension, MRSA Additional Past Medical Histor: MRSA Past Surgical History: Other Additional Past Surgical Histo: R LEG I&D,L FOOT SURG Alcohol Use: None Drug Use: None Adult General Chief Complaint Chief Complaint: TREMORS HPI HPI Patient is a 58 year old female who presents with states she's been getting tremors off and on for the last month that usually lasts for 5 minutes and then go away. Patient states today she been having tremors for 30 minutes straight and had not stopped. When patient came back to the ED her tremors were stopped. Patient has a history of a stroke in 2009, diabetes, neuropathy and balance issues since September. Patient states because of her balance issues that the doctors have had her using a walker and a cane she has no residual from the stroke itself. Patient states also today she has not been able to take her nighttime insulin has been on the go all day. Patient's glucose level in the ED is 458. Patient states she takes Novolin 70/30 15 units at night and has not taken it yet. Review of Systems Review of Systems Constitutional: Denies fever or chills [] Eyes: Denies change in visual acuity, redness, or eye pain [] HENT: Denies nasal congestion or sore throat [] Respiratory: Denies cough or shortness of breath [] Cardiovascular: No additional information not addressed in HPI [] GI: Denies abdominal pain, nausea, vomiting, bloody stools or diarrhea [] : Denies dysuria or hematuria [] Musculoskeletal: Denies back pain or joint pain [] Integument: Denies rash or skin lesions [] Neurologic: Tremors. Denies headache, focal weakness or sensory changes [] Endocrine: Denies polyuria or polydipsia [] All other systems were reviewed and found to be within normal limits, except as documented in this note. Current Medications Current Medications Current Medications Medications (Trade) Dose Ordered Sig/[place] Start Time Stop Time Status Last Admin Dose Admin Insulin Human Isoph/Insulin Regular (HumuLIN 70/30) 15 units 1X ONCE 07/18/18 20:30 07/18/18 20:43 DC 07/18/18 21:51 15 UNITS Sodium Chloride 1,000 ml @ 1,000 mls/hr 1X ONCE 07/18/18 22:00 07/18/18 22:59 07/18/18 22:27 1,000 MLS/HR Allergies Allergies Allergies Coded Allergies Type Severity Reaction Last Updated Verified raspberry Allergy Severe CHOKING SENSATION IN THROAT 10/25/15 Yes amoxicillin Allergy Intermediate 10/13/17 Yes aspirin Allergy Intermediate 10/13/17 Yes codeine Allergy Intermediate 10/13/17 Yes ibuprofen Allergy Intermediate 10/13/17 Yes morphine Allergy Intermediate 10/13/17 Yes Physical Exam Physical Exam Constitutional: Well developed, well nourished, no acute distress, non-toxic appearance. [] HENT: Normocephalic, atraumatic, bilateral external ears normal, oropharynx moist, no oral exudates, nose normal. [] Eyes: PERRLA, EOMI, conjunctiva normal, no discharge. [] Neck: Normal range of motion, no tenderness, supple, no stridor. [] Cardiovascular:Heart rate regular rhythm, no murmur [] Lungs & Thorax: Bilateral breath sounds clear to auscultation [] Abdomen: Bowel sounds normal, soft, no tenderness, no masses, no pulsatile masses. [] Skin: Warm, dry, no erythema, no rash. [] Back: No tenderness, no CVA tenderness. [] Extremities: Bilateral arm tremors. No tenderness, no cyanosis, no clubbing, ROM intact, no edema. [] Neurologic: Alert and oriented X 3, normal motor function, normal sensory function, no focal deficits noted. [] Psychologic: Affect normal, judgement normal, mood normal. [] Current Patient Data Vital Signs Vital Signs Date Time Temp Pulse Resp B/P (MAP) Pulse Ox O2 Delivery O2 Flow Rate FiO2 07/18/18 20:07 98.8 99 16 159/87 (111) 99 Room Air 98.8 Lab Values Laboratory Tests Test 07/18/18 20:15 07/18/18 20:26 07/18/18 21:05 Urine Collection Type Unknown Urine Color Yellow Urine Clarity Clear Urine pH 6.0 Urine Specific [place] >=1.030 Urine Protein 30 mg/dL (NEG-TRACE) Urine Glucose (UA) >=1000 mg/dL (NEG) Urine Ketones (Stick) Negative mg/dL (NEG) Urine Blood Small (NEG) Urine Nitrite Negative (NEG) Urine Bilirubin Negative (NEG) Urine Urobilinogen Dipstick 0.2 mg/dL (0.2 mg/dL) Urine Leukocyte Esterase Negative (NEG) Urine RBC 6-10 /HPF (0-2) Urine WBC 1-4 /HPF (0-4) Urine Squamous Epithelial Cells Few /LPF Urine Bacteria 0 /HPF (0-FEW) Glucose (Fingerstick) 458 mg/dL (70-99) H White Blood Count 4.8 x10^3/uL (4.0-11.0) Red Blood Count 4.09 x10^6/uL (3.50-5.40) Hemoglobin 11.2 g/dL (12.0-15.5) L Hematocrit 34.2 % (36.0-47.0) L Mean Corpuscular Volume 84 fL (79-100) Mean Corpuscular Hemoglobin 27 pg (25-35) Mean Corpuscular Hemoglobin Concent 33 g/dL (31-37) Red Cell Distribution Width 13.0 % (11.5-14.5) Platelet Count 224 x10^3/uL (140-400) Neutrophils (%) (Auto) 50 % (31-73) Lymphocytes (%) (Auto) 38 % (24-48) Monocytes (%) (Auto) 8 % (0-9) Eosinophils (%) (Auto) 4 % (0-3) H Basophils (%) (Auto) 1 % (0-3) Neutrophils # (Auto) 2.4 x10^3uL (1.8-7.7) Lymphocytes # (Auto) 1.8 x10^3/uL (1.0-4.8) Monocytes # (Auto) 0.4 x10^3/uL (0.0-1.1) Eosinophils # (Auto) 0.2 x10^3/uL (0.0-0.7) Basophils # (Auto) 0.0 x10^3/uL (0.0-0.2) Sodium Level 138 mmol/L (136-145) Potassium Level 4.2 mmol/L (3.5-5.1) Chloride Level 99 mmol/L (98-107) Carbon Dioxide Level 31 mmol/L (21-32) Anion Gap 8 (6-14) Blood Urea Nitrogen 24 mg/dL (7-20) H Creatinine 0.8 mg/dL (0.6-1.0) Estimated GFR (Cockcroft-Gault) 74.2 BUN/Creatinine Ratio 30 (6-20) H Glucose Level 482 mg/dL (70-99) H Calcium Level 9.2 mg/dL (8.5-10.1) Total Bilirubin 0.2 mg/dL (0.2-1.0) Aspartate Amino Transferase (AST) 17 U/L (15-37) Alanine Aminotransferase (ALT) 22 U/L (14-59) Alkaline Phosphatase 119 U/L (46-116) H Troponin I Quantitative < 0.017 ng/mL (0.000-0.055) Total Protein 7.2 g/dL (6.4-8.2) Albumin 3.1 g/dL (3.4-5.0) L Albumin/Globulin Ratio 0.8 (1.0-1.7) L Lipase 210 U/L (73-393) Laboratory Tests 07/18/18 21:05 Laboratory Tests 07/18/18 21:05 EKG EKG Sinus Rhythm and no STEMI Interpretation Time: [address] Norton Radiology/Procedures Radiology/Procedures [] Impressions: [facility] [address] [place] [address] IMAGING REPORT Signed PATIENT: TAYLOR SARAVIA ACCOUNT: [id number] : 1960 LOCATION: ER AGE: 58 SEX: F EXAM STATUS: REG ER ORD. PHYSICIAN: REENA LOVELACE APRN REASON: tremors PROCEDURE: CT HEAD WO CONTRAST EXAM: CT Head without IV contrast CLINICAL HISTORY: TREMORS COMPARISON: CT head 06/07/2018. TECHNIQUE: Routine CT of the head without contrast. Soft tissues and bone windows were reviewed. PQRS compliance statement - One or more of the following individualized dose reduction techniques were utilized for this study: 1. Automated exposure control 2. Adjustment of the mA and/or kV according to patient size 3. Use of iterative reconstruction technique FINDINGS: There is no evidence of hemorrhage, mass or extra-axial fluid collection. Morton-white differentiation is maintained with no evidence of edema. There is no mass effect or shift of the intracranial structures. The ventricles, basilar cisterns and cortical sulci are normal in size and configuration for the patients stated age. The cerebellum and brainstem are unremarkable. The calvarium demonstrates no evidence of fracture or focal lesion. There is normal aeration of the visualized paranasal sinuses and mastoid air cells. The visualized portions of the orbits are normal. IMPRESSION: No evidence for acute intracranial process. Electronically signed by: Christiano Sears MD (07/18/2018 9:42 PM) [facility] DICTATED and SIGNED BY: CHRISTIANO SEARS MD DATE: 07/18/182141 Course & Med Decision Making Course & Med Decision Making Patient is a 58 year old female who presents with states she's been getting tremors off and on for the last month that usually lasts for 5 minutes and then go away. Patient states today she been having tremors for 30 minutes straight and had not stopped. When patient came back to the ED her tremors were stopped. Patient has a history of a stroke in 2009, diabetes, neuropathy and balance issues since September. Patient states because of her balance issues that the doctors have had her using a walker and a cane she has no residual from the stroke itself. Patient states also today she has not been able to take her nighttime insulin has been on the go all day. Patient's glucose level in the ED is 458. Patient states she takes Novolin 70/30 15 units at night and has not taken it yet. Patient denies polyuria or polydipsia. Examination exam in the patient her tremors began again in her arms and hands bilaterally. Patient states that she has not been seen by her primary care presents September because she has not had another appointment has not needed to see him she has not told him about her tremors. Alert and oriented. Speaks in full clear sentences. Patient denies shortness of breath, chest pain, headache, visual changes, weaknesses, any new numbness or tingling besides her neuropathy, syncope, dizziness, abdominal pain, nausea, vomiting, diarrhea, fever. Patient is given her dose of normal and 70/30 15 units in the ED for her blood sugar. Lungs are clear to auscultation all lobes. There is no extremity swelling. Heart regular without murmur. PERRLA. Neurologically intact. Patient's only complaint is tremors. Patient has no pain. 2230: 30 minutes after insulin is given patient's blood sugars down at 345. Patient's tremors have gone away and she states she is feeling much better and she would like to go home. CT head shows no acute findings. Chest x-ray which is read by Dr. Norton shows no acute findings. Blood work is unremarkable in elevated levels of BUN is a same from one month ago. Urinalysis shows no infection. Patient received 2 bags of normal saline. Patient has no complaints at this time. Patient has no new symptoms. Vital signs have remained within normal limits. She is stable for discharge. Patient will need to call her primary care doctor for follow-up appointment and I will also refer her to neurology. Dragon Disclaimer Dragon Disclaimer This electronic medical record was generated, in whole or in part, using a voice recognition dictation system. Departure Departure Impression: Primary Impression: Occasional tremors Additional Impression: Hyperglycemia Disposition: 01 HOME, SELF-CARE Condition: STABLE Referrals: ANN KIRK (PCP) HARDY SHEPARD MD Patient Instructions: Hyperglycemia, Tremor Additional Instructions: Call primary care doctor in the morning for a follow-up appointment. I have also referred due to her neurologist and I think he should also make an appointment with neurologist concerning or tremors. Take all of her medications as prescribed. Problem Qualifiers REENA LOVELACE APRN Jul 18, 2018 20:48
[2018-07-18 21:16] LABS: BASO % 1 % (0-3); EOS # 0.2 x10^3/uL (0.0-0.7); EOS % 4 % (0-3); HEMATOCRIT 34.2 % (36.0-47.0); HEMOGLOBIN 11.2 g/dL (12.0-15.5); LYMPH # 1.8 x10^3/uL (1.0-4.8); LYMPH % 38 % (24-48); MEAN CORPUSCULAR HEMOGLOBIN 27 pg (25-35); MEAN CORPUSCULAR HGB CONC 33 g/dL (31-37); MEAN CORPUSCULAR VOLUME 84 fL (79-100); MONO # 0.4 x10^3/uL (0.0-1.1); MONO % 8 % (0-9); NEUT # 2.4 x10^3uL (1.8-7.7); NEUT % 50 % (31-73); PLATELET COUNT 224 x10^3/uL (140-400); RED BLOOD COUNT 4.09 x10^6/uL (3.50-5.40); WHITE BLOOD COUNT 4.8 x10^3/uL (4.0-11.0)
[2018-07-18 21:26] LABS: CALCIUM 9.2 mg/dL (8.5-10.1); CREATININE 0.8 mg/dL (0.6-1.0)
[2018-07-18 21:27] LABS: GFR 74.2; POTASSIUM 4.2 mmol/L (3.5-5.1)
[2018-07-18 21:35] LABS: ALBUMIN 3.1 g/dL (3.4-5.0); ALBUMIN/GLOBULIN RATIO 0.8 (1.0-1.7); TOTAL BILIRUBIN 0.2 mg/dL (0.2-1.0); TOTAL PROTEIN 7.2 g/dL (6.4-8.2)
--- NOTE | 2018-07-18 21:45 | RAD ---
EXAM: CT Head without IV contrast CLINICAL HISTORY: TREMORS COMPARISON: CT head 06/07/2018. TECHNIQUE: Routine CT of the head without contrast. Soft tissues and bone windows were reviewed. RS compliance statement - One or more of the following individualized dose reduction techniques were utilized for this study: 1. Automated exposure control 2. Adjustment of the mA and/or kV according to patient size 3. Use of iterative reconstruction technique FINDINGS: There is no evidence of hemorrhage, mass or extra-axial fluid collection. Morton-white differentiation is maintained with no evidence of edema. There is no mass effect or shift of the intracranial structures. The ventricles, basilar cisterns and cortical sulci are normal in size and configuration for the patients stated age. The cerebellum and brainstem are unremarkable. The calvarium demonstrates no evidence of fracture or focal lesion. There is normal aeration of the visualized paranasal sinuses and mastoid air cells. The visualized portions of the orbits are normal. IMPRESSION: No evidence for acute intracranial process. Electronically signed by: Christiano Jim MD (07/18/2018 9:42 PM) [facility]
[2018-07-18 22:50] VITALS: BP 107/82
--- NOTE | 2018-07-19 00:15 | RAD ---
EXAM: PA and Lateral Views of the Chest DATE: 07/18/2018 9:12 PM INDICATION: TREMORS, LOW BLOOD PRESSURE COMPARISON: 06/07/2018, 03/21/2018 FINDINGS: The heart is not enlarged. Mediastinal and hilar contours are normal. No focal parenchymal airspace opacity. No pleural effusion or pneumothorax. IMPRESSION: No evidence for acute cardiopulmonary process. Electronically signed by: Christiano Jim MD (07/19/2018 12:12 AM) [facility]
--- NOTE | 2018-07-19 05:15 | EKG ---
[facility] [address] [place] [address] Test Date: 2018-07-18 Test Time: 20:42:39 Pat Name: TAYLOR SARAVIA Department: Room: Gender: F Medical Officer: : 1960 Requested By: REENA LOVELACE Order Number: [id number] Reading MD: Kristian Mcnamara MD Measurements Intervals [place] Rate: 94 P: 0 WA: 156 QRS: -31 QRSD: 88 T: 35 QT: 354 QTc: 448 Interpretive Statements SINUS RHYTHM ABNORMAL LEFT AXIS DEVIATION LEFT ANTERIOR FASCICULAR BLOCK QRS(T) CONTOUR ABNORMALITY CONSISTENT WITH ANTEROSEPTAL INFARCT NON-SPECIFIC ST/T CHANGES CONSIDER PRIOR SEPTAL INFARCT Electronically Signed On 07-19-2018 9:18:12 CDT by Kristian Mcnamara MD
== END 2018-07-18 23:21 | disposition home or self-care (01) ==
LOC: ER 19:47
DX: E11.65 Type 2 diabetes mellitus with hyperglycemia (principal); E11.40 Type 2 diabetes mellitus with diabetic neuropathy, unspecified; R25.1 Tremor, unspecified; M19.90 Unspecified osteoarthritis, unspecified site; E78.00 Pure hypercholesterolemia, unspecified; Z88.1 Allergy status to other antibiotic agents; Z88.6 Allergy status to analgesic agent; Z88.5 Allergy status to narcotic agent; Z91.018 Allergy to other foods
CPT/HCPCS: 36415; 70450; 71046; 80053; 81001; 82962; 83690; 84484; 85025; 93005; 96360; 96361; 96372; 99284; J1815; J7030

== ENCOUNTER → 2018-08-05 | Outpatient (CLI) | payer OTHER ==
[2018-07-18 22:50] VITALS: BP 107/82
[~2018-08-05] MED LIST changes: +CEPH-264 PO; +DOXY25TA42 PO; +HUM100VI5 SQ; +INSU100I32 SQ; +LOVA10TA PO; +MIDO10TA PO
[2018-08-05 17:31] LABS: FREE T4 1.05 ng/dL (0.76-1.46); THYROID STIM HORMONE (TSH) 0.845 uIU/mL (0.358-3.74)
== END | disposition home or self-care (01) ==
LOC: LAB 15:34
PROVIDERS: ATTEND Internal Medicine Endocrinology, Diabetes & Metabolism
DX: E05.90 Thyrotoxicosis, unspecified without thyrotoxic crisis or storm (principal)
CPT/HCPCS: 36415; 83520; 84439; 84443; 84480; 86376

== ENCOUNTER → 2018-08-09 | Outpatient (CLI) | payer OTHER ==
[2018-07-18 22:50] VITALS: BP 107/82
--- NOTE | 2018-08-09 17:19 | KCIC ---
BILATERAL SCREENING MAMMOGRAM History: Routine screening. Patient notes 200 pound weight loss. Comparison: None available, prior mammogram 2007. Interpreted as new baseline examination. Technique: Routine bilateral digital mammogram views were obtained. Findings: Breast Tissue Density C : The breasts are heterogeneously dense, which may obscure small masses. A few bilateral benign breast calcifications are noted. There appear to be multiple masses in the right and left breast. Dominant mass is suggested in the upper outer left breast at anterior depth. There are suspicious microcalcifications or architectural distortion. IMPRESSION: Dominant mass in the upper outer left breast at anterior depth. Recommend further evaluation with ultrasound. BI-RADS Category 0: Incomplete: Need additional imaging evaluation. The images were reviewed with computer aided detection. Patient information is entered into the reminder system with a target due date for the next screening mammogram. Mammography is the most sensitive method for finding small breast cancers, but it does not detect them all and is not a substitute for careful clinical examination. A negative mammogram does not negate a clinically suspicious finding and should not result in delay in biopsying a clinically suspicious abnormality. "Our facility is accredited by the [employer] Mammography Program." Electronically signed by: Phillip Knapp MD (08/09/2018 5:16 PM) [id number]
== END | disposition home or self-care (01) ==
LOC: KCIC MAMMO 10:40
PROVIDERS: ATTEND Registered Nurse
DX: Z12.31 Encounter for screening mammogram for malignant neoplasm of breast (principal); N63.21 Unspecified lump in the left breast, upper outer quadrant; R92.1 Mammographic calcification found on diagnostic imaging of breast
CPT/HCPCS: 77067

== ENCOUNTER 2018-08-16 10:26 | Emergency (ER) | payer OTHER ==
[~2018-08-16] VITALS: Ht 175.3 cm; Wt 58.1 kg
[~2018-08-16 10:26] MED LIST changes: -CEPH-264 PO; -DOXY25TA42 PO; -HUM100VI5 SQ; -INSU100I32 SQ; -LOVA10TA PO; -MIDO10TA PO
[2018-08-16 10:52] VITALS: BP 144/80
--- NOTE | 2018-08-16 11:30 | PHYS DOC ---
Past Medical History Past Medical History: Arthritis, Diabetes-Type II, High Cholesterol, Hypo tension, MRSA Additional Past Medical Histor: MRSA Past Surgical History: Other Additional Past Surgical Histo: R LEG I&D,L FOOT SURG Alcohol Use: None Drug Use: None Adult General Chief Complaint Chief Complaint: ITCHING HPI HPI Patient is a 58 year old F who presents with itching. Pt has been itching for 1 month. She has also been in and out of the hospital for low blood pressure and possible Addisons dz. She saw an seat nailer at [facility] a few days ago and is undergoing extensive workup for addisons.She took hydroxyzine for her itching which helped but made her very sleepy. She has otherwise felt ok. No issues with low BP at home. No vomiting/diarrhea/cp/sob/fever. Review of Systems Review of Systems Constitutional: Denies fever or chills Eyes: Denies change in visual acuity, redness, or eye pain HENT: Denies nasal congestion or sore throat Respiratory: Denies cough or shortness of breath Cardiovascular: No additional information not addressed in HPI GI: Denies abdominal pain, nausea, vomiting, bloody stools or diarrhea : Denies dysuria or hematuria Musculoskeletal: Denies back pain or joint pain Integument: Denies rash or skin lesions Neurologic: Denies headache, focal weakness or sensory changes Endocrine: Denies polyuria or polydipsia All other systems were reviewed and found to be within normal limits, except as documented in this note. Allergies Allergies Allergies Coded Allergies Type Severity Reaction Last Updated Verified hydroxyzine Allergy Severe DIZZINESS, "I FEEL LIKE IM DRUNK" 08/16/18 Yes raspberry Allergy Severe CHOKING SENSATION IN THROAT 10/25/15 Yes tramadol Allergy Severe VOMITING 08/16/18 Yes amoxicillin Allergy Intermediate 10/13/17 Yes aspirin Allergy Intermediate 10/13/17 Yes codeine Allergy Intermediate 10/13/17 Yes ibuprofen Allergy Intermediate 10/13/17 Yes morphine Allergy Intermediate 10/13/17 Yes Physical Exam Physical Exam Constitutional: Well developed, well nourished, no acute distress, non-toxic appearance. HENT: Normocephalic, atraumatic, bilateral external ears normal, oropharynx moist, no oral exudates, nose normal. Eyes: PERRLA, EOMI, conjunctiva normal, no discharge. Neck: Normal range of motion, no tenderness, supple, no stridor. Cardiovascular:Heart rate regular rhythm, no murmur Lungs & Thorax: Bilateral breath sounds clear to auscultation Abdomen: Bowel sounds normal, soft, no tenderness, no masses, no pulsatile masses. Skin: Warm, dry, no erythema, no rash. Lesions RUE, RLE chronic per pt. Back: No tenderness, no CVA tenderness. Extremities: No tenderness, no cyanosis, no clubbing, ROM intact, no edema. Neurologic: Alert and oriented X 3, normal motor function, normal sensory function, no focal deficits noted. Psychologic: Affect normal, judgement normal, mood normal. Current Patient Data Vital Signs Vital Signs Date Time Temp Pulse Resp B/P (MAP) Pulse Ox O2 Delivery O2 Flow Rate FiO2 08/16/18 10:52 97.4 87 16 144/80 (101) 100 Room Air 97.4 EKG EKG [] Radiology/Procedures Radiology/Procedures [] Course & Med Decision Making Course & Med Decision Making Pertinent Labs and Imaging studies reviewed. (See chart for details) 58 y/o F with h/o DM, currently being worked up for Addisons, presents for itchi ng all over her body for 1 month. She has no rash, does have a few chronic lesions which she attributes to diabetes. She is otherwise nontoxic and well appearing. She says the hydroxizine helped but it made her too sleepy. Will try doxylamine. Follow up with PMD in 2 days. Dragon Disclaimer Dragon Disclaimer This electronic medical record was generated, in whole or in part, using a voice recognition dictation system. Departure Departure Impression: Primary Impression: Itching Disposition: 01 HOME, SELF-CARE Referrals: ANN KIRK (PCP) Patient Instructions: Itching-Brief Scripts Doxylamine Succinate (SLEEP AID) 25 Mg Tablet 25 MG PO QHS PRN for ITCHING for 7 Days, #30 TAB Prov: VERNA PARDO MD 08/16/18 VERNA PARDO MD Aug 16, 2018 11:30
[2018-08-16] MEDS ORDERED: DOXY25TA42 PO (11:33)
== END 2018-08-16 11:51 | disposition home or self-care (01) ==
LOC: ER 10:26
DX: L29.8 Other pruritus (principal); L98.8 Other specified disorders of the skin and subcutaneous tissue; E11.9 Type 2 diabetes mellitus without complications; E78.00 Pure hypercholesterolemia, unspecified; I10 Essential (primary) hypertension; Z86.14 Personal history of Methicillin resistant Staphylococcus aureus infection; Z88.5 Allergy status to narcotic agent; Z88.1 Allergy status to other antibiotic agents; Z88.6 Allergy status to analgesic agent; Z88.8 Allergy status to other drugs, medicaments and biological substances; Z91.018 Allergy to other foods
CPT/HCPCS: 99282

== ENCOUNTER → 2018-08-18 | Outpatient (CLI) | payer OTHER ==
[2018-08-16 10:52] VITALS: BP 144/80
[~2018-08-18] MED LIST changes: +CEPH-264 PO; +DOXY25TA42 PO; +HUM100VI5 SQ; +INSU100I32 SQ; +LOVA10TA PO; +MIDO10TA PO
--- NOTE | 2018-08-18 13:32 | KCIC ---
Left breast ultrasound: Reason for examination: Dominant mass in the upper outer quadrant of the left breast anteriorly on screening exam. Ultrasound examination of the left breast was performed in the area of mammographic concern and at the left axilla. At the 1:00 position 6 cm from the nipple, there is a hypoechoic lesion measuring 2.5 cm in greatest dimension which shows some posterior acoustic shadowing and vascular flow. Malignancy cannot be excluded and biopsy is recommended. In the 2:00 position 1 cm from the nipple, there is an additional hypoechoic lesion with vascular flow measuring 1.6 cm in greatest dimension showing some posterior acoustic shadowing. Malignancy cannot be excluded and biopsy is recommended. No abnormal appearing lymph nodes are seen in the axilla. IMPRESSION: Nodular lesions at the 1:00 position 6 cm from the nipple measuring 2.5 cm in greatest dimension and at the 2:00 position 1 cm from the nipple measuring 1.6 cm in greatest dimension. Malignancies cannot be excluded and further evaluation with ultrasound guided biopsies is recommended. BI-RADS Category 4: Suspicious. These findings were discussed with the patient and the medical data analyst, Leny, for the nurse practitioner, Joanie Naylor, was notified about these findings at 1326 on 08/18/2018. "Our facility is accredited by the [employer] Mammography Program." This patient's information has been entered into a reminder system for the patient to be notified with the results of her examination and a target date for the next mammogram. Electronically signed by: Verona Perales MD (08/18/2018 1:29 PM) [id number]
== END | disposition home or self-care (01) ==
LOC: KCIC US 12:37
PROVIDERS: ATTEND Registered Nurse
DX: N64.89 Other specified disorders of breast (principal)
CPT/HCPCS: 76641

== ENCOUNTER 2018-08-23 17:10 | Inpatient (IN) | payer OTHER ==
[~2018-08-23] VITALS: Ht 175.3 cm; Wt 63.5 kg
[2018-08-23 17:05] VITALS: BP 174/96
[~2018-08-23 17:10] MED LIST changes: -CEPH-264 PO; -HUM100VI5 SQ; -INSU100I32 SQ; -LOVA10TA PO; -MIDO10TA PO
[2018-08-23 19:30] VITALS: BP 152/37
[2018-08-23] MEDS ORDERED: DEXTROSE 50% 25 GM / 50ML DISP.SYRIN. IV PRN (20:30)
[2018-08-23 20:58] LABS: BILIRUBIN,URINE NEGATIVE (NEG); CLARITY,URINE CLEAR; COLOR,URINE YELLOW; NITRITE,URINE NEGATIVE (NEG); PH,URINE 5.5; PROTEIN,URINE 30 mg/dL (NEG-TRACE); UROBILINOGEN,URINE 0.2 mg/dL (0.2 mg/dL)
[2018-08-23 21:04] LABS: BARBITURATES NEG (NEG); BENZODIAZEPINES NEG (NEG); CANNABINOIDS NEG (NEG); COCAINE NEG (NEG); METHADONE NEG (NEG); OPIATES NEG (NEG); PHENCYCLIDINE NEG (NEG)
[2018-08-23 21:05] LABS: AMPHETAMINE/METHAMPHETAMINE NEG (NEG)
[2018-08-23 21:06] LABS: BACTERIA,URINE FEW /HPF (0-FEW); SQUAMOUS EPITHELIAL CELL,UR FEW /LPF
[2018-08-23] MEDS ORDERED: HUM100VI5 SQ ×2 (21:44→21:46)
[2018-08-23] MEDS ORDERED: LOVA10TA PO (21:44)
--- NOTE | 2018-08-23 22:12 | PDOC1 ---
History and Physical Date of Admission Date of Admission DATE: 08/23/18 TIME: 22:06 Identification/Chief Complaint Chief Complaint weakness, dizzy Source Source: Chart review, Patient History of Present Illness History of Present Illness I was Called by Roland Flores from [facility] as Rebecca was in his clinic, and her blood sugar was > 600 and she felt dizzy and like she was going to pass out. She describes that her BP is 216/116 sometimes in the AM, and that she doesn't take her fludro if her BP is that high, but it has been low at times and she feels dizzy and weak almost all the time. She has leg wounds, multiple that she reports just wont heal and have been present for some time. she has recent endo workup for addisons, but did not mention her thyroid until I saw borisazole on her med list, noted weakness, no pain Past Medical History Cardiovascular: HTN, Syncope, Hyperlipidemia Pulmonary: COPD CENTRAL NERVOUS SYSTEM: Periperal neuropathy, TIA Psych: Anxiety, Depression Musculoskeletal: Osteoarthritis, Other Infectious disease: Other Renal/: UTI, Urinary Incontinence Endocrine: Diabetes Past Surgical History Past Surgical History: Other Family History Family History: Diabetes Social History Smoke: No ALCOHOL: none Drugs: None Current Medications Current Medications Current Medications Insulin Human Lispro (HumaLOG) 0-9 UNITS TIDWMEALS SQ ; Start 08/24/18 at 08:00 Dextrose (Dextrose 50%-Water Syringe) 12.5 gm PRN Q15MIN PRN IV SEE COMMENTS; Start 08/23/18 at 20:30 Fludrocortisone Acetate (Florinef) 0.1 mg DAILY PO ; Start 08/24/18 at 09:00 Gabapentin (Neurontin) 600 mg HS PO ; Start 08/23/18 at 22:00 Amitriptyline HCl (Elavil) 100 mg QHS PO ; Start 08/23/18 at 22:00 Insulin Human Isoph/Insulin Regular (HumuLIN 70/30) 15 units QHS SQ ; Start 08/23/18 at 22:00 Insulin Human Isoph/Insulin Regular (HumuLIN 70/30) 45 units DAILYWBKFT SQ ; Start 08/24/18 at 08:00 Atorvastatin Calcium (Lipitor) 5 mg QHS PO ; Start 08/23/18 at 22:00 Methimazole (Tapazole) 5 mg DAILY08 PO ; Start 08/24/18 at 08:00 Active Scripts Active Fludrocortisone Acetate 0.1 Mg Tablet 0.1 Mg PO DAILY Reported Novolin 70-30 100 Unit/Ml Vial (Hum Insulin Nph/Reg Insulin Hm) 100 Unit/1 Ml Vial 15 Unit SQ HS Novolin 70-30 100 Unit/Ml Vial (Hum Insulin Nph/Reg Insulin Hm) 100 Unit/1 Ml Vial 45 Units SQ DAILY Lovastatin 10 Mg Tablet 10 Mg PO HS Methimazole 5 Mg Tablet 5 Mg PO DAILY08 Gabapentin (Gabapentin) 300 Mg Capsule 600 Mg PO HS Amitriptyline Hcl 100 Mg Tablet 1 Tab PO QHS Allergies Allergies: Coded Allergies: hydroxyzine (Verified Allergy, Severe, DIZZINESS, "I FEEL LIKE IM DRUNK", 08/16/18) raspberry (Verified Allergy, Severe, CHOKING SENSATION IN THROAT, 10/25/15) tramadol (Verified Allergy, Severe, VOMITING, 08/16/18) amoxicillin (Verified Allergy, Intermediate, 10/13/17) aspirin (Verified Allergy, Intermediate, 10/13/17) codeine (Verified Allergy, Intermediate, 10/13/17) ibuprofen (Verified Allergy, Intermediate, 10/13/17) morphine (Verified Allergy, Intermediate, 10/13/17) ROS General: YES: Chills, Fatigue, Malaise PSYCHOLOGICAL ROS: YES: Irritablity, Sleep disturbances Eyes: No Blurry vision, No Decreased vision, No Double vision, No Dry eyes, No Excessive tearing, No Eye Pain, No Itchy Eyes, No Loss of vision, No Photophobia, No Scotomata, No Uses contacts, No Uses glasses, No Other HEENT: No: Heacaches, Visual Changes, Hearing change, Nasal congestion, Nasal discharge, Oral lesions, Sinus pain, Sore Throat, Epistaxis, Sneezing, Snoring, Tinnitus, Vertigo, Vocal changes, Other Respiratory: No: Cough, Hemoptysis, Orthopnea, Pleuritic Pain, Shortness of breath, SOB with excertion, Sputum Changes, Stridor, Tachypnea, Wheezing, Other Cardiovascular: No Chest Pain, No Palpitations, No Orthopnea, No Paroxysmal Noc. Dyspnea, No Edema, No Lt Headedness, No Other Gastrointestinal: Yes Nausea Genitourinary: No Dysuria, No Frequency, No Incontinence, No Hematuria, No Retention, No Discharge, No Urgency, No Pain, No Flank Pain, No Other, No , No , No , No , No , No , No Musculoskeletal: Yes Joint Pain, Yes Joint Stiffness Neurological: Yes Gait Disturbance, Yes Impaired Coord/balance, Yes Weakness; No Behavorial Changes, No Bowel/Bladder ControlChng, No Confusion, No Dizziness, No Headaches, No Memory Loss, No Numbness/Tingling, No Seizures, No Speech Problems, No Tremors, No Visual Changes, No Other Skin: No Dry Skin, No Eczema, No Hair Changes, No Lumps, No Mole Changes, No Mottling, No Nail Changes, No Pruritus, No Rash, No Skin Lesion Changes, No Other, No Acne Physical Exam General: Alert, Cooperative, No acute distress HEENT: Atraumatic, PERRLA, Mucous membr. moist/pink Lungs: Clear to auscultation, Normal air movement Heart: no gallops, no murmurs Abdomen: Normal bowel sounds, Soft Rectal Exam: not examined Extremities: No cyanosis, Other Skin: No rashes, Other (freq. large ulcerations to her legs appear about the same age, ) Neuro: Normal speech, Sensation intact Psych/Mental Status: Mental status NL, Mood NL Vitals Vitals Vital Signs Date Time Temp Pulse Resp B/P (MAP) Pulse Ox O2 Delivery O2 Flow Rate FiO2 08/23/18 19:30 98.1 68 18 152/37 (75) 94 Room Air 98.1 Labs Labs Laboratory Tests Test 08/23/18 20:20 08/23/18 21:43 Urine Collection Type Unknown Urine Color Yellow Urine Clarity Clear Urine pH 5.5 Urine Specific [place] >=1.030 Urine Protein 30 mg/dL (NEG-TRACE) Urine Glucose (UA) >=1000 mg/dL (NEG) Urine Ketones (Stick) Negative mg/dL (NEG) Urine Blood Trace (NEG) Urine Nitrite Negative (NEG) Urine Bilirubin Negative (NEG) Urine Urobilinogen Dipstick 0.2 mg/dL (0.2 mg/dL) Urine Leukocyte Esterase Negative (NEG) Urine RBC 1-2 /HPF (0-2) Urine WBC 1-4 /HPF (0-4) Urine Squamous Epithelial Cells Few /LPF Urine Bacteria Few /HPF (0-FEW) Urine Opiates Screen Neg (NEG) Urine Methadone Screen Neg (NEG) Urine Barbiturates Neg (NEG) Urine Phencyclidine Screen Neg (NEG) Urine Amphetamine/Methamphetamine Neg (NEG) Urine Benzodiazepines Screen Neg (NEG) Urine Cocaine Screen Neg (NEG) Urine Cannabinoids Screen Neg (NEG) Urine Ethyl Alcohol Neg (NEG) Glucose (Fingerstick) 234 mg/dL (70-99) Laboratory Tests Test 08/23/18 20:20 08/23/18 21:43 Urine Collection Type Unknown Urine Color Yellow Urine Clarity Clear Urine pH 5.5 Urine Specific [place] >=1.030 Urine Protein 30 mg/dL (NEG-TRACE) Urine Glucose (UA) >=1000 mg/dL (NEG) Urine Ketones (Stick) Negative mg/dL (NEG) Urine Blood Trace (NEG) Urine Nitrite Negative (NEG) Urine Bilirubin Negative (NEG) Urine Urobilinogen Dipstick 0.2 mg/dL (0.2 mg/dL) Urine Leukocyte Esterase Negative (NEG) Urine RBC 1-2 /HPF (0-2) Urine WBC 1-4 /HPF (0-4) Urine Squamous Epithelial Cells Few /LPF Urine Bacteria Few /HPF (0-FEW) Urine Opiates Screen Neg (NEG) Urine Methadone Screen Neg (NEG) Urine Barbiturates Neg (NEG) Urine Phencyclidine Screen Neg (NEG) Urine Amphetamine/Methamphetamine Neg (NEG) Urine Benzodiazepines Screen Neg (NEG) Urine Cocaine Screen Neg (NEG) Urine Cannabinoids Screen Neg (NEG) Urine Ethyl Alcohol Neg (NEG) Glucose (Fingerstick) 234 mg/dL (70-99) VTE Prophylaxis Ordered VTE Prophylaxis Devices: No VTE Pharmacological Prophylaxi: Yes Assessment/Plan Assessment/Plan hyperosmolar, not ketotic blood glucose > 600 at [facility] office orthostatic hypotension Dm1, on , poor control hyperthyroid has been worked up for addisons disease, could get records from [facility]. patient described that she has had bad experiences at [facility] and [employer], ? not compliant or other PAT MCCOY MD Aug 23, 2018 22:12
[2018-08-23] MEDS: ATORVASTATIN CALCIUM 10 MG TABLET. PO SCH (22:19)
[2018-08-23] MEDS: AMITRIPTYLINE HCL 25 MG TABLET. PO SCH (22:19)
[2018-08-23] MEDS: GABAPENTIN 300 MG CAPSULE. PO SCH (22:19)
[2018-08-23] MEDS: INSULIN NPH/REG INSULIN 70/30 300 UNITS/3 ML INSULN.PEN. SQ SCH (22:24)
[2018-08-23 23:25] VITALS: BP 95/63
[2018-08-23 23:26] VITALS: BP 92/55
[2018-08-23 23:27] VITALS: BP 88/47
[2018-08-24] VITALS (10 sets, daily range): BP systolic 74–143; BP diastolic 44–87
[2018-08-24 04:46] LABS: BASO % 1 % (0-3); EOS # 0.3 x10^3/uL (0.0-0.7); EOS % 5 % (0-3); HEMATOCRIT 32.9 % (36.0-47.0); HEMOGLOBIN 10.8 g/dL (12.0-15.5); LYMPH # 2.9 x10^3/uL (1.0-4.8); LYMPH % 48 % (24-48); MEAN CORPUSCULAR HEMOGLOBIN 27 pg (25-35); MEAN CORPUSCULAR HGB CONC 33 g/dL (31-37); MEAN CORPUSCULAR VOLUME 82 fL (79-100); MONO # 0.5 x10^3/uL (0.0-1.1); MONO % 8 % (0-9); NEUT # 2.4 x10^3uL (1.8-7.7); NEUT % 39 % (31-73); PLATELET COUNT 242 x10^3/uL (140-400); RED CELL DISTRIBUTION WIDTH 12.8 % (11.5-14.5); WHITE BLOOD COUNT 6.1 x10^3/uL (4.0-11.0)
[2018-08-24 05:38] LABS: ALBUMIN 2.8 g/dL (3.4-5.0); ALBUMIN/GLOBULIN RATIO 0.9 (1.0-1.7); CALCIUM 9.2 mg/dL (8.5-10.1); GFR 57.4; POTASSIUM 3.6 mmol/L (3.5-5.1); TOTAL BILIRUBIN 0.2 mg/dL (0.2-1.0); TOTAL PROTEIN 5.9 g/dL (6.4-8.2)
[2018-08-24 06:02] LABS: FREE T4 1.06 ng/dL (0.76-1.46)
[2018-08-24] MEDS: INSULIN LISPRO 300 UNITS/3 ML INSULN.PEN. SQ SCH ×3 (07:38→17:58)
[2018-08-24] MEDS ORDERED: methIMAzole 10 MG TABLET PO SCH (08:00)
[2018-08-24] MEDS: methIMAzole 10 MG TABLET PO SCH ×2 (09:02→21:12)
[2018-08-24] MEDS: FLUDROCORTISONE 0.1 MG TABLET PO SCH (09:02)
[2018-08-24] MEDS: INSULIN NPH/REG INSULIN 70/30 300 UNITS/3 ML INSULN.PEN. SQ SCH ×2 (09:50→21:21)
--- NOTE | 2018-08-24 10:38 | PDOC2 ---
CHIDI HERRERA SALVAGE GRINDER 08/24/18 1038: CARDIAC CONSULT DATE OF CONSULT Date of Consult DATE: 08/24/18 TIME: 10:27 REASON FOR CONSULT Reason for Consult: Orthostatic hypotension REFERRING PHYSICIAN Referring Physician: Prakash SOURCE Source: Chart review, Patient HISTORY OF PRESENT ILLNESS HISTORY OF PRESENT ILLNESS This is a pleasant 58 yo female admitted for complains of weakness and lightheadedness. She does have chronic nausea but in the last 4 days she has been having vomiting spells and blaming it on doxepin as she just started on this. She also had at least 10 bouts of diarrhea the other day. Her appetite has been off and her mobility has been limited due to lightheadedness, vertigo. She has been having multiple aborted falls. No recent traumatic injuries. She follows cribbing setter and her Wilkinson testing results are still pending. Denies any palpitations but also has been complaining of possible pleurisy as she was told isolated to her left back ribcage reproducible with palpation. No rash, no fever and no prior hx of shingles. Denies any recent passing out. No v isual deficit or unilateral weakness. No known hx of gastroparesis. Tilt table in the past ruled out any associated neurocardiogenic syncope. Positive for orthostasis and still dizzy when getting up. PAST MEDICAL HISTORY Cardiovascular: Hyperlipidemia, Other (orthostasis) CENTRAL NERVOUS SYSTEM: CVA, Periperal neuropathy GI: No pertinent hx Heme/Onc: No pertinent hx Hepatobiliary: No pertinent hx Psych: No pertinent hx Musculoskeletal: Osteoarthritis Rheumatologic: No pertinent hx Infectious disease: Other (MRSA) ENT: No pertinent hx Renal/: No pertinent hx Endocrine: Diabetes (1), Hyperthyroidism PAST SURGICAL HISTORY Past Surgical History: Other (foot surgery; left femoral surgery) FAMILY HISTORY Family History: Diabetes SOCIAL HISTORY Smoke: No ALCOHOL: none Drugs: None CURRENT MEDICATIONS CURRENT MEDICATIONS Current Medications Medications (Trade) Dose Ordered Sig/[place] Route PRN Reason Start Time Stop Time Status Last Admin Dose Admin Fludrocortisone Acetate (Florinef) 0.1 mg DAILY PO 08/24/18 09:00 08/24/18 09:02 Gabapentin (Neurontin) 600 mg HS PO 08/23/18 22:00 08/23/18 22:19 Amitriptyline HCl (Elavil) 100 mg QHS PO 08/23/18 22:00 08/23/18 22:19 Insulin Human Isoph/Insulin Regular (HumuLIN 70/30) 15 units QHS SQ 08/23/18 22:00 08/23/18 22:24 Insulin Human Isoph/Insulin Regular (HumuLIN 70/30) 45 units DAILYWBKFT SQ 08/24/18 08:00 08/24/18 09:50 Atorvastatin Calcium (Lipitor) 5 mg QHS PO 08/23/18 22:00 08/23/18 22:19 Methimazole (Tapazole) 5 mg BID PO 08/24/18 09:00 08/24/18 09:02 ALLERGIES ALLERGIES: Coded Allergies: hydroxyzine (Verified Allergy, Severe, DIZZINESS, "I FEEL LIKE IM DRUNK", 08/16/18) raspberry (Verified Allergy, Severe, CHOKING SENSATION IN THROAT, 10/25/15) tramadol (Verified Allergy, Severe, VOMITING, 08/16/18) amoxicillin (Verified Allergy, Intermediate, 10/13/17) aspirin (Verified Allergy, Intermediate, 10/13/17) codeine (Verified Allergy, Intermediate, 10/13/17) ibuprofen (Verified Allergy, Intermediate, 10/13/17) morphine (Verified Allergy, Intermediate, 10/13/17) ROS Review of System 14 point ROS evaluated with pertinent positives noted per HPI PHYSICAL EXAM General: Alert, Oriented X3, Cooperative, No acute distress HEENT: Atraumatic, Mucous membr. moist/pink Lungs: Clear to auscultation, Normal air movement Heart: Regular rate (SR), Normal S1, Normal S2, No murmurs Abdomen: Soft, No tenderness Extremities: No cyanosis, No edema Skin: No breakdown, No significant lesion Neuro: Normal speech, Sensation intact Psych/Mental Status: Mental status NL, Mood NL MUSCULOSKELETAL: Osteoarthritic changes both hands VITALS VITALS Vital Signs Date Time Temp Pulse Resp B/P (MAP) Pulse Ox O2 Delivery O2 Flow Rate FiO2 08/24/18 07:00 97.5 80 16 81/54 (63) 97 Room Air 97.5 LABS Lab: Laboratory Tests Test 08/23/18 20:20 08/23/18 21:43 08/24/18 04:05 08/24/18 07:29 Urine Collection Type Unknown Urine Color Yellow Urine Clarity Clear Urine pH 5.5 Urine Specific [place] >=1.030 Urine Protein 30 mg/dL (NEG-TRACE) Urine Glucose (UA) >=1000 mg/dL (NEG) Urine Ketones (Stick) Negative mg/dL (NEG) Urine Blood Trace (NEG) Urine Nitrite Negative (NEG) Urine Bilirubin Negative (NEG) Urine Urobilinogen Dipstick 0.2 mg/dL (0.2 mg/dL) Urine Leukocyte Esterase Negative (NEG) Urine RBC 1-2 /HPF (0-2) Urine WBC 1-4 /HPF (0-4) Urine Squamous Epithelial Cells Few /LPF Urine Bacteria Few /HPF (0-FEW) Urine Opiates Screen Neg (NEG) Urine Methadone Screen Neg (NEG) Urine Barbiturates Neg (NEG) Urine Phencyclidine Screen Neg (NEG) Urine Amphetamine/Methamphetamine Neg (NEG) Urine Benzodiazepines Screen Neg (NEG) Urine Cocaine Screen Neg (NEG) Urine Cannabinoids Screen Neg (NEG) Urine Ethyl Alcohol Neg (NEG) Glucose (Fingerstick) 234 mg/dL (70-99) 78 mg/dL (70-99) White Blood Count 6.1 x10^3/uL (4.0-11.0) Red Blood Count 4.00 x10^6/uL (3.50-5.40) Hemoglobin 10.8 g/dL (12.0-15.5) Hematocrit 32.9 % (36.0-47.0) Mean Corpuscular Volume 82 fL (79-100) Mean Corpuscular Hemoglobin 27 pg (25-35) Mean Corpuscular Hemoglobin Concent 33 g/dL (31-37) Red Cell Distribution Width 12.8 % (11.5-14.5) Platelet Count 242 x10^3/uL (140-400) Neutrophils (%) (Auto) 39 % (31-73) Lymphocytes (%) (Auto) 48 % (24-48) Monocytes (%) (Auto) 8 % (0-9) Eosinophils (%) (Auto) 5 % (0-3) Basophils (%) (Auto) 1 % (0-3) Neutrophils # (Auto) 2.4 x10^3uL (1.8-7.7) Lymphocytes # (Auto) 2.9 x10^3/uL (1.0-4.8) Monocytes # (Auto) 0.5 x10^3/uL (0.0-1.1) Eosinophils # (Auto) 0.3 x10^3/uL (0.0-0.7) Basophils # (Auto) 0.0 x10^3/uL (0.0-0.2) Sodium Level 143 mmol/L (136-145) Potassium Level 3.6 mmol/L (3.5-5.1) Chloride Level 104 mmol/L (98-107) Carbon Dioxide Level 32 mmol/L (21-32) Anion Gap 7 (6-14) Blood Urea Nitrogen 32 mg/dL (7-20) Creatinine 1.0 mg/dL (0.6-1.0) Estimated GFR (Cockcroft-Gault) 57.4 BUN/Creatinine Ratio 32 (6-20) Glucose Level 74 mg/dL (70-99) Calcium Level 9.2 mg/dL (8.5-10.1) Total Bilirubin 0.2 mg/dL (0.2-1.0) Aspartate Amino Transf (AST/SGOT) 17 U/L (15-37) Alanine Aminotransferase (ALT/SGPT) 17 U/L (14-59) Alkaline Phosphatase 93 U/L (46-116) Total Protein 5.9 g/dL (6.4-8.2) Albumin 2.8 g/dL (3.4-5.0) Albumin/Globulin Ratio 0.9 (1.0-1.7) Thyroid Stimulating Hormone (TSH) 0.807 uIU/mL (0.358-3.74) Free Thyroxine 1.06 ng/dL (0.76-1.46) Free Triiodothyronine (T3) pg/mL 2.19 pg/mL (2.18-3.98) Test 08/24/18 09:46 Glucose (Fingerstick) 268 mg/dL (70-99) ECHOCARDIOGRAM ECHOCARDIOGRAM <Conclusion> The left ventricular systolic function is normal and the ejection fraction is within normal range. EF 55% There is normal LV segmental wall motion. DATE: 11/05/17 1600 ASSESSMENT/PLAN ASSESSMENT/PLAN 1. Presyncope/Orthostasis/vertigo: suspect autonomic dysfunction. on home florinef. Volume depletion with vomiting and diarrhea contributing. Not r/t to arrhythmias 2. Vomiting/diarrhea: see HPI 3. Possible intercostitis: defer to PCP 4. DM1/DPN 5. HLP 6. Hyperthyroidism: TSH/t3/t4 on goal with methimazole 7. Right breast mass: recent noted via US 08/18 as an outpt suspicious of CA. oupt Bx is scheduled per pt 8. Suspect CKD3 9. Hx of multiple aborted falls Recommendations 1. TTE 2. Start mechanical compressions. Continue florinef. then recheck orthostatic readings 3. Start IV fluids, will consider midodrine. 4. Wilkinson testing recently competed with outpt cribbing setter. Final result pending 5. May have gastroparesis as well, will need GI referral. BRIGIDO BARNARD MD 08/24/18 2197: CARDIAC CONSULT ASSESSMENT/PLAN ASSESSMENT/PLAN Patient seen and examined. Agree with CAUSTIC PUMP OPERATOR's assessment and plan. Near syncope most probably secondary to combination of autonomic dysfunction and dehydration Orthostatics positive 2-D echo showed normal LV function Continue intravenous fluids and Florinef If she continues to be orthostatic, we will consider changing Florinef to Mid odrine Thank you for your consultation CHIDI HERRERA APRN August 24, 2018 10:38 BRIGIDO BARNARD MD August 24, 2018 17:19
[2018-08-24 10:57] LABS: CHOLESTEROL/HDL RATIO 3.3
--- NOTE | 2018-08-24 11:28 | PDOC ---
PROGRESS NOTES Chief Complaint Chief Complaint Hyperosmolar Hyperglycemic Nonketotic State (Blood glucose >600) Large Leg ulceration Hyperthyroidism HTN, Syncope, Hyperlipidemia COPD Periperal neuropathy, TIA Anxiety, Depression Osteoarthritis UTI, Urinary Incontinence Diabetes History of Present Illness History of Present Illness Patient seen and examined. Patient resting comfortable with no acute changes. Discussed with Navid Vitals Vitals Vital Signs Date Time Temp Pulse Resp B/P (MAP) Pulse Ox O2 Delivery O2 Flow Rate FiO2 08/24/18 10:50 Room Air 08/24/18 10:48 95 08/24/18 10:45 97.8 18 94 97.8 Physical Exam General: Alert, Cooperative, No acute distress Lungs: Clear Abdomen: Normal bowel sounds, Soft Extremities: No cyanosis, Other Skin: No rashes, Other (freq. large ulcerations to her legs appear about the same age, ) Labs LABS Laboratory Tests Test 08/23/18 20:20 08/23/18 21:43 08/24/18 04:05 08/24/18 07:29 Urine Collection Type Unknown Urine Color Yellow Urine Clarity Clear Urine pH 5.5 Urine Specific [place] >=1.030 Urine Protein 30 mg/dL (NEG-TRACE) Urine Glucose (UA) >=1000 mg/dL (NEG) Urine Ketones (Stick) Negative mg/dL (NEG) Urine Blood Trace (NEG) Urine Nitrite Negative (NEG) Urine Bilirubin Negative (NEG) Urine Urobilinogen Dipstick 0.2 mg/dL (0.2 mg/dL) Urine Leukocyte Esterase Negative (NEG) Urine RBC 1-2 /HPF (0-2) Urine WBC 1-4 /HPF (0-4) Urine Squamous Epithelial Cells Few /LPF Urine Bacteria Few /HPF (0-FEW) Urine Opiates Screen Neg (NEG) Urine Methadone Screen Neg (NEG) Urine Barbiturates Neg (NEG) Urine Phencyclidine Screen Neg (NEG) Urine Amphetamine/Methamphetamine Neg (NEG) Urine Benzodiazepines Screen Neg (NEG) Urine Cocaine Screen Neg (NEG) Urine Cannabinoids Screen Neg (NEG) Urine Ethyl Alcohol Neg (NEG) Glucose (Fingerstick) 234 mg/dL (70-99) 78 mg/dL (70-99) White Blood Count 6.1 x10^3/uL (4.0-11.0) Red Blood Count 4.00 x10^6/uL (3.50-5.40) Hemoglobin 10.8 g/dL (12.0-15.5) Hematocrit 32.9 % (36.0-47.0) Mean Corpuscular Volume 82 fL (79-100) Mean Corpuscular Hemoglobin 27 pg (25-35) Mean Corpuscular Hemoglobin Concent 33 g/dL (31-37) Red Cell Distribution Width 12.8 % (11.5-14.5) Platelet Count 242 x10^3/uL (140-400) Neutrophils (%) (Auto) 39 % (31-73) Lymphocytes (%) (Auto) 48 % (24-48) Monocytes (%) (Auto) 8 % (0-9) Eosinophils (%) (Auto) 5 % (0-3) Basophils (%) (Auto) 1 % (0-3) Neutrophils # (Auto) 2.4 x10^3uL (1.8-7.7) Lymphocytes # (Auto) 2.9 x10^3/uL (1.0-4.8) Monocytes # (Auto) 0.5 x10^3/uL (0.0-1.1) Eosinophils # (Auto) 0.3 x10^3/uL (0.0-0.7) Basophils # (Auto) 0.0 x10^3/uL (0.0-0.2) Sodium Level 143 mmol/L (136-145) Potassium Level 3.6 mmol/L (3.5-5.1) Chloride Level 104 mmol/L (98-107) Carbon Dioxide Level 32 mmol/L (21-32) Anion Gap 7 (6-14) Blood Urea Nitrogen 32 mg/dL (7-20) Creatinine 1.0 mg/dL (0.6-1.0) Estimated GFR (Cockcroft-Gault) 57.4 BUN/Creatinine Ratio 32 (6-20) Glucose Level 74 mg/dL (70-99) Calcium Level 9.2 mg/dL (8.5-10.1) Total Bilirubin 0.2 mg/dL (0.2-1.0) Aspartate Amino Transf (AST/SGOT) 17 U/L (15-37) Alanine Aminotransferase (ALT/SGPT) 17 U/L (14-59) Alkaline Phosphatase 93 U/L (46-116) Total Protein 5.9 g/dL (6.4-8.2) Albumin 2.8 g/dL (3.4-5.0) Albumin/Globulin Ratio 0.9 (1.0-1.7) Triglycerides Level 56 mg/dL (0-150) Cholesterol Level 188 mg/dL (0-200) LDL Cholesterol, Calculated 120 mg/dL (0-100) VLDL Cholesterol, Calculated 11 mg/dL (0-40) Non-HDL Cholesterol Calculated 131 mg/dL (0-129) HDL Cholesterol 57 mg/dL (40-60) Cholesterol/HDL Ratio 3.3 Thyroid Stimulating Hormone (TSH) 0.807 uIU/mL (0.358-3.74) Free Thyroxine 1.06 ng/dL (0.76-1.46) Free Triiodothyronine (T3) pg/mL 2.19 pg/mL (2.18-3.98) Test 08/24/18 09:46 Glucose (Fingerstick) 268 mg/dL (70-99) Review of Systems Review of Systems Pt complains of leg sores Pt denies chills Assessment and Plan Assessmemt and Plan Assessment: Hyperosmolar Hyperglycemic Nonketotic State (Blood glucose >600) Large Leg ulceration Hyperthyroidism HTN, Syncope, Hyperlipidemia COPD Periperal neuropathy, TIA Anxiety, Depression Osteoarthritis UTI, Urinary Incontinence Diabetes Plan: Monitor Glycemic control Monitor BP Labs PT/OT Home meds Discharge Dispo: Pending Comment Review of Relevant I have reviewed the following items zurdo (where applicable) has been applied. Labs Laboratory Tests Test 08/23/18 20:20 08/23/18 21:43 08/24/18 04:05 08/24/18 07:29 Urine Collection Type Unknown Urine Color Yellow Urine Clarity Clear Urine pH 5.5 Urine Specific [place] >=1.030 Urine Protein 30 mg/dL (NEG-TRACE) Urine Glucose (UA) >=1000 mg/dL (NEG) Urine Ketones (Stick) Negative mg/dL (NEG) Urine Blood Trace (NEG) Urine Nitrite Negative (NEG) Urine Bilirubin Negative (NEG) Urine Urobilinogen Dipstick 0.2 mg/dL (0.2 mg/dL) Urine Leukocyte Esterase Negative (NEG) Urine RBC 1-2 /HPF (0-2) Urine WBC 1-4 /HPF (0-4) Urine Squamous Epithelial Cells Few /LPF Urine Bacteria Few /HPF (0-FEW) Urine Opiates Screen Neg (NEG) Urine Methadone Screen Neg (NEG) Urine Barbiturates Neg (NEG) Urine Phencyclidine Screen Neg (NEG) Urine Amphetamine/Methamphetamine Neg (NEG) Urine Benzodiazepines Screen Neg (NEG) Urine Cocaine Screen Neg (NEG) Urine Cannabinoids Screen Neg (NEG) Urine Ethyl Alcohol Neg (NEG) Glucose (Fingerstick) 234 mg/dL (70-99) 78 mg/dL (70-99) White Blood Count 6.1 x10^3/uL (4.0-11.0) Red Blood Count 4.00 x10^6/uL (3.50-5.40) Hemoglobin 10.8 g/dL (12.0-15.5) Hematocrit 32.9 % (36.0-47.0) Mean Corpuscular Volume 82 fL (79-100) Mean Corpuscular Hemoglobin 27 pg (25-35) Mean Corpuscular Hemoglobin Concent 33 g/dL (31-37) Red Cell Distribution Width 12.8 % (11.5-14.5) Platelet Count 242 x10^3/uL (140-400) Neutrophils (%) (Auto) 39 % (31-73) Lymphocytes (%) (Auto) 48 % (24-48) Monocytes (%) (Auto) 8 % (0-9) Eosinophils (%) (Auto) 5 % (0-3) Basophils (%) (Auto) 1 % (0-3) Neutrophils # (Auto) 2.4 x10^3uL (1.8-7.7) Lymphocytes # (Auto) 2.9 x10^3/uL (1.0-4.8) Monocytes # (Auto) 0.5 x10^3/uL (0.0-1.1) Eosinophils # (Auto) 0.3 x10^3/uL (0.0-0.7) Basophils # (Auto) 0.0 x10^3/uL (0.0-0.2) Sodium Level 143 mmol/L (136-145) Potassium Level 3.6 mmol/L (3.5-5.1) Chloride Level 104 mmol/L (98-107) Carbon Dioxide Level 32 mmol/L (21-32) Anion Gap 7 (6-14) Blood Urea Nitrogen 32 mg/dL (7-20) Creatinine 1.0 mg/dL (0.6-1.0) Estimated GFR (Cockcroft-Gault) 57.4 BUN/Creatinine Ratio 32 (6-20) Glucose Level 74 mg/dL (70-99) Calcium Level 9.2 mg/dL (8.5-10.1) Total Bilirubin 0.2 mg/dL (0.2-1.0) Aspartate Amino Transf (AST/SGOT) 17 U/L (15-37) Alanine Aminotransferase (ALT/SGPT) 17 U/L (14-59) Alkaline Phosphatase 93 U/L (46-116) Total Protein 5.9 g/dL (6.4-8.2) Albumin 2.8 g/dL (3.4-5.0) Albumin/Globulin Ratio 0.9 (1.0-1.7) Triglycerides Level 56 mg/dL (0-150) Cholesterol Level 188 mg/dL (0-200) LDL Cholesterol, Calculated 120 mg/dL (0-100) VLDL Cholesterol, Calculated 11 mg/dL (0-40) Non-HDL Cholesterol Calculated 131 mg/dL (0-129) HDL Cholesterol 57 mg/dL (40-60) Cholesterol/HDL Ratio 3.3 Thyroid Stimulating Hormone (TSH) 0.807 uIU/mL (0.358-3.74) Free Thyroxine 1.06 ng/dL (0.76-1.46) Free Triiodothyronine (T3) pg/mL 2.19 pg/mL (2.18-3.98) Test 08/24/18 09:46 Glucose (Fingerstick) 268 mg/dL (70-99) Laboratory Tests Test 08/23/18 20:20 08/23/18 21:43 08/24/18 04:05 08/24/18 07:29 Urine Collection Type Unknown Urine Color Yellow Urine Clarity Clear Urine pH 5.5 Urine Specific [place] >=1.030 Urine Protein 30 mg/dL (NEG-TRACE) Urine Glucose (UA) >=1000 mg/dL (NEG) Urine Ketones (Stick) Negative mg/dL (NEG) Urine Blood Trace (NEG) Urine Nitrite Negative (NEG) Urine Bilirubin Negative (NEG) Urine Urobilinogen Dipstick 0.2 mg/dL (0.2 mg/dL) Urine Leukocyte Esterase Negative (NEG) Urine RBC 1-2 /HPF (0-2) Urine WBC 1-4 /HPF (0-4) Urine Squamous Epithelial Cells Few /LPF Urine Bacteria Few /HPF (0-FEW) Urine Opiates Screen Neg (NEG) Urine Methadone Screen Neg (NEG) Urine Barbiturates Neg (NEG) Urine Phencyclidine Screen Neg (NEG) Urine Amphetamine/Methamphetamine Neg (NEG) Urine Benzodiazepines Screen Neg (NEG) Urine Cocaine Screen Neg (NEG) Urine Cannabinoids Screen Neg (NEG) Urine Ethyl Alcohol Neg (NEG) Glucose (Fingerstick) 234 mg/dL (70-99) 78 mg/dL (70-99) White Blood Count 6.1 x10^3/uL (4.0-11.0) Red Blood Count 4.00 x10^6/uL (3.50-5.40) Hemoglobin 10.8 g/dL (12.0-15.5) Hematocrit 32.9 % (36.0-47.0) Mean Corpuscular Volume 82 fL (79-100) Mean Corpuscular Hemoglobin 27 pg (25-35) Mean Corpuscular Hemoglobin Concent 33 g/dL (31-37) Red Cell Distribution Width 12.8 % (11.5-14.5) Platelet Count 242 x10^3/uL (140-400) Neutrophils (%) (Auto) 39 % (31-73) Lymphocytes (%) (Auto) 48 % (24-48) Monocytes (%) (Auto) 8 % (0-9) Eosinophils (%) (Auto) 5 % (0-3) Basophils (%) (Auto) 1 % (0-3) Neutrophils # (Auto) 2.4 x10^3uL (1.8-7.7) Lymphocytes # (Auto) 2.9 x10^3/uL (1.0-4.8) Monocytes # (Auto) 0.5 x10^3/uL (0.0-1.1) Eosinophils # (Auto) 0.3 x10^3/uL (0.0-0.7) Basophils # (Auto) 0.0 x10^3/uL (0.0-0.2) Sodium Level 143 mmol/L (136-145) Potassium Level 3.6 mmol/L (3.5-5.1) Chloride Level 104 mmol/L (98-107) Carbon Dioxide Level 32 mmol/L (21-32) Anion Gap 7 (6-14) Blood Urea Nitrogen 32 mg/dL (7-20) Creatinine 1.0 mg/dL (0.6-1.0) Estimated GFR (Cockcroft-Gault) 57.4 BUN/Creatinine Ratio 32 (6-20) Glucose Level 74 mg/dL (70-99) Calcium Level 9.2 mg/dL (8.5-10.1) Total Bilirubin 0.2 mg/dL (0.2-1.0) Aspartate Amino Transf (AST/SGOT) 17 U/L (15-37) Alanine Aminotransferase (ALT/SGPT) 17 U/L (14-59) Alkaline Phosphatase 93 U/L (46-116) Total Protein 5.9 g/dL (6.4-8.2) Albumin 2.8 g/dL (3.4-5.0) Albumin/Globulin Ratio 0.9 (1.0-1.7) Triglycerides Level 56 mg/dL (0-150) Cholesterol Level 188 mg/dL (0-200) LDL Cholesterol, Calculated 120 mg/dL (0-100) VLDL Cholesterol, Calculated 11 mg/dL (0-40) Non-HDL Cholesterol Calculated 131 mg/dL (0-129) HDL Cholesterol 57 mg/dL (40-60) Cholesterol/HDL Ratio 3.3 Thyroid Stimulating Hormone (TSH) 0.807 uIU/mL (0.358-3.74) Free Thyroxine 1.06 ng/dL (0.76-1.46) Free Triiodothyronine (T3) pg/mL 2.19 pg/mL (2.18-3.98) Test 08/24/18 09:46 Glucose (Fingerstick) 268 mg/dL (70-99) Medications Current Medications Insulin Human Lispro (HumaLOG) 0-9 UNITS TIDWMEALS SQ ; Start 08/24/18 at 08:00 Dextrose (Dextrose 50%-Water Syringe) 12.5 gm PRN Q15MIN PRN IV SEE COMMENTS; Start 08/23/18 at 20:30 Fludrocortisone Acetate (Florinef) 0.1 mg DAILY PO Last administered on 08/24/18at 09:02; Start 08/24/18 at 09:00 Gabapentin (Neurontin) 600 mg HS PO Last administered on 08/23/18at 22:19; Start 08/23/18 at 22:00 Amitriptyline HCl (Elavil) 100 mg QHS PO Last administered on 08/23/18at 22:19; Start 08/23/18 at 22:00 Insulin Human Isoph/Insulin Regular (HumuLIN 70/30) 15 units QHS SQ Last administered on 08/23/18at 22:24; Start 08/23/18 at 22:00 Insulin Human Isoph/Insulin Regular (HumuLIN 70/30) 45 units DAILYWBKFT SQ Last administered on 08/24/18at 09:50; Start 08/24/18 at 08:00 Atorvastatin Calcium (Lipitor) 5 mg QHS PO Last administered on 08/23/18at 22:19; Start 08/23/18 at 22:00 Methimazole (Tapazole) 5 mg DAILY08 PO ; Start 08/24/18 at 08:00; Stop 08/24/18 at 08:00; Status DC Methimazole (Tapazole) 5 mg BID PO Last administered on 08/24/18at 09:02; Start 08/24/18 at 09:00 Multivitamins (Thera M Plus) 1 tab DAILY PO ; Start 08/24/18 at 11:00 Active Scripts Active Fludrocortisone Acetate 0.1 Mg Tablet 0.1 Mg PO DAILY Reported Novolin 70-30 100 Unit/Ml Vial (Hum Insulin Nph/Reg Insulin Hm) 100 Unit/1 Ml Vial 15 Unit SQ HS Novolin 70-30 100 Unit/Ml Vial (Hum Insulin Nph/Reg Insulin Hm) 100 Unit/1 Ml Vial 45 Units SQ DAILY Lovastatin 10 Mg Tablet 10 Mg PO HS Methimazole 5 Mg Tablet 5 Mg PO DAILY08 Gabapentin (Gabapentin) 300 Mg Capsule 600 Mg PO HS Amitriptyline Hcl 100 Mg Tablet 1 Tab PO QHS Vitals/I & O Vital Sign - Last 24 Hours 08/23/18 08/23/18 08/23/18 08/23/18 17:05 19:30 20:30 23:25 Temp 98.5 98.1 98.0 98.5 98.1 98.0 Pulse 95 68 89 Resp 18 18 18 B/P (MAP) 174/96 (122) 152/37 (75) 95/63 (74) Pulse Ox 100 94 98 O2 Delivery Room Air Room Air Room Air Room Air 08/23/18 08/23/18 08/24/18 08/24/18 23:26 23:27 03:25 07:00 Temp 97.6 97.5 97.6 97.5 Pulse 90 95 88 80 Resp 18 16 18 16 B/P (MAP) 92/55 (67) 88/47 (61) 88/56 (67) 81/54 (63) Pulse Ox 98 99 96 97 O2 Delivery Room Air Room Air Room Air Room Air 08/24/18 08/24/18 08/24/18 10:45 10:48 10:50 Temp 97.8 97.8 Pulse 93 95 Resp 18 B/P (MAP) 102/70 (81) 74/54 (61) Pulse Ox 94 O2 Delivery Room Air Room Air Room Air Intake and Output 08/23/18 08/23/18 08/24/18 15:00 23:00 07:00 Intake Total 400 ml Output Total 350 ml Balance 50 ml NIMESH LANIER III DO August 24, 2018 11:28
[2018-08-24] MEDS ORDERED: IV 1/2 NORMAL SALINE 1,000 ML IV ONE (11:30)
--- NOTE | 2018-08-24 12:33 | CARD ---
MR#: [id number] Date of Study: 08/24/2018 Ordering Physician: CHIDI HERRERA, Referring Physician: PAT MCCOY Tech: Jessica Rothman VANESA APPROVED REPORT EXAM: Two-dimensional and M-mode echocardiogram with Doppler and color Doppler. Other Information Quality : AverageHR: 90bpm Rhythm : NSR INDICATION Hypotension 2D DIMENSIONS RVDd2.7 (2.9-3.5cm)Left Atrium(2D)3.6 (1.6-4.0cm) IVSd1.2 (0.7-1.1cm)Aortic Root(2D)2.8 (2.0-3.7cm) LVDd3.9 (3.9-5.9cm)LVOT Diameter2.0 (1.8-2.4cm) PWd0.8 (0.7-1.1cm)LVDs2.7 (2.5-4.0cm) FS (%) 31.8 %SV40.3 ml Aortic Valve AoV Peak Doug.116.9cm/sAoV VTI24.9cm AO Peak GR.5.5mmHgLVOT VTI 14.05cm AO Mean GR.3mmHgAVA (VTI)1.80cm2 Mitral Valve MV E Qgbkyhtg34.6cm/sMV DECEL SJPT889ic MV A Htuvcwop37.3cm/sE/A Ratio0.8 MV A [id number] TDI Lateral E' P. V8.95cm/sMedial E' P. V5.79cm/s E/Lateral E'7.8E/Medial E'12.0 LEFT VENTRICLE The left ventricle is normal size. Proximal septal thickening is noted. The left ventricular systolic function is normal and the ejection fraction is within normal range. The Ejection Fraction is 55-60% . There is normal LV segmental wall motion. Transmitral Doppler flow pattern is Grade I-abnormal rela xation pattern. RIGHT VENTRICLE The right ventricle is normal size. There is normal right ventricular wall thickness. The right ventr icular systolic function is normal. ATRIA The left atrium size is normal. The right atrium size is normal. The interatrial septum is intact wit h no evidence for an atrial septal defect or patent foramen ovale as noted on 2-D or Doppler imaging. AORTIC VALVE The aortic valve is normal in structure and function. The aortic valve is trileaflet. Doppler and Col or Flow revealed trace aortic regurgitation. There is no significant aortic valvular stenosis. There is no aortic valvular vegetation. MITRAL VALVE The mitral valve is calcified but opens well. There is no evidence of mitral valve prolapse. There is no mitral valve stenosis. Doppler and Color Flow revealed trace mitral valve regurgitation. TRICUSPID VALVE The tricuspid valve is normal in structure and function. Doppler and Color Flow revealed trace tricus pid regurgitation. There is no tricuspid valve prolapse or vegetation. There is no tricuspid valve st enosis. PULMONIC VALVE The pulmonary valve is normal in structure and function. Doppler and Color Flow revealed trace pulmon ic valvular regurgitation. There is no pulmonic valvular stenosis. GREAT VESSELS The aortic root is normal in size. The ascending aorta is normal in size. The IVC is normal in size a nd collapses >50% with inspiration. PERICARDIAL EFFUSION There is no evidence of significant pericardial effusion. Critical Notification Critical Value: No <Conclusion> The left ventricle is normal size. The left ventricular systolic function is normal and the ejection fraction is within normal range. The Ejection Fraction is 55-60%. There is no significant aortic valvular stenosis. Doppler and Color Flow revealed trace aortic regurgitation. Doppler and Color Flow revealed trace mitral valve regurgitation. Doppler and Color Flow revealed trace tricuspid regurgitation. Signed by : Jim Bach MD Electronically Approved : 08/24/2018 12:32:13
[2018-08-24] MEDS: MULTIVITAMIN with MINERAL TABLET. PO SCH (13:06)
--- NOTE | 2018-08-24 15:25 | NUR ---
Wound care: Patient seen per wound care consult. See wound assessment. Patient has multiple wounds from what she states are "bug bites" to her right arm/hand, bilateral lower extremities. Wounds cleansed and assessed. Patient has been managing these at home with Betadine. Patient requesting Betadine and leave open to air. Dressing applied. No other wounds noted. Dressing change instructions left in room. Patient states she may discharge tomorrow and will take care wounds herself after discharge. Wound care will follow while inpatient. Call light in reach and bed lowered. Spoke with RN regarding POC.
[2018-08-24] MEDS: AMITRIPTYLINE HCL 25 MG TABLET. PO SCH (21:11)
[2018-08-24] MEDS: GABAPENTIN 300 MG CAPSULE. PO SCH (21:12)
[2018-08-24] MEDS: ATORVASTATIN CALCIUM 10 MG TABLET. PO SCH (21:12)
[2018-08-25] VITALS (7 sets, daily range): BP systolic 80–151; BP diastolic 38–88
[2018-08-25] MEDS: INSULIN NPH/REG INSULIN 70/30 300 UNITS/3 ML INSULN.PEN. SQ SCH ×2 (07:43→20:47)
[2018-08-25] MEDS: INSULIN LISPRO 300 UNITS/3 ML INSULN.PEN. SQ SCH ×3 (07:43→17:52)
[2018-08-25 07:59] LABS: BASO % 1 % (0-3); EOS # 0.3 x10^3/uL (0.0-0.7); EOS % 5 % (0-3); HEMOGLOBIN 11.3 g/dL (12.0-15.5); LYMPH # 2.4 x10^3/uL (1.0-4.8); LYMPH % 42 % (24-48); MEAN CORPUSCULAR HEMOGLOBIN 28 pg (25-35); MEAN CORPUSCULAR HGB CONC 33 g/dL (31-37); MEAN CORPUSCULAR VOLUME 84 fL (79-100); MONO # 0.4 x10^3/uL (0.0-1.1); MONO % 7 % (0-9); NEUT # 2.5 x10^3uL (1.8-7.7); NEUT % 45 % (31-73); PLATELET COUNT 216 x10^3/uL (140-400); RED BLOOD COUNT 4.07 x10^6/uL (3.50-5.40); RED CELL DISTRIBUTION WIDTH 12.6 % (11.5-14.5); WHITE BLOOD COUNT 5.6 x10^3/uL (4.0-11.0)
[2018-08-25 08:22] LABS: CALCIUM 8.8 mg/dL (8.5-10.1); CREATININE 0.8 mg/dL (0.6-1.0); GFR 74.2; POTASSIUM 4.3 mmol/L (3.5-5.1)
[2018-08-25] MEDS: methIMAzole 10 MG TABLET PO SCH ×2 (08:55→20:34)
[2018-08-25] MEDS: ASCORBIC ACID 500 MG TABLET PO SCH ×2 (08:55→20:34)
[2018-08-25] MEDS: FLUDROCORTISONE 0.1 MG TABLET PO SCH (08:55)
[2018-08-25] MEDS: MULTIVITAMIN with MINERAL TABLET. PO SCH (08:55)
--- NOTE | 2018-08-25 12:19 | PDOC ---
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 [employer] 08/25/18 1219: CARDIO Progress Notes Date and Time Date of Service 08/25/18 Time of Evaluation 1210 Subjective Subjective: No Chest Pain, No shortness of breath Vitals Vitals Vital Signs Date Time Temp Pulse Resp B/P (MAP) Pulse Ox O2 Delivery O2 Flow Rate FiO2 08/25/18 11:05 98.5 97 18 131/84 (100) 95 Room Air 98.5 Weight Weight [ ] Input and Output Intake and Output Intake and Output 08/25/18 06:59 Intake Total 400 ml Balance 400 ml Intake Oral 400 ml # Voids 1 Laboratory Labs Laboratory Tests Test 08/24/18 12:43 08/24/18 13:08 08/24/18 13:33 08/24/18 17:29 Glucose (Fingerstick) 67 mg/dL (70-99) 57 mg/dL (70-99) 104 mg/dL (70-99) 212 mg/dL (70-99) Test 08/24/18 21:04 08/25/18 06:24 08/25/18 07:27 08/25/18 08:19 Glucose (Fingerstick) 242 mg/dL (70-99) 68 mg/dL (70-99) 85 mg/dL (70-99) White Blood Count 5.6 x10^3/uL (4.0-11.0) Red Blood Count 4.07 x10^6/uL (3.50-5.40) Hemoglobin 11.3 g/dL (12.0-15.5) Hematocrit 34.0 % (36.0-47.0) Mean Corpuscular Volume 84 fL (79-100) Mean Corpuscular Hemoglobin 28 pg (25-35) Mean Corpuscular Hemoglobin Concent 33 g/dL (31-37) Red Cell Distribution Width 12.6 % (11.5-14.5) Platelet Count 216 x10^3/uL (140-400) Neutrophils (%) (Auto) 45 % (31-73) Lymphocytes (%) (Auto) 42 % (24-48) Monocytes (%) (Auto) 7 % (0-9) Eosinophils (%) (Auto) 5 % (0-3) Basophils (%) (Auto) 1 % (0-3) Neutrophils # (Auto) 2.5 x10^3uL (1.8-7.7) Lymphocytes # (Auto) 2.4 x10^3/uL (1.0-4.8) Monocytes # (Auto) 0.4 x10^3/uL (0.0-1.1) Eosinophils # (Auto) 0.3 x10^3/uL (0.0-0.7) Basophils # (Auto) 0.0 x10^3/uL (0.0-0.2) Sodium Level 142 mmol/L (136-145) Potassium Level 4.3 mmol/L (3.5-5.1) Chloride Level 106 mmol/L (98-107) Carbon Dioxide Level 32 mmol/L (21-32) Anion Gap 4 (6-14) Blood Urea Nitrogen 36 mg/dL (7-20) Creatinine 0.8 mg/dL (0.6-1.0) Estimated GFR (Cockcroft-Gault) 74.2 Glucose Level 79 mg/dL (70-99) Calcium Level 8.8 mg/dL (8.5-10.1) Test 08/25/18 11:02 Glucose (Fingerstick) 212 mg/dL (70-99) Physical Exam HEENT: Neck Supple W Full Motion Chest: Symmetric LUNGS: Clear to Auscultation Heart: S1S2, RRR Abdomen: Soft N/T Extremities: No Edema Neurology: alert, oriented, follow commands Assessment Assessment 1. Presyncope/Orthostasis/vertigo: suspect combination of autonomic dysfunction and dehydration. Remains orthostatic this am with SBP drop from 115-80 Echo showed LVEF 55-60%. 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 Final result pending 2. Vomiting/diarrhea: better 4. DM, type I 5. Hyperlipidemia 6. Hyperthyroidism: TSH/t3/t4 on goal with methimazole 8. CKD Recommendations Abdominal binder. Unable to do compression stockings due to wounds on legs. Remains orthostatic. Will give additional fluid bolus and increase Florinef. Supportive care BRIGIDO BARNARD MD 08/25/187: CARDIO Progress Notes Assessment Assessment Patient seen and examined. Agree with PLANER OFFBEARER's assessment and plan. Patient continues to be orthostatic Agree with another bag of IVF and increasing florinef to 0.2 mg daily ROSALBA ZAMORANO APRN August 25, 2018 12:19 BRIGIDO BARNARD MD August 25, 2018 21:38
[2018-08-25] MEDS: MIDODRINE 5 MG TABLET PO SCH ×2 (12:57→17:54)
[2018-08-25] MEDS ORDERED: MIDODRINE 5 MG TABLET PO SCH ×2 (13:00)
--- NOTE | 2018-08-25 13:04 | PDOC ---
PROGRESS NOTES Chief Complaint Chief Complaint Hyperosmolar Hyperglycemic Nonketotic State (Blood glucose >600) Orthostasis Large Leg ulceration Hyperthyroidism HTN, Syncope, Hyperlipidemia COPD Periperal neuropathy, TIA Anxiety, Depression Osteoarthritis UTI, Urinary Incontinence Diabetes History of Present Illness History of Present Illness Patient seen and examined. Patient resting comfortable with no acute changes, however she appears drained compared to yesterday. Patient notes dizziness upon standing. Vitals Vitals Vital Signs Date Time Temp Pulse Resp B/P (MAP) Pulse Ox O2 Delivery O2 Flow Rate FiO2 08/25/18 11:05 98.5 97 18 131/84 (100) 95 Room Air 98.5 Physical Exam General: Alert, Oriented X3, Cooperative, No acute distress Heart: Regular rate (SR), Normal S1, Normal S2, No murmurs Lungs: Clear Abdomen: Soft, No tenderness Extremities: No cyanosis, No edema Skin: No breakdown, No significant lesion, Other (multiple non erythematous ulcerations upon patients legs bilaterally) Labs LABS Laboratory Tests Test 08/24/18 13:08 08/24/18 13:33 08/24/18 17:29 08/24/18 21:04 Glucose (Fingerstick) 57 mg/dL (70-99) 104 mg/dL (70-99) 212 mg/dL (70-99) 242 mg/dL (70-99) Test 08/25/18 06:24 08/25/18 07:27 08/25/18 08:19 08/25/18 11:02 White Blood Count 5.6 x10^3/uL (4.0-11.0) Red Blood Count 4.07 x10^6/uL (3.50-5.40) Hemoglobin 11.3 g/dL (12.0-15.5) Hematocrit 34.0 % (36.0-47.0) Mean Corpuscular Volume 84 fL (79-100) Mean Corpuscular Hemoglobin 28 pg (25-35) Mean Corpuscular Hemoglobin Concent 33 g/dL (31-37) Red Cell Distribution Width 12.6 % (11.5-14.5) Platelet Count 216 x10^3/uL (140-400) Neutrophils (%) (Auto) 45 % (31-73) Lymphocytes (%) (Auto) 42 % (24-48) Monocytes (%) (Auto) 7 % (0-9) Eosinophils (%) (Auto) 5 % (0-3) Basophils (%) (Auto) 1 % (0-3) Neutrophils # (Auto) 2.5 x10^3uL (1.8-7.7) Lymphocytes # (Auto) 2.4 x10^3/uL (1.0-4.8) Monocytes # (Auto) 0.4 x10^3/uL (0.0-1.1) Eosinophils # (Auto) 0.3 x10^3/uL (0.0-0.7) Basophils # (Auto) 0.0 x10^3/uL (0.0-0.2) Sodium Level 142 mmol/L (136-145) Potassium Level 4.3 mmol/L (3.5-5.1) Chloride Level 106 mmol/L (98-107) Carbon Dioxide Level 32 mmol/L (21-32) Anion Gap 4 (6-14) Blood Urea Nitrogen 36 mg/dL (7-20) Creatinine 0.8 mg/dL (0.6-1.0) Estimated GFR (Cockcroft-Gault) 74.2 Glucose Level 79 mg/dL (70-99) Calcium Level 8.8 mg/dL (8.5-10.1) Glucose (Fingerstick) 68 mg/dL (70-99) 85 mg/dL (70-99) 212 mg/dL (70-99) Review of Systems Review of Systems Patient denies abdominal pain Patient denies leg swelling or pain Assessment and Plan Assessmemt and Plan Assessment: Hyperosmolar Hyperglycemic Nonketotic State (Blood glucose >600) Orthostatic Hypotension Large Leg ulceration Hyperthyroidism HTN, Syncope, Hyperlipidemia COPD Periperal neuropathy, TIA Anxiety, Depression Osteoarthritis UTI, Urinary Incontinence Diabetes Plan: Start Proamantine 10 mg TID Monitor Glycemic control Monitor BP Labs PT/OT Home meds Discharge Dispo: Pending Comment Review of Relevant I have reviewed the following items zurdo (where applicable) has been applied. Labs Laboratory Tests Test 08/23/18 18:31 08/23/18 20:20 08/23/18 21:43 08/24/18 04:05 Glucose (Fingerstick) 522 mg/dL (70-99) 234 mg/dL (70-99) Urine Collection Type Unknown Urine Color Yellow Urine Clarity Clear Urine pH 5.5 Urine Specific Hannah >=1.030 Urine Protein 30 mg/dL (NEG-TRACE) Urine Glucose (UA) >=1000 mg/dL (NEG) Urine Ketones (Stick) Negative mg/dL (NEG) Urine Blood Trace (NEG) Urine Nitrite Negative (NEG) Urine Bilirubin Negative (NEG) Urine Urobilinogen Dipstick 0.2 mg/dL (0.2 mg/dL) Urine Leukocyte Esterase Negative (NEG) Urine RBC 1-2 /HPF (0-2) Urine WBC 1-4 /HPF (0-4) Urine Squamous Epithelial Cells Few /LPF Urine Bacteria Few /HPF (0-FEW) Urine Opiates Screen Neg (NEG) Urine Methadone Screen Neg (NEG) Urine Barbiturates Neg (NEG) Urine Phencyclidine Screen Neg (NEG) Urine Amphetamine/Methamphetamine Neg (NEG) Urine Benzodiazepines Screen Neg (NEG) Urine Cocaine Screen Neg (NEG) Urine Cannabinoids Screen Neg (NEG) Urine Ethyl Alcohol Neg (NEG) White Blood Count 6.1 x10^3/uL (4.0-11.0) Red Blood Count 4.00 x10^6/uL (3.50-5.40) Hemoglobin 10.8 g/dL (12.0-15.5) Hematocrit 32.9 % (36.0-47.0) Mean Corpuscular Volume 82 fL (79-100) Mean Corpuscular Hemoglobin 27 pg (25-35) Mean Corpuscular Hemoglobin Concent 33 g/dL (31-37) Red Cell Distribution Width 12.8 % (11.5-14.5) Platelet Count 242 x10^3/uL (140-400) Neutrophils (%) (Auto) 39 % (31-73) Lymphocytes (%) (Auto) 48 % (24-48) Monocytes (%) (Auto) 8 % (0-9) Eosinophils (%) (Auto) 5 % (0-3) Basophils (%) (Auto) 1 % (0-3) Neutrophils # (Auto) 2.4 x10^3uL (1.8-7.7) Lymphocytes # (Auto) 2.9 x10^3/uL (1.0-4.8) Monocytes # (Auto) 0.5 x10^3/uL (0.0-1.1) Eosinophils # (Auto) 0.3 x10^3/uL (0.0-0.7) Basophils # (Auto) 0.0 x10^3/uL (0.0-0.2) Sodium Level 143 mmol/L (136-145) Potassium Level 3.6 mmol/L (3.5-5.1) Chloride Level 104 mmol/L (98-107) Carbon Dioxide Level 32 mmol/L (21-32) Anion Gap 7 (6-14) Blood Urea Nitrogen 32 mg/dL (7-20) Creatinine 1.0 mg/dL (0.6-1.0) Estimated GFR (Cockcroft-Gault) 57.4 BUN/Creatinine Ratio 32 (6-20) Glucose Level 74 mg/dL (70-99) Hemoglobin A1c 15.0 % (4.8-5.6) Calcium Level 9.2 mg/dL (8.5-10.1) Total Bilirubin 0.2 mg/dL (0.2-1.0) Aspartate Amino Transf (AST/SGOT) 17 U/L (15-37) Alanine Aminotransferase (ALT/SGPT) 17 U/L (14-59) Alkaline Phosphatase 93 U/L (46-116) Total Protein 5.9 g/dL (6.4-8.2) Albumin 2.8 g/dL (3.4-5.0) Albumin/Globulin Ratio 0.9 (1.0-1.7) Triglycerides Level 56 mg/dL (0-150) Cholesterol Level 188 mg/dL (0-200) LDL Cholesterol, Calculated 120 mg/dL (0-100) VLDL Cholesterol, Calculated 11 mg/dL (0-40) Non-HDL Cholesterol Calculated 131 mg/dL (0-129) HDL Cholesterol 57 mg/dL (40-60) Cholesterol/HDL Ratio 3.3 Thyroid Stimulating Hormone (TSH) 0.807 uIU/mL (0.358-3.74) Free Thyroxine 1.06 ng/dL (0.76-1.46) Free Triiodothyronine (T3) pg/mL 2.19 pg/mL (2.18-3.98) Test 08/24/18 07:29 08/24/18 09:46 08/24/18 12:43 08/24/18 13:08 Glucose (Fingerstick) 78 mg/dL (70-99) 268 mg/dL (70-99) 67 mg/dL (70-99) 57 mg/dL (70-99) Test 08/24/18 13:33 08/24/18 17:29 08/24/18 21:04 08/25/18 06:24 Glucose (Fingerstick) 104 mg/dL (70-99) 212 mg/dL (70-99) 242 mg/dL (70-99) White Blood Count 5.6 x10^3/uL (4.0-11.0) Red Blood Count 4.07 x10^6/uL (3.50-5.40) Hemoglobin 11.3 g/dL (12.0-15.5) Hematocrit 34.0 % (36.0-47.0) Mean Corpuscular Volume 84 fL (79-100) Mean Corpuscular Hemoglobin 28 pg (25-35) Mean Corpuscular Hemoglobin Concent 33 g/dL (31-37) Red Cell Distribution Width 12.6 % (11.5-14.5) Platelet Count 216 x10^3/uL (140-400) Neutrophils (%) (Auto) 45 % (31-73) Lymphocytes (%) (Auto) 42 % (24-48) Monocytes (%) (Auto) 7 % (0-9) Eosinophils (%) (Auto) 5 % (0-3) Basophils (%) (Auto) 1 % (0-3) Neutrophils # (Auto) 2.5 x10^3uL (1.8-7.7) Lymphocytes # (Auto) 2.4 x10^3/uL (1.0-4.8) Monocytes # (Auto) 0.4 x10^3/uL (0.0-1.1) Eosinophils # (Auto) 0.3 x10^3/uL (0.0-0.7) Basophils # (Auto) 0.0 x10^3/uL (0.0-0.2) Sodium Level 142 mmol/L (136-145) Potassium Level 4.3 mmol/L (3.5-5.1) Chloride Level 106 mmol/L (98-107) Carbon Dioxide Level 32 mmol/L (21-32) Anion Gap 4 (6-14) Blood Urea Nitrogen 36 mg/dL (7-20) Creatinine 0.8 mg/dL (0.6-1.0) Estimated GFR (Cockcroft-Gault) 74.2 Glucose Level 79 mg/dL (70-99) Calcium Level 8.8 mg/dL (8.5-10.1) Test 08/25/18 07:27 08/25/18 08:19 08/25/18 11:02 Glucose (Fingerstick) 68 mg/dL (70-99) 85 mg/dL (70-99) 212 mg/dL (70-99) Laboratory Tests Test 08/24/18 13:08 08/24/18 13:33 08/24/18 17:29 08/24/18 21:04 Glucose (Fingerstick) 57 mg/dL (70-99) 104 mg/dL (70-99) 212 mg/dL (70-99) 242 mg/dL (70-99) Test 08/25/18 06:24 08/25/18 07:27 08/25/18 08:19 08/25/18 11:02 White Blood Count 5.6 x10^3/uL (4.0-11.0) Red Blood Count 4.07 x10^6/uL (3.50-5.40) Hemoglobin 11.3 g/dL (12.0-15.5) Hematocrit 34.0 % (36.0-47.0) Mean Corpuscular Volume 84 fL (79-100) Mean Corpuscular Hemoglobin 28 pg (25-35) Mean Corpuscular Hemoglobin Concent 33 g/dL (31-37) Red Cell Distribution Width 12.6 % (11.5-14.5) Platelet Count 216 x10^3/uL (140-400) Neutrophils (%) (Auto) 45 % (31-73) Lymphocytes (%) (Auto) 42 % (24-48) Monocytes (%) (Auto) 7 % (0-9) Eosinophils (%) (Auto) 5 % (0-3) Basophils (%) (Auto) 1 % (0-3) Neutrophils # (Auto) 2.5 x10^3uL (1.8-7.7) Lymphocytes # (Auto) 2.4 x10^3/uL (1.0-4.8) Monocytes # (Auto) 0.4 x10^3/uL (0.0-1.1) Eosinophils # (Auto) 0.3 x10^3/uL (0.0-0.7) Basophils # (Auto) 0.0 x10^3/uL (0.0-0.2) Sodium Level 142 mmol/L (136-145) Potassium Level 4.3 mmol/L (3.5-5.1) Chloride Level 106 mmol/L (98-107) Carbon Dioxide Level 32 mmol/L (21-32) Anion Gap 4 (6-14) Blood Urea Nitrogen 36 mg/dL (7-20) Creatinine 0.8 mg/dL (0.6-1.0) Estimated GFR (Cockcroft-Gault) 74.2 Glucose Level 79 mg/dL (70-99) Calcium Level 8.8 mg/dL (8.5-10.1) Glucose (Fingerstick) 68 mg/dL (70-99) 85 mg/dL (70-99) 212 mg/dL (70-99) Medications Current Medications Insulin Human Lispro (HumaLOG) 0-9 UNITS TIDWMEALS SQ Last administered on 08/24/18 17:58; Start 08/24/18 at 08:00 Dextrose (Dextrose 50%-Water Syringe) 12.5 gm PRN Q15MIN PRN IV SEE COMMENTS; Start 08/23/18 at 20:30 Fludrocortisone Acetate (Florinef) 0.1 mg DAILY PO Last administered on 08/25/18 08:55; Start 08/24/18 at 09:00 Gabapentin (Neurontin) 600 mg HS PO Last administered on 08/24/18 21:12; Start 08/23/18 at 22:00 Amitriptyline HCl (Elavil) 100 mg QHS PO Last administered on 08/24/18 21:11; Start 08/23/18 at 22:00 Insulin Human Isoph/Insulin Regular (HumuLIN 70/30) 15 units QHS SQ Last administered on 08/24/18 21:21; Start 08/23/18 at 22:00 Insulin Human Isoph/Insulin Regular (HumuLIN 70/30) 45 units [id number] SQ Last administered on 08/24/18at 09:50; Start 08/24/18 at 08:00 Atorvastatin Calcium (Lipitor) 5 mg QHS PO Last administered on 08/24/18at 21:12; Start 08/23/18 at 22:00 Methimazole (Tapazole) 5 mg DAILY08 PO ; Start 08/24/18 at 08:00; Stop 08/24/18 at 08:00; Status DC Methimazole (Tapazole) 5 mg BID PO Last administered on 08/25/18at 08:55; Start 08/24/18 at 09:00 Multivitamins (Thera M Plus) 1 tab DAILY PO Last administered on 08/25/18at 08:55; Start 08/24/18 at 11:00 Sodium Chloride 1,000 ml @ 125 mls/hr 1X ONCE IV Last administered on 08/24/18at 13:07; Start 08/24/18 at 11:30; Stop 08/24/18 at 19:29; Status DC Ascorbic Acid (Vitamin C) 500 mg BID PO Last administered on 08/25/18at 08:55; Start 08/25/18 at 09:00 Midodrine (Proamatine) 10 mg [id number] PO ; Start 08/25/18 at 13:00 Midodrine (Proamatine) 10 mg [id number] PO ; Start 08/25/18 at 13:00; Status UNV Active Scripts Active Fludrocortisone Acetate 0.1 Mg Tablet 0.1 Mg PO DAILY Reported Novolin 70-30 100 Unit/Ml Vial (Hum Insulin Nph/Reg Insulin Hm) 100 Unit/1 Ml Vial 15 Unit SQ HS Novolin 70-30 100 Unit/Ml Vial (Hum Insulin Nph/Reg Insulin Hm) 100 Unit/1 Ml Vial 45 Units SQ DAILY Lovastatin 10 Mg Tablet 10 Mg PO HS Methimazole 5 Mg Tablet 5 Mg PO DAILY08 Gabapentin (Gabapentin) 300 Mg Capsule 600 Mg PO HS Amitriptyline Hcl 100 Mg Tablet 1 Tab PO QHS Vitals/I & O Vital Sign - Last 24 Hours 08/24/18 08/24/18 08/24/18 08/24/18 13:45 13:50 13:55 14:00 B/P (MAP) 94/58 (70) 77/44 (55) 78/54 (62) O2 Delivery Room Air Room Air Room Air Room Air 08/24/18 08/24/18 08/24/18 08/24/18 14:05 19:10 20:20 23:17 Temp 98.0 98.1 97.8 98.0 98.1 97.8 Pulse 92 99 96 Resp 16 16 16 B/P (MAP) 87/57 (67) 115/73 (87) 143/87 (105) Pulse Ox 93 97 97 O2 Delivery Room Air Room Air Room Air Room Air 08/25/18 08/25/18 08/25/18 08/25/18 03:48 07:00 08:21 08:21 Temp 98.1 98.0 98.1 98.0 Pulse 92 94 101 91 Resp 16 14 B/P (MAP) 114/72 (86) 118/74 (89) 88/60 (69) 115/79 (91) Pulse Ox 94 94 O2 Delivery Room Air Room Air 08/25/18 08/25/18 08/25/18 08:21 08:30 11:05 Temp 98.5 98.5 Pulse 101 97 Resp 18 B/P (MAP) 80/38 (52) 131/84 (100) Pulse Ox 95 O2 Delivery Room Air Room Air Intake and Output 08/24/18 08/24/18 08/25/18 14:59 22:59 06:59 Intake Total 400 ml Balance 400 ml NIMESH LANIER III DO August 25, 2018 13:04
[2018-08-25] MEDS ORDERED: IV 1/2 NORMAL SALINE 1,000 ML IV ONE (13:45)
--- NOTE | 2018-08-25 14:22 | NUR ---
SW following pt for anticipated dc needs. Chart reviewed and Discussed with RN. Pt lives at home and PT/OT recommends SNU. Attempted to speak with pt but pt was asleep. Will attempt to see pt later.
[2018-08-25] MEDS: ATORVASTATIN CALCIUM 10 MG TABLET. PO SCH (20:34)
[2018-08-25] MEDS: AMITRIPTYLINE HCL 25 MG TABLET. PO SCH (20:34)
[2018-08-25] MEDS: GABAPENTIN 300 MG CAPSULE. PO SCH (20:34)
[2018-08-26] VITALS (7 sets, daily range): BP systolic 86–173; BP diastolic 55–98
[2018-08-26 05:14] LABS: BASO % 1 % (0-3); EOS # 0.3 x10^3/uL (0.0-0.7); EOS % 5 % (0-3); HEMOGLOBIN 11.5 g/dL (12.0-15.5); LYMPH # 2.1 x10^3/uL (1.0-4.8); LYMPH % 43 % (24-48); MEAN CORPUSCULAR HEMOGLOBIN 28 pg (25-35); MEAN CORPUSCULAR HGB CONC 33 g/dL (31-37); MEAN CORPUSCULAR VOLUME 83 fL (79-100); MONO # 0.4 x10^3/uL (0.0-1.1); MONO % 8 % (0-9); NEUT # 2.2 x10^3uL (1.8-7.7); NEUT % 43 % (31-73); PLATELET COUNT 216 x10^3/uL (140-400); RED CELL DISTRIBUTION WIDTH 12.7 % (11.5-14.5)
[2018-08-26 05:32] LABS: CREATININE 0.8 mg/dL (0.6-1.0); GFR 74.2; POTASSIUM 3.9 mmol/L (3.5-5.1)
[2018-08-26] MEDS: MIDODRINE 5 MG TABLET PO SCH ×2 (06:46→12:58)
[2018-08-26] MEDS: INSULIN LISPRO 300 UNITS/3 ML INSULN.PEN. SQ SCH ×2 (08:00→12:53)
[2018-08-26] MEDS ORDERED: FLUDROCORTISONE 0.1 MG TABLET PO SCH (09:00)
[2018-08-26] MEDS: MULTIVITAMIN with MINERAL TABLET. PO SCH (09:06)
[2018-08-26] MEDS: methIMAzole 10 MG TABLET PO SCH (09:06)
[2018-08-26] MEDS: ASCORBIC ACID 500 MG TABLET PO SCH (09:06)
[2018-08-26] MEDS: INSULIN NPH/REG INSULIN 70/30 300 UNITS/3 ML INSULN.PEN. SQ SCH (09:24)
--- NOTE | 2018-08-26 10:41 | PDOC ---
CHIDI HERRERA LEGAL COMPLIANCE OFFICER 08/26/18 1041: CARDIO Progress Notes Date and Time Date of Service 08/26/2018 Time of Evaluation 0920 Subjective Subjective: No Chest Pain, No shortness of breath, No Palpitations, Other (dizziness is better) Vitals Vitals Vital Signs Date Time Temp Pulse Resp B/P (MAP) Pulse Ox O2 Delivery O2 Flow Rate FiO2 08/26/18 08:56 86 86/55 (65) 99 Room Air 08/26/18 07:35 97.6 17 97.6 Weight Weight [ ] Input and Output Intake and Output Intake and Output 08/26/18 06:59 Intake Total 1160 ml Output Total 2550 ml Balance -1390 ml Intake Oral 1160 ml Output Urine Total 2550 ml # Voids 2 Laboratory Labs Laboratory Tests Test 08/25/18 11:02 08/25/18 16:42 08/25/18 20:42 08/26/18 04:20 Glucose (Fingerstick) 212 mg/dL (70-99) 184 mg/dL (70-99) 289 mg/dL (70-99) White Blood Count 5.0 x10^3/uL (4.0-11.0) Red Blood Count 4.20 x10^6/uL (3.50-5.40) Hemoglobin 11.5 g/dL (12.0-15.5) Hematocrit 35.0 % (36.0-47.0) Mean Corpuscular Volume 83 fL (79-100) Mean Corpuscular Hemoglobin 28 pg (25-35) Mean Corpuscular Hemoglobin Concent 33 g/dL (31-37) Red Cell Distribution Width 12.7 % (11.5-14.5) Platelet Count 216 x10^3/uL (140-400) Neutrophils (%) (Auto) 43 % (31-73) Lymphocytes (%) (Auto) 43 % (24-48) Monocytes (%) (Auto) 8 % (0-9) Eosinophils (%) (Auto) 5 % (0-3) Basophils (%) (Auto) 1 % (0-3) Neutrophils # (Auto) 2.2 x10^3uL (1.8-7.7) Lymphocytes # (Auto) 2.1 x10^3/uL (1.0-4.8) Monocytes # (Auto) 0.4 x10^3/uL (0.0-1.1) Eosinophils # (Auto) 0.3 x10^3/uL (0.0-0.7) Basophils # (Auto) 0.0 x10^3/uL (0.0-0.2) Sodium Level 141 mmol/L (136-145) Potassium Level 3.9 mmol/L (3.5-5.1) Chloride Level 105 mmol/L (98-107) Carbon Dioxide Level 32 mmol/L (21-32) Anion Gap 4 (6-14) Blood Urea Nitrogen 27 mg/dL (7-20) Creatinine 0.8 mg/dL (0.6-1.0) Estimated GFR (Cockcroft-Gault) 74.2 Glucose Level 128 mg/dL (70-99) Calcium Level 9.0 mg/dL (8.5-10.1) Test 08/26/18 07:52 Glucose (Fingerstick) 128 mg/dL (70-99) Physical Exam HEENT: Neck Supple W Full Motion Chest: Symmetric LUNGS: Clear to Auscultation Heart: S1S2, RRR (SR no ectopies) Abdomen: Soft N/T Extremities: No Edema Neurology: alert, oriented, follow commands Assessment Assessment 1. Presyncope/Orthostasis/vertigo: suspect autonomic neuropathy. remains with orthostasis but dizziness is improved. 2. Vomiting/diarrhea: better 4. DM, type I 5. Hyperlipidemia 6. Hyperthyroidism: TSH/t3/t4 on goal with methimazole 8. CKD Recommendations 1. Continue with abd binder. florinef. Agree with midodrine. Push fluids. 2. Awaiting pending addisons workup from her furniture stainer 3. Supportive care BRIGIDO BARNARD MD 08/26/18 1319: CARDIO Progress Notes Assessment Assessment Patient seen and examined. Agree with IRRIGATOR OVERHEAD's assessment and plan. Patient continues to be orthostatic Agree with starting midodrine. CHIDI HERRERA APRN August 26, 2018 10:41 BRIGIDO BARNARD MD August 26, 2018 13:19
--- NOTE | 2018-08-26 11:48 | PDOC ---
PROGRESS NOTES Chief Complaint Chief Complaint Hyperosmolar Hyperglycemic Nonketotic State (Blood glucose >600) Orthostasis Large Leg ulceration Hyperthyroidism HTN, Syncope, Hyperlipidemia COPD Periperal neuropathy, TIA Anxiety, Depression Osteoarthritis UTI, Urinary Incontinence Diabetes History of Present Illness History of Present Illness Patient seen and examined. Patient sitting up in chair, looking much improved Patient states feeling better after having received the proamantine Patient feels well and desires to leave today Vitals Vitals Vital Signs Date Time Temp Pulse Resp B/P (MAP) Pulse Ox O2 Delivery O2 Flow Rate FiO2 08/26/18 11:23 97.5 94 18 173/95 (121) 100 Room Air 97.5 Physical Exam General: Alert, Oriented X3, Cooperative, No acute distress Heart: Regular rate (SR), Normal S1, Normal S2, No murmurs Lungs: Clear Abdomen: Soft, No tenderness Extremities: No cyanosis, No edema Skin: No breakdown, No significant lesion, Other (multiple non erythematous ulc erations upon patients legs bilaterally) Labs LABS Laboratory Tests Test 08/25/18 16:42 08/25/18 20:42 08/26/18 04:20 08/26/18 07:52 Glucose (Fingerstick) 184 mg/dL (70-99) 289 mg/dL (70-99) 128 mg/dL (70-99) White Blood Count 5.0 x10^3/uL (4.0-11.0) Red Blood Count 4.20 x10^6/uL (3.50-5.40) Hemoglobin 11.5 g/dL (12.0-15.5) Hematocrit 35.0 % (36.0-47.0) Mean Corpuscular Volume 83 fL (79-100) Mean Corpuscular Hemoglobin 28 pg (25-35) Mean Corpuscular Hemoglobin Concent 33 g/dL (31-37) Red Cell Distribution Width 12.7 % (11.5-14.5) Platelet Count 216 x10^3/uL (140-400) Neutrophils (%) (Auto) 43 % (31-73) Lymphocytes (%) (Auto) 43 % (24-48) Monocytes (%) (Auto) 8 % (0-9) Eosinophils (%) (Auto) 5 % (0-3) Basophils (%) (Auto) 1 % (0-3) Neutrophils # (Auto) 2.2 x10^3uL (1.8-7.7) Lymphocytes # (Auto) 2.1 x10^3/uL (1.0-4.8) Monocytes # (Auto) 0.4 x10^3/uL (0.0-1.1) Eosinophils # (Auto) 0.3 x10^3/uL (0.0-0.7) Basophils # (Auto) 0.0 x10^3/uL (0.0-0.2) Sodium Level 141 mmol/L (136-145) Potassium Level 3.9 mmol/L (3.5-5.1) Chloride Level 105 mmol/L (98-107) Carbon Dioxide Level 32 mmol/L (21-32) Anion Gap 4 (6-14) Blood Urea Nitrogen 27 mg/dL (7-20) Creatinine 0.8 mg/dL (0.6-1.0) Estimated GFR (Cockcroft-Gault) 74.2 Glucose Level 128 mg/dL (70-99) Calcium Level 9.0 mg/dL (8.5-10.1) Test 08/26/18 11:10 Glucose (Fingerstick) 212 mg/dL (70-99) Review of Systems Review of Systems Patient denies Abdominal Pain Patient denies BELL Assessment and Plan Assessmemt and Plan Assessment: Hyperosmolar Hyperglycemic Nonketotic State (Blood glucose >600) Orthostatic Hypotension Large Leg ulceration Hyperthyroidism HTN, Syncope, Hyperlipidemia COPD Periperal neuropathy, TIA Anxiety, Depression Osteoarthritis UTI, Urinary Incontinence Diabetes Plan: Continue Proamantine 10 mg TID Self monitor glucose levels Home meds Discharge Dispo: Probable discharge to home Comment Review of Relevant I have reviewed the following items zurdo (where applicable) has been applied. Labs Laboratory Tests Test 08/24/18 12:43 08/24/18 13:08 08/24/18 13:33 08/24/18 17:29 Glucose (Fingerstick) 67 mg/dL (70-99) 57 mg/dL (70-99) 104 mg/dL (70-99) 212 mg/dL (70-99) Test 08/24/18 21:04 08/25/18 06:24 08/25/18 07:27 08/25/18 08:19 Glucose (Fingerstick) 242 mg/dL (70-99) 68 mg/dL (70-99) 85 mg/dL (70-99) White Blood Count 5.6 x10^3/uL (4.0-11.0) Red Blood Count 4.07 x10^6/uL (3.50-5.40) Hemoglobin 11.3 g/dL (12.0-15.5) Hematocrit 34.0 % (36.0-47.0) Mean Corpuscular Volume 84 fL (79-100) Mean Corpuscular Hemoglobin 28 pg (25-35) Mean Corpuscular Hemoglobin Concent 33 g/dL (31-37) Red Cell Distribution Width 12.6 % (11.5-14.5) Platelet Count 216 x10^3/uL (140-400) Neutrophils (%) (Auto) 45 % (31-73) Lymphocytes (%) (Auto) 42 % (24-48) Monocytes (%) (Auto) 7 % (0-9) Eosinophils (%) (Auto) 5 % (0-3) Basophils (%) (Auto) 1 % (0-3) Neutrophils # (Auto) 2.5 x10^3uL (1.8-7.7) Lymphocytes # (Auto) 2.4 x10^3/uL (1.0-4.8) Monocytes # (Auto) 0.4 x10^3/uL (0.0-1.1) Eosinophils # (Auto) 0.3 x10^3/uL (0.0-0.7) Basophils # (Auto) 0.0 x10^3/uL (0.0-0.2) Sodium Level 142 mmol/L (136-145) Potassium Level 4.3 mmol/L (3.5-5.1) Chloride Level 106 mmol/L (98-107) Carbon Dioxide Level 32 mmol/L (21-32) Anion Gap 4 (6-14) Blood Urea Nitrogen 36 mg/dL (7-20) Creatinine 0.8 mg/dL (0.6-1.0) Estimated GFR (Cockcroft-Gault) 74.2 Glucose Level 79 mg/dL (70-99) Calcium Level 8.8 mg/dL (8.5-10.1) Test 08/25/18 11:02 08/25/18 16:42 08/25/18 20:42 08/26/18 04:20 Glucose (Fingerstick) 212 mg/dL (70-99) 184 mg/dL (70-99) 289 mg/dL (70-99) White Blood Count 5.0 x10^3/uL (4.0-11.0) Red Blood Count 4.20 x10^6/uL (3.50-5.40) Hemoglobin 11.5 g/dL (12.0-15.5) Hematocrit 35.0 % (36.0-47.0) Mean Corpuscular Volume 83 fL (79-100) Mean Corpuscular Hemoglobin 28 pg (25-35) Mean Corpuscular Hemoglobin Concent 33 g/dL (31-37) Red Cell Distribution Width 12.7 % (11.5-14.5) Platelet Count 216 x10^3/uL (140-400) Neutrophils (%) (Auto) 43 % (31-73) Lymphocytes (%) (Auto) 43 % (24-48) Monocytes (%) (Auto) 8 % (0-9) Eosinophils (%) (Auto) 5 % (0-3) Basophils (%) (Auto) 1 % (0-3) Neutrophils # (Auto) 2.2 x10^3uL (1.8-7.7) Lymphocytes # (Auto) 2.1 x10^3/uL (1.0-4.8) Monocytes # (Auto) 0.4 x10^3/uL (0.0-1.1) Eosinophils # (Auto) 0.3 x10^3/uL (0.0-0.7) Basophils # (Auto) 0.0 x10^3/uL (0.0-0.2) Sodium Level 141 mmol/L (136-145) Potassium Level 3.9 mmol/L (3.5-5.1) Chloride Level 105 mmol/L (98-107) Carbon Dioxide Level 32 mmol/L (21-32) Anion Gap 4 (6-14) Blood Urea Nitrogen 27 mg/dL (7-20) Creatinine 0.8 mg/dL (0.6-1.0) Estimated GFR (Cockcroft-Gault) 74.2 Glucose Level 128 mg/dL (70-99) Calcium Level 9.0 mg/dL (8.5-10.1) Test 08/26/18 07:52 08/26/18 11:10 Glucose (Fingerstick) 128 mg/dL (70-99) 212 mg/dL (70-99) Laboratory Tests Test 08/25/18 16:42 08/25/18 20:42 08/26/18 04:20 08/26/18 07:52 Glucose (Fingerstick) 184 mg/dL (70-99) 289 mg/dL (70-99) 128 mg/dL (70-99) White Blood Count 5.0 x10^3/uL (4.0-11.0) Red Blood Count 4.20 x10^6/uL (3.50-5.40) Hemoglobin 11.5 g/dL (12.0-15.5) Hematocrit 35.0 % (36.0-47.0) Mean Corpuscular Volume 83 fL (79-100) Mean Corpuscular Hemoglobin 28 pg (25-35) Mean Corpuscular Hemoglobin Concent 33 g/dL (31-37) Red Cell Distribution Width 12.7 % (11.5-14.5) Platelet Count 216 x10^3/uL (140-400) Neutrophils (%) (Auto) 43 % (31-73) Lymphocytes (%) (Auto) 43 % (24-48) Monocytes (%) (Auto) 8 % (0-9) Eosinophils (%) (Auto) 5 % (0-3) Basophils (%) (Auto) 1 % (0-3) Neutrophils # (Auto) 2.2 x10^3uL (1.8-7.7) Lymphocytes # (Auto) 2.1 x10^3/uL (1.0-4.8) Monocytes # (Auto) 0.4 x10^3/uL (0.0-1.1) Eosinophils # (Auto) 0.3 x10^3/uL (0.0-0.7) Basophils # (Auto) 0.0 x10^3/uL (0.0-0.2) Sodium Level 141 mmol/L (136-145) Potassium Level 3.9 mmol/L (3.5-5.1) Chloride Level 105 mmol/L (98-107) Carbon Dioxide Level 32 mmol/L (21-32) Anion Gap 4 (6-14) Blood Urea Nitrogen 27 mg/dL (7-20) Creatinine 0.8 mg/dL (0.6-1.0) Estimated GFR (Cockcroft-Gault) 74.2 Glucose Level 128 mg/dL (70-99) Calcium Level 9.0 mg/dL (8.5-10.1) Test 08/26/18 11:10 Glucose (Fingerstick) 212 mg/dL (70-99) Medications Current Medications Insulin Human Lispro (HumaLOG) 0-9 UNITS TIDWMEALS SQ Last administered on 08/25/18 17:52; Start 08/24/18 at 08:00 Dextrose (Dextrose 50%-Water Syringe) 12.5 gm PRN Q15MIN PRN IV SEE COMMENTS; Start 08/23/18 at 20:30 Fludrocortisone Acetate (Florinef) 0.1 mg DAILY PO Last administered on 08/25/18 08:55; Start 08/24/18 at 09:00; Stop 08/25/18 at 13:35; Status DC Gabapentin (Neurontin) 600 mg HS PO Last administered on 08/25/18 20:34; Start 08/23/18 at 22:00 Amitriptyline HCl (Elavil) 100 mg QHS PO Last administered on 08/25/18 20:34; Start 08/23/18 at 22:00 Insulin Human Isoph/Insulin Regular (HumuLIN 70/30) 15 units QHS SQ Last administered on 08/25/18 20:47; Start 08/23/18 at 22:00 Insulin Human Isoph/Insulin Regular (HumuLIN 70/30) 45 units [id number] SQ Last administered on 08/26/18at 09:24; Start 08/24/18 at 08:00 Atorvastatin Calcium (Lipitor) 5 mg QHS PO Last administered on 08/25/18 20:34; Start 08/23/18 at 22:00 Methimazole (Tapazole) 5 mg [id number] PO ; Start 08/24/18 at 08:00; Stop 08/24/18 at 08:00; Status DC Methimazole (Tapazole) 5 mg BID PO Last administered on 08/26/18 09:06; Start 08/24/18 at 09:00 Multivitamins (Thera M Plus) 1 tab DAILY PO Last administered on 08/26/18at 09:06; Start 08/24/18 at 11:00 Sodium Chloride 1,000 ml @ 125 mls/hr 1X ONCE IV Last administered on 08/24/18at 13:07; Start 08/24/18 at 11:30; Stop 08/24/18 at 19:29; Status DC Ascorbic Acid (Vitamin C) 500 mg BID PO Last administered on 08/26/18at 09:06; Start 08/25/18 at 09:00 Midodrine (Proamatine) 10 mg [id number] PO Last administered on 08/26/18at 06:46; Start 08/25/18 at 13:00 Midodrine (Proamatine) 10 mg [id number] PO ; Start 08/25/18 at 13:00; Status UNV Midodrine (Proamatine) 10 mg [id number] PO ; Start 08/25/18 at 13:00; Status UNV Fludrocortisone Acetate (Florinef) 0.2 mg DAILY PO Last administered on 08/26/18at 09:06; Start 08/26/18 at 09:00 Sodium Chloride 1,000 ml @ 125 mls/hr 1X ONCE IV Last administered on 08/25/18at 14:25; Start 08/25/18 at 13:45; Stop 08/25/18 at 21:44; Status DC Active Scripts Active Fludrocortisone Acetate 0.1 Mg Tablet 0.1 Mg PO DAILY Reported Novolin 70-30 100 Unit/Ml Vial (Hum Insulin Nph/Reg Insulin Hm) 100 Unit/1 Ml Vial 15 Unit SQ HS Novolin 70-30 100 Unit/Ml Vial (Hum Insulin Nph/Reg Insulin Hm) 100 Unit/1 Ml Vial 45 Units SQ DAILY Lovastatin 10 Mg Tablet 10 Mg PO HS Methimazole 5 Mg Tablet 5 Mg PO DAILY08 Gabapentin (Gabapentin) 300 Mg Capsule 600 Mg PO HS Amitriptyline Hcl 100 Mg Tablet 1 Tab PO QHS Vitals/I & O Vital Sign - Last 24 Hours 08/25/18 08/25/18 08/25/18 08/25/18 12:57 15:00 17:54 19:00 Temp 98.0 98.3 98.0 98.3 Pulse 97 97 97 102 Resp 16 18 B/P (MAP) 131/84 141/85 (103) 141/85 151/88 (109) Pulse Ox 96 94 O2 Delivery Room Air Room Air 08/25/18 08/26/18 08/26/18 08/26/18 23:00 03:00 06:46 07:35 Temp 98.0 98.1 97.6 98.0 98.1 97.6 Pulse 100 94 94 88 Resp 18 18 17 B/P (MAP) 146/88 (107) 134/89 (104) 134/89 160/97 (118) Pulse Ox 94 96 98 O2 Delivery Room Air Room Air Room Air 08/26/18 08/26/18 08/26/18 08/26/18 08:50 08:53 08:56 11:23 Temp 97.5 97.5 Pulse 89 96 86 94 Resp 18 B/P (MAP) 157/98 (117) 126/82 (97) 86/55 (65) 173/95 (121) Pulse Ox 97 99 99 100 O2 Delivery Room Air Room Air Room Air Room Air Intake and Output 08/25/18 08/25/18 08/26/18 14:59 22:59 06:59 Intake Total 200 ml 660 ml 300 ml Output Total 750 ml 800 ml 1000 ml Balance -550 ml -140 ml -700 ml NIMESH LANIER III DO August 26, 2018 11:48
--- NOTE | 2018-08-26 12:42 | NUR ---
SW met with pt in room and pt is dressed to go home. Pt indicated no problems with ambulation and no need for SNU. Pt discharging home with self care. RN in room.
--- NOTE | 2018-08-26 13:15 | NUR ---
Discharge Note: TAYLOR SARAVIA [address] Discharge instructions and discharge home medications reviewed with patient and a copy given. All questions have been answered and understanding verbalized. 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 Mcgee on September 29 at 1pm Discontinued lines and drains: peripheral IV intact, patient tolerated removal, no complications noted Patient discharged to home with self care accompanied by patient's via wheelchair at 1305. Addendum: 08/26/18 at 1338 by KERI BELL RN Wrong entry: no ff up with Dr. Mcgee Wound care with betadine daily.
--- NOTE | 2018-08-26 20:30 | DS ---
DATE OF DISCHARGE: 08/26/2018 ADMISSION DIAGNOSES: Hyperosmolar nonketotic hyperglycemia and orthostatic hypotension, diabetes. DISCHARGE DIAGNOSIS: Resolving hyperosmolar nonketotic hyperglycemia, resolving orthostasis. HOSPITAL COURSE: The patient is a pleasant middle-aged female who presented with honk. She was also orthostatic. We admitted the patient, gave her IV insulin, IV fluids. Over the past couple of days, she has returned to her baseline. This morning, I saw and examined her. Her heart tones are normal. Lungs were clear. She is feeling great. She is ready for discharge, wants to go home. We plan to discharge. I did add in ProAmatine 10 mg p.o. t.i.d. because she has been having some orthostasis. DISPOSITION: Home. ACTIVITY: As tolerated. DIET: Renal. MEDICATIONS: Please see the MRAD. I did put her back on her home meds and added in ProAmatine 10 mg p.o. t.i.d. TOTAL TIME: 31 minutes. NIMESH LANIER DO DR: ABRAHAM/ted JOB#: [id number] / [id number]
== END 2018-08-26 13:09 | disposition home or self-care (01) | DRG 73 ==
LOC: 6 SOUTH 17:10
PROVIDERS: ADMIT Internal Medicine; ATTEND Internal Medicine
DX: G90.8 Other disorders of autonomic nervous system (principal); E11.00 Type 2 diabetes mellitus with hyperosmolarity without nonketotic hyperglycemic-hyperosmolar coma (NKHHC); N39.0 Urinary tract infection, site not specified; L97.909 Non-pressure chronic ulcer of unspecified part of unspecified lower leg with unspecified severity; G45.9 Transient cerebral ischemic attack, unspecified; E27.1 Primary adrenocortical insufficiency; E86.0 Dehydration; I10 Essential (primary) hypertension; R32 Unspecified urinary incontinence; I95.1 Orthostatic hypotension; J44.9 Chronic obstructive pulmonary disease, unspecified; Z88.8 Allergy status to other drugs, medicaments and biological substances; Z91.018 Allergy to other foods; E05.90 Thyrotoxicosis, unspecified without thyrotoxic crisis or storm; E11.22 Type 2 diabetes mellitus with diabetic chronic kidney disease; E11.43 Type 2 diabetes mellitus with diabetic autonomic (poly)neuropathy; E11.622 Type 2 diabetes mellitus with other skin ulcer; E78.5 Hyperlipidemia, unspecified; F32.9 Major depressive disorder, single episode, unspecified; F41.9 Anxiety disorder, unspecified; I12.9 Hypertensive chronic kidney disease with stage 1 through stage 4 chronic kidney disease, or unspecified chronic kidney disease; M19.90 Unspecified osteoarthritis, unspecified site; N18.9 Chronic kidney disease, unspecified; N63.10 Unspecified lump in the right breast, unspecified quadrant; Z83.3 Family history of diabetes mellitus; Z86.73 Personal history of transient ischemic attack (TIA), and cerebral infarction without residual deficits; Z79.4 Long term (current) use of insulin
CPT/HCPCS: 36415; 80048; 80053; 80061; 80307; 81001; 82962; 82985; 83036; 84439; 84443; 84481; 85025; 93306; J1815; 97535

== ENCOUNTER 2018-09-06 18:04 | Emergency (ER) | payer OTHER ==
[~2018-09-06] VITALS: Ht 175.3 cm; Wt 64.4 kg
[~2018-09-06 18:04] MED LIST changes: +HUM100VI5 SQ; +LOVA10TA PO
[2018-09-06 18:39] VITALS: BP 155/80
--- NOTE | 2018-09-06 18:58 | PHYS DOC ---
Past Medical History Past Medical History: Arthritis, Diabetes-Type II, High Cholesterol, Hypo tension, MRSA Additional Past Medical Histor: MRSA (FRANTZ DAMON APRN) Past Surgical History: Other Additional Past Surgical Histo: R LEG I&D,L FOOT SURG (FRANTZ DAMON APRN) Alcohol Use: None Drug Use: None (FRANTZ DAMON APRN) Adult General Chief Complaint Chief Complaint: HAND PROBLEM HPI HPI Patient is a 58 year old female who presents to ER with a right hand contracture that started this morning when she woke up. Denies trauma to the hand. No cuts or lacerations. Reports her pain is 10/10. Has tried massaging the hand which has not worked. (FRANTZ DAMON APRN) Review of Systems Review of Systems Constitutional: Denies fever or chills [] Eyes: Denies change in visual acuity, redness, or eye pain [] HENT: Denies nasal congestion or sore throat [] Respiratory: Denies cough or shortness of breath [] Cardiovascular: No additional information not addressed in HPI [] GI: Denies abdominal pain, nausea, vomiting, bloody stools or diarrhea [] : Denies dysuria or hematuria [] Musculoskeletal: Denies back pain or joint pain with exception of R hand contracture. Integument: Denies rash or skin lesions [] Neurologic: Denies headache, focal weakness or sensory changes [] Endocrine: Denies polyuria or polydipsia [] Complete systems were reviewed and found to be within normal limits, except as documented in this note. (FRANTZ DAMON APRN) Allergies Allergies Allergies Coded Allergies Type Severity Reaction Last Updated Verified atorvastatin Allergy Severe throat swells 09/12/18 Yes hydroxyzine Allergy Severe DIZZINESS, "I FEEL LIKE IM DRUNK" 08/16/18 Yes raspberry Allergy Severe CHOKING SENSATION IN THROAT 10/25/15 Yes tramadol Allergy Severe VOMITING 08/16/18 Yes amoxicillin Allergy Intermediate 10/13/17 Yes aspirin Allergy Intermediate 10/13/17 Yes codeine Allergy Intermediate 10/13/17 Yes ibuprofen Allergy Intermediate 10/13/17 Yes morphine Allergy Intermediate 10/13/17 Yes (ANDREW MOCTEZUMA MD) Physical Exam Physical Exam Constitutional: Well developed, well nourished, no acute distress, non-toxic appearance. [] HENT: Normocephalic, atraumatic, bilateral external ears normal, oropharynx moist, no oral exudates, nose normal. [] Eyes: PERRLA, EOMI, conjunctiva normal, no discharge. [] Neck: Normal range of motion, no tenderness, supple, no stridor. [] Cardiovascular:Heart rate regular rhythm, no murmur [] Lungs & Thorax: Bilateral breath sounds clear to auscultation [] Abdomen: Soft, no tenderness, no masses, no pulsatile masses. [] Skin: Warm, dry, no erythema, no rash. [] Back: No tenderness, no CVA tenderness. [] Extremities: No tenderness, no cyanosis, no clubbing, ROM intact with exception of R hand, no edema. Patient cannot extend 2nd-5th digits without pressing on the fingers. Fingers can be manually extended with pain that shoots into the palm of the hand. Neurologic: Alert and oriented X 3, normal motor function, normal sensory function with exception of R 2nd-5th digits that have reduced sensation, no focal deficits noted. [] Psychologic: Affect normal, judgement normal, mood normal. [] (FRANTZ DAMON APRN) Current Patient Data Vital Signs Vital Signs Date Time Temp Pulse Resp B/P (MAP) Pulse Ox O2 Delivery O2 Flow Rate FiO2 09/06/18 18:39 98.2 94 20 155/80 (105) 98 Room Air 98.2 (ANDREW MOCTEZUMA MD) EKG EKG [] (FRANTZ DAMON APRN) Radiology/Procedures Radiology/Procedures [] (FRANTZ DAMON APRN) Course & Med Decision Making Course & Med Decision Making Pertinent Labs and Imaging studies reviewed. (See chart for details) Appears to be Dupuytren's contracture. Will splint for comfort and d/c home. (FRANTZ DAMON APRN) Course & Med Decision Making Staff Physician Addendum: I was working in the ER during the course of this patient's visit. I was available for consultation as needed, I did see this patient briefly (ANDREW MOCTEZUMA MD) Dragon Disclaimer Dragon Disclaimer This electronic medical record was generated, in whole or in part, using a voice recognition dictation system. (FRANTZ DAMON APRN) Departure Departure Impression: Primary Impression: Dupuytren's contracture Disposition: HOME, SELF-CARE Condition: STABLE Referrals: ANN KIRK (PCP) Patient Instructions: Dupuytren's Contracture Additional Instructions: Please follow up with hand surgeon as soon as possible. Return to ER as needed. FRANTZ DAMON APRN September 06, 2018 18:58 ANDREW MOCTEZUMA MD September 12, 2018 06:49
== END 2018-09-06 19:54 | disposition home or self-care (01) ==
LOC: ER 18:04
DX: M72.0 Palmar fascial fibromatosis [Dupuytren] (principal); E78.00 Pure hypercholesterolemia, unspecified; E11.9 Type 2 diabetes mellitus without complications; I10 Essential (primary) hypertension; Z86.14 Personal history of Methicillin resistant Staphylococcus aureus infection; Z88.1 Allergy status to other antibiotic agents; Z88.5 Allergy status to narcotic agent; Z88.6 Allergy status to analgesic agent; Z88.8 Allergy status to other drugs, medicaments and biological substances; Z91.018 Allergy to other foods
CPT/HCPCS: 29125; 99284-25

== ENCOUNTER 2018-09-11 16:26 | Inpatient (IN) | payer OTHER ==
[~2018-09-11] VITALS: Ht 175.3 cm; Wt 65.3 kg
[2018-09-11] MEDS ORDERED: ONDANSETRON PF 4 MG/2 ML VIAL. ONE (16:39)
[2018-09-11 16:57] LABS: BASO # 0.2 x10^3/uL (0.0-0.2); BASO % 1 % (0-3); EOS # 0.1 x10^3/uL (0.0-0.7); EOS % 1 % (0-3); HEMATOCRIT 38.9 % (36.0-47.0); HEMOGLOBIN 12.7 g/dL (12.0-15.5); LYMPH # 1.7 x10^3/uL (1.0-4.8); LYMPH % 12 % (24-48); MEAN CORPUSCULAR HEMOGLOBIN 27 pg (25-35); MEAN CORPUSCULAR HGB CONC 33 g/dL (31-37); MEAN CORPUSCULAR VOLUME 83 fL (79-100); MONO # 0.4 x10^3/uL (0.0-1.1); MONO % 3 % (0-9); NEUT % 84 % (31-73); PLATELET COUNT 330 x10^3/uL (140-400); RED BLOOD COUNT 4.69 x10^6/uL (3.50-5.40); RED CELL DISTRIBUTION WIDTH 12.9 % (11.5-14.5); WHITE BLOOD COUNT 14.3 x10^3/uL (4.0-11.0)
[2018-09-11] MEDS ORDERED: IV NORMAL SALINE 1000ML BAG 1,000 ML IV ONE ×2 (17:00→17:45)
[2018-09-11] MEDS ORDERED: ONDANSETRON PF 4 MG/2 ML VIAL. IM ONE (17:00)
--- NOTE | 2018-09-11 17:01 | PHYS DOC ---
Past Medical History Past Medical History: Diabetes-Type I, High Cholesterol, Hypertension, Hypothyroid, Stroke Additional Past Medical Histor: NEUROPATHY (RUFINO OLMOS APRN) Past Surgical History: Other Additional Past Surgical Histo: L BREAST L FOOT R KNEE (RUFINO OLMOS APRN) Alcohol Use: None Drug Use: None (RUFINO OLMOS APRN) Adult General Chief Complaint Chief Complaint: CHEST PAIN HPI HPI Patient is a 58 year old [female] who presents with [complaint of general malaise starting last night. Reports she has been vomiting on and off since last night. States that she is been shaking and just does not feel quite right. Reports she has not been able to eat or drink very much. Does report she has a history of diabetes with her blood sugar frequently fluctuating between 400s and 500s with a low of 80 normally. Reports she checked her blood sugar prior to coming in today and was for 30s. We'll treat yesterday morning was 80. Reports this normal she has been following up with endocrinology in the [facility] from 7030 insulin to basal insulin and rapid acting insulin. States pasta one hour ago she started to have some chest discomfort reports discomfort is just a pressure substernal. Has had similar pain in the past, reports last time she had this pain was when she had a stroke. Also reports she has a history of frequent low blood pressure has been having this issue for approximately one year, has history of [place]'s, has been managed with medication although she has had episodes where her systolic has been 50. Presently she is tachycardic at 115-130, systolic 120s. ] (RUFINO OLMOS APRN) Review of Systems Review of Systems Constitutional: Denies fever or chills [] Eyes: Denies change in visual acuity, redness, or eye pain [] HENT: Denies nasal congestion or sore throat [] Respiratory: Denies cough or shortness of breath [] Cardiovascular: No additional information not addressed in HPI [] GI: Denies abdominal pain, bloody stools or diarrhea. Does report nausea and vomiting. Has had 2 episodes of vomiting while in the ER [] : Denies dysuria or hematuria [] Musculoskeletal: Denies back pain or joint pain [does report she has had a tremor.] Integument: Denies rash does report multiple skin lesions to lower legs which have been there for a year family reports that they reduce appear better than normal. Reports this is due to her diabetes. [] Neurologic: Denies headache, focal weakness or sensory changes [] Endocrine: Denies polyuria or polydipsia [] All other systems were reviewed and found to be within normal limits, except as documented in this note. (RUFINO OLMOS APRN) Current Medications Current Medications Current Medications Medications (Trade) Dose Ordered Sig/[place] Start Time Stop Time Status Last Admin Dose Admin Metoclopramide HCl (Reglan Vial) 10 mg 1X ONCE 09/11/18 17:45 09/11/18 17:51 DC 09/11/18 17:50 10 MG Ondansetron HCl (Zofran) 4 mg 1X ONCE 09/11/18 17:30 09/11/18 17:31 DC 09/11/18 16:40 4 MG Sodium Chloride 1,000 ml @ 1,000 mls/hr 1X ONCE 09/11/18 17:45 09/11/18 18:44 DC 09/11/18 17:46 1,000 MLS/HR (FRANTZ MELISSA DO) Allergies Allergies Allergies Coded Allergies Type Severity Reaction Last Updated Verified hydroxyzine Allergy Severe DIZZINESS, "I FEEL LIKE IM DRUNK" 08/16/18 Yes raspberry Allergy Severe CHOKING SENSATION IN THROAT 10/25/15 Yes tramadol Allergy Severe VOMITING 08/16/18 Yes amoxicillin Allergy Intermediate 10/13/17 Yes aspirin Allergy Intermediate 10/13/17 Yes codeine Allergy Intermediate 10/13/17 Yes ibuprofen Allergy Intermediate 10/13/17 Yes morphine Allergy Intermediate 10/13/17 Yes (FRANTZ MELISSA DO) Physical Exam Physical Exam Constitutional: Frail, mildly tachypneic, pale, [] HENT: Normocephalic, atraumatic, bilateral external ears normal, oropharynx hui st, no oral exudates, nose normal. [] Eyes: PERRLA, EOMI, conjunctiva normal, no discharge. [] Neck: Normal range of motion, no tenderness, supple, no stridor. [] Cardiovascular:Heart rate tachycardic rhythm, no murmur [] Lungs & Thorax: Bilateral breath sounds clear to auscultation [] Abdomen: Bowel sounds normal, soft, no tenderness, no masses, no pulsatile masses. [] Skin: Warm, dry, no erythema. Several lesions to lower leg appear healing without noted cellulitis surrounding. Reports she has some on her back. Denies having any of her legs. [] Back: No tenderness, no CVA tenderness. [] Extremities: No tenderness, no cyanosis, no clubbing, ROM intact, no edema. [] Neurologic: Alert and oriented X 3, normal motor function, normal sensory function, no focal deficits noted. [] Psychologic: Affect normal, judgement normal, mood normal. [] (RUFINO OLMOS APRN) Current Patient Data Vital Signs Vital Signs Date Time Temp Pulse Resp B/P (MAP) Pulse Ox O2 Delivery O2 Flow Rate FiO2 09/11/18 18:38 118 18 163/81 (108) Room Air 09/11/18 17:51 96 09/11/18 16:30 97.1 97.1 (FRANTZ MELISSA DO) Lab Values Laboratory Tests Test 09/11/18 16:47 09/11/18 18:03 White Blood Count 14.3 x10^3/uL (4.0-11.0) H Red Blood Count 4.69 x10^6/uL (3.50-5.40) Hemoglobin 12.7 g/dL (12.0-15.5) Hematocrit 38.9 % (36.0-47.0) Mean Corpuscular Volume 83 fL (79-100) Mean Corpuscular Hemoglobin 27 pg (25-35) Mean Corpuscular Hemoglobin Concent 33 g/dL (31-37) Red Cell Distribution Width 12.9 % (11.5-14.5) Platelet Count 330 x10^3/uL (140-400) Neutrophils (%) (Auto) 84 % (31-73) H Lymphocytes (%) (Auto) 12 % (24-48) L Monocytes (%) (Auto) 3 % (0-9) Eosinophils (%) (Auto) 1 % (0-3) Basophils (%) (Auto) 1 % (0-3) Neutrophils # (Auto) 12.0 x10^3uL (1.8-7.7) H Lymphocytes # (Auto) 1.7 x10^3/uL (1.0-4.8) Monocytes # (Auto) 0.4 x10^3/uL (0.0-1.1) Eosinophils # (Auto) 0.1 x10^3/uL (0.0-0.7) Basophils # (Auto) 0.2 x10^3/uL (0.0-0.2) Prothrombin Time 13.3 SEC (11.7-14.0) Prothrombin Time INR 1.0 (0.8-1.1) Sodium Level 137 mmol/L (136-145) Potassium Level 4.2 mmol/L (3.5-5.1) Chloride Level 97 mmol/L (98-107) L Carbon Dioxide Level 32 mmol/L (21-32) Anion Gap 8 (6-14) Blood Urea Nitrogen 24 mg/dL (7-20) H Creatinine 1.0 mg/dL (0.6-1.0) Estimated GFR (Cockcroft-Gault) 57.4 BUN/Creatinine Ratio 24 (6-20) H Glucose Level 411 mg/dL (70-99) H Lactic Acid Level 2.2 mmol/L (0.4-2.0) H Calcium Level 10.1 mg/dL (8.5-10.1) Total Bilirubin 0.3 mg/dL (0.2-1.0) Aspartate Amino Transferase (AST) 17 U/L (15-37) Alanine Aminotransferase (ALT) 19 U/L (14-59) Alkaline Phosphatase 125 U/L (46-116) H Creatine Kinase 112 U/L (26-192) Creatine Kinase MB (Mass) 1.7 ng/mL (0.0-3.6) Creatine Kinase MB Relative Index 1.5 % (0-4) Troponin I Quantitative < 0.017 ng/mL (0.000-0.055) EM-Btg-N-Type Natriuretic Peptide 852 pg/mL (0-124) H Total Protein 8.3 g/dL (6.4-8.2) H Albumin 3.2 g/dL (3.4-5.0) L Albumin/Globulin Ratio 0.6 (1.0-1.7) L Thyroid Stimulating Hormone (TSH) 0.833 uIU/mL (0.358-3.74) Urine Collection Type Unknown Urine Color Yellow Urine Clarity Clear Urine pH 7.0 Urine Specific [place] 1.020 Urine Protein 100 mg/dL (NEG-TRACE) Urine Glucose (UA) >=1000 mg/dL (NEG) Urine Ketones (Stick) Negative mg/dL (NEG) Urine Blood Large (NEG) Urine Nitrite Positive (NEG) Urine Bilirubin Negative (NEG) Urine Urobilinogen Dipstick 0.2 mg/dL (0.2 mg/dL) Urine Leukocyte Esterase Moderate (NEG) Urine RBC 11-20 /HPF (0-2) Urine WBC Tntc /HPF (0-4) Urine Squamous Epithelial Cells Mod /LPF Urine Bacteria Many /HPF (0-FEW) Laboratory Tests 09/11/18 16:47 Laboratory Tests 09/11/18 16:47 (FRANTZ MELISSA DO) Lab Values Laboratory Tests Test 09/11/18 16:47 09/11/18 18:03 White Blood Count 14.3 x10^3/uL (4.0-11.0) H Red Blood Count 4.69 x10^6/uL (3.50-5.40) Hemoglobin 12.7 g/dL (12.0-15.5) Hematocrit 38.9 % (36.0-47.0) Mean Corpuscular Volume 83 fL (79-100) Mean Corpuscular Hemoglobin 27 pg (25-35) Mean Corpuscular Hemoglobin Concent 33 g/dL (31-37) Red Cell Distribution Width 12.9 % (11.5-14.5) Platelet Count 330 x10^3/uL (140-400) Neutrophils (%) (Auto) 84 % (31-73) H Lymphocytes (%) (Auto) 12 % (24-48) L Monocytes (%) (Auto) 3 % (0-9) Eosinophils (%) (Auto) 1 % (0-3) Basophils (%) (Auto) 1 % (0-3) Neutrophils # (Auto) 12.0 x10^3uL (1.8-7.7) H Lymphocytes # (Auto) 1.7 x10^3/uL (1.0-4.8) Monocytes # (Auto) 0.4 x10^3/uL (0.0-1.1) Eosinophils # (Auto) 0.1 x10^3/uL (0.0-0.7) Basophils # (Auto) 0.2 x10^3/uL (0.0-0.2) Prothrombin Time 13.3 SEC (11.7-14.0) Prothrombin Time INR 1.0 (0.8-1.1) Sodium Level 137 mmol/L (136-145) Potassium Level 4.2 mmol/L (3.5-5.1) Chloride Level 97 mmol/L (98-107) L Carbon Dioxide Level 32 mmol/L (21-32) Anion Gap 8 (6-14) Blood Urea Nitrogen 24 mg/dL (7-20) H Creatinine 1.0 mg/dL (0.6-1.0) Estimated GFR (Cockcroft-Gault) 57.4 BUN/Creatinine Ratio 24 (6-20) H Glucose Level 411 mg/dL (70-99) H Lactic Acid Level 2.2 mmol/L (0.4-2.0) H Calcium Level 10.1 mg/dL (8.5-10.1) Total Bilirubin 0.3 mg/dL (0.2-1.0) Aspartate Amino Transferase (AST) 17 U/L (15-37) Alanine Aminotransferase (ALT) 19 U/L (14-59) Alkaline Phosphatase 125 U/L (46-116) H Creatine Kinase 112 U/L (26-192) Creatine Kinase MB (Mass) 1.7 ng/mL (0.0-3.6) Creatine Kinase MB Relative Index 1.5 % (0-4) Troponin I Quantitative < 0.017 ng/mL (0.000-0.055) SA-Lex-S-Type Natriuretic Peptide 852 pg/mL (0-124) H Total Protein 8.3 g/dL (6.4-8.2) H Albumin 3.2 g/dL (3.4-5.0) L Albumin/Globulin Ratio 0.6 (1.0-1.7) L Thyroid Stimulating Hormone (TSH) 0.833 uIU/mL (0.358-3.74) Urine Collection Type Unknown Urine Color Yellow Urine Clarity Clear Urine pH 7.0 Urine Specific [place] 1.020 Urine Protein 100 mg/dL (NEG-TRACE) Urine Glucose (UA) >=1000 mg/dL (NEG) Urine Ketones (Stick) Negative mg/dL (NEG) Urine Blood Large (NEG) Urine Nitrite Positive (NEG) Urine Bilirubin Negative (NEG) Urine Urobilinogen Dipstick 0.2 mg/dL (0.2 mg/dL) Urine Leukocyte Esterase Moderate (NEG) Urine RBC 11-20 /HPF (0-2) Urine WBC Tntc /HPF (0-4) Urine Squamous Epithelial Cells Mod /LPF Urine Bacteria Many /HPF (0-FEW) Laboratory Tests 09/11/18 16:47 Laboratory Tests 09/11/18 16:47 (RUFINO OLMOS APRN) EKG EKG Sinus tachycardia, abnromal left axis deviation. No stemi noted. [] (RUFINO OLMOS APRN) Radiology/Procedures Radiology/Procedures Dr Melissa evaluates images, no noted acute findings, does not some mild thickening along bronchioles. [] (RUFINO OLMOS APRN) Course & Med Decision Making Course & Med Decision Making Pertinent Labs and Imaging studies reviewed. (See chart for details) @1800 Patient reporting she feels Less nausea and is feeling better after the nausea medicine. Has not had any further emesis at this time. @[address] Humphrey. [] (URFINO OLMOS APRN) Dragon Disclaimer Dragon Disclaimer This electronic medical record was generated, in whole or in part, using a voice recognition dictation system. (RUFINO OLMOS APRN) Departure Departure Impression: Primary Impression: Chest pain Additional Impressions: Hyperglycemia UTI (urinary tract infection) Disposition: ADMITTED INPATIENT Admitting Physician: Other (Kam) (FRANTZ MELISSA DO) Condition: STABLE Referrals: ANN KIRK (PCP) Attending Signature Attending Signature I have reviewed the PA/APPLICATION SUPPORT INTERN's note and plan of care. I was available for consultation as needed during the patient's visit in the emergency department. I agree with the clinical impression, plan, and disposition. (FRANTZ MELISSA DO) Problem Qualifiers Additional Impressions: UTI (urinary tract infection) Urinary tract infection type: acute cystitis Hematuria presence: without hematuria Qualified Codes: N30.00 - Acute cystitis without hematuria RUFINO OLMOS APRN September 11, 2018 17:01 FRANTZ MELISSA DO September 12, 2018 05:27
[2018-09-11 17:05] LABS: PROTHROMBIN TIME PATIENT 13.3 SEC (11.7-14.0)
[2018-09-11] MEDS ORDERED: ONDANSETRON PF 4 MG/2 ML VIAL. IV ONE (17:30)
[2018-09-11 17:31] LABS: CALCIUM 10.1 mg/dL (8.5-10.1); GFR 57.4; POTASSIUM 4.2 mmol/L (3.5-5.1)
[2018-09-11 17:40] LABS: ALBUMIN 3.2 g/dL (3.4-5.0); ALBUMIN/GLOBULIN RATIO 0.6 (1.0-1.7); TOTAL BILIRUBIN 0.3 mg/dL (0.2-1.0); TOTAL PROTEIN 8.3 g/dL (6.4-8.2)
[2018-09-11] MEDS ORDERED: METOCLOPRAMIDE HCL 10 MG/2 ML VIAL. IV ONE (17:45)
[2018-09-11 18:26] LABS: BILIRUBIN,URINE NEGATIVE (NEG); CLARITY,URINE CLEAR; COLOR,URINE YELLOW; NITRITE,URINE POSITIVE (NEG); PROTEIN,URINE 100 mg/dL (NEG-TRACE); UROBILINOGEN,URINE 0.2 mg/dL (0.2 mg/dL)
[2018-09-11 18:47] LABS: BACTERIA,URINE MANY /HPF (0-FEW); SQUAMOUS EPITHELIAL CELL,UR MOD /LPF; WBC,URINE TNTC /HPF (0-4)
[2018-09-11] MEDS ORDERED: ONDANSETRON PF 4 MG/2 ML VIAL. IV PRN (19:15)
[2018-09-11] MEDS ORDERED: DEXTROSE 50% 25 GM / 50ML DISP.SYRIN. IV PRN (20:15)
[2018-09-11 20:20] VITALS: BP 134/74
[2018-09-11] MEDS ORDERED: GABAPENTIN 300 MG CAPSULE. PO SCH (21:00)
[2018-09-11] MEDS ORDERED: INSULIN NPH/REG INSULIN 70/30 300 UNITS/3 ML INSULN.PEN. SQ SCH (21:00)
[2018-09-11] MEDS ORDERED: ATORVASTATIN CALCIUM 10 MG TABLET. PO SCH (21:00)
[2018-09-11] MEDS: cefTRIAXone IV Push 1 GM VIAL. IVP SCH (21:18)
[2018-09-11] MEDS: ACETAMINOPHEN 325 MG TABLET. PO PRN (21:18)
[2018-09-11] MEDS: AMITRIPTYLINE HCL 25 MG TABLET. PO SCH (21:19)
[2018-09-11 23:44] VITALS: BP 105/52
[2018-09-11 23:45] VITALS: BP 99/49
--- NOTE | 2018-09-12 01:13 | RAD ---
AP chest. HISTORY: Chest pain AP view was taken of the chest. Lungs are clear. Heart is normal in size without heart failure. There is no effusion. IMPRESSION: 1. No acute chest disease. Electronically signed by: Milton Valencia MD (09/12/2018 1:10 AM) [facility]
[2018-09-12 03:31] VITALS: BP 93/47
--- NOTE | 2018-09-12 05:22 | NUR ---
Patient was admitted from ED around 2018 last night. Patient was extremely exhausted when came up to unit. Patient c/o pain in chest area, pain medication given, effective. Patient slept well during night. This am around 0500 patient is having dry heaves, prn zofran given. Patients heart rhythm is ST, around 115. Patient states usually she is hypotensive. Patient refused to take lipitor stating she is allergic to it, discontinued, pt will be advised to bring home medication lovastatin.
[2018-09-12 07:00] VITALS: BP 116/61
[2018-09-12 07:12] LABS: BASO % 0 % (0-3); EOS % 0 % (0-3); HEMATOCRIT 35.3 % (36.0-47.0); HEMOGLOBIN 11.7 g/dL (12.0-15.5); LYMPH # 0.5 x10^3/uL (1.0-4.8); LYMPH % 6 % (24-48); MEAN CORPUSCULAR HEMOGLOBIN 28 pg (25-35); MEAN CORPUSCULAR HGB CONC 33 g/dL (31-37); MEAN CORPUSCULAR VOLUME 84 fL (79-100); MONO # 0.2 x10^3/uL (0.0-1.1); MONO % 2 % (0-9); NEUT # 8.2 x10^3uL (1.8-7.7); NEUT % 92 % (31-73); PLATELET COUNT 232 x10^3/uL (140-400); RED BLOOD COUNT 4.19 x10^6/uL (3.50-5.40); RED CELL DISTRIBUTION WIDTH 12.7 % (11.5-14.5); WHITE BLOOD COUNT 8.9 x10^3/uL (4.0-11.0)
--- NOTE | 2018-09-12 07:12 | EKG ---
[facility] [address] [place] [address] Test Date: 2018-09-11 Test Time: 16:51:07 Pat Name: TAYLOR SARAVIA Department: Room: [facility] Gender: F [employer] Member: [id number] : 1960 Requested By: RUFION OLMOS Order Number: [id number] Reading MD: Matt Mcgee Measurements Intervals [place] Rate: 110 P: 17 OR: 150 QRS: -59 QRSD: 82 T: 58 QT: 314 QTc: 430 Interpretive Statements SINUS TACHYCARDIA ABNORMAL LEFT AXIS DEVIATION LEFT ANTERIOR FASCICULAR BLOCK QRS(T) CONTOUR ABNORMALITY CONSISTENT WITH ANTEROSEPTAL INFARCT PROBABLY OLD ABNORMAL ECG Electronically Signed On 09-30-2018 12:49:53 CDT by Matt Mcgee
[2018-09-12 07:38] LABS: ALBUMIN 2.6 g/dL (3.4-5.0); ALBUMIN/GLOBULIN RATIO 0.6 (1.0-1.7); CALCIUM 9.1 mg/dL (8.5-10.1); CREATININE 0.9 mg/dL (0.6-1.0); GFR 64.8; TOTAL BILIRUBIN 0.3 mg/dL (0.2-1.0)
[2018-09-12] MEDS ORDERED: INSULIN LISPRO 300 UNITS/3 ML INSULN.PEN. SQ SCH (08:00)
[2018-09-12] MEDS ORDERED: IV NORMAL SALINE 1000ML BAG 1,000 ML IV ONE (08:00)
[2018-09-12] MEDS: INSULIN LISPRO 300 UNITS/3 ML INSULN.PEN. SQ SCH ×3 (08:00→17:00)
[2018-09-12] MEDS ORDERED: DEXTROSE 50% 25 GM / 50ML DISP.SYRIN. IV PRN (08:00)
[2018-09-12 08:54] LABS: % BANDS 18 % (0-9); % BASOS 2 % (0-3); % LYMPHS 9 % (24-48); % MONOS 1 % (0-10); % SEGS 70 % (35-66); PLT ESTIMATE ADEQUATE (ADEQUATE)
[2018-09-12] MEDS ORDERED: INSULIN NPH/REG INSULIN 70/30 300 UNITS/3 ML INSULN.PEN. SQ SCH (09:00)
[2018-09-12] MEDS: methIMAzole 10 MG TABLET PO SCH (09:28)
[2018-09-12] MEDS: FLUDROCORTISONE 0.1 MG TABLET PO SCH (09:28)
[2018-09-12 11:00] VITALS: BP 87/50
--- NOTE | 2018-09-12 11:26 | PDOC1 ---
History and Physical Date of Admission Date of Admission DATE: 09/12/18 TIME: 11:22 Identification/Chief Complaint Chief Complaint malaise vomiting, not feeling right Source Source: Caregiver, Chart review, Patient History of Present Illness History of Present Illness She is not the best historian, she is alone, and falls back to sleep but she rouses up on my voice Looking at chart she was admitted because of the above chief complaint, she has multiple allergies. She is an insulin diabetic on 70/30 at 45 units every morning and 15 daily at bedtime. She was febrile 101.6 yesterday or last night. She was tachycardic 115 to 130 but then again she is on Tapazole (hyperthy) She does have a UTI. Her white count is down to 8 from 14 from the ER, hemoglobin 11 with appropriate platelets 232. We're checking an A1c. I will give her one more fluid liter She did get about 2 or 3 bolus IVF at ER I believe her blood sugars was 400-500 on admission She claims she ate her breakfast but falls back to sleep Past Medical History Cardiovascular: Hyperlipidemia, Other Pulmonary: COPD CENTRAL NERVOUS SYSTEM: CVA, Periperal neuropathy GI: No pertinent hx Heme/Onc: No pertinent hx Hepatobiliary: No pertinent hx Psych: No pertinent hx Musculoskeletal: Osteoarthritis Rheumatologic: No pertinent hx Infectious disease: Other Renal/: No pertinent hx Endocrine: Diabetes, Hyperthyroidism Past Surgical History Past Surgical History: Other Family History Family History: Diabetes, Family History Unknown Social History Smoke: No ALCOHOL: none Drugs: None Current Problem List Problem List Problems Medical Problems: (1) Chest pain Status: Acute (2) Hyperglycemia Status: Acute (3) UTI (urinary tract infection) Status: Acute Current Medications Current Medications Current Medications Ondansetron HCl (Zofran) 4 mg STK-MED ONCE .ROUTE ; Start 09/11/18 at 16:39; Stop 09/11/18 at 16:40; Status Cancel Ondansetron HCl (Zofran) 4 mg 1X ONCE IM ; Start 09/11/18 at 17:00; Stop 09/11/18 at 17:01; Status DC Sodium Chloride 1,000 ml @ 1,000 mls/hr 1X ONCE IV Last administered on 09/11/18at 16:45; Start 09/11/18 at 17:00; Stop 09/11/18 at 17:59; Status DC Ondansetron HCl (Zofran) 4 mg 1X ONCE IV Last administered on 09/11/18at 16:40; Start 09/11/18 at 17:30; Stop 09/11/18 at 17:31; Status DC Sodium Chloride 1,000 ml @ 1,000 mls/hr 1X ONCE IV Last administered on 09/11/18at 17:46; Start 09/11/18 at 17:45; Stop 09/11/18 at 18:44; Status DC Metoclopramide HCl (Reglan Vial) 10 mg 1X ONCE IV Last administered on 09/11/18 at 17:50; Start 09/11/18 at 17:45; Stop 09/11/18 at 17:51; Status DC Ondansetron HCl (Zofran) 4 mg PRN Q8HRS PRN IV NAUSEA/VOMITING Last administered on 09/12/18at 04:46; Start 09/11/18 at 19:15; Stop 09/12/18 at 07:56; Status DC Acetaminophen (Tylenol) 650 mg PRN Q4HRS PRN PO FEVER Last administered on 09/11/18at 21:18; Start 09/11/18 at 19:15; Stop 09/13/18 at 19:13 Fludrocortisone Acetate (Florinef) 0.1 mg DAILY PO Last administered on 09/12/18at 09:28; Start 09/12/18 at 09:00 Gabapentin (Neurontin) 600 mg HS PO Last administered on 09/11/18at 21:18; Start 09/11/18 at 21:00 Amitriptyline HCl (Elavil) 100 mg QHS PO Last administered on 09/11/18at 21:19; Start 09/11/18 at 21:00 Insulin Human Isoph/Insulin Regular (HumuLIN 70/30) 15 units QHS SQ Last admi nistered on 09/11/18at 21:00; Start 09/11/18 at 21:00 Insulin Human Isoph/Insulin Regular (HumuLIN 70/30) 45 units DAILY SQ ; Start 09/12/18 at 09:00 Atorvastatin Calcium (Lipitor) 5 mg QHS PO ; Start 09/11/18 at 21:00; Stop 09/12/18 at 02:12; Status DC Methimazole (Tapazole) 5 mg DAILY08 PO Last administered on 09/12/18at 09:28; Start 09/12/18 at 08:00 Insulin Human Lispro (HumaLOG) 0-7 UNITS TIDWMEALS SQ ; Start 09/12/18 at 08:00; Stop 09/12/18 at 08:00; Status DC Dextrose (Dextrose 50%-Water Syringe) 12.5 gm PRN Q15MIN PRN IV SEE COMMENTS Last administered on 09/12/18at 08:05; Start 09/11/18 at 20:15 Ceftriaxone Sodium (Rocephin) 1 gm Q24H IVP Last administered on 09/11/18at 21:18; Start 09/11/18 at 21:00 Non-Formulary Medication 1 ea HS PO ; Start 09/12/18 at 21:00 Ondansetron HCl (Zofran) 4 mg PRN Q6HRS PRN IV NAUSEA/VOMITING; Start 09/12/18 at 08:00 Insulin Human Lispro (HumaLOG) 0-9 UNITS TIDWMEALS SQ ; Start 09/12/18 at 08:00 Dextrose (Dextrose 50%-Water Syringe) 12.5 gm PRN Q15MIN PRN IV SEE COMMENTS; Start 09/12/18 at 08:00 Sodium Chloride 1,000 ml @ 100 mls/hr 1X ONCE IV Last administered on 09/12/18at 09:28; Start 09/12/18 at 08:00; Stop 09/12/18 at 17:59 Active Scripts Active Fludrocortisone Acetate 0.1 Mg Tablet 0.1 Mg PO DAILY Reported Novolin 70-30 100 Unit/Ml Vial (Hum Insulin Nph/Reg Insulin Hm) 100 Unit/1 Ml Vial 15 Unit SQ HS Novolin 70-30 100 Unit/Ml Vial (Hum Insulin Nph/Reg Insulin Hm) 100 Unit/1 Ml Vial 45 Units SQ DAILY Lovastatin 10 Mg Tablet 10 Mg PO HS Methimazole 5 Mg Tablet 5 Mg PO DAILY08 Gabapentin (Gabapentin) 300 Mg Capsule 600 Mg PO HS Amitriptyline Hcl 100 Mg Tablet 1 Tab PO QHS Allergies Allergies: Coded Allergies: atorvastatin (Verified Allergy, Severe, throat swells, 09/12/18) hydroxyzine (Verified Allergy, Severe, DIZZINESS, "I FEEL LIKE IM DRUNK", 08/16/18) raspberry (Verified Allergy, Severe, CHOKING SENSATION IN THROAT, 10/25/15) tramadol (Verified Allergy, Severe, VOMITING, 08/16/18) amoxicillin (Verified Allergy, Intermediate, 10/13/17) aspirin (Verified Allergy, Intermediate, 10/13/17) codeine (Verified Allergy, Intermediate, 10/13/17) ibuprofen (Verified Allergy, Intermediate, 10/13/17) morphine (Verified Allergy, Intermediate, 10/13/17) ROS Review of System limited ROS, sleepy Physical Exam General: No acute distress HEENT: Atraumatic, PERRLA, EOMI Lungs: Clear to auscultation, Normal air movement Heart: S1S2, RRR, no thrills, no rubs, no gallops, no murmurs Cardiovascular: S1 Breasts: Normal, Rt breast nml w/o mass, Lt breast nml w/o mass, Nipples normal Abdomen: Normal bowel sounds, Soft, No tenderness, No hepatosplenomegaly, No masses Rectal Exam: not examined PELVIC: Nml ext genitalia Extremities: No clubbing, No cyanosis, No edema, Normal pulses, No tenderness/swelling Skin: No rashes, No breakdown, No significant lesion Psych/Mental Status: Mental status NL, Mood NL Vitals Vitals Vital Signs Date Time Temp Pulse Resp B/P (MAP) Pulse Ox O2 Delivery O2 Flow Rate FiO2 09/12/18 08:00 Room Air 09/12/18 07:00 100.9 111 16 116/61 (79) 93 100.9 Labs Labs Laboratory Tests Test 09/11/18 16:47 09/11/18 18:03 09/11/18 20:08 09/12/18 00:10 White Blood Count 14.3 x10^3/uL (4.0-11.0) Red Blood Count 4.69 x10^6/uL (3.50-5.40) Hemoglobin 12.7 g/dL (12.0-15.5) Hematocrit 38.9 % (36.0-47.0) Mean Corpuscular Volume 83 fL (79-100) Mean Corpuscular Hemoglobin 27 pg (25-35) Mean Corpuscular Hemoglobin Concent 33 g/dL (31-37) Red Cell Distribution Width 12.9 % (11.5-14.5) Platelet Count 330 x10^3/uL (140-400) Neutrophils (%) (Auto) 84 % (31-73) Lymphocytes (%) (Auto) 12 % (24-48) Monocytes (%) (Auto) 3 % (0-9) Eosinophils (%) (Auto) 1 % (0-3) Basophils (%) (Auto) 1 % (0-3) Neutrophils # (Auto) 12.0 x10^3uL (1.8-7.7) Lymphocytes # (Auto) 1.7 x10^3/uL (1.0-4.8) Monocytes # (Auto) 0.4 x10^3/uL (0.0-1.1) Eosinophils # (Auto) 0.1 x10^3/uL (0.0-0.7) Basophils # (Auto) 0.2 x10^3/uL (0.0-0.2) Prothrombin Time 13.3 SEC (11.7-14.0) Prothromb Time International Ratio 1.0 (0.8-1.1) Sodium Level 137 mmol/L (136-145) Potassium Level 4.2 mmol/L (3.5-5.1) Chloride Level 97 mmol/L (98-107) Carbon Dioxide Level 32 mmol/L (21-32) Anion Gap 8 (6-14) Blood Urea Nitrogen 24 mg/dL (7-20) Creatinine 1.0 mg/dL (0.6-1.0) Estimated GFR (Cockcroft-Gault) 57.4 BUN/Creatinine Ratio 24 (6-20) Glucose Level 411 mg/dL (70-99) Lactic Acid Level 2.2 mmol/L (0.4-2.0) Calcium Level 10.1 mg/dL (8.5-10.1) Total Bilirubin 0.3 mg/dL (0.2-1.0) Aspartate Amino Transf (AST/SGOT) 17 U/L (15-37) Alanine Aminotransferase (ALT/SGPT) 19 U/L (14-59) Alkaline Phosphatase 125 U/L (46-116) Creatine Kinase 112 U/L (26-192) Creatine Kinase MB (Mass) 1.7 ng/mL (0.0-3.6) Creatine Kinase MB Relative Index 1.5 % (0-4) Troponin I Quantitative < 0.017 ng/mL (0.000-0.055) < 0.017 ng/mL (0.000-0.055) [id number]-Type Natriuretic Peptide 852 pg/mL (0-124) Total Protein 8.3 g/dL (6.4-8.2) Albumin 3.2 g/dL (3.4-5.0) Albumin/Globulin Ratio 0.6 (1.0-1.7) Thyroid Stimulating Hormone (TSH) 0.833 uIU/mL (0.358-3.74) Urine Collection Type Unknown Urine Color Yellow Urine Clarity Clear Urine pH 7.0 Urine Specific [place] 1.020 Urine Protein 100 mg/dL (NEG-TRACE) Urine Glucose (UA) >=1000 mg/dL (NEG) Urine Ketones (Stick) Negative mg/dL (NEG) Urine Blood Large (NEG) Urine Nitrite Positive (NEG) Urine Bilirubin Negative (NEG) Urine Urobilinogen Dipstick 0.2 mg/dL (0.2 mg/dL) Urine Leukocyte Esterase Moderate (NEG) Urine RBC 11-20 /HPF (0-2) Urine WBC Tntc /HPF (0-4) Urine Squamous Epithelial Cells Mod /LPF Urine Bacteria Many /HPF (0-FEW) Glucose (Fingerstick) 241 mg/dL (70-99) Test 09/12/18 05:48 09/12/18 07:43 09/12/18 08:21 White Blood Count 8.9 x10^3/uL (4.0-11.0) Red Blood Count 4.19 x10^6/uL (3.50-5.40) Hemoglobin 11.7 g/dL (12.0-15.5) Hematocrit 35.3 % (36.0-47.0) Mean Corpuscular Volume 84 fL (79-100) Mean Corpuscular Hemoglobin 28 pg (25-35) Mean Corpuscular Hemoglobin Concent 33 g/dL (31-37) Red Cell Distribution Width 12.7 % (11.5-14.5) Platelet Count 232 x10^3/uL (140-400) Neutrophils (%) (Auto) 92 % (31-73) Lymphocytes (%) (Auto) 6 % (24-48) Monocytes (%) (Auto) 2 % (0-9) Eosinophils (%) (Auto) 0 % (0-3) Basophils (%) (Auto) 0 % (0-3) Neutrophils # (Auto) 8.2 x10^3uL (1.8-7.7) Lymphocytes # (Auto) 0.5 x10^3/uL (1.0-4.8) Monocytes # (Auto) 0.2 x10^3/uL (0.0-1.1) Eosinophils # (Auto) 0.0 x10^3/uL (0.0-0.7) Basophils # (Auto) 0.0 x10^3/uL (0.0-0.2) Segmented Neutrophils % 70 % (35-66) Band Neutrophils % 18 % (0-9) Lymphocytes % 9 % (24-48) Monocytes % 1 % (0-10) Basophils % 2 % (0-3) Platelet Estimate Adequate (ADEQUATE) Sodium Level 139 mmol/L (136-145) Potassium Level 4.0 mmol/L (3.5-5.1) Chloride Level 104 mmol/L (98-107) Carbon Dioxide Level 25 mmol/L (21-32) Anion Gap 10 (6-14) Blood Urea Nitrogen 25 mg/dL (7-20) Creatinine 0.9 mg/dL (0.6-1.0) Estimated GFR (Cockcroft-Gault) 64.8 BUN/Creatinine Ratio 28 (6-20) Glucose Level 55 mg/dL (70-99) Calcium Level 9.1 mg/dL (8.5-10.1) Total Bilirubin 0.3 mg/dL (0.2-1.0) Aspartate Amino Transf (AST/SGOT) 22 U/L (15-37) Alanine Aminotransferase (ALT/SGPT) 14 U/L (14-59) Alkaline Phosphatase 104 U/L (46-116) Troponin I Quantitative < 0.017 ng/mL (0.000-0.055) Total Protein 7.0 g/dL (6.4-8.2) Albumin 2.6 g/dL (3.4-5.0) Albumin/Globulin Ratio 0.6 (1.0-1.7) Glucose (Fingerstick) 47 mg/dL (70-99) 127 mg/dL (70-99) Laboratory Tests Test 09/11/18 16:47 09/11/18 18:03 09/11/18 20:08 09/12/18 00:10 White Blood Count 14.3 x10^3/uL (4.0-11.0) Red Blood Count 4.69 x10^6/uL (3.50-5.40) Hemoglobin 12.7 g/dL (12.0-15.5) Hematocrit 38.9 % (36.0-47.0) Mean Corpuscular Volume 83 fL (79-100) Mean Corpuscular Hemoglobin 27 pg (25-35) Mean Corpuscular Hemoglobin Concent 33 g/dL (31-37) Red Cell Distribution Width 12.9 % (11.5-14.5) Platelet Count 330 x10^3/uL (140-400) Neutrophils (%) (Auto) 84 % (31-73) Lymphocytes (%) (Auto) 12 % (24-48) Monocytes (%) (Auto) 3 % (0-9) Eosinophils (%) (Auto) 1 % (0-3) Basophils (%) (Auto) 1 % (0-3) Neutrophils # (Auto) 12.0 x10^3uL (1.8-7.7) Lymphocytes # (Auto) 1.7 x10^3/uL (1.0-4.8) Monocytes # (Auto) 0.4 x10^3/uL (0.0-1.1) Eosinophils # (Auto) 0.1 x10^3/uL (0.0-0.7) Basophils # (Auto) 0.2 x10^3/uL (0.0-0.2) Prothrombin Time 13.3 SEC (11.7-14.0) Prothromb Time International Ratio 1.0 (0.8-1.1) Sodium Level 137 mmol/L (136-145) Potassium Level 4.2 mmol/L (3.5-5.1) Chloride Level 97 mmol/L (98-107) Carbon Dioxide Level 32 mmol/L (21-32) Anion Gap 8 (6-14) Blood Urea Nitrogen 24 mg/dL (7-20) Creatinine 1.0 mg/dL (0.6-1.0) Estimated GFR (Cockcroft-Gault) 57.4 BUN/Creatinine Ratio 24 (6-20) Glucose Level 411 mg/dL (70-99) Lactic Acid Level 2.2 mmol/L (0.4-2.0) Calcium Level 10.1 mg/dL (8.5-10.1) Total Bilirubin 0.3 mg/dL (0.2-1.0) Aspartate Amino Transf (AST/SGOT) 17 U/L (15-37) Alanine Aminotransferase (ALT/SGPT) 19 U/L (14-59) Alkaline Phosphatase 125 U/L (46-116) Creatine Kinase 112 U/L (26-192) Creatine Kinase MB (Mass) 1.7 ng/mL (0.0-3.6) Creatine Kinase MB Relative Index 1.5 % (0-4) Troponin I Quantitative < 0.017 ng/mL (0.000-0.055) < 0.017 ng/mL (0.000-0.055) HG-Dmq-B-Type Natriuretic Peptide 852 pg/mL (0-124) Total Protein 8.3 g/dL (6.4-8.2) Albumin 3.2 g/dL (3.4-5.0) Albumin/Globulin Ratio 0.6 (1.0-1.7) Thyroid Stimulating Hormone (TSH) 0.833 uIU/mL (0.358-3.74) Urine Collection Type Unknown Urine Color Yellow Urine Clarity Clear Urine pH 7.0 Urine Specific [place] 1.020 Urine Protein 100 mg/dL (NEG-TRACE) Urine Glucose (UA) >=1000 mg/dL (NEG) Urine Ketones (Stick) Negative mg/dL (NEG) Urine Blood Large (NEG) Urine Nitrite Positive (NEG) Urine Bilirubin Negative (NEG) Urine Urobilinogen Dipstick 0.2 mg/dL (0.2 mg/dL) Urine Leukocyte Esterase Moderate (NEG) Urine RBC 11-20 /HPF (0-2) Urine WBC Tntc /HPF (0-4) Urine Squamous Epithelial Cells Mod /LPF Urine Bacteria Many /HPF (0-FEW) Glucose (Fingerstick) 241 mg/dL (70-99) Test 09/12/18 05:48 09/12/18 07:43 09/12/18 08:21 White Blood Count 8.9 x10^3/uL (4.0-11.0) Red Blood Count 4.19 x10^6/uL (3.50-5.40) Hemoglobin 11.7 g/dL (12.0-15.5) Hematocrit 35.3 % (36.0-47.0) Mean Corpuscular Volume 84 fL (79-100) Mean Corpuscular Hemoglobin 28 pg (25-35) Mean Corpuscular Hemoglobin Concent 33 g/dL (31-37) Red Cell Distribution Width 12.7 % (11.5-14.5) Platelet Count 232 x10^3/uL (140-400) Neutrophils (%) (Auto) 92 % (31-73) Lymphocytes (%) (Auto) 6 % (24-48) Monocytes (%) (Auto) 2 % (0-9) Eosinophils (%) (Auto) 0 % (0-3) Basophils (%) (Auto) 0 % (0-3) Neutrophils # (Auto) 8.2 x10^3uL (1.8-7.7) Lymphocytes # (Auto) 0.5 x10^3/uL (1.0-4.8) Monocytes # (Auto) 0.2 x10^3/uL (0.0-1.1) Eosinophils # (Auto) 0.0 x10^3/uL (0.0-0.7) Basophils # (Auto) 0.0 x10^3/uL (0.0-0.2) Segmented Neutrophils % 70 % (35-66) Band Neutrophils % 18 % (0-9) Lymphocytes % 9 % (24-48) Monocytes % 1 % (0-10) Basophils % 2 % (0-3) Platelet Estimate Adequate (ADEQUATE) Sodium Level 139 mmol/L (136-145) Potassium Level 4.0 mmol/L (3.5-5.1) Chloride Level 104 mmol/L (98-107) Carbon Dioxide Level 25 mmol/L (21-32) Anion Gap 10 (6-14) Blood Urea Nitrogen 25 mg/dL (7-20) Creatinine 0.9 mg/dL (0.6-1.0) Estimated GFR (Cockcroft-Gault) 64.8 BUN/Creatinine Ratio 28 (6-20) Glucose Level 55 mg/dL (70-99) Calcium Level 9.1 mg/dL (8.5-10.1) Total Bilirubin 0.3 mg/dL (0.2-1.0) Aspartate Amino Transf (AST/SGOT) 22 U/L (15-37) Alanine Aminotransferase (ALT/SGPT) 14 U/L (14-59) Alkaline Phosphatase 104 U/L (46-116) Troponin I Quantitative < 0.017 ng/mL (0.000-0.055) Total Protein 7.0 g/dL (6.4-8.2) Albumin 2.6 g/dL (3.4-5.0) Albumin/Globulin Ratio 0.6 (1.0-1.7) Glucose (Fingerstick) 47 mg/dL (70-99) 127 mg/dL (70-99) VTE Prophylaxis Ordered VTE Prophylaxis Devices: Yes VTE Pharmacological Prophylaxi: Yes Assessment/Plan Assessment/Plan HO NK with no coma Encephalopathy, metabolic secondary to HO NKA DM uncontrolled on 70/30 insulin UTI in a diabetic Sepsis POA, febrile, leukocytosis Multiple allergies PLAN: abx in this UTI in a diabetic check A1c IV fluid Resume home insulin regimen PT OT Will DC once more awake, has ambulated, and we have a preliminary at least of the urine culture REGINA DAVID MD September 12, 2018 11:26
[2018-09-12] MEDS ORDERED: IV NORMAL SALINE 500ML BAG 500 ML IV ONE (12:00)
[2018-09-12 12:50] LABS: FREE T4 1.03 ng/dL (0.76-1.46)
[2018-09-12 15:00] VITALS: BP 100/59
[2018-09-12 19:10] VITALS: BP 135/75
[2018-09-12] MEDS: LOVASTATIN PO SCH (21:00)
[2018-09-12] MEDS: cefTRIAXone IV Push 1 GM VIAL. IVP SCH (21:25)
[2018-09-12] MEDS: AMITRIPTYLINE HCL 25 MG TABLET. PO SCH (21:25)
[2018-09-12] MEDS: LACTOBACILLUS RHAMNOSUS GG 1 CAPSULE. PO SCH (21:25)
[2018-09-12] MEDS ORDERED: INSU100I32 SQ (21:59)
[2018-09-12 23:05] VITALS: BP 143/86
[2018-09-13 03:05] VITALS: BP 134/73
[2018-09-13 04:03] LABS: BASO % 0 % (0-3); EOS # 0.1 x10^3/uL (0.0-0.7); EOS % 1 % (0-3); HEMATOCRIT 31.4 % (36.0-47.0); LYMPH # 1.5 x10^3/uL (1.0-4.8); LYMPH % 13 % (24-48); MEAN CORPUSCULAR HEMOGLOBIN 27 pg (25-35); MEAN CORPUSCULAR HGB CONC 32 g/dL (31-37); MEAN CORPUSCULAR VOLUME 83 fL (79-100); MONO % 9 % (0-9); NEUT # 9.3 x10^3uL (1.8-7.7); NEUT % 78 % (31-73); PLATELET COUNT 214 x10^3/uL (140-400); RED BLOOD COUNT 3.76 x10^6/uL (3.50-5.40); RED CELL DISTRIBUTION WIDTH 12.9 % (11.5-14.5)
[2018-09-13 07:00] VITALS: BP 113/74
[2018-09-13] MEDS: INSULIN LISPRO 300 UNITS/3 ML INSULN.PEN. SQ SCH ×3 (08:00→17:00)
[2018-09-13] MEDS: LACTOBACILLUS RHAMNOSUS GG 1 CAPSULE. PO SCH ×2 (09:09→20:42)
[2018-09-13] MEDS: FLUDROCORTISONE 0.1 MG TABLET PO SCH (09:09)
[2018-09-13] MEDS: methIMAzole 10 MG TABLET PO SCH (09:10)
[2018-09-13] MEDS: BASAGLAR SQ SCH (09:11)
--- NOTE | 2018-09-13 10:11 | PDOC ---
PROGRESS NOTES Chief Complaint Chief Complaint HO NK with no coma, RESOLVED Encephalopathy, metabolic secondary to HO NK - RESOLVED DM uncontrolled on 70/30 insulin UTI in a diabetic Sepsis POA, febrile, leukocytosis Multiple allergies History of Present Illness History of Present Illness cont to have low-grade fevers WBC 12 ESR mildly elevated blood pressure and blood sugars are better TSH normal, cortisol normal. No need to check ammonia she is wide awake Plan: In the light that she continues to have low-grade temperatures and WBC 12, she is agreeable to stay until I have urine cultures. Urine cultures were just sent out 09/12/2018 in the evening to lab [facility] Vitals Vitals Vital Signs Date Time Temp Pulse Resp B/P (MAP) Pulse Ox O2 Delivery O2 Flow Rate FiO2 09/13/18 07:00 98.4 99 16 113/74 (87) 92 Room Air 98.4 Physical Exam General: Alert, Oriented X3, Cooperative, No acute distress Heart: Regular rate, Normal S1, Normal S2 Lungs: Clear Abdomen: Normal bowel sounds, Soft, No tenderness, No hepatosplenomegaly, No masses Extremities: No clubbing, No cyanosis, No edema, Normal pulses, No tenderness/swelling Skin: No rashes, No breakdown, No significant lesion Labs LABS Laboratory Tests Test 09/12/18 11:52 09/12/18 12:00 09/12/18 15:43 09/12/18 16:56 Glucose (Fingerstick) 158 mg/dL (70-99) 259 mg/dL (70-99) 230 mg/dL (70-99) Troponin I Quantitative < 0.017 ng/mL (0.000-0.055) Free Thyroxine 1.03 ng/dL (0.76-1.46) Free Triiodothyronine (T3) pg/mL 1.02 pg/mL (2.18-3.98) Test 09/12/18 21:00 09/13/18 02:30 09/13/18 07:31 Glucose (Fingerstick) 192 mg/dL (70-99) 144 mg/dL (70-99) White Blood Count 12.0 x10^3/uL (4.0-11.0) Red Blood Count 3.76 x10^6/uL (3.50-5.40) Hemoglobin 10.0 g/dL (12.0-15.5) Hematocrit 31.4 % (36.0-47.0) Mean Corpuscular Volume 83 fL (79-100) Mean Corpuscular Hemoglobin 27 pg (25-35) Mean Corpuscular Hemoglobin Concent 32 g/dL (31-37) Red Cell Distribution Width 12.9 % (11.5-14.5) Platelet Count 214 x10^3/uL (140-400) Neutrophils (%) (Auto) 78 % (31-73) Lymphocytes (%) (Auto) 13 % (24-48) Monocytes (%) (Auto) 9 % (0-9) Eosinophils (%) (Auto) 1 % (0-3) Basophils (%) (Auto) 0 % (0-3) Neutrophils # (Auto) 9.3 x10^3uL (1.8-7.7) Lymphocytes # (Auto) 1.5 x10^3/uL (1.0-4.8) Monocytes # (Auto) 1.0 x10^3/uL (0.0-1.1) Eosinophils # (Auto) 0.1 x10^3/uL (0.0-0.7) Basophils # (Auto) 0.0 x10^3/uL (0.0-0.2) Erythrocyte Sedimentation Rate 82 (0-25) Cortisol AM Sample 11.4 ug/dL (4.3-22.4) Review of Systems Review of Systems A 14 point ROS was completed with the following noted as positive: Other systems reviewed and negative. \CONSTITUTIONAL: No fever or chills EYES: No recent changes SKIN: No rash or itching CARDIOVASCULAR: No chest pain, syncope, palpitations, or edema RESPIRATORY: No SOB or cough GASTROINTESTINAL: No nausea, vomiting or abdominal pain NEUROLOGICAL: No headaches or weakness ENDOCRINE: No cold or heat intolerance GENITOURINARY: No urgency or frequency of urination MUSCULOSKELETAL: No back pain or joint pain LYMPHATICS: No enlarged lymph nodes PSYCHIATRIC: No anxiety or depression Assessment and Plan Assessmemt and Plan Problems Medical Problems: (1) Chest pain Status: Acute (2) Hyperglycemia Status: Acute (3) UTI (urinary tract infection) Status: Acute Comment Review of Relevant I have reviewed the following items zurdo (where applicable) has been applied. Labs Laboratory Tests Test 09/11/18 16:47 09/11/18 18:03 09/11/18 20:08 09/12/18 00:10 White Blood Count 14.3 x10^3/uL (4.0-11.0) Red Blood Count 4.69 x10^6/uL (3.50-5.40) Hemoglobin 12.7 g/dL (12.0-15.5) Hematocrit 38.9 % (36.0-47.0) Mean Corpuscular Volume 83 fL (79-100) Mean Corpuscular Hemoglobin 27 pg (25-35) Mean Corpuscular Hemoglobin Concent 33 g/dL (31-37) Red Cell Distribution Width 12.9 % (11.5-14.5) Platelet Count 330 x10^3/uL (140-400) Neutrophils (%) (Auto) 84 % (31-73) Lymphocytes (%) (Auto) 12 % (24-48) Monocytes (%) (Auto) 3 % (0-9) Eosinophils (%) (Auto) 1 % (0-3) Basophils (%) (Auto) 1 % (0-3) Neutrophils # (Auto) 12.0 x10^3uL (1.8-7.7) Lymphocytes # (Auto) 1.7 x10^3/uL (1.0-4.8) Monocytes # (Auto) 0.4 x10^3/uL (0.0-1.1) Eosinophils # (Auto) 0.1 x10^3/uL (0.0-0.7) Basophils # (Auto) 0.2 x10^3/uL (0.0-0.2) Prothrombin Time 13.3 SEC (11.7-14.0) Prothromb Time International Ratio 1.0 (0.8-1.1) Sodium Level 137 mmol/L (136-145) Potassium Level 4.2 mmol/L (3.5-5.1) Chloride Level 97 mmol/L (98-107) Carbon Dioxide Level 32 mmol/L (21-32) Anion Gap 8 (6-14) Blood Urea Nitrogen 24 mg/dL (7-20) Creatinine 1.0 mg/dL (0.6-1.0) Estimated GFR (Cockcroft-Gault) 57.4 BUN/Creatinine Ratio 24 (6-20) Glucose Level 411 mg/dL (70-99) Lactic Acid Level 2.2 mmol/L (0.4-2.0) Calcium Level 10.1 mg/dL (8.5-10.1) Total Bilirubin 0.3 mg/dL (0.2-1.0) Aspartate Amino Transf (AST/SGOT) 17 U/L (15-37) Alanine Aminotransferase (ALT/SGPT) 19 U/L (14-59) Alkaline Phosphatase 125 U/L (46-116) Creatine Kinase 112 U/L (26-192) Creatine Kinase MB (Mass) 1.7 ng/mL (0.0-3.6) Creatine Kinase MB Relative Index 1.5 % (0-4) Troponin I Quantitative < 0.017 ng/mL (0.000-0.055) < 0.017 ng/mL (0.000-0.055) BZ-Sfy-[id number]-Type Natriuretic Peptide 852 pg/mL (0-124) Total Protein 8.3 g/dL (6.4-8.2) Albumin 3.2 g/dL (3.4-5.0) Albumin/Globulin Ratio 0.6 (1.0-1.7) Thyroid Stimulating Hormone (TSH) 0.833 uIU/mL (0.358-3.74) Urine Collection Type Unknown Urine Color Yellow Urine Clarity Clear Urine pH 7.0 Urine Specific [place] 1.020 Urine Protein 100 mg/dL (NEG-TRACE) Urine Glucose (UA) >=1000 mg/dL (NEG) Urine Ketones (Stick) Negative mg/dL (NEG) Urine Blood Large (NEG) Urine Nitrite Positive (NEG) Urine Bilirubin Negative (NEG) Urine Urobilinogen Dipstick 0.2 mg/dL (0.2 mg/dL) Urine Leukocyte Esterase Moderate (NEG) Urine RBC 11-20 /HPF (0-2) Urine WBC Tntc /HPF (0-4) Urine Squamous Epithelial Cells Mod /LPF Urine Bacteria Many /HPF (0-FEW) Glucose (Fingerstick) 241 mg/dL (70-99) Test 09/12/18 05:48 09/12/18 07:43 09/12/18 08:21 09/12/18 11:52 White Blood Count 8.9 x10^3/uL (4.0-11.0) Red Blood Count 4.19 x10^6/uL (3.50-5.40) Hemoglobin 11.7 g/dL (12.0-15.5) Hematocrit 35.3 % (36.0-47.0) Mean Corpuscular Volume 84 fL (79-100) Mean Corpuscular Hemoglobin 28 pg (25-35) Mean Corpuscular Hemoglobin Concent 33 g/dL (31-37) Red Cell Distribution Width 12.7 % (11.5-14.5) Platelet Count 232 x10^3/uL (140-400) Neutrophils (%) (Auto) 92 % (31-73) Lymphocytes (%) (Auto) 6 % (24-48) Monocytes (%) (Auto) 2 % (0-9) Eosinophils (%) (Auto) 0 % (0-3) Basophils (%) (Auto) 0 % (0-3) Neutrophils # (Auto) 8.2 x10^3uL (1.8-7.7) Lymphocytes # (Auto) 0.5 x10^3/uL (1.0-4.8) Monocytes # (Auto) 0.2 x10^3/uL (0.0-1.1) Eosinophils # (Auto) 0.0 x10^3/uL (0.0-0.7) Basophils # (Auto) 0.0 x10^3/uL (0.0-0.2) Segmented Neutrophils % 70 % (35-66) Band Neutrophils % 18 % (0-9) Lymphocytes % 9 % (24-48) Monocytes % 1 % (0-10) Basophils % 2 % (0-3) Platelet Estimate Adequate (ADEQUATE) Sodium Level 139 mmol/L (136-145) Potassium Level 4.0 mmol/L (3.5-5.1) Chloride Level 104 mmol/L (98-107) Carbon Dioxide Level 25 mmol/L (21-32) Anion Gap 10 (6-14) Blood Urea Nitrogen 25 mg/dL (7-20) Creatinine 0.9 mg/dL (0.6-1.0) Estimated GFR (Cockcroft-Gault) 64.8 BUN/Creatinine Ratio 28 (6-20) Glucose Level 55 mg/dL (70-99) Calcium Level 9.1 mg/dL (8.5-10.1) Total Bilirubin 0.3 mg/dL (0.2-1.0) Aspartate Amino Transf (AST/SGOT) 22 U/L (15-37) Alanine Aminotransferase (ALT/SGPT) 14 U/L (14-59) Alkaline Phosphatase 104 U/L (46-116) Troponin I Quantitative < 0.017 ng/mL (0.000-0.055) Total Protein 7.0 g/dL (6.4-8.2) Albumin 2.6 g/dL (3.4-5.0) Albumin/Globulin Ratio 0.6 (1.0-1.7) Glucose (Fingerstick) 47 mg/dL (70-99) 127 mg/dL (70-99) 158 mg/dL (70-99) Test 09/12/18 12:00 09/12/18 15:43 09/12/18 16:56 09/12/18 21:00 Troponin I Quantitative < 0.017 ng/mL (0.000-0.055) Free Thyroxine 1.03 ng/dL (0.76-1.46) Free Triiodothyronine (T3) pg/mL 1.02 pg/mL (2.18-3.98) Glucose (Fingerstick) 259 mg/dL (70-99) 230 mg/dL (70-99) 192 mg/dL (70-99) Test 09/13/18 02:30 09/13/18 07:31 White Blood Count 12.0 x10^3/uL (4.0-11.0) Red Blood Count 3.76 x10^6/uL (3.50-5.40) Hemoglobin 10.0 g/dL (12.0-15.5) Hematocrit 31.4 % (36.0-47.0) Mean Corpuscular Volume 83 fL (79-100) Mean Corpuscular Hemoglobin 27 pg (25-35) Mean Corpuscular Hemoglobin Concent 32 g/dL (31-37) Red Cell Distribution Width 12.9 % (11.5-14.5) Platelet Count 214 x10^3/uL (140-400) Neutrophils (%) (Auto) 78 % (31-73) Lymphocytes (%) (Auto) 13 % (24-48) Monocytes (%) (Auto) 9 % (0-9) Eosinophils (%) (Auto) 1 % (0-3) Basophils (%) (Auto) 0 % (0-3) Neutrophils # (Auto) 9.3 x10^3uL (1.8-7.7) Lymphocytes # (Auto) 1.5 x10^3/uL (1.0-4.8) Monocytes # (Auto) 1.0 x10^3/uL (0.0-1.1) Eosinophils # (Auto) 0.1 x10^3/uL (0.0-0.7) Basophils # (Auto) 0.0 x10^3/uL (0.0-0.2) Erythrocyte Sedimentation Rate 82 (0-25) Cortisol AM Sample 11.4 ug/dL (4.3-22.4) Glucose (Fingerstick) 144 mg/dL (70-99) Laboratory Tests Test 09/12/18 11:52 09/12/18 12:00 09/12/18 15:43 09/12/18 16:56 Glucose (Fingerstick) 158 mg/dL (70-99) 259 mg/dL (70-99) 230 mg/dL (70-99) Troponin I Quantitative < 0.017 ng/mL (0.000-0.055) Free Thyroxine 1.03 ng/dL (0.76-1.46) Free Triiodothyronine (T3) pg/mL 1.02 pg/mL (2.18-3.98) Test 09/12/18 21:00 09/13/18 02:30 09/13/18 07:31 Glucose (Fingerstick) 192 mg/dL (70-99) 144 mg/dL (70-99) White Blood Count 12.0 x10^3/uL (4.0-11.0) Red Blood Count 3.76 x10^6/uL (3.50-5.40) Hemoglobin 10.0 g/dL (12.0-15.5) Hematocrit 31.4 % (36.0-47.0) Mean Corpuscular Volume 83 fL (79-100) Mean Corpuscular Hemoglobin 27 pg (25-35) Mean Corpuscular Hemoglobin Concent 32 g/dL (31-37) Red Cell Distribution Width 12.9 % (11.5-14.5) Platelet Count 214 x10^3/uL (140-400) Neutrophils (%) (Auto) 78 % (31-73) Lymphocytes (%) (Auto) 13 % (24-48) Monocytes (%) (Auto) 9 % (0-9) Eosinophils (%) (Auto) 1 % (0-3) Basophils (%) (Auto) 0 % (0-3) Neutrophils # (Auto) 9.3 x10^3uL (1.8-7.7) Lymphocytes # (Auto) 1.5 x10^3/uL (1.0-4.8) Monocytes # (Auto) 1.0 x10^3/uL (0.0-1.1) Eosinophils # (Auto) 0.1 x10^3/uL (0.0-0.7) Basophils # (Auto) 0.0 x10^3/uL (0.0-0.2) Erythrocyte Sedimentation Rate 82 (0-25) Cortisol AM Sample 11.4 ug/dL (4.3-22.4) Medications Current Medications Ondansetron HCl (Zofran) 4 mg STK-MED ONCE .ROUTE ; Start 09/11/18 at 16:39; Stop 09/11/18 at 16:40; Status Cancel Ondansetron HCl (Zofran) 4 mg 1X ONCE IM ; Start 09/11/18 at 17:00; Stop 09/11/18 at 17:01; Status DC Sodium Chloride 1,000 ml @ 1,000 mls/hr 1X ONCE IV Last administered on 09/11/18at 16:45; Start 09/11/18 at 17:00; Stop 09/11/18 at 17:59; Status DC Ondansetron HCl (Zofran) 4 mg 1X ONCE IV Last administered on 09/11/18at 16:40; Start 09/11/18 at 17:30; Stop 09/11/18 at 17:31; Status DC Sodium Chloride 1,000 ml @ 1,000 mls/hr 1X ONCE IV Last administered on 09/11/18at 17:46; Start 09/11/18 at 17:45; Stop 09/11/18 at 18:44; Status DC Metoclopramide HCl (Reglan Vial) 10 mg 1X ONCE IV Last administered on 09/11/18at 17:50; Start 09/11/18 at 17:45; Stop 09/11/18 at 17:51; Status DC Ondansetron HCl (Zofran) 4 mg PRN Q8HRS PRN IV NAUSEA/VOMITING Last administered on 09/12/18at 04:46; Start 09/11/18 at 19:15; Stop 09/12/18 at 07:56; Status DC Acetaminophen (Tylenol) 650 mg PRN Q4HRS PRN PO FEVER Last administered on 09/11/18at 21:18; Start 09/11/18 at 19:15; Stop 09/13/18 at 19:13 Fludrocortisone Acetate (Florinef) 0.1 mg DAILY PO Last administered on 09/13/18at 09:09; Start 09/12/18 at 09:00 Gabapentin (Neurontin) 600 mg HS PO Last administered on 09/11/18at 21:18; Start 09/11/18 at 21:00; Stop 09/12/18 at 11:27; Status DC Amitriptyline HCl (Elavil) 100 mg QHS PO Last administered on 09/12/18at 21:25; Start 09/11/18 at 21:00 Insulin Human Isoph/Insulin Regular (HumuLIN 70/30) 15 units QHS SQ Last administered on 09/11/18at 21:00; Start 09/11/18 at 21:00; Stop 09/12/18 at 23:00; Status DC Insulin Human Isoph/Insulin Regular (HumuLIN 70/30) 45 units DAILY SQ ; Start 09/12/18 at 09:00; Stop 09/12/18 at 14:53; Status DC Atorvastatin Calcium (Lipitor) 5 mg QHS PO ; Start 09/11/18 at 21:00; Stop 09/12/18 at 02:12; Status DC Methimazole (Tapazole) 5 mg DAILY08 PO Last administered on 09/13/18at 09:10; Start 09/12/18 at 08:00 Insulin Human Lispro (HumaLOG) 0-7 UNITS TIDWMEALS SQ ; Start 09/12/18 at 08:00; Stop 09/12/18 at 08:00; Status DC Dextrose (Dextrose 50%-Water Syringe) 12.5 gm PRN Q15MIN PRN IV SEE COMMENTS Last administered on 09/12/18at 08:05; Start 09/11/18 at 20:15 Ceftriaxone Sodium (Rocephin) 1 gm Q24H IVP Last administered on 09/12/18at 21 :25; Start 09/11/18 at 21:00 Non-Formulary Medication 1 ea HS PO ; Start 09/12/18 at 21:00 Ondansetron HCl (Zofran) 4 mg PRN Q6HRS PRN IV NAUSEA/VOMITING; Start 09/12/18 at 08:00 Insulin Human Lispro (HumaLOG) 0-9 UNITS TIDWMEALS SQ Last administered on 09/12/18at 17:00; Start 09/12/18 at 08:00 Dextrose (Dextrose 50%-Water Syringe) 12.5 gm PRN Q15MIN PRN IV SEE COMMENTS; Start 09/12/18 at 08:00; Status Cancel Sodium Chloride 1,000 ml @ 100 mls/hr 1X ONCE IV Last administered on 09/12/18at 09:28; Start 09/12/18 at 08:00; Stop 09/12/18 at 17:59; Status DC Sodium Chloride 500 ml @ 500 mls/hr 1X ONCE IV Last administered on 09/12/18at 12:00; Start 09/12/18 at 12:00; Stop 09/12/18 at 12:59; Status DC Lactobacillus Rhamnosus (Culturelle) 1 cap BID PO Last administered on 09/13/18at 09:09; Start 09/12/18 at 21:00 Non-Formulary Medication 45 ea DAILY08 SQ Last administered on 09/13/18at 09:11; Start 09/13/18 at 08:00 Active Scripts Active Fludrocortisone Acetate 0.1 Mg Tablet 0.1 Mg PO DAILY Reported Yamileth Crowley U-100 (Insulin Glargine,Hum.rec.anlog) 100 Unit/1 Ml Insuln.pen 45 Unit SQ DAILY08 Novolin 70-30 100 Unit/Ml Vial (Hum Insulin Nph/Reg Insulin Hm) 100 Unit/1 Ml Vial 15 Unit SQ HS Novolin 70-30 100 Unit/Ml Vial (Hum Insulin Nph/Reg Insulin Hm) 100 Unit/1 Ml Vial 45 Units SQ DAILY Lovastatin 10 Mg Tablet 10 Mg PO HS Methimazole 5 Mg Tablet 5 Mg PO DAILY08 Gabapentin (Gabapentin) 300 Mg Capsule 600 Mg PO HS Amitriptyline Hcl 100 Mg Tablet 1 Tab PO QHS Vitals/I & O Vital Sign - Last 24 Hours 09/12/18 09/12/18 09/12/18 09/12/18 11:00 15:00 19:10 20:00 Temp 100.0 100.0 98.7 100.0 100.0 98.7 Pulse 97 94 96 Resp 16 16 16 B/P (MAP) 87/50 (62) 100/59 (73) 135/75 (95) Pulse Ox 98 97 98 O2 Delivery Room Air Room Air Room Air Room Air 09/12/18 09/13/18 09/13/18 23:05 03:05 07:00 Temp 99.6 99.0 98.4 99.6 99.0 98.4 Pulse 102 93 99 Resp 16 16 16 B/P (MAP) 143/86 (105) 134/73 (93) 113/74 (87) Pulse Ox 95 92 92 O2 Delivery Room Air Room Air Room Air Intake and Output0 09/12/18 09/12/18 09/13/18 14:59 22:59 06:59 Intake Total 240 ml 1810 ml Balance 240 ml 1810 ml REGINA DAVID MD September 13, 2018 10:11
[2018-09-13] MEDS ORDERED: PIP/TAZO PER PHARMACY MC PRN (10:15)
[2018-09-13 10:41] LABS: CALCIUM 8.4 mg/dL (8.5-10.1); GFR 57.4; MAGNESIUM 1.6 mg/dL (1.8-2.4); POTASSIUM 4.3 mmol/L (3.5-5.1)
[2018-09-13 11:00] VITALS: BP 118/72
[2018-09-13] MEDS: PIPERACILLIN/TAZOBACTAM 3.375 GM in IV NORMAL SALINE 50ML 50 ML IV SCH ×3 (12:13→23:29)
[2018-09-13 13:17] LABS: HEMOGLOBIN A1C 13.4 % (4.8-5.6)
[2018-09-13] MEDS: ONDANSETRON PF 4 MG/2 ML VIAL. IV PRN (13:48)
[2018-09-13] MEDS: ACETAMINOPHEN 325 MG TABLET. PO PRN (13:48)
[2018-09-13] MEDS ORDERED: MAGNESIUM SULFATE 1GM 100 ML IV ONE (14:00)
[2018-09-13 15:00] VITALS: BP 129/75
--- NOTE | 2018-09-13 15:06 | NUR ---
SW consulted for dc needs. Chart reviewed. PT/OT recommends acute rehab. SW spoke with pt about options and discussed rehab, SNU vs HH. 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 Pt also declined home health as she plans on going back to work and can't be home bound. Discussed with RN.
--- NOTE | 2018-09-13 15:08 | NUR ---
SW following pt. Insurance auth for [facility] pending. Pt is having a video swallow today. Discussed with RN and Dr. James.
[2018-09-13 19:10] VITALS: BP 128/75
[2018-09-13] MEDS: LOVASTATIN PO SCH (20:42)
[2018-09-13] MEDS: AMITRIPTYLINE HCL 25 MG TABLET. PO SCH (20:42)
[2018-09-13] MEDS ORDERED: ACETAMINOPHEN 325 MG TABLET. PO PRN (21:00)
[2018-09-13 23:10] VITALS: BP 130/72
[2018-09-14 03:10] VITALS: BP 133/76
[2018-09-14] MEDS: PIPERACILLIN/TAZOBACTAM 3.375 GM in IV NORMAL SALINE 50ML 50 ML IV SCH ×2 (05:24→11:36)
[2018-09-14 07:03] VITALS: BP 147/81
[2018-09-14] MEDS: ONDANSETRON PF 4 MG/2 ML VIAL. IV PRN (07:52)
[2018-09-14] MEDS: BASAGLAR SQ SCH (07:54)
[2018-09-14] MEDS: methIMAzole 10 MG TABLET PO SCH (07:54)
[2018-09-14] MEDS: LACTOBACILLUS RHAMNOSUS GG 1 CAPSULE. PO SCH (07:55)
[2018-09-14] MEDS: INSULIN LISPRO 300 UNITS/3 ML INSULN.PEN. SQ SCH ×2 (07:55→11:34)
[2018-09-14] MEDS: FLUDROCORTISONE 0.1 MG TABLET PO SCH (07:55)
[2018-09-14 10:27] VITALS: BP 172/91
--- NOTE | 2018-09-14 10:37 | PDOC ---
PROGRESS NOTES Chief Complaint Chief Complaint HO NK with no coma, RESOLVED Encephalopathy, metabolic secondary to HO NK - RESOLVED DM uncontrolled on 70 insulin E coli UTI in a diabetic Sepsis POA, febrile, leukocytosis Multiple allergies History of Present Illness History of Present Illness Last fever temp Nontoxic appearing-just had a shower Feels well and no complaints Urine culture preliminary out, Escherichia coli UTI but sensitivity still pending Blood sugars are much better with the current regimen-came in HONK with no coma PLAN: Agreeable to stay overnight to wait for sensitivities Hopefully sensitivities will be out tomorrow and I can DC home then Vitals Vitals Vital Signs Date Time Temp Pulse Resp B/P (MAP) Pulse Ox O2 Delivery O2 Flow Rate FiO2 09/14/18 10:27 98.1 99 18 172/91 (118) 97 Room Air 98.1 Physical Exam General: Alert, Oriented X3, Cooperative, No acute distress Heart: Regular rate, Normal S1, Normal S2 Lungs: Clear Abdomen: Normal bowel sounds, Soft, No tenderness, No hepatosplenomegaly, No masses Extremities: No clubbing, No cyanosis, No edema, Normal pulses, No tenderness/swelling Skin: No rashes, No breakdown, No significant lesion Labs LABS Laboratory Tests Test 09/13/18 11:05 09/13/18 11:55 09/13/18 17:09 09/13/18 20:55 Glucose (Fingerstick) 234 mg/dL (70-99) 80 mg/dL (70-99) 179 mg/dL (70-99) Lactic Acid Level 0.7 mmol/L (0.4-2.0) Test 09/14/18 07:18 Glucose (Fingerstick) 102 mg/dL (70-99) Review of Systems Review of Systems A 14 point ROS was completed with the following noted as positive: Other systems reviewed and negative. \CONSTITUTIONAL: No fever or chills EYES: No recent changes SKIN: No rash or itching CARDIOVASCULAR: No chest pain, syncope, palpitations, or edema RESPIRATORY: No SOB or cough GASTROINTESTINAL: No nausea, vomiting or abdominal pain NEUROLOGICAL: No headaches or weakness ENDOCRINE: No cold or heat intolerance GENITOURINARY: No urgency or frequency of urination MUSCULOSKELETAL: No back pain or joint pain LYMPHATICS: No enlarged lymph nodes PSYCHIATRIC: No anxiety or depression Assessment and Plan Assessmemt and Plan Problems Medical Problems: (1) Chest pain Status: Acute (2) Hyperglycemia Status: Acute (3) UTI (urinary tract infection) Status: Acute Comment Review of Relevant I have reviewed the following items zurdo (where applicable) has been applied. Labs Laboratory Tests Test 09/12/18 11:52 09/12/18 12:00 09/12/18 15:43 09/12/18 16:56 Glucose (Fingerstick) 158 mg/dL (70-99) 259 mg/dL (70-99) 230 mg/dL (70-99) Troponin I Quantitative < 0.017 ng/mL (0.000-0.055) Free Thyroxine 1.03 ng/dL (0.76-1.46) Free Triiodothyronine (T3) pg/mL 1.02 pg/mL (2.18-3.98) Test 09/12/18 21:00 09/13/18 02:30 09/13/18 07:31 09/13/18 09:40 Glucose (Fingerstick) 192 mg/dL (70-99) 144 mg/dL (70-99) White Blood Count 12.0 x10^3/uL (4.0-11.0) Red Blood Count 3.76 x10^6/uL (3.50-5.40) Hemoglobin 10.0 g/dL (12.0-15.5) Hematocrit 31.4 % (36.0-47.0) Mean Corpuscular Volume 83 fL (79-100) Mean Corpuscular Hemoglobin 27 pg (25-35) Mean Corpuscular Hemoglobin Concent 32 g/dL (31-37) Red Cell Distribution Width 12.9 % (11.5-14.5) Platelet Count 214 x10^3/uL (140-400) Neutrophils (%) (Auto) 78 % (31-73) Lymphocytes (%) (Auto) 13 % (24-48) Monocytes (%) (Auto) 9 % (0-9) Eosinophils (%) (Auto) 1 % (0-3) Basophils (%) (Auto) 0 % (0-3) Neutrophils # (Auto) 9.3 x10^3uL (1.8-7.7) Lymphocytes # (Auto) 1.5 x10^3/uL (1.0-4.8) Monocytes # (Auto) 1.0 x10^3/uL (0.0-1.1) Eosinophils # (Auto) 0.1 x10^3/uL (0.0-0.7) Basophils # (Auto) 0.0 x10^3/uL (0.0-0.2) Erythrocyte Sedimentation Rate 82 (0-25) Cortisol AM Sample 11.4 ug/dL (4.3-22.4) Sodium Level 136 mmol/L (136-145) Potassium Level 4.3 mmol/L (3.5-5.1) Chloride Level 100 mmol/L (98-107) Carbon Dioxide Level 30 mmol/L (21-32) Anion Gap 6 (6-14) Blood Urea Nitrogen 29 mg/dL (7-20) Creatinine 1.0 mg/dL (0.6-1.0) Estimated GFR (Cockcroft-Gault) 57.4 Glucose Level 282 mg/dL (70-99) Calcium Level 8.4 mg/dL (8.5-10.1) Magnesium Level 1.6 mg/dL (1.8-2.4) Ammonia < 10 mcmol/L (11-34) Test 09/13/18 11:05 09/13/18 11:55 09/13/18 17:09 09/13/18 20:55 Glucose (Fingerstick) 234 mg/dL (70-99) 80 mg/dL (70-99) 179 mg/dL (70-99) Lactic Acid Level 0.7 mmol/L (0.4-2.0) Test 09/14/18 07:18 Glucose (Fingerstick) 102 mg/dL (70-99) Laboratory Tests Test 09/13/18 11:05 09/13/18 11:55 09/13/18 17:09 09/13/18 20:55 Glucose (Fingerstick) 234 mg/dL (70-99) 80 mg/dL (70-99) 179 mg/dL (70-99) Lactic Acid Level 0.7 mmol/L (0.4-2.0) Test 09/14/18 07:18 Glucose (Fingerstick) 102 mg/dL (70-99) Microbiology 09/11/18 Urine Culture - Preliminary, Resulted 09/11/18 Urine Culture Result 1 (GALILEA) - Preliminary, Resulted Medications Current Medications Ondansetron HCl (Zofran) 4 mg STK-MED ONCE .ROUTE ; Start 09/11/18 at 16:39; Stop 09/11/18 at 16:40; Status Cancel Ondansetron HCl (Zofran) 4 mg 1X ONCE IM ; Start 09/11/18 at 17:00; Stop 09/11/18 at 17:01; Status DC Sodium Chloride 1,000 ml @ 1,000 mls/hr 1X ONCE IV Last administered on 09/11/18at 16:45; Start 09/11/18 at 17:00; Stop 09/11/18 at 17:59; Status DC Ondansetron HCl (Zofran) 4 mg 1X ONCE IV Last administered on 09/11/18at 16:40; Start 09/11/18 at 17:30; Stop 09/11/18 at 17:31; Status DC Sodium Chloride 1,000 ml @ 1,000 mls/hr 1X ONCE IV Last administered on 09/11/18at 17:46; Start 09/11/18 at 17:45; Stop 09/11/18 at 18:44; Status DC Metoclopramide HCl (Reglan Vial) 10 mg 1X ONCE IV Last administered on 09/11/18at 17:50; Start 09/11/18 at 17:45; Stop 09/11/18 at 17:51; Status DC Ondansetron HCl (Zofran) 4 mg PRN Q8HRS PRN IV NAUSEA/VOMITING Last administered on 09/12/18at 04:46; Start 09/11/18 at 19:15; Stop 09/12/18 at 07:56; Status DC Acetaminophen (Tylenol) 650 mg PRN Q4HRS PRN PO FEVER Last administered on 09/13/18 13:48; Start 09/11/18 at 19:15; Stop 09/13/18 at 19:13; Status DC Fludrocortisone Acetate (Florinef) 0.1 mg DAILY PO Last administered on 08/25 05/14at 09:09; Start 09/12/18 at 09:00 Gabapentin (Neurontin) 600 mg HS PO Last administered on 09/11/18 21:18; Start 09/11/18 at 21:00; Stop 09/12/18 at 11:27; Status DC Amitriptyline HCl (Elavil) 100 mg QHS PO Last administered on 09/13/18at 20:42; Start 09/11/18 at 21:00 Insulin Human Isoph/Insulin Regular (HumuLIN 70/30) 15 units QHS SQ Last administered on 09/11/18at 21:00; Start 09/11/18 at 21:00; Stop 09/12/18 at 23:00; Status DC Insulin Human Isoph/Insulin Regular (HumuLIN 70/30) 45 units DAILY SQ ; Start 09/12/18 at 09:00; Stop 09/12/18 at 14:53; Status DC Atorvastatin Calcium (Lipitor) 5 mg QHS PO ; Start 09/11/18 at 21:00; Stop 09/12/18 at 02:12; Status DC Methimazole (Tapazole) 5 mg DAILY08 PO Last administered on 09/13/18at 09:10; Start 09/12/18 at 08:00 Insulin Human Lispro (HumaLOG) 0-7 UNITS TIDWMEALS SQ ; Start 09/12/18 at 08:00; Stop 09/12/18 at 08:00; Status DC Dextrose (Dextrose 50%-Water Syringe) 12.5 gm PRN Q15MIN PRN IV SEE COMMENTS Last administered on 09/12/18at 08:05; Start 09/11/18 at 20:15 Ceftriaxone Sodium (Rocephin) 1 gm Q24H IVP Last administered on 09/12/18at 21:25; Start 09/11/18 at 21:00; Stop 09/13/18 at 10:12; Status DC Non-Formulary Medication 1 ea HS PO ; Start 09/12/18 at 21:00 Ondansetron HCl (Zofran) 4 mg PRN Q6HRS PRN IV NAUSEA/VOMITING Last administered on 09/14/18at 07:52; Start 09/12/18 at 08:00 Insulin Human Lispro (HumaLOG) 0-9 UNITS TIDWMEALS SQ Last administered on 09/13/18at 12:19; Start 09/12/18 at 08:00 Dextrose (Dextrose 50%-Water Syringe) 12.5 gm PRN Q15MIN PRN IV SEE COMMENTS; Start 09/12/18 at 08:00; Status Cancel Sodium Chloride 1,000 ml @ 100 mls/hr 1X ONCE IV Last administered on 09/12/18at 09:28; Start 09/12/18 at 08:00; Stop 09/12/18 at 17:59; Status DC Sodium Chloride 500 ml @ 500 mls/hr 1X ONCE IV Last administered on 09/12/18at 12:00; Start 09/12/18 at 12:00; Stop 09/12/18 at 12:59; Status DC Lactobacillus Rhamnosus (Culturelle) 1 cap BID PO Last administered on 09/13/18at 20:42; Start 09/12/18 at 21:00 Non-Formulary Medication 45 ea DAILY08 SQ Last administered on 09/13/18at 09:11; Start 09/13/18 at 08:00 Piperacillin Sod/ Tazobactam Sod (Zosyn Per Pharmacy) 1 each PRN DAILY PRN MC SEE COMMENTS; Start 09/13/18 at 10:15 Piperacillin Sod/ Tazobactam Sod 3.375 gm/Sodium Chloride 50 ml @ 100 mls/hr Q6HRS IV Last administered on 09/14/18at 05:24; Start 09/13/18 at 11:01 Magnesium Sulfate/ Dextrose 100 ml @ 100 mls/hr 1X ONCE IV Last administered on 09/13/18at 13:53; Start 09/13/18 at 14:00; Stop 09/13/18 at 14:59; Status DC Acetaminophen (Tylenol) 325 mg PRN Q6HRS PRN PO MILD PAIN / TEMP Last administered on 09/13/18at 21:03; Start 09/13/18 at 21:00 Active Scripts Active Fludrocortisone Acetate 0.1 Mg Tablet 0.1 Mg PO DAILY Reported Radhaagleva Nashpen U-100 (Insulin Glargine,Hum.rec.anlog) 100 Unit/1 Ml Insuln.pen 45 Unit SQ DAILY08 Novolin 70-30 100 Unit/Ml Vial (Hum Insulin Nph/Reg Insulin Hm) 100 Unit/1 Ml Vial 15 Unit SQ HS Novolin 70-30 100 Unit/Ml Vial (Hum Insulin Nph/Reg Insulin Hm) 100 Unit/1 Ml Vial 45 Units SQ DAILY Lovastatin 10 Mg Tablet 10 Mg PO HS Methimazole 5 Mg Tablet 5 Mg PO DAILY08 Gabapentin (Gabapentin) 300 Mg Capsule 600 Mg PO HS Amitriptyline Hcl 100 Mg Tablet 1 Tab PO QHS Vitals/I & O Vital Sign - Last 24 Hours 09/13/18 09/13/18 09/13/18 09/13/18 11:00 15:00 19:10 20:12 Temp 98.6 99.9 99.4 98.6 99.9 99.4 Pulse 97 101 93 Resp 16 16 18 B/P (MAP) 118/72 (87) 129/75 (93) 128/75 (92) Pulse Ox 100 95 94 O2 Delivery Room Air Room Air Room Air Room Air 09/13/18 09/14/18 09/14/18 09/14/18 23:10 03:10 07:03 10:27 Temp 98.6 98.0 98.2 98.1 98.6 98.0 98.2 98.1 Pulse 99 88 96 99 Resp 18 18 17 18 B/P (MAP) 130/72 (91) 133/76 (95) 147/81 (103) 172/91 (118) Pulse Ox 93 96 96 97 O2 Delivery Room Air Room Air Room Air Room Air Intake and Output 0 09/13/18 09/13/18 09/14/18 15:00 23:00 07:00 Intake Total 720 ml 650 ml 250 ml Balance 720 ml 650 ml 250 ml REGINA DAVID MD September 14, 2018 10:37
--- NOTE | 2018-09-14 12:20 | NUR ---
ASSUMED PATIENT CARE AT THIS TIME, PATIENT ALERT AND VERBALLY RESPONSIVE, C/O SLIGHT HEADACHE AND REQUESTS TO HAVE THE BLINDS CLOSED IN HER ROOM, BUT DOES NOT WANT PAIN MEDS AT THIS TIME, EMOTIONAL SUPPORT GIVEN, BLINDS CLOSED WELL DOOR TO ROOM, WILL MONITOR.
[2018-09-14] MEDS ORDERED: CEPH-264 PO (13:36)
--- NOTE | 2018-09-14 13:38 | PDOC3 ---
Discharge Summary Visit Information Date of Admission: September 12, 2018 Date of Discharge: September 14, 2018 Admitting Diagnosis Comment: HO NK with no coma, RESOLVED Encephalopathy, metabolic secondary to HO NK - RESOLVED DM uncontrolled on insulin E coli UTI in a diabetic Sepsis POA, febrile, leukocytosis Multiple allergies Final Diagnosis Problems Medical Problems: (1) Chest pain Status: Acute (2) Hyperglycemia Status: Acute (3) UTI (urinary tract infection) Status: Acute Brief Hospital Course Allergies Allergies Coded Allergies Type Severity Reaction Last Updated Verified atorvastatin Allergy Severe throat swells 09/12/18 Yes hydroxyzine Allergy Severe DIZZINESS, "I FEEL LIKE IM DRUNK" 08/16/18 Yes raspberry Allergy Severe CHOKING SENSATION IN THROAT 10/25/15 Yes tramadol Allergy Severe VOMITING 08/16/18 Yes amoxicillin Allergy Intermediate 10/13/17 Yes aspirin Allergy Intermediate 10/13/17 Yes codeine Allergy Intermediate 10/13/17 Yes ibuprofen Allergy Intermediate 10/13/17 Yes morphine Allergy Intermediate 10/13/17 Yes Vital Signs Vital Signs Date Time Temp Pulse Resp B/P (MAP) Pulse Ox O2 Delivery O2 Flow Rate FiO2 09/14/18 10:27 98.1 99 18 172/91 (118) 97 Room Air 98.1 Lab Results Laboratory Tests Test 09/12/18 15:43 09/12/18 16:56 09/12/18 21:00 09/13/18 02:30 Glucose (Fingerstick) 259 mg/dL (70-99) 230 mg/dL (70-99) 192 mg/dL (70-99) White Blood Count 12.0 x10^3/uL (4.0-11.0) Red Blood Count 3.76 x10^6/uL (3.50-5.40) Hemoglobin 10.0 g/dL (12.0-15.5) Hematocrit 31.4 % (36.0-47.0) Mean Corpuscular Volume 83 fL (79-100) Mean Corpuscular Hemoglobin 27 pg (25-35) Mean Corpuscular Hemoglobin Concent 32 g/dL (31-37) Red Cell Distribution Width 12.9 % (11.5-14.5) Platelet Count 214 x10^3/uL (140-400) Neutrophils (%) (Auto) 78 % (31-73) Lymphocytes (%) (Auto) 13 % (24-48) Monocytes (%) (Auto) 9 % (0-9) Eosinophils (%) (Auto) 1 % (0-3) Basophils (%) (Auto) 0 % (0-3) Neutrophils # (Auto) 9.3 x10^3uL (1.8-7.7) Lymphocytes # (Auto) 1.5 x10^3/uL (1.0-4.8) Monocytes # (Auto) 1.0 x10^3/uL (0.0-1.1) Eosinophils # (Auto) 0.1 x10^3/uL (0.0-0.7) Basophils # (Auto) 0.0 x10^3/uL (0.0-0.2) Erythrocyte Sedimentation Rate 82 (0-25) Cortisol AM Sample 11.4 ug/dL (4.3-22.4) Test 09/13/18 07:31 09/13/18 09:40 09/13/18 11:05 09/13/18 11:55 Glucose (Fingerstick) 144 mg/dL (70-99) 234 mg/dL (70-99) Sodium Level 136 mmol/L (136-145) Potassium Level 4.3 mmol/L (3.5-5.1) Chloride Level 100 mmol/L (98-107) Carbon Dioxide Level 30 mmol/L (21-32) Anion Gap 6 (6-14) Blood Urea Nitrogen 29 mg/dL (7-20) Creatinine 1.0 mg/dL (0.6-1.0) Estimated GFR (Cockcroft-Gault) 57.4 Glucose Level 282 mg/dL (70-99) Calcium Level 8.4 mg/dL (8.5-10.1) Magnesium Level 1.6 mg/dL (1.8-2.4) Ammonia < 10 mcmol/L (11-34) Lactic Acid Level 0.7 mmol/L (0.4-2.0) Test 09/13/18 17:09 09/13/18 20:55 09/14/18 07:18 09/14/18 11:12 Glucose (Fingerstick) 80 mg/dL (70-99) 179 mg/dL (70-99) 102 mg/dL (70-99) 118 mg/dL (70-99) Laboratory Tests Test 09/13/18 17:09 09/13/18 20:55 09/14/18 07:18 09/14/18 11:12 Glucose (Fingerstick) 80 mg/dL (70-99) 179 mg/dL (70-99) 102 mg/dL (70-99) 118 mg/dL (70-99) Brief Hospital Course Ms. Wright is a 58 old F came in with HONK and uTI, some confusion initially, resolved once BS better. E coli uti on culture and pCN sensitive. CAn get keflex to home, AMox as allergy but was tolerating rocephin and zosyn fine Discharge Information Condition at Discharge: Improved, Stable Disposition/Orders: D/C to Home Scheduled Amitriptyline Hcl (Amitriptyline Hcl) 100 Mg Tablet, 1 TAB PO QHS for neuropat hy, (Reported) Entered as Reported by: INNA SETHI on 06/07/182234 Last Action: Converted on 09/11/181957 by JUAN PABLO WANG MD Fludrocortisone Acetate (Fludrocortisone Acetate) 0.1 Mg Tablet, 0.1 MG PO DAILY, #30 Prescribed by: PAT MCCOY on 11/08/17 0950 Last Action: Continued on 09/11/181957 by JUAN PABLO WANG MD Gabapentin (Gabapentin ) 300 Mg Capsule, 600 MG PO HS for NEUROGENIC PAIN, (Reported) Entered as Reported by: INNA SETHI on 06/07/182234 Last Action: Continued on 09/11/181957 by JUAN PABLO WANG MD Hum Insulin Nph/Reg Insulin Hm (Novolin 70-30 100 Unit/Ml Vial) 100 Unit/1 Ml Vial, 45 UNITS SQ DAILY for blood glucose, (Reported) Entered as Reported by: Lucho Loya on 08/23/182143 Last Action: Converted on 09/11/181957 by JUAN PABLO WANG MD Hum Insulin Nph/Reg Insulin Hm (Novolin 70-30 100 Unit/Ml Vial) 100 Unit/1 Ml Vial, 15 UNIT SQ HS for blood glucose, (Reported) Entered as Reported by: Lucho Loya on 08/23/182145 Last Action: Converted on 09/11/181957 by JUAN PABLO WANG MD Insulin Glargine,Hum.rec.anlog (Basaglar Kwikpen U-100) 100 Unit/1 Ml Insuln.pen, 45 UNIT SQ DAILY08 for Diabetes, (Reported) Entered as Reported by: LEVI COLLIER on 09/12/182158 Last Action: New Order on 09/12/182158 by LEVI COLLIER Lovastatin (Lovastatin) 10 Mg Tablet, 10 MG PO HS for cholsterol, (Reported) Entered as Reported by: Lucho Loya on 08/23/182143 Last Action: Converted on 09/11/181957 by JUAN PABLO WANG MD Methimazole (Methimazole) 5 Mg Tablet, 5 MG PO DAILY08 for hyperthyroid, (Reported) Entered as Reported by: INNA SETHI on 06/07/182234 Last Action: Converted on 09/11/181957 by MD JOANN SHERIDAN CHERRIE Y MD September 14, 2018 13:38
--- NOTE | 2018-09-14 13:45 | NUR ---
RECEIVED A CALL FROM DR. DAVID INFORMING THIS RESIDENTIAL ASSISTANT THAT THE PATIENT WOULD BE DISCHARGED TO HOME ON [facility] THERAPY, WILL INFORM PATIENT AND BEGIN THE DISCHARGE PROCESS.
== END 2018-09-14 16:10 | disposition home or self-care (01) | DRG 871 ==
LOC: ER 16:26 → 1 WEST ICU 18:55 → 6 SOUTH 19:52 → 5 NORTH 09-14 12:31
PROVIDERS: ADMIT Internal Medicine; ATTEND Internal Medicine
DX: A41.9 Sepsis, unspecified organism (principal); E11.00 Type 2 diabetes mellitus with hyperosmolarity without nonketotic hyperglycemic-hyperosmolar coma (NKHHC); G93.41 Metabolic encephalopathy; N39.0 Urinary tract infection, site not specified; E78.5 Hyperlipidemia, unspecified; J44.9 Chronic obstructive pulmonary disease, unspecified; M19.90 Unspecified osteoarthritis, unspecified site; B96.20 Unspecified Escherichia coli [E. coli] as the cause of diseases classified elsewhere; E03.9 Hypothyroidism, unspecified; E78.00 Pure hypercholesterolemia, unspecified; I10 Essential (primary) hypertension; Z88.6 Allergy status to analgesic agent; Z88.5 Allergy status to narcotic agent; Z88.0 Allergy status to penicillin; Z88.8 Allergy status to other drugs, medicaments and biological substances; Z86.73 Personal history of transient ischemic attack (TIA), and cerebral infarction without residual deficits; Z83.3 Family history of diabetes mellitus; Z79.4 Long term (current) use of insulin; E11.40 Type 2 diabetes mellitus with diabetic neuropathy, unspecified
CPT/HCPCS: 36415; 71045; 80048; 80053; 81001; 82140; 82533; 82553; 82962; 83036; 83605; 83735; 83880; 84439; 84443; 84481; 84484; 85007; 85025; 85610; 85651; 87040; 87086; 87186; 93005; 96361; 96374; 96375; J0696; J1815; J2405; J2543; J2765; J3475; J7030; J7040; J7042; 97110; 97116; 97530; 99285-25

== ENCOUNTER 2018-09-23 08:02 | Inpatient (IN) | payer OTHER ==
[~2018-09-23] VITALS: Ht 175.3 cm; Wt 64.9 kg
[~2018-09-23 08:02] MED LIST changes: +CEPH-264 PO; +INSU100I32 SQ
[2018-09-23] MEDS ORDERED: IV NORMAL SALINE 1000ML BAG 1,000 ML IV ONE (08:30)
[2018-09-23 08:43] LABS: BASO % 0 % (0-3); EOS # 0.1 x10^3/uL (0.0-0.7); EOS % 0 % (0-3); HEMATOCRIT 34.6 % (36.0-47.0); HEMOGLOBIN 11.2 g/dL (12.0-15.5); LYMPH # 1.4 x10^3/uL (1.0-4.8); LYMPH % 10 % (24-48); MEAN CORPUSCULAR HEMOGLOBIN 26 pg (25-35); MEAN CORPUSCULAR HGB CONC 32 g/dL (31-37); MEAN CORPUSCULAR VOLUME 82 fL (79-100); MONO # 0.5 x10^3/uL (0.0-1.1); MONO % 4 % (0-9); NEUT # 13.2 x10^3uL (1.8-7.7); NEUT % 86 % (31-73); PLATELET COUNT 400 x10^3/uL (140-400); RED BLOOD COUNT 4.23 x10^6/uL (3.50-5.40); WHITE BLOOD COUNT 15.3 x10^3/uL (4.0-11.0)
--- NOTE | 2018-09-23 08:43 | PHYS DOC ---
Past Medical History Past Medical History: Diabetes-Type I, High Cholesterol, Hypertension, Hypothyroid, Stroke Additional Past Medical Histor: NEUROPATHY Past Surgical History: Other Additional Past Surgical Histo: L BREAST L FOOT R KNEE Alcohol Use: None Drug Use: None Adult General Chief Complaint Chief Complaint: WEAKNESS/GENERALIZED HPI HPI Patient is a 58 year old female with a history of hypertension, diabetes type 1, CVA who presents to the ED today complaining of dizziness and generalized weakness since yesterday. She states today she was at work and a unarmed security officer was walking around and informed her she didn't look right and called 911. Patient denies anything specific and exacerbating or relieving her symptoms. Denies any chest pain or shortness of breath Review of Systems Review of Systems Constitutional: Denies fever or chills [] Eyes: Denies change in visual acuity, redness, or eye pain [] HENT: Denies nasal congestion or sore throat [] Respiratory: Denies cough or shortness of breath [] Cardiovascular: No additional information not addressed in HPI [] GI: Denies abdominal pain, nausea, vomiting, bloody stools or diarrhea [] : Denies dysuria or hematuria [] Musculoskeletal: Denies back pain or joint pain [] Integument: Denies rash or skin lesions [] Neurologic: Reports generalized weakness and dizziness. Denies headache, focal weakness or sensory changes [] All other systems were reviewed and found to be within normal limits, except as documented in this note. Current Medications Current Medications Current Medications Medications (Trade) Dose Ordered Sig/[place] Start Time Stop Time Status Last Admin Dose Admin Ondansetron HCl (Zofran) 4 mg PRN Q8HRS PRN 09/23/18 11:30 09/24/18 11:29 Potassium Chloride (KCl Oral Soln) 40 meq 1X ONCE 09/23/18 12:45 09/23/18 12:46 DC Potassium Chloride (Klor-Con) 40 meq 1X ONCE 09/23/18 09:45 09/23/18 10:24 DC 09/23/18 10:17 40 MEQ Sodium Chloride 1,000 ml @ 1,000 mls/hr 1X ONCE 09/23/18 08:30 09/23/18 09:29 DC 09/23/18 08:37 1,000 MLS/HR Allergies Allergies Allergies Coded Allergies Type Severity Reaction Last Updated Verified atorvastatin Allergy Severe throat swells 09/12/18 Yes hydroxyzine Allergy Severe DIZZINESS, "I FEEL LIKE IM DRUNK" 08/16/18 Yes raspberry Allergy Severe CHOKING SENSATION IN THROAT 10/25/15 Yes tramadol Allergy Severe VOMITING 08/16/18 Yes amoxicillin Allergy Intermediate 10/13/17 Yes aspirin Allergy Intermediate 10/13/17 Yes codeine Allergy Intermediate 10/13/17 Yes ibuprofen Allergy Intermediate 10/13/17 Yes morphine Allergy Intermediate 10/13/17 Yes Physical Exam Physical Exam Constitutional: Well developed, well nourished, no acute distress, non-toxic a ppearance. [] HENT: Normocephalic, atraumatic, bilateral external ears normal, oropharynx moist, no oral exudates, nose normal. [] Eyes: PERRLA, EOMI, conjunctiva normal, no discharge. [] Neck: Normal range of motion, no tenderness, supple, no stridor. [] Cardiovascular:Heart rate regular rhythm, no murmur [] Lungs & Thorax: Bilateral breath sounds clear to auscultation [] Abdomen: Bowel sounds normal, soft, no tenderness, no masses, no pulsatile masses. [] Skin: Warm, dry, no erythema, no rash. [] Back: No tenderness, no CVA tenderness. [] Extremities: No tenderness, no cyanosis, no clubbing, ROM intact, no edema. [] Neurologic: Alert and oriented X 3, normal motor function, normal sensory function, no focal deficits noted. Cranial nerves II through XII intact Psychologic: Affect normal, judgement normal, mood normal. [] Current Patient Data Vital Signs Vital Signs Date Time Temp Pulse Resp B/P (MAP) Pulse Ox O2 Delivery O2 Flow Rate FiO2 09/23/18 11:30 90 99 09/23/18 08:17 97.9 16 157/80 (105) Room Air 97.9 Lab Values Laboratory Tests Test 09/23/18 08:03 09/23/18 08:40 White Blood Count 15.3 x10^3/uL (4.0-11.0) H Red Blood Count 4.23 x10^6/uL (3.50-5.40) Hemoglobin 11.2 g/dL (12.0-15.5) L Hematocrit 34.6 % (36.0-47.0) L Mean Corpuscular Volume 82 fL (79-100) Mean Corpuscular Hemoglobin 26 pg (25-35) Mean Corpuscular Hemoglobin Concent 32 g/dL (31-37) Red Cell Distribution Width 13.0 % (11.5-14.5) Platelet Count 400 x10^3/uL (140-400) Neutrophils (%) (Auto) 86 % (31-73) H Lymphocytes (%) (Auto) 10 % (24-48) L Monocytes (%) (Auto) 4 % (0-9) Eosinophils (%) (Auto) 0 % (0-3) Basophils (%) (Auto) 0 % (0-3) Neutrophils # (Auto) 13.2 x10^3uL (1.8-7.7) H Lymphocytes # (Auto) 1.4 x10^3/uL (1.0-4.8) Monocytes # (Auto) 0.5 x10^3/uL (0.0-1.1) Eosinophils # (Auto) 0.1 x10^3/uL (0.0-0.7) Basophils # (Auto) 0.0 x10^3/uL (0.0-0.2) Segmented Neutrophils % 90 % (35-66) H Lymphocytes % 10 % (24-48) L Platelet Estimate Adequate (ADEQUATE) Archer Cells Occ Prothrombin Time 13.9 SEC (11.7-14.0) Prothrombin Time INR 1.1 (0.8-1.1) Sodium Level 141 mmol/L (136-145) Potassium Level 2.8 mmol/L (3.5-5.1) *L Chloride Level 100 mmol/L (98-107) Carbon Dioxide Level 32 mmol/L (21-32) Anion Gap 9 (6-14) Blood Urea Nitrogen 19 mg/dL (7-20) Creatinine 1.0 mg/dL (0.6-1.0) Estimated GFR (Cockcroft-Gault) 57.4 BUN/Creatinine Ratio 19 (6-20) Glucose Level 140 mg/dL (70-99) H Calcium Level 9.5 mg/dL (8.5-10.1) Magnesium Level 1.6 mg/dL (1.8-2.4) L Total Bilirubin 0.2 mg/dL (0.2-1.0) Aspartate Amino Transferase (AST) 18 U/L (15-37) Alanine Aminotransferase (ALT) 17 U/L (14-59) Alkaline Phosphatase 141 U/L (46-116) H Creatine Kinase 86 U/L (26-192) Creatine Kinase MB (Mass) 2.5 ng/mL (0.0-3.6) Creatine Kinase MB Relative Index 2.9 % (0-4) Troponin I Quantitative < 0.017 ng/mL (0.000-0.055) TI-Nnx-I-Type Natriuretic Peptide 381 pg/mL (0-124) H Total Protein 7.1 g/dL (6.4-8.2) Albumin 2.8 g/dL (3.4-5.0) L Albumin/Globulin Ratio 0.7 (1.0-1.7) L Thyroid Stimulating Hormone (TSH) 0.824 uIU/mL (0.358-3.74) Urine Collection Type Unknown Urine Color Yellow Urine Clarity Cloudy Urine pH 6.0 Urine Specific [place] 1.015 Urine Protein >=300 mg/dL (NEG-TRACE) Urine Glucose (UA) Negative mg/dL (NEG) Urine Ketones (Stick) Negative mg/dL (NEG) Urine Blood Moderate (NEG) Urine Nitrite Negative (NEG) Urine Bilirubin Negative (NEG) Urine Urobilinogen Dipstick 0.2 mg/dL (0.2 mg/dL) Urine Leukocyte Esterase Small (NEG) Urine RBC Occ /HPF (0-2) Urine WBC 5-10 /HPF (0-4) Urine Squamous Epithelial Cells Mod /LPF Urine Bacteria Few /HPF (0-FEW) Urine Hyaline Casts Moderate /HPF Urine Mucus Slight /LPF Urine Opiates Screen Neg (NEG) Urine Methadone Screen Neg (NEG) Urine Barbiturates Neg (NEG) Urine Phencyclidine Screen Neg (NEG) Urine Amphetamine/Methamphetamine Neg (NEG) Urine Benzodiazepines Screen Neg (NEG) Urine Cocaine Screen Neg (NEG) Urine Cannabinoids Screen Neg (NEG) Urine Ethyl Alcohol Neg (NEG) Laboratory Tests 09/23/18 08:03 Laboratory Tests 09/23/18 08:03 EKG EKG 08:[address] Parra sinus rhythm HR 85 no STEMI[] Radiology/Procedures Radiology/Procedures []PROCEDURE: CT HEAD WO CONTRAST CT of the head without contrast, 09/23/2018: HISTORY: Dizziness Comparison is made to a study from 07/18/2018. The ventricles are within normal limits in size. There is no shift of the midline structures. There is no evidence of acute intracranial hemorrhage or mass effect. IMPRESSION: No acute intracranial abnormality is detected. Electronically signed by: Shoaib Morales MD (09/23/2018 9:14 AM) [facility] DICTATED and SIGNED BY: SHOAIB MORALES MD DATE: 09/23/18913 PROCEDURE: PORTABLE CHEST 1V PORTABLE CHEST 1V History: Dizziness Comparison: September 11, 2018 Findings: Single view of the chest is submitted. There is no infiltrate, pneumothorax, or effusion. The pericardial cardiac silhouette is within normal limits in size. There is some deviation of the trachea to the right in the superior mediastinum. Impression: 1. There is no lung infiltrate. 2. There is deviation of the trachea to the right in the superior mediastinum, better characterized by CT. Electronically signed by: Mary De La Cruz MD (09/23/2018 9:06 AM) [id number] DICTATED and SIGNED BY: MARY DE LA CRUZ MD DATE: 09/23/18905 PROCEDURE: CT CHEST WO CONTRAST CT CHEST WO CONTRAST Indication: Deviation of trachea on chest x-ray. Exposure: One or more of the following individualized dose reduction techniques were utilized for this examination: 1. Automated exposure control 2. Adjustment of the mA and/or kV according to patient size 3. Use of iterative reconstruction technique. Technique: Standard imaging without intravenous contrast. Comparison: Chest x-ray of the same day. FINDINGS: There is a calcified mass in the superior mediastinum probably of thyroid origin. This measures 5.5 x 5.0 x 4.5 cm. This demonstrates some irregular internal calcifications. This splays of the proximal great vessels. This also deviates the trachea to the right as seen on chest x-ray. This involves the left lobe of thyroid and isthmus, the right lobe of thyroid also appears somewhat large and irregular. The trachea is patent. This also results in some mass effect upon the esophagus which is displaced posteriorly and appears compressed between the mass and the spine. No significant lymph node enlargement. There is a small pericardial effusion. No significant pleural effusion. Lungs demonstrate no evidence of focal infiltrate or mass lesion. Minimal dependent atelectasis. The deviated trachea and mainstem bronchi are patent. Scans through the upper abdomen are limited by technique. Spleen mildly enlarged at 13 cm. No aggressive bone destruction. Degenerative spondylosis of the spine. IMPRESSION: 1. 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 This does result in deviation of the trachea to the right. In addition, the esophagus appears compressed between the mass and the spine. 2. Small pericardial effusion. 3. Mild splenomegaly. Electronically signed by: Javier Long MD (09/23/2018 10:51 AM) [id number] DICTATED and SIGNED BY: JAVIER LONG MD DATE: 09/23/18 1051 Course & Med Decision Making Course & Med Decision Making Pertinent Labs and Imaging studies reviewed. (See chart for details) This is a 58-year-old female patient presented to the ED today with complaints of generalized weakness and dizziness, symptoms began yesterday. See history of present illness. CBC with a WBC of 15.3 with a left shift, CMP with potassium of 2.8-patient was given 40 mEq of potassium in the ED X2 Urine analysis is noted for small amount of leukocytes bite appears contaminated. CT of the head is negative for any acute findings. Chest x-ray interpreted by radiologist- no lung infiltrate, deviation of the trachea to the right in the superior mediastinum, CT recommend. Ct chest ordered. 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 This does result in deviation of the trachea to the right. In addition, the esophagus appears compressed between the mass and the spine. Small pericardial effusion.Mild splenomegaly. Patient is in the ED no distress. She is on room air breathing while with O2 sat above 98% on room air. She states she has been told before she has a overreactive thyroid. Spoke with Dr. Humphrey who accepted patient for admission. Dragon Disclaimer Dragon Disclaimer This electronic medical record was generated, in whole or in part, using a voice recognition dictation system. Departure Departure Impression: Primary Impression: Hypokalemia Additional Impressions: Dizziness Thyroid mass Weakness Disposition: ADMITTED INPATIENT Referrals: ANN KIRK (PCP) Problem Qualifiers SHARONDA DIAZ [employer] September 23, 2018 08:43
[2018-09-23 08:58] LABS: BILIRUBIN,URINE NEGATIVE (NEG); CLARITY,URINE CLOUDY; COLOR,URINE YELLOW; NITRITE,URINE NEGATIVE (NEG); PROTEIN,URINE >=300 mg/dL (NEG-TRACE); UROBILINOGEN,URINE 0.2 mg/dL (0.2 mg/dL)
[2018-09-23 09:03] LABS: PROTHROMBIN TIME PATIENT 13.9 SEC (11.7-14.0)
--- NOTE | 2018-09-23 09:09 | RAD ---
PORTABLE CHEST 1V History: Dizziness Comparison: September 11, 2018 Findings: Single view of the chest is submitted. There is no infiltrate, pneumothorax, or effusion. The pericardial cardiac silhouette is within normal limits in size. There is some deviation of the trachea to the right in the superior mediastinum. Impression: 1. There is no lung infiltrate. 2. There is deviation of the trachea to the right in the superior mediastinum, better characterized by CT. Electronically signed by: Azael Gomez MD (09/23/2018 9:06 AM) [id number]
--- NOTE | 2018-09-23 09:17 | RAD ---
CT of the head without contrast, 09/23/2018: HISTORY: Dizziness Comparison is made to a study from 07/18/2018. The ventricles are within normal limits in size. There is no shift of the midline structures. There is no evidence of acute intracranial hemorrhage or mass effect. IMPRESSION: No acute intracranial abnormality is detected. Electronically signed by: Shoaib Morales MD (09/23/2018 9:14 AM) [facility]
[2018-09-23 09:19] LABS: ALBUMIN 2.8 g/dL (3.4-5.0); ALBUMIN/GLOBULIN RATIO 0.7 (1.0-1.7); CALCIUM 9.5 mg/dL (8.5-10.1); GFR 57.4; MAGNESIUM 1.6 mg/dL (1.8-2.4); TOTAL BILIRUBIN 0.2 mg/dL (0.2-1.0); TOTAL PROTEIN 7.1 g/dL (6.4-8.2)
[2018-09-23 09:22] LABS: BACTERIA,URINE FEW /HPF (0-FEW); HYALINE CASTS, URINE MODERATE /HPF; RBC,URINE OCC /HPF (0-2); SQUAMOUS EPITHELIAL CELL,UR MOD /LPF
[2018-09-23 09:22] LABS: POTASSIUM 2.8 mmol/L (3.5-5.1)
[2018-09-23 09:23] LABS: BARBITURATES NEG (NEG); BENZODIAZEPINES NEG (NEG); CANNABINOIDS NEG (NEG); COCAINE NEG (NEG); METHADONE NEG (NEG); OPIATES NEG (NEG); PHENCYCLIDINE NEG (NEG)
[2018-09-23 09:25] LABS: AMPHETAMINE/METHAMPHETAMINE NEG (NEG)
[2018-09-23 09:44] LABS: % LYMPHS 10 % (24-48); % SEGS 90 % (35-66); PLT ESTIMATE ADEQUATE (ADEQUATE)
[2018-09-23 09:45] LABS: BURR CELLS OCC
[2018-09-23] MEDS ORDERED: POTASSIUM CHLORIDE 20 MEQ TABLET.ER. PO ONE (09:45)
[2018-09-23] MEDS ORDERED: POTASSIUM CHLORIDE 20 MEQ/15 ML ORAL LIQUID. PO ONE ×2 (10:30→12:45)
--- NOTE | 2018-09-23 10:54 | RAD ---
CT CHEST WO CONTRAST Indication: Deviation of trachea on chest x-ray. Exposure: One or more of the following individualized dose reduction techniques were utilized for this examination: 1. Automated exposure control 2. Adjustment of the mA and/or kV according to patient size 3. Use of iterative reconstruction technique. Technique: Standard imaging without intravenous contrast. Comparison: Chest x-ray of the same day. FINDINGS: There is a calcified mass in the superior mediastinum probably of thyroid origin. This measures 5.5 x 5.0 x 4.5 cm. This demonstrates some irregular internal calcifications. This splays of the proximal great vessels. This also deviates the trachea to the right as seen on chest x-ray. This involves the left lobe of thyroid and isthmus, the right lobe of thyroid also appears somewhat large and irregular. The trachea is patent. This also results in some mass effect upon the esophagus which is displaced posteriorly and appears compressed between the mass and the spine. No significant lymph node enlargement. There is a small pericardial effusion. No significant pleural effusion. Lungs demonstrate no evidence of focal infiltrate or mass lesion. Minimal dependent atelectasis. The deviated trachea and mainstem bronchi are patent. Scans through the upper abdomen are limited by technique. Spleen mildly enlarged at 13 cm. No aggressive bone destruction. Degenerative spondylosis of the spine. IMPRESSION: 1. 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 This does result in deviation of the trachea to the right. In addition, the esophagus appears compressed between the mass and the spine. 2. Small pericardial effusion. 3. Mild splenomegaly. Electronically signed by: Javier Long MD (09/23/2018 10:51 AM) [id number]
--- NOTE | 2018-09-23 11:20 | EKG ---
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
[2018-09-23] MEDS ORDERED: ONDANSETRON PF 4 MG/2 ML VIAL. IV PRN (11:30)
[2018-09-23 13:00] VITALS: BP 141/85
[2018-09-23] MEDS ORDERED: MIDO10TA PO (13:20)
--- NOTE | 2018-09-23 13:45 | PDOC1 ---
History and Physical Date of Admission Date of Admission DATE: 09/23/18 TIME: 13:45 Identification/Chief Complaint Chief Complaint Chest pain History of Present Illness History of Present Illness Ms Wright is a 58 year old female w/ PMHx HTN, diabetes mellitus, prior CVA, hyperthyroidism who presents to the ED today complaining of dizziness and generalized weakness since yesterday. She states today she was at work and a java security engineer was walking around and informed her she didn't look right and called 911. Patient denies anything specific and exacerbating or relieving her symptoms. Denies any chest pain or shortness of breath On ROS she notes recent weakness and weight loss. CXR revealed tracheal deviation. CT of the chest was done which showed large neck mass extending into the mediastinum. She does recently have some trouble swallowing solids. Denies pain. K and Mag were both profoundly low 2.8 and 1.6, respectively. Past Medical History Cardiovascular: Hyperlipidemia, Other Pulmonary: COPD CENTRAL NERVOUS SYSTEM: CVA, Periperal neuropathy GI: No pertinent hx Heme/Onc: No pertinent hx Hepatobiliary: No pertinent hx Psych: No pertinent hx Musculoskeletal: Osteoarthritis Rheumatologic: No pertinent hx Infectious disease: Other Renal/: No pertinent hx Endocrine: Diabetes, Hyperthyroidism Past Surgical History Past Surgical History: Other Family History Family History: Diabetes, Family History Unknown Social History Smoke: No ALCOHOL: none Drugs: None Current Problem List Problem List Problems Medical Problems: (1) Dizziness Status: Acute (2) Hypokalemia Status: Acute (3) Thyroid mass Status: Acute (4) Weakness Status: Acute Current Medications Current Medications Current Medications Sodium Chloride 1,000 ml @ 1,000 mls/hr 1X ONCE IV Last administered on 09/23/18at 08:37; Start 09/23/18 at 08:30; Stop 09/23/18 at 09:29; Status DC Potassium Chloride (Klor-Con) 40 meq 1X ONCE PO Last administered on 09/23/18at 10:17; Start 09/23/18 at 09:45; Stop 09/23/18 at 10:24; Status DC Potassium Chloride (KCl Oral Soln) 40 meq 1X ONCE PO Last administered on 09/23/18at 10:37; Start 09/23/18 at 10:30; Stop 09/23/18 at 10:31; Status DC Ondansetron HCl (Zofran) 4 mg PRN Q8HRS PRN IV NAUSEA/VOMITING; Start 09/23/18 at 11:30; Stop 09/24/18 at 11:29 Potassium Chloride (KCl Oral Soln) 40 meq 1X ONCE PO Last administered on 09/23/18at 12:56; Start 09/23/18 at 12:45; Stop 09/23/18 at 12:46; Status DC Active Scripts Active Keflex (Cephalexin) 500 Mg Capsule 1 Cap PO TID Fludrocortisone Acetate 0.1 Mg Tablet 0.1 Mg PO DAILY Reported Midodrine Hcl 10 Mg Tablet 10 Mg PO TID PRN Basaglar Kwikpen U-100 (Insulin Glargine,Hum.rec.anlog) 100 Unit/1 Ml Insuln.pen 45 Unit SQ DAILY08 Lovastatin 10 Mg Tablet 10 Mg PO HS Methimazole 5 Mg Tablet 5 Mg PO DAILY08 Gabapentin (Gabapentin) 300 Mg Capsule 600 Mg PO HS Amitriptyline Hcl 100 Mg Tablet 1 Tab PO QHS Allergies Allergies: Coded Allergies: atorvastatin (Verified Allergy, Severe, throat swells, 09/12/18) hydroxyzine (Verified Allergy, Severe, DIZZINESS, "I FEEL LIKE IM DRUNK", 08/16/18) raspberry (Verified Allergy, Severe, CHOKING SENSATION IN THROAT, 10/25/15) tramadol (Verified Allergy, Severe, VOMITING, 08/16/18) amoxicillin (Verified Allergy, Intermediate, 10/13/17) aspirin (Verified Allergy, Intermediate, 10/13/17) codeine (Verified Allergy, Intermediate, 10/13/17) ibuprofen (Verified Allergy, Intermediate, 10/13/17) morphine (Verified Allergy, Intermediate, 10/13/17) cephalexin (Verified Allergy, Unknown, 09/23/18) ciprofloxacin (Verified Allergy, Unknown, 09/23/18) pregabalin (Verified Allergy, Unknown, vomiting, 09/23/18) ROS General: YES: Fatigue, Malaise, Appetite; No: Chills, Night Sweats, Other PSYCHOLOGICAL ROS: YES: Anxiety; No: Behavioral Disorder, Concentration difficultie, Decreased libido, Depression, Disorientation, Hallucinations, Hostility, Irritablity, Memory difficulties, Mood Swings, Obsessive thoughts, Physical abuse, Sexual abuse, Sleep disturbances, Suicidal ideation, Other Eyes: No Blurry vision, No Decreased vision, No Double vision, No Dry eyes, No Excessive tearing, No Eye Pain, No Itchy Eyes, No Loss of vision, No Photophobia, No Scotomata, No Uses contacts, No Uses glasses, No Other HEENT: No: Heacaches, Visual Changes, Hearing change, Nasal congestion, Nasal discharge, Oral lesions, Sinus pain, Sore Throat, Epistaxis, Sneezing, Snoring, Tinnitus, Vertigo, Vocal changes, Other ALLERGY AND IMMUNOLOGY: No: Hives, Insect Bite Sensitivity, Itchy/Watery Eyes, Nasal Congestion, Post Nasal Drip, Seasonal Allergies, Other Hematological and Lymphatic: No: Bleeding Problems, Blood Clots, Blood Transfusions, Brusing, Night Sweats, Pallor, Swollen Lymph Nodes, Other ENDOCRINE: No: Breast Changes, Galactorrhea, Hair Pattern Changes, Hot Flashes, Malaise/lethargy, Mood Swings, Palpitations, Polydipsia/polyuria, Skin Changes, Temperature Intolerance, Unexpected Weight Changes, Other Breast: No New/Changing Breast Lumps, No Nipple changes, No Nipple discharge, No Other Respiratory: No: Cough, Hemoptysis, Orthopnea, Pleuritic Pain, Shortness of breath, SOB with excertion, Sputum Changes, Stridor, Tachypnea, Wheezing, Other Cardiovascular: No Chest Pain, No Palpitations, No Orthopnea, No Paroxysmal Noc. Dyspnea, No Edema, No Lt Headedness, No Other Gastrointestinal: No Nausea, No Vomiting, No Abdominal Pain, No Diarrhea, No Constipation, No Melena, No Hematochezia, No Other Genitourinary: No Dysuria, No Frequency, No Incontinence, No Hematuria, No Retention, No Discharge, No Urgency, No Pain, No Flank Pain, No Other, No , No , No , No , No , No , No Musculoskeletal: No Gait Disturbance, No Joint Pain, No Joint Stiffness, No Joint Swelling, No Muscle Pain, No Muscular Weakness, No Pain In:, No Swelling In:, No Other Neurological: No Behavorial Changes, No Bowel/Bladder ControlChng, No Confusion, No Dizziness, No Gait Disturbance, No Headaches, No Impaired Coord/balance, No Memory Loss, No Numbness/Tingling, No Seizures, No Speech Problems, No Tremors, No Visual Changes, No Weakness, No Other Skin: No Dry Skin, No Eczema, No Hair Changes, No Lumps, No Mole Changes, No Mottling, No Nail Changes, No Pruritus, No Rash, No Skin Lesion Changes, No Other, No Acne Physical Exam General: Alert, Oriented X3, Cooperative, No acute distress HEENT: Atraumatic, PERRLA, EOMI, Mucous membr. moist/pink, Other (Large neck mass, prominent JVD) Lungs: Clear to auscultation, Normal air movement Heart: S1S2, RRR Abdomen: Normal bowel sounds, Soft, No tenderness, No hepatosplenomegaly, No masses Extremities: No clubbing, No cyanosis, No edema, Normal pulses, No tenderness/swelling Skin: No rashes, No breakdown, No significant lesion Neuro: Normal gait, Normal speech, Strength at 5/5 X4 ext, Normal tone, Sensation intact, Cranial nerves 3-12 NL, Reflexes 2+ Psych/Mental Status: Mental status NL, Mood NL Vitals Vitals Vital Signs Date Time Temp Pulse Resp B/P (MAP) Pulse Ox O2 Delivery O2 Flow Rate FiO2 09/23/18 12:30 82 16 97 09/23/18 08:17 97.9 157/80 (105) Room Air 97.9 Labs Labs Laboratory Tests Test 09/23/18 08:03 09/23/18 08:40 White Blood Count 15.3 x10^3/uL (4.0-11.0) Red Blood Count 4.23 x10^6/uL (3.50-5.40) Hemoglobin 11.2 g/dL (12.0-15.5) Hematocrit 34.6 % (36.0-47.0) Mean Corpuscular Volume 82 fL (79-100) Mean Corpuscular Hemoglobin 26 pg (25-35) Mean Corpuscular Hemoglobin Concent 32 g/dL (31-37) Red Cell Distribution Width 13.0 % (11.5-14.5) Platelet Count 400 x10^3/uL (140-400) Neutrophils (%) (Auto) 86 % (31-73) Lymphocytes (%) (Auto) 10 % (24-48) Monocytes (%) (Auto) 4 % (0-9) Eosinophils (%) (Auto) 0 % (0-3) Basophils (%) (Auto) 0 % (0-3) Neutrophils # (Auto) 13.2 x10^3uL (1.8-7.7) Lymphocytes # (Auto) 1.4 x10^3/uL (1.0-4.8) Monocytes # (Auto) 0.5 x10^3/uL (0.0-1.1) Eosinophils # (Auto) 0.1 x10^3/uL (0.0-0.7) Basophils # (Auto) 0.0 x10^3/uL (0.0-0.2) Segmented Neutrophils % 90 % (35-66) Lymphocytes % 10 % (24-48) Platelet Estimate Adequate (ADEQUATE) Adithya Cells Occ Prothrombin Time 13.9 SEC (11.7-14.0) Prothromb Time International Ratio 1.1 (0.8-1.1) Sodium Level 141 mmol/L (136-145) Potassium Level 2.8 mmol/L (3.5-5.1) Chloride Level 100 mmol/L (98-107) Carbon Dioxide Level 32 mmol/L (21-32) Anion Gap 9 (6-14) Blood Urea Nitrogen 19 mg/dL (7-20) Creatinine 1.0 mg/dL (0.6-1.0) Estimated GFR (Cockcroft-Gault) 57.4 BUN/Creatinine Ratio 19 (6-20) Glucose Level 140 mg/dL (70-99) Calcium Level 9.5 mg/dL (8.5-10.1) Magnesium Level 1.6 mg/dL (1.8-2.4) Total Bilirubin 0.2 mg/dL (0.2-1.0) Aspartate Amino Transf (AST/SGOT) 18 U/L (15-37) Alanine Aminotransferase (ALT/SGPT) 17 U/L (14-59) Alkaline Phosphatase 141 U/L (46-116) Creatine Kinase 86 U/L (26-192) Creatine Kinase MB (Mass) 2.5 ng/mL (0.0-3.6) Creatine Kinase MB Relative Index 2.9 % (0-4) Troponin I Quantitative < 0.017 ng/mL (0.000-0.055) [id number] Natriuretic Peptide 381 pg/mL (0-124) Total Protein 7.1 g/dL (6.4-8.2) Albumin 2.8 g/dL (3.4-5.0) Albumin/Globulin Ratio 0.7 (1.0-1.7) Thyroid Stimulating Hormone (TSH) 0.824 uIU/mL (0.358-3.74) Urine Collection Type Unknown Urine Color Yellow Urine Clarity Cloudy Urine pH 6.0 Urine Specific [place] 1.015 Urine Protein >=300 mg/dL (NEG-TRACE) Urine Glucose (UA) Negative mg/dL (NEG) Urine Ketones (Stick) Negative mg/dL (NEG) Urine Blood Moderate (NEG) Urine Nitrite Negative (NEG) Urine Bilirubin Negative (NEG) Urine Urobilinogen Dipstick 0.2 mg/dL (0.2 mg/dL) Urine Leukocyte Esterase Small (NEG) Urine RBC Occ /HPF (0-2) Urine WBC 5-10 /HPF (0-4) Urine Squamous Epithelial Cells Mod /LPF Urine Bacteria Few /HPF (0-FEW) Urine Hyaline Casts Moderate /HPF Urine Mucus Slight /LPF Urine Opiates Screen Neg (NEG) Urine Methadone Screen Neg (NEG) Urine Barbiturates Neg (NEG) Urine Phencyclidine Screen Neg (NEG) Urine Amphetamine/Methamphetamine Neg (NEG) Urine Benzodiazepines Screen Neg (NEG) Urine Cocaine Screen Neg (NEG) Urine Cannabinoids Screen Neg (NEG) Urine Ethyl Alcohol Neg (NEG) Laboratory Tests Test 09/23/18 08:03 09/23/18 08:40 White Blood Count 15.3 x10^3/uL (4.0-11.0) Red Blood Count 4.23 x10^6/uL (3.50-5.40) Hemoglobin 11.2 g/dL (12.0-15.5) Hematocrit 34.6 % (36.0-47.0) Mean Corpuscular Volume 82 fL (79-100) Mean Corpuscular Hemoglobin 26 pg (25-35) Mean Corpuscular Hemoglobin Concent 32 g/dL (31-37) Red Cell Distribution Width 13.0 % (11.5-14.5) Platelet Count 400 x10^3/uL (140-400) Neutrophils (%) (Auto) 86 % (31-73) Lymphocytes (%) (Auto) 10 % (24-48) Monocytes (%) (Auto) 4 % (0-9) Eosinophils (%) (Auto) 0 % (0-3) Basophils (%) (Auto) 0 % (0-3) Neutrophils # (Auto) 13.2 x10^3uL (1.8-7.7) Lymphocytes # (Auto) 1.4 x10^3/uL (1.0-4.8) Monocytes # (Auto) 0.5 x10^3/uL (0.0-1.1) Eosinophils # (Auto) 0.1 x10^3/uL (0.0-0.7) Basophils # (Auto) 0.0 x10^3/uL (0.0-0.2) Segmented Neutrophils % 90 % (35-66) Lymphocytes % 10 % (24-48) Platelet Estimate Adequate (ADEQUATE) [place] Cells Occ Prothrombin Time 13.9 SEC (11.7-14.0) Prothromb Time International Ratio 1.1 (0.8-1.1) Sodium Level 141 mmol/L (136-145) Potassium Level 2.8 mmol/L (3.5-5.1) Chloride Level 100 mmol/L (98-107) Carbon Dioxide Level 32 mmol/L (21-32) Anion Gap 9 (6-14) Blood Urea Nitrogen 19 mg/dL (7-20) Creatinine 1.0 mg/dL (0.6-1.0) Estimated GFR (Cockcroft-Gault) 57.4 BUN/Creatinine Ratio 19 (6-20) Glucose Level 140 mg/dL (70-99) Calcium Level 9.5 mg/dL (8.5-10.1) Magnesium Level 1.6 mg/dL (1.8-2.4) Total Bilirubin 0.2 mg/dL (0.2-1.0) Aspartate Amino Transf (AST/SGOT) 18 U/L (15-37) Alanine Aminotransferase (ALT/SGPT) 17 U/L (14-59) Alkaline Phosphatase 141 U/L (46-116) Creatine Kinase 86 U/L (26-192) Creatine Kinase MB (Mass) 2.5 ng/mL (0.0-3.6) Creatine Kinase MB Relative Index 2.9 % (0-4) Troponin I Quantitative < 0.017 ng/mL (0.000-0.055) [id number]-Type Natriuretic Peptide 381 pg/mL (0-124) Total Protein 7.1 g/dL (6.4-8.2) Albumin 2.8 g/dL (3.4-5.0) Albumin/Globulin Ratio 0.7 (1.0-1.7) Thyroid Stimulating Hormone (TSH) 0.824 uIU/mL (0.358-3.74) Urine Collection Type Unknown Urine Color Yellow Urine Clarity Cloudy Urine pH 6.0 Urine Specific [place] 1.015 Urine Protein >=300 mg/dL (NEG-TRACE) Urine Glucose (UA) Negative mg/dL (NEG) Urine Ketones (Stick) Negative mg/dL (NEG) Urine Blood Moderate (NEG) Urine Nitrite Negative (NEG) Urine Bilirubin Negative (NEG) Urine Urobilinogen Dipstick 0.2 mg/dL (0.2 mg/dL) Urine Leukocyte Esterase Small (NEG) Urine RBC Occ /HPF (0-2) Urine WBC 5-10 /HPF (0-4) Urine Squamous Epithelial Cells Mod /LPF Urine Bacteria Few /HPF (0-FEW) Urine Hyaline Casts Moderate /HPF Urine Mucus Slight /LPF Urine Opiates Screen Neg (NEG) Urine Methadone Screen Neg (NEG) Urine Barbiturates Neg (NEG) Urine Phencyclidine Screen Neg (NEG) Urine Amphetamine/Methamphetamine Neg (NEG) Urine Benzodiazepines Screen Neg (NEG) Urine Cocaine Screen Neg (NEG) Urine Cannabinoids Screen Neg (NEG) Urine Ethyl Alcohol Neg (NEG) Images Images CT chest - 1. 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 This does result in deviation of the trachea to the right. In addition, the esophagus appears compressed between the mass and the spine. 2. Small pericardial effusion. 3. Mild splenomegaly. 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 Consulted general surgery and pulmonology. Will likely need tertiary care center where ENT and CT surgery are available given the size and scope of this mass. Will ask for CT surgery opinion as well. Can have clear liquids after biopsy DM - unclear if she is type 1. States she sees Dr. Chicas at [facility] through [facility]. 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 Will need her records for prior FNA and find her old ultrasound as well ?[place] disease - on florinef Hypokalemia - likely RTA or addisonian, will replete Hypomagnesemia - will replete Dysphagia - for solids - likely 2/2 esophageal compression from superior mediastinal mass Abnormal weight loss - concerning for possible underlying malignancy FEN - NPO until biopsy, then liquid diet PPX - Lovenox after biopsy FULL CODE Inpatient for mediastinal mass interfering with eating. Concerning for JUAN PABLO Bro MD September 23, 2018 13:45
[2018-09-23] MEDS ORDERED: INSU100I17 SQ (14:08)
[2018-09-23 15:00] VITALS: BP 142/78
--- NOTE | 2018-09-23 15:00 | PDOC2 ---
CONSULT Date of Consult Date of Consult DATE: 09/23/18 TIME: 14:50 Reason for Consult Reason for Consult: Thyroid/mediastinal mass Referring Physician Referring Physician: Kam Identification/Chief Complaint Chief Complaint Weakness Source Source: Patient History of Present Illness Reason for Visit: 58 yo female admitted to the hospital with weakness and weight loss. CXR showed trachea deviation. CT of the chest was done which showed large neck mass extending into the mediastinum. She has been on antithyroid meds for several years due to hyperthyroidism. Does have some trouble swallowing solids. Denies pain. Past Medical History Cardiovascular: Hyperlipidemia, Other Pulmonary: COPD CENTRAL NERVOUS SYSTEM: CVA, Periperal neuropathy GI: No pertinent hx Heme/Onc: No pertinent hx Hepatobiliary: No pertinent hx Psych: No pertinent hx Musculoskeletal: Osteoarthritis Rheumatologic: No pertinent hx Infectious disease: Other Renal/: No pertinent hx Endocrine: Diabetes, Hyperthyroidism Past Surgical History Past Surgical History: Other Family History Family History: Diabetes, Family History Unknown Social History ALCOHOL: none Drugs: None Lives: with Family Current Problem List Problem List Problems Medical Problems: (1) Dizziness Status: Acute (2) Hypokalemia Status: Acute (3) Thyroid mass Status: Acute (4) Weakness Status: Acute Current Medications Current Medications Current Medications Sodium Chloride 1,000 ml @ 1,000 mls/hr 1X ONCE IV Last administered on 09/23/18at 08:37; Start 09/23/18 at 08:30; Stop 09/23/18 at 09:29; Status DC Potassium Chloride (Klor-Con) 40 meq 1X ONCE PO Last administered on 09/23/18at 10:17; Start 09/23/18 at 09:45; Stop 09/23/18 at 10:24; Status DC Potassium Chloride (KCl Oral Soln) 40 meq 1X ONCE PO Last administered on 09/23/18at 10:37; Start 09/23/18 at 10:30; Stop 09/23/18 at 10:31; Status DC Ondansetron HCl (Zofran) 4 mg PRN Q8HRS PRN IV NAUSEA/VOMITING; Start 09/23/18 at 11:30; Stop 09/24/18 at 11:29 Potassium Chloride (KCl Oral Soln) 40 meq 1X ONCE PO Last administered on 09/23/18at 12:56; Start 09/23/18 at 12:45; Stop 09/23/18 at 12:46; Status DC Active Scripts Active Keflex (Cephalexin) 500 Mg Capsule 1 Cap PO TID Fludrocortisone Acetate 0.1 Mg Tablet 0.1 Mg PO DAILY Reported Novolog Flexpen (Insulin Aspart) 100 Unit/1 Ml Insuln.pen 1 Unit SQ TIDAC Midodrine Hcl 10 Mg Tablet 10 Mg PO TID PRN Basaglar Kwikpen U-100 (Insulin Glargine,Hum.rec.anlog) 100 Unit/1 Ml Insuln.pen 45 Unit SQ DAILY08 Lovastatin 10 Mg Tablet 10 Mg PO HS Methimazole 5 Mg Tablet 5 Mg PO DAILY08 Gabapentin (Gabapentin) 300 Mg Capsule 600 Mg PO HS Amitriptyline Hcl 100 Mg Tablet 1 Tab PO QHS Allergies Allergies: Coded Allergies: atorvastatin (Verified Allergy, Severe, throat swells, 09/12/18) hydroxyzine (Verified Allergy, Severe, DIZZINESS, "I FEEL LIKE IM DRUNK", 08/16/18) raspberry (Verified Allergy, Severe, CHOKING SENSATION IN THROAT, 10/25/15) tramadol (Verified Allergy, Severe, VOMITING, 08/16/18) amoxicillin (Verified Allergy, Intermediate, 10/13/17) aspirin (Verified Allergy, Intermediate, 10/13/17) codeine (Verified Allergy, Intermediate, 10/13/17) ibuprofen (Verified Allergy, Intermediate, 10/13/17) morphine (Verified Allergy, Intermediate, 10/13/17) cephalexin (Verified Allergy, Unknown, 09/23/18) ciprofloxacin (Verified Allergy, Unknown, 09/23/18) pregabalin (Verified Allergy, Unknown, vomiting, 09/23/18) ROS General: YES: Fatigue Physical Exam General: Alert, Oriented X3, Cooperative, No acute distress HEENT: Atraumatic, PERRLA, EOMI, Other (firm large right neck mass mild TTP) Lungs: Clear to auscultation, Normal air movement Heart: Regular rate, No murmurs Abdomen: Normal bowel sounds, Soft, No tenderness Extremities: No edema Skin: No significant lesion Neuro: Normal speech Psych/Mental Status: Mental status NL Vitals VITALS Vital Signs Date Time Temp Pulse Resp B/P (MAP) Pulse Ox O2 Delivery O2 Flow Rate FiO2 09/23/18 13:00 98.0 85 16 141/85 (103) 99 Room Air 98.0 Labs Labs Laboratory Tests Test 09/23/18 08:03 09/23/18 08:40 White Blood Count 15.3 x10^3/uL (4.0-11.0) Red Blood Count 4.23 x10^6/uL (3.50-5.40) Hemoglobin 11.2 g/dL (12.0-15.5) Hematocrit 34.6 % (36.0-47.0) Mean Corpuscular Volume 82 fL (79-100) Mean Corpuscular Hemoglobin 26 pg (25-35) Mean Corpuscular Hemoglobin Concent 32 g/dL (31-37) Red Cell Distribution Width 13.0 % (11.5-14.5) Platelet Count 400 x10^3/uL (140-400) Neutrophils (%) (Auto) 86 % (31-73) Lymphocytes (%) (Auto) 10 % (24-48) Monocytes (%) (Auto) 4 % (0-9) Eosinophils (%) (Auto) 0 % (0-3) Basophils (%) (Auto) 0 % (0-3) Neutrophils # (Auto) 13.2 x10^3uL (1.8-7.7) Lymphocytes # (Auto) 1.4 x10^3/uL (1.0-4.8) Monocytes # (Auto) 0.5 x10^3/uL (0.0-1.1) Eosinophils # (Auto) 0.1 x10^3/uL (0.0-0.7) Basophils # (Auto) 0.0 x10^3/uL (0.0-0.2) Segmented Neutrophils % 90 % (35-66) Lymphocytes % 10 % (24-48) Platelet Estimate Adequate (ADEQUATE) Adithya Cells Occ Prothrombin Time 13.9 SEC (11.7-14.0) Prothromb Time International Ratio 1.1 (0.8-1.1) Sodium Level 141 mmol/L (136-145) Potassium Level 2.8 mmol/L (3.5-5.1) Chloride Level 100 mmol/L (98-107) Carbon Dioxide Level 32 mmol/L (21-32) Anion Gap 9 (6-14) Blood Urea Nitrogen 19 mg/dL (7-20) Creatinine 1.0 mg/dL (0.6-1.0) Estimated GFR (Cockcroft-Gault) 57.4 BUN/Creatinine Ratio 19 (6-20) Glucose Level 140 mg/dL (70-99) Calcium Level 9.5 mg/dL (8.5-10.1) Magnesium Level 1.6 mg/dL (1.8-2.4) Total Bilirubin 0.2 mg/dL (0.2-1.0) Aspartate Amino Transf (AST/SGOT) 18 U/L (15-37) Alanine Aminotransferase (ALT/SGPT) 17 U/L (14-59) Alkaline Phosphatase 141 U/L (46-116) Creatine Kinase 86 U/L (26-192) Creatine Kinase MB (Mass) 2.5 ng/mL (0.0-3.6) Creatine Kinase MB Relative Index 2.9 % (0-4) Troponin I Quantitative < 0.017 ng/mL (0.000-0.055) ZA-Lzs-P-Type Natriuretic Peptide 381 pg/mL (0-124) Total Protein 7.1 g/dL (6.4-8.2) Albumin 2.8 g/dL (3.4-5.0) Albumin/Globulin Ratio 0.7 (1.0-1.7) Thyroid Stimulating Hormone (TSH) 0.824 uIU/mL (0.358-3.74) Urine Collection Type Unknown Urine Color Yellow Urine Clarity Cloudy Urine pH 6.0 Urine Specific Forest 1.015 Urine Protein >=300 mg/dL (NEG-TRACE) Urine Glucose (UA) Negative mg/dL (NEG) Urine Ketones (Stick) Negative mg/dL (NEG) Urine Blood Moderate (NEG) Urine Nitrite Negative (NEG) Urine Bilirubin Negative (NEG) Urine Urobilinogen Dipstick 0.2 mg/dL (0.2 mg/dL) Urine Leukocyte Esterase Small (NEG) Urine RBC Occ /HPF (0-2) Urine WBC 5-10 /HPF (0-4) Urine Squamous Epithelial Cells Mod /LPF Urine Bacteria Few /HPF (0-FEW) Urine Hyaline Casts Moderate /HPF Urine Mucus Slight /LPF Urine Opiates Screen Neg (NEG) Urine Methadone Screen Neg (NEG) Urine Barbiturates Neg (NEG) Urine Phencyclidine Screen Neg (NEG) Urine Amphetamine/Methamphetamine Neg (NEG) Urine Benzodiazepines Screen Neg (NEG) Urine Cocaine Screen Neg (NEG) Urine Cannabinoids Screen Neg (NEG) Urine Ethyl Alcohol Neg (NEG) Laboratory Tests Test 09/23/18 08:03 09/23/18 08:40 White Blood Count 15.3 x10^3/uL (4.0-11.0) Red Blood Count 4.23 x10^6/uL (3.50-5.40) Hemoglobin 11.2 g/dL (12.0-15.5) Hematocrit 34.6 % (36.0-47.0) Mean Corpuscular Volume 82 fL (79-100) Mean Corpuscular Hemoglobin 26 pg (25-35) Mean Corpuscular Hemoglobin Concent 32 g/dL (31-37) Red Cell Distribution Width 13.0 % (11.5-14.5) Platelet Count 400 x10^3/uL (140-400) Neutrophils (%) (Auto) 86 % (31-73) Lymphocytes (%) (Auto) 10 % (24-48) Monocytes (%) (Auto) 4 % (0-9) Eosinophils (%) (Auto) 0 % (0-3) Basophils (%) (Auto) 0 % (0-3) Neutrophils # (Auto) 13.2 x10^3uL (1.8-7.7) Lymphocytes # (Auto) 1.4 x10^3/uL (1.0-4.8) Monocytes # (Auto) 0.5 x10^3/uL (0.0-1.1) Eosinophils # (Auto) 0.1 x10^3/uL (0.0-0.7) Basophils # (Auto) 0.0 x10^3/uL (0.0-0.2) Segmented Neutrophils % 90 % (35-66) Lymphocytes % 10 % (24-48) Platelet Estimate Adequate (ADEQUATE) Adithya Cells Occ Prothrombin Time 13.9 SEC (11.7-14.0) Prothromb Time International Ratio 1.1 (0.8-1.1) Sodium Level 141 mmol/L (136-145) Potassium Level 2.8 mmol/L (3.5-5.1) Chloride Level 100 mmol/L (98-107) Carbon Dioxide Level 32 mmol/L (21-32) Anion Gap 9 (6-14) Blood Urea Nitrogen 19 mg/dL (7-20) Creatinine 1.0 mg/dL (0.6-1.0) Estimated GFR (Cockcroft-Gault) 57.4 BUN/Creatinine Ratio 19 (6-20) Glucose Level 140 mg/dL (70-99) Calcium Level 9.5 mg/dL (8.5-10.1) Magnesium Level 1.6 mg/dL (1.8-2.4) Total Bilirubin 0.2 mg/dL (0.2-1.0) Aspartate Amino Transf (AST/SGOT) 18 U/L (15-37) Alanine Aminotransferase (ALT/SGPT) 17 U/L (14-59) Alkaline Phosphatase 141 U/L (46-116) Creatine Kinase 86 U/L (26-192) Creatine Kinase MB (Mass) 2.5 ng/mL (0.0-3.6) Creatine Kinase MB Relative Index 2.9 % (0-4) Troponin I Quantitative < 0.017 ng/mL (0.000-0.055) IH-Pxo-J-Type Natriuretic Peptide 381 pg/mL (0-124) Total Protein 7.1 g/dL (6.4-8.2) Albumin 2.8 g/dL (3.4-5.0) Albumin/Globulin Ratio 0.7 (1.0-1.7) Thyroid Stimulating Hormone (TSH) 0.824 uIU/mL (0.358-3.74) Urine Collection Type Unknown Urine Color Yellow Urine Clarity Cloudy Urine pH 6.0 Urine Specific Forest 1.015 Urine Protein >=300 mg/dL (NEG-TRACE) Urine Glucose (UA) Negative mg/dL (NEG) Urine Ketones (Stick) Negative mg/dL (NEG) Urine Blood Moderate (NEG) Urine Nitrite Negative (NEG) Urine Bilirubin Negative (NEG) Urine Urobilinogen Dipstick 0.2 mg/dL (0.2 mg/dL) Urine Leukocyte Esterase Small (NEG) Urine RBC Occ /HPF (0-2) Urine WBC 5-10 /HPF (0-4) Urine Squamous Epithelial Cells Mod /LPF Urine Bacteria Few /HPF (0-FEW) Urine Hyaline Casts Moderate /HPF Urine Mucus Slight /LPF Urine Opiates Screen Neg (NEG) Urine Methadone Screen Neg (NEG) Urine Barbiturates Neg (NEG) Urine Phencyclidine Screen Neg (NEG) Urine Amphetamine/Methamphetamine Neg (NEG) Urine Benzodiazepines Screen Neg (NEG) Urine Cocaine Screen Neg (NEG) Urine Cannabinoids Screen Neg (NEG) Urine Ethyl Alcohol Neg (NEG) Images Images as in HPI Assessment/Plan Assessment/Plan Large neck mass extending into the mediastinum with tracheal deviation and compression of the esophagus. Will get IR to needle mass for tissue diagnosis. Would recommend tertiary care center for definitive surgical treatment which will likely require thoracic surgery, and ENT Spoke with the family about the treatment plan. PARMINDER INGRAM MD September 23, 2018 14:59
[2018-09-23] MEDS ORDERED: DEXTROSE 50% 25 GM / 50ML DISP.SYRIN. IV PRN (15:30)
[2018-09-23] MEDS ORDERED: MAGNESIUM SULFATE 4GM 100 ML IV ONE (16:00)
--- NOTE | 2018-09-23 16:01 | CONS ---
DATE OF CONSULTATION: ATTENDING PHYSICIAN: Dr. Humphrey. REASON FOR CONSULTATION: Thyroid mass, abnormal CT chest. HISTORY OF PRESENT ILLNESS: The patient is a 58-year-old who has no history of tobacco use. She came into the hospital because of weakness. She has some dizziness and generalized weakness. She was not short of breath. She was not short of breath. The patient underwent imaging study including a CT of the chest, which was reviewed by me. 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 She, however, does have esophagus which is compressed between the mass and the spine. She has difficulty in swallowing with solids. She said she was hyperthyroid and was being followed by slip operator, was on antithyroid drugs, methimazole. The patient states that she has lost about 75 pounds in the last few years, which is unintentional. Prior to that, she intentionally lost 200 pounds on Atkins diet. No other pulmonary issues. PAST MEDICAL HISTORY: History of type 1 diabetes, dyslipidemia, hypertension, hyperthyroidism, stroke, neuropathy. PAST SURGICAL HISTORY: Including left breast, foot and right knee surgery. ALLERGIES: MULTIPLE, THEY ARE ALL REVIEWED LISTED IN THE MRAD. CURRENT MEDICATIONS: Reviewed. REVIEW OF SYSTEMS: Ten-point system obtained. Pertinent positives discussed in my history of present illness, otherwise noncontributory. All systems that were negative were reviewed as well. SOCIAL HISTORY: Nonsmoker. FAMILY HISTORY: History of Hodgkin lymphoma in her parents. PHYSICAL EXAMINATION: VITAL SIGNS: Reviewed. Pulse ox 99% on room air. NECK: Supple. LUNGS: Clear. CARDIOVASCULAR: Regular rate. ABDOMEN: Soft. EXTREMITIES: With no pitting edema. LABORATORY DATA: Reviewed. White cell count 15.3, hemoglobin 11.2 and platelets are 400. Potassium 2.8. IMPRESSION: 1. 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 It is, however, causing mass effect upon the esophagus. 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 Could be anaplastic. This is not a thymoma. She has lost 75 pounds, which is unintentional in the last few years. 2. No significant history of tobacco use. No dyspnea. 3. History of hyperthyroidism and was on antithyroid drugs. RECOMMENDATIONS: 1. Discussed with the patient, her and also with Dr. Evans. He plans to have a CT-guided biopsy for definite diagnosis. 2. Since this is a complicated mass, which may require multiple specialties for any resection, he preferred to have her seen at . 3. Replace potassium. 4. We will be available for any further recommendation. ASYA JOHNSON MD DR: RODRI/ted JOB#: [id number] / [id number]
[2018-09-23] MEDS: POTASSIUM CHLORIDE 10MEQ 100 ML IV SCH ×4 (16:19→20:03)
--- NOTE | 2018-09-23 16:20 | PDOC2 ---
CONSULT Date of Consult Date of Consult DATE: 09/23/18 TIME: 16:13 Reason for Consult Reason for Consult: Thyroid mass with substernal component Referring Physician Referring Physician: Dr Humphrey Identification/Chief Complaint Chief Complaint Weakness Source Source: Chart review, Patient History of Present Illness Reason for Visit: The patient is a 58-year-old female who presented to our emergency room with complaints of weakness, weight loss and dysphagia. 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 Past Medical History Cardiovascular: Hyperlipidemia, Other Pulmonary: COPD CENTRAL NERVOUS SYSTEM: CVA, Periperal neuropathy GI: No pertinent hx Heme/Onc: No pertinent hx Hepatobiliary: No pertinent hx Psych: No pertinent hx Musculoskeletal: Osteoarthritis Rheumatologic: No pertinent hx Infectious disease: Other Renal/: No pertinent hx Endocrine: Diabetes, Hyperthyroidism Past Surgical History Past Surgical History: Other Family History Family History: Diabetes, Family History Unknown Social History No ALCOHOL: none Drugs: None Lives: with Family Current Problem List Problem List Problems Medical Problems: (1) Dizziness Status: Acute (2) Hypokalemia Status: Acute (3) Thyroid mass Status: Acute (4) Weakness Status: Acute Current Medications Current Medications Current Medications Sodium Chloride 1,000 ml @ 1,000 mls/hr 1X ONCE IV Last administered on 09/23/18at 08:37; Start 09/23/18 at 08:30; Stop 09/23/18 at 09:29; Status DC Potassium Chloride (Klor-Con) 40 meq 1X ONCE PO Last administered on 09/23/18at 10:17; Start 09/23/18 at 09:45; Stop 09/23/18 at 10:24; Status DC Potassium Chloride (KCl Oral Soln) 40 meq 1X ONCE PO Last administered on 09/23/18at 10:37; Start 09/23/18 at 10:30; Stop 09/23/18 at 10:31; Status DC Ondansetron HCl (Zofran) 4 mg PRN Q8HRS PRN IV NAUSEA/VOMITING; Start 09/23/18 at 11:30; Stop 09/24/18 at 11:29 Potassium Chloride (KCl Oral Soln) 40 meq 1X ONCE PO Last administered on 09/23/18at 12:56; Start 09/23/18 at 12:45; Stop 09/23/18 at 12:46; Status DC Fludrocortisone Acetate (Florinef) 0.1 mg DAILY PO ; Start 09/24/18 at 09:00 Gabapentin (Neurontin) 600 mg HS PO ; Start 09/23/18 at 21:00 Insulin Glargine (Lantus) 45 units QHS SQ ; Start 09/23/18 at 21:00 Amitriptyline HCl (Elavil) 100 mg QHS PO ; Start 09/23/18 at 21:00 Non-Formulary Medication (Insulin Aspart (Novolog Flexpen)) 1 unit TIDAC SQ ; Start 09/23/18 at 16:30; Status UNV Non-Formulary Medication (Lovastatin ) 10 mg HS PO ; Start 09/23/18 at 21:00; Status UNV Methimazole (Tapazole) 5 mg DAILY08 PO ; Start 09/24/18 at 08:00 Midodrine (Proamatine) 10 mg PRN TID PRN PO HYPOTENSION; Start 09/23/18 at 18:00 Potassium Chloride/Water 100 ml @ 100 mls/hr Q1H IV ; Start 09/23/18 at 16:00; Stop 09/23/18 at 19:59 Magnesium Sulfate/ Dextrose 100 ml @ 25 mls/hr 1X ONCE IV ; Start 09/23/18 at 16:00; Stop 09/23/18 at 19:59 Insulin Human Lispro (HumaLOG) 0-5 UNITS TIDWMEALS SQ ; Start 09/23/18 at 17:00 Dextrose (Dextrose 50%-Water Syringe) 12.5 gm PRN Q15MIN PRN IV SEE COMMENTS; Start 09/23/18 at 15:30 Active Scripts Active Keflex (Cephalexin) 500 Mg Capsule 1 Cap PO TID Fludrocortisone Acetate 0.1 Mg Tablet 0.1 Mg PO DAILY Reported Novolog Flexpen (Insulin Aspart) 100 Unit/1 Ml Insuln.pen 1 Unit SQ TIDAC Midodrine Hcl 10 Mg Tablet 10 Mg PO TID PRN Basaglar Kwikpen U-100 (Insulin Glargine,Hum.rec.anlog) 100 Unit/1 Ml Insuln.pen 45 Unit SQ DAILY08 Lovastatin 10 Mg Tablet 10 Mg PO HS Methimazole 5 Mg Tablet 5 Mg PO DAILY08 Gabapentin (Gabapentin) 300 Mg Capsule 600 Mg PO HS Amitriptyline Hcl 100 Mg Tablet 1 Tab PO QHS Allergies Allergies: Coded Allergies: atorvastatin (Verified Allergy, Severe, throat swells, 09/12/18) hydroxyzine (Verified Allergy, Severe, DIZZINESS, "I FEEL LIKE IM DRUNK", 08/16/18) raspberry (Verified Allergy, Severe, CHOKING SENSATION IN THROAT, 10/25/15) tramadol (Verified Allergy, Severe, VOMITING, 08/16/18) amoxicillin (Verified Allergy, Intermediate, 10/13/17) aspirin (Verified Allergy, Intermediate, 10/13/17) codeine (Verified Allergy, Intermediate, 10/13/17) ibuprofen (Verified Allergy, Intermediate, 10/13/17) morphine (Verified Allergy, Intermediate, 10/13/17) cephalexin (Verified Allergy, Unknown, 09/23/18) ciprofloxacin (Verified Allergy, Unknown, 09/23/18) pregabalin (Verified Allergy, Unknown, vomiting, 09/23/18) ROS General: YES: Fatigue; No: Chills, Night Sweats, Malaise, Appetite PSYCHOLOGICAL ROS: No: Anxiety, Behavioral Disorder, Concentration difficultie, Decreased libido, Depression, Disorientation, Hallucinations, Hostility, Irritablity, Memory difficulties, Mood Swings, Obsessive thoughts, Physical abuse, Sexual abuse, Sleep disturbances, Suicidal ideation Eyes: No Blurry vision, No Decreased vision, No Double vision, No Dry eyes, No Excessive tearing, No Eye Pain, No Itchy Eyes, No Loss of vision, No Photophobia, No Scotomata, No Uses contacts, No Uses glasses HEENT: No: Heacaches, Visual Changes, Hearing change, Nasal congestion, Nasal discharge, Oral lesions, Sinus pain, Sore Throat, Epistaxis, Sneezing, Snoring, Tinnitus, Vertigo, Vocal changes ALLERGY AND IMMUNOLOGY: No: Hives, Insect Bite Sensitivity, Itchy/Watery Eyes, Nasal Congestion, Post Nasal Drip, Seasonal Allergies Hematological and Lymphatic: No: Bleeding Problems, Blood Clots, Blood Transfusions, Brusing, Night Sweats, Pallor, Swollen Lymph Nodes ENDOCRINE: No: Breast Changes, Galactorrhea, Hair Pattern Changes, Hot Flashes, Malaise/lethargy, Mood Swings, Palpitations, Polydipsia/polyuria, Skin Changes, Temperature Intolerance, Unexpected Weight Changes Respiratory: No: Cough, Hemoptysis, Orthopnea, Pleuritic Pain, Shortness of breath, SOB with excertion, Sputum Changes, Stridor, Tachypnea, Wheezing Cardiovascular: No Chest Pain, No Palpitations, No Orthopnea, No Paroxysmal Noc. Dyspnea, No Edema, No Lt Headedness Gastrointestinal: Yes Other (dysphagia); No Nausea, No Vomiting, No Abdominal Pain, No Diarrhea, No Constipation, No Melena, No Hematochezia Genitourinary: No Dysuria, No Frequency, No Incontinence, No Hematuria, No Retention, No Discharge, No Urgency, No Pain, No Flank Pain Musculoskeletal: No Gait Disturbance, No Joint Pain, No Joint Stiffness, No Joint Swelling, No Muscle Pain, No Muscular Weakness, No Pain In:, No Swelling In: Neurological: No Behavorial Changes, No Bowel/Bladder ControlChng, No Confusion, No Dizziness, No Gait Disturbance, No Headaches, No Impaired Coord/balance, No Memory Loss, No Numbness/Tingling, No Seizures, No Speech Problems, No Tremors, No Visual Changes, No Weakness Skin: No Dry Skin, No Eczema, No Hair Changes, No Lumps, No Mole Changes, No Mottling, No Nail Changes, No Pruritus, No Rash, No Skin Lesion Changes, No Acne Physical Exam General: Alert, Oriented X3, No acute distress HEENT: Atraumatic, PERRLA Lungs: Clear to auscultation Heart: Regular rate Abdomen: Soft, No tenderness Extremities: No edema Skin: No significant lesion Neuro: Normal gait, Normal speech, Strength at 5/5 X4 ext, Normal tone, Sensation intact, Cranial nerves 3-12 NL, Reflexes 2+ Psych/Mental Status: Mental status NL MUSCULOSKELETAL: No deformity Vitals VITALS Vital Signs Date Time Temp Pulse Resp B/P (MAP) Pulse Ox O2 Delivery O2 Flow Rate FiO2 09/23/18 14:45 Room Air 09/23/18 13:00 98.0 85 16 141/85 (103) 99 98.0 Labs Labs Laboratory Tests Test 09/23/18 08:03 09/23/18 08:40 White Blood Count 15.3 x10^3/uL (4.0-11.0) Red Blood Count 4.23 x10^6/uL (3.50-5.40) Hemoglobin 11.2 g/dL (12.0-15.5) Hematocrit 34.6 % (36.0-47.0) Mean Corpuscular Volume 82 fL (79-100) Mean Corpuscular Hemoglobin 26 pg (25-35) Mean Corpuscular Hemoglobin Concent 32 g/dL (31-37) Red Cell Distribution Width 13.0 % (11.5-14.5) Platelet Count 400 x10^3/uL (140-400) Neutrophils (%) (Auto) 86 % (31-73) Lymphocytes (%) (Auto) 10 % (24-48) Monocytes (%) (Auto) 4 % (0-9) Eosinophils (%) (Auto) 0 % (0-3) Basophils (%) (Auto) 0 % (0-3) Neutrophils # (Auto) 13.2 x10^3uL (1.8-7.7) Lymphocytes # (Auto) 1.4 x10^3/uL (1.0-4.8) Monocytes # (Auto) 0.5 x10^3/uL (0.0-1.1) Eosinophils # (Auto) 0.1 x10^3/uL (0.0-0.7) Basophils # (Auto) 0.0 x10^3/uL (0.0-0.2) Segmented Neutrophils % 90 % (35-66) Lymphocytes % 10 % (24-48) Platelet Estimate Adequate (ADEQUATE) [place] Cells Occ Prothrombin Time 13.9 SEC (11.7-14.0) Prothromb Time International Ratio 1.1 (0.8-1.1) Sodium Level 141 mmol/L (136-145) Potassium Level 2.8 mmol/L (3.5-5.1) Chloride Level 100 mmol/L (98-107) Carbon Dioxide Level 32 mmol/L (21-32) Anion Gap 9 (6-14) Blood Urea Nitrogen 19 mg/dL (7-20) Creatinine 1.0 mg/dL (0.6-1.0) Estimated GFR (Cockcroft-Gault) 57.4 BUN/Creatinine Ratio 19 (6-20) Glucose Level 140 mg/dL (70-99) Calcium Level 9.5 mg/dL (8.5-10.1) Magnesium Level 1.6 mg/dL (1.8-2.4) Total Bilirubin 0.2 mg/dL (0.2-1.0) Aspartate Amino Transf (AST/SGOT) 18 U/L (15-37) Alanine Aminotransferase (ALT/SGPT) 17 U/L (14-59) Alkaline Phosphatase 141 U/L (46-116) Creatine Kinase 86 U/L (26-192) Creatine Kinase MB (Mass) 2.5 ng/mL (0.0-3.6) Creatine Kinase MB Relative Index 2.9 % (0-4) Troponin I Quantitative < 0.017 ng/mL (0.000-0.055) KM-Yom-X-Type Natriuretic Peptide 381 pg/mL (0-124) Total Protein 7.1 g/dL (6.4-8.2) Albumin 2.8 g/dL (3.4-5.0) Albumin/Globulin Ratio 0.7 (1.0-1.7) Thyroid Stimulating Hormone (TSH) 0.824 uIU/mL (0.358-3.74) Urine Collection Type Unknown Urine Color Yellow Urine Clarity Cloudy Urine pH 6.0 Urine Specific [place] 1.015 Urine Protein >=300 mg/dL (NEG-TRACE) Urine Glucose (UA) Negative mg/dL (NEG) Urine Ketones (Stick) Negative mg/dL (NEG) Urine Blood Moderate (NEG) Urine Nitrite Negative (NEG) Urine Bilirubin Negative (NEG) Urine Urobilinogen Dipstick 0.2 mg/dL (0.2 mg/dL) Urine Leukocyte Esterase Small (NEG) Urine RBC Occ /HPF (0-2) Urine WBC 5-10 /HPF (0-4) Urine Squamous Epithelial Cells Mod /LPF Urine Bacteria Few /HPF (0-FEW) Urine Hyaline Casts Moderate /HPF Urine Mucus Slight /LPF Urine Opiates Screen Neg (NEG) Urine Methadone Screen Neg (NEG) Urine Barbiturates Neg (NEG) Urine Phencyclidine Screen Neg (NEG) Urine Amphetamine/Methamphetamine Neg (NEG) Urine Benzodiazepines Screen Neg (NEG) Urine Cocaine Screen Neg (NEG) Urine Cannabinoids Screen Neg (NEG) Urine Ethyl Alcohol Neg (NEG) Laboratory Tests Test 09/23/18 08:03 09/23/18 08:40 White Blood Count 15.3 x10^3/uL (4.0-11.0) Red Blood Count 4.23 x10^6/uL (3.50-5.40) Hemoglobin 11.2 g/dL (12.0-15.5) Hematocrit 34.6 % (36.0-47.0) Mean Corpuscular Volume 82 fL (79-100) Mean Corpuscular Hemoglobin 26 pg (25-35) Mean Corpuscular Hemoglobin Concent 32 g/dL (31-37) Red Cell Distribution Width 13.0 % (11.5-14.5) Platelet Count 400 x10^3/uL (140-400) Neutrophils (%) (Auto) 86 % (31-73) Lymphocytes (%) (Auto) 10 % (24-48) Monocytes (%) (Auto) 4 % (0-9) Eosinophils (%) (Auto) 0 % (0-3) Basophils (%) (Auto) 0 % (0-3) Neutrophils # (Auto) 13.2 x10^3uL (1.8-7.7) Lymphocytes # (Auto) 1.4 x10^3/uL (1.0-4.8) Monocytes # (Auto) 0.5 x10^3/uL (0.0-1.1) Eosinophils # (Auto) 0.1 x10^3/uL (0.0-0.7) Basophils # (Auto) 0.0 x10^3/uL (0.0-0.2) Segmented Neutrophils % 90 % (35-66) Lymphocytes % 10 % (24-48) Platelet Estimate Adequate (ADEQUATE) [place] Cells Occ Prothrombin Time 13.9 SEC (11.7-14.0) Prothromb Time International Ratio 1.1 (0.8-1.1) Sodium Level 141 mmol/L (136-145) Potassium Level 2.8 mmol/L (3.5-5.1) Chloride Level 100 mmol/L (98-107) Carbon Dioxide Level 32 mmol/L (21-32) Anion Gap 9 (6-14) Blood Urea Nitrogen 19 mg/dL (7-20) Creatinine 1.0 mg/dL (0.6-1.0) Estimated GFR (Cockcroft-Gault) 57.4 BUN/Creatinine Ratio 19 (6-20) Glucose Level 140 mg/dL (70-99) Calcium Level 9.5 mg/dL (8.5-10.1) Magnesium Level 1.6 mg/dL (1.8-2.4) Total Bilirubin 0.2 mg/dL (0.2-1.0) Aspartate Amino Transf (AST/SGOT) 18 U/L (15-37) Alanine Aminotransferase (ALT/SGPT) 17 U/L (14-59) Alkaline Phosphatase 141 U/L (46-116) Creatine Kinase 86 U/L (26-192) Creatine Kinase MB (Mass) 2.5 ng/mL (0.0-3.6) Creatine Kinase MB Relative Index 2.9 % (0-4) Troponin I Quantitative < 0.017 ng/mL (0.000-0.055) YF-Zbi-G-Type Natriuretic Peptide 381 pg/mL (0-124) Total Protein 7.1 g/dL (6.4-8.2) Albumin 2.8 g/dL (3.4-5.0) Albumin/Globulin Ratio 0.7 (1.0-1.7) Thyroid Stimulating Hormone (TSH) 0.824 uIU/mL (0.358-3.74) Urine Collection Type Unknown Urine Color Yellow Urine Clarity Cloudy Urine pH 6.0 Urine Specific [place] 1.015 Urine Protein >=300 mg/dL (NEG-TRACE) Urine Glucose (UA) Negative mg/dL (NEG) Urine Ketones (Stick) Negative mg/dL (NEG) Urine Blood Moderate (NEG) Urine Nitrite Negative (NEG) Urine Bilirubin Negative (NEG) Urine Urobilinogen Dipstick 0.2 mg/dL (0.2 mg/dL) Urine Leukocyte Esterase Small (NEG) Urine RBC Occ /HPF (0-2) Urine WBC 5-10 /HPF (0-4) Urine Squamous Epithelial Cells Mod /LPF Urine Bacteria Few /HPF (0-FEW) Urine Hyaline Casts Moderate /HPF Urine Mucus Slight /LPF Urine Opiates Screen Neg (NEG) Urine Methadone Screen Neg (NEG) Urine Barbiturates Neg (NEG) Urine Phencyclidine Screen Neg (NEG) Urine Amphetamine/Methamphetamine Neg (NEG) Urine Benzodiazepines Screen Neg (NEG) Urine Cocaine Screen Neg (NEG) Urine Cannabinoids Screen Neg (NEG) Urine Ethyl Alcohol Neg (NEG) Images Images CT chest 1. 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 This does result in deviation of the trachea to the right. In addition, the esophagus appears compressed between the mass and the spine. 2. Small pericardial effusion. 3. Mild splenomegaly. Assessment/Plan Assessment/Plan The patient is a 58-year-old female who presented to our emergency room with complaints of weakness, weight loss and dysphagia. 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 The mass is compressing the trachea and the esophagus. The patient is awaiting a biopsy. Depending on the biopsy results she may require a thyroidectomy. If this is the case, I would be happy to assist the thyroid surgeon with the substernal component by performing a sternotomy. АНДРЕЙ CARROLL MD September 23, 2018 16:20
[2018-09-23] MEDS ORDERED: NON FORMULARY ITEM (Insulin Aspart (Novolog Flexpen) 1 UNIT) SQ SCH (16:30)
[2018-09-23] MEDS: INSULIN LISPRO 300 UNITS/3 ML INSULN.PEN. SQ SCH (17:00)
[2018-09-23] MEDS ORDERED: MIDODRINE 5 MG TABLET PO PRN (18:00)
[2018-09-23 19:05] VITALS: BP 166/91
[2018-09-23] MEDS: AMITRIPTYLINE HCL 25 MG TABLET. PO SCH (20:04)
[2018-09-23] MEDS: GABAPENTIN 300 MG CAPSULE. PO SCH (20:04)
[2018-09-23] MEDS: LOVASTATIN 10 MG PO SCH (21:00)
[2018-09-23] MEDS ORDERED: INSULIN GLARGINE 300 UNITS/3 ML INSULN.PEN. SQ SCH (21:00)
[2018-09-23 23:28] VITALS: BP 132/64
[2018-09-24 03:26] VITALS: BP 113/68
[2018-09-24 05:35] LABS: CALCIUM 9.1 mg/dL (8.5-10.1); CREATININE 0.7 mg/dL (0.6-1.0); GFR 86.6; POTASSIUM 3.3 mmol/L (3.5-5.1)
[2018-09-24 07:31] VITALS: BP 137/79
[2018-09-24 08:00] LABS: BASO % 0 % (0-3); EOS # 0.4 x10^3/uL (0.0-0.7); EOS % 5 % (0-3); HEMATOCRIT 31.3 % (36.0-47.0); HEMOGLOBIN 10.4 g/dL (12.0-15.5); LYMPH # 1.8 x10^3/uL (1.0-4.8); LYMPH % 27 % (24-48); MEAN CORPUSCULAR HEMOGLOBIN 27 pg (25-35); MEAN CORPUSCULAR HGB CONC 33 g/dL (31-37); MEAN CORPUSCULAR VOLUME 82 fL (79-100); MONO # 0.6 x10^3/uL (0.0-1.1); MONO % 8 % (0-9); NEUT % 59 % (31-73); PLATELET COUNT 322 x10^3/uL (140-400); RED CELL DISTRIBUTION WIDTH 12.9 % (11.5-14.5); WHITE BLOOD COUNT 6.8 x10^3/uL (4.0-11.0)
[2018-09-24] MEDS: INSULIN LISPRO 300 UNITS/3 ML INSULN.PEN. SQ SCH ×3 (08:00→17:40)
[2018-09-24] MEDS: methIMAzole 10 MG TABLET PO SCH (08:46)
[2018-09-24] MEDS: FLUDROCORTISONE 0.1 MG TABLET PO SCH (08:46)
--- NOTE | 2018-09-24 09:03 | PDOC ---
SURGICAL PROGRESS NOTE Subjective Patient doing well this morning no real complaints Vital Signs Vital Signs Date Time Temp Pulse Resp B/P (MAP) Pulse Ox O2 Delivery O2 Flow Rate FiO2 09/24/18 07:31 98.0 84 14 137/79 (98) 96 Room Air 98.0 I&O Intake and Output 09/24/18 07:00 Intake Total 300 ml Output Total 700 ml Balance -400 ml Intake Oral 200 ml Other 100 ml Output Urine Total 700 ml # Voids 2 # Bowel Movements 3 PATIENT HAS A MONTALVO: No General: Alert, Oriented X3, Cooperative, No acute distress Labs Laboratory Tests Test 09/23/18 08:03 09/23/18 08:40 09/23/18 17:08 09/23/18 21:28 White Blood Count 15.3 x10^3/uL (4.0-11.0) Red Blood Count 4.23 x10^6/uL (3.50-5.40) Hemoglobin 11.2 g/dL (12.0-15.5) Hematocrit 34.6 % (36.0-47.0) Mean Corpuscular Volume 82 fL (79-100) Mean Corpuscular Hemoglobin 26 pg (25-35) Mean Corpuscular Hemoglobin Concent 32 g/dL (31-37) Red Cell Distribution Width 13.0 % (11.5-14.5) Platelet Count 400 x10^3/uL (140-400) Neutrophils (%) (Auto) 86 % (31-73) Lymphocytes (%) (Auto) 10 % (24-48) Monocytes (%) (Auto) 4 % (0-9) Eosinophils (%) (Auto) 0 % (0-3) Basophils (%) (Auto) 0 % (0-3) Neutrophils # (Auto) 13.2 x10^3uL (1.8-7.7) Lymphocytes # (Auto) 1.4 x10^3/uL (1.0-4.8) Monocytes # (Auto) 0.5 x10^3/uL (0.0-1.1) Eosinophils # (Auto) 0.1 x10^3/uL (0.0-0.7) Basophils # (Auto) 0.0 x10^3/uL (0.0-0.2) Segmented Neutrophils % 90 % (35-66) Lymphocytes % 10 % (24-48) Platelet Estimate Adequate (ADEQUATE) [place] Cells Occ Prothrombin Time 13.9 SEC (11.7-14.0) Prothromb Time International Ratio 1.1 (0.8-1.1) Sodium Level 141 mmol/L (136-145) Potassium Level 2.8 mmol/L (3.5-5.1) Chloride Level 100 mmol/L (98-107) Carbon Dioxide Level 32 mmol/L (21-32) Anion Gap 9 (6-14) Blood Urea Nitrogen 19 mg/dL (7-20) Creatinine 1.0 mg/dL (0.6-1.0) Estimated GFR (Cockcroft-Gault) 57.4 BUN/Creatinine Ratio 19 (6-20) Glucose Level 140 mg/dL (70-99) Calcium Level 9.5 mg/dL (8.5-10.1) Magnesium Level 1.6 mg/dL (1.8-2.4) Total Bilirubin 0.2 mg/dL (0.2-1.0) Aspartate Amino Transf (AST/SGOT) 18 U/L (15-37) Alanine Aminotransferase (ALT/SGPT) 17 U/L (14-59) Alkaline Phosphatase 141 U/L (46-116) Creatine Kinase 86 U/L (26-192) Creatine Kinase MB (Mass) 2.5 ng/mL (0.0-3.6) Creatine Kinase MB Relative Index 2.9 % (0-4) Troponin I Quantitative < 0.017 ng/mL (0.000-0.055) OY-Lod-T-Type Natriuretic Peptide 381 pg/mL (0-124) Total Protein 7.1 g/dL (6.4-8.2) Albumin 2.8 g/dL (3.4-5.0) Albumin/Globulin Ratio 0.7 (1.0-1.7) Thyroid Stimulating Hormone (TSH) 0.824 uIU/mL (0.358-3.74) Urine Collection Type Unknown Urine Color Yellow Urine Clarity Cloudy Urine pH 6.0 Urine Specific [place] 1.015 Urine Protein >=300 mg/dL (NEG-TRACE) Urine Glucose (UA) Negative mg/dL (NEG) Urine Ketones (Stick) Negative mg/dL (NEG) Urine Blood Moderate (NEG) Urine Nitrite Negative (NEG) Urine Bilirubin Negative (NEG) Urine Urobilinogen Dipstick 0.2 mg/dL (0.2 mg/dL) Urine Leukocyte Esterase Small (NEG) Urine RBC Occ /HPF (0-2) Urine WBC 5-10 /HPF (0-4) Urine Squamous Epithelial Cells Mod /LPF Urine Bacteria Few /HPF (0-FEW) Urine Hyaline Casts Moderate /HPF Urine Mucus Slight /LPF Urine Opiates Screen Neg (NEG) Urine Methadone Screen Neg (NEG) Urine Barbiturates Neg (NEG) Urine Phencyclidine Screen Neg (NEG) Urine Amphetamine/Methamphetamine Neg (NEG) Urine Benzodiazepines Screen Neg (NEG) Urine Cocaine Screen Neg (NEG) Urine Cannabinoids Screen Neg (NEG) Urine Ethyl Alcohol Neg (NEG) Glucose (Fingerstick) 65 mg/dL (70-99) 176 mg/dL (70-99) Test 09/24/18 04:15 09/24/18 06:55 09/24/18 07:29 09/24/18 08:25 Sodium Level 149 mmol/L (136-145) Potassium Level 3.3 mmol/L (3.5-5.1) Chloride Level 110 mmol/L (98-107) Carbon Dioxide Level 31 mmol/L (21-32) Anion Gap 8 (6-14) Blood Urea Nitrogen 13 mg/dL (7-20) Creatinine 0.7 mg/dL (0.6-1.0) Estimated GFR (Cockcroft-Gault) 86.6 Glucose Level 54 mg/dL (70-99) Calcium Level 9.1 mg/dL (8.5-10.1) White Blood Count 6.8 x10^3/uL (4.0-11.0) Red Blood Count 3.80 x10^6/uL (3.50-5.40) Hemoglobin 10.4 g/dL (12.0-15.5) Hematocrit 31.3 % (36.0-47.0) Mean Corpuscular Volume 82 fL (79-100) Mean Corpuscular Hemoglobin 27 pg (25-35) Mean Corpuscular Hemoglobin Concent 33 g/dL (31-37) Red Cell Distribution Width 12.9 % (11.5-14.5) Platelet Count 322 x10^3/uL (140-400) Neutrophils (%) (Auto) 59 % (31-73) Lymphocytes (%) (Auto) 27 % (24-48) Monocytes (%) (Auto) 8 % (0-9) Eosinophils (%) (Auto) 5 % (0-3) Basophils (%) (Auto) 0 % (0-3) Neutrophils # (Auto) 4.0 x10^3uL (1.8-7.7) Lymphocytes # (Auto) 1.8 x10^3/uL (1.0-4.8) Monocytes # (Auto) 0.6 x10^3/uL (0.0-1.1) Eosinophils # (Auto) 0.4 x10^3/uL (0.0-0.7) Basophils # (Auto) 0.0 x10^3/uL (0.0-0.2) Glucose (Fingerstick) 55 mg/dL (70-99) 89 mg/dL (70-99) Laboratory Tests Test 09/23/18 17:08 09/23/18 21:28 09/24/18 04:15 09/24/18 06:55 Glucose (Fingerstick) 65 mg/dL (70-99) 176 mg/dL (70-99) Sodium Level 149 mmol/L (136-145) Potassium Level 3.3 mmol/L (3.5-5.1) Chloride Level 110 mmol/L (98-107) Carbon Dioxide Level 31 mmol/L (21-32) Anion Gap 8 (6-14) Blood Urea Nitrogen 13 mg/dL (7-20) Creatinine 0.7 mg/dL (0.6-1.0) Estimated GFR (Cockcroft-Gault) 86.6 Glucose Level 54 mg/dL (70-99) Calcium Level 9.1 mg/dL (8.5-10.1) White Blood Count 6.8 x10^3/uL (4.0-11.0) Red Blood Count 3.80 x10^6/uL (3.50-5.40) Hemoglobin 10.4 g/dL (12.0-15.5) Hematocrit 31.3 % (36.0-47.0) Mean Corpuscular Volume 82 fL (79-100) Mean Corpuscular Hemoglobin 27 pg (25-35) Mean Corpuscular Hemoglobin Concent 33 g/dL (31-37) Red Cell Distribution Width 12.9 % (11.5-14.5) Platelet Count 322 x10^3/uL (140-400) Neutrophils (%) (Auto) 59 % (31-73) Lymphocytes (%) (Auto) 27 % (24-48) Monocytes (%) (Auto) 8 % (0-9) Eosinophils (%) (Auto) 5 % (0-3) Basophils (%) (Auto) 0 % (0-3) Neutrophils # (Auto) 4.0 x10^3uL (1.8-7.7) Lymphocytes # (Auto) 1.8 x10^3/uL (1.0-4.8) Monocytes # (Auto) 0.6 x10^3/uL (0.0-1.1) Eosinophils # (Auto) 0.4 x10^3/uL (0.0-0.7) Basophils # (Auto) 0.0 x10^3/uL (0.0-0.2) Test 09/24/18 07:29 09/24/18 08:25 Glucose (Fingerstick) 55 mg/dL (70-99) 89 mg/dL (70-99) Problem List Problems Medical Problems: (1) Dizziness Status: Acute (2) Hypokalemia Status: Acute (3) Thyroid mass Status: Acute (4) Weakness Status: Acute Assessment/Plan Large thyroid mass substernal. Appreciate [facility] input and help Awaiting biopsy results for further plan of action PARMINDER INGRAM MD Sep 24, 2018 09:03
[2018-09-24 10:56] VITALS: BP 168/102
--- NOTE | 2018-09-24 11:22 | PDOC ---
PULMONARY PROGRESS NOTES Subjective no soa Vitals Vital Signs Date Time Temp Pulse Resp B/P (MAP) Pulse Ox O2 Delivery O2 Flow Rate FiO2 09/24/18 10:56 97.9 90 18 168/102 (124) 98 Room Air 97.9 General: Alert, No acute distress Lungs: Clear Cardiovascular: S1 Abdomen: Soft Neuro Exam: Alert Extremities: No Edema Skin: Warm Labs Laboratory Tests Test 09/23/18 08:03 09/23/18 08:40 09/23/18 17:08 09/23/18 21:28 White Blood Count 15.3 x10^3/uL (4.0-11.0) Red Blood Count 4.23 x10^6/uL (3.50-5.40) Hemoglobin 11.2 g/dL (12.0-15.5) Hematocrit 34.6 % (36.0-47.0) Mean Corpuscular Volume 82 fL (79-100) Mean Corpuscular Hemoglobin 26 pg (25-35) Mean Corpuscular Hemoglobin Concent 32 g/dL (31-37) Red Cell Distribution Width 13.0 % (11.5-14.5) Platelet Count 400 x10^3/uL (140-400) Neutrophils (%) (Auto) 86 % (31-73) Lymphocytes (%) (Auto) 10 % (24-48) Monocytes (%) (Auto) 4 % (0-9) Eosinophils (%) (Auto) 0 % (0-3) Basophils (%) (Auto) 0 % (0-3) Neutrophils # (Auto) 13.2 x10^3uL (1.8-7.7) Lymphocytes # (Auto) 1.4 x10^3/uL (1.0-4.8) Monocytes # (Auto) 0.5 x10^3/uL (0.0-1.1) Eosinophils # (Auto) 0.1 x10^3/uL (0.0-0.7) Basophils # (Auto) 0.0 x10^3/uL (0.0-0.2) Segmented Neutrophils % 90 % (35-66) Lymphocytes % 10 % (24-48) Platelet Estimate Adequate (ADEQUATE) [place] Cells Occ Prothrombin Time 13.9 SEC (11.7-14.0) Prothromb Time International Ratio 1.1 (0.8-1.1) Sodium Level 141 mmol/L (136-145) Potassium Level 2.8 mmol/L (3.5-5.1) Chloride Level 100 mmol/L (98-107) Carbon Dioxide Level 32 mmol/L (21-32) Anion Gap 9 (6-14) Blood Urea Nitrogen 19 mg/dL (7-20) Creatinine 1.0 mg/dL (0.6-1.0) Estimated GFR (Cockcroft-Gault) 57.4 BUN/Creatinine Ratio 19 (6-20) Glucose Level 140 mg/dL (70-99) Calcium Level 9.5 mg/dL (8.5-10.1) Magnesium Level 1.6 mg/dL (1.8-2.4) Total Bilirubin 0.2 mg/dL (0.2-1.0) Aspartate Amino Transf (AST/SGOT) 18 U/L (15-37) Alanine Aminotransferase (ALT/SGPT) 17 U/L (14-59) Alkaline Phosphatase 141 U/L (46-116) Creatine Kinase 86 U/L (26-192) Creatine Kinase MB (Mass) 2.5 ng/mL (0.0-3.6) Creatine Kinase MB Relative Index 2.9 % (0-4) Troponin I Quantitative < 0.017 ng/mL (0.000-0.055) UQ-Tbw-D-Type Natriuretic Peptide 381 pg/mL (0-124) Total Protein 7.1 g/dL (6.4-8.2) Albumin 2.8 g/dL (3.4-5.0) Albumin/Globulin Ratio 0.7 (1.0-1.7) Thyroid Stimulating Hormone (TSH) 0.824 uIU/mL (0.358-3.74) Urine Collection Type Unknown Urine Color Yellow Urine Clarity Cloudy Urine pH 6.0 Urine Specific [place] 1.015 Urine Protein >=300 mg/dL (NEG-TRACE) Urine Glucose (UA) Negative mg/dL (NEG) Urine Ketones (Stick) Negative mg/dL (NEG) Urine Blood Moderate (NEG) Urine Nitrite Negative (NEG) Urine Bilirubin Negative (NEG) Urine Urobilinogen Dipstick 0.2 mg/dL (0.2 mg/dL) Urine Leukocyte Esterase Small (NEG) Urine RBC Occ /HPF (0-2) Urine WBC 5-10 /HPF (0-4) Urine Squamous Epithelial Cells Mod /LPF Urine Bacteria Few /HPF (0-FEW) Urine Hyaline Casts Moderate /HPF Urine Mucus Slight /LPF Urine Opiates Screen Neg (NEG) Urine Methadone Screen Neg (NEG) Urine Barbiturates Neg (NEG) Urine Phencyclidine Screen Neg (NEG) Urine Amphetamine/Methamphetamine Neg (NEG) Urine Benzodiazepines Screen Neg (NEG) Urine Cocaine Screen Neg (NEG) Urine Cannabinoids Screen Neg (NEG) Urine Ethyl Alcohol Neg (NEG) Glucose (Fingerstick) 65 mg/dL (70-99) 176 mg/dL (70-99) Test 09/24/18 04:15 09/24/18 06:55 09/24/18 07:29 09/24/18 08:25 Sodium Level 149 mmol/L (136-145) Potassium Level 3.3 mmol/L (3.5-5.1) Chloride Level 110 mmol/L (98-107) Carbon Dioxide Level 31 mmol/L (21-32) Anion Gap 8 (6-14) Blood Urea Nitrogen 13 mg/dL (7-20) Creatinine 0.7 mg/dL (0.6-1.0) Estimated GFR (Cockcroft-Gault) 86.6 Glucose Level 54 mg/dL (70-99) Calcium Level 9.1 mg/dL (8.5-10.1) White Blood Count 6.8 x10^3/uL (4.0-11.0) Red Blood Count 3.80 x10^6/uL (3.50-5.40) Hemoglobin 10.4 g/dL (12.0-15.5) Hematocrit 31.3 % (36.0-47.0) Mean Corpuscular Volume 82 fL (79-100) Mean Corpuscular Hemoglobin 27 pg (25-35) Mean Corpuscular Hemoglobin Concent 33 g/dL (31-37) Red Cell Distribution Width 12.9 % (11.5-14.5) Platelet Count 322 x10^3/uL (140-400) Neutrophils (%) (Auto) 59 % (31-73) Lymphocytes (%) (Auto) 27 % (24-48) Monocytes (%) (Auto) 8 % (0-9) Eosinophils (%) (Auto) 5 % (0-3) Basophils (%) (Auto) 0 % (0-3) Neutrophils # (Auto) 4.0 x10^3uL (1.8-7.7) Lymphocytes # (Auto) 1.8 x10^3/uL (1.0-4.8) Monocytes # (Auto) 0.6 x10^3/uL (0.0-1.1) Eosinophils # (Auto) 0.4 x10^3/uL (0.0-0.7) Basophils # (Auto) 0.0 x10^3/uL (0.0-0.2) Glucose (Fingerstick) 55 mg/dL (70-99) 89 mg/dL (70-99) Laboratory Tests Test 09/23/18 17:08 09/23/18 21:28 09/24/18 04:15 09/24/18 06:55 Glucose (Fingerstick) 65 mg/dL (70-99) 176 mg/dL (70-99) Sodium Level 149 mmol/L (136-145) Potassium Level 3.3 mmol/L (3.5-5.1) Chloride Level 110 mmol/L (98-107) Carbon Dioxide Level 31 mmol/L (21-32) Anion Gap 8 (6-14) Blood Urea Nitrogen 13 mg/dL (7-20) Creatinine 0.7 mg/dL (0.6-1.0) Estimated GFR (Cockcroft-Gault) 86.6 Glucose Level 54 mg/dL (70-99) Calcium Level 9.1 mg/dL (8.5-10.1) White Blood Count 6.8 x10^3/uL (4.0-11.0) Red Blood Count 3.80 x10^6/uL (3.50-5.40) Hemoglobin 10.4 g/dL (12.0-15.5) Hematocrit 31.3 % (36.0-47.0) Mean Corpuscular Volume 82 fL (79-100) Mean Corpuscular Hemoglobin 27 pg (25-35) Mean Corpuscular Hemoglobin Concent 33 g/dL (31-37) Red Cell Distribution Width 12.9 % (11.5-14.5) Platelet Count 322 x10^3/uL (140-400) Neutrophils (%) (Auto) 59 % (31-73) Lymphocytes (%) (Auto) 27 % (24-48) Monocytes (%) (Auto) 8 % (0-9) Eosinophils (%) (Auto) 5 % (0-3) Basophils (%) (Auto) 0 % (0-3) Neutrophils # (Auto) 4.0 x10^3uL (1.8-7.7) Lymphocytes # (Auto) 1.8 x10^3/uL (1.0-4.8) Monocytes # (Auto) 0.6 x10^3/uL (0.0-1.1) Eosinophils # (Auto) 0.4 x10^3/uL (0.0-0.7) Basophils # (Auto) 0.0 x10^3/uL (0.0-0.2) Test 09/24/18 07:29 09/24/18 08:25 Glucose (Fingerstick) 55 mg/dL (70-99) 89 mg/dL (70-99) Medications Active Scripts Medications Dose Route/Sig Max Daily Dose Days Date Category Novolog Flexpen (Insulin Aspart) 100 Unit/1 Ml Insuln.pen 1 Unit SQ TIDAC 09/23/18 Reported Midodrine Hcl 10 Mg Tablet 10 Mg PO TID PRN 09/23/18 Reported Keflex (Cephalexin) 500 Mg Capsule 1 Cap PO TID 09/14/18 Rx Basaglar Kwikpen U-100 (Insulin Glargine,Hum.rec.anlog) 100 Unit/1 Ml Insuln.pen 45 Unit SQ DAILY08 09/12/18 Reported Lovastatin 10 Mg Tablet 10 Mg PO HS 08/23/18 Reported Methimazole 5 Mg Tablet 5 Mg PO DAILY08 06/07/18 Reported Gabapentin (Gabapentin) 300 Mg Capsule 600 Mg PO HS 06/07/18 Reported Amitriptyline Hcl 100 Mg Tablet 1 Tab PO QHS 06/07/18 Reported Fludrocortisone Acetate 0.1 Mg Tablet 0.1 Mg PO DAILY 11/08/17 Rx Impression . 1. 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 It is, however, causing mass effect upon the esophagus. 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 Could be anaplastic. This is not a thymoma. She has lost 75 pounds, which is unintentional in the last few years. 2. No significant history of tobacco use. No dyspnea. 3. History of hyperthyroidism and was on antithyroid drugs. Plan . 1. Discussed with the patient, her and also with Dr. Evans. He plans to have a CT-guided biopsy for definite diagnosis Wednesday 2. Since this is a complicated mass, which may require multiple specialties for any resection, he preferred to have her seen at ./ [facility] 3. Replace potassium. 4. We will be available for any further recommendation. Not much to add Pulmonary goodman ASYA JOHNSON MD Sep 24, 2018 11:22
--- NOTE | 2018-09-24 11:47 | PDOC ---
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 Consulted general surgery and pulmonology. Will likely need tertiary care center where ENT and CT surgery are available given the size and scope of this mass. D/w CT surgery for opinion as well. Can have GI soft diet DM - unclear if she is type 1. States she sees Dr. Chicas at [facility] through [facility]. Will obtain her records Hyperthyroidism - states she has been on methimazole since April 2018, sees above legal support manager. Will need her records for prior FNA and find her old ultrasound as well. TSH WNL currently on methimazole ?[place] disease - on florinef. K and mag low. NA up today Hypokalemia - likely RTA or addisonian, will replete Hypomagnesemia - will replete Dysphagia - for solids - likely 2/2 esophageal compression from superior mediastinal mass Abnormal weight loss - concerning for possible underlying malignancy FEN - GI soft diet, replace K PPX - Lovenox until biopsy Wednesday FULL CODE Inpatient for mediastinal mass interfering with eating. Concerning for malignancy History of Present Illness History of Present Illness Ms Wright is a 58 year old female w/ PMHx HTN, diabetes mellitus, prior CVA, hyperthyroidism who presents to the ED today complaining of dizziness and generalized weakness since yesterday. She states today she was at work and a vp security was walking around and informed her she didn't look right and called 911. Patient denies anything specific and exacerbating or relieving her symptoms. Denies any chest pain or shortness of breath On ROS she notes recent weakness and weight loss. She has lost 75 pounds,which is unintentional in the last few years. CXR revealed tracheal deviation. CT of the chest was done which showed large neck mass extending into the mediastinum. She does recently have some trouble swallowing solids. Denies pain. K and Mag were both profoundly low 2.8 and 1.6, respectively. Seen by general surgery, pulmonology, and CT surgery in consultation. There is concern this is a thyroid malignancy. 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 K 3.3 this morning, mag pending. She wishes to advance her diet. Vitals Vitals Vital Signs Date Time Temp Pulse Resp B/P (MAP) Pulse Ox O2 Delivery O2 Flow Rate FiO2 09/24/18 10:56 97.9 90 18 168/102 (124) 98 Room Air 97.9 Physical Exam General: Alert, Oriented X3, Cooperative, No acute distress Heart: Regular rate Lungs: Clear Abdomen: Soft, No tenderness Extremities: No edema Skin: No significant lesion Labs LABS Laboratory Tests Test 09/23/18 17:08 09/23/18 21:28 09/24/18 04:15 09/24/18 06:55 Glucose (Fingerstick) 65 mg/dL (70-99) 176 mg/dL (70-99) Sodium Level 149 mmol/L (136-145) Potassium Level 3.3 mmol/L (3.5-5.1) Chloride Level 110 mmol/L (98-107) Carbon Dioxide Level 31 mmol/L (21-32) Anion Gap 8 (6-14) Blood Urea Nitrogen 13 mg/dL (7-20) Creatinine 0.7 mg/dL (0.6-1.0) Estimated GFR (Cockcroft-Gault) 86.6 Glucose Level 54 mg/dL (70-99) Calcium Level 9.1 mg/dL (8.5-10.1) White Blood Count 6.8 x10^3/uL (4.0-11.0) Red Blood Count 3.80 x10^6/uL (3.50-5.40) Hemoglobin 10.4 g/dL (12.0-15.5) Hematocrit 31.3 % (36.0-47.0) Mean Corpuscular Volume 82 fL (79-100) Mean Corpuscular Hemoglobin 27 pg (25-35) Mean Corpuscular Hemoglobin Concent 33 g/dL (31-37) Red Cell Distribution Width 12.9 % (11.5-14.5) Platelet Count 322 x10^3/uL (140-400) Neutrophils (%) (Auto) 59 % (31-73) Lymphocytes (%) (Auto) 27 % (24-48) Monocytes (%) (Auto) 8 % (0-9) Eosinophils (%) (Auto) 5 % (0-3) Basophils (%) (Auto) 0 % (0-3) Neutrophils # (Auto) 4.0 x10^3uL (1.8-7.7) Lymphocytes # (Auto) 1.8 x10^3/uL (1.0-4.8) Monocytes # (Auto) 0.6 x10^3/uL (0.0-1.1) Eosinophils # (Auto) 0.4 x10^3/uL (0.0-0.7) Basophils # (Auto) 0.0 x10^3/uL (0.0-0.2) Test 09/24/18 07:29 09/24/18 08:25 09/24/18 11:23 Glucose (Fingerstick) 55 mg/dL (70-99) 89 mg/dL (70-99) 197 mg/dL (70-99) Assessment and Plan Assessmemt and Plan Problems Medical Problems: (1) Dizziness Status: Acute (2) Hypokalemia Status: Acute (3) Thyroid mass Status: Acute (4) Weakness Status: Acute Comment Review of Relevant I have reviewed the following items zurdo (where applicable) has been applied. Labs Laboratory Tests Test 09/23/18 08:03 09/23/18 08:40 09/23/18 17:08 09/23/18 21:28 White Blood Count 15.3 x10^3/uL (4.0-11.0) Red Blood Count 4.23 x10^6/uL (3.50-5.40) Hemoglobin 11.2 g/dL (12.0-15.5) Hematocrit 34.6 % (36.0-47.0) Mean Corpuscular Volume 82 fL (79-100) Mean Corpuscular Hemoglobin 26 pg (25-35) Mean Corpuscular Hemoglobin Concent 32 g/dL (31-37) Red Cell Distribution Width 13.0 % (11.5-14.5) Platelet Count 400 x10^3/uL (140-400) Neutrophils (%) (Auto) 86 % (31-73) Lymphocytes (%) (Auto) 10 % (24-48) Monocytes (%) (Auto) 4 % (0-9) Eosinophils (%) (Auto) 0 % (0-3) Basophils (%) (Auto) 0 % (0-3) Neutrophils # (Auto) 13.2 x10^3uL (1.8-7.7) Lymphocytes # (Auto) 1.4 x10^3/uL (1.0-4.8) Monocytes # (Auto) 0.5 x10^3/uL (0.0-1.1) Eosinophils # (Auto) 0.1 x10^3/uL (0.0-0.7) Basophils # (Auto) 0.0 x10^3/uL (0.0-0.2) Segmented Neutrophils % 90 % (35-66) Lymphocytes % 10 % (24-48) Platelet Estimate Adequate (ADEQUATE) [place] Cells Occ Prothrombin Time 13.9 SEC (11.7-14.0) Prothromb Time International Ratio 1.1 (0.8-1.1) Sodium Level 141 mmol/L (136-145) Potassium Level 2.8 mmol/L (3.5-5.1) Chloride Level 100 mmol/L (98-107) Carbon Dioxide Level 32 mmol/L (21-32) Anion Gap 9 (6-14) Blood Urea Nitrogen 19 mg/dL (7-20) Creatinine 1.0 mg/dL (0.6-1.0) Estimated GFR (Cockcroft-Gault) 57.4 BUN/Creatinine Ratio 19 (6-20) Glucose Level 140 mg/dL (70-99) Calcium Level 9.5 mg/dL (8.5-10.1) Magnesium Level 1.6 mg/dL (1.8-2.4) Total Bilirubin 0.2 mg/dL (0.2-1.0) Aspartate Amino Transf (AST/SGOT) 18 U/L (15-37) Alanine Aminotransferase (ALT/SGPT) 17 U/L (14-59) Alkaline Phosphatase 141 U/L (46-116) Creatine Kinase 86 U/L (26-192) Creatine Kinase MB (Mass) 2.5 ng/mL (0.0-3.6) Creatine Kinase MB Relative Index 2.9 % (0-4) Troponin I Quantitative < 0.017 ng/mL (0.000-0.055) MO-Mjt-N-Type Natriuretic Peptide 381 pg/mL (0-124) Total Protein 7.1 g/dL (6.4-8.2) Albumin 2.8 g/dL (3.4-5.0) Albumin/Globulin Ratio 0.7 (1.0-1.7) Thyroid Stimulating Hormone (TSH) 0.824 uIU/mL (0.358-3.74) Urine Collection Type Unknown Urine Color Yellow Urine Clarity Cloudy Urine pH 6.0 Urine Specific [place] 1.015 Urine Protein >=300 mg/dL (NEG-TRACE) Urine Glucose (UA) Negative mg/dL (NEG) Urine Ketones (Stick) Negative mg/dL (NEG) Urine Blood Moderate (NEG) Urine Nitrite Negative (NEG) Urine Bilirubin Negative (NEG) Urine Urobilinogen Dipstick 0.2 mg/dL (0.2 mg/dL) Urine Leukocyte Esterase Small (NEG) Urine RBC Occ /HPF (0-2) Urine WBC 5-10 /HPF (0-4) Urine Squamous Epithelial Cells Mod /LPF Urine Bacteria Few /HPF (0-FEW) Urine Hyaline Casts Moderate /HPF Urine Mucus Slight /LPF Urine Opiates Screen Neg (NEG) Urine Methadone Screen Neg (NEG) Urine Barbiturates Neg (NEG) Urine Phencyclidine Screen Neg (NEG) Urine Amphetamine/Methamphetamine Neg (NEG) Urine Benzodiazepines Screen Neg (NEG) Urine Cocaine Screen Neg (NEG) Urine Cannabinoids Screen Neg (NEG) Urine Ethyl Alcohol Neg (NEG) Glucose (Fingerstick) 65 mg/dL (70-99) 176 mg/dL (70-99) Test 09/24/18 04:15 09/24/18 06:55 09/24/18 07:29 09/24/18 08:25 Sodium Level 149 mmol/L (136-145) Potassium Level 3.3 mmol/L (3.5-5.1) Chloride Level 110 mmol/L (98-107) Carbon Dioxide Level 31 mmol/L (21-32) Anion Gap 8 (6-14) Blood Urea Nitrogen 13 mg/dL (7-20) Creatinine 0.7 mg/dL (0.6-1.0) Estimated GFR (Cockcroft-Gault) 86.6 Glucose Level 54 mg/dL (70-99) Calcium Level 9.1 mg/dL (8.5-10.1) White Blood Count 6.8 x10^3/uL (4.0-11.0) Red Blood Count 3.80 x10^6/uL (3.50-5.40) Hemoglobin 10.4 g/dL (12.0-15.5) Hematocrit 31.3 % (36.0-47.0) Mean Corpuscular Volume 82 fL (79-100) Mean Corpuscular Hemoglobin 27 pg (25-35) Mean Corpuscular Hemoglobin Concent 33 g/dL (31-37) Red Cell Distribution Width 12.9 % (11.5-14.5) Platelet Count 322 x10^3/uL (140-400) Neutrophils (%) (Auto) 59 % (31-73) Lymphocytes (%) (Auto) 27 % (24-48) Monocytes (%) (Auto) 8 % (0-9) Eosinophils (%) (Auto) 5 % (0-3) Basophils (%) (Auto) 0 % (0-3) Neutrophils # (Auto) 4.0 x10^3uL (1.8-7.7) Lymphocytes # (Auto) 1.8 x10^3/uL (1.0-4.8) Monocytes # (Auto) 0.6 x10^3/uL (0.0-1.1) Eosinophils # (Auto) 0.4 x10^3/uL (0.0-0.7) Basophils # (Auto) 0.0 x10^3/uL (0.0-0.2) Glucose (Fingerstick) 55 mg/dL (70-99) 89 mg/dL (70-99) Test 09/24/18 11:23 Glucose (Fingerstick) 197 mg/dL (70-99) Laboratory Tests Test 09/23/18 17:08 09/23/18 21:28 09/24/18 04:15 09/24/18 06:55 Glucose (Fingerstick) 65 mg/dL (70-99) 176 mg/dL (70-99) Sodium Level 149 mmol/L (136-145) Potassium Level 3.3 mmol/L (3.5-5.1) Chloride Level 110 mmol/L (98-107) Carbon Dioxide Level 31 mmol/L (21-32) Anion Gap 8 (6-14) Blood Urea Nitrogen 13 mg/dL (7-20) Creatinine 0.7 mg/dL (0.6-1.0) Estimated GFR (Cockcroft-Gault) 86.6 Glucose Level 54 mg/dL (70-99) Calcium Level 9.1 mg/dL (8.5-10.1) White Blood Count 6.8 x10^3/uL (4.0-11.0) Red Blood Count 3.80 x10^6/uL (3.50-5.40) Hemoglobin 10.4 g/dL (12.0-15.5) Hematocrit 31.3 % (36.0-47.0) Mean Corpuscular Volume 82 fL (79-100) Mean Corpuscular Hemoglobin 27 pg (25-35) Mean Corpuscular Hemoglobin Concent 33 g/dL (31-37) Red Cell Distribution Width 12.9 % (11.5-14.5) Platelet Count 322 x10^3/uL (140-400) Neutrophils (%) (Auto) 59 % (31-73) Lymphocytes (%) (Auto) 27 % (24-48) Monocytes (%) (Auto) 8 % (0-9) Eosinophils (%) (Auto) 5 % (0-3) Basophils (%) (Auto) 0 % (0-3) Neutrophils # (Auto) 4.0 x10^3uL (1.8-7.7) Lymphocytes # (Auto) 1.8 x10^3/uL (1.0-4.8) Monocytes # (Auto) 0.6 x10^3/uL (0.0-1.1) Eosinophils # (Auto) 0.4 x10^3/uL (0.0-0.7) Basophils # (Auto) 0.0 x10^3/uL (0.0-0.2) Test 09/24/18 07:29 09/24/18 08:25 09/24/18 11:23 Glucose (Fingerstick) 55 mg/dL (70-99) 89 mg/dL (70-99) 197 mg/dL (70-99) Medications Current Medications Sodium Chloride 1,000 ml @ 1,000 mls/hr 1X ONCE IV Last administered on 09/23/18at 08:37; Start 09/23/18 at 08:30; Stop 09/23/18 at 09:29; Status DC Potassium Chloride (Klor-Con) 40 meq 1X ONCE PO Last administered on 09/23/18at 10:17; Start 09/23/18 at 09:45; Stop 09/23/18 at 10:24; Status DC Potassium Chloride (KCl Oral Soln) 40 meq 1X ONCE PO Last administered on 09/23/18at 10:37; Start 09/23/18 at 10:30; Stop 09/23/18 at 10:31; Status DC Ondansetron HCl (Zofran) 4 mg PRN Q8HRS PRN IV NAUSEA/VOMITING Last administered on 09/23/18at 21:09; Start 09/23/18 at 11:30; Stop 09/24/18 at 11:29; Status DC Potassium Chloride (KCl Oral Soln) 40 meq 1X ONCE PO Last administered on 09/23/18at 12:56; Start 09/23/18 at 12:45; Stop 09/23/18 at 12:46; Status DC Fludrocortisone Acetate (Florinef) 0.1 mg DAILY PO Last administered on 09/24/18at 08:46; Start 09/24/18 at 09:00 Gabapentin (Neurontin) 600 mg HS PO Last administered on 09/23/18at 20:04; Start 09/23/18 at 21:00 Insulin Glargine (Lantus) 45 units QHS SQ ; Start 09/23/18 at 21:00; Status Cancel Amitriptyline HCl (Elavil) 100 mg QHS PO Last administered on 09/23/18at 20:04; Start 09/23/18 at 21:00 Non-Formulary Medication (Insulin Aspart (Novolog Flexpen)) 1 unit TIDAC SQ ; Start 09/23/18 at 16:30; Stop 09/23/18 at 20:18; Status DC Non-Formulary Medication (Lovastatin ) 10 mg HS PO ; Start 09/23/18 at 21:00; Status UNV Methimazole (Tapazole) 5 mg DAILY08 PO Last administered on 09/24/18at 08:46; Start 09/24/18 at 08:00 Midodrine (Proamatine) 10 mg PRN TID PRN PO HYPOTENSION; Start 09/23/18 at 18:00 Potassium Chloride/Water 100 ml @ 100 mls/hr Q1H IV Last administered on 09/23/18at 20:03; Start 09/23/18 at 16:00; Stop 09/23/18 at 19:59; Status DC Magnesium Sulfate/ Dextrose 100 ml @ 25 mls/hr 1X ONCE IV Last administered on 09/23/18at 17:02; Start 09/23/18 at 16:00; Stop 09/23/18 at 19:59; Status DC Insulin Human Lispro (HumaLOG) 0-5 UNITS TIDWMEALS SQ ; Start 09/23/18 at 17:00 Dextrose (Dextrose 50%-Water Syringe) 12.5 gm PRN Q15MIN PRN IV SEE COMMENTS; Start 09/23/18 at 15:30 Non-Formulary Medication 1 ea QHS SQ ; Start 09/23/18 at 21:00 Active Scripts Active Keflex (Cephalexin) 500 Mg Capsule 1 Cap PO TID Fludrocortisone Acetate 0.1 Mg Tablet 0.1 Mg PO DAILY Reported Novolog Flexpen (Insulin Aspart) 100 Unit/1 Ml Insuln.pen 1 Unit SQ TIDAC Midodrine Hcl 10 Mg Tablet 10 Mg PO TID PRN Basaglar Kwikpen U-100 (Insulin Glargine,Hum.rec.anlog) 100 Unit/1 Ml Insuln.pen 45 Unit SQ DAILY08 Lovastatin 10 Mg Tablet 10 Mg PO HS Methimazole 5 Mg Tablet 5 Mg PO DAILY08 Gabapentin (Gabapentin) 300 Mg Capsule 600 Mg PO HS Amitriptyline Hcl 100 Mg Tablet 1 Tab PO QHS Vitals/I & O Vital Sign - Last 24 Hours 09/23/18 09/23/18 09/23/18 09/23/18 12:30 13:00 14:45 15:00 Temp 98.0 98.1 98.0 98.1 Pulse 82 85 84 Resp 16 16 16 B/P (MAP) 141/85 (103) 142/78 (99) Pulse Ox 97 99 96 O2 Delivery Room Air Room Air Room Air 09/23/18 09/23/18 09/23/18 09/24/18 19:05 20:00 23:28 03:26 Temp 98.0 98.2 98.0 98.0 98.2 98.0 Pulse 89 89 81 Resp 17 18 17 B/P (MAP) 166/91 (116) 132/64 (86) 113/68 (83) Pulse Ox 98 98 97 O2 Delivery Room Air Room Air Room Air Room Air 09/24/18 09/24/18 09/24/18 07:31 08:00 10:56 Temp 98.0 97.9 98.0 97.9 Pulse 84 90 Resp 14 18 B/P (MAP) 137/79 (98) 168/102 (124) Pulse Ox 96 98 O2 Delivery Room Air Room Air Room Air Intake and Output 09/23/18 09/23/18 09/24/18 14:59 22:59 06:59 Intake Total 300 ml Output Total 700 ml Balance -400 ml JUAN PABLO WANG MD Sep 24, 2018 11:47
[2018-09-24] MEDS: ENOXAPARIN 40 MG/0.4 ML SYRINGE. SQ SCH (12:02)
[2018-09-24] MEDS: POTASSIUM CHLORIDE 10MEQ 100 ML IV SCH ×4 (12:02→15:17)
--- NOTE | 2018-09-24 12:14 | NUR ---
1200 Ordered Sliding scale showed 2units of Humalog for this BS 150-200 if eating. Pt. BS was 197. When this nurse told pt. she would be getting 2units of Humalog, pt. stated that she takes "5units at home when her sugar is that high". MD was at bedside and stated "I'm ok with giving 5units for a blood sugar of 197." 5units of Humalog administered. Will continue to monitor pt.
[2018-09-24 15:07] VITALS: BP 138/75
--- NOTE | 2018-09-24 17:45 | NUR ---
Pt. BS was 273. Pt. stated she would take 15units at home for that reading. The sliding scale order showed to give 4units. Pt. asked this nurse to give 8units. This nurse spoke with (Dr. Humphrey). stated it was ok to give 8units for a BS of 273. Will continue to monitor.
[2018-09-24 18:29] VITALS: BP 185/103
[2018-09-24] MEDS: GABAPENTIN 300 MG CAPSULE. PO SCH (20:00)
[2018-09-24] MEDS: AMITRIPTYLINE HCL 25 MG TABLET. PO SCH (20:00)
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
[2018-09-24] MEDS: LOVASTATIN 10 MG PO SCH (21:00)
[2018-09-24] MEDS: PRAMIPEXOLE 1 MG TABLET. PO PRN (21:09)
[2018-09-24 22:47] VITALS: BP 162/83
[2018-09-25 02:47] VITALS: BP 151/82
[2018-09-25 07:00] VITALS: BP 171/98
--- NOTE | 2018-09-25 07:55 | PDOC ---
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 Consulted general surgery and pulmonology. Will likely need tertiary care center where ENT and CT surgery are available given the size and scope of this mass. D/w CT surgery for opinion as well. Can have GI soft diet DM - unclear if she is type 1. States she sees Dr. Chicas at [facility] through [facility]. Will obtain her records Hyperthyroidism - states she has been on methimazole since April 2018, sees above pile trimmer. Will need her records for prior FNA and find her old ultrasound as well. TSH WNL currently on methimazole ?[place] disease - on florinef. K and mag low. NA up today Hypokalemia - likely RTA or addisonian, will replete Hypomagnesemia - will replete Dysphagia - for solids - likely 2/2 esophageal compression from superior mediastinal mass Abnormal weight loss - concerning for possible underlying malignancy FEN - GI soft diet, replace K PPX - Lovenox until biopsy Wednesday FULL CODE Inpatient for mediastinal mass interfering with eating. Concerning for malignancy History of Present Illness History of Present Illness Ms Wright is a 58 year old female w/ PMHx HTN, diabetes mellitus, prior CVA, hyperthyroidism who presents to the ED today complaining of dizziness and generalized weakness since yesterday. She states today she was at work and a unarmed security officer was walking around and informed her she didn't look right and called 911. Patient denies anything specific and exacerbating or relieving her symptoms. Denies any chest pain or shortness of breath On ROS she notes recent weakness and weight loss. She has lost 75 pounds,which is unintentional in the last few years. CXR revealed tracheal deviation. CT of the chest was done which showed large neck mass extending into the mediastinum. She does recently have some trouble swallowing solids. Denies pain. K and Mag were both profoundly low 2.8 and 1.6, respectively. Seen by general surgery, pulmonology, and CT surgery in consultation. There is concern this is a thyroid malignancy. 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 K 4 this morning. She wishes to advance her diet. She is a bit anxious about IR biopsy tomorrow morning. No other complaints. NPO after midnight Vitals Vitals Vital Signs Date Time Temp Pulse Resp B/P (MAP) Pulse Ox O2 Delivery O2 Flow Rate FiO2 09/25/18 07:00 98.5 89 16 171/98 (122) 90 Room Air 98.5 Physical Exam General: Alert, Oriented X3, Cooperative, No acute distress Heart: Regular rate Lungs: Clear Abdomen: Soft, No tenderness Extremities: No edema Skin: No significant lesion Labs LABS Laboratory Tests Test 09/24/18 08:25 09/24/18 11:23 09/24/18 17:28 09/24/18 19:04 Glucose (Fingerstick) 89 mg/dL (70-99) 197 mg/dL (70-99) 273 mg/dL (70-99) 154 mg/dL (70-99) Test 09/24/18 20:23 09/25/18 07:10 Glucose (Fingerstick) 144 mg/dL (70-99) 141 mg/dL (70-99) Assessment and Plan Assessmemt and Plan Problems Medical Problems: (1) Dizziness Status: Acute (2) Hypokalemia Status: Acute (3) Thyroid mass Status: Acute (4) Weakness Status: Acute Comment Review of Relevant I have reviewed the following items zurdo (where applicable) has been applied. Labs Laboratory Tests Test 09/23/18 08:03 09/23/18 08:40 09/23/18 17:08 09/23/18 21:28 White Blood Count 15.3 x10^3/uL (4.0-11.0) Red Blood Count 4.23 x10^6/uL (3.50-5.40) Hemoglobin 11.2 g/dL (12.0-15.5) Hematocrit 34.6 % (36.0-47.0) Mean Corpuscular Volume 82 fL (79-100) Mean Corpuscular Hemoglobin 26 pg (25-35) Mean Corpuscular Hemoglobin Concent 32 g/dL (31-37) Red Cell Distribution Width 13.0 % (11.5-14.5) Platelet Count 400 x10^3/uL (140-400) Neutrophils (%) (Auto) 86 % (31-73) Lymphocytes (%) (Auto) 10 % (24-48) Monocytes (%) (Auto) 4 % (0-9) Eosinophils (%) (Auto) 0 % (0-3) Basophils (%) (Auto) 0 % (0-3) Neutrophils # (Auto) 13.2 x10^3uL (1.8-7.7) Lymphocytes # (Auto) 1.4 x10^3/uL (1.0-4.8) Monocytes # (Auto) 0.5 x10^3/uL (0.0-1.1) Eosinophils # (Auto) 0.1 x10^3/uL (0.0-0.7) Basophils # (Auto) 0.0 x10^3/uL (0.0-0.2) Segmented Neutrophils % 90 % (35-66) Lymphocytes % 10 % (24-48) Platelet Estimate Adequate (ADEQUATE) Adithya Cells Occ Prothrombin Time 13.9 SEC (11.7-14.0) Prothromb Time International Ratio 1.1 (0.8-1.1) Sodium Level 141 mmol/L (136-145) Potassium Level 2.8 mmol/L (3.5-5.1) Chloride Level 100 mmol/L (98-107) Carbon Dioxide Level 32 mmol/L (21-32) Anion Gap 9 (6-14) Blood Urea Nitrogen 19 mg/dL (7-20) Creatinine 1.0 mg/dL (0.6-1.0) Estimated GFR (Cockcroft-Gault) 57.4 BUN/Creatinine Ratio 19 (6-20) Glucose Level 140 mg/dL (70-99) Calcium Level 9.5 mg/dL (8.5-10.1) Magnesium Level 1.6 mg/dL (1.8-2.4) Total Bilirubin 0.2 mg/dL (0.2-1.0) Aspartate Amino Transf (AST/SGOT) 18 U/L (15-37) Alanine Aminotransferase (ALT/SGPT) 17 U/L (14-59) Alkaline Phosphatase 141 U/L (46-116) Creatine Kinase 86 U/L (26-192) Creatine Kinase MB (Mass) 2.5 ng/mL (0.0-3.6) Creatine Kinase MB Relative Index 2.9 % (0-4) Troponin I Quantitative < 0.017 ng/mL (0.000-0.055) WN-Cjf-T-Type Natriuretic Peptide 381 pg/mL (0-124) Total Protein 7.1 g/dL (6.4-8.2) Albumin 2.8 g/dL (3.4-5.0) Albumin/Globulin Ratio 0.7 (1.0-1.7) Thyroid Stimulating Hormone (TSH) 0.824 uIU/mL (0.358-3.74) Urine Collection Type Unknown Urine Color Yellow Urine Clarity Cloudy Urine pH 6.0 Urine Specific [place] 1.015 Urine Protein >=300 mg/dL (NEG-TRACE) Urine Glucose (UA) Negative mg/dL (NEG) Urine Ketones (Stick) Negative mg/dL (NEG) Urine Blood Moderate (NEG) Urine Nitrite Negative (NEG) Urine Bilirubin Negative (NEG) Urine Urobilinogen Dipstick 0.2 mg/dL (0.2 mg/dL) Urine Leukocyte Esterase Small (NEG) Urine RBC Occ /HPF (0-2) Urine WBC 5-10 /HPF (0-4) Urine Squamous Epithelial Cells Mod /LPF Urine Bacteria Few /HPF (0-FEW) Urine Hyaline Casts Moderate /HPF Urine Mucus Slight /LPF Urine Opiates Screen Neg (NEG) Urine Methadone Screen Neg (NEG) Urine Barbiturates Neg (NEG) Urine Phencyclidine Screen Neg (NEG) Urine Amphetamine/Methamphetamine Neg (NEG) Urine Benzodiazepines Screen Neg (NEG) Urine Cocaine Screen Neg (NEG) Urine Cannabinoids Screen Neg (NEG) Urine Ethyl Alcohol Neg (NEG) Glucose (Fingerstick) 65 mg/dL (70-99) 176 mg/dL (70-99) Test 09/24/18 04:15 09/24/18 06:55 09/24/18 07:29 09/24/18 08:25 Sodium Level 149 mmol/L (136-145) Potassium Level 3.3 mmol/L (3.5-5.1) Chloride Level 110 mmol/L (98-107) Carbon Dioxide Level 31 mmol/L (21-32) Anion Gap 8 (6-14) Blood Urea Nitrogen 13 mg/dL (7-20) Creatinine 0.7 mg/dL (0.6-1.0) Estimated GFR (Cockcroft-Gault) 86.6 Glucose Level 54 mg/dL (70-99) Calcium Level 9.1 mg/dL (8.5-10.1) Magnesium Level 1.9 mg/dL (1.8-2.4) White Blood Count 6.8 x10^3/uL (4.0-11.0) Red Blood Count 3.80 x10^6/uL (3.50-5.40) Hemoglobin 10.4 g/dL (12.0-15.5) Hematocrit 31.3 % (36.0-47.0) Mean Corpuscular Volume 82 fL (79-100) Mean Corpuscular Hemoglobin 27 pg (25-35) Mean Corpuscular Hemoglobin Concent 33 g/dL (31-37) Red Cell Distribution Width 12.9 % (11.5-14.5) Platelet Count 322 x10^3/uL (140-400) Neutrophils (%) (Auto) 59 % (31-73) Lymphocytes (%) (Auto) 27 % (24-48) Monocytes (%) (Auto) 8 % (0-9) Eosinophils (%) (Auto) 5 % (0-3) Basophils (%) (Auto) 0 % (0-3) Neutrophils # (Auto) 4.0 x10^3uL (1.8-7.7) Lymphocytes # (Auto) 1.8 x10^3/uL (1.0-4.8) Monocytes # (Auto) 0.6 x10^3/uL (0.0-1.1) Eosinophils # (Auto) 0.4 x10^3/uL (0.0-0.7) Basophils # (Auto) 0.0 x10^3/uL (0.0-0.2) Glucose (Fingerstick) 55 mg/dL (70-99) 89 mg/dL (70-99) Test 09/24/18 11:23 09/24/18 17:28 09/24/18 19:04 09/24/18 20:23 Glucose (Fingerstick) 197 mg/dL (70-99) 273 mg/dL (70-99) 154 mg/dL (70-99) 144 mg/dL (70-99) Test 09/25/18 07:10 Glucose (Fingerstick) 141 mg/dL (70-99) Laboratory Tests Test 09/24/18 08:25 09/24/18 11:23 09/24/18 17:28 09/24/18 19:04 Glucose (Fingerstick) 89 mg/dL (70-99) 197 mg/dL (70-99) 273 mg/dL (70-99) 154 mg/dL (70-99) Test 09/24/18 20:23 09/25/18 07:10 Glucose (Fingerstick) 144 mg/dL (70-99) 141 mg/dL (70-99) Medications Current Medications Sodium Chloride 1,000 ml @ 1,000 mls/hr 1X ONCE IV Last administered on 09/23/18 08:37; Start 09/23/18 at 08:30; Stop 09/23/18 at 09:29; Status DC Potassium Chloride (Klor-Con) 40 meq 1X ONCE PO Last administered on 09/23/18at 10:17; Start 09/23/18 at 09:45; Stop 09/23/18 at 10:24; Status DC Potassium Chloride (KCl Oral Soln) 40 meq 1X ONCE PO Last administered on 08/26 05/14at 10:37; Start 09/23/18 at 10:30; Stop 09/23/18 at 10:31; Status DC Ondansetron HCl (Zofran) 4 mg PRN Q8HRS PRN IV NAUSEA/VOMITING Last administered on 09/23/18at 21:09; Start 09/23/18 at 11:30; Stop 09/24/18 at 11:29; Status DC Potassium Chloride (KCl Oral Soln) 40 meq 1X ONCE PO Last administered on 09/23/18at 12:56; Start 09/23/18 at 12:45; Stop 09/23/18 at 12:46; Status DC Fludrocortisone Acetate (Florinef) 0.1 mg DAILY PO Last administered on 09/24/18at 08:46; Start 09/24/18 at 09:00 Gabapentin (Neurontin) 600 mg HS PO Last administered on 09/24/18 20:00; Start 09/23/18 at 21:00 Insulin Glargine (Lantus) 45 units QHS SQ ; Start 09/23/18 at 21:00; Status Cancel Amitriptyline HCl (Elavil) 100 mg QHS PO Last administered on 6/1/19at 20:00; Start 09/23/18 at 21:00 Non-Formulary Medication (Insulin Aspart (Novolog Flexpen)) 1 unit TIDAC SQ ; Start 09/23/18 at 16:30; Stop 09/23/18 at 20:18; Status DC Non-Formulary Medication (Lovastatin ) 10 mg HS PO ; Start 09/23/18 at 21:00; Status UNV Methimazole (Tapazole) 5 mg DAILY08 PO Last administered on 09/24/18at 08:46; Start 09/24/18 at 08:00 Midodrine (Proamatine) 10 mg PRN TID PRN PO HYPOTENSION; Start 09/23/18 at 18:00 Potassium Chloride/Water 100 ml @ 100 mls/hr Q1H IV Last administered on 09/23/18at 20:03; Start 09/23/18 at 16:00; Stop 09/23/18 at 19:59; Status DC Magnesium Sulfate/ Dextrose 100 ml @ 25 mls/hr 1X ONCE IV Last administered on 09/23/18at 17:02; Start 09/23/18 at 16:00; Stop 09/23/18 at 19:59; Status DC Insulin Human Lispro (HumaLOG) 0-5 UNITS TIDWMEALS SQ Last administered on 09/24/18at 17:40; Start 09/23/18 at 17:00 Dextrose (Dextrose 50%-Water Syringe) 12.5 gm PRN Q15MIN PRN IV SEE COMMENTS; Start 09/23/18 at 15:30 Non-Formulary Medication 1 ea QHS SQ Last administered on 09/24/18at 21:14; Start 09/23/18 at 21:00 Potassium Chloride/Water 100 ml @ 100 mls/hr Q1H IV Last administered on 09/24/18at 15:17; Start 09/24/18 at 12:00; Stop 09/24/18 at 15:59; Status DC Enoxaparin Sodium (Lovenox 40mg Syringe) 40 mg Q24H SQ Last administered on 09/24/18at 12:02; Start 09/24/18 at 12:00 Pramipexole Dihydrochloride (miraPEX) 1 mg PRN QHS PRN PO RESTLESS LEGS SYNDROME Last administered on 6/1/19at 21:09; Start 09/24/18 at 20:45 Active Scripts Active Keflex (Cephalexin) 500 Mg Capsule 1 Cap PO TID Fludrocortisone Acetate 0.1 Mg Tablet 0.1 Mg PO DAILY Reported Novolog Flexpen (Insulin Aspart) 100 Unit/1 Ml Insuln.pen 1 Unit SQ TIDAC Midodrine Hcl 10 Mg Tablet 10 Mg PO TID PRN Basaglar Kwikpen U-100 (Insulin Glargine,Hum.rec.anlog) 100 Unit/1 Ml Insuln.pen 45 Unit SQ DAILY08 Lovastatin 10 Mg Tablet 10 Mg PO HS Methimazole 5 Mg Tablet 5 Mg PO DAILY08 Gabapentin (Gabapentin) 300 Mg Capsule 600 Mg PO HS Amitriptyline Hcl 100 Mg Tablet 1 Tab PO QHS Vitals/I & O Vital Sign - Last 24 Hours 09/24/18 09/24/18 09/24/18 09/24/18 08:00 10:56 15:07 18:29 Temp 97.9 97.9 98.8 97.9 97.9 98.8 Pulse 90 98 103 Resp 18 16 16 B/P (MAP) 168/102 (124) 138/75 (96) 185/103 (130) Pulse Ox 98 98 99 O2 Delivery Room Air Room Air Room Air Room Air 09/24/18 09/24/18 09/25/18 09/25/18 20:07 22:47 02:47 07:00 Temp 98.4 98.1 98.5 98.4 98.1 98.5 Pulse 98 91 89 Resp 18 17 16 B/P (MAP) 162/83 (109) 151/82 (105) 171/98 (122) Pulse Ox 98 97 90 O2 Delivery Room Air Room Air Room Air Room Air Intake and Output 09/24/18 09/24/18 09/25/18 14:59 22:59 06:59 Intake Total 680 ml 200 ml Output Total 400 ml 500 ml 0 ml Balance 280 ml -300 ml 0 ml JUAN PABLO WANG MD Sep 25, 2018 07:55
[2018-09-25] MEDS: INSULIN LISPRO 300 UNITS/3 ML INSULN.PEN. SQ SCH ×3 (08:00→17:44)
--- NOTE | 2018-09-25 08:36 | PDOC ---
Provider Note Provider Note Awaiting thyroid biopsy and biopsy results before planning of definitive surgical care PARMINDER INGRAM MD Sep 25, 2018 08:36
[2018-09-25] MEDS: FLUDROCORTISONE 0.1 MG TABLET PO SCH (08:57)
[2018-09-25] MEDS: methIMAzole 10 MG TABLET PO SCH (08:58)
[2018-09-25 10:18] LABS: CALCIUM 8.8 mg/dL (8.5-10.1); CREATININE 0.7 mg/dL (0.6-1.0); GFR 86.6
[2018-09-25 11:00] VITALS: BP 180/89
[2018-09-25] MEDS: ENOXAPARIN 40 MG/0.4 ML SYRINGE. SQ SCH (12:29)
[2018-09-25 15:00] VITALS: BP 163/102
[2018-09-25 19:45] VITALS: BP 156/88
[2018-09-25] MEDS ORDERED: SIMVASTATIN 10 MG TABLET PO SCH (21:00)
[2018-09-25] MEDS: GABAPENTIN 300 MG CAPSULE. PO SCH (21:10)
[2018-09-25] MEDS: AMITRIPTYLINE HCL 25 MG TABLET. PO SCH (21:10)
[2018-09-25] MEDS: PRAMIPEXOLE 1 MG TABLET. PO PRN (21:11)
--- NOTE | 2018-09-25 22:33 | NUR ---
Patient with complaints of nausea. MARINA checked eMar, patient did not have anything ordered. MARINA paged as[address] Boyle. Addendum: 09/25/18 at 2237 by CHARAN BUSTILLO RN RN New order for Lisa dave.
[2018-09-25] MEDS ORDERED: ONDANSETRON PF 4 MG/2 ML VIAL. IV PRN (22:45)
[2018-09-25 23:00] VITALS: BP 162/94
[2018-09-26 03:15] VITALS: BP 148/84
[2018-09-26 07:00] VITALS: BP 179/110
[2018-09-26] MEDS: INSULIN LISPRO 300 UNITS/3 ML INSULN.PEN. SQ SCH ×2 (07:41→11:40)
[2018-09-26] MEDS ORDERED: ENALAPRILAT 2.5 MG/2 ML VIAL. IVP PRN (07:45)
[2018-09-26] MEDS: methIMAzole 10 MG TABLET PO SCH (08:00)
--- NOTE | 2018-09-26 08:23 | PDOC ---
PROGRESS NOTES Chief Complaint Chief Complaint A/P: Large neck mass extending into the mediastinum with tracheal deviation and compression of the esophagus - I have now discussed with [facility] radiology and our radiologist this mass and tracheal deviation have been stable since 2014, this is most assuredly a multinodular goiter DM - unclear if she is type 1. States she sees Dr. Chicas at [facility] through [facility]. Hyperthyroidism - states she has been on methimazole, sees above sales enablement consultant. TSH WNL currently on methimazole ?[place] disease - on florinef. K and mag replaced Hypokalemia - likely RTA or addisonian Hypomagnesemia - replete now Dysphagia - for solids - likely 2/2 esophageal compression from superior mediastinal mass Abnormal weight loss - now she notes she intentionally lost much of this weight FEN - GI soft diet, replace K Ok for d/c home History of Present Illness History of Present Illness Ms Wright is a 58 year old female w/ PMHx HTN, diabetes mellitus, prior CVA, hyperthyroidism who presents to the ED today complaining of dizziness and generalized weakness since yesterday. She states today she was at work and a vp security was walking around and informed her she didn't look right and called 911. Patient denies anything specific and exacerbating or relieving her symptoms. Denies any chest pain or shortness of breath On ROS she notes recent weakness and weight loss. She has lost 75 pounds,which is partially intentional in the last few years. CXR revealed tracheal deviation. CT of the chest was done which showed large neck mass extending into the mediastinum. She does recently have some trouble swallowing solids. Denies pain. K and Mag were both profoundly low 2.8 and 1.6, respectively. Seen by general surgery, pulmonology, and CT surgery in consultation. There was concern this is a thyroid malignancy, but now has noted that it has been present since 2014, likely a multinodular goiter. Greater than 30 minutes spent on discharge Vitals Vitals Vital Signs Date Time Temp Pulse Resp B/P (MAP) Pulse Ox O2 Delivery O2 Flow Rate FiO2 09/26/18 08:00 93 179/110 09/26/18 07:00 98.1 18 96 Room Air 98.1 Physical Exam General: Alert, Oriented X3, Cooperative, No acute distress Heart: Regular rate Lungs: Clear Abdomen: Soft, No tenderness Extremities: No edema Skin: No significant lesion Labs LABS Laboratory Tests Test 09/25/18 09:20 09/25/18 11:29 09/25/18 17:20 09/25/18 20:58 Sodium Level 141 mmol/L (136-145) Potassium Level 4.0 mmol/L (3.5-5.1) Chloride Level 103 mmol/L (98-107) Carbon Dioxide Level 30 mmol/L (21-32) Anion Gap 8 (6-14) Blood Urea Nitrogen 13 mg/dL (7-20) Creatinine 0.7 mg/dL (0.6-1.0) Estimated GFR (Cockcroft-Gault) 86.6 Glucose Level 119 mg/dL (70-99) Calcium Level 8.8 mg/dL (8.5-10.1) Glucose (Fingerstick) 136 mg/dL (70-99) 177 mg/dL (70-99) 188 mg/dL (70-99) Test 09/26/18 07:30 Glucose (Fingerstick) 123 mg/dL (70-99) Assessment and Plan Assessmemt and Plan Problems Medical Problems: (1) Dizziness Status: Acute (2) Hypokalemia Status: Acute (3) Thyroid mass Status: Acute (4) Weakness Status: Acute Comment Review of Relevant I have reviewed the following items zurdo (where applicable) has been applied. Labs Laboratory Tests Test 09/24/18 08:25 09/24/18 11:23 09/24/18 17:28 09/24/18 19:04 Glucose (Fingerstick) 89 mg/dL (70-99) 197 mg/dL (70-99) 273 mg/dL (70-99) 154 mg/dL (70-99) Test 09/24/18 20:23 09/25/18 07:10 09/25/18 09:20 09/25/18 11:29 Glucose (Fingerstick) 144 mg/dL (70-99) 141 mg/dL (70-99) 136 mg/dL (70-99) Sodium Level 141 mmol/L (136-145) Potassium Level 4.0 mmol/L (3.5-5.1) Chloride Level 103 mmol/L (98-107) Carbon Dioxide Level 30 mmol/L (21-32) Anion Gap 8 (6-14) Blood Urea Nitrogen 13 mg/dL (7-20) Creatinine 0.7 mg/dL (0.6-1.0) Estimated GFR (Cockcroft-Gault) 86.6 Glucose Level 119 mg/dL (70-99) Calcium Level 8.8 mg/dL (8.5-10.1) Test 09/25/18 17:20 09/25/18 20:58 09/26/18 07:30 Glucose (Fingerstick) 177 mg/dL (70-99) 188 mg/dL (70-99) 123 mg/dL (70-99) Laboratory Tests Test 09/25/18 09:20 09/25/18 11:29 09/25/18 17:20 09/25/18 20:58 Sodium Level 141 mmol/L (136-145) Potassium Level 4.0 mmol/L (3.5-5.1) Chloride Level 103 mmol/L (98-107) Carbon Dioxide Level 30 mmol/L (21-32) Anion Gap 8 (6-14) Blood Urea Nitrogen 13 mg/dL (7-20) Creatinine 0.7 mg/dL (0.6-1.0) Estimated GFR (Cockcroft-Gault) 86.6 Glucose Level 119 mg/dL (70-99) Calcium Level 8.8 mg/dL (8.5-10.1) Glucose (Fingerstick) 136 mg/dL (70-99) 177 mg/dL (70-99) 188 mg/dL (70-99) Test 09/26/18 07:30 Glucose (Fingerstick) 123 mg/dL (70-99) Medications Current Medications Sodium Chloride 1,000 ml @ 1,000 mls/hr 1X ONCE IV Last administered on 09/23/18at 08:37; Start 09/23/18 at 08:30; Stop 09/23/18 at 09:29; Status DC Potassium Chloride (Klor-Con) 40 meq 1X ONCE PO Last administered on 09/23/18at 10:17; Start 09/23/18 at 09:45; Stop 09/23/18 at 10:24; Status DC Potassium Chloride (KCl Oral Soln) 40 meq 1X ONCE PO Last administered on 09/23/18at 10:37; Start 09/23/18 at 10:30; Stop 09/23/18 at 10:31; Status DC Ondansetron HCl (Zofran) 4 mg PRN Q8HRS PRN IV NAUSEA/VOMITING Last administered on 09/23/18 21:09; Start 09/23/18 at 11:30; Stop 09/24/18 at 11:29; Status DC Potassium Chloride (KCl Oral Soln) 40 meq 1X ONCE PO Last administered on 09/23/18 12:56; Start 09/23/18 at 12:45; Stop 09/23/18 at 12:46; Status DC Fludrocortisone Acetate (Florinef) 0.1 mg DAILY PO Last administered on 09/25/18 08:57; Start 09/24/18 at 09:00 Gabapentin (Neurontin) 600 mg HS PO Last administered on 09/25/18 21:10; Start 09/23/18 at 21:00 Insulin Glargine (Lantus) 45 units QHS SQ ; Start 09/23/18 at 21:00; Status Cancel Amitriptyline HCl (Elavil) 100 mg QHS PO Last administered on 09/25/18at 21:10; Start 09/23/18 at 21:00 Non-Formulary Medication (Insulin Aspart (Novolog Flexpen)) 1 unit TIDAC SQ ; Start 09/23/18 at 16:30; Stop 09/23/18 at 20:18; Status DC Non-Formulary Medication (Lovastatin ) 10 mg HS PO ; Start 09/23/18 at 21:00; Stop 09/25/18 at 16:49; Status DC Methimazole (Tapazole) 5 mg DAILY08 PO Last administered on 09/25/18at 08:58; Start 09/24/18 at 08:00 Midodrine (Proamatine) 10 mg PRN TID PRN PO HYPOTENSION; Start 09/23/18 at 18:00 Potassium Chloride/Water 100 ml @ 100 mls/hr Q1H IV Last administered on 09/23/18 20:03; Start 09/23/18 at 16:00; Stop 09/23/18 at 19:59; Status DC Magnesium Sulfate/ Dextrose 100 ml @ 25 mls/hr 1X ONCE IV Last administered on 09/23/18at 17:02; Start 09/23/18 at 16:00; Stop 09/23/18 at 19:59; Status DC Insulin Human Lispro (HumaLOG) 0-5 UNITS TIDWMEALS SQ Last administered on 09/25/18at 17:44; Start 09/23/18 at 17:00 Dextrose (Dextrose 50%-Water Syringe) 12.5 gm PRN Q15MIN PRN IV SEE COMMENTS; Start 09/23/18 at 15:30 Non-Formulary Medication 1 ea QHS SQ Last administered on 09/24/18at 21:14; Start 09/23/18 at 21:00 Potassium Chloride/Water 100 ml @ 100 mls/hr Q1H IV Last administered on 09/24/18at 15:17; Start 09/24/18 at 12:00; Stop 09/24/18 at 15:59; Status DC Enoxaparin Sodium (Lovenox 40mg Syringe) 40 mg Q24H SQ Last administered on 09/25/18at 12:29; Start 09/24/18 at 12:00 Pramipexole Dihydrochloride (miraPEX) 1 mg PRN QHS PRN PO RESTLESS LEGS SYNDROME Last administered on 09/25/18at 21:11; Start 09/24/18 at 20:45 Simvastatin (Zocor) 10 mg QHS PO ; Start 09/25/18 at 21:00 Ondansetron HCl (Zofran) 4 mg PRN Q6HRS PRN IV NAUSEA/VOMITING Last administered on 09/25/18at 23:34; Start 09/25/18 at 22:45 Enalaprilat (Vasotec Inj) 2.5 mg PRN Q6HRS PRN IVP HYPERTENSION Last administered on 09/26/18at 08:00; Start 09/26/18 at 07:45 Active Scripts Active Keflex (Cephalexin) 500 Mg Capsule 1 Cap PO TID Fludrocortisone Acetate 0.1 Mg Tablet 0.1 Mg PO DAILY Reported Novolog Flexpen (Insulin Aspart) 100 Unit/1 Ml Insuln.pen 1 Unit SQ TIDAC Midodrine Hcl 10 Mg Tablet 10 Mg PO TID PRN Basaglar Kwikpen U-100 (Insulin Glargine,Hum.rec.anlog) 100 Unit/1 Ml Insuln.pen 45 Unit SQ DAILY08 Lovastatin 10 Mg Tablet 10 Mg PO HS Methimazole 5 Mg Tablet 5 Mg PO DAILY08 Gabapentin (Gabapentin) 300 Mg Capsule 600 Mg PO HS Amitriptyline Hcl 100 Mg Tablet 1 Tab PO QHS Vitals/I & O Vital Sign - Last 24 Hours 09/25/18 09/25/18 09/25/18 09/25/18 11:00 15:00 19:45 20:16 Temp 97.6 98.1 98.5 97.6 98.1 98.5 Pulse 92 98 103 Resp 16 16 18 B/P (MAP) 180/89 (119) 163/102 (122) 156/88 (110) Pulse Ox 96 97 96 O2 Delivery Room Air Room Air Room Air Room Air 09/25/18 09/26/18 09/26/18 09/26/18 23:00 03:15 07:00 08:00 Temp 98.3 98.0 98.1 98.3 98.0 98.1 Pulse 92 93 92 93 Resp 18 18 18 B/P (MAP) 162/94 (116) 148/84 (105) 179/110 (133) 179/110 Pulse Ox 91 93 96 O2 Delivery Room Air Room Air Room Air Intake and Output 09/25/18 09/25/18 09/26/18 15:00 23:00 07:00 Intake Total 180 ml 360 ml 100 ml Output Total 1300 ml 900 ml Balance -1120 ml -540 ml 100 ml JUAN PABLO WANG MD Sep 26, 2018 08:23
[2018-09-26] MEDS: FLUDROCORTISONE 0.1 MG TABLET PO SCH (09:00)
--- NOTE | 2018-09-26 09:26 | PDOC ---
PULMONARY PROGRESS NOTES Subjective no soa Vitals Vital Signs Date Time Temp Pulse Resp B/P (MAP) Pulse Ox O2 Delivery O2 Flow Rate FiO2 09/26/18 08:00 93 179/110 09/26/18 08:00 Room Air 09/26/18 07:00 98.1 18 96 98.1 General: Alert, No acute distress Lungs: Clear Cardiovascular: S1 Abdomen: Soft Neuro Exam: Alert Extremities: No Edema Skin: Warm Labs Laboratory Tests Test 09/24/18 11:23 09/24/18 17:28 09/24/18 19:04 09/24/18 20:23 Glucose (Fingerstick) 197 mg/dL (70-99) 273 mg/dL (70-99) 154 mg/dL (70-99) 144 mg/dL (70-99) Test 09/25/18 07:10 09/25/18 09:20 09/25/18 11:29 09/25/18 17:20 Glucose (Fingerstick) 141 mg/dL (70-99) 136 mg/dL (70-99) 177 mg/dL (70-99) Sodium Level 141 mmol/L (136-145) Potassium Level 4.0 mmol/L (3.5-5.1) Chloride Level 103 mmol/L (98-107) Carbon Dioxide Level 30 mmol/L (21-32) Anion Gap 8 (6-14) Blood Urea Nitrogen 13 mg/dL (7-20) Creatinine 0.7 mg/dL (0.6-1.0) Estimated GFR (Cockcroft-Gault) 86.6 Glucose Level 119 mg/dL (70-99) Calcium Level 8.8 mg/dL (8.5-10.1) Test 09/25/18 20:58 09/26/18 07:30 Glucose (Fingerstick) 188 mg/dL (70-99) 123 mg/dL (70-99) Laboratory Tests Test 09/25/18 11:29 09/25/18 17:20 09/25/18 20:58 09/26/18 07:30 Glucose (Fingerstick) 136 mg/dL (70-99) 177 mg/dL (70-99) 188 mg/dL (70-99) 123 mg/dL (70-99) Medications Active Scripts Medications Dose Route/Sig Max Daily Dose Days Date Category Novolog Flexpen (Insulin Aspart) 100 Unit/1 Ml Insuln.pen 1 Unit SQ TIDAC 09/23/18 Reported Midodrine Hcl 10 Mg Tablet 10 Mg PO TID PRN 09/23/18 Reported Keflex (Cephalexin) 500 Mg Capsule 1 Cap PO TID 09/14/18 Rx Basaglar Kwikpen U-100 (Insulin Glargine,Hum.rec.anlog) 100 Unit/1 Ml Insuln.pen 45 Unit SQ DAILY08 09/12/18 Reported Lovastatin 10 Mg Tablet 10 Mg PO HS 08/23/18 Reported Methimazole 5 Mg Tablet 5 Mg PO DAILY08 06/07/18 Reported Gabapentin (Gabapentin) 300 Mg Capsule 600 Mg PO HS 06/07/18 Reported Amitriptyline Hcl 100 Mg Tablet 1 Tab PO QHS 06/07/18 Reported Fludrocortisone Acetate 0.1 Mg Tablet 0.1 Mg PO DAILY 11/08/17 Rx Impression . 1. 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 It is, however, causing mass effect upon the esophagus. 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 Could be anaplastic. This is not a thymoma. She has lost 75 pounds, which is unintentional in the last few years. 2. No significant history of tobacco use. No dyspnea. 3. History of hyperthyroidism and was on antithyroid drugs. Plan . WAITING FOR BX 1. CT-guided biopsy 2. Since this is a complicated mass, which may require multiple specialties for any resection, he preferred to have her seen at ./ [facility] 3. Replace potassium. 4. We will be available for any further recommendation. Not much to add Pulmonary MAYO Fish MD Sep 26, 2018 09:26
[2018-09-26 10:14] LABS: CALCIUM 9.3 mg/dL (8.5-10.1); CREATININE 0.7 mg/dL (0.6-1.0); GFR 86.6; POTASSIUM 3.9 mmol/L (3.5-5.1)
[2018-09-26] MEDS: ENOXAPARIN 40 MG/0.4 ML SYRINGE. SQ SCH (11:06)
[2018-09-26 11:32] VITALS: BP 153/82
--- NOTE | 2018-09-26 14:25 | PDOC3 ---
Discharge Summary Visit Information Date of Admission: September 23, 2018 Date of Discharge: Sep 26, 2018 Admitting Diagnosis: Dizziness, thyroid mass Final Diagnosis Problems Medical Problems: (1) Dizziness Status: Acute (2) Hypokalemia Status: Acute (3) Thyroid mass Status: Acute (4) Weakness Status: Acute Brief Hospital Course Allergies Allergies Coded Allergies Type Severity Reaction Last Updated Verified atorvastatin Allergy Severe throat swells 09/12/18 Yes hydroxyzine Allergy Severe DIZZINESS, "I FEEL LIKE IM DRUNK" 08/16/18 Yes raspberry Allergy Severe CHOKING SENSATION IN THROAT 10/25/15 Yes tramadol Allergy Severe VOMITING 08/16/18 Yes amoxicillin Allergy Intermediate 10/13/17 Yes aspirin Allergy Intermediate 10/13/17 Yes codeine Allergy Intermediate 10/13/17 Yes ibuprofen Allergy Intermediate 10/13/17 Yes morphine Allergy Intermediate 10/13/17 Yes cephalexin Allergy Unknown 09/23/18 Yes ciprofloxacin Allergy Unknown 09/23/18 Yes pregabalin Allergy Unknown vomiting 09/23/18 Yes Vital Signs Vital Signs Date Time Temp Pulse Resp B/P (MAP) Pulse Ox O2 Delivery O2 Flow Rate FiO2 09/26/18 11:32 98.3 93 18 153/82 (105) 95 Room Air 98.3 Lab Results Laboratory Tests Test 09/24/18 17:28 09/24/18 19:04 09/24/18 20:23 09/25/18 07:10 Glucose (Fingerstick) 273 mg/dL (70-99) 154 mg/dL (70-99) 144 mg/dL (70-99) 141 mg/dL (70-99) Test 09/25/18 09:20 09/25/18 11:29 09/25/18 17:20 09/25/18 20:58 Sodium Level 141 mmol/L (136-145) Potassium Level 4.0 mmol/L (3.5-5.1) Chloride Level 103 mmol/L (98-107) Carbon Dioxide Level 30 mmol/L (21-32) Anion Gap 8 (6-14) Blood Urea Nitrogen 13 mg/dL (7-20) Creatinine 0.7 mg/dL (0.6-1.0) Estimated GFR (Cockcroft-Gault) 86.6 Glucose Level 119 mg/dL (70-99) Calcium Level 8.8 mg/dL (8.5-10.1) Glucose (Fingerstick) 136 mg/dL (70-99) 177 mg/dL (70-99) 188 mg/dL (70-99) Test 09/26/18 07:30 09/26/18 09:25 09/26/18 11:36 Glucose (Fingerstick) 123 mg/dL (70-99) 113 mg/dL (70-99) Sodium Level 139 mmol/L (136-145) Potassium Level 3.9 mmol/L (3.5-5.1) Chloride Level 101 mmol/L (98-107) Carbon Dioxide Level 31 mmol/L (21-32) Anion Gap 7 (6-14) Blood Urea Nitrogen 10 mg/dL (7-20) Creatinine 0.7 mg/dL (0.6-1.0) Estimated GFR (Cockcroft-Gault) 86.6 Glucose Level 129 mg/dL (70-99) Calcium Level 9.3 mg/dL (8.5-10.1) Laboratory Tests Test 09/25/18 17:20 09/25/18 20:58 09/26/18 07:30 09/26/18 09:25 Glucose (Fingerstick) 177 mg/dL (70-99) 188 mg/dL (70-99) 123 mg/dL (70-99) Sodium Level 139 mmol/L (136-145) Potassium Level 3.9 mmol/L (3.5-5.1) Chloride Level 101 mmol/L (98-107) Carbon Dioxide Level 31 mmol/L (21-32) Anion Gap 7 (6-14) Blood Urea Nitrogen 10 mg/dL (7-20) Creatinine 0.7 mg/dL (0.6-1.0) Estimated GFR (Cockcroft-Gault) 86.6 Glucose Level 129 mg/dL (70-99) Calcium Level 9.3 mg/dL (8.5-10.1) Test 09/26/18 11:36 Glucose (Fingerstick) 113 mg/dL (70-99) Brief Hospital Course Ms Wright is a 58 year old female w/ PMHx HTN, diabetes mellitus, prior CVA, hyperthyroidism who presents to the ED today complaining of dizziness and generalized weakness since yesterday. She states today she was at work and a information technology security manager was walking around and informed her she didn't look right and called 911. Patient denies anything specific and exacerbating or relieving her symptoms. Denies any chest pain or shortness of breath On ROS she notes recent weakness and weight loss. She has lost 75 pounds,which is partially intentional in the last few years. CXR revealed tracheal deviation. CT of the chest was done which showed large neck mass extending into the mediastinum. She does recently have some trouble swallowing solids. Denies pain. K and Mag were both profoundly low 2.8 and 1.6, respectively. Seen by general surgery, pulmonology, and CT surgery in consultation. There was concern this is a thyroid malignancy, but now has noted that it has been present since 2015, likely a multinodular goiter. A/P: Large neck mass extending into the mediastinum with tracheal deviation and compression of the esophagus - I have now discussed with [facility] radiology and our radiologist this mass and tracheal deviation have been stable since 2014, this is most assuredly a multinodular goiter DM - unclear if she is type 1. States she sees Dr. Chicas at [facility] through [facility]. Hyperthyroidism - states she has been on methimazole, sees above endocrinolog ist. TSH WNL currently on methimazole ?[place] disease - on florinef. K and mag replaced Hypokalemia - likely RTA or addisonian Hypomagnesemia - replete now Dysphagia - for solids - likely 2/2 esophageal compression from superior mediastinal mass Abnormal weight loss - now she notes she intentionally lost much of this weight FEN - GI soft diet, replace K Ok for d/c home Greater than 30 minutes spent on discharge Discharge Information Condition at Discharge: Improved Follow Up: Weeks (1) Disposition/Orders: D/C to Home Scheduled Amitriptyline Hcl (Amitriptyline Hcl) 100 Mg Tablet, 1 TAB PO QHS for neuropathy, (Reported) Entered as Reported by: INNA SETHI on 06/07/182234 Last Taken: Unknown Dose on Unknown Date & Time Last Action: Converted on 09/23/18 1501 by JUAN PABLO WANG MD Fludrocortisone Acetate (Fludrocortisone Acetate) 0.1 Mg Tablet, 0.1 MG PO DAILY, #30 Prescribed by: PAT MCCOY on 11/08/17 0950 Last Taken: Unknown Dose on Unknown Date & Time Last Action: Continued on 09/23/18 150 by JUAN PABLO WANG MD Gabapentin (Gabapentin ) 300 Mg Capsule, 600 MG PO HS for NEUROGENIC PAIN, (Reported) Entered as Reported by: INNA SETHI on 06/07/182234 Last Taken: Unknown Dose on Unknown Date & Time Last Action: Continued on 09/23/18 150 by JUAN PABLO WANG MD Insulin Aspart (Novolog Flexpen) 100 Unit/1 Ml Insuln.pen, 1 UNIT SQ TIDAC for diabetes, (Reported) Entered as Reported by: RHETT CASTELLON on 09/23/18 1408 Last Taken: UNKNOWN on Unknown Date & Time Last Action: Converted on 09/23/181500 by JUAN PABLO WANG MD Insulin Glargine,Hum.rec.anlog (Basaglar Kwikpen U-100) 100 Unit/1 Ml Insuln.pen, 45 UNIT SQ DAILY08 for Diabetes, (Reported) Entered as Reported by: LEVI COLLIER on 09/12/182158 Last Taken: Unknown Dose on 09/22/18 Last Action: Continued on 09/23/18 150 by JUAN PABLO WANG MD Lovastatin (Lovastatin) 10 Mg Tablet, 10 MG PO HS for cholsterol, (Reported) Entered as Reported by: Lucho Loya on 08/23/182143 Last Taken: Unknown Dose on Unknown Date & Time Last Action: Converted on 09/23/181500 by JUAN PABLO WANG MD Methimazole (Methimazole) 5 Mg Tablet, 5 MG PO DAILY08 for hyperthyroid, (Reported) Entered as Reported by: INNA SETHI on 06/07/182234 Last Taken: Unknown Dose on 09/22/18 Last Action: Converted on 09/23/181500 by JUAN PABLO WANG MD Scheduled PRN Midodrine Hcl (Midodrine Hcl) 10 Mg Tablet, 10 MG PO TID PRN for hypotension, (Reported) Entered as Reported by: RHETT CASTELLON on 09/23/18 1320 Last Taken: Unknown Dose on 09/22/18 Last Action: Converted on 09/23/181500 by JUAN PABLO WANG MD Discontinued Medications Cephalexin (Keflex) 500 Mg Capsule, 1 CAP PO TID for e coli uti, #21 Prescribed by: REGINA DAVID on 09/14/18 1336 Last Taken: Unknown Dose on Unknown Date & Time Last Action: Last Taken Edited on 09/23/18 1320 by JUAN PABLO COUCH MD Sep 26, 2018 14:25
--- NOTE | 2018-09-26 15:08 | NUR ---
Discharge Note: PT DISCHARGED HOME WITH SELF CARE. PT LEFT FACILITY VIA PRIVATE VEHICLE WITH FRIENDS FROM WORK. PT HAD ONE FRIEND DRIVE HER CAR HOME. PT STABLE AND ALERT UPON DISCHARGE. PT PIV TO R FA DISCONTINUED WITHOUT COMPLICATIONS, BANDAGE APPLIED. PT EDUCATED ABOUT DISCHARGE MEDICATIONS, FOLLOW-UP INSTRUCTIONS, AND DISCHARGE INSTRUCTIONS. TAYLOR SARAVIA Discharge instructions and discharge home medications reviewed with Patient and a copy given. All questions have been answered and understanding verbalized.
== END 2018-09-26 14:59 | disposition home or self-care (01) | DRG 392 ==
LOC: ER 08:02 → 2 NORTH 11:27
PROVIDERS: ADMIT Internal Medicine; ATTEND Internal Medicine
DX: K22.2 Esophageal obstruction (principal); E04.2 Nontoxic multinodular goiter; E03.9 Hypothyroidism, unspecified; E05.20 Thyrotoxicosis with toxic multinodular goiter without thyrotoxic crisis or storm; E11.40 Type 2 diabetes mellitus with diabetic neuropathy, unspecified; E78.00 Pure hypercholesterolemia, unspecified; M19.90 Unspecified osteoarthritis, unspecified site; E11.42 Type 2 diabetes mellitus with diabetic polyneuropathy; E78.5 Hyperlipidemia, unspecified; E83.42 Hypomagnesemia; E87.6 Hypokalemia; I10 Essential (primary) hypertension; J39.8 Other specified diseases of upper respiratory tract; J44.9 Chronic obstructive pulmonary disease, unspecified; R13.10 Dysphagia, unspecified; Z79.4 Long term (current) use of insulin; Z83.3 Family history of diabetes mellitus; Z86.73 Personal history of transient ischemic attack (TIA), and cerebral infarction without residual deficits; Z88.8 Allergy status to other drugs, medicaments and biological substances; Z79.899 Other long term (current) drug therapy
CPT/HCPCS: 36415; 70450; 71045; 71250; 80048; 80053; 80307; 81001; 82553; 82962; 83735; 83880; 84443; 84484; 85007; 85025; 85610; 93005; 96360; J1650; J1815; J2405; J3475; J3480; J7030; 99285-25

== ENCOUNTER → 2018-10-04 | Outpatient (CLI) | payer OTHER ==
[2018-09-26 11:32] VITALS: BP 153/82
[~2018-10-04] MED LIST changes: +ACETAMINOPHEN PM PO; +DIPHENHYDRAMINE IVP ONE; +HYDR-2761 PO; +HYDR-3164 PO; +LEVO100T PO; +MIDO10TA PO; +NITR100C PO; +NORMAL SALINE IVP ONE
--- NOTE | 2018-10-04 16:58 | RAD ---
Ultrasound-guided left thyroid biopsy, 10/04/2018: History: Dominant left thyroid nodule with calcifications Under local anesthesia, aseptic conditions and sonographic guidance four 25-gauge aspirates were obtained from the dominant solid nodule in the lower left thyroid lobe via an anteromedial approach. A 1% Benadryl solution was utilized for local anesthesia in this patient with a history of a severe lidocaine allergy. The materials were sent to pathology for evaluation. Hemostasis was then obtained. The patient tolerated the procedure well and left the department in good condition. The pathology results are pending.
--- NOTE | 2018-10-05 18:06 | PATHOLOGY ---
Note [facility] Accession Number: [id number] TESTS RESULT FLAG UNITS REF RANGE LAB Clinician Provided Cytology Information No. of containers..01 Other (Miscellaneous) Source: LT THYROID DIAGNOSIS: LT THYROID NEGATIVE FOR MALIGNANT CELLS. [place] CATEGORY II. SPECIMEN CONSISTS OF BENIGN FOLLICULAR CELLS, FEW HEMOSIDERIN-LADEN MACROPHAGES, COLLOID, AND BLOOD. THIS PATTERN IS CONSISTENT WITH AN ADENOMATOUS NODULE. THIS INTERPRETATION INCLUDES EVALUATION OF A CELL BLOCK. Pathologist ICD10: 02 E04.1 Signed out by: 02 Jed Bond MD, Pathologist NPI- [id number] Performed by: Salma Enciso, Remediation Consultant ([facility] [place]) Gross description: 01 30ML, PINK, CLOUDY /LCS FLAG LEGEND: L-Low Normal,H-High Normal,LL-Alert Low,HH-Alert High <-Panic Low,>-Panic High,A-Abnormal,AA-Critical Abnormal Performed at: [facility] [address] [place] [address] Heraclio Rm MD, [address] [facility] [address] [place] [address] Jed Bond MD, Specimen Comment: A courtesy copy of this report has been sent to Specimen Comment: [phone], . Specimen Comment: Report sent to / DR INGRAM Specimen Comment: A duplicate report has been generated due to demographic updates. Performed at: [address] [facility], [place], [place] [id number] MD Heraclio Rm MD Phone: [phone]
== END | disposition home or self-care (01) ==
LOC: US 06:56
PROVIDERS: ATTEND Surgery
DX: E04.1 Nontoxic single thyroid nodule (principal)
CPT/HCPCS: 10005; 76942; 88173; 88305

== ENCOUNTER 2018-10-10 17:21 | Emergency (ER) | payer OTHER ==
[~2018-10-10] VITALS: Ht 175.3 cm; Wt 58.1 kg
[~2018-10-10 17:21] MED LIST changes: -ACETAMINOPHEN PM PO; -DIPHENHYDRAMINE IVP ONE; -HYDR-2761 PO; -HYDR-3164 PO; -LEVO100T PO; -NITR100C PO; -NORMAL SALINE IVP ONE
[2018-10-10] MEDS ORDERED: IV NORMAL SALINE 1000ML BAG 1,000 ML IV ONE (19:00)
[2018-10-10] MEDS ORDERED: CONTRAST GIVEN. MC PRN (19:15)
[2018-10-10] MEDS ORDERED: fentaNYL PF VIAL 100 MCG/2 ML VIAL IV ONE ×2 (19:15→21:00)
[2018-10-10 19:21] LABS: BASO # 0.1 x10^3/uL (0.0-0.2); BASO % 1 % (0-3); EOS # 0.4 x10^3/uL (0.0-0.7); EOS % 7 % (0-3); HEMATOCRIT 35.7 % (36.0-47.0); HEMOGLOBIN 11.7 g/dL (12.0-15.5); LYMPH # 2.4 x10^3/uL (1.0-4.8); LYMPH % 36 % (24-48); MEAN CORPUSCULAR HEMOGLOBIN 27 pg (25-35); MEAN CORPUSCULAR HGB CONC 33 g/dL (31-37); MEAN CORPUSCULAR VOLUME 82 fL (79-100); MONO # 0.5 x10^3/uL (0.0-1.1); MONO % 8 % (0-9); NEUT # 3.1 x10^3uL (1.8-7.7); NEUT % 48 % (31-73); PLATELET COUNT 294 x10^3/uL (140-400); RED BLOOD COUNT 4.36 x10^6/uL (3.50-5.40); RED CELL DISTRIBUTION WIDTH 13.1 % (11.5-14.5); WHITE BLOOD COUNT 6.5 x10^3/uL (4.0-11.0)
[2018-10-10] MEDS ORDERED: IOHEXOL 350 MG/ML 100 ML VIAL. IV ONE (19:30)
[2018-10-10 19:34] LABS: CALCIUM 9.2 mg/dL (8.5-10.1); CREATININE 0.8 mg/dL (0.6-1.0); GFR 74.2; POTASSIUM 3.8 mmol/L (3.5-5.1)
[2018-10-10 19:35] LABS: PROTHROMBIN TIME PATIENT 13.6 SEC (11.7-14.0)
[2018-10-10 19:40] LABS: ALBUMIN 2.9 g/dL (3.4-5.0); ALBUMIN/GLOBULIN RATIO 0.7 (1.0-1.7); MAGNESIUM 1.8 mg/dL (1.8-2.4); TOTAL BILIRUBIN 0.2 mg/dL (0.2-1.0); TOTAL PROTEIN 7.2 g/dL (6.4-8.2)
--- NOTE | 2018-10-10 20:14 | RAD ---
CT arteriogram of the chest. HISTORY: Pleuritic chest pain CT arteriogram was done using 90 mL Omnipaque 350 contrast. Sagittal and coronal MIP images were reconstructed. There is a multinodular goiter including substernal thyroid from the left side. There is no mediastinal adenopathy. There is no pleural effusion. Upper aspect of the liver and spleen are unremarkable. Adrenal glands are normal. There is mild atelectasis in the lung bases without other infiltrates. This study is negative for evidence of a pulmonary embolus. Thoracic aorta is not enlarged. There is no dissection. Origins of great vessels are widely patent. IMPRESSION: 1. Large multinodular goiter. 2. Negative for a pulmonary embolus. 3. Mild atelectasis without other infiltrates. PQRS Compliance Statement: One or more of the following individualized dose reduction techniques were utilized for this examination: 1. Automated exposure control 2. Adjustment of the mA and/or kV according to patient size 3. Use of iterative reconstruction technique Electronically signed by: Milton Valencia MD (10/10/2018 8:11 PM) [facility]
--- NOTE | 2018-10-10 20:53 | PHYS DOC ---
Past Medical History Past Medical History: Diabetes-Type I, High Cholesterol, Hypertension, Hypothyroid, Stroke, Other Additional Past Medical Histor: NEUROPATHY Past Surgical History: Other Additional Past Surgical Histo: L BREAST L FOOT R KNEE Alcohol Use: None Drug Use: None Adult General Chief Complaint Chief Complaint: OTHER COMPLAINTS HPI HPI Patient is a 58 year old [f__sex] who presents with [] Review of Systems Review of Systems Constitutional: Denies fever or chills [] Eyes: Denies change in visual acuity, redness, or eye pain [] HENT: Denies nasal congestion or sore throat [] Respiratory: Denies cough or shortness of breath [] Cardiovascular: No additional information not addressed in HPI [] GI: Denies abdominal pain, nausea, vomiting, bloody stools or diarrhea [] : Denies dysuria or hematuria [] Musculoskeletal: Denies back pain or joint pain [] Integument: Denies rash or skin lesions [] Neurologic: Denies headache, focal weakness or sensory changes [] Endocrine: Denies polyuria or polydipsia [] All other systems were reviewed and found to be within normal limits, except as documented in this note. Current Medications Current Medications Current Medications Medications (Trade) Dose Ordered Sig/[place] Start Time Stop Time Status Last Admin Dose Admin Acetaminophen/ Hydrocodone Bitart (Lortab 5/325) 1 tab 1X ONCE 10/10/18 21:30 10/10/18 21:31 DC 10/10/18 21:30 1 TAB Fentanyl Citrate (Fentanyl 2ml Vial) 50 mcg 1X ONCE 10/10/18 21:00 10/10/18 21:01 DC 10/10/18 20:50 50 MCG Info (CONTRAST GIVEN -- Rx MONITORING) 1 each PRN DAILY PRN 10/10/18 19:15 10/10/18 21:53 DC Iohexol (Omnipaque 350 Mg/ml) 90 ml 1X ONCE 10/10/18 19:30 10/10/18 19:31 DC 10/10/18 19:50 90 ML Sodium Chloride 1,000 ml @ 1,000 mls/hr 1X ONCE 10/10/18 19:00 10/10/18 19:59 DC 10/10/18 19:28 1,000 MLS/HR Allergies Allergies Allergies Coded Allergies Type Severity Reaction Last Updated Verified atorvastatin Allergy Severe throat swells 09/12/18 Yes hydroxyzine Allergy Severe DIZZINESS, "I FEEL LIKE IM DRUNK" 08/16/18 Yes raspberry Allergy Severe CHOKING SENSATION IN THROAT 10/25/15 Yes tramadol Allergy Severe VOMITING 08/16/18 Yes amoxicillin Allergy Intermediate 10/13/17 Yes aspirin Allergy Intermediate 10/13/17 Yes codeine Allergy Intermediate 10/13/17 Yes ibuprofen Allergy Intermediate 10/13/17 Yes morphine Allergy Intermediate 10/13/17 Yes cephalexin Allergy Unknown 09/23/18 Yes ciprofloxacin Allergy Unknown 09/23/18 Yes pregabalin Allergy Unknown vomiting 09/23/18 Yes Physical Exam Physical Exam Constitutional: Well developed, well nourished, no acute distress, non-toxic appearance. [] HENT: Normocephalic, atraumatic, bilateral external ears normal, oropharynx moist, no oral exudates, nose normal. [] Eyes: PERRLA, EOMI, conjunctiva normal, no discharge. [] Neck: Normal range of motion, no tenderness, supple, no stridor. [] Cardiovascular:Heart rate regular rhythm, no murmur [] Lungs & Thorax: Bilateral breath sounds clear to auscultation [] Abdomen: Bowel sounds normal, soft, no tenderness, no masses, no pulsatile masses. [] Skin: Warm, dry, no erythema, no rash. [] Back: No tenderness, no CVA tenderness. [] Extremities: No tenderness, no cyanosis, no clubbing, ROM intact, no edema. [] Neurologic: Alert and oriented X 3, normal motor function, normal sensory function, no focal deficits noted. [] Psychologic: Affect normal, judgement normal, mood normal. [] Current Patient Data Vital Signs Vital Signs Date Time Temp Pulse Resp B/P (MAP) Pulse Ox O2 Delivery O2 Flow Rate FiO2 10/10/18 21:40 81 16 144/82 (102) 98 Room Air 10/10/18 18:40 99.3 99.3 Lab Values Laboratory Tests Test 10/10/18 19:10 White Blood Count 6.5 x10^3/uL (4.0-11.0) Red Blood Count 4.36 x10^6/uL (3.50-5.40) Hemoglobin 11.7 g/dL (12.0-15.5) L Hematocrit 35.7 % (36.0-47.0) L Mean Corpuscular Volume 82 fL (79-100) Mean Corpuscular Hemoglobin 27 pg (25-35) Mean Corpuscular Hemoglobin Concent 33 g/dL (31-37) Red Cell Distribution Width 13.1 % (11.5-14.5) Platelet Count 294 x10^3/uL (140-400) Neutrophils (%) (Auto) 48 % (31-73) Lymphocytes (%) (Auto) 36 % (24-48) Monocytes (%) (Auto) 8 % (0-9) Eosinophils (%) (Auto) 7 % (0-3) H Basophils (%) (Auto) 1 % (0-3) Neutrophils # (Auto) 3.1 x10^3uL (1.8-7.7) Lymphocytes # (Auto) 2.4 x10^3/uL (1.0-4.8) Monocytes # (Auto) 0.5 x10^3/uL (0.0-1.1) Eosinophils # (Auto) 0.4 x10^3/uL (0.0-0.7) Basophils # (Auto) 0.1 x10^3/uL (0.0-0.2) Prothrombin Time 13.6 SEC (11.7-14.0) Prothrombin Time INR 1.1 (0.8-1.1) PTT 34 SEC (24-38) Sodium Level 140 mmol/L (136-145) Potassium Level 3.8 mmol/L (3.5-5.1) Chloride Level 101 mmol/L (98-107) Carbon Dioxide Level 32 mmol/L (21-32) Anion Gap 7 (6-14) Blood Urea Nitrogen 24 mg/dL (7-20) H Creatinine 0.8 mg/dL (0.6-1.0) Estimated GFR (Cockcroft-Gault) 74.2 BUN/Creatinine Ratio 30 (6-20) H Glucose Level 288 mg/dL (70-99) H Calcium Level 9.2 mg/dL (8.5-10.1) Magnesium Level 1.8 mg/dL (1.8-2.4) Total Bilirubin 0.2 mg/dL (0.2-1.0) Aspartate Amino Transferase (AST) 13 U/L (15-37) L Alanine Aminotransferase (ALT) 17 U/L (14-59) Alkaline Phosphatase 105 U/L (46-116) Creatine Kinase 83 U/L (26-192) Creatine Kinase MB (Mass) 2.5 ng/mL (0.0-3.6) Creatine Kinase MB Relative Index 3.0 % (0-4) Troponin I Quantitative < 0.017 ng/mL (0.000-0.055) Total Protein 7.2 g/dL (6.4-8.2) Albumin 2.9 g/dL (3.4-5.0) L Albumin/Globulin Ratio 0.7 (1.0-1.7) L Lipase 161 U/L (73-393) Laboratory Tests 10/10/18 19:10 Laboratory Tests 10/10/18 19:10 EKG EKG @1859 NSR at 86bpm, NO ST elevation, nonspecific t wave inversion V2, incomplete RBBB. Radiology/Procedures Radiology/Procedures PROCEDURE: CT ANGIOGRAPHY CHEST CT arteriogram of the chest. HISTORY: Pleuritic chest pain CT arteriogram was done using 90 mL Omnipaque 350 contrast. Sagittal and coronal MIP images were reconstructed. There is a multinodular goiter including substernal thyroid from the left side. There is no mediastinal adenopathy. There is no pleural effusion. Upper aspect of the liver and spleen are unremarkable. Adrenal glands are normal. There is mild atelectasis in the lung bases without other infiltrates. This study is negative for evidence of a pulmonary embolus. Thoracic aorta is not enlarged. There is no dissection. Origins of great vessels are widely patent. IMPRESSION: 1. Large multinodular goiter. 2. Negative for a pulmonary embolus. 3. Mild atelectasis without other infiltrates. PQRS Compliance Statement: One or more of the following individualized dose reduction techniques were utilized for this examination: 1. Automated exposure control 2. Adjustment of the mA and/or kV according to patient size 3. Use of iterative reconstruction technique Electronically signed by: Milton Valencia MD (10/10/2018 8:11 PM) [facility] Course & Med Decision Making Course & Med Decision Making Pertinent Labs and Imaging studies reviewed. (See chart for details) [] Dragon Disclaimer Dragon Disclaimer This electronic medical record was generated, in whole or in part, using a voice recognition dictation system. Departure Departure Impression: Primary Impression: Atypical chest pain Additional Impression: Thyroid mass Disposition: HOME, SELF-CARE Condition: STABLE Referrals: ANN KIRK (PCP) Patient Instructions: Chest Pain (Nonspecific), [id number] Additional Instructions: Continue current plan for thyroidectomy/chest surgery this coming week. Scripts Hydrocodone/Apap 5-325 (NORCO 5-325 TABLET) 1 Each Tablet 0.5-1 TAB PO PRN Q6HRS PRN for PAIN, #6 TAB 0 Refills Prov: FRANTZ MELISSA DO 10/10/18 Problem Qualifiers FRANTZ MELISSA DO Oct 10, 2018 20:53
[2018-10-10] MEDS ORDERED: HYDROcodone/APAP 5/325MG 1 TAB TABLET PO ONE (21:30)
[2018-10-10] MEDS ORDERED: HYDR-3164 PO (21:32)
[2018-10-10 21:40] VITALS: BP 144/82
--- NOTE | 2018-10-11 06:23 | EKG ---
[facility] [address] [place] [address] Test Date: 2018-10-10 Test Time: 18:59:54 Pat Name: TAYLOR SARAVIA Department: Room: Gender: F Surgical Scrub Technologist: : [id number] Requested By: FRANTZ MELISSA Order Number: [id number] Reading MD: Measurements Intervals [place] Rate: 86 P: -34 DE: 134 QRS: -26 QRSD: 68 T: 46 QT: 370 QTc: 446 Interpretive Statements SINUS RHYTHM LEFTWARD AXIS QRS(T) CONTOUR ABNORMALITY CONSISTENT WITH ANTEROSEPTAL INFARCT AGE UNDETERMINED CONSISTENT WITH INFERIOR INFARCT PROBABLY OLD ABNORMAL ECG RI6.01 No previous ECG available for comparison
[2018-10-12] MEDS ORDERED: ACETAMINOPHEN PM PO (09:01)
[2018-10-12] MEDS ORDERED: HYDR-2761 PO (09:01)
== END 2018-10-10 21:40 | disposition home or self-care (01) ==
LOC: ER 17:21
DX: R07.89 Other chest pain (principal); E07.9 Disorder of thyroid, unspecified; E10.40 Type 1 diabetes mellitus with diabetic neuropathy, unspecified; E78.00 Pure hypercholesterolemia, unspecified; I10 Essential (primary) hypertension; E03.9 Hypothyroidism, unspecified; Z88.8 Allergy status to other drugs, medicaments and biological substances; Z88.1 Allergy status to other antibiotic agents; Z88.6 Allergy status to analgesic agent; Z88.5 Allergy status to narcotic agent; Z91.018 Allergy to other foods; Z86.73 Personal history of transient ischemic attack (TIA), and cerebral infarction without residual deficits
CPT/HCPCS: 36415; 71275; 80053; 82553; 83690; 83735; 84484; 85025; 85610; 85730; 93005; 96374; 96376; 99285; J3010; J7030; Q9967

== ENCOUNTER 2018-10-13 08:01 | Observation (INO) | payer OTHER ==
[2018-10-13] VITALS (11 sets, daily range): BP systolic 123–185; BP diastolic 63–99
[~2018-10-13 08:01] MED LIST changes: +ACETAMINOPHEN PM PO; +BUPIVACAINE-EPI 0.25%-1:200000 MPF 30 ML VIAL. ONE; +CLINDAMYCIN 900MG PREMIX 50 ML IV PRN; +HYDR-2761 PO; +HYDR-3164 PO; +INSULIN LISPRO 100 UNIT/ML 3ML VIAL for OP,RR ONLY. SQ PRN; +IV RINGERS,LACTATED 1000ML 1,000 ML IV SCH; +LIDOCAINE 1% PF 2 ML VIAL. ID PRN; +ONDANSETRON PF 4 MG/2 ML VIAL. IV PRN; +PROCHLORPERAZINE 10 MG/2 ML VIAL. IV PRN; +fentaNYL PF VIAL 100 MCG/2 ML VIAL IV PRN
[2018-10-13] MEDS: INSULIN LISPRO 100 UNIT/ML 3ML VIAL for OP,RR ONLY. SQ PRN ×2 (09:01→12:41)
--- NOTE | 2018-10-13 09:02 | NUR ---
BLOOD SUGAR 250. DR. ADAMS NOTIFIED PT REFUSED 6 UNITS OF HUMALOG INSULIN. PT STATES IT WILL DROP HER BS TOO MUCH. DR. ADAMS STATES OK TO GIV 2 UNITS HUMALOG SUBQ REQUESTED BY PT
--- NOTE | 2018-10-13 09:03 | PDOC1 ---
History and Physical Date of Admission Date of Admission DATE: 10/13/18 TIME: 08:59 Identification/Chief Complaint Chief Complaint Large thyroid with difficulty swallowing Source Source: Patient History of Present Illness History of Present Illness 58-year-old female recently hospitalized with fatigue and syncopal episode that time she was found to have enlarged thyroid gland CT scan performed at that time showed external compression of the esophagus and deviation of the trachea secondary to the enlarged thyroid gland. She been followed by rn provider relations for hypothyroidism for several years had been on antithyroid medication. A formal FNA of the thyroid gland had not been done she was set up to have this done it shows benign tissue consistent with a multinodular goiter. Past Medical History Cardiovascular: Hyperlipidemia, Other Pulmonary: COPD CENTRAL NERVOUS SYSTEM: CVA, Periperal neuropathy GI: No pertinent hx Heme/Onc: No pertinent hx Hepatobiliary: No pertinent hx Psych: No pertinent hx Musculoskeletal: Osteoarthritis Rheumatologic: No pertinent hx Infectious disease: Other Renal/: No pertinent hx Endocrine: Diabetes, Hyperthyroidism Past Surgical History Past Surgical History: Other Family History Family History: Diabetes, Family History Unknown Social History ALCOHOL: none Drugs: None Current Medications Current Medications Current Medications Ondansetron HCl (Zofran) 4 mg PRN Q6HRS PRN IV NAUSEA/VOMITING; Start 10/13/18 at 07:00; Stop 10/14/18 at 06:59; Status UNV Fentanyl Citrate (Fentanyl 2ml Vial) 25 mcg PRN Q5MIN PRN IV MILD PAIN 1-3; Start 10/13/18 at 07:00; Stop 10/14/18 at 06:59; Status UNV Fentanyl Citrate (Fentanyl 2ml Vial) 50 mcg PRN Q5MIN PRN IV MODERATE TO SEVERE PAIN; Start 10/13/18 at 07:00; Stop 10/14/18 at 06:59; Status UNV Ringer's Solution 1,000 ml @ 30 mls/hr Q24H IV ; Start 10/13/18 at 07:00; Stop 10/13/18 at 18:59; Status UNV Lidocaine HCl (Xylocaine-Mpf 1% 2ml Vial) 2 ml PRN 1X PRN ID PRIOR TO IV START; Start 10/13/18 at 07:00; Stop 10/14/18 at 06:59; Status UNV Prochlorperazine Edisylate (Compazine) 5 mg PACU PRN PRN IV NAUSEA, MRX1; Start 10/13/18 at 07:00; Stop 10/14/18 at 06:59; Status UNV Ondansetron HCl (Zofran) 4 mg PRN Q6HRS PRN IV NAUSEA/VOMITING; Start 10/13/18 at 07:00; Stop 10/14/18 at 06:59 Fentanyl Citrate (Fentanyl 2ml Vial) 25 mcg PRN Q5MIN PRN IV MILD PAIN 1-3; Start 10/13/18 at 07:00; Stop 10/14/18 at 06:59 Fentanyl Citrate (Fentanyl 2ml Vial) 50 mcg PRN Q5MIN PRN IV MODERATE TO SEVERE PAIN; Start 10/13/18 at 07:00; Stop 10/14/18 at 06:59 Ringer's Solution 1,000 ml @ 30 mls/hr Q24H IV Last administered on 10/13/18at 08:52; Start 10/13/18 at 07:00; Stop 10/13/18 at 18:59 Lidocaine HCl (Xylocaine-Mpf 1% 2ml Vial) 2 ml PRN 1X PRN ID PRIOR TO IV START; Start 10/13/18 at 07:00; Stop 10/14/18 at 06:59 Prochlorperazine Edisylate (Compazine) 5 mg PACU PRN PRN IV NAUSEA, MRX1; Start 10/13/18 at 07:00; Stop 10/14/18 at 06:59 Insulin Human Lispro (HumaLOG VIAL for OP,RR ONLY) 0-10 units PRN Q1HR PRN SQ PER PROTOCOL; Start 10/12/18 at 09:45; Stop 10/12/18 at 12:58; Status DC Insulin Human Lispro (HumaLOG VIAL for OP,RR ONLY) 0-10 units PRN Q1HR PRN SQ PER PROTOCOL; Start 10/13/18 at 06:00 Clindamycin Phosphate 50 ml @ 100 mls/hr 1X PREOP PRN IV PRIOR TO PROCEDURE; Start 10/13/18 at 06:00; Stop 10/13/18 at 18:00 Bupivacaine HCl/ Epinephrine Bitart (Sensorcaine-Epi 0.25%-1:[id number] Mpf) 30 ml STK-MED ONCE .ROUTE ; Start 10/13/18 at 05:50; Stop 10/13/18 at 06:51; Status DC Active Scripts Active [place] 5-325 Tablet (Acetaminophen/Hydrocodone Bitart) 1 Each Tablet 0.5-1 Tab PO PRN Q6HRS PRN Reported [Acetaminophen Pm] 1 Tab PO Novolog Flexpen (Insulin Aspart) 100 Unit/1 Ml Insuln.pen 1 Unit SQ TIDAC Midodrine Hcl 10 Mg Tablet 10 Mg PO TID PRN Basaglar Kwikpen U-100 (Insulin Glargine,Hum.rec.anlog) 100 Unit/1 Ml Insuln.pen 30 Unit SQ DAILY08 Lovastatin 10 Mg Tablet 10 Mg PO HS Methimazole 5 Mg Tablet 5 Mg PO DAILY08 Gabapentin (Gabapentin) 300 Mg Capsule 600 Mg PO HS Amitriptyline Hcl 100 Mg Tablet 1 Tab PO QHS Allergies Allergies: Coded Allergies: atorvastatin (Verified Allergy, Severe, throat swells, 10/13/18) hydroxyzine (Verified Allergy, Severe, DIZZINESS, "I FEEL LIKE IM DRUNK", 10/13/18) raspberry (Verified Allergy, Severe, CHOKING SENSATION IN THROAT, 10/13/18) tramadol (Verified Allergy, Severe, VOMITING, 10/13/18) amoxicillin (Verified Allergy, Intermediate, 10/13/18) aspirin (Verified Allergy, Intermediate, 10/13/18) codeine (Verified Allergy, Intermediate, 10/13/18) ibuprofen (Verified Allergy, Intermediate, 10/13/18) morphine (Verified Allergy, Intermediate, 10/13/18) simvastatin (Verified Allergy, Intermediate, 10/13/18) LEGS BUCKEL, LOSE FEELING cephalexin (Verified Allergy, Unknown, 10/13/18) ciprofloxacin (Verified Allergy, Unknown, 10/13/18) pregabalin (Verified Allergy, Unknown, vomiting, 10/13/18) ROS HEENT: YES: Other (difficulty swallowing) Physical Exam General: Alert, Oriented X3, Cooperative, No acute distress HEENT: Atraumatic, PERRLA, EOMI, Other (large thyroid larger on the left and right) Lungs: Clear to auscultation, Normal air movement Heart: RRR, no murmurs Abdomen: Normal bowel sounds, Soft, No tenderness Rectal Exam: not examined Extremities: No edema Skin: No significant lesion Neuro: Normal speech Psych/Mental Status: Mental status NL Vitals Vitals Vital Signs Date Time Temp Pulse Resp B/P (MAP) Pulse Ox O2 Delivery O2 Flow Rate FiO2 10/13/18 08:28 97.3 92 16 193/94 97 Room Air 97.3 Images Images As in history of present illness VTE Prophylaxis Ordered VTE Prophylaxis Devices: Yes VTE Pharmacological Prophylaxi: Contraindicated Assessment/Plan Assessment/Plan Enlarged thyroid gland multinodular goiter with compression symptoms dysphasia and total thyroidectomy PARMINDER INGRAM MD Oct 13, 2018 09:02
[2018-10-13] MEDS ORDERED: ACETAMINOPHEN 500 MG TABLET PO ONE ×2 (09:10→09:30)
[2018-10-13] MEDS ORDERED: PROPOFOL 20 ML IV ONE (09:22)
[2018-10-13] MEDS ORDERED: DEXAMETHASONE SOD PHOS 4 MG/ML VIAL ONE ×3 (09:22→10:23)
[2018-10-13] MEDS ORDERED: ONDANSETRON PF 4 MG/2 ML VIAL. ONE (09:22)
[2018-10-13] MEDS ORDERED: LIDOCAINE 2% PF 5 ML VIAL. ONE (09:22)
[2018-10-13] MEDS ORDERED: MIDAZOLAM HCL/PF 2 MG/2 ML VIAL. ONE (09:23)
[2018-10-13] MEDS ORDERED: fentaNYL PF VIAL 100 MCG/2 ML VIAL ONE ×2 (09:23→12:44)
[2018-10-13] MEDS ORDERED: SURGICEL HEMOSTAT 4X8 EACH. ONE (10:12)
[2018-10-13] MEDS ORDERED: PHENYLEPHRINE in 0.9% NACL PF 1 MG/10 ML SYRINGE. IV ONE (10:23)
[2018-10-13] MEDS ORDERED: PROPOFOL 50 ML IV ONE ×2 (10:23→12:04)
[2018-10-13] MEDS ORDERED: SEVOFLURANE 61 TO 120 MINUTES. IH ONE (12:08)
--- NOTE | 2018-10-13 12:24 | PDOC4 ---
Operative Note Operative Note Date: 10/13/2018 Preoperative diagnosis: Multinodular goiter Postoperative diagnosis: Same with mediastinal thyroid Procedure: Total thyroidectomy Surgeon: Nathan Engel assist: Emerson Specimen: Thyroid Dictation: Patient is a 58-year-old female who recently seen in the hospital with difficulty with swallowing CT scan of her chest and neck showed a large thyroid extending into the mediastinum causing compression of the esophagus and deviation of the trachea biopsies of the thyroid showed benign features of multinodular goiter. Procedure of total thyroidectomy was explained to the patient detail risk benefits were also discussed including bleeding infection possibly needing extension into the mediastinum alternatives to this procedure also discussed with patient is seemed to understand and gave both verbal and written consent to have the procedure performed. Patient was taken to the operating room placed in supine position general anesthesia was initiated once patient was sleep and intubated her neck and chest were prepped and draped usual sterile fashion using ChloraPrep a horizontal incision was made 2 finger breaths above the sternal notch was carried down through the subcutaneous tissues left carotid right hemostasis down to the platysmas muscle which was incised a flap was propagated proximally and distally with blunt and sharp dissection the strap muscles in the midline were incised opening up visualized and the thyroid. Tinges first turned to the left thyroid superior pole vessels were controlled and ligated with 3-0 Vicryl similarly the inferior pole vessels were ligated with 3-0 Vicryl the recurrent laryngeal nerve was visualized and tested with the stimulator probe and the thyroid was taken off the trachea with the Harmonic scalpel. Attention then turned to the right thyroid worrisomely taken down the right thyroid gland was much larger than the left was taken down in similar fashion removed and sent for pathology with sutures marking the right superior pole and the left inferior pole. Noted that on the left side there was a mass separate from the thyroid extended down into the mediastinum tissue from this mass was sent for pathology to have a frozen section pathologist returned reading of benign thyroid appears to be extrathyroid tissue into the mediastinum this was dissected out of the mediastinum was sharp and blunt dissection using the Harmonic scalpel once this was removed was sent for pathology wound was irrigated and suctioned dry hemostasis to be appropriate strap muscles in the midline were closed running 3-0 Vicryl the platysma muscle was reapproximated with 3-0 Vicryl single interrupted sutures and the skin was approximate for septic and a Monocryl Mastisol Steri-Strips and island dressing were applied. Patient was awakened and asked bated operating room taken to recovery in stable condition all sponge instrument needle counts listed as correct estimate blood loss 30 mL PARMINDER INGRAM MD Oct 13, 2018 12:24
[2018-10-13] MEDS ORDERED: 0.9 % SODIUM CHLORIDE 10 ML DISP.SYRIN. IV PRN (12:30)
[2018-10-13] MEDS ORDERED: ACETAMINOPHEN 500 MG TABLET PO PRN (12:30)
[2018-10-13] MEDS ORDERED: ONDANSETRON PF 4 MG/2 ML VIAL. IV PRN (12:30)
[2018-10-13] MEDS: fentaNYL PF VIAL 100 MCG/2 ML VIAL IV PRN ×2 (12:47→13:14)
--- NOTE | 2018-10-13 14:00 | NUR ---
pt arrived to unit at 1350 via bed from PACU in stable condition. pt has family at bedside with call light within reach. pt is on 2LNC. pt is alert and oriented. pt dressing is CDI. received report from MARINA Pena in PACU. will continue to monitor.
[2018-10-13] MEDS: IV DEXTROSE 5%-LACT RINGERS 1,000 ML IV SCH (16:01)
[2018-10-13] MEDS ORDERED: HYDROcodone/APAP 5/325MG 1 TAB TABLET PO PRN ×2 (18:15→18:30)
[2018-10-13] MEDS ORDERED: DEXTROSE 50% 25 GM / 50ML DISP.SYRIN. IV PRN (18:30)
[2018-10-13] MEDS: MIDODRINE 5 MG TABLET PO SCH (18:45)
[2018-10-13] MEDS: INSULIN LISPRO 300 UNITS/3 ML INSULN.PEN. SQ SCH (19:31)
[2018-10-13] MEDS: INSULIN GLARGINE 300 UNITS/3 ML INSULN.PEN. SQ SCH (19:32)
[2018-10-13] MEDS ORDERED: LOVASTATIN 10 MG PO SCH (21:00)
[2018-10-13] MEDS ORDERED: GABAPENTIN 300 MG CAPSULE. PO SCH (21:00)
[2018-10-13] MEDS ORDERED: AMITRIPTYLINE HCL 25 MG TABLET. PO SCH (21:00)
[2018-10-13] MEDS ORDERED: METOPROLOL TARTRATE 5 MG/5 ML VIAL. IVP PRN (22:45)
[2018-10-13] MEDS ORDERED: INSULIN LISPRO 300 UNITS/3 ML INSULN.PEN. SQ ONE (23:00)
--- NOTE | 2018-10-13 23:20 | NUR ---
RN administered 10 units of Humalog instead of 30 units at the request of the patient. RN will continue to monitor patient.
[2018-10-14 03:18] VITALS: BP 127/71
[2018-10-14 04:31] LABS: BASO % 0 % (0-3); EOS % 0 % (0-3); HEMATOCRIT 30.2 % (36.0-47.0); LYMPH # 1.3 x10^3/uL (1.0-4.8); LYMPH % 14 % (24-48); MEAN CORPUSCULAR HEMOGLOBIN 27 pg (25-35); MEAN CORPUSCULAR HGB CONC 33 g/dL (31-37); MEAN CORPUSCULAR VOLUME 82 fL (79-100); MONO # 0.5 x10^3/uL (0.0-1.1); MONO % 5 % (0-9); NEUT # 7.5 x10^3uL (1.8-7.7); NEUT % 81 % (31-73); PLATELET COUNT 225 x10^3/uL (140-400); RED BLOOD COUNT 3.68 x10^6/uL (3.50-5.40); RED CELL DISTRIBUTION WIDTH 13.5 % (11.5-14.5); WHITE BLOOD COUNT 9.3 x10^3/uL (4.0-11.0)
[2018-10-14] MEDS: IV DEXTROSE 5%-LACT RINGERS 1,000 ML IV SCH ×2 (05:38→08:54)
[2018-10-14] MEDS ORDERED: LEVOTHYROXINE 100 MCG TABLET PO SCH (06:00)
[2018-10-14 07:00] VITALS: BP 117/69
[2018-10-14] MEDS: MIDODRINE 5 MG TABLET PO SCH (07:00)
[2018-10-14] MEDS: INSULIN LISPRO 300 UNITS/3 ML INSULN.PEN. SQ SCH (08:00)
[2018-10-14] MEDS ORDERED: INSULIN LISPRO 300 UNITS/3 ML INSULN.PEN. SQ SCH (08:00)
[2018-10-14] MEDS: INSULIN GLARGINE 300 UNITS/3 ML INSULN.PEN. SQ SCH (09:06)
--- NOTE | 2018-10-14 09:57 | PDOC ---
KASEY GAMEZ COMPUTER EDUCATION PROFESSOR 10/14/18 0957: SURGICAL PROGRESS NOTE Subjective tolerating diet minimal sore throat voice strong Vital Signs Vital Signs Date Time Temp Pulse Resp B/P (MAP) Pulse Ox O2 Delivery O2 Flow Rate FiO2 10/14/18 07:00 97.7 84 18 117/69 (85) 97 Room Air 97.7 10/13/18 14:00 2.0 I&O Intake and Output 10/14/18 06:59 Intake Total 2360 ml Output Total 305 ml Balance 2055 ml Intake Oral 360 ml IV Total 2000 ml Output Urine Total 275 ml Estimated Blood Loss 30 ml # Voids 4 General: Alert, Oriented X3, Cooperative, No acute distress HEENT: Other (incision c/d/i, no erythema, no swelling or ecchymosis) Labs Laboratory Tests Test 10/13/18 12:37 10/13/18 13:37 10/13/18 17:05 10/13/18 20:54 Glucose (Fingerstick) 228 mg/dL (70-99) 213 mg/dL (70-99) 343 mg/dL (70-99) 495 mg/dL (70-99) Test 10/13/18 22:02 10/14/18 00:53 10/14/18 04:00 10/14/18 07:38 Glucose (Fingerstick) 443 mg/dL (70-99) 316 mg/dL (70-99) 215 mg/dL (70-99) White Blood Count 9.3 x10^3/uL (4.0-11.0) Red Blood Count 3.68 x10^6/uL (3.50-5.40) Hemoglobin 10.0 g/dL (12.0-15.5) Hematocrit 30.2 % (36.0-47.0) Mean Corpuscular Volume 82 fL (79-100) Mean Corpuscular Hemoglobin 27 pg (25-35) Mean Corpuscular Hemoglobin Concent 33 g/dL (31-37) Red Cell Distribution Width 13.5 % (11.5-14.5) Platelet Count 225 x10^3/uL (140-400) Neutrophils (%) (Auto) 81 % (31-73) Lymphocytes (%) (Auto) 14 % (24-48) Monocytes (%) (Auto) 5 % (0-9) Eosinophils (%) (Auto) 0 % (0-3) Basophils (%) (Auto) 0 % (0-3) Neutrophils # (Auto) 7.5 x10^3uL (1.8-7.7) Lymphocytes # (Auto) 1.3 x10^3/uL (1.0-4.8) Monocytes # (Auto) 0.5 x10^3/uL (0.0-1.1) Eosinophils # (Auto) 0.0 x10^3/uL (0.0-0.7) Basophils # (Auto) 0.0 x10^3/uL (0.0-0.2) Laboratory Tests Test 10/13/18 12:37 10/13/18 13:37 10/13/18 17:05 10/13/18 20:54 Glucose (Fingerstick) 228 mg/dL (70-99) 213 mg/dL (70-99) 343 mg/dL (70-99) 495 mg/dL (70-99) Test 10/13/18 22:02 10/14/18 00:53 10/14/18 04:00 10/14/18 07:38 Glucose (Fingerstick) 443 mg/dL (70-99) 316 mg/dL (70-99) 215 mg/dL (70-99) White Blood Count 9.3 x10^3/uL (4.0-11.0) Red Blood Count 3.68 x10^6/uL (3.50-5.40) Hemoglobin 10.0 g/dL (12.0-15.5) Hematocrit 30.2 % (36.0-47.0) Mean Corpuscular Volume 82 fL (79-100) Mean Corpuscular Hemoglobin 27 pg (25-35) Mean Corpuscular Hemoglobin Concent 33 g/dL (31-37) Red Cell Distribution Width 13.5 % (11.5-14.5) Platelet Count 225 x10^3/uL (140-400) Neutrophils (%) (Auto) 81 % (31-73) Lymphocytes (%) (Auto) 14 % (24-48) Monocytes (%) (Auto) 5 % (0-9) Eosinophils (%) (Auto) 0 % (0-3) Basophils (%) (Auto) 0 % (0-3) Neutrophils # (Auto) 7.5 x10^3uL (1.8-7.7) Lymphocytes # (Auto) 1.3 x10^3/uL (1.0-4.8) Monocytes # (Auto) 0.5 x10^3/uL (0.0-1.1) Eosinophils # (Auto) 0.0 x10^3/uL (0.0-0.7) Basophils # (Auto) 0.0 x10^3/uL (0.0-0.2) Problem List Problems Medical Problems: (1) Dysphagia Status: Acute (2) Multinodular goiter Status: Acute Assessment/Plan s/p total thyroidectomy DC home FU 2 weeks FU with PARMINDER Guzman MD 10/14/18 1112: SURGICAL PROGRESS NOTE Assessment/Plan Agree with Nash's assessment and plan KASEY GAMEZ APRN Oct 14, 2018 09:57 PARMINDER INGRAM MD Oct 14, 2018 11:12
[2018-10-14] MEDS ORDERED: HYDR-2761 PO (09:58)
[2018-10-14] MEDS ORDERED: LEVO100T PO (09:58)
--- NOTE | 2018-10-14 10:00 | DISCH ---
DISCHARGE INSTRUCTIONS Condition on Discharge Condition on Discharge: Stable Activity After Discharge Activity Instructions for Disc: No restrictions, Resume previous activity, Activity as tolerated Exercise Instruction after Dis: Progress as tolerated Driving Instructions after Dis: Do not drive (while taking narcotics) Weight Bearing Status after Di: No restrictions, Full weight bearing, As tolerated Diet after Discharge Diet after Discharge: Diabetic No Calorie Level Diet Texture: Regular Wound Incision Care Wound/Incision Care: May get incision wet, No wound care needed Checks after Discharge Checks after discharge: Check blood press - daily, Check blood sugar, ac/hs, Check your Temp as needed Contacting the DRNoe after DC Call your doctor for: Concerns you may have Follow-Up Follow up with: Dr Evans 2 weeks, call to schedule [phone] Follow Up With: FU with PCP and endo Treatment/Equipment after DC Adaptive Equipment Issued: None KASEY GAMEZ APRN Oct 14, 2018 10:00
--- NOTE | 2018-10-14 12:09 | NUR ---
SW following for discharge planning. Discussed with RN, pt is from home. RN advised no SW needs and anticipates pt will discharge home today with self care.
--- NOTE | 2018-10-14 12:49 | PDOC ---
[facility] [facility] PROGRESS NOTE Chief Complaint Chief Complaint Postop total thyroidectomy Hyperlipidemia, Other COPD CVA, Periperal neuropathy GI: No pertinent hx Diabetes Hyperthyroid Osteoarthritis History of Present Illness History of Present Illness Patient seen and examined Discussed with RN Vitals Vitals Vital Signs Date Time Temp Pulse Resp B/P (MAP) Pulse Ox O2 Delivery O2 Flow Rate FiO2 10/14/18 07:00 97.7 84 18 117/69 (85) 97 Room Air 97.7 10/13/18 14:00 2.0 Physical Exam General: Alert, Oriented X3, Cooperative, No acute distress Lungs: Clear Abdomen: Normal bowel sounds, Soft, No tenderness Extremities: No edema Skin: No significant lesion Labs Labs: Laboratory Tests Test 10/13/18 13:37 10/13/18 17:05 10/13/18 20:54 10/13/18 22:02 Glucose (Fingerstick) 213 mg/dL (70-99) 343 mg/dL (70-99) 495 mg/dL (70-99) 443 mg/dL (70-99) Test 10/14/18 00:53 10/14/18 04:00 10/14/18 07:38 Glucose (Fingerstick) 316 mg/dL (70-99) 215 mg/dL (70-99) White Blood Count 9.3 x10^3/uL (4.0-11.0) Red Blood Count 3.68 x10^6/uL (3.50-5.40) Hemoglobin 10.0 g/dL (12.0-15.5) Hematocrit 30.2 % (36.0-47.0) Mean Corpuscular Volume 82 fL (79-100) Mean Corpuscular Hemoglobin 27 pg (25-35) Mean Corpuscular Hemoglobin Concent 33 g/dL (31-37) Red Cell Distribution Width 13.5 % (11.5-14.5) Platelet Count 225 x10^3/uL (140-400) Neutrophils (%) (Auto) 81 % (31-73) Lymphocytes (%) (Auto) 14 % (24-48) Monocytes (%) (Auto) 5 % (0-9) Eosinophils (%) (Auto) 0 % (0-3) Basophils (%) (Auto) 0 % (0-3) Neutrophils # (Auto) 7.5 x10^3uL (1.8-7.7) Lymphocytes # (Auto) 1.3 x10^3/uL (1.0-4.8) Monocytes # (Auto) 0.5 x10^3/uL (0.0-1.1) Eosinophils # (Auto) 0.0 x10^3/uL (0.0-0.7) Basophils # (Auto) 0.0 x10^3/uL (0.0-0.2) Assessment and Plan Assessmemt and Plan Problems Medical Problems: (1) Dysphagia Status: Acute (2) Multinodular goiter Status: Acute Postop total thyroidectomy Hyperlipidemia, Other COPD CVA, Periperal neuropathy GI: No pertinent hx Diabetes Hyperthyroid Osteoarthritis Plan Wound correction meds Labs PT OT DVT prophylaxis Full code Comment Review of Relevant I have reviewed the following items zurdo (where applicable) has been applied. Labs Laboratory Tests Test 10/13/18 08:59 10/13/18 12:37 10/13/18 13:37 10/13/18 17:05 Glucose (Fingerstick) 250 mg/dL (70-99) 228 mg/dL (70-99) 213 mg/dL (70-99) 343 mg/dL (70-99) Test 10/13/18 20:54 10/13/18 22:02 10/14/18 00:53 10/14/18 04:00 Glucose (Fingerstick) 495 mg/dL (70-99) 443 mg/dL (70-99) 316 mg/dL (70-99) White Blood Count 9.3 x10^3/uL (4.0-11.0) Red Blood Count 3.68 x10^6/uL (3.50-5.40) Hemoglobin 10.0 g/dL (12.0-15.5) Hematocrit 30.2 % (36.0-47.0) Mean Corpuscular Volume 82 fL (79-100) Mean Corpuscular Hemoglobin 27 pg (25-35) Mean Corpuscular Hemoglobin Concent 33 g/dL (31-37) Red Cell Distribution Width 13.5 % (11.5-14.5) Platelet Count 225 x10^3/uL (140-400) Neutrophils (%) (Auto) 81 % (31-73) Lymphocytes (%) (Auto) 14 % (24-48) Monocytes (%) (Auto) 5 % (0-9) Eosinophils (%) (Auto) 0 % (0-3) Basophils (%) (Auto) 0 % (0-3) Neutrophils # (Auto) 7.5 x10^3uL (1.8-7.7) Lymphocytes # (Auto) 1.3 x10^3/uL (1.0-4.8) Monocytes # (Auto) 0.5 x10^3/uL (0.0-1.1) Eosinophils # (Auto) 0.0 x10^3/uL (0.0-0.7) Basophils # (Auto) 0.0 x10^3/uL (0.0-0.2) Test 10/14/18 07:38 Glucose (Fingerstick) 215 mg/dL (70-99) Laboratory Tests Test 10/13/18 13:37 10/13/18 17:05 10/13/18 20:54 10/13/18 22:02 Glucose (Fingerstick) 213 mg/dL (70-99) 343 mg/dL (70-99) 495 mg/dL (70-99) 443 mg/dL (70-99) Test 10/14/18 00:53 10/14/18 04:00 10/14/18 07:38 Glucose (Fingerstick) 316 mg/dL (70-99) 215 mg/dL (70-99) White Blood Count 9.3 x10^3/uL (4.0-11.0) Red Blood Count 3.68 x10^6/uL (3.50-5.40) Hemoglobin 10.0 g/dL (12.0-15.5) Hematocrit 30.2 % (36.0-47.0) Mean Corpuscular Volume 82 fL (79-100) Mean Corpuscular Hemoglobin 27 pg (25-35) Mean Corpuscular Hemoglobin Concent 33 g/dL (31-37) Red Cell Distribution Width 13.5 % (11.5-14.5) Platelet Count 225 x10^3/uL (140-400) Neutrophils (%) (Auto) 81 % (31-73) Lymphocytes (%) (Auto) 14 % (24-48) Monocytes (%) (Auto) 5 % (0-9) Eosinophils (%) (Auto) 0 % (0-3) Basophils (%) (Auto) 0 % (0-3) Neutrophils # (Auto) 7.5 x10^3uL (1.8-7.7) Lymphocytes # (Auto) 1.3 x10^3/uL (1.0-4.8) Monocytes # (Auto) 0.5 x10^3/uL (0.0-1.1) Eosinophils # (Auto) 0.0 x10^3/uL (0.0-0.7) Basophils # (Auto) 0.0 x10^3/uL (0.0-0.2) Medications Current Medications Ondansetron HCl (Zofran) 4 mg PRN Q6HRS PRN IV NAUSEA/VOMITING; Start 10/13/18 at 07:00; Stop 10/14/18 at 06:59; Status UNV Fentanyl Citrate (Fentanyl 2ml Vial) 25 mcg PRN Q5MIN PRN IV MILD PAIN 1-3; Start 10/13/18 at 07:00; Stop 10/14/18 at 06:59; Status UNV Fentanyl Citrate (Fentanyl 2ml Vial) 50 mcg PRN Q5MIN PRN IV MODERATE TO SEVERE PAIN; Start 10/13/18 at 07:00; Stop 10/14/18 at 06:59; Status UNV Ringer's Solution 1,000 ml @ 30 mls/hr Q24H IV ; Start 10/13/18 at 07:00; Stop 10/13/18 at 18:59; Status UNV Lidocaine HCl (Xylocaine-Mpf 1% 2ml Vial) 2 ml PRN 1X PRN ID PRIOR TO IV START; Start 10/13/18 at 07:00; Stop 10/14/18 at 06:59; Status UNV Prochlorperazine Edisylate (Compazine) 5 mg PACU PRN PRN IV NAUSEA, MRX1; Start 10/13/18 at 07:00; Stop 10/14/18 at 06:59; Status UNV Ondansetron HCl (Zofran) 4 mg PRN Q6HRS PRN IV NAUSEA/VOMITING; Start 10/13/18 at 07:00; Stop 10/13/18 at 12:32; Status DC Fentanyl Citrate (Fentanyl 2ml Vial) 25 mcg PRN Q5MIN PRN IV MILD PAIN 1-3; Start 10/13/18 at 07:00; Stop 10/14/18 at 06:59; Status DC Fentanyl Citrate (Fentanyl 2ml Vial) 50 mcg PRN Q5MIN PRN IV MODERATE TO SEVERE PAIN Last administered on 10/13/18at 13:14; Start 10/13/18 at 07:00; Stop 10/14/18 at 06:59; Status DC Ringer's Solution 1,000 ml @ 30 mls/hr Q24H IV Last administered on 10/13/18at 08:52; Start 10/13/18 at 07:00; Stop 10/13/18 at 18:59; Status DC Lidocaine HCl (Xylocaine-Mpf 1% 2ml Vial) 2 ml PRN 1X PRN ID PRIOR TO IV START; Start 10/13/18 at 07:00; Stop 10/14/18 at 06:59; Status DC Prochlorperazine Edisylate (Compazine) 5 mg PACU PRN PRN IV NAUSEA, MRX1; Start 10/13/18 at 07:00; Stop 10/14/18 at 06:59; Status DC Insulin Human Lispro (HumaLOG VIAL for OP,RR ONLY) 0-10 units PRN Q1HR PRN SQ PER PROTOCOL; Start 10/12/18 at 09:45; Stop 10/12/18 at 12:58; Status DC Insulin Human Lispro (HumaLOG VIAL for OP,RR ONLY) 0-10 units PRN Q1HR PRN SQ PER PROTOCOL Last administered on 10/13/18at 12:41; Start 10/13/18 at 06:00; Stop 10/14/18 at 05:59; Status DC Clindamycin Phosphate 50 ml @ 100 mls/hr 1X PREOP PRN IV PRIOR TO PROCEDURE; Start 10/13/18 at 06:00; Stop 10/13/18 at 18:00; Status DC Bupivacaine HCl/ Epinephrine Bitart (Sensorcaine-Epi 0.25%-1:[id number] Mpf) 30 ml STK-MED ONCE .ROUTE Last administered on 10/13/18at 09:09; Start 10/13/18 at 05:50; Stop 10/13/18 at 06:51; Status DC Levofloxacin/ Dextrose 0 ml @ As Directed STK-MED ONCE IV ; Start 10/13/18 at 09:10; Stop 10/13/18 at 09:11; Status DC Acetaminophen (Tylenol) 500 mg STK-MED ONCE PO ; Start 10/13/18 at 09:10; Stop 10/13/18 at 09:11; Status DC Acetaminophen (Tylenol) 1,000 mg 1X ONCE PO Last administered on 10/13/18at 09:19; Start 10/13/18 at 09:30; Stop 10/13/18 at 09:31; Status DC Propofol 20 ml @ As Directed STK-MED ONCE IV ; Start 10/13/18 at 09:22; Stop 10/13/18 at 09:23; Status DC Lidocaine HCl (Lidocaine Pf 2% Vial) 5 ml STK-MED ONCE .ROUTE ; Start 10/13/18 at 09:22; Stop 10/13/18 at 09:23; Status DC Ondansetron HCl (Zofran) 4 mg STK-MED ONCE .ROUTE ; Start 10/13/18 at 09:22; Stop 10/13/18 at 09:23; Status DC Dexamethasone Sodium Phosphate (Decadron) 4 mg STK-MED ONCE .ROUTE ; Start 10/13/18 at 09:22; Stop 10/13/18 at 09:23; Status DC Dexamethasone Sodium Phosphate (Decadron) 4 mg STK-MED ONCE .ROUTE ; Start 10/13 at 09:22; Stop 10/13/18 at 09:23; Status DC Fentanyl Citrate (Fentanyl 2ml Vial) 100 mcg STK-MED ONCE .ROUTE ; Start at 09:23; Stop 10/13/18 at 09:24; Status DC Midazolam HCl (Versed) 2 mg STK-MED ONCE .ROUTE ; Start 10/13/18 at 09:23; Stop 10/13/18 at 09:24; Status DC Phenylephrine HCl (PHENYLEPHRINE in 0.9% NACL PF) 1 mg STK-MED ONCE IV ; Start 10/13/18 at 10:23; Stop 10/13/18 at 10:24; Status DC Propofol 50 ml @ As Directed STK-MED ONCE IV ; Start 10/13/18 at 10:23; Stop 10/13/18 at 10:24; Status DC Dexamethasone Sodium Phosphate (Decadron) 4 mg STK-MED ONCE .ROUTE ; Start 10/13/18 at 10:23; Stop 10/13/18 at 10:24; Status DC Cellulose (Surgicel Hemostat 4x8) 1 each STK-MED ONCE .ROUTE Last administered on 10/13/18at 11:18; Start 10/13/18 at 10:12; Stop 10/13/18 at 11:12; Status DC Propofol 50 ml @ As Directed STK-MED ONCE IV ; Start 10/13/18 at 12:04; Stop 10/13/18 at 12:05; Status DC Sevoflurane (Ultane) 60 ml STK-MED ONCE IH ; Start 10/13/18 at 12:08; Stop 10/13/18 at 12:09; Status DC Sodium Chloride (Normal Saline Flush) 3 ml QSHIFT PRN IV AFTER MEDS AND BLOOD DRAWS; Start 10/13/18 at 12:30 Ondansetron HCl (Zofran) 4 mg PRN Q6HRS PRN IV NAUSEA, 1ST CHOICE; Start 10/13/18 at 12:30 Dextrose/Lactated Ringer's 1,000 ml @ 75 mls/hr [id number] IV Last administered on 10/14/18at 05:38; Start 10/13/18 at 12:24 Acetaminophen (Tylenol) 1,000 mg PRN Q6HRS PRN PO FEVER Last administered on 10/13/18at 14:45; Start 10/13/18 at 12:30 Fentanyl Citrate (Fentanyl 2ml Vial) 100 mcg STK-MED ONCE .ROUTE ; Start 10/13/18 at 12:44; Stop 10/13/18 at 12:45; Status DC Acetaminophen/ Hydrocodone Bitart (Lortab 5/325) 1 tab PRN Q4HRS PRN PO MILD PAIN 1-3 Last administered on 10/13/18at 19:27; Start 10/13/18 at 18:15 Levothyroxine Sodium (Synthroid) 100 mcg DAILY06 PO Last administered on 10/14/18at 06:18; Start 10/14/18 at 06:00 Gabapentin (Neurontin) 600 mg HS PO Last administered on 10/13/18at 21:59; Start 10/13/18 at 21:00 Insulin Glargine (Lantus) 30 units DAILY08 SQ Last administered on 10/14/18at 09:06; Start 10/13/18 at 19:00 Amitriptyline HCl (Elavil) 100 mg QHS PO Last administered on 10/13/18at 21:58; Start 10/13/18 at 21:00 Non-Formulary Medication (Lovastatin ) 10 mg HS PO ; Start 10/13/18 at 21:00; Stop 10/13/18 at 21:00; Status DC Midodrine (Proamatine) 10 mg [id number] PO ; Start 10/13/18 at 19:00 Insulin Human Lispro (HumaLOG) 0-9 UNITS TIDWMEALS SQ Last administered on 10/13at 19:31; Start 10/13/18 at 19:00 Dextrose (Dextrose 50%-Water Syringe) 12.5 gm PRN Q15MIN PRN IV SEE COMMENTS; Start 10/13/18 at 18:30 Acetaminophen/ Hydrocodone Bitart (Lortab 5/325) 2 tab PRN Q4HRS PRN PO MODERATE PAIN; Start 10/13/18 at 18:30 Insulin Human Lispro (HumaLOG) 30 units 1X ONCE SQ Last administered on 10/13/18at 23:17; Start 10/13/18 at 23:00; Stop 10/13/18 at 23:01; Status DC Insulin Human Lispro (HumaLOG) 20 units TIDWMEALS SQ Last administered on 10/14/18at 09:00; Start 10/14/18 at 08:00 Metoprolol Tartrate (Lopressor Vial) 10 mg PRN Q4HRS PRN IVP HYPERTENSION SBP>160 Last administered on 10/13/18at 23:33; Start 10/13/18 at 22:45 Active Scripts Active Synthroid (Levothyroxine Sodium) 100 Mcg Tablet 100 Mcg PO DAILY06 Hydrocodone-Apap 5-325 (Hydrocodone Bit/Acetaminophen) 1 Tab Tablet 2 Tab PO PRN Q4HRS PRN Reported [Acetaminophen Pm] 1 Tab PO HS Novolog Flexpen (Insulin Aspart) 100 Unit/1 Ml Insuln.pen 1 Unit SQ TIDAC Midodrine Hcl 10 Mg Tablet 10 Mg PO TID Basaglar Kwikpen U-100 (Insulin Glargine,Hum.rec.anlog) 100 Unit/1 Ml Insuln.pen 30 Unit SQ DAILY08 Lovastatin 10 Mg Tablet 10 Mg PO HS Methimazole 5 Mg Tablet 5 Mg PO DAILY08 Gabapentin (Gabapentin) 300 Mg Capsule 600 Mg PO HS Amitriptyline Hcl 100 Mg Tablet 1 Tab PO QHS Vitals/I & O Vital Sign - Last 24 Hours 10/13/18 10/13/18 10/13/18 10/13/18 13:00 13:14 13:15 13:30 Temp 98.6 98.6 97.8 98.6 98.6 97.8 Pulse 83 83 78 Resp 12 12 12 12 B/P (MAP) 164/90 151/88 137/74 Pulse Ox 95 95 95 98 O2 Delivery Room Air Room Air Nasal Cannula Nasal Cannula O2 Flow Rate 1 2 10/13/18 10/13/18 10/13/18 10/13/18 13:35 14:00 14:02 14:15 Pulse 87 88 B/P (MAP) 157/93 (114) 161/88 (112) Pulse Ox 96 98 O2 Delivery Nasal Cannula Nasal Cannula O2 Flow Rate 2 2.0 10/13/18 10/13/18 10/13/18 10/13/18 14:30 14:30 14:45 15:00 Temp 98.2 98.2 Pulse 86 87 87 87 Resp 16 B/P (MAP) 145/86 (105) 145/86 (105) 154/95 (114) 157/93 (114) Pulse Ox 97 97 97 98 O2 Delivery Room Air 10/13/18 10/13/18 10/13/18 10/13/18 15:00 15:30 16:00 19:15 Temp 97.6 97.6 Pulse 87 86 87 99 Resp 20 B/P (MAP) 158/71 (100) 126/71 (89) 123/63 (83) 182/91 (121) Pulse Ox 97 96 96 96 O2 Delivery Room Air 10/13/18 10/13/18 10/13/18 10/13/18 19:27 19:45 20:27 22:28 Pulse 91 B/P (MAP) 174/98 (123) O2 Delivery Room Air Room Air Room Air Room Air 10/13/18 10/13/18 10/13/18 10/14/18 23:30 23:33 23:40 03:18 Temp 97.3 98.0 97.3 98.0 Pulse 95 92 92 76 Resp 18 16 B/P (MAP) 176/93 (120) 185/99 185/99 (127) 127/71 (89) Pulse Ox 97 97 O2 Delivery Room Air Room Air Room Air 10/14/18 10/14/18 07:00 07:00 Temp 97.7 97.7 Pulse 76 84 Resp 18 B/P (MAP) 127/71 117/69 (85) Pulse Ox 97 O2 Delivery Room Air Intake and Output 10/13/18 10/13/18 10/14/18 15:00 23:00 07:00 Intake Total 1000 ml 1000 ml 360 ml Output Total 305 ml Balance 695 ml 1000 ml 360 ml NIMESH LANIER III DO Oct 14, 2018 12:48
--- NOTE | 2018-10-14 13:53 | NUR ---
Discharge Note: TAYLOR SARAVIA EVANT Discharge instructions and discharge home medications reviewed with Patient and a copy given. All questions have been answered and understanding verbalized. The following instructions and handouts were given: ABT&R, post op care Discontinued lines and drains: peripheral line. Patient discharged to Home or Self Care with Spouse via Wheelchair
--- NOTE | 2018-10-17 18:05 | PATHOLOGY ---
[facility] Accession Number: [id number] . 01 Material submitted: . PART A: mediastinum - MEDIASTINAL MASS - FS PART B: thyroid gland - TOTAL THYROID PART C: mediastinum - MEDIASTINAL MASS . 01 Clinical history: . Thyroid mass . 02 Frozen section diagnosis: . INTRAOPERATIVE CONSULTATION WITH FROZEN SECTION (Jed Bond MD) . Mediastinal mass, biopsy: - Thyroid tissue - favor nodular goiter. . The results are reported to Dr. Evans in the operating room. . (KARLEEM:viji; 10/13/2018) . . GROSS PATHOLOGY The specimen is received fresh for intraoperative consultation and is designated "mediastinal mass". The specimen consists of an ovoid-shaped segment of pink-reynaga to pale brown soft tissue measuring up to 1.7 x 1.2 x 0.8 cm in greatest dimension. There is focal black cautery change. The specimen is bisected. The cut surface is pink-reynaga and nodular with focal chalky white areas noted. This is submitted for frozen section as FSA1. The tissue remaining from frozen section is submitted for permanent sections as A1. (JPM:viji; 10/12/2018) . Frozen section performed at [facility], [address] [place] [address], [place] [address]. NEGRITA/CINDY . 02 Diagnosis: A. Mediastinal mass, biopsy: - Thyroid tissue consistent with nodular goiter. . B. Thyroid gland, total thyroidectomy: - Multinodular (adenomatous) goiter. - No parathyroid glands identified. . C. Mediastinal mass, excision: - Multinodular (adenomatous) goiter. LBQ/10/17/2018 . 02 Comment: Sections of the mediastinal mass reveal thyroid tissue showing features of multinodular (adenomatous) goiter. Sections of the total thyroidectomy also show multinodular (adenomatous) goiter. There is no evidence of malignancy. The case is also examined by Dr. Contreras, who concurs with the diagnosis. (JPM/db; 10/17/2018) . 02 Electronically signed: . Jed Bond MD, Pathologist NPI- [id number] . 01 Gross description: . Please see frozen section gross description dictated by the pathologist located under the Frozen Section part of this report. . B. The specimen is received in formalin, labeled "Rebecca Wright, total thyroid, long stitch right superior pole, short stitch left inferior pole", is an oriented total thyroidectomy specimen weighing 25 g and measuring: Right lobe = 5.0 x 2.5 x 2.0 cm, isthmus (right to left) = 2.0 x 2.5 cm and left lobe = 5.2 x 1.5 x 0.7 cm with a long suture designated as right superior pole and a short suture left inferior pole. The lobes are asymmetrical, nodular with two disruptions on the posterior aspect measuring 1.5 x 0.6 cm at the junction of right lobe and isthmus and 1.5 x 1.0 cm at the left superior pole. The remaining external surface is intact. The specimen is inked as follows: Right anterior = blue, anterior isthmus = yellow, left anterior = green, the entire posterior = black and the posterior defect orange. . There are multiple well-circumscribed colloidal nodules ranging from 0.4 to 2.0 cm in diameter throughout the gland. The largest nodule is in the isthmus. The nodules do not extend to the external surface of the thyroid. The uninvolved thyroid parenchyma is beefy-red. . Representatively submitted as follows: B1. Right lobe, superior pole, perpendicular sectioned. B2. Right lobe, superior aspect. B3. Right lobe, at the isthmus. B4. Right lobe, inferior aspect. B5. Right lobe, inferior pole, perpendicular sectioned. B6-B7. Isthmus. B8. Left lobe, superior pole, perpendicular sectioned. B9. Left lobe, superior and mid aspect. B10. Left lobe, inferior pole, perpendicular sectioned. . C. The specimen is received in formalin, labeled " Rebecca Wright, mediastinal mass", is a focally disrupted, reynaga-pink, rubbery, cystic mass measuring 5.2 x 5.0 x 2.8 cm with attached reynaga-brown, lobulated soft tissue measuring 3.2 x 1.8 x 1.0 cm and collectively weighing 50 g. The external surface has a disrupted area measuring 3.0 x 2.2 cm. The remaining external surface is nodular. The specimen is inked as follows: Mass = black, disruption = orange and fibrous tissue = blue. The mass has multiple reynaga-yellow, focally cystic, calcified, and hemorrhagic nodules. [facility] tissue is submitted in C1-C6. (C6= external defect and after decalcification) (SWS; 10/14/2018) [facility] . 02 Pathologist provided ICD-10: C73, E04.9 . 02 CPT . 698248, 016109, 921229, 008460, 799219, 364529 Specimen Comment: A courtesy copy of this report has been sent to Specimen Comment: [phone], . Specimen Comment: Report sent to / DR KIRK Performed at: 01 [facility] [address], [place] [id number] MD Heraclio Rm MD Phone: [phone] Performed at: 02 [facility] [address] [place], [place] [id number] MD Jed Bond MD Phone: [phone]
--- NOTE | 2018-10-18 09:27 | PDOC3 ---
Discharge Summary Visit Information Date of Admission: Oct 13, 2018 Date of Discharge: Oct 14, 2018 Admitting Diagnosis: Multinodular goiter Final Diagnosis Problems Medical Problems: (1) Dysphagia Status: Acute (2) Multinodular goiter Status: Acute Brief Hospital Course Allergies Allergies Coded Allergies Type Severity Reaction Last Updated Verified atorvastatin Allergy Severe throat swells 10/13/18 Yes ciprofloxacin Allergy Severe "THROAT CLOSES UP" ANAPHYLAXIS 10/13/18 Yes hydroxyzine Allergy Severe DIZZINESS, "I FEEL LIKE IM DRUNK" 10/13/18 Yes raspberry Allergy Severe CHOKING SENSATION IN THROAT 10/13/18 Yes tramadol Allergy Severe VOMITING 10/13/18 Yes amoxicillin Allergy Intermediate 10/13/18 Yes aspirin Allergy Intermediate 10/13/18 Yes cephalexin Allergy Intermediate 10/13/18 Yes codeine Allergy Intermediate 10/13/18 Yes ibuprofen Allergy Intermediate 10/13/18 Yes morphine Allergy Intermediate 10/13/18 Yes simvastatin Allergy Intermediate 10/13/18 Yes pregabalin Allergy Mild vomiting 10/13/18 Yes Brief Hospital Course Ms. Wright is a 58 old female who underwent total thyroidectomy. Postoperatively tolerating diet, ambulating, and pain managed. Ready for discharge home. Follow up in clinic Discharge Information Condition at Discharge: Stable Follow Up: Weeks (2) Disposition/Orders: D/C to Home Scheduled Amitriptyline Hcl (Amitriptyline Hcl) 100 Mg Tablet, 1 TAB PO QHS for neuropathy, (Reported) Entered as Reported by: INNA SETHI on 06/07/182234 Last Action: Converted on 10/13/181818 by SAUNDRA GE RN Gabapentin (Gabapentin ) 300 Mg Capsule, 600 MG PO HS for NEUROGENIC PAIN, (Reported) Entered as Reported by: INNA SETHI on 06/07/182234 Last Taken: Unknown Dose on 10/12/18 Last Action: Continued on 10/13/181818 by SAUNDRA GE RN Insulin Aspart (Novolog Flexpen) 100 Unit/1 Ml Insuln.pen, 1 UNIT SQ TIDAC for diabetes, (Reported) Entered as Reported by: RHETT CASTELLON on 09/23/18 1408 Last Taken: Unknown Dose on 10/12/18 Last Action: Last Taken Edited on 10/13/18826 by STEVEN GUTHRIE Insulin Glargine,Hum.rec.anlog (Basaglar Kwikpen U-100) 100 Unit/1 Ml Insuln.pen, 30 UNIT SQ DAILY08 for Diabetes, (Reported) Entered as Reported by: LEVI COLLIER on 09/12/182158 Last Taken: Unknown Dose on 10/12/18 Last Action: Continued on 10/13/181818 by SAUNDRA GE RN Levothyroxine Sodium (Synthroid) 100 Mcg Tablet, 100 MCG PO DAILY06 for s/p thyroidectomy , #30 Ref 0 Prescribed by: Kasey Cao on 10/14/18 0958 Lovastatin (Lovastatin) 10 Mg Tablet, 10 MG PO HS for cholsterol, (Reported) Entered as Reported by: Lucho Loya on 08/23/182143 Last Taken: Unknown Dose on 10/12/18 Last Action: Converted on 10/13/181818 by SAUNDRA GE RN Methimazole (Methimazole) 5 Mg Tablet, 5 MG PO DAILY08 for hyperthyroid, (Reported) Entered as Reported by: INNA SETHI on 06/07/185 Last Taken: Unknown Dose on 10/12/18 Last Action: Last Taken Edited on 10/13/18 08 by STEVEN GUTHRIE Midodrine Hcl (Midodrine Hcl) 10 Mg Tablet, 10 MG PO TID for BP, (Reported) Entered as Reported by: RHETT CASTELLON on 09/23/18 1320 Last Taken: Unknown Dose on 10/12/18 Last Action: Converted on 10/13/181818 by SAUNDRA GE RN [Acetaminophen Pm] , 1 TAB PO HS for insomnia , (Reported) Entered as Reported by: VIKKI FATIMA on 10/12/18 0901 Last Taken: Unknown Dose on 10/11/18 Last Action: Edited on 10/13/18 1443 by SAUNDRA GE RN Scheduled PRN Hydrocodone Bit/Acetaminophen (Hydrocodone-Apap 5-325 ) 1 Tab Tablet, 2 TAB PO PRN Q4HRS PRN for MODERATE PAIN, #30 Ref 0 Prescribed by: Kasey Cao on 10/14/18 0958 Discontinued Medications Hydrocodone Bit/Acetaminophen (Hydrocodone-Apap 5-325 ) 1 Tab Tablet, 1 TAB PO PRN Q6HRS PRN for PAIN, Ref 0 (Reported) Entered as Reported by: VIKKI FATIMA on 10/12/18900 Last Action: Discontinued on 10/12/18935 by KASEY FERRELL APRN Oct 18, 2018 09:27
== END 2018-10-14 08:50 | disposition home or self-care (01) ==
LOC: SURG 08:01 → 4 NORTH 12:24
PROVIDERS: ADMIT Surgery; ATTEND Surgery
DX: E04.2 Nontoxic multinodular goiter (principal); Z83.3 Family history of diabetes mellitus; R13.10 Dysphagia, unspecified; R55 Syncope and collapse; E78.5 Hyperlipidemia, unspecified; J44.9 Chronic obstructive pulmonary disease, unspecified; Z86.73 Personal history of transient ischemic attack (TIA), and cerebral infarction without residual deficits; M19.90 Unspecified osteoarthritis, unspecified site; E11.42 Type 2 diabetes mellitus with diabetic polyneuropathy; E05.90 Thyrotoxicosis, unspecified without thyrotoxic crisis or storm
CPT/HCPCS: 36415; 60240; 82962; 85025; 88305; 88307; 88331; 96372; 96374; A7015; G0378; G0379; J1100; J1815; J2001; J2250; J2370; J2405; J2704; J3010; J3490; J1956

== ENCOUNTER 2018-10-17 14:54 | Emergency (ER) | payer OTHER ==
[~2018-10-17] VITALS: Ht 175.3 cm; Wt 67.1 kg
[~2018-10-17 14:54] MED LIST changes: -BUPIVACAINE-EPI 0.25%-1:200000 MPF 30 ML VIAL. ONE; -CLINDAMYCIN 900MG PREMIX 50 ML IV PRN; -INSULIN LISPRO 100 UNIT/ML 3ML VIAL for OP,RR ONLY. SQ PRN; -IV RINGERS,LACTATED 1000ML 1,000 ML IV SCH; +LEVO100T PO; -LIDOCAINE 1% PF 2 ML VIAL. ID PRN; -ONDANSETRON PF 4 MG/2 ML VIAL. IV PRN; -PROCHLORPERAZINE 10 MG/2 ML VIAL. IV PRN; -fentaNYL PF VIAL 100 MCG/2 ML VIAL IV PRN
[2018-10-17 15:18] VITALS: BP 146/62
[2018-10-17 15:29] LABS: BASO # 0.1 x10^3/uL (0.0-0.2); BASO % 1 % (0-3); EOS # 0.5 x10^3/uL (0.0-0.7); EOS % 7 % (0-3); HEMATOCRIT 32.1 % (36.0-47.0); HEMOGLOBIN 10.6 g/dL (12.0-15.5); LYMPH % 27 % (24-48); MEAN CORPUSCULAR HEMOGLOBIN 27 pg (25-35); MEAN CORPUSCULAR HGB CONC 33 g/dL (31-37); MEAN CORPUSCULAR VOLUME 82 fL (79-100); MONO # 0.6 x10^3/uL (0.0-1.1); MONO % 8 % (0-9); NEUT # 4.2 x10^3uL (1.8-7.7); NEUT % 57 % (31-73); PLATELET COUNT 280 x10^3/uL (140-400); RED BLOOD COUNT 3.92 x10^6/uL (3.50-5.40); RED CELL DISTRIBUTION WIDTH 13.6 % (11.5-14.5); WHITE BLOOD COUNT 7.3 x10^3/uL (4.0-11.0)
[2018-10-17 15:46] LABS: CALCIUM 9.2 mg/dL (8.5-10.1); CREATININE 0.7 mg/dL (0.6-1.0); GFR 86.6; POTASSIUM 4.2 mmol/L (3.5-5.1)
[2018-10-17 15:52] LABS: ALBUMIN 2.8 g/dL (3.4-5.0); ALBUMIN/GLOBULIN RATIO 0.6 (1.0-1.7); TOTAL BILIRUBIN 0.3 mg/dL (0.2-1.0); TOTAL PROTEIN 7.3 g/dL (6.4-8.2)
--- NOTE | 2018-10-17 16:12 | PHYS DOC ---
Past Medical History Past Medical History: Diabetes-Type I, High Cholesterol, Hypertension, Hypothyroid, Stroke, Other Additional Past Medical Histor: NEUROPATHY Past Surgical History: Other Additional Past Surgical Histo: L BREAST L FOOT R KNEE Alcohol Use: None Drug Use: None Adult General Chief Complaint Chief Complaint: HYPERTENSION HPI HPI Patient is a 58-year-old female whose been seen in our emergency department multiple times. She presents today secondary to some near syncopal episodes. She is also very concerned about her blood pressure. She's recently had a thyroid surgery and is on thyroid supplement. She also states that she has been having these blackout spells for more than a year. She's had extensive workup around the spells. She's also recently had a cardiac workup.[] Review of Systems Review of Systems Constitutional: Denies fever or chills [] Eyes: Denies change in visual acuity, redness, or eye pain [] HENT: Denies nasal congestion or sore throat [] Respiratory: Denies cough or shortness of breath [] Cardiovascular: No additional information not addressed in HPI [] GI: Denies abdominal pain, nausea, vomiting, bloody stools or diarrhea [] : Denies dysuria or hematuria [] Musculoskeletal: Denies back pain or joint pain [] Integument: Healing surgical wound anterior neck[] Neurologic: Per history of present illness[] Endocrine: Denies polyuria or polydipsia [] All other systems were reviewed and found to be within normal limits, except as documented in this note. Allergies Allergies Allergies Coded Allergies Type Severity Reaction Last Updated Verified atorvastatin Allergy Severe throat swells 10/13/18 Yes ciprofloxacin Allergy Severe "THROAT CLOSES UP" ANAPHYLAXIS 10/13/18 Yes hydroxyzine Allergy Severe DIZZINESS, "I FEEL LIKE IM DRUNK" 10/13/18 Yes raspberry Allergy Severe CHOKING SENSATION IN THROAT 10/13/18 Yes tramadol Allergy Severe VOMITING 10/13/18 Yes amoxicillin Allergy Intermediate 10/13/18 Yes aspirin Allergy Intermediate 10/13/18 Yes cephalexin Allergy Intermediate 10/13/18 Yes codeine Allergy Intermediate 10/13/18 Yes ibuprofen Allergy Intermediate 10/13/18 Yes morphine Allergy Intermediate 10/13/18 Yes simvastatin Allergy Intermediate 10/13/18 Yes pregabalin Allergy Mild vomiting 10/13/18 Yes Physical Exam Physical Exam Constitutional: Well developed, well nourished, no acute distress, non-toxic appearance, disheveled. [] HENT: Normocephalic, atraumatic, bilateral external ears normal, oropharynx moist, no oral exudates, nose normal. [] Eyes: PERRLA, EOMI, conjunctiva normal, no discharge. [] Neck: Normal range of motion, no tenderness, supple, no stridor. [] Cardiovascular:Heart rate regular rhythm, no murmur [] Lungs & Thorax: Bilateral breath sounds clear to auscultation [] Abdomen: Bowel sounds normal, soft, no tenderness, no masses, no pulsatile masses. [] Skin: Healing surgical wound anterior neck. [] Back: No tenderness, no CVA tenderness. [] Extremities: No tenderness, no cyanosis, no clubbing, ROM intact, no edema. [] Neurologic: Alert and oriented X 3, normal motor function, normal sensory function, no focal deficits noted. [] Psychologic: Very flat affect[] Current Patient Data Vital Signs Vital Signs Date Time Temp Pulse Resp B/P (MAP) Pulse Ox O2 Delivery O2 Flow Rate FiO2 10/17/18 15:18 72 100 10/17/18 15:04 97.6 20 185/92 (123) Room Air 97.6 Lab Values Laboratory Tests Test 10/17/18 15:20 White Blood Count 7.3 x10^3/uL (4.0-11.0) Red Blood Count 3.92 x10^6/uL (3.50-5.40) Hemoglobin 10.6 g/dL (12.0-15.5) L Hematocrit 32.1 % (36.0-47.0) L Mean Corpuscular Volume 82 fL (79-100) Mean Corpuscular Hemoglobin 27 pg (25-35) Mean Corpuscular Hemoglobin Concent 33 g/dL (31-37) Red Cell Distribution Width 13.6 % (11.5-14.5) Platelet Count 280 x10^3/uL (140-400) Neutrophils (%) (Auto) 57 % (31-73) Lymphocytes (%) (Auto) 27 % (24-48) Monocytes (%) (Auto) 8 % (0-9) Eosinophils (%) (Auto) 7 % (0-3) H Basophils (%) (Auto) 1 % (0-3) Neutrophils # (Auto) 4.2 x10^3uL (1.8-7.7) Lymphocytes # (Auto) 2.0 x10^3/uL (1.0-4.8) Monocytes # (Auto) 0.6 x10^3/uL (0.0-1.1) Eosinophils # (Auto) 0.5 x10^3/uL (0.0-0.7) Basophils # (Auto) 0.1 x10^3/uL (0.0-0.2) Sodium Level 137 mmol/L (136-145) Potassium Level 4.2 mmol/L (3.5-5.1) Chloride Level 100 mmol/L (98-107) Carbon Dioxide Level 29 mmol/L (21-32) Anion Gap 8 (6-14) Blood Urea Nitrogen 21 mg/dL (7-20) H Creatinine 0.7 mg/dL (0.6-1.0) Estimated GFR (Cockcroft-Gault) 86.6 BUN/Creatinine Ratio 30 (6-20) H Glucose Level 212 mg/dL (70-99) H Calcium Level 9.2 mg/dL (8.5-10.1) Total Bilirubin 0.3 mg/dL (0.2-1.0) Aspartate Amino Transferase (AST) 22 U/L (15-37) Alanine Aminotransferase (ALT) 16 U/L (14-59) Alkaline Phosphatase 104 U/L (46-116) Total Protein 7.3 g/dL (6.4-8.2) Albumin 2.8 g/dL (3.4-5.0) L Albumin/Globulin Ratio 0.6 (1.0-1.7) L Laboratory Tests 10/17/18 15:20 Laboratory Tests 10/17/18 15:20 EKG EKG [] Interpretation Time: EKG: Normal sinus rhythm rate of [address]-T changes Radiology/Procedures Radiology/Procedures [] Course & Med Decision Making Course & Med Decision Making Pertinent Labs and Imaging studies reviewed. (See chart for details) [ED course: Evaluation reveals a 58-year-old female who appears disheveled, depressed but not acutely ill. Her blood pressure improved through her stay here. Her EKG was unremarkable. Her laboratory studies were all normal. Think she is safe for discharge home at this time.] Jennifer Disclaimer Jennifer Disclaimer This electronic medical record was generated, in whole or in part, using a voice recognition dictation system. Departure Departure Impression: Primary Impression: Hypertension Additional Impression: Syncope, near Disposition: 01 HOME, SELF-CARE Condition: STABLE Referrals: ANN KIRK (PCP) Patient Instructions: Syncope Additional Instructions: Follow-through primary care physician this week for recheck. Return to the emergency department with any new or concerning symptoms Problem Qualifiers Primary Impression: Hypertension Hypertension type: essential hypertension Qualified Codes: I10 - Essential (primary) hypertension EDWARD CROSS DO Oct 17, 2018 16:11
--- NOTE | 2018-10-17 18:06 | EKG ---
[facility] [address] [place] [address] Test Date: 2018-10-17 Test Time: 15:07:57 Pat Name: TAYLOR SARAVIA Department: Room: Gender: F Dopster: : 1960 Requested By: EDWARD CROSS Order Number: [id number] Reading MD: Measurements Intervals Catherine Rate: 90 P: -13 [place]: 136 QRS: -27 QRSD: 74 T: 34 QT: 362 QTc: 446 Interpretive Statements SINUS RHYTHM LEFTWARD AXIS QRS(T) CONTOUR ABNORMALITY CONSISTENT WITH ANTEROSEPTAL INFARCT AGE UNDETERMINED ABNORMAL ECG No previous ECG available for comparison
== END 2018-10-17 16:20 | disposition home or self-care (01) ==
LOC: ER 14:54
DX: R55 Syncope and collapse (principal); I10 Essential (primary) hypertension; E10.40 Type 1 diabetes mellitus with diabetic neuropathy, unspecified; E78.00 Pure hypercholesterolemia, unspecified; E03.9 Hypothyroidism, unspecified; Z86.73 Personal history of transient ischemic attack (TIA), and cerebral infarction without residual deficits; Z88.1 Allergy status to other antibiotic agents; Z88.5 Allergy status to narcotic agent; Z88.8 Allergy status to other drugs, medicaments and biological substances; Z88.6 Allergy status to analgesic agent
CPT/HCPCS: 36415; 80053; 85025; 93005; 99285-25

== ENCOUNTER 2018-11-09 19:20 | Emergency (ER) | payer OTHER ==
[~2018-11-09] VITALS: Ht 175.3 cm; Wt 62.6 kg
[2018-11-09 19:48] LABS: BASO % 0 % (0-3); EOS # 0.4 x10^3/uL (0.0-0.7); EOS % 5 % (0-3); HEMATOCRIT 36.9 % (36.0-47.0); HEMOGLOBIN 12.4 g/dL (12.0-15.5); LYMPH # 2.6 x10^3/uL (1.0-4.8); LYMPH % 34 % (24-48); MEAN CORPUSCULAR HEMOGLOBIN 27 pg (25-35); MEAN CORPUSCULAR HGB CONC 34 g/dL (31-37); MEAN CORPUSCULAR VOLUME 81 fL (79-100); MONO # 0.5 x10^3/uL (0.0-1.1); MONO % 6 % (0-9); NEUT # 4.1 x10^3/uL (1.8-7.7); NEUT % 55 % (31-73); PLATELET COUNT 316 x10^3/uL (140-400); RED BLOOD COUNT 4.53 x10^6/uL (3.50-5.40); RED CELL DISTRIBUTION WIDTH 13.9 % (11.5-14.5); WHITE BLOOD COUNT 7.5 x10^3/uL (4.0-11.0)
--- NOTE | 2018-11-09 19:51 | PHYS DOC ---
Past Medical History Past Medical History: Diabetes-Type I, High Cholesterol, Hypothyroid, Hypotension, Stroke, Other Additional Past Medical Histor: NEUROPATHY Past Surgical History: Other Additional Past Surgical Histo: L BREAST L FOOT R KNEE Alcohol Use: None Drug Use: None Adult General Chief Complaint Chief Complaint: CHEST PAIN HPI HPI Patient is a 58 year old female who presents with chest pain and syncopal episodes. Patient states that she was diagnosed with pleurisy and has been on 2 rounds of naproxen and ran out of it 3 days ago. She states that she is now h aving bilateral rib pain/chest pain. States that this is the same pain she was having when she was diagnosed with pleurisy. States that she's had 3 different syncopal episodes today and has had frequent and multiple episodes over the last three months. Rates her pain as 9 out of 10 in severity, and states throbbing and sharp. Review of Systems Review of Systems Constitutional: Denies fever or chills [] Eyes: Denies change in visual acuity, redness, or eye pain [] HENT: Denies nasal congestion or sore throat [] Respiratory: Denies cough or shortness of breath [] Cardiovascular: Reports bilateral chest pain under the ribs. GI: Denies abdominal pain, nausea, vomiting, bloody stools or diarrhea [] : Denies dysuria or hematuria [] Musculoskeletal: Denies back pain or joint pain [] Integument: Denies rash or skin lesions [] Neurologic: Denies headache, focal weakness or sensory changes [] Endocrine: Denies polyuria or polydipsia [] Complete systems were reviewed and found to be within normal limits, except as documented in this note. Current Medications Current Medications Current Medications Medications (Trade) Dose Ordered Sig/[place] Start Time Stop Time Status Last Admin Dose Admin Acetaminophen (Tylenol) 1,000 mg 1X ONCE 11/09/18 21:30 11/09/18 21:31 DC 11/09/18 20:40 1,000 MG Diphenhydramine HCl (Benadryl) 25 mg 1X ONCE 11/09/18 22:00 11/09/18 22:01 DC 11/09/18 21:43 25 MG Info (CONTRAST GIVEN -- Rx MONITORING) 1 each PRN DAILY PRN 11/09/18 21:00 11/11/18 20:59 Iohexol (Omnipaque 350 Mg/ml) 100 ml 1X ONCE 11/09/18 21:30 11/09/18 21:31 DC 11/09/18 21:22 100 ML Sodium Chloride 1,000 ml @ 1,000 mls/hr 1X ONCE 11/09/18 21:00 11/09/18 21:59 DC 11/09/18 20:54 1,000 MLS/HR Allergies Allergies Allergies Coded Allergies Type Severity Reaction Last Updated Verified atorvastatin Allergy Severe throat swells 10/13/18 Yes ciprofloxacin Allergy Severe "THROAT CLOSES UP" ANAPHYLAXIS 10/13/18 Yes hydroxyzine Allergy Severe DIZZINESS, "I FEEL LIKE IM DRUNK" 10/13/18 Yes raspberry Allergy Severe CHOKING SENSATION IN THROAT 10/13/18 Yes tramadol Allergy Severe VOMITING 10/13/18 Yes amoxicillin Allergy Intermediate 10/13/18 Yes aspirin Allergy Intermediate 10/13/18 Yes cephalexin Allergy Intermediate 10/13/18 Yes codeine Allergy Intermediate 10/13/18 Yes ibuprofen Allergy Intermediate 10/13/18 Yes morphine Allergy Intermediate 10/13/18 Yes simvastatin Allergy Intermediate 10/13/18 Yes sucralose Allergy Intermediate 11/09/18 Yes pregabalin Allergy Mild vomiting 10/13/18 Yes Physical Exam Physical Exam Constitutional: Well developed, well nourished, no acute distress, non-toxic appearance. [] HENT: Normocephalic, atraumatic, bilateral external ears normal, oropharynx moist, no oral exudates, nose normal. [] Eyes: PERRLA, EOMI, conjunctiva normal, no discharge. [] Neck: Normal range of motion, no tenderness, supple, no stridor. [] Cardiovascular:Heart rate regular rhythm, no murmur [] Lungs & Thorax: Bilateral breath sounds clear to auscultation [] Skin: Warm, dry, no erythema, no rash. [] Back: No tenderness, no CVA tenderness. [] Extremities: No tenderness, no cyanosis, no clubbing, ROM intact, no edema. [] Neurologic: Alert and oriented X 3, normal motor function, normal sensory function, no focal deficits noted. [] Psychologic: Affect normal, judgement normal, mood normal. [] Current Patient Data Vital Signs Vital Signs Date Time Temp Pulse Resp B/P (MAP) Pulse Ox O2 Delivery O2 Flow Rate FiO2 11/09/18 22:45 82 20 92/70 (77) 100 Room Air 11/09/18 19:34 98.7 98.7 Lab Values Laboratory Tests Test 11/09/18 19:40 11/09/18 19:47 White Blood Count 7.5 x10^3/uL (4.0-11.0) Red Blood Count 4.53 x10^6/uL (3.50-5.40) Hemoglobin 12.4 g/dL (12.0-15.5) Hematocrit 36.9 % (36.0-47.0) Mean Corpuscular Volume 81 fL (79-100) Mean Corpuscular Hemoglobin 27 pg (25-35) Mean Corpuscular Hemoglobin Concent 34 g/dL (31-37) Red Cell Distribution Width 13.9 % (11.5-14.5) Platelet Count 316 x10^3/uL (140-400) Neutrophils (%) (Auto) 55 % (31-73) Lymphocytes (%) (Auto) 34 % (24-48) Monocytes (%) (Auto) 6 % (0-9) Eosinophils (%) (Auto) 5 % (0-3) H Basophils (%) (Auto) 0 % (0-3) Neutrophils # (Auto) 4.1 x10^3/uL (1.8-7.7) Lymphocytes # (Auto) 2.6 x10^3/uL (1.0-4.8) Monocytes # (Auto) 0.5 x10^3/uL (0.0-1.1) Eosinophils # (Auto) 0.4 x10^3/uL (0.0-0.7) Basophils # (Auto) 0.0 x10^3/uL (0.0-0.2) D-Dimer (Selene) 0.82 ug/mlFEU (0.00-0.50) H Sodium Level 139 mmol/L (136-145) Potassium Level 5.1 mmol/L (3.5-5.1) Chloride Level 100 mmol/L (98-107) Carbon Dioxide Level 27 mmol/L (21-32) Anion Gap 12 (6-14) Blood Urea Nitrogen 38 mg/dL (7-20) H Creatinine 0.9 mg/dL (0.6-1.0) Estimated GFR (Cockcroft-Gault) 64.8 BUN/Creatinine Ratio 42 (6-20) H Glucose Level 244 mg/dL (70-99) H Calcium Level 10.1 mg/dL (8.5-10.1) Total Bilirubin 0.3 mg/dL (0.2-1.0) Aspartate Amino Transferase (AST) 21 U/L (15-37) Alanine Aminotransferase (ALT) 18 U/L (14-59) Alkaline Phosphatase 102 U/L (46-116) Troponin I Quantitative < 0.017 ng/mL (0.000-0.055) Total Protein 7.9 g/dL (6.4-8.2) Albumin 3.6 g/dL (3.4-5.0) Albumin/Globulin Ratio 0.8 (1.0-1.7) L Thyroid Stimulating Hormone (TSH) 8.298 uIU/mL (0.358-3.74) H Urine Collection Type Unknown Urine Color Yellow Urine Clarity Cloudy Urine pH 6.0 Urine Specific [place] 1.020 Urine Protein 100 mg/dL (NEG-TRACE) Urine Glucose (UA) >=1000 mg/dL (NEG) Urine Ketones (Stick) Negative mg/dL (NEG) Urine Blood Moderate (NEG) Urine Nitrite Positive (NEG) Urine Bilirubin Negative (NEG) Urine Urobilinogen Dipstick 0.2 mg/dL (0.2 mg/dL) Urine Leukocyte Esterase Large (NEG) Urine RBC 1-2 /HPF (0-2) Urine WBC >40 /HPF (0-4) Urine Bacteria Many /HPF (0-FEW) Laboratory Tests 11/09/18 19:40 Laboratory Tests 11/09/18 19:40 EKG EKG Interpreted by Dr. Edmond, EKG shows sinus with rate of 87. No STEMI. [] Radiology/Procedures Radiology/Procedures [][facility] [address] [place], [place] [id number] IMAGING REPORT Signed PATIENT: TAYLOR SARAVIA ACCOUNT: [id number] : 1960 LOCATION: ER AGE: 58 SEX: F EXAM STATUS: REG ER ORD. PHYSICIAN: FRANTZ DAMON APRN REASON: elevated d-dimer, syncope, shortness of breath PROCEDURE: CT ANGIOGRAPHY CHEST CTA Chest with contrast: Clinical History: Shortness of breath. Axial helical images of the chest were obtained after the administration of 100 cc of IV Omni 350 and timed appropriately for a pulmonary arterial study. Conventional axial reconstruction was performed in addition to coronal, sagittal and bilateral oblique MIP (maximum intensity projection). This study was ordered to detect possible pulmonary embolism. There are no filling defects to suggest pulmonary embolism. The lungs and pleural margins are clear. There is no mediastinal or hilar lymphadenopathy. The thoracic aorta appears normal. Impression: 1. No evidence of pulmonary embolism. 2. No significant findings. PQRS Compliance Statement: One or more of the following individualized dose reduction techniques were utilized for this examination: 1. Automated exposure control 2. Adjustment of the mA and/or kV according to patient size 3. Use of iterative reconstruction technique Electronically signed by: Diogo Renee III, MD (11/09/2018 10:23 PM) [facility] DICTATED and SIGNED BY: DIOGO RENEE III, MD DATE: 11/09/182222 Course & Med Decision Making Course & Med Decision Making Pertinent Labs and Imaging studies reviewed. (See chart for details) Will get labs, ekg, chest x-ray. Urine shows UTI, D-dimer is elevated, will get CT of Chest. Blood sugar was 244, TSH is 8.298. Will recommend for patient to follow up with primary care doctor to have Levothyroxine increased. \\ Will put on Macrobid at home for UTI as patient is allergic to PCN, and Cephalosporins. CT chest was negative. Will d/c home to follow up with primary care doctor. Pain is likely from her pleurisy. Dragon Disclaimer Dragon Disclaimer This electronic medical record was generated, in whole or in part, using a voice recognition dictation system. Departure Departure Impression: Primary Impression: Urinary tract infection Additional Impression: Hypothyroidism Disposition: 01 HOME, SELF-CARE Condition: STABLE Referrals: ANN KIRK (PCP) Patient Instructions: Urinary Tract Infection Additional Instructions: Thank you for visiting [facility]. We appreciate you trusting us with your care. If any additional problems come up don't hesitate to return to visit us. Please follow up with your primary care provider so they can plan additional care if needed and know about the problem that you had. If symptoms worsen come back to the Emergency Department. Any concerning symptoms that start such as chest pain, shortness of air, weakness or numbness on one side of the body, running high fevers or any other concerning symptoms return to the ER. You have been prescribed an antibiotic today to help fight your infection. Please take all of the antibiotic as directed. If after 48 hours the infection is not improving, please return for more care. If the infection worsens, return to ER for additional care. Scripts Nitrofurantoin Macrocrystal (NITROFURANTOIN) 100 Mg Capsule 1 CAP PO BID for 5 Days, #10 CAP Prov: FRANTZ DAMON APRN 11/09/18 Problem Qualifiers Primary Impression: Urinary tract infection Urinary tract infection type: acute cystitis Hematuria presence: without hematuria Qualified Codes: N30.00 - Acute cystitis without hematuria Additional Impression: Hypothyroidism Hypothyroidism type: unspecified Qualified Codes: E03.9 - Hypothyroidism, unspecified FRANTZ DAMON APRN Nov 09, 2018 19:50
[2018-11-09 20:00] LABS: BILIRUBIN,URINE NEGATIVE (NEG); CLARITY,URINE CLOUDY; COLOR,URINE YELLOW; NITRITE,URINE POSITIVE (NEG); PROTEIN,URINE 100 mg/dL (NEG-TRACE); UROBILINOGEN,URINE 0.2 mg/dL (0.2 mg/dL)
[2018-11-09 20:04] LABS: CALCIUM 10.1 mg/dL (8.5-10.1); CREATININE 0.9 mg/dL (0.6-1.0); GFR 64.8; POTASSIUM 5.1 mmol/L (3.5-5.1)
[2018-11-09 20:10] LABS: ALBUMIN 3.6 g/dL (3.4-5.0); ALBUMIN/GLOBULIN RATIO 0.8 (1.0-1.7); TOTAL BILIRUBIN 0.3 mg/dL (0.2-1.0); TOTAL PROTEIN 7.9 g/dL (6.4-8.2)
[2018-11-09 20:14] LABS: BACTERIA,URINE MANY /HPF (0-FEW); WBC,URINE >40 /HPF (0-4)
[2018-11-09] MEDS ORDERED: CONTRAST GIVEN. MC PRN (21:00)
[2018-11-09] MEDS ORDERED: IV NORMAL SALINE 1000ML BAG 1,000 ML IV ONE (21:00)
[2018-11-09] MEDS ORDERED: IOHEXOL 350 MG/ML 100 ML VIAL. IV ONE (21:30)
[2018-11-09] MEDS ORDERED: ACETAMINOPHEN 500 MG TABLET PO ONE (21:30)
[2018-11-09] MEDS ORDERED: diphenhydrAMINE 50 MG/ML VIAL IVP ONE (22:00)
--- NOTE | 2018-11-09 22:26 | RAD ---
CTA Chest with contrast: Clinical History: Shortness of breath. Axial helical images of the chest were obtained after the administration of 100 cc of IV Omni 350 and timed appropriately for a pulmonary arterial study. Conventional axial reconstruction was performed in addition to coronal, sagittal and bilateral oblique MIP (maximum intensity projection). This study was ordered to detect possible pulmonary embolism. There are no filling defects to suggest pulmonary embolism. The lungs and pleural margins are clear. There is no mediastinal or hilar lymphadenopathy. The thoracic aorta appears normal. Impression: 1. No evidence of pulmonary embolism. 2. No significant findings. PQRS Compliance Statement: One or more of the following individualized dose reduction techniques were utilized for this examination: 1. Automated exposure control 2. Adjustment of the mA and/or kV according to patient size 3. Use of iterative reconstruction technique Electronically signed by: Matt Beltre III, MD (11/09/2018 10:23 PM) [facility]
[2018-11-09 22:59] VITALS: BP 133/77
[2018-11-09] MEDS ORDERED: NITR100C PO (23:16)
--- NOTE | 2018-11-10 02:32 | RAD ---
PA and lateral chest radiographs 11/09/2018 CLINICAL HISTORY: Syncope. PA and lateral digital radiographs of the chest were obtained. Comparison study is dated 09/23/2018. The cardiac silhouette is normal in size. The thoracic aorta is mildly tortuous. Atherosclerotic calcification of the thoracic aorta is seen. No acute pulmonary infiltrate is noted. No pneumothorax or pleural effusion is seen. Degenerative changes are seen involving the thoracic spine. IMPRESSION: No acute abnormality is seen. Electronically signed by: Wale Tyler MD (11/10/2018 2:29 AM) [facility]
--- NOTE | 2018-11-10 06:31 | EKG ---
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
== END 2018-11-09 23:35 | disposition home or self-care (01) ==
LOC: ER 19:20
DX: N30.00 Acute cystitis without hematuria (principal); E03.9 Hypothyroidism, unspecified; E10.40 Type 1 diabetes mellitus with diabetic neuropathy, unspecified; E78.00 Pure hypercholesterolemia, unspecified; Z86.73 Personal history of transient ischemic attack (TIA), and cerebral infarction without residual deficits; Z88.1 Allergy status to other antibiotic agents; Z88.5 Allergy status to narcotic agent; Z88.6 Allergy status to analgesic agent; Z88.8 Allergy status to other drugs, medicaments and biological substances; Z91.018 Allergy to other foods
CPT/HCPCS: 36415; 71046; 71275; 80053; 81001; 84443; 84484; 85025; 85379; 87086; 93005; 96361; 96374; 99285; J1200; J7030; Q9967

== ENCOUNTER 2018-12-02 09:26 | Inpatient (IN) | payer OTHER ==
[~2018-12-02] VITALS: Ht 175.3 cm; Wt 64.0 kg
[~2018-12-02 09:26] MED LIST changes: +NITR100C PO
[2018-12-02] MEDS ORDERED: NITROGLYCERIN SUBLINGUAL 0.4 MG BOTTLE OF 25. SL PRN (09:45)
--- NOTE | 2018-12-02 09:47 | PHYS DOC ---
Past Medical History Past Medical History: Diabetes-Type I, High Cholesterol, Hypothyroid, Hypotension, Stroke, Other Additional Past Medical Histor: NEUROPATHY Past Surgical History: Other Additional Past Surgical Histo: L BREAST L FOOT R KNEE Alcohol Use: None Drug Use: None Adult General Chief Complaint Chief Complaint: chest pain HPI HPI Patient is a 58 year old female with history of diabetes mellitus and dyslipidemia who brought in by EMS with complaining of chest pain. Patient states she has had intermittent episodes of chest pain for 1 year and had her first appointment with sas statistical programmer today at 1400 but complaining of bilateral substernal and under breath chest pain since last night as a sharp and constant pain with radiation to her back and rated her pain 10 over 10. Patient complaining of shortness of breath with taking breath, episodes of dizziness, palpitation denies nausea, focal neuro deficit, fever and chills, cough and congestion. Patient said the pain is like her previous episodes of pain that last for longer term and she decided to call 911. EMS reported that patient complaining of chest pain that started about 15 minutes before calling 911. Review of Systems Review of Systems Constitutional: Denies fever or chills [] Eyes: Denies change in visual acuity, redness, or eye pain [] HENT: Denies nasal congestion or sore throat [] Respiratory: Denies cough or shortness of breath [] Cardiovascular: No additional information not addressed in HPI [] GI: Denies abdominal pain, nausea, vomiting, bloody stools or diarrhea [] : Denies dysuria or hematuria [] Musculoskeletal: Denies back pain or joint pain [] Integument: Denies rash or skin lesions [] Neurologic: Denies headache, focal weakness or sensory changes [] Endocrine: Denies polyuria or polydipsia [] All other systems were reviewed and found to be within normal limits, except as documented in this note. Current Medications Current Medications Current Medications Medications (Trade) Dose Ordered Sig/[place] Start Time Stop Time Status Last Admin Dose Admin Nitroglycerin (Nitrostat) 0.4 mg PRN Q5MIN PRN 12/02/18 09:45 12/03/18 09:44 12/02/18 09:59 0.4 MG Allergies Allergies Allergies Coded Allergies Type Severity Reaction Last Updated Verified atorvastatin Allergy Severe throat swells 10/13/18 Yes ciprofloxacin Allergy Severe "THROAT CLOSES UP" ANAPHYLAXIS 10/13/18 Yes hydroxyzine Allergy Severe DIZZINESS, "I FEEL LIKE IM DRUNK" 10/13/18 Yes raspberry Allergy Severe CHOKING SENSATION IN THROAT 10/13/18 Yes tramadol Allergy Severe VOMITING 10/13/18 Yes amoxicillin Allergy Intermediate 10/13/18 Yes aspirin Allergy Intermediate 10/13/18 Yes cephalexin Allergy Intermediate 10/13/18 Yes codeine Allergy Intermediate 10/13/18 Yes ibuprofen Allergy Intermediate 10/13/18 Yes morphine Allergy Intermediate 10/13/18 Yes simvastatin Allergy Intermediate 10/13/18 Yes sucralose Allergy Intermediate 11/09/18 Yes pregabalin Allergy Mild vomiting 10/13/18 Yes Physical Exam Physical Exam Constitutional: Well developed, mild distress, non-toxic appearance. [] HENT: Normocephalic, atraumatic, oropharynx moist. Eyes: PERRLA, EOMI, conjunctiva normal, no discharge. [] Neck: Normal range of motion, no tenderness, supple, no stridor. [] Cardiovascular:Heart rate regular rhythm, no murmur [] Lungs & Thorax: Bilateral breath sounds clear to auscultation [] Abdomen: Bowel sounds normal, soft, no tenderness, no masses, no pulsatile masses. [] Skin: Warm, dry, no erythema, no rash. [] Back: No tenderness, no CVA tenderness. [] Extremities: No tenderness, no cyanosis, no clubbing, ROM intact, no edema. [] Neurologic: Alert and oriented X 3, normal motor function, normal sensory function, no focal deficits noted. [] Psychologic: Affect normal, judgement normal, mood normal. [] Current Patient Data Vital Signs Vital Signs Date Time Temp Pulse Resp B/P (MAP) Pulse Ox O2 Delivery O2 Flow Rate FiO2 12/02/18 09:59 84 151/85 12/02/18 09:28 98.7 16 100 Room Air 98.7 Lab Values Laboratory Tests Test 12/02/18 09:40 White Blood Count 7.6 x10^3/uL (4.0-11.0) Red Blood Count 4.71 x10^6/uL (3.50-5.40) Hemoglobin 12.9 g/dL (12.0-15.5) Hematocrit 38.7 % (36.0-47.0) Mean Corpuscular Volume 82 fL (79-100) Mean Corpuscular Hemoglobin 27 pg (25-35) Mean Corpuscular Hemoglobin Concent 33 g/dL (31-37) Red Cell Distribution Width 14.3 % (11.5-14.5) Platelet Count 304 x10^3/uL (140-400) Neutrophils (%) (Auto) 65 % (31-73) Lymphocytes (%) (Auto) 26 % (24-48) Monocytes (%) (Auto) 6 % (0-9) Eosinophils (%) (Auto) 2 % (0-3) Basophils (%) (Auto) 1 % (0-3) Neutrophils # (Auto) 4.9 x10^3/uL (1.8-7.7) Lymphocytes # (Auto) 2.0 x10^3/uL (1.0-4.8) Monocytes # (Auto) 0.5 x10^3/uL (0.0-1.1) Eosinophils # (Auto) 0.1 x10^3/uL (0.0-0.7) Basophils # (Auto) 0.1 x10^3/uL (0.0-0.2) Prothrombin Time 12.7 SEC (11.7-14.0) Prothrombin Time INR 1.0 (0.8-1.1) Sodium Level 138 mmol/L (136-145) Potassium Level 4.9 mmol/L (3.5-5.1) Chloride Level 99 mmol/L (98-107) Carbon Dioxide Level 31 mmol/L (21-32) Anion Gap 8 (6-14) Blood Urea Nitrogen 31 mg/dL (7-20) H Creatinine 0.9 mg/dL (0.6-1.0) Estimated GFR (Cockcroft-Gault) 64.8 BUN/Creatinine Ratio 34 (6-20) H Glucose Level 392 mg/dL (70-99) H Calcium Level 10.0 mg/dL (8.5-10.1) Magnesium Level 1.5 mg/dL (1.8-2.4) L Total Bilirubin 0.3 mg/dL (0.2-1.0) Aspartate Amino Transferase (AST) 13 U/L (15-37) L Alanine Aminotransferase (ALT) 22 U/L (14-59) Alkaline Phosphatase 94 U/L (46-116) Creatine Kinase 53 U/L (26-192) Creatine Kinase MB (Mass) 1.4 ng/mL (0.0-3.6) Creatine Kinase MB Relative Index % (0-4) Troponin I Quantitative < 0.017 ng/mL (0.000-0.055) NJ-Ozb-D-Type Natriuretic Peptide 126 pg/mL (0-124) H Total Protein 7.7 g/dL (6.4-8.2) Albumin 3.3 g/dL (3.4-5.0) L Albumin/Globulin Ratio 0.8 (1.0-1.7) L Lipase 240 U/L (73-393) Laboratory Tests 12/02/18 09:40 Laboratory Tests 12/02/18 09:40 EKG EKG EKG interpreted by me. EKG at 0932 showed normal sinus rhythm at rate of 87, abnormal left axis deviation, left anterior fascicular block, poor R-wave progress in anterior leads, no acute ST and T-wave abnormalities. Radiology/Procedures Radiology/Procedures [facility] [address] [place] [address] IMAGING REPORT Signed PATIENT: TAYLOR SARAVIA ACCOUNT: [id number] : 1960 LOCATION: ER AGE: 58 SEX: F EXAM STATUS: PRE ER ORD. PHYSICIAN: PAXTON RATLIFF MD REASON: chest pain PROCEDURE: PORTABLE CHEST 1V PROCEDURE: PORTABLE CHEST 1V CLINICAL INDICATION: Chest pain. COMPARISON: 11/09/2018 FINDINGS: No pneumothorax identified. Cardiac and mediastinal contours unremarkable. No pulmonary consolidation or acute airspace disease. No acute osseous abnormalities identified. IMPRESSION: No pulmonary consolidation or acute airspace disease. Electronically signed by: Praneeth Yeboah DO (12/02/2018 9:56 AM) [facility] DICTATED and SIGNED BY: PRANEETH YEBOAH DO DATE: 12/02/18 0956 Course & Med Decision Making Course & Med Decision Making Pertinent Labs and Imaging studies reviewed. (See chart for details) Evaluation of patient in ER showed 58-year-old female patient brought in by EMS because of chest pain since last night and history of intermittent episodes of chest pain for 1 year. Patient had blood pressure of 130s and 150s and treated with 1 dose of nitroglycerin but her blood pressure dropped to 60s that improved in a short time with IV fluid . Patient treated with fentanyl and felt better. Patient had magnesium of 1.5 and blood sugar of 392 and treated with magnesium and insulin.Patient requiring admission for further evaluation and treatment. Discussed with Dr. Boyle who is in agreement with admission. Discussed findings and plan with patient and family, who acknowledge understanding and agreement. Dragon Disclaimer Dragon Disclaimer This electronic medical record was generated, in whole or in part, using a voice recognition dictation system. Departure Departure Impression: Primary Impression: Acute chest pain Additional Impressions: Hypomagnesemia Hyperglycemia Uncontrolled diabetes mellitus Disposition: ADMITTED INPATIENT (at 1001) Admitting Physician: AARON (Dr. Boyle accepted admission at 1000) Condition: IMPROVED Referrals: ANN KIRK (PCP) The HEART Score for CP Pts HEART Score for Chest Pain: HEART Score for Chest Pain Response (Comments) Value History Moderately Suspicious 1 ECG Nonspecific Repolarizatio 1 Age >45 - < 65 1 Risk Factors >3 Risk Factors or Hx CAD 2 Troponin < Normal Limit 0 Total 5 Risk Factors: Risk Factors: DM, Current or recent (<one month) smoker, HTN, HLP, family history of CAD, obesity. Risk Scores: Score 0 - 3: 2.5% MACE over next 6 weeks - Discharge Home Score 4 - 6: 20.3% MACE over next 6 weeks - Admit for Clinical Observation Score 7 - 10: 72.7% MACE over next 6 weeks - Early Invasive Strategies Problem Qualifiers PAXTON RATLIFF MD Dec 02, 2018 09:47
[2018-12-02 09:58] LABS: BASO # 0.1 x10^3/uL (0.0-0.2); BASO % 1 % (0-3); EOS # 0.1 x10^3/uL (0.0-0.7); EOS % 2 % (0-3); HEMATOCRIT 38.7 % (36.0-47.0); HEMOGLOBIN 12.9 g/dL (12.0-15.5); LYMPH % 26 % (24-48); MEAN CORPUSCULAR HEMOGLOBIN 27 pg (25-35); MEAN CORPUSCULAR HGB CONC 33 g/dL (31-37); MEAN CORPUSCULAR VOLUME 82 fL (79-100); MONO # 0.5 x10^3/uL (0.0-1.1); MONO % 6 % (0-9); NEUT # 4.9 x10^3/uL (1.8-7.7); NEUT % 65 % (31-73); PLATELET COUNT 304 x10^3/uL (140-400); RED BLOOD COUNT 4.71 x10^6/uL (3.50-5.40); RED CELL DISTRIBUTION WIDTH 14.3 % (11.5-14.5); WHITE BLOOD COUNT 7.6 x10^3/uL (4.0-11.0)
--- NOTE | 2018-12-02 09:59 | RAD ---
PROCEDURE: PORTABLE CHEST 1V CLINICAL INDICATION: Chest pain. COMPARISON: 11/09/2018 FINDINGS: No pneumothorax identified. Cardiac and mediastinal contours unremarkable. No pulmonary consolidation or acute airspace disease. No acute osseous abnormalities identified. IMPRESSION: No pulmonary consolidation or acute airspace disease. Electronically signed by: Praneeth Yeboah DO (12/02/2018 9:56 AM) [facility]
[2018-12-02 10:06] LABS: CREATININE 0.9 mg/dL (0.6-1.0); GFR 64.8; POTASSIUM 4.9 mmol/L (3.5-5.1)
[2018-12-02 10:09] LABS: PROTHROMBIN TIME PATIENT 12.7 SEC (11.7-14.0)
[2018-12-02 10:12] LABS: ALBUMIN 3.3 g/dL (3.4-5.0); ALBUMIN/GLOBULIN RATIO 0.8 (1.0-1.7); MAGNESIUM 1.5 mg/dL (1.8-2.4); TOTAL BILIRUBIN 0.3 mg/dL (0.2-1.0); TOTAL PROTEIN 7.7 g/dL (6.4-8.2)
[2018-12-02] MEDS ORDERED: IV NORMAL SALINE 500ML BAG 500 ML IV ONE (10:15)
[2018-12-02 10:19] LABS: CREATINE KINASE 53 U/L (26-192)
[2018-12-02] MEDS ORDERED: fentaNYL PF VIAL 100 MCG/2 ML VIAL IV ONE (10:30)
--- NOTE | 2018-12-02 10:37 | EKG ---
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
[2018-12-02] MEDS ORDERED: INSULIN REGULAR 100 UNIT/ML 3ML VIAL. SQ ONE (10:45)
[2018-12-02] MEDS ORDERED: MAGNESIUM SULFATE 2GM 50 ML IV ONE (10:45)
[2018-12-02 11:55] VITALS: BP 137/83
[2018-12-02] MEDS ORDERED: DEXTROSE 50% 25 GM / 50ML DISP.SYRIN. IV PRN (12:15)
[2018-12-02] MEDS ORDERED: MAGNESIUM SULFATE 1GM 100 ML IV ONE (12:15)
[2018-12-02] MEDS ORDERED: IV DEXTROSE 5% 250 ML BAG. IV PRN (12:15)
[2018-12-02] MEDS: MIDODRINE 5 MG TABLET PO SCH ×2 (12:36→17:50)
[2018-12-02] MEDS: INSULIN LISPRO 300 UNITS/3 ML INSULN.PEN. SQ SCH ×2 (12:40→17:35)
--- NOTE | 2018-12-02 13:53 | NUR ---
Wound care: Patient seen per wound care consult. Patient has been seen multiple times from previous admissions regarding wounds to bilateral lower extremities. Patient states they are from "insect bites" and from recent "falls" They are all scabbed at this time. patient had been painting them with Iodine in the past until recently had a reaction to IV contrast. Therefore has been leaving open to air at this time. Patient does not need wound care at this time as they are all scabbed and patient wishes to manage them per self. No other areas noted for concern. Wound care will sign off at this time. Please re consult regarding any changes per wound care. Bed lowered and call light in reach. Spoke with RN regarding POC.
--- NOTE | 2018-12-02 14:38 | PDOC2 ---
CONSULT Date of Consult Date of Consult DATE: 12/02/18 TIME: 14:30 Reason for Consult Reason for Consult: Chest pain Referring Physician Referring Physician: Dr. Boyle Identification/Chief Complaint Chief Complaint Chest pain Source Source: Chart review, Patient History of Present Illness Reason for Visit: The patient is a 58-year-old female who was originally admitted from the emergency room for episodes of chest discomfort. His chest discomfort has been occasional over the past year which reportedly stated it was increased at the time of ER visits. Patient's EKG showed no acute ischemic changes. Initial troponin was not elevated. Glucose however was elevated at 392. Patient was admitted and on review the patient reports feeling better. History is significant for a total thyroidectomy on 10/13/18. A CTA of the chest on 11/09/18 showed no evidence of a pulmonary embolism. She does report a history of a previous stroke. Her chest pain as noted above is been present occasionally for the past year. She also reports episodes of near syncope and syncope over the past year. She reports that she was followed by Dr. Cox and had an abnormal tilt table test in 2018. At present she is comfortable eating lunch in bed. Past Medical History Cardiovascular: Hyperlipidemia, Other Pulmonary: COPD CENTRAL NERVOUS SYSTEM: CVA, Periperal neuropathy GI: No pertinent hx Heme/Onc: No pertinent hx Hepatobiliary: No pertinent hx Psych: No pertinent hx Musculoskeletal: Osteoarthritis Rheumatologic: No pertinent hx Infectious disease: Other Renal/: No pertinent hx Endocrine: Diabetes, Hyperthyroidism Past Surgical History Past Surgical History: Other (recent total thyroidectomy) Family History Family History: Diabetes Social History ALCOHOL: none Drugs: None Lives: with Family Current Problem List Problem List Problems Medical Problems: (1) Acute chest pain Status: Acute (2) Hyperglycemia Status: Acute (3) Hypomagnesemia Status: Acute (4) Uncontrolled diabetes mellitus Status: Acute Current Medications Current Medications Current Medications Nitroglycerin (Nitrostat) 0.4 mg PRN Q5MIN PRN SL CP RATING > 1/10 Last administered on 12/02/18at 09:59; Start 12/02/18 at 09:45; Stop 12/03/18 at 09:44 Sodium Chloride 500 ml @ 500 mls/hr 1X ONCE IV Last administered on 12/02/18at 10:11; Start 12/02/18 at 10:15; Stop 12/02/18 at 11:14; Status DC Fentanyl Citrate (Fentanyl 2ml Vial) 50 mcg 1X ONCE IV Last administered on 12/02/18at 10:44; Start 12/02/18 at 10:30; Stop 12/02/18 at 10:31; Status DC Magnesium Sulfate 50 ml @ 25 mls/hr 1X ONCE IV Last administered on 12/02/18at 10:44; Start 12/02/18 at 10:45; Stop 12/02/18 at 12:44; Status DC Insulin Human Regular (HumuLIN R VIAL) 10 unit 1X ONCE SQ Last administered on 12/02/18at 10:44; Start 12/02/18 at 10:45; Stop 12/02/18 at 10:46; Status DC Gabapentin (Neurontin) 600 mg HS PO ; Start 12/02/18 at 21:00 Levothyroxine Sodium (Synthroid) 100 mcg DAILY06 PO ; Start 12/03/18 at 06:00 Amitriptyline HCl (Elavil) 100 mg QHS PO ; Start 12/02/18 at 21:00 Non-Formulary Medication (Lovastatin ) 10 mg HS PO ; Start 12/02/18 at 21:00; Status UNV Midodrine (Proamatine) 10 mg [id number] PO Last administered on 12/02/18at 12:40; Start 12/02/18 at 13:00 Acetaminophen (Tylenol) 500 mg QHS PO ; Start 12/02/18 at 21:00 Insulin Human Lispro (HumaLOG) 0-7 UNITS TIDWMEALS SQ Last administered on 12/02/18at 12:40; Start 12/02/18 at 12:30 Dextrose (Dextrose 50%-Water Syringe) 12.5 gm PRN Q15MIN PRN IV SEE COMMENTS; Start 12/02/18 at 12:15 Dextrose 250 ml PRN Q15MIN PRN IV SEE COMMENTS; Start 12/02/18 at 12:15 Magnesium Sulfate/ Dextrose 100 ml @ 100 mls/hr 1X ONCE IV Last administered on 12/02/18at 12:40; Start 12/02/18 at 12:15; Stop 12/02/18 at 13:14; Status DC Diphenhydramine HCl (Benadryl) 25 mg QHS PO ; Start 12/02/18 at 21:00 Non-Formulary Medication 1 ea DAILY08 SQ ; Start 12/03/18 at 08:00 Active Scripts Active Synthroid (Levothyroxine Sodium) 100 Mcg Tablet 100 Mcg PO DAILY06 Reported [Acetaminophen Pm] 1 Tab PO HS Novolog Flexpen (Insulin Aspart) 100 Unit/1 Ml Insuln.pen 1 Unit SQ TIDAC Midodrine Hcl 10 Mg Tablet 10 Mg PO TID Basaglar Kwikpen U-100 (Insulin Glargine,Hum.rec.anlog) 100 Unit/1 Ml Insuln.pen 30 Unit SQ DAILY08 Lovastatin 10 Mg Tablet 10 Mg PO HS Gabapentin (Gabapentin) 300 Mg Capsule 600 Mg PO HS Amitriptyline Hcl 100 Mg Tablet 1 Tab PO QHS Allergies Allergies: Coded Allergies: atorvastatin (Verified Allergy, Severe, throat swells, 10/13/18) ciprofloxacin (Verified Allergy, Severe, "THROAT CLOSES UP" ANAPHYLAXIS, 10/13/18) hydroxyzine (Verified Allergy, Severe, DIZZINESS, "I FEEL LIKE IM DRUNK", 10/13/18) raspberry (Verified Allergy, Severe, CHOKING SENSATION IN THROAT, 10/13/18) tramadol (Verified Allergy, Severe, VOMITING, 10/13/18) amoxicillin (Verified Allergy, Intermediate, 10/13/18) aspirin (Verified Allergy, Intermediate, 10/13/18) cephalexin (Verified Allergy, Intermediate, 10/13/18) codeine (Verified Allergy, Intermediate, 10/13/18) ibuprofen (Verified Allergy, Intermediate, 10/13/18) morphine (Verified Allergy, Intermediate, 10/13/18) simvastatin (Verified Allergy, Intermediate, 10/13/18) LEGS BUCKEL, LOSE FEELING sucralose (Verified Allergy, Intermediate, 11/09/18) pregabalin (Verified Allergy, Mild, vomiting, 10/13/18) ROS General: YES: Fatigue PSYCHOLOGICAL ROS: YES: Anxiety Cardiovascular: yes Chest Pain, yes Palpitations, yes Lt Headedness, yes Other (syncope) Physical Exam General: No acute distress HEENT: Atraumatic Lungs: Clear to auscultation Heart: Regular rate Abdomen: Normal bowel sounds Vitals VITALS Vital Signs Date Time Temp Pulse Resp B/P (MAP) Pulse Ox O2 Delivery O2 Flow Rate FiO2 12/02/18 12:54 Room Air 12/02/18 12:40 84 137/83 12/02/18 11:55 97.9 18 100 97.9 Labs Labs Laboratory Tests Test 12/02/18 09:40 12/02/18 11:58 White Blood Count 7.6 x10^3/uL (4.0-11.0) Red Blood Count 4.71 x10^6/uL (3.50-5.40) Hemoglobin 12.9 g/dL (12.0-15.5) Hematocrit 38.7 % (36.0-47.0) Mean Corpuscular Volume 82 fL (79-100) Mean Corpuscular Hemoglobin 27 pg (25-35) Mean Corpuscular Hemoglobin Concent 33 g/dL (31-37) Red Cell Distribution Width 14.3 % (11.5-14.5) Platelet Count 304 x10^3/uL (140-400) Neutrophils (%) (Auto) 65 % (31-73) Lymphocytes (%) (Auto) 26 % (24-48) Monocytes (%) (Auto) 6 % (0-9) Eosinophils (%) (Auto) 2 % (0-3) Basophils (%) (Auto) 1 % (0-3) Neutrophils # (Auto) 4.9 x10^3/uL (1.8-7.7) Lymphocytes # (Auto) 2.0 x10^3/uL (1.0-4.8) Monocytes # (Auto) 0.5 x10^3/uL (0.0-1.1) Eosinophils # (Auto) 0.1 x10^3/uL (0.0-0.7) Basophils # (Auto) 0.1 x10^3/uL (0.0-0.2) Prothrombin Time 12.7 SEC (11.7-14.0) Prothromb Time International Ratio 1.0 (0.8-1.1) Sodium Level 138 mmol/L (136-145) Potassium Level 4.9 mmol/L (3.5-5.1) Chloride Level 99 mmol/L (98-107) Carbon Dioxide Level 31 mmol/L (21-32) Anion Gap 8 (6-14) Blood Urea Nitrogen 31 mg/dL (7-20) Creatinine 0.9 mg/dL (0.6-1.0) Estimated GFR (Cockcroft-Gault) 64.8 BUN/Creatinine Ratio 34 (6-20) Glucose Level 392 mg/dL (70-99) Calcium Level 10.0 mg/dL (8.5-10.1) Magnesium Level 1.5 mg/dL (1.8-2.4) Total Bilirubin 0.3 mg/dL (0.2-1.0) Aspartate Amino Transf (AST/SGOT) 13 U/L (15-37) Alanine Aminotransferase (ALT/SGPT) 22 U/L (14-59) Alkaline Phosphatase 94 U/L (46-116) Creatine Kinase 53 U/L (26-192) Creatine Kinase MB (Mass) 1.4 ng/mL (0.0-3.6) Creatine Kinase MB Relative Index % (0-4) Troponin I Quantitative < 0.017 ng/mL (0.000-0.055) OY-Erl-V-Type Natriuretic Peptide 126 pg/mL (0-124) Total Protein 7.7 g/dL (6.4-8.2) Albumin 3.3 g/dL (3.4-5.0) Albumin/Globulin Ratio 0.8 (1.0-1.7) Lipase 240 U/L (73-393) Glucose (Fingerstick) 302 mg/dL (70-99) Laboratory Tests Test 12/02/18 09:40 12/02/18 11:58 White Blood Count 7.6 x10^3/uL (4.0-11.0) Red Blood Count 4.71 x10^6/uL (3.50-5.40) Hemoglobin 12.9 g/dL (12.0-15.5) Hematocrit 38.7 % (36.0-47.0) Mean Corpuscular Volume 82 fL (79-100) Mean Corpuscular Hemoglobin 27 pg (25-35) Mean Corpuscular Hemoglobin Concent 33 g/dL (31-37) Red Cell Distribution Width 14.3 % (11.5-14.5) Platelet Count 304 x10^3/uL (140-400) Neutrophils (%) (Auto) 65 % (31-73) Lymphocytes (%) (Auto) 26 % (24-48) Monocytes (%) (Auto) 6 % (0-9) Eosinophils (%) (Auto) 2 % (0-3) Basophils (%) (Auto) 1 % (0-3) Neutrophils # (Auto) 4.9 x10^3/uL (1.8-7.7) Lymphocytes # (Auto) 2.0 x10^3/uL (1.0-4.8) Monocytes # (Auto) 0.5 x10^3/uL (0.0-1.1) Eosinophils # (Auto) 0.1 x10^3/uL (0.0-0.7) Basophils # (Auto) 0.1 x10^3/uL (0.0-0.2) Prothrombin Time 12.7 SEC (11.7-14.0) Prothromb Time International Ratio 1.0 (0.8-1.1) Sodium Level 138 mmol/L (136-145) Potassium Level 4.9 mmol/L (3.5-5.1) Chloride Level 99 mmol/L (98-107) Carbon Dioxide Level 31 mmol/L (21-32) Anion Gap 8 (6-14) Blood Urea Nitrogen 31 mg/dL (7-20) Creatinine 0.9 mg/dL (0.6-1.0) Estimated GFR (Cockcroft-Gault) 64.8 BUN/Creatinine Ratio 34 (6-20) Glucose Level 392 mg/dL (70-99) Calcium Level 10.0 mg/dL (8.5-10.1) Magnesium Level 1.5 mg/dL (1.8-2.4) Total Bilirubin 0.3 mg/dL (0.2-1.0) Aspartate Amino Transf (AST/SGOT) 13 U/L (15-37) Alanine Aminotransferase (ALT/SGPT) 22 U/L (14-59) Alkaline Phosphatase 94 U/L (46-116) Creatine Kinase 53 U/L (26-192) Creatine Kinase MB (Mass) 1.4 ng/mL (0.0-3.6) Creatine Kinase MB Relative Index % (0-4) Troponin I Quantitative < 0.017 ng/mL (0.000-0.055) YE-Kmr-J-Type Natriuretic Peptide 126 pg/mL (0-124) Total Protein 7.7 g/dL (6.4-8.2) Albumin 3.3 g/dL (3.4-5.0) Albumin/Globulin Ratio 0.8 (1.0-1.7) Lipase 240 U/L (73-393) Glucose (Fingerstick) 302 mg/dL (70-99) Images Images Chest CTA as above. Chest x-ray shows no acute changes Assessment/Plan Assessment/Plan 1. Chest pain. Pain is greatly improved. The pain has been present periodically over the past year. No acute EKG changes. Initial troponin not 6 and elevated. We will rule out for an acute myocardial infarction. Continue medical treatment. Consider nuclear stress testing. 2. Episodes of syncope over the past year. Rhythm is now stable. Reportedly abnormal tilt table test with Dr. Garrison over a year ago. We'll continue present treatments and monitoring. Patient may require outpatient monitor. 3. Poorly controlled diabetes. As per the primary service. 4. Hyperlipidemia. We'll check lab. 5. History of a CVA. We'll continue present treatments. Thank you for allowing us to participate in the care of your patient. MACKENZIE COOPER MD Dec 02, 2018 14:38
[2018-12-02 15:00] VITALS: BP 121/60
[2018-12-02] MEDS ORDERED: fentaNYL PF VIAL 100 MCG/2 ML VIAL IV PRN (15:45)
[2018-12-02] MEDS ORDERED: LIDO:MAALOX 1:1 20 ML SINGLE DOSE. PO PRN (15:45)
--- NOTE | 2018-12-02 15:45 | HP ---
ADMIT DATE: 12/02/2018 CHIEF COMPLAINT: Chest pain. HISTORY OF PRESENT ILLNESS: The patient is a pleasant 58-year-old female who presents with chest pain. She has diabetes and family history. She also has hyperlipidemia. Rates her symptoms at 10/10. We gave her some nitroglycerin; that helped but it dropped her pressure a little too much. I discussed the case with ER physician. We are going to admit the patient and consult Cardiology. PAST MEDICAL HISTORY: Diabetes, hypertension, hyperlipidemia, hypotension, neuropathy, and left breast, left foot, and right knee surgery. ALLERGIES: Multiple, please refer to the chart, but she does have allergies to AMOXICILLIN, ASPIRIN, ATORVASTATIN, CEPHALEXIN, CIPRO, CODEINE, HYDROXYZINE, IBUPROFEN, MORPHINE, RASPBERRIES, SIMVASTATION, SUCROSE, AND ULTRAM. FAMILY HISTORY: Coronary artery disease. SOCIAL HISTORY: She does not drink, smoke, or take drugs. [place] is , [place] MEDICATIONS: Reviewed, please refer to the MRAD. REVIEW OF SYSTEMS: GENERAL: No history of weight change, weakness or fevers. SKIN: No bruising, hair changes or rashes. EYES: No blurred, double or loss of vision. NOSE AND THROAT: No history of nosebleeds, hoarseness or sore throat. HEART: She complains of chest pain. LUNGS: Denies cough, hemoptysis, wheezing or shortness of breath. GASTROINTESTINAL: Denies changes in appetite, nausea, vomiting, diarrhea or constipation. GENITOURINARY: No history of frequency, urgency, hesitancy or nocturia. NEUROLOGIC: Denies history of numbness, tingling, tremor or weakness. PSYCHIATRIC: No history of panic, anxiety or depression. ENDOCRINE: No history of heat or cold intolerance, polyuria or polydipsia. EXTREMITIES: Denies muscle weakness, joint pain, pain on walking or stiffness. PHYSICAL EXAMINATION: VITALS: Within normal limits and are stable. GENERAL: No apparent distress. Alert and oriented. HEENT: Head is normocephalic, atraumatic, pupils were equally round and reactive to light and accommodation. NECK: Supple, no JVD, no thyromegaly was noted. LUNGS: Clear to auscultation in all lung guzmán without rhonchi or wheezing. HEART: RRR, S1, S2 present. Peripheral pulses intact, no obvious murmurs were noted. ABDOMEN: Soft, nontender. Positive bowel sounds no organomegaly, normal bowel sounds. EXTREMITIES: Without any cyanosis, clubbing, or edema. Pedal pulses intact, Homans sign is negative. NEUROLOGIC: Normal speech, normal tone. A & O x3, moves all extremities, no obvious focal deficits. PSYCHIATRIC: Normal affect, normal mood. Stable. SKIN: No ulcerations or rashes, good skin turgor, no jaundice. VASCULAR: Good capillary refill, neurovascular bundle appears to be intact. LABORATORY DATA: Troponin is 0. ASSESSMENT AND PLAN: Chest pain, rule out coronary artery disease. The patient has been admitted. We will check serial enzymes, serial EKGs, echocardiogram, and consult cardiology. We cannot give her aspirin because she is allergic to it. PT/OT and DVT prophylaxis. PROGNOSIS: Guarded. NIMESH LANIER DO DR: ABRAHAM/ted JOB#: [id number] / [id number]
[2018-12-02] MEDS ORDERED: NON FORMULARY ITEM SQ SCH (16:30)
[2018-12-02] MEDS ORDERED: ONDANSETRON PF 4 MG/2 ML VIAL. IV PRN (17:15)
[2018-12-02 19:00] VITALS: BP 165/92
--- NOTE | 2018-12-02 19:30 | NUR ---
upon doing assassment pt has areas on bilateral legs and left buttucks. pt picks at areas. no drainage noted. see wound assessment. lcrn
--- NOTE | 2018-12-02 20:30 | NUR ---
pt used call light to say she was feeling "funny". pt was laying flat in bed, bp 191/103. sat pt up in bed bp went to 151/84. expalained to pt she isnt to lay flat and she needs to move very slowly when changing positions. lcrn
[2018-12-02] MEDS ORDERED: ACETAMINOPHEN 500 MG TABLET PO SCH (21:00)
[2018-12-02] MEDS ORDERED: AMITRIPTYLINE HCL 25 MG TABLET. PO SCH (21:00)
[2018-12-02] MEDS ORDERED: GABAPENTIN 300 MG CAPSULE. PO SCH (21:00)
[2018-12-02] MEDS ORDERED: diphenhydrAMINE HCL 25 MG CAPSULE PO SCH (21:00)
[2018-12-02] MEDS ORDERED: Lovastatin 10 MG PO SCH (21:00)
[2018-12-02 23:00] VITALS: BP 120/75
--- NOTE | 2018-12-03 02:30 | NUR ---
per rn amado, pt set off bed alarm. rn went to help her onto commode when she went unresponsive, eyes rolled back, rn layed her in bed and did sternal rub, pt started answering question. all were answered apprioately. pt bp post episode 97/56. lcrn
[2018-12-03 03:00] VITALS: BP 128/72
[2018-12-03] MEDS: LEVOTHYROXINE 100 MCG TABLET PO SCH ×2 (06:00→09:17)
[2018-12-03 06:51] LABS: CALCIUM 8.9 mg/dL (8.5-10.1); CREATININE 1.1 mg/dL (0.6-1.0); GFR 51.4; MAGNESIUM 2.2 mg/dL (1.8-2.4); POTASSIUM 4.2 mmol/L (3.5-5.1)
[2018-12-03 06:53] LABS: CHOLESTEROL/HDL RATIO 3.5
[2018-12-03 07:00] VITALS: BP 159/94
[2018-12-03] MEDS: INSULIN LISPRO 300 UNITS/3 ML INSULN.PEN. SQ SCH ×5 (08:00→17:41)
[2018-12-03] MEDS ORDERED: [UNRECOGNIZED DRUG - OTHER] SQ SCH (08:00)
--- NOTE | 2018-12-03 08:33 | PDOC ---
PROGRESS NOTES Chief Complaint Chief Complaint DM - unclear if she is type 1. States she sees Dr. Chicas at [facility] through [facility]. 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 She was hypotensive after NTG. She states today she was at work and a internal security manager was walking around and informed her she didn't look right and called 911. Patient denies anything specific and exacerbating or relieving her symptoms. Denies any chest pain or shortness of breath. S/p total thyroidectomy on 10/13/18 on replacement now. On ROS she notes recent weakness and weight loss. Mag was profoundly low 1.5. Having dizziness and severe orthostatis. who presents with chest pain. She has family history of CAD. Rates her symptoms at 10/10. We gave her some nitroglycerin; that helped but it dropped her pressure a little too much. I discussed the case with ER physician. We are going to admit the patient and consult Cardiology. Vitals Vitals Vital Signs Date Time Temp Pulse Resp B/P (MAP) Pulse Ox O2 Delivery O2 Flow Rate FiO2 12/03/18 03:00 97.9 82 14 128/72 (90) 99 Room Air 97.9 Physical Exam General: Alert, Oriented X3, Cooperative, No acute distress Heart: Regular rate Lungs: Clear Abdomen: Normal bowel sounds Labs LABS Laboratory Tests Test 12/02/18 09:40 12/02/18 11:58 12/02/18 13:42 12/02/18 16:25 White Blood Count 7.6 x10^3/uL (4.0-11.0) Red Blood Count 4.71 x10^6/uL (3.50-5.40) Hemoglobin 12.9 g/dL (12.0-15.5) Hematocrit 38.7 % (36.0-47.0) Mean Corpuscular Volume 82 fL (79-100) Mean Corpuscular Hemoglobin 27 pg (25-35) Mean Corpuscular Hemoglobin Concent 33 g/dL (31-37) Red Cell Distribution Width 14.3 % (11.5-14.5) Platelet Count 304 x10^3/uL (140-400) Neutrophils (%) (Auto) 65 % (31-73) Lymphocytes (%) (Auto) 26 % (24-48) Monocytes (%) (Auto) 6 % (0-9) Eosinophils (%) (Auto) 2 % (0-3) Basophils (%) (Auto) 1 % (0-3) Neutrophils # (Auto) 4.9 x10^3/uL (1.8-7.7) Lymphocytes # (Auto) 2.0 x10^3/uL (1.0-4.8) Monocytes # (Auto) 0.5 x10^3/uL (0.0-1.1) Eosinophils # (Auto) 0.1 x10^3/uL (0.0-0.7) Basophils # (Auto) 0.1 x10^3/uL (0.0-0.2) Prothrombin Time 12.7 SEC (11.7-14.0) Prothromb Time International Ratio 1.0 (0.8-1.1) Sodium Level 138 mmol/L (136-145) Potassium Level 4.9 mmol/L (3.5-5.1) Chloride Level 99 mmol/L (98-107) Carbon Dioxide Level 31 mmol/L (21-32) Anion Gap 8 (6-14) Blood Urea Nitrogen 31 mg/dL (7-20) Creatinine 0.9 mg/dL (0.6-1.0) Estimated GFR (Cockcroft-Gault) 64.8 BUN/Creatinine Ratio 34 (6-20) Glucose Level 392 mg/dL (70-99) Calcium Level 10.0 mg/dL (8.5-10.1) Magnesium Level 1.5 mg/dL (1.8-2.4) Total Bilirubin 0.3 mg/dL (0.2-1.0) Aspartate Amino Transf (AST/SGOT) 13 U/L (15-37) Alanine Aminotransferase (ALT/SGPT) 22 U/L (14-59) Alkaline Phosphatase 94 U/L (46-116) Creatine Kinase 53 U/L (26-192) Creatine Kinase MB (Mass) 1.4 ng/mL (0.0-3.6) Creatine Kinase MB Relative Index % (0-4) Troponin I Quantitative < 0.017 ng/mL (0.000-0.055) < 0.017 ng/mL (0.000-0.055) < 0.017 ng/mL (0.000-0.055) LD-Rcr-M-Type Natriuretic Peptide 126 pg/mL (0-124) Total Protein 7.7 g/dL (6.4-8.2) Albumin 3.3 g/dL (3.4-5.0) Albumin/Globulin Ratio 0.8 (1.0-1.7) Lipase 240 U/L (73-393) Glucose (Fingerstick) 302 mg/dL (70-99) Test 12/02/18 17:25 12/02/18 21:24 12/03/18 02:25 12/03/18 05:55 Glucose (Fingerstick) 179 mg/dL (70-99) 192 mg/dL (70-99) 193 mg/dL (70-99) Sodium Level 139 mmol/L (136-145) Potassium Level 4.2 mmol/L (3.5-5.1) Chloride Level 102 mmol/L (98-107) Carbon Dioxide Level 29 mmol/L (21-32) Anion Gap 8 (6-14) Blood Urea Nitrogen 31 mg/dL (7-20) Creatinine 1.1 mg/dL (0.6-1.0) Estimated GFR (Cockcroft-Gault) 51.4 Glucose Level 218 mg/dL (70-99) Calcium Level 8.9 mg/dL (8.5-10.1) Magnesium Level 2.2 mg/dL (1.8-2.4) Triglycerides Level 109 mg/dL (0-150) Cholesterol Level 234 mg/dL (0-200) LDL Cholesterol, Calculated 146 mg/dL (0-100) VLDL Cholesterol, Calculated 22 mg/dL (0-40) Non-HDL Cholesterol Calculated 168 mg/dL (0-129) HDL Cholesterol 66 mg/dL (40-60) Cholesterol/HDL Ratio 3.5 Thyroid Stimulating Hormone (TSH) 6.864 uIU/mL (0.358-3.74) Assessment and Plan Assessmemt and Plan Problems Medical Problems: (1) Acute chest pain Status: Acute (2) Hyperglycemia Status: Acute (3) Hypomagnesemia Status: Acute (4) Uncontrolled diabetes mellitus Status: Acute Comment Review of Relevant I have reviewed the following items zurdo (where applicable) has been applied. Labs Laboratory Tests Test 12/02/18 09:40 12/02/18 11:58 12/02/18 13:42 12/02/18 16:25 White Blood Count 7.6 x10^3/uL (4.0-11.0) Red Blood Count 4.71 x10^6/uL (3.50-5.40) Hemoglobin 12.9 g/dL (12.0-15.5) Hematocrit 38.7 % (36.0-47.0) Mean Corpuscular Volume 82 fL (79-100) Mean Corpuscular Hemoglobin 27 pg (25-35) Mean Corpuscular Hemoglobin Concent 33 g/dL (31-37) Red Cell Distribution Width 14.3 % (11.5-14.5) Platelet Count 304 x10^3/uL (140-400) Neutrophils (%) (Auto) 65 % (31-73) Lymphocytes (%) (Auto) 26 % (24-48) Monocytes (%) (Auto) 6 % (0-9) Eosinophils (%) (Auto) 2 % (0-3) Basophils (%) (Auto) 1 % (0-3) Neutrophils # (Auto) 4.9 x10^3/uL (1.8-7.7) Lymphocytes # (Auto) 2.0 x10^3/uL (1.0-4.8) Monocytes # (Auto) 0.5 x10^3/uL (0.0-1.1) Eosinophils # (Auto) 0.1 x10^3/uL (0.0-0.7) Basophils # (Auto) 0.1 x10^3/uL (0.0-0.2) Prothrombin Time 12.7 SEC (11.7-14.0) Prothromb Time International Ratio 1.0 (0.8-1.1) Sodium Level 138 mmol/L (136-145) Potassium Level 4.9 mmol/L (3.5-5.1) Chloride Level 99 mmol/L (98-107) Carbon Dioxide Level 31 mmol/L (21-32) Anion Gap 8 (6-14) Blood Urea Nitrogen 31 mg/dL (7-20) Creatinine 0.9 mg/dL (0.6-1.0) Estimated GFR (Cockcroft-Gault) 64.8 BUN/Creatinine Ratio 34 (6-20) Glucose Level 392 mg/dL (70-99) Calcium Level 10.0 mg/dL (8.5-10.1) Magnesium Level 1.5 mg/dL (1.8-2.4) Total Bilirubin 0.3 mg/dL (0.2-1.0) Aspartate Amino Transf (AST/SGOT) 13 U/L (15-37) Alanine Aminotransferase (ALT/SGPT) 22 U/L (14-59) Alkaline Phosphatase 94 U/L (46-116) Creatine Kinase 53 U/L (26-192) Creatine Kinase MB (Mass) 1.4 ng/mL (0.0-3.6) Creatine Kinase MB Relative Index % (0-4) Troponin I Quantitative < 0.017 ng/mL (0.000-0.055) < 0.017 ng/mL (0.000-0.055) < 0.017 ng/mL (0.000-0.055) FP-Aqj-S-Type Natriuretic Peptide 126 pg/mL (0-124) Total Protein 7.7 g/dL (6.4-8.2) Albumin 3.3 g/dL (3.4-5.0) Albumin/Globulin Ratio 0.8 (1.0-1.7) Lipase 240 U/L (73-393) Glucose (Fingerstick) 302 mg/dL (70-99) Test 12/02/18 17:25 12/02/18 21:24 12/03/18 02:25 12/03/18 05:55 Glucose (Fingerstick) 179 mg/dL (70-99) 192 mg/dL (70-99) 193 mg/dL (70-99) Sodium Level 139 mmol/L (136-145) Potassium Level 4.2 mmol/L (3.5-5.1) Chloride Level 102 mmol/L (98-107) Carbon Dioxide Level 29 mmol/L (21-32) Anion Gap 8 (6-14) Blood Urea Nitrogen 31 mg/dL (7-20) Creatinine 1.1 mg/dL (0.6-1.0) Estimated GFR (Cockcroft-Gault) 51.4 Glucose Level 218 mg/dL (70-99) Calcium Level 8.9 mg/dL (8.5-10.1) Magnesium Level 2.2 mg/dL (1.8-2.4) Triglycerides Level 109 mg/dL (0-150) Cholesterol Level 234 mg/dL (0-200) LDL Cholesterol, Calculated 146 mg/dL (0-100) VLDL Cholesterol, Calculated 22 mg/dL (0-40) Non-HDL Cholesterol Calculated 168 mg/dL (0-129) HDL Cholesterol 66 mg/dL (40-60) Cholesterol/HDL Ratio 3.5 Thyroid Stimulating Hormone (TSH) 6.864 uIU/mL (0.358-3.74) Laboratory Tests Test 12/02/18 09:40 12/02/18 11:58 12/02/18 13:42 12/02/18 16:25 White Blood Count 7.6 x10^3/uL (4.0-11.0) Red Blood Count 4.71 x10^6/uL (3.50-5.40) Hemoglobin 12.9 g/dL (12.0-15.5) Hematocrit 38.7 % (36.0-47.0) Mean Corpuscular Volume 82 fL (79-100) Mean Corpuscular Hemoglobin 27 pg (25-35) Mean Corpuscular Hemoglobin Concent 33 g/dL (31-37) Red Cell Distribution Width 14.3 % (11.5-14.5) Platelet Count 304 x10^3/uL (140-400) Neutrophils (%) (Auto) 65 % (31-73) Lymphocytes (%) (Auto) 26 % (24-48) Monocytes (%) (Auto) 6 % (0-9) Eosinophils (%) (Auto) 2 % (0-3) Basophils (%) (Auto) 1 % (0-3) Neutrophils # (Auto) 4.9 x10^3/uL (1.8-7.7) Lymphocytes # (Auto) 2.0 x10^3/uL (1.0-4.8) Monocytes # (Auto) 0.5 x10^3/uL (0.0-1.1) Eosinophils # (Auto) 0.1 x10^3/uL (0.0-0.7) Basophils # (Auto) 0.1 x10^3/uL (0.0-0.2) Prothrombin Time 12.7 SEC (11.7-14.0) Prothromb Time International Ratio 1.0 (0.8-1.1) Sodium Level 138 mmol/L (136-145) Potassium Level 4.9 mmol/L (3.5-5.1) Chloride Level 99 mmol/L (98-107) Carbon Dioxide Level 31 mmol/L (21-32) Anion Gap 8 (6-14) Blood Urea Nitrogen 31 mg/dL (7-20) Creatinine 0.9 mg/dL (0.6-1.0) Estimated GFR (Cockcroft-Gault) 64.8 BUN/Creatinine Ratio 34 (6-20) Glucose Level 392 mg/dL (70-99) Calcium Level 10.0 mg/dL (8.5-10.1) Magnesium Level 1.5 mg/dL (1.8-2.4) Total Bilirubin 0.3 mg/dL (0.2-1.0) Aspartate Amino Transf (AST/SGOT) 13 U/L (15-37) Alanine Aminotransferase (ALT/SGPT) 22 U/L (14-59) Alkaline Phosphatase 94 U/L (46-116) Creatine Kinase 53 U/L (26-192) Creatine Kinase MB (Mass) 1.4 ng/mL (0.0-3.6) Creatine Kinase MB Relative Index % (0-4) Troponin I Quantitative < 0.017 ng/mL (0.000-0.055) < 0.017 ng/mL (0.000-0.055) < 0.017 ng/mL (0.000-0.055) RM-Jgx-U-Type Natriuretic Peptide 126 pg/mL (0-124) Total Protein 7.7 g/dL (6.4-8.2) Albumin 3.3 g/dL (3.4-5.0) Albumin/Globulin Ratio 0.8 (1.0-1.7) Lipase 240 U/L (73-393) Glucose (Fingerstick) 302 mg/dL (70-99) Test 12/02/18 17:25 12/02/18 21:24 12/03/18 02:25 12/03/18 05:55 Glucose (Fingerstick) 179 mg/dL (70-99) 192 mg/dL (70-99) 193 mg/dL (70-99) Sodium Level 139 mmol/L (136-145) Potassium Level 4.2 mmol/L (3.5-5.1) Chloride Level 102 mmol/L (98-107) Carbon Dioxide Level 29 mmol/L (21-32) Anion Gap 8 (6-14) Blood Urea Nitrogen 31 mg/dL (7-20) Creatinine 1.1 mg/dL (0.6-1.0) Estimated GFR (Cockcroft-Gault) 51.4 Glucose Level 218 mg/dL (70-99) Calcium Level 8.9 mg/dL (8.5-10.1) Magnesium Level 2.2 mg/dL (1.8-2.4) Triglycerides Level 109 mg/dL (0-150) Cholesterol Level 234 mg/dL (0-200) LDL Cholesterol, Calculated 146 mg/dL (0-100) VLDL Cholesterol, Calculated 22 mg/dL (0-40) Non-HDL Cholesterol Calculated 168 mg/dL (0-129) HDL Cholesterol 66 mg/dL (40-60) Cholesterol/HDL Ratio 3.5 Thyroid Stimulating Hormone (TSH) 6.864 uIU/mL (0.358-3.74) Medications Current Medications Nitroglycerin (Nitrostat) 0.4 mg PRN Q5MIN PRN SL CP RATING > 1/10 Last administered on 12/02/18at 09:59; Start 12/02/18 at 09:45; Stop 12/03/18 at 09:44 Sodium Chloride 500 ml @ 500 mls/hr 1X ONCE IV Last administered on 12/02/18at 10:11; Start 12/02/18 at 10:15; Stop 12/02/18 at 11:14; Status DC Fentanyl Citrate (Fentanyl 2ml Vial) 50 mcg 1X ONCE IV Last administered on 12/02/18at 10:44; Start 12/02/18 at 10:30; Stop 12/02/18 at 10:31; Status DC Magnesium Sulfate 50 ml @ 25 mls/hr 1X ONCE IV Last administered on 12/02/18 10:44; Start 12/02/18 at 10:45; Stop 12/02/18 at 12:44; Status DC Insulin Human Regular (HumuLIN R VIAL) 10 unit 1X ONCE SQ Last administered on 12/02/18at 10:44; Start 12/02/18 at 10:45; Stop 12/02/18 at 10:46; Status DC Gabapentin (Neurontin) 600 mg HS PO Last administered on 12/02/18 21:20; Start 12/02/18 at 21:00 Levothyroxine Sodium (Synthroid) 100 mcg DAILY06 PO ; Start 12/03/18 at 06:00 Amitriptyline HCl (Elavil) 100 mg QHS PO Last administered on 12/02/18 21:20; Start 12/02/18 at 21:00 Non-Formulary Medication (Lovastatin ) 10 mg HS PO ; Start 12/02/18 at 21:00; Status UNV Midodrine (Proamatine) 10 mg [id number] PO Last administered on 12/02/18at 17:50; Start 12/02/18 at 13:00 Acetaminophen (Tylenol) 500 mg QHS PO Last administered on 12/02/18 21:20; Start 12/02/18 at 21:00 Insulin Human Lispro (HumaLOG) 0-7 UNITS TIDWMEALS SQ Last administered on 12/02/18at 17:35; Start 12/02/18 at 12:30 Dextrose (Dextrose 50%-Water Syringe) 12.5 gm PRN Q15MIN PRN IV SEE COMMENTS; Start 12/02/18 at 12:15 Dextrose 250 ml PRN Q15MIN PRN IV SEE COMMENTS; Start 12/02/18 at 12:15 Magnesium Sulfate/ Dextrose 100 ml @ 100 mls/hr 1X ONCE IV Last administered on 12/02/18 12:40; Start 12/02/18 at 12:15; Stop 12/02/18 at 13:14; Status DC Diphenhydramine HCl (Benadryl) 25 mg QHS PO Last administered on 12/02/18 21:20; Start 12/02/18 at 21:00 Non-Formulary Medication 1 ea DAILY08 SQ ; Start 12/03/18 at 08:00; Stop 12/02/18 at 16:19; Status DC Fentanyl Citrate (Fentanyl 2ml Vial) 50 mcg PRN Q2HR PRN IV PAIN Last administered on 12/02/18at 16:48; Start 12/02/18 at 15:45 Multi-Ingredient Mouthwash/Gargle (Gi Cocktail) 20 ml PRN QID PRN PO CHEST PAIN; Start 12/02/18 at 15:45 Non-Formulary Medication 1 ea DAILY08 SQ Last administered on 12/02/18at 16:48; Start 12/02/18 at 16:30 Ondansetron HCl (Zofran) 4 mg PRN Q6HRS PRN IV NAUSEA/VOMITING Last administered on 12/02/18at 17:35; Start 12/02/18 at 17:15 Active Scripts Active Synthroid (Levothyroxine Sodium) 100 Mcg Tablet 100 Mcg PO DAILY06 Reported [Acetaminophen Pm] 1 Tab PO HS Novolog Flexpen (Insulin Aspart) 100 Unit/1 Ml Insuln.pen 1 Unit SQ TIDAC Midodrine Hcl 10 Mg Tablet 10 Mg PO TID Basaglar Kwikpen U-100 (Insulin Glargine,Hum.rec.anlog) 100 Unit/1 Ml Insuln.pen 30 Unit SQ DAILY08 Lovastatin 10 Mg Tablet 10 Mg PO HS Gabapentin (Gabapentin) 300 Mg Capsule 600 Mg PO HS Amitriptyline Hcl 100 Mg Tablet 1 Tab PO QHS Vitals/I & O Vital Sign - Last 24 Hours 12/02/18 12/02/18 12/02/18 12/02/18 09:28 09:35 09:58 09:59 Temp 98.7 98.7 Pulse 99 86 83 84 Resp 16 B/P (MAP) 130/85 (100) 130/79 (96) 151/85 (107) 151/85 Pulse Ox 100 98 O2 Delivery Room Air 12/02/18 12/02/18 12/02/18 12/02/18 10:04 10:08 10:11 10:28 Pulse 90 92 87 82 B/P (MAP) 64/57 (59) 76/52 (60) 102/69 (80) 143/96 (112) Pulse Ox 95 92 100 98 12/02/18 12/02/18 12/02/18 12/02/18 10:48 11:55 12:40 12:54 Temp 97.9 97.9 Pulse 84 84 84 Resp 18 B/P (MAP) 140/94 (109) 137/83 (101) 137/83 Pulse Ox 100 100 O2 Delivery Room Air Room Air 12/02/18 12/02/18 12/02/18 12/02/18 15:00 16:48 17:50 19:00 Temp 97.4 98.3 97.4 98.3 Pulse 82 82 84 Resp 16 18 14 B/P (MAP) 121/60 (80) 121/60 165/92 (116) Pulse Ox 98 100 O2 Delivery Room Air Room Air Room Air 12/02/18 12/02/18 12/03/18 20:00 23:00 03:00 Temp 98.5 97.9 98.5 97.9 Pulse 82 82 Resp 14 14 B/P (MAP) 120/75 (90) 128/72 (90) Pulse Ox 98 99 O2 Delivery Room Air Room Air Room Air Intake and Output 12/02/18 12/02/18 12/03/18 15:00 23:00 07:00 Intake Total 500 ml 640 ml 300 ml Output Total 2 ml 450 ml 700 ml Balance 498 ml 190 ml -400 ml JUAN PABLO WANG MD Dec 03, 2018 08:33
[2018-12-03] MEDS ORDERED: IV RINGERS,LACTATED 1000ML 1,000 ML IV ONE (09:00)
[2018-12-03] MEDS: MIDODRINE 5 MG TABLET PO SCH ×3 (09:02→18:16)
[2018-12-03] MEDS ORDERED: REGADENOSON 0.4 MG/5 ML DISP.SYRIN. IV ONE (09:15)
[2018-12-03 11:00] VITALS: BP 145/102
[2018-12-03] MEDS ORDERED: [UNRECOGNIZED DRUG - OTHER] SQ ONE (11:00)
--- NOTE | 2018-12-03 11:51 | PDOC ---
CARDIOLOGY PROGRESS NOTE SUBJECTIVE: Two episodes of orthostasis overnight. Profound hypotension. No bradycardia. No chest pain. No nausea or other issues associated with this. OBJECTIVE: Vital Signs/I&O: Vital Signs Date Time Temp Pulse Resp B/P (MAP) Pulse Ox O2 Delivery O2 Flow Rate FiO2 12/03/18 11:00 98.0 87 18 145/102 (116) 100 Room Air 98.0 I & O 12/02/18 12/02/18 12/03/18 14:59 22:59 06:59 Intake Total 500 ml 640 ml 300 ml Output Total 2 ml 400 ml 750 ml Balance 498 ml 240 ml -450 ml Objective: GEN.: No apparent distress. Alert and oriented. HEENT: Head is normocephalic, atraumatic NECK: Supple. LUNGS: Clear to auscultation. HEART: RRR, S1, S2 present. Peripheral pulses intact ABDOMEN: Soft, nontender. Positive bowel sounds. EXTREMITIES: Without any cyanosis. NEUROLOGIC: Normal speech, normal tone PSYCHIATRIC: Normal affect, normal mood. SKIN: No ulcerations CURRENT MEDICATIONS: Current Medications Medications (Trade) Dose Ordered Sig/[place] Route PRN Reason Start Time Stop Time Status Last Admin Dose Admin Gabapentin (Neurontin) 600 mg HS PO 12/02/18 21:00 12/02/18 21:20 Levothyroxine Sodium (Synthroid) 100 mcg DAILY06 PO 12/03/18 06:00 12/03/18 09:17 Amitriptyline HCl (Elavil) 100 mg QHS PO 12/02/18 21:00 12/02/18 21:20 Midodrine (Proamatine) 10 mg [id number] PO 12/02/18 13:00 12/03/18 09:12 Acetaminophen (Tylenol) 500 mg QHS PO 12/02/18 21:00 12/02/18 21:20 Insulin Human Lispro (HumaLOG) 0-7 UNITS TIDWMEALS SQ 12/02/18 12:30 12/02/18 17:35 Magnesium Sulfate/ Dextrose 100 ml @ 100 mls/hr 1X ONCE IV 12/02/18 12:15 12/02/18 13:14 DC 12/02/18 12:40 Diphenhydramine HCl (Benadryl) 25 mg QHS PO 12/02/18 21:00 12/02/18 21:20 Fentanyl Citrate (Fentanyl 2ml Vial) 50 mcg PRN Q2HR PRN IV PAIN 12/02/18 15:45 12/02/18 16:48 Non-Formulary Medication 1 ea DAILY08 SQ 12/02/18 16:30 12/03/18 10:58 DC 12/02/18 16:48 Ondansetron HCl (Zofran) 4 mg PRN Q6HRS PRN IV NAUSEA/VOMITING 12/02/18 17:15 12/02/18 17:35 Ringer's Solution 1,000 ml @ 75 mls/hr 1X ONCE IV 12/03/18 09:00 12/03/18 22:19 12/03/18 09:12 DIAGNOSTIC TESTING: No acute events on tele. Labs: Labs reviewed. ASSESSMENT: 1. Severe adrenal insufficiency is possibility but apparently not consistent by labs according to outpt endo, likely with orthostasis and multifactorial with DM2 2. Possible CAD with prior anteroseptal infarct by EKG but no acute issues with normal echo PLAN: 1. Normal echo in 08/2018. No further CV testing needed. No indication for pacer 2. Continue mgmt per PCP. Pls call with questions. Discussed with Dr. Humphrey. Thanks LISETTE COHEN MD Dec 03, 2018 11:51
[2018-12-03 14:58] VITALS: BP 117/64
[2018-12-03] MEDS ORDERED: INSULIN LISPRO 300 UNITS/3 ML INSULN.PEN. SQ ONE (15:45)
[2018-12-03] MEDS ORDERED: PRED20TA PO (16:02)
--- NOTE | 2018-12-03 16:13 | PDOC3 ---
Discharge Summary Visit Information Date of Admission: Dec 02, 2018 Date of Discharge: Dec 03, 2018 Admitting Diagnosis: Acute chest pain Final Diagnosis Problems Medical Problems: (1) Acute chest pain Status: Acute (2) Hyperglycemia Status: Acute (3) Hypomagnesemia Status: Acute (4) Uncontrolled diabetes mellitus Status: Acute Brief Hospital Course Allergies Allergies Coded Allergies Type Severity Reaction Last Updated Verified atorvastatin Allergy Severe throat swells 10/13/18 Yes ciprofloxacin Allergy Severe "THROAT CLOSES UP" ANAPHYLAXIS 10/13/18 Yes hydroxyzine Allergy Severe DIZZINESS, "I FEEL LIKE IM DRUNK" 10/13/18 Yes raspberry Allergy Severe CHOKING SENSATION IN THROAT 10/13/18 Yes tramadol Allergy Severe VOMITING 10/13/18 Yes amoxicillin Allergy Intermediate 10/13/18 Yes aspirin Allergy Intermediate 10/13/18 Yes cephalexin Allergy Intermediate 10/13/18 Yes codeine Allergy Intermediate 10/13/18 Yes ibuprofen Allergy Intermediate 10/13/18 Yes morphine Allergy Intermediate 10/13/18 Yes simvastatin Allergy Intermediate 10/13/18 Yes sucralose Allergy Intermediate 11/09/18 Yes lidocaine Allergy Mild 12/02/18 Yes pregabalin Allergy Mild vomiting 10/13/18 Yes Vital Signs Vital Signs Date Time Temp Pulse Resp B/P (MAP) Pulse Ox O2 Delivery O2 Flow Rate FiO2 12/03/18 14:58 98.4 94 18 117/64 (81) 99 Room Air 98.4 Lab Results Laboratory Tests Test 12/02/18 09:40 12/02/18 11:58 12/02/18 13:42 12/02/18 16:25 White Blood Count 7.6 x10^3/uL (4.0-11.0) Red Blood Count 4.71 x10^6/uL (3.50-5.40) Hemoglobin 12.9 g/dL (12.0-15.5) Hematocrit 38.7 % (36.0-47.0) Mean Corpuscular Volume 82 fL (79-100) Mean Corpuscular Hemoglobin 27 pg (25-35) Mean Corpuscular Hemoglobin Concent 33 g/dL (31-37) Red Cell Distribution Width 14.3 % (11.5-14.5) Platelet Count 304 x10^3/uL (140-400) Neutrophils (%) (Auto) 65 % (31-73) Lymphocytes (%) (Auto) 26 % (24-48) Monocytes (%) (Auto) 6 % (0-9) Eosinophils (%) (Auto) 2 % (0-3) Basophils (%) (Auto) 1 % (0-3) Neutrophils # (Auto) 4.9 x10^3/uL (1.8-7.7) Lymphocytes # (Auto) 2.0 x10^3/uL (1.0-4.8) Monocytes # (Auto) 0.5 x10^3/uL (0.0-1.1) Eosinophils # (Auto) 0.1 x10^3/uL (0.0-0.7) Basophils # (Auto) 0.1 x10^3/uL (0.0-0.2) Prothrombin Time 12.7 SEC (11.7-14.0) Prothromb Time International Ratio 1.0 (0.8-1.1) Sodium Level 138 mmol/L (136-145) Potassium Level 4.9 mmol/L (3.5-5.1) Chloride Level 99 mmol/L (98-107) Carbon Dioxide Level 31 mmol/L (21-32) Anion Gap 8 (6-14) Blood Urea Nitrogen 31 mg/dL (7-20) Creatinine 0.9 mg/dL (0.6-1.0) Estimated GFR (Cockcroft-Gault) 64.8 BUN/Creatinine Ratio 34 (6-20) Glucose Level 392 mg/dL (70-99) Calcium Level 10.0 mg/dL (8.5-10.1) Magnesium Level 1.5 mg/dL (1.8-2.4) Total Bilirubin 0.3 mg/dL (0.2-1.0) Aspartate Amino Transf (AST/SGOT) 13 U/L (15-37) Alanine Aminotransferase (ALT/SGPT) 22 U/L (14-59) Alkaline Phosphatase 94 U/L (46-116) Creatine Kinase 53 U/L (26-192) Creatine Kinase MB (Mass) 1.4 ng/mL (0.0-3.6) Creatine Kinase MB Relative Index % (0-4) Troponin I Quantitative < 0.017 ng/mL (0.000-0.055) < 0.017 ng/mL (0.000-0.055) < 0.017 ng/mL (0.000-0.055) AM-Hrq-A-Type Natriuretic Peptide 126 pg/mL (0-124) Total Protein 7.7 g/dL (6.4-8.2) Albumin 3.3 g/dL (3.4-5.0) Albumin/Globulin Ratio 0.8 (1.0-1.7) Lipase 240 U/L (73-393) Glucose (Fingerstick) 302 mg/dL (70-99) Test 12/02/18 17:25 12/02/18 21:24 12/03/18 02:25 12/03/18 05:55 Glucose (Fingerstick) 179 mg/dL (70-99) 192 mg/dL (70-99) 193 mg/dL (70-99) Sodium Level 139 mmol/L (136-145) Potassium Level 4.2 mmol/L (3.5-5.1) Chloride Level 102 mmol/L (98-107) Carbon Dioxide Level 29 mmol/L (21-32) Anion Gap 8 (6-14) Blood Urea Nitrogen 31 mg/dL (7-20) Creatinine 1.1 mg/dL (0.6-1.0) Estimated GFR (Cockcroft-Gault) 51.4 Glucose Level 218 mg/dL (70-99) Calcium Level 8.9 mg/dL (8.5-10.1) Magnesium Level 2.2 mg/dL (1.8-2.4) Triglycerides Level 109 mg/dL (0-150) Cholesterol Level 234 mg/dL (0-200) LDL Cholesterol, Calculated 146 mg/dL (0-100) VLDL Cholesterol, Calculated 22 mg/dL (0-40) Non-HDL Cholesterol Calculated 168 mg/dL (0-129) HDL Cholesterol 66 mg/dL (40-60) Cholesterol/HDL Ratio 3.5 Thyroid Stimulating Hormone (TSH) 6.864 uIU/mL (0.358-3.74) Test 12/03/18 08:06 12/03/18 12:03 12/03/18 14:48 12/03/18 15:23 Glucose (Fingerstick) 247 mg/dL (70-99) 179 mg/dL (70-99) 396 mg/dL (70-99) 396 mg/dL (70-99) Laboratory Tests Test 12/02/18 16:25 12/02/18 17:25 12/02/18 21:24 12/03/18 02:25 Troponin I Quantitative < 0.017 ng/mL (0.000-0.055) Glucose (Fingerstick) 179 mg/dL (70-99) 192 mg/dL (70-99) 193 mg/dL (70-99) Test 12/03/18 05:55 12/03/18 08:06 12/03/18 12:03 12/03/18 14:48 Sodium Level 139 mmol/L (136-145) Potassium Level 4.2 mmol/L (3.5-5.1) Chloride Level 102 mmol/L (98-107) Carbon Dioxide Level 29 mmol/L (21-32) Anion Gap 8 (6-14) Blood Urea Nitrogen 31 mg/dL (7-20) Creatinine 1.1 mg/dL (0.6-1.0) Estimated GFR (Cockcroft-Gault) 51.4 Glucose Level 218 mg/dL (70-99) Calcium Level 8.9 mg/dL (8.5-10.1) Magnesium Level 2.2 mg/dL (1.8-2.4) Triglycerides Level 109 mg/dL (0-150) Cholesterol Level 234 mg/dL (0-200) LDL Cholesterol, Calculated 146 mg/dL (0-100) VLDL Cholesterol, Calculated 22 mg/dL (0-40) Non-HDL Cholesterol Calculated 168 mg/dL (0-129) HDL Cholesterol 66 mg/dL (40-60) Cholesterol/HDL Ratio 3.5 Thyroid Stimulating Hormone (TSH) 6.864 uIU/mL (0.358-3.74) Glucose (Fingerstick) 247 mg/dL (70-99) 179 mg/dL (70-99) 396 mg/dL (70-99) Test 12/03/18 15:23 Glucose (Fingerstick) 396 mg/dL (70-99) Brief Hospital Course Ms Wright is a 58 year old female w/ PMHx HTN, diabetes mellitus, prior CVA, hyperthyroidism who presents to the ED today complaining of dizziness and generalized weakness since yesterday as well as chest pain. She was hypotensive after NTG. She states today she was at work at the [employer] and a it security project manager was walking around and informed her she didn't look right and called 911. Patient denies anything specific and exacerbating or relieving her symptoms. Denies any chest pain or shortness of breath, but notes it feels like she can't get a deep breath, been treated recently for pleurisy with improvement with steroids on multiple occasions, apparently outpatient adrenal insufficiency testing has been negative. S/p total thyroidectomy on 10/13/18 on replacement now. On ROS she notes recent weakness and weight loss. Mag was profoundly low 1.5. Having dizziness and severe orthostasis x2, though she has had orthostasis for months, then when recumbent has SBP in 180s. Had negative tilt table testing in the past. She has family history of CAD. Rates her symptoms at 10/10. We gave her some nitroglycerin; that helped but it dropped her pressure a little too much. Seen by cardiology again, echo WNL, troponins negative. 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 Previously she was on cortef and florinef with her hearing instrument specialist as well as midodrine, however has been off these since March when he retired. DM - unclear if she is type 1. States she sees Dr. Chicas at [facility] through [facility]. 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 K and mag replaced here. Likely her hypokalemia and hypomagnesemia are 2/2 RTA rather than addisons Hypokalemia - likely RTA or addisonian Hypomagnesemia - replete now Chest tightness - with improvement laying forward, negative echo and negative for friction rub, will send out on prednisone for pleuritic chest pain treatment Abnormal weight loss - now she notes she intentionally lost much of this weight Hypotension - she is on midodrine. Has very slow autonomic response. She possibly has autonomic neuropathy from her poorly controlled diabetic history. Will f/u with neurology at some point Multiple ulcers - she claims they are due to falls, they appear vascular to me. Greater than 30 minutes spent on discharge Discharge Information Condition at Discharge: Improved Follow Up: Weeks (1) Disposition/Orders: D/C to Home Scheduled Amitriptyline Hcl (Amitriptyline Hcl) 100 Mg Tablet, 1 TAB PO QHS for neuropathy, (Reported) Entered as Reported by: INNA SETHI on 06/07/182234 Last Action: Converted on 12/02/181205 by JORGE LUIS MENDEZ Gabapentin (Gabapentin ) 300 Mg Capsule, 600 MG PO HS for NEUROGENIC PAIN, (Reported) Entered as Reported by: INNA SETHI on 06/07/182234 Last Action: Continued on 12/02/181205 by JORGE LUIS MENDEZ Insulin Aspart (Novolog Flexpen) 100 Unit/1 Ml Insuln.pen, 1 UNIT SQ TIDAC for diabetes, (Reported) Entered as Reported by: RHETT CASTELLON on 09/23/18 1408 Last Action: Converted on 12/03/181048 by JUAN PABLO WANG MD Insulin Glargine,Hum.rec.anlog (Basaglar Kwikpen U-100) 100 Unit/1 Ml Insuln.pen, 30 UNIT SQ DAILY08 for Diabetes, (Reported) Entered as Reported by: LEVI COLLIER on 09/12/182158 Last Action: Continued on 12/03/181048 by JUAN PABLO WANG MD Levothyroxine Sodium (Synthroid) 100 Mcg Tablet, 100 MCG PO DAILY06 for s/p thyroidectomy , #30 Ref 0 Prescribed by: Ginette Cao on 10/14/18 0958 Last Action: Continued on 12/02/181205 by JORGE LUIS MENDEZ Lovastatin (Lovastatin) 10 Mg Tablet, 10 MG PO HS for cholsterol, (Reported) Entered as Reported by: Lucho Loya on 08/23/182143 Last Action: Converted on 12/02/181205 by JORGE LUIS MENDEZ Midodrine Hcl (Midodrine Hcl) 10 Mg Tablet, 10 MG PO TID for BP, (Reported) Entered as Reported by: RHETT CASTELLON on 09/23/18 1320 Last Action: Converted on 12/02/181205 by JORGE LUIS MENDEZ Prednisone (Prednisone) 20 Mg Tablet, 1 TAB PO DAILY for Pleurisy for 5 Days, #5 Prescribed by: JUAN PABLO WANG MD on 12/03/18 1602 [Acetaminophen Pm] , 1 TAB PO HS for insomnia , (Reported) Entered as Reported by: VIKKI FATIMA on 10/12/18 0901 Last Action: Converted on 12/02/18 1206 by JUAN PABLO CORTEZ MD Dec 03, 2018 16:13
[2018-12-03 18:16] VITALS: BP 117/64
--- NOTE | 2018-12-03 18:29 | NUR ---
Pt discharged to home, all discharge orders reviewed with pt. Script for Prednisone called into pharmacy prior to discharge. Pt denies further needs at time of discharge. Pt assisted to car via wheelchair with staff and sister. Pt alert and oriented at time of discharge.
[2018-12-04] MEDS ORDERED: [UNRECOGNIZED DRUG - OTHER] SQ SCH (08:00)
[2018-12-04] MEDS ORDERED: INSULIN GLARGINE 300 UNITS/3 ML INSULN.PEN. SQ SCH (08:00)
[2018-12-05 20:11] LABS: ANA INTERP Negative (.)
== END 2018-12-03 18:33 | disposition home or self-care (01) | DRG 638 ==
LOC: ER 09:26 → 2 SOUTH 10:00
PROVIDERS: ADMIT Internal Medicine; ATTEND Internal Medicine
DX: E11.65 Type 2 diabetes mellitus with hyperglycemia (principal); E27.1 Primary adrenocortical insufficiency; R07.89 Other chest pain; E11.40 Type 2 diabetes mellitus with diabetic neuropathy, unspecified; E11.43 Type 2 diabetes mellitus with diabetic autonomic (poly)neuropathy; E78.00 Pure hypercholesterolemia, unspecified; E78.5 Hyperlipidemia, unspecified; E83.42 Hypomagnesemia; E87.6 Hypokalemia; I95.9 Hypotension, unspecified; E89.0 Postprocedural hypothyroidism; M19.90 Unspecified osteoarthritis, unspecified site; I10 Essential (primary) hypertension; I25.2 Old myocardial infarction; J39.8 Other specified diseases of upper respiratory tract; J44.9 Chronic obstructive pulmonary disease, unspecified; R13.10 Dysphagia, unspecified; Z79.4 Long term (current) use of insulin; Z82.49 Family history of ischemic heart disease and other diseases of the circulatory system; Z86.73 Personal history of transient ischemic attack (TIA), and cerebral infarction without residual deficits; Z83.3 Family history of diabetes mellitus; N25.89 Other disorders resulting from impaired renal tubular function
CPT/HCPCS: 36415; 71045; 80048; 80053; 80061; 82533; 82553; 82962; 83690; 83735; 83880; 84443; 84484; 85025; 85610; 86038; 93005; 96361; 96365; 96372; 96375; J1815; J2405; J3010; J3475; J7040; J7120; Q0163; 99285-25; G0378

== ENCOUNTER 2018-12-30 08:08 | Emergency (ER) | payer OTHER ==
[~2018-12-30] VITALS: Ht 175.3 cm; Wt 68.0 kg
[2018-12-30] MEDS ORDERED: HYDROcodone/APAP 5/325MG 1 TAB TABLET PO ONE (08:30)
[2018-12-30] MEDS ORDERED: CYCLOBENZAPRINE 10 MG TABLET. PO ONE (08:30)
[2018-12-30] MEDS ORDERED: predniSONE 10 MG TABLET PO ONE (08:30)
--- NOTE | 2018-12-30 08:47 | RAD ---
Pelvis and left Two View hip: Clinical History: Pain. Technique: AP view the pelvis AP and frog leg views of the left hip were obtained. Comparison: None. Findings: There is obscuration of bony detail of sacrum due to overlying bowel gas. The visualized osseous structures appear normal. The femoral acetabular relationship is normal. Fracture Impression: No acute findings. Electronically signed by: Matt Beltre III, MD (12/30/2018 8:44 AM) [id number]
--- NOTE | 2018-12-30 08:50 | PHYS DOC ---
Past Medical History Past Medical History: Diabetes-Type I, High Cholesterol, Hypothyroid, Hyp otension, Stroke, Other Additional Past Medical Histor: NEUROPATHY Past Surgical History: Other Additional Past Surgical Histo: L BREAST L FOOT R KNEE Alcohol Use: None Drug Use: None Adult General Chief Complaint Chief Complaint: HIP PAIN HPI HPI Patient is a 58 year old female with history of diabetes type 1, hypertension, high cholesterol, who presents to the ED today complaining of 8 out of 10 sharp left hip pain radiating to the left lower extremity that has been going on for a couple weeks. Patient states she's had recent multiple falls and has been seen by the PCP for them. She is also following up with orthopedic doctor. She states her PCP put her on gabapentin which is not helping with the pain. Patient denies any numbness or tingling to bilateral lower extremities. Denies any loss of bowel bladder function. She states most of the pain is on ambulation. Review of Systems Review of Systems Constitutional: Denies fever or chills [] GI: Denies abdominal pain, nausea, vomiting, bloody stools or diarrhea [] : Denies dysuria or hematuria [] Musculoskeletal: Reports left hip pain, denies back pain. Integument: Denies rash or skin lesions [] Neurologic: Denies headache, focal weakness or sensory changes [] All other systems were reviewed and found to be within normal limits, except as documented in this note. Current Medications Current Medications Current Medications Medications (Trade) Dose Ordered Sig/[place] Start Time Stop Time Status Last Admin Dose Admin Acetaminophen/ Hydrocodone Bitart (Lortab 5/325) 1 tab 1X ONCE 12/30/18 08:30 12/30/18 08:31 DC 12/30/18 08:47 1 TAB Cyclobenzaprine HCl (Flexeril) 10 mg 1X ONCE 12/30/18 08:30 12/30/18 08:31 DC 12/30/18 08:47 10 MG Prednisone (Prednisone) 50 mg 1X ONCE 12/30/18 08:30 12/30/18 08:31 DC 12/30/18 08:47 50 MG Allergies Allergies Allergies Coded Allergies Type Severity Reaction Last Updated Verified atorvastatin Allergy Severe throat swells 10/13/18 Yes ciprofloxacin Allergy Severe "THROAT CLOSES UP" ANAPHYLAXIS 10/13/18 Yes hydroxyzine Allergy Severe DIZZINESS, "I FEEL LIKE IM DRUNK" 10/13/18 Yes raspberry Allergy Severe CHOKING SENSATION IN THROAT 10/13/18 Yes tramadol Allergy Severe VOMITING 10/13/18 Yes amoxicillin Allergy Intermediate 10/13/18 Yes aspirin Allergy Intermediate 10/13/18 Yes cephalexin Allergy Intermediate 10/13/18 Yes codeine Allergy Intermediate 10/13/18 Yes ibuprofen Allergy Intermediate 10/13/18 Yes morphine Allergy Intermediate 10/13/18 Yes simvastatin Allergy Intermediate 10/13/18 Yes sucralose Allergy Intermediate 11/09/18 Yes lidocaine Allergy Mild 12/02/18 Yes pregabalin Allergy Mild vomiting 10/13/18 Yes Physical Exam Physical Exam Constitutional: Well developed, well nourished, no acute distress, non-toxic appearance. [] Skin: Warm, dry, no erythema, no rash. [] Back: No tenderness, no CVA tenderness. [] Extremities: No tenderness, no cyanosis, no clubbing, ROM intact, no edema. [] Neurologic: Alert and oriented X 3, normal motor function, normal sensory function, no focal deficits noted. [] Psychologic: Affect normal, judgement normal, mood normal. [] Current Patient Data Vital Signs Vital Signs Date Time Temp Pulse Resp B/P (MAP) Pulse Ox O2 Delivery O2 Flow Rate FiO2 12/30/18 08:47 96 Room Air 12/30/18 08:15 97.9 92 16 100/59 (73) 97.9 EKG EKG [] Radiology/Procedures Radiology/Procedures [] Course & Med Decision Making Course & Med Decision Making Pertinent Labs and Imaging studies reviewed. (See chart for details) This is a 58-year-old female patient presented to the ED today complaining of left hip pain that has been going on for weeks. Has been seen at the PCP for the same complaint. Has had multiple falls frequently and is following up with the primary care doctor for the she herself requested hip x-rays. Left hip x-rays including pelvis are negative for any acute findings. Patient was discharged to home. Follow-up with PCP as well as orthopedic doctor in one week. Dragon Disclaimer Dragon Disclaimer This electronic medical record was generated, in whole or in part, using a voice recognition dictation system. Departure Departure Impression: Primary Impression: Left hip pain Disposition: HOME, SELF-CARE Condition: STABLE Referrals: ROWENA CUNNINGHAM MD (PCP) Follow up in one week Patient Instructions: Hip Pain Additional Instructions: You were see for left hip pain. Please continue following up with orthopedic doctor as well as your primary care doctor Scripts Cyclobenzaprine Hcl (CYCLOBENZAPRINE HCL) 10 Mg Tablet 1 TAB PO TID, #30 TAB Prov: SHARONDA DIAZ APRN 12/30/18 Hydrocodone/Apap 5-325 (NORCO 5-325 TABLET) 1 Each Tablet 0.5 TAB PO Q6-8HRS PRN for PAIN, #6 TAB Prov: SHARONDA DIAZ APRN 12/30/18 SHARONDA DIAZ APRN Dec 30, 2018 08:50
[2018-12-30] MEDS ORDERED: CYCL10TA2 PO (09:03)
[2018-12-30] MEDS ORDERED: HYDR-3164 PO (09:03)
[2018-12-30 09:17] VITALS: BP 104/59
== END 2018-12-30 09:19 | disposition home or self-care (01) ==
LOC: ER 08:08
DX: M25.552 Pain in left hip (principal); M79.605 Pain in left leg; E10.40 Type 1 diabetes mellitus with diabetic neuropathy, unspecified; E03.9 Hypothyroidism, unspecified; E78.00 Pure hypercholesterolemia, unspecified; Z86.73 Personal history of transient ischemic attack (TIA), and cerebral infarction without residual deficits; Z88.1 Allergy status to other antibiotic agents; Z88.6 Allergy status to analgesic agent; Z88.4 Allergy status to anesthetic agent; Z88.5 Allergy status to narcotic agent; Z88.8 Allergy status to other drugs, medicaments and biological substances
CPT/HCPCS: 73502; 99284; J7512

== ENCOUNTER 2019-02-16 16:19 | Inpatient (IN) | payer OTHER ==
[~2019-02-16] VITALS: Ht 175.3 cm; Wt 70.3 kg
[~2019-02-16 16:19] MED LIST changes: +AMIT25TA PO; +CEFD300C PO; +CYCL10TA2 PO; +LACT1CAP19 PO; +PANT40TA77 PO
[2019-02-16] MEDS ORDERED: IV NORMAL SALINE 1000ML BAG 1,000 ML IV ONE ×4 (16:45→19:00)
[2019-02-16 16:49] LABS: BASO # 0.1 x10^3/uL (0.0-0.2); BASO % 1 % (0-3); EOS # 0.3 x10^3/uL (0.0-0.7); EOS % 3 % (0-3); HEMATOCRIT 41.6 % (36.0-47.0); HEMOGLOBIN 13.8 g/dL (12.0-15.5); LYMPH # 3.4 x10^3/uL (1.0-4.8); LYMPH % 38 % (24-48); MEAN CORPUSCULAR HEMOGLOBIN 27 pg (25-35); MEAN CORPUSCULAR HGB CONC 33 g/dL (31-37); MEAN CORPUSCULAR VOLUME 82 fL (79-100); MONO # 0.5 x10^3/uL (0.0-1.1); MONO % 6 % (0-9); NEUT # 4.5 x10^3/uL (1.8-7.7); NEUT % 52 % (31-73); PLATELET COUNT 309 x10^3/uL (140-400); RED BLOOD COUNT 5.07 x10^6/uL (3.50-5.40); RED CELL DISTRIBUTION WIDTH 13.7 % (11.5-14.5); WHITE BLOOD COUNT 8.8 x10^3/uL (4.0-11.0)
[2019-02-16 16:58] LABS: CALCIUM 9.3 mg/dL (8.5-10.1); CREATININE 1.3 mg/dL (0.6-1.0); GFR 42.4; POTASSIUM 3.9 mmol/L (3.5-5.1)
--- NOTE | 2019-02-16 17:00 | PHYS DOC ---
Past Medical History Past Medical History: Diabetes-Type I, High Cholesterol, Hypothyroid, Hypotension, Stroke, Other Additional Past Medical Histor: NEUROPATHY, ORTHOSTATIC HYPOTENSION (SHARONDA DIAZ APRN) Past Surgical History: Other Additional Past Surgical Histo: L BREAST L FOOT R KNEE (SHARONDA DIAZ APRN) Alcohol Use: None Drug Use: None (SHARONDA DIAZ APRN) Adult General Chief Complaint Chief Complaint: SYNCOPE HPI HPI Patient is a 58 year old female with history of diabetes type 1, hypertension, syncope episodes, high cholesterol, CVA, thyroid mass with thyroidectomy around September who presents to the ED today complaining of hypertension for the last 4 days. She states her blood pressures have been running in the 50s over 20s. She states she was using the wrist blood pressure monitor. She believes the machine could be broken. She states today she had four syncope episodes which was concerning to her. She states she's never had that many syncope episodes in a day. Denies any chest pain, denies any shortness of breath. She states her symptoms are worse when she is up. (SHARONDA DIAZ APRN) Review of Systems Review of Systems Constitutional: Denies fever or chills [] Eyes: Denies change in visual acuity, redness, or eye pain [] HENT: Denies nasal congestion or sore throat [] Respiratory: Denies cough or shortness of breath [] Cardiovascular: Reports hypertension GI: Denies abdominal pain, nausea, vomiting, bloody stools or diarrhea [] : Denies dysuria or hematuria [] Musculoskeletal: Denies back pain or joint pain [] Integument: Denies rash or skin lesions [] Neurologic: Reports syncope. Denies headache, focal weakness or sensory changes [] All other systems were reviewed and found to be within normal limits, except as documented in this note. (SHARONDA DIAZ APRN) Current Medications Current Medications Current Medications Medications (Trade) Dose Ordered Sig/[place] Start Time Stop Time Status Last Admin Dose Admin Acetaminophen (Tylenol) 650 mg PRN Q4HRS PRN 02/16/19 18:00 02/17/19 17:59 Ondansetron HCl (Zofran) 4 mg PRN Q8HRS PRN 02/16/19 18:00 02/17/19 17:59 Sodium Chloride 1,000 ml @ 150 mls/hr 1X ONCE 02/16/19 19:00 02/17/19 01:39 (PAXTON RATLIFF MD) Allergies Allergies Allergies Coded Allergies Type Severity Reaction Last Updated Verified atorvastatin Allergy Severe throat swells 10/13/18 Yes ciprofloxacin Allergy Severe "THROAT CLOSES UP" ANAPHYLAXIS 10/13/18 Yes hydroxyzine Allergy Severe DIZZINESS, "I FEEL LIKE IM DRUNK" 10/13/18 Yes raspberry Allergy Severe CHOKING SENSATION IN THROAT 10/13/18 Yes tramadol Allergy Severe VOMITING 10/13/18 Yes amoxicillin Allergy Intermediate 10/13/18 Yes aspirin Allergy Intermediate 10/13/18 Yes cephalexin Allergy Intermediate 10/13/18 Yes codeine Allergy Intermediate 10/13/18 Yes ibuprofen Allergy Intermediate 10/13/18 Yes morphine Allergy Intermediate 10/13/18 Yes simvastatin Allergy Intermediate 10/13/18 Yes sucralose Allergy Intermediate 11/09/18 Yes lidocaine Allergy Mild 12/02/18 Yes pregabalin Allergy Mild vomiting 10/13/18 Yes (PAXTON RATLIFF MD) Physical Exam Physical Exam Constitutional: Well developed, well nourished, no acute distress, non-toxic appearance. [] HENT: Normocephalic, atraumatic, bilateral external ears normal, oropharynx m oist, no oral exudates, nose normal. [] Eyes: PERRLA, EOMI, conjunctiva normal, no discharge. [] Neck: Old healed surgical scar noted on the anterior cervical spine area. Normal range of motion, no tenderness, supple, no stridor. [] Cardiovascular:Heart rate regular rhythm, no murmur [] Lungs & Thorax: Bilateral breath sounds clear to auscultation [] Abdomen: Bowel sounds normal, soft, no tenderness, no masses, no pulsatile masses. [] Skin: Warm, dry, no erythema, no rash. [] Back: No tenderness, no CVA tenderness. [] Extremities: No tenderness, no cyanosis, no clubbing, ROM intact, no edema. [] Neurologic: Alert and oriented X 3, normal motor function, normal sensory function, no focal deficits noted. Cranial nerves II through XII intact Psychologic: Affect normal, judgement normal, mood normal. [] (SHARONDA DIAZ APRN) Current Patient Data Vital Signs Vital Signs Date Time Temp Pulse Resp B/P (MAP) Pulse Ox O2 Delivery O2 Flow Rate FiO2 02/16/19 16:31 97.7 82 20 98/57 (71) 98 Room Air 97.7 (PAXTON RATLIFF MD) Lab Values Laboratory Tests Test 02/16/19 16:35 White Blood Count 8.8 x10^3/uL (4.0-11.0) Red Blood Count 5.07 x10^6/uL (3.50-5.40) Hemoglobin 13.8 g/dL (12.0-15.5) Hematocrit 41.6 % (36.0-47.0) Mean Corpuscular Volume 82 fL (79-100) Mean Corpuscular Hemoglobin 27 pg (25-35) Mean Corpuscular Hemoglobin Concent 33 g/dL (31-37) Red Cell Distribution Width 13.7 % (11.5-14.5) Platelet Count 309 x10^3/uL (140-400) Neutrophils (%) (Auto) 52 % (31-73) Lymphocytes (%) (Auto) 38 % (24-48) Monocytes (%) (Auto) 6 % (0-9) Eosinophils (%) (Auto) 3 % (0-3) Basophils (%) (Auto) 1 % (0-3) Neutrophils # (Auto) 4.5 x10^3/uL (1.8-7.7) Lymphocytes # (Auto) 3.4 x10^3/uL (1.0-4.8) Monocytes # (Auto) 0.5 x10^3/uL (0.0-1.1) Eosinophils # (Auto) 0.3 x10^3/uL (0.0-0.7) Basophils # (Auto) 0.1 x10^3/uL (0.0-0.2) Sodium Level 137 mmol/L (136-145) Potassium Level 3.9 mmol/L (3.5-5.1) Chloride Level 99 mmol/L (98-107) Carbon Dioxide Level 33 mmol/L (21-32) H Anion Gap 5 (6-14) L Blood Urea Nitrogen 37 mg/dL (7-20) H Creatinine 1.3 mg/dL (0.6-1.0) H Estimated GFR (Cockcroft-Gault) 42.4 BUN/Creatinine Ratio 28 (6-20) H Glucose Level 290 mg/dL (70-99) H Calcium Level 9.3 mg/dL (8.5-10.1) Magnesium Level 1.9 mg/dL (1.8-2.4) Total Bilirubin 0.3 mg/dL (0.2-1.0) Aspartate Amino Transferase (AST) 14 U/L (15-37) L Alanine Aminotransferase (ALT) 15 U/L (14-59) Alkaline Phosphatase 86 U/L (46-116) Creatine Kinase 88 U/L (26-192) Creatine Kinase MB (Mass) 1.2 ng/mL (0.0-3.6) Creatine Kinase MB Relative Index 1.4 % (0-4) Troponin I Quantitative < 0.017 ng/mL (0.000-0.055) GO-Qks-V-Type Natriuretic Peptide 244 pg/mL (0-124) H Total Protein 7.6 g/dL (6.4-8.2) Albumin 3.6 g/dL (3.4-5.0) Albumin/Globulin Ratio 0.9 (1.0-1.7) L Thyroid Stimulating Hormone (TSH) 36.085 uIU/mL (0.358-3.74) H Laboratory Tests 02/16/19 16:35 Laboratory Tests 02/16/19 16:35 (PAXTON RATLIFF MD) Lab Values Laboratory Tests Test 02/16/19 16:35 White Blood Count 8.8 x10^3/uL (4.0-11.0) Red Blood Count 5.07 x10^6/uL (3.50-5.40) Hemoglobin 13.8 g/dL (12.0-15.5) Hematocrit 41.6 % (36.0-47.0) Mean Corpuscular Volume 82 fL (79-100) Mean Corpuscular Hemoglobin 27 pg (25-35) Mean Corpuscular Hemoglobin Concent 33 g/dL (31-37) Red Cell Distribution Width 13.7 % (11.5-14.5) Platelet Count 309 x10^3/uL (140-400) Neutrophils (%) (Auto) 52 % (31-73) Lymphocytes (%) (Auto) 38 % (24-48) Monocytes (%) (Auto) 6 % (0-9) Eosinophils (%) (Auto) 3 % (0-3) Basophils (%) (Auto) 1 % (0-3) Neutrophils # (Auto) 4.5 x10^3/uL (1.8-7.7) Lymphocytes # (Auto) 3.4 x10^3/uL (1.0-4.8) Monocytes # (Auto) 0.5 x10^3/uL (0.0-1.1) Eosinophils # (Auto) 0.3 x10^3/uL (0.0-0.7) Basophils # (Auto) 0.1 x10^3/uL (0.0-0.2) Sodium Level 137 mmol/L (136-145) Potassium Level 3.9 mmol/L (3.5-5.1) Chloride Level 99 mmol/L (98-107) Carbon Dioxide Level 33 mmol/L (21-32) H Anion Gap 5 (6-14) L Blood Urea Nitrogen 37 mg/dL (7-20) H Creatinine 1.3 mg/dL (0.6-1.0) H Estimated GFR (Cockcroft-Gault) 42.4 BUN/Creatinine Ratio 28 (6-20) H Glucose Level 290 mg/dL (70-99) H Calcium Level 9.3 mg/dL (8.5-10.1) Magnesium Level 1.9 mg/dL (1.8-2.4) Total Bilirubin 0.3 mg/dL (0.2-1.0) Aspartate Amino Transferase (AST) 14 U/L (15-37) L Alanine Aminotransferase (ALT) 15 U/L (14-59) Alkaline Phosphatase 86 U/L (46-116) Creatine Kinase 88 U/L (26-192) Creatine Kinase MB (Mass) 1.2 ng/mL (0.0-3.6) Creatine Kinase MB Relative Index 1.4 % (0-4) Troponin I Quantitative < 0.017 ng/mL (0.000-0.055) BK-Znf-H-Type Natriuretic Peptide 244 pg/mL (0-124) H Total Protein 7.6 g/dL (6.4-8.2) Albumin 3.6 g/dL (3.4-5.0) Albumin/Globulin Ratio 0.9 (1.0-1.7) L Thyroid Stimulating Hormone (TSH) 36.085 uIU/mL (0.358-3.74) H Laboratory Tests 02/16/19 16:35 Laboratory Tests 02/16/19 16:35 (SHARONDA DIAZ APRN) EKG EKG [address] Khalil sinus rhythm HR 83 no STEMI (SHARONDA DIAZ APRN) Radiology/Procedures Radiology/Procedures [] (SHARONDA DIAZ APRN) Course & Med Decision Making Course & Med Decision Making Pertinent Labs and Imaging studies reviewed. (See chart for details) This is a 58-year-old male patient presenting to the ED today with complaints of hypertension for 4 days and for syncope episodes today. Patient does have history of hypertension and syncope. Blood pressure 98/57 on arrival to the ED with a heart rate of 82. Patient was started on IV fluids. CBC with a normal WBC, hemoglobin and hematocrit are normal. CMP with creatinine of 1.3 BUN of 37, Glucose 290. 1808 BP noted at 130's/80s. Spoke with Dr. Lagos who accepted patient for admission (SHARONDA DIAZ APRN) Course & Med Decision Making 1835:I was not involved in the care of this patient before 1800 on February 16, 2019. (PAXTON RATLIFF MD) Dragon Disclaimer Dragon Disclaimer This electronic medical record was generated, in whole or in part, using a voice recognition dictation system. (SHARONDA DIAZ APRN) Departure Departure Impression: Primary Impression: Syncope Additional Impressions: Hypotension Hyperglycemia Disposition: ADMITTED INPATIENT Referrals: ROWENA CUNNINGHAM MD (PCP) Problem Qualifiers Primary Impression: Syncope Syncope type: unspecified Qualified Codes: R55 - Syncope and collapse Additional Impressions: Hypotension Hypotension type: unspecified hypotension type Qualified Codes: I95.9 - Hypotension, unspecified SHARONDA DIAZ APRN Feb 16, 2019 17:00 PAXTON RATLIFF MD Feb 16, 2019 18:35
[2019-02-16 17:03] LABS: ALBUMIN 3.6 g/dL (3.4-5.0); ALBUMIN/GLOBULIN RATIO 0.9 (1.0-1.7); MAGNESIUM 1.9 mg/dL (1.8-2.4); TOTAL BILIRUBIN 0.3 mg/dL (0.2-1.0); TOTAL PROTEIN 7.6 g/dL (6.4-8.2)
[2019-02-16] MEDS ORDERED: ACETAMINOPHEN 325 MG TABLET. PO PRN (18:00)
[2019-02-16] MEDS ORDERED: ONDANSETRON PF 4 MG/2 ML VIAL. IV PRN (18:00)
--- NOTE | 2019-02-16 18:18 | RAD ---
PQRS Compliance Statement: One or more of the following individualized dose reduction techniques were utilized for this examination: 1. Automated exposure control 2. Adjustment of the mA and/or kV according to patient size 3. Use of iterative reconstruction technique CT HEAD WITHOUT CONTRAST History: Syncope x4 today. Comparison: CT head without contrast, September 23, 2018. Procedure: Axial images are obtained of the head from the skull base through the vertex without IV contrast. Findings: The ventricles and sulci are normal for the patient's age. No mass-effect, midline shift, hemorrhage, extra-axial fluid collection, or obvious acute infarction is identified. Basilar cisterns are patent. Bone windows demonstrate no acute calvarial abnormality. The visualized paranasal sinuses are clear. Mastoid air cells are well aerated. IMPRESSION: No acute intracranial abnormality. Electronically signed by: Phillip Knapp MD (02/16/2019 6:15 PM) [id number]
--- NOTE | 2019-02-16 18:38 | RAD ---
PORTABLE CHEST 1V Clinical Indication: Syncope Comparison: AP chest January 16, 2019. Findings: The cardiomediastinal silhouette is normal. Lungs are clear. There is no pneumothorax. No pleural effusion is appreciated. No acute bone abnormality. IMPRESSION: No acute cardiopulmonary process. Electronically signed by: Phillip Knapp MD (02/16/2019 6:35 PM) [id number]
[2019-02-16 19:31] VITALS: BP 136/85
[2019-02-16] MEDS ORDERED: LEVO100T5 PO (19:50)
--- NOTE | 2019-02-16 20:00 | NUR ---
Admit from ED via WC. Stood with 1 person assist transfer from WC to bed. A/O x 4. Reports she has been "dealing" with syncope "for over 2 years now". Orientated to room and call light. Reviewed POC to include out of bed with assist. Patient verbalized understanding. Resting in bed with call light at hand.
[2019-02-16] MEDS ORDERED: DEXTROSE 50% 25 GM / 50ML DISP.SYRIN. IV PRN (20:45)
[2019-02-16] MEDS ORDERED: HYDROcodone/APAP 5/325MG 1 TAB TABLET PO PRN (20:45)
[2019-02-16] MEDS: LOVASTATIN 10 MG PO SCH (21:00)
[2019-02-16] MEDS ORDERED: BASAGLAR INSULIN SQ (21:00)
[2019-02-16] MEDS: AMITRIPTYLINE HCL 25 MG TABLET. PO SCH (21:50)
[2019-02-16] MEDS: GABAPENTIN 300 MG CAPSULE. PO SCH (21:50)
[2019-02-16] MEDS: CETIRIZINE HCL 10 MG TABLET. PO PRN (21:51)
[2019-02-16] MEDS: LEVOTHYROXINE 100 MCG TABLET PO SCH (21:51)
[2019-02-16 22:56] VITALS: BP 147/87
[2019-02-17] VITALS (12 sets, daily range): BP systolic 85–184; BP diastolic 52–102
--- NOTE | 2019-02-17 00:05 | NUR ---
Patient very anxious. States she can't breathe. O2Sat 100% RA. Lungs sound clear. Patient does sound like nasal congestion. Reassured patient she is getting enough oxygen with RA but did apply 2L NC with bubbler in attempt to sooth patient. Patient continues to attempt to blow nose. Rocks back and forth in bed.
[2019-02-17] MEDS ORDERED: SODIUM CHLORIDE 0.65% NASAL SPRAY 45ML BOTTLE. NS PRN (00:15)
--- NOTE | 2019-02-17 01:00 | NUR ---
Patient does not want flu vaccine stating she is allergic to it.
[2019-02-17 03:44] LABS: BASO % 1 % (0-3); EOS # 0.3 x10^3/uL (0.0-0.7); EOS % 4 % (0-3); HEMATOCRIT 35.6 % (36.0-47.0); HEMOGLOBIN 11.8 g/dL (12.0-15.5); LYMPH # 3.2 x10^3/uL (1.0-4.8); LYMPH % 48 % (24-48); MEAN CORPUSCULAR HEMOGLOBIN 27 pg (25-35); MEAN CORPUSCULAR HGB CONC 33 g/dL (31-37); MEAN CORPUSCULAR VOLUME 82 fL (79-100); MONO # 0.4 x10^3/uL (0.0-1.1); MONO % 5 % (0-9); NEUT # 2.8 x10^3/uL (1.8-7.7); NEUT % 42 % (31-73); PLATELET COUNT 236 x10^3/uL (140-400); RED BLOOD COUNT 4.33 x10^6/uL (3.50-5.40); RED CELL DISTRIBUTION WIDTH 13.7 % (11.5-14.5); WHITE BLOOD COUNT 6.7 x10^3/uL (4.0-11.0)
[2019-02-17 04:03] LABS: ALBUMIN/GLOBULIN RATIO 0.9 (1.0-1.7); CALCIUM 8.7 mg/dL (8.5-10.1); CREATININE 0.9 mg/dL (0.6-1.0); GFR 64.8; POTASSIUM 4.2 mmol/L (3.5-5.1); TOTAL BILIRUBIN 0.2 mg/dL (0.2-1.0); TOTAL PROTEIN 6.5 g/dL (6.4-8.2)
[2019-02-17] MEDS: MIDODRINE 5 MG TABLET PO SCH ×3 (07:06→17:33)
--- NOTE | 2019-02-17 07:53 | EKG ---
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
[2019-02-17] MEDS ORDERED: INSULIN LISPRO 300 UNITS/3 ML VIAL. SQ SCH (08:00)
[2019-02-17] MEDS: FLUDROCORTISONE 0.1 MG TABLET PO SCH (08:28)
[2019-02-17] MEDS: [UNRECOGNIZED DRUG - REMARK] SQ SCH (08:28)
[2019-02-17] MEDS: INSULIN ASPART SQ SCH ×3 (09:08→17:00)
--- NOTE | 2019-02-17 09:14 | PDOC1 ---
History and Physical Date of Admission Date of Admission DATE: 02/17/19 TIME: 09:12 Identification/Chief Complaint Chief Complaint seen in er ,Patient is a 58 year old female with history of diabetes type 1, hypertension, syncope episodes, high cholesterol, CVA, thyroid mass with thyroidectomy around September who presents to the ED today complaining of hypertension for the last 4 days. Past Medical History Cardiovascular: Hyperlipidemia, Other Pulmonary: COPD CENTRAL NERVOUS SYSTEM: CVA, Periperal neuropathy GI: No pertinent hx Heme/Onc: No pertinent hx Hepatobiliary: No pertinent hx Psych: No pertinent hx Musculoskeletal: Osteoarthritis Rheumatologic: No pertinent hx Infectious disease: Other Renal/: No pertinent hx Endocrine: Diabetes, Hyperthyroidism Past Surgical History Past Surgical History: Other Family History Family History: Diabetes Social History Smoke: No ALCOHOL: none Drugs: None Current Problem List Problem List Problems Medical Problems: (1) Hyperglycemia Status: Acute (2) Hypotension Status: Acute (3) Syncope Status: Acute Current Medications Current Medications Current Medications Sodium Chloride 1,000 ml @ 1,000 mls/hr 1X ONCE IV Last administered on 02/16/19at 16:40; Start 02/16/19 at 16:45; Stop 02/16/19 at 17:44; Status DC Sodium Chloride 1,000 ml @ 1,000 mls/hr 1X ONCE IV Last administered on 02/16/19at 17:30; Start 02/16/19 at 17:30; Stop 02/16/19 at 18:29; Status DC Sodium Chloride 1,000 ml @ 1,000 mls/hr 1X ONCE IV Last administered on 02/16/19at 18:00; Start 02/16/19 at 18:00; Stop 02/16/19 at 18:59; Status DC Ondansetron HCl (Zofran) 4 mg PRN Q8HRS PRN IV NAUSEA/VOMITING; Start 02/16/19 at 18:00; Stop 02/17/19 at 17:59 Acetaminophen (Tylenol) 650 mg PRN Q4HRS PRN PO FEVER; Start 02/16/19 at 18:00; Stop 02/17/19 at 17:59 Sodium Chloride 1,000 ml @ 150 mls/hr 1X ONCE IV ; Start 02/16/19 at 19:00; Stop 02/17/19 at 01:39; Status DC Amitriptyline HCl (Elavil) 50 mg QHS PO Last administered on 02/16/19 21:50; Start 02/16/19 at 21:00 Fludrocortisone Acetate (Florinef) 0.1 mg DAILY PO Last administered on 02/17/19 08:28; Start 02/17/19 at 09:00 Gabapentin (Neurontin) 600 mg HS PO Last administered on 02/16/19 21:50; Start 02/16/19 at 21:00 Acetaminophen/ Hydrocodone Bitart (Lortab 5/325) 1 tab PRN Q6HRS PRN PO PAIN; Start 02/16/19 at 20:45 Levothyroxine Sodium (Synthroid) 100 mcg HS PO Last administered on 02/16/19 21:51; Start 02/16/19 at 21:00 Non-Formulary Medication 1 ea DAILY SQ Last administered on 02/17/19 08:28; Start 02/17/19 at 09:00 Non-Formulary Medication (Lovastatin ) 10 mg HS PO ; Start 02/16/19 at 21:00; Status UNV Midodrine (Proamatine) 10 mg [id number] PO Last administered on 02/17/19 07:06; Start 02/17/19 at 07:00 Insulin Human Lispro (HumaLOG) 0-7 UNITS TIDWMEALS SQ ; Start 02/17/19 at 08:00; Stop 02/17/19 at 09:00; Status DC Dextrose (Dextrose 50%-Water Syringe) 12.5 gm PRN Q15MIN PRN IV SEE COMMENTS; Start 02/16/19 at 20:45 Cetirizine HCl (ZyrTEC) 10 mg PRN DAILY PRN PO ALLERGIES/congestion Last administered on 02/16/19 21:51; Start 02/16/19 at 20:45 Sodium Chloride (Saline Mist Nasal) 1 meagan PRN Q1HR PRN NS NASAL CONGESTION Last administered on 02/17/19 01:42; Start 02/17/19 at 00:15 Non-Formulary Medication 0-7 UNITS TIDWMEALS SQ Last administered on 02/17/19 09:08; Start 02/17/19 at 09:00 Active Scripts Active Fludrocortisone Acetate 0.1 Mg Tablet 0.1 Mg PO DAILY 30 Days Amitriptyline Hcl 25 Mg Tablet 50 Mg PO QHS 30 Days [place] 5-325 Tablet (Acetaminophen/Hydrocodone Bitart) 1 Each Tablet 0.5 Tab PO Q6-8HRS PRN Reported [Basaglar Insulin ] 30 Units SQ DAILY Ok to take home med per Dr Larson's order Levothyroxine Sodium 100 Mcg Tablet 100 Mcg PO HS [Acetaminophen Pm] 1 Tab PO HS Novolog Flexpen (Insulin Aspart) 100 Unit/1 Ml Insuln.pen 1 Unit SQ TIDAC PER SLIDING SCALE Midodrine Hcl 10 Mg Tablet 10 Mg PO TID Basaglar Kwikpen U-100 (Insulin Glargine,Hum.rec.anlog) 100 Unit/1 Ml Insuln.pen 30 Unit SQ DAILY08 Lovastatin 10 Mg Tablet 10 Mg PO HS Gabapentin (Gabapentin) 300 Mg Capsule 600 Mg PO HS Allergies Allergies: Coded Allergies: atorvastatin (Verified Allergy, Severe, throat swells, 10/13/18) ciprofloxacin (Verified Allergy, Severe, "THROAT CLOSES UP" ANAPHYLAXIS, 10/13/18) hydroxyzine (Verified Allergy, Severe, DIZZINESS, "I FEEL LIKE IM DRUNK", 10/13/18) raspberry (Verified Allergy, Severe, CHOKING SENSATION IN THROAT, 10/13/18) tramadol (Verified Allergy, Severe, VOMITING, 10/13/18) amoxicillin (Verified Allergy, Intermediate, 10/13/18) aspirin (Verified Allergy, Intermediate, 10/13/18) cephalexin (Verified Allergy, Intermediate, 10/13/18) codeine (Verified Allergy, Intermediate, 10/13/18) ibuprofen (Verified Allergy, Intermediate, 10/13/18) morphine (Verified Allergy, Intermediate, 10/13/18) simvastatin (Verified Allergy, Intermediate, 10/13/18) LEGS BUCKEL, LOSE FEELING sucralose (Verified Allergy, Intermediate, 11/09/18) lidocaine (Verified Allergy, Mild, 12/02/18) pregabalin (Verified Allergy, Mild, vomiting, 10/13/18) ROS Review of System Review of Systems Review of Systems Constitutional: Denies fever or chills [] Eyes: Denies change in visual acuity, redness, or eye pain [] HENT: Denies nasal congestion or sore throat [] Respiratory: Denies cough or shortness of breath [] Cardiovascular: Reports hypertension GI: Denies abdominal pain, nausea, vomiting, bloody stools or diarrhea [] : Denies dysuria or hematuria [] Musculoskeletal: Denies back pain or joint pain [] Integument: Denies rash or skin lesions [] Neurologic: Reports syncope. Denies headache, focal weakness or sensory changes [] 14 pt systems were reviewed and found to be within normal limits, except as documented . General: YES: Fatigue Eyes: No Blurry vision, No Decreased vision, No Double vision, No Dry eyes, No Excessive tearing, No Eye Pain, No Itchy Eyes, No Loss of vision, No Photophobia, No Scotomata, No Uses contacts, No Uses glasses, No Other Hematological and Lymphatic: No: Bleeding Problems, Blood Clots, Blood Transfusions, Brusing, Night Sweats, Pallor, Swollen Lymph Nodes, Other Gastrointestinal: Yes Abdominal Pain; No Nausea, No Vomiting, No Diarrhea, No Constipation, No Melena, No Hematochezia, No Other Neurological: Yes Gait Disturbance Physical Exam Physical Exam Physical Exam Physical Exam Constitutional: Well developed, well nourished, no acute distress, non-toxic appearance. [] HENT: Normocephalic, atraumatic, bilateral external ears normal, oropharynx moist, no oral exudates, nose normal. [] Eyes: PERRLA, EOMI, conjunctiva normal, no discharge. [] Neck: Old healed surgical scar noted on the anterior cervical spine area. Normal range of motion, no tenderness, supple, no stridor. [] Cardiovascular:Heart rate regular rhythm, no murmur [] Lungs & Thorax: Bilateral breath sounds clear to auscultation [] Abdomen: Bowel sounds normal, soft, no tenderness, no masses, no pulsatile masses. [] Skin: Warm, dry, no erythema, no rash. [] Back: No tenderness, no CVA tenderness. [] Extremities: No tenderness, no cyanosis, no clubbing, ROM intact, no edema. [] Neurologic: Alert and oriented X 3, normal motor function, normal sensory func tion, no focal deficits noted. Cranial nerves II through XII intact Psychologic: Affect normal, judgement normal, mood normal. [] General: Alert, Oriented X3, Cooperative Heart: no thrills Breasts: Not examined Rectal Exam: not examined PELVIC: Examination not indicated Extremities: No cyanosis Neuro: Normal speech, Cranial nerves 3-12 NL Psych/Mental Status: Mental status NL Vitals Vitals Vital Signs Date Time Temp Pulse Resp B/P (MAP) Pulse Ox O2 Delivery O2 Flow Rate FiO2 02/17/19 08:25 97.3 90 18 85/57 (66) 98 97.3 02/17/19 03:45 Room Air Labs Labs Laboratory Tests Test 02/16/19 16:35 02/17/19 03:00 02/17/19 08:23 White Blood Count 8.8 x10^3/uL (4.0-11.0) 6.7 x10^3/uL (4.0-11.0) Red Blood Count 5.07 x10^6/uL (3.50-5.40) 4.33 x10^6/uL (3.50-5.40) Hemoglobin 13.8 g/dL (12.0-15.5) 11.8 g/dL (12.0-15.5) Hematocrit 41.6 % (36.0-47.0) 35.6 % (36.0-47.0) Mean Corpuscular Volume 82 fL (79-100) 82 fL (79-100) Mean Corpuscular Hemoglobin 27 pg (25-35) 27 pg (25-35) Mean Corpuscular Hemoglobin Concent 33 g/dL (31-37) 33 g/dL (31-37) Red Cell Distribution Width 13.7 % (11.5-14.5) 13.7 % (11.5-14.5) Platelet Count 309 x10^3/uL (140-400) 236 x10^3/uL (140-400) Neutrophils (%) (Auto) 52 % (31-73) 42 % (31-73) Lymphocytes (%) (Auto) 38 % (24-48) 48 % (24-48) Monocytes (%) (Auto) 6 % (0-9) 5 % (0-9) Eosinophils (%) (Auto) 3 % (0-3) 4 % (0-3) Basophils (%) (Auto) 1 % (0-3) 1 % (0-3) Neutrophils # (Auto) 4.5 x10^3/uL (1.8-7.7) 2.8 x10^3/uL (1.8-7.7) Lymphocytes # (Auto) 3.4 x10^3/uL (1.0-4.8) 3.2 x10^3/uL (1.0-4.8) Monocytes # (Auto) 0.5 x10^3/uL (0.0-1.1) 0.4 x10^3/uL (0.0-1.1) Eosinophils # (Auto) 0.3 x10^3/uL (0.0-0.7) 0.3 x10^3/uL (0.0-0.7) Basophils # (Auto) 0.1 x10^3/uL (0.0-0.2) 0.0 x10^3/uL (0.0-0.2) Sodium Level 137 mmol/L (136-145) 142 mmol/L (136-145) Potassium Level 3.9 mmol/L (3.5-5.1) 4.2 mmol/L (3.5-5.1) Chloride Level 99 mmol/L (98-107) 106 mmol/L (98-107) Carbon Dioxide Level 33 mmol/L (21-32) 30 mmol/L (21-32) Anion Gap 5 (6-14) 6 (6-14) Blood Urea Nitrogen 37 mg/dL (7-20) 31 mg/dL (7-20) Creatinine 1.3 mg/dL (0.6-1.0) 0.9 mg/dL (0.6-1.0) Estimated GFR (Cockcroft-Gault) 42.4 64.8 BUN/Creatinine Ratio 28 (6-20) 34 (6-20) Glucose Level 290 mg/dL (70-99) 354 mg/dL (70-99) Calcium Level 9.3 mg/dL (8.5-10.1) 8.7 mg/dL (8.5-10.1) Magnesium Level 1.9 mg/dL (1.8-2.4) Total Bilirubin 0.3 mg/dL (0.2-1.0) 0.2 mg/dL (0.2-1.0) Aspartate Amino Transf (AST/SGOT) 14 U/L (15-37) 14 U/L (15-37) Alanine Aminotransferase (ALT/SGPT) 15 U/L (14-59) 16 U/L (14-59) Alkaline Phosphatase 86 U/L (46-116) 89 U/L (46-116) Creatine Kinase 88 U/L (26-192) Creatine Kinase MB (Mass) 1.2 ng/mL (0.0-3.6) Creatine Kinase MB Relative Index 1.4 % (0-4) Troponin I Quantitative < 0.017 ng/mL (0.000-0.055) GO-Ylv-[id number]-Type Natriuretic Peptide 244 pg/mL (0-124) Total Protein 7.6 g/dL (6.4-8.2) 6.5 g/dL (6.4-8.2) Albumin 3.6 g/dL (3.4-5.0) 3.0 g/dL (3.4-5.0) Albumin/Globulin Ratio 0.9 (1.0-1.7) 0.9 (1.0-1.7) Thyroid Stimulating Hormone (TSH) 36.085 uIU/mL (0.358-3.74) Glucose (Fingerstick) 224 mg/dL (70-99) Laboratory Tests Test 02/16/19 16:35 02/17/19 03:00 02/17/19 08:23 White Blood Count 8.8 x10^3/uL (4.0-11.0) 6.7 x10^3/uL (4.0-11.0) Red Blood Count 5.07 x10^6/uL (3.50-5.40) 4.33 x10^6/uL (3.50-5.40) Hemoglobin 13.8 g/dL (12.0-15.5) 11.8 g/dL (12.0-15.5) Hematocrit 41.6 % (36.0-47.0) 35.6 % (36.0-47.0) Mean Corpuscular Volume 82 fL (79-100) 82 fL (79-100) Mean Corpuscular Hemoglobin 27 pg (25-35) 27 pg (25-35) Mean Corpuscular Hemoglobin Concent 33 g/dL (31-37) 33 g/dL (31-37) Red Cell Distribution Width 13.7 % (11.5-14.5) 13.7 % (11.5-14.5) Platelet Count 309 x10^3/uL (140-400) 236 x10^3/uL (140-400) Neutrophils (%) (Auto) 52 % (31-73) 42 % (31-73) Lymphocytes (%) (Auto) 38 % (24-48) 48 % (24-48) Monocytes (%) (Auto) 6 % (0-9) 5 % (0-9) Eosinophils (%) (Auto) 3 % (0-3) 4 % (0-3) Basophils (%) (Auto) 1 % (0-3) 1 % (0-3) Neutrophils # (Auto) 4.5 x10^3/uL (1.8-7.7) 2.8 x10^3/uL (1.8-7.7) Lymphocytes # (Auto) 3.4 x10^3/uL (1.0-4.8) 3.2 x10^3/uL (1.0-4.8) Monocytes # (Auto) 0.5 x10^3/uL (0.0-1.1) 0.4 x10^3/uL (0.0-1.1) Eosinophils # (Auto) 0.3 x10^3/uL (0.0-0.7) 0.3 x10^3/uL (0.0-0.7) Basophils # (Auto) 0.1 x10^3/uL (0.0-0.2) 0.0 x10^3/uL (0.0-0.2) Sodium Level 137 mmol/L (136-145) 142 mmol/L (136-145) Potassium Level 3.9 mmol/L (3.5-5.1) 4.2 mmol/L (3.5-5.1) Chloride Level 99 mmol/L (98-107) 106 mmol/L (98-107) Carbon Dioxide Level 33 mmol/L (21-32) 30 mmol/L (21-32) Anion Gap 5 (6-14) 6 (6-14) Blood Urea Nitrogen 37 mg/dL (7-20) 31 mg/dL (7-20) Creatinine 1.3 mg/dL (0.6-1.0) 0.9 mg/dL (0.6-1.0) Estimated GFR (Cockcroft-Gault) 42.4 64.8 BUN/Creatinine Ratio 28 (6-20) 34 (6-20) Glucose Level 290 mg/dL (70-99) 354 mg/dL (70-99) Calcium Level 9.3 mg/dL (8.5-10.1) 8.7 mg/dL (8.5-10.1) Magnesium Level 1.9 mg/dL (1.8-2.4) Total Bilirubin 0.3 mg/dL (0.2-1.0) 0.2 mg/dL (0.2-1.0) Aspartate Amino Transf (AST/SGOT) 14 U/L (15-37) 14 U/L (15-37) Alanine Aminotransferase (ALT/SGPT) 15 U/L (14-59) 16 U/L (14-59) Alkaline Phosphatase 86 U/L (46-116) 89 U/L (46-116) Creatine Kinase 88 U/L (26-192) Creatine Kinase MB (Mass) 1.2 ng/mL (0.0-3.6) Creatine Kinase MB Relative Index 1.4 % (0-4) Troponin I Quantitative < 0.017 ng/mL (0.000-0.055) DK-Txi-J-Type Natriuretic Peptide 244 pg/mL (0-124) Total Protein 7.6 g/dL (6.4-8.2) 6.5 g/dL (6.4-8.2) Albumin 3.6 g/dL (3.4-5.0) 3.0 g/dL (3.4-5.0) Albumin/Globulin Ratio 0.9 (1.0-1.7) 0.9 (1.0-1.7) Thyroid Stimulating Hormone (TSH) 36.085 uIU/mL (0.358-3.74) Glucose (Fingerstick) 224 mg/dL (70-99) VTE Prophylaxis Ordered VTE Prophylaxis Devices: Yes VTE Pharmacological Prophylaxi: No Assessment/Plan Assessment/Plan impression symptomatic orthostatic hypotension with recurrent falls. alberto-hallpike attempted 01/17 without improvement. continue fludricortisone and midodrine. peripheral neuropathy- trial of neurontin hx Atypical chest pain: Acquired hypothyroidism: recent thyroidectomy r/t multinodular goiter. dm1, insulin GERD KASIA on CKD htn multdrug allergies including contrast PT eval cards consulted recent echo normal. also had tilt table normal plan admit cvc bed. cardiology consult fall precautions, high risk WENDI HOSE THIGH-HIGH 57 min pt exam, chart review, > 50% of time spent with exam, chart review, pt care coordination PARMINDER LARSON MD Feb 17, 2019 09:14
--- NOTE | 2019-02-17 10:45 | NUR ---
SS following for discharge planning. SS reviewed pt chart. Pt is from home with spouse and is currently on room air. PT evaluated pt and recommended home with assistance. SS will continue to follow for discharge planning.
--- NOTE | 2019-02-17 11:16 | PDOC2 ---
ROSALBA ZAMORANO [employer]PERATOR 02/17/19 1116: CARDIAC CONSULT DATE OF CONSULT Date of Consult DATE: 02/17/19 TIME: 10:58 REASON FOR CONSULT Reason for Consult: orthostatic hypotension REFERRING PHYSICIAN Referring Physician: Dr. Lagos SOURCE Source: Chart review, Patient HISTORY OF PRESENT ILLNESS HISTORY OF PRESENT ILLNESS This is a 58 yo female who presented secondary to syncopal episodes. Patient has a history of orthostatic hypotension and recurrent syncopal episodes. Known to our service from previous admissions. Has been having more frequent "white out" spells recently. Changes positions slowly, but reports she continues to feel dizzy and have syncopal episodes upon standing. Yesterday, had 4 syncopal episode total. One episode she was sitting riding in the car so she decided to go to the ED for further evaluation and treatment. Has been unable to wear her abdominal binder due to right side pain and has multiple lower extremity wounds and has been unable to wear her compression stockings. Tried to have adequate fluid intake. Does urinated frequently. Also drinks tea every evening and occasionally during the day. Denies any chest pain, palpitations, dizziness, diaphoresis, or nausea/vomiting. PAST MEDICAL HISTORY Past Medical History Cardiovascular: Hyperlipidemia Pulmonary: COPD CENTRAL NERVOUS SYSTEM: CVA, Peripheral neuropathy GI: No pertinent hx Heme/Onc: No pertinent hx Hepatobiliary: No pertinent hx Psych: No pertinent hx Musculoskeletal: Osteoarthritis Rheumatologic: No pertinent hx Infectious disease: Other Renal/: No pertinent hx Endocrine: Diabetes, Hyperthyroidism, multinodular goiter, Acquired hypothyroidism PAST SURGICAL HISTORY Past Surgical History total thyroidectomy FAMILY HISTORY Family History: Diabetes SOCIAL HISTORY Social History Smoke: No ALCOHOL: none Drugs: None Lives: with Family CURRENT MEDICATIONS CURRENT MEDICATIONS Current Medications Medications (Trade) Dose Ordered Sig/[place] Route PRN Reason Start Time Stop Time Status Last Admin Dose Admin Sodium Chloride 1,000 ml @ 1,000 mls/hr 1X ONCE IV 02/16/19 16:45 02/16/19 17:44 DC 02/16/19 16:40 Sodium Chloride 1,000 ml @ 1,000 mls/hr 1X ONCE IV 02/16/19 17:30 02/16/19 18:29 DC 02/16/19 17:30 Sodium Chloride 1,000 ml @ 1,000 mls/hr 1X ONCE IV 02/16/19 18:00 02/16/19 18:59 DC 02/16/19 18:00 Amitriptyline HCl (Elavil) 50 mg QHS PO 02/16/19 21:00 02/16/19 21:50 Fludrocortisone Acetate (Florinef) 0.1 mg DAILY PO 02/17/19 09:00 02/17/19 08:28 Gabapentin (Neurontin) 600 mg HS PO 02/16/19 21:00 02/16/19 21:50 Levothyroxine Sodium (Synthroid) 100 mcg HS PO 02/16/19 21:00 02/16/19 21:51 Non-Formulary Medication 1 ea DAILY SQ 02/17/19 09:00 02/17/19 08:28 Midodrine (Proamatine) 10 mg [id number] PO 02/17/19 07:00 02/17/19 07:06 Cetirizine HCl (ZyrTEC) 10 mg PRN DAILY PRN PO ALLERGIES/congestion 02/16/19 20:45 02/16/19 21:51 Sodium Chloride (Saline Mist Nasal) 1 meagan PRN Q1HR PRN NS NASAL CONGESTION 02/17/19 00:15 02/17/19 01:42 Non-Formulary Medication 0-7 UNITS TIDWMEALS SQ 02/17/19 09:00 02/17/19 09:08 ALLERGIES ALLERGIES: Coded Allergies: atorvastatin (Verified Allergy, Severe, throat swells, 10/13/18) ciprofloxacin (Verified Allergy, Severe, "THROAT CLOSES UP" ANAPHYLAXIS, 10/13/18) hydroxyzine (Verified Allergy, Severe, DIZZINESS, "I FEEL LIKE IM DRUNK", 10/13/18) raspberry (Verified Allergy, Severe, CHOKING SENSATION IN THROAT, 10/13/18) tramadol (Verified Allergy, Severe, VOMITING, 10/13/18) amoxicillin (Verified Allergy, Intermediate, 10/13/18) aspirin (Verified Allergy, Intermediate, 10/13/18) cephalexin (Verified Allergy, Intermediate, 10/13/18) codeine (Verified Allergy, Intermediate, 10/13/18) ibuprofen (Verified Allergy, Intermediate, 10/13/18) morphine (Verified Allergy, Intermediate, 10/13/18) simvastatin (Verified Allergy, Intermediate, 10/13/18) LEGS BUCKEL, LOSE FEELING sucralose (Verified Allergy, Intermediate, 11/09/18) lidocaine (Verified Allergy, Mild, 12/02/18) pregabalin (Verified Allergy, Mild, vomiting, 10/13/18) ROS Review of System 14 point ROS conducted with pertinent positives noted above in HPI. PHYSICAL EXAM PHYSICAL EXAM General: Alert, Oriented X3, Cooperative, No acute distress HEENT: Atraumatic, Mucous membr. moist/pink Lungs: Clear to auscultation, Normal air movement Heart: Regular rate (SR with PVCs), Normal S1, Normal S2, No murmurs Abdomen: Soft, No tenderness Extremities: No cyanosis, No edema Skin: multiple wounds to bilateral LE dressings intact) Neuro: Normal speech, Sensation intact Psych/Mental Status: Mental status NL, Mood NL MUSCULOSKELETAL: Osteoarthritic changes both hands VITALS/I&O VITALS/I&O: Vital Signs Date Time Temp Pulse Resp B/P (MAP) Pulse Ox O2 Delivery O2 Flow Rate FiO2 02/17/19 10:31 98.0 96 20 148/87 (107) 98 Room Air 98.0 I & O 02/16/19 02/16/19 02/17/19 14:59 22:59 06:59 Intake Total 3240 ml 30 ml Output Total 400 ml 350 ml Balance 2840 ml -320 ml LABS Lab: Laboratory Tests Test 02/16/19 16:35 02/17/19 03:00 02/17/19 08:23 White Blood Count 8.8 x10^3/uL (4.0-11.0) 6.7 x10^3/uL (4.0-11.0) Red Blood Count 5.07 x10^6/uL (3.50-5.40) 4.33 x10^6/uL (3.50-5.40) Hemoglobin 13.8 g/dL (12.0-15.5) 11.8 g/dL (12.0-15.5) L Hematocrit 41.6 % (36.0-47.0) 35.6 % (36.0-47.0) L Mean Corpuscular Volume 82 fL (79-100) 82 fL (79-100) Mean Corpuscular Hemoglobin 27 pg (25-35) 27 pg (25-35) Mean Corpuscular Hemoglobin Concent 33 g/dL (31-37) 33 g/dL (31-37) Red Cell Distribution Width 13.7 % (11.5-14.5) 13.7 % (11.5-14.5) Platelet Count 309 x10^3/uL (140-400) 236 x10^3/uL (140-400) Neutrophils (%) (Auto) 52 % (31-73) 42 % (31-73) Lymphocytes (%) (Auto) 38 % (24-48) 48 % (24-48) Monocytes (%) (Auto) 6 % (0-9) 5 % (0-9) Eosinophils (%) (Auto) 3 % (0-3) 4 % (0-3) H Basophils (%) (Auto) 1 % (0-3) 1 % (0-3) Neutrophils # (Auto) 4.5 x10^3/uL (1.8-7.7) 2.8 x10^3/uL (1.8-7.7) Lymphocytes # (Auto) 3.4 x10^3/uL (1.0-4.8) 3.2 x10^3/uL (1.0-4.8) Monocytes # (Auto) 0.5 x10^3/uL (0.0-1.1) 0.4 x10^3/uL (0.0-1.1) Eosinophils # (Auto) 0.3 x10^3/uL (0.0-0.7) 0.3 x10^3/uL (0.0-0.7) Basophils # (Auto) 0.1 x10^3/uL (0.0-0.2) 0.0 x10^3/uL (0.0-0.2) Sodium Level 137 mmol/L (136-145) 142 mmol/L (136-145) Potassium Level 3.9 mmol/L (3.5-5.1) 4.2 mmol/L (3.5-5.1) Chloride Level 99 mmol/L (98-107) 106 mmol/L (98-107) Carbon Dioxide Level 33 mmol/L (21-32) H 30 mmol/L (21-32) Anion Gap 5 (6-14) L 6 (6-14) Blood Urea Nitrogen 37 mg/dL (7-20) H 31 mg/dL (7-20) H Creatinine 1.3 mg/dL (0.6-1.0) H 0.9 mg/dL (0.6-1.0) Estimated GFR (Cockcroft-Gault) 42.4 64.8 BUN/Creatinine Ratio 28 (6-20) H 34 (6-20) H Glucose Level 290 mg/dL (70-99) H 354 mg/dL (70-99) H Calcium Level 9.3 mg/dL (8.5-10.1) 8.7 mg/dL (8.5-10.1) Magnesium Level 1.9 mg/dL (1.8-2.4) Total Bilirubin 0.3 mg/dL (0.2-1.0) 0.2 mg/dL (0.2-1.0) Aspartate Amino Transferase (AST) 14 U/L (15-37) L 14 U/L (15-37) L Alanine Aminotransferase (ALT) 15 U/L (14-59) 16 U/L (14-59) Alkaline Phosphatase 86 U/L (46-116) 89 U/L (46-116) Creatine Kinase 88 U/L (26-192) Creatine Kinase MB (Mass) 1.2 ng/mL (0.0-3.6) Creatine Kinase MB Relative Index 1.4 % (0-4) Troponin I Quantitative < 0.017 ng/mL (0.000-0.055) VE-Uef-Y-Type Natriuretic Peptide 244 pg/mL (0-124) H Total Protein 7.6 g/dL (6.4-8.2) 6.5 g/dL (6.4-8.2) Albumin 3.6 g/dL (3.4-5.0) 3.0 g/dL (3.4-5.0) L Albumin/Globulin Ratio 0.9 (1.0-1.7) L 0.9 (1.0-1.7) L Thyroid Stimulating Hormone (TSH) 36.085 uIU/mL (0.358-3.74) H Glucose (Fingerstick) 224 mg/dL (70-99) H Laboratory Tests 02/16/19 16:35 02/17/19 03:00 Laboratory Tests 02/16/19 16:35 02/17/19 03:00 ECHOCARDIOGRAM ECHOCARDIOGRAM <Conclusion> The left ventricle is normal size. The left ventricular systolic function is normal and the ejection fraction is within normal range. The Ejection Fraction is 55-60%. There is no significant aortic valvular stenosis. Doppler and Color Flow revealed trace aortic regurgitation. Doppler and Color Flow revealed trace mitral valve regurgitation. Doppler and Color Flow revealed trace tricuspid regurgitation. DATE: 08/24/18 1232 ASSESSMENT/PLAN ASSESSMENT/PLAN 1. Recurrent syncope; primarily due to orthostasis. S/p 3L IVFs 2. Acquired hypothyroidism: recent thyroidectomy r/t multinodular goiter. TSH not on goal 3. Orthostasis: probable autonomic dysfunction. 4. Hyperlipidemia 5. Diabetes, II Recommendations Continue with florinef and midodrine. Mechanical compressions as able Could consider loop recorder implant, but recurrent syncope most probably due to autonomic dysfunction Supportive care Ensure adequate hydration. Limit caffeine LISETTE COHEN MD 02/17/19 1900: CARDIAC CONSULT ASSESSMENT/PLAN ASSESSMENT/PLAN Pt. seen and examined. Agree with above LEASING DIRECTOR note. Supportive care. ROSALBA ZAMORANO APRN Feb 17, 2019 11:16 LISETTE COHEN MD Feb 17, 2019 19:00
--- NOTE | 2019-02-17 11:34 | NUR ---
SS following up with discharge planning. Pt's RN notified SS that pt was previously on services with [facility], ; fax [phone]. Pt will need home healthcare orders at discharge.
[2019-02-17] MEDS ORDERED: NOVOLOG INSULIN PEN SQ ONE (12:00)
[2019-02-17] MEDS: CETIRIZINE HCL 10 MG TABLET. PO PRN (13:00)
--- NOTE | 2019-02-17 15:21 | NUR ---
Wound Care Pt seen for wound care consultation re: multiple abrasions from fall at home. Pt assessed, abrasions are scabbed, no interventions needed, no other wounds noted on skin assessment. WC will sign off, please reconsult if condition changes.
[2019-02-17] MEDS: LOVASTATIN 10 MG PO SCH (21:00)
[2019-02-17] MEDS: AMITRIPTYLINE HCL 25 MG TABLET. PO SCH (22:07)
[2019-02-17] MEDS: LEVOTHYROXINE 100 MCG TABLET PO SCH (22:07)
[2019-02-17] MEDS: GABAPENTIN 300 MG CAPSULE. PO SCH (22:07)
[2019-02-18 03:36] VITALS: BP 102/65
[2019-02-18] MEDS: MIDODRINE 5 MG TABLET PO SCH ×2 (06:29→13:03)
[2019-02-18 06:30] VITALS: BP 98/56
[2019-02-18] MEDS: INSULIN ASPART SQ SCH ×2 (08:00→12:13)
[2019-02-18] MEDS: FLUDROCORTISONE 0.1 MG TABLET PO SCH (08:44)
--- NOTE | 2019-02-18 09:00 | PDOC ---
PROGRESS NOTES History of Present Illness History of Present Illness VTE Prophylaxis Ordered VTE Prophylaxis Devices: Yes VTE Pharmacological Prophylaxi: No Assessment/Plan Assessment/Plan impression symptomatic orthostatic hypotension with recurrent falls. alberto-hallpike attempted 01/17 without improvement. continue fludricortisone and midodrine. peripheral neuropathy- trial of neurontin hx Atypical chest pain: Acquired hypothyroidism: recent thyroidectomy r/t multinodular goiter. dm1, insulin GERD KASIA on CKD htn multdrug allergies including contrast PT eval cards consulted recent echo normal. also had tilt table normal RUQ DISCOMFORT 02-18 BP REMAINS LABILE, now has ruq pain plan admit cvc bed. cardiology following fall precautions, high risk WENDI HOSE THIGH-HIGH ABD SONO 28 min pt exam, chart review, > 50% of time spent with exam, chart review, pt care coordination Vitals Vitals Vital Signs Date Time Temp Pulse Resp B/P (MAP) Pulse Ox O2 Delivery O2 Flow Rate FiO2 02/18/19 07:30 Room Air 02/18/19 06:30 91 98/56 (70) 02/18/19 03:36 98.1 16 96 98.1 Physical Exam General: Alert, Oriented X3, Cooperative Heart: Regular rate Lungs: Clear Extremities: No cyanosis Labs LABS Laboratory Tests Test 02/17/19 11:57 02/17/19 17:32 02/17/19 22:03 02/18/19 08:43 Glucose (Fingerstick) 261 mg/dL (70-99) 178 mg/dL (70-99) 256 mg/dL (70-99) 106 mg/dL (70-99) Assessment and Plan Assessmemt and Plan Problems Medical Problems: (1) Hyperglycemia Status: Acute (2) Hypotension Status: Acute (3) Syncope Status: Acute Comment Review of Relevant I have reviewed the following items zurdo (where applicable) has been applied. Labs Laboratory Tests Test 02/16/19 16:35 02/17/19 03:00 02/17/19 08:23 02/17/19 11:57 White Blood Count 8.8 x10^3/uL (4.0-11.0) 6.7 x10^3/uL (4.0-11.0) Red Blood Count 5.07 x10^6/uL (3.50-5.40) 4.33 x10^6/uL (3.50-5.40) Hemoglobin 13.8 g/dL (12.0-15.5) 11.8 g/dL (12.0-15.5) Hematocrit 41.6 % (36.0-47.0) 35.6 % (36.0-47.0) Mean Corpuscular Volume 82 fL (79-100) 82 fL (79-100) Mean Corpuscular Hemoglobin 27 pg (25-35) 27 pg (25-35) Mean Corpuscular Hemoglobin Concent 33 g/dL (31-37) 33 g/dL (31-37) Red Cell Distribution Width 13.7 % (11.5-14.5) 13.7 % (11.5-14.5) Platelet Count 309 x10^3/uL (140-400) 236 x10^3/uL (140-400) Neutrophils (%) (Auto) 52 % (31-73) 42 % (31-73) Lymphocytes (%) (Auto) 38 % (24-48) 48 % (24-48) Monocytes (%) (Auto) 6 % (0-9) 5 % (0-9) Eosinophils (%) (Auto) 3 % (0-3) 4 % (0-3) Basophils (%) (Auto) 1 % (0-3) 1 % (0-3) Neutrophils # (Auto) 4.5 x10^3/uL (1.8-7.7) 2.8 x10^3/uL (1.8-7.7) Lymphocytes # (Auto) 3.4 x10^3/uL (1.0-4.8) 3.2 x10^3/uL (1.0-4.8) Monocytes # (Auto) 0.5 x10^3/uL (0.0-1.1) 0.4 x10^3/uL (0.0-1.1) Eosinophils # (Auto) 0.3 x10^3/uL (0.0-0.7) 0.3 x10^3/uL (0.0-0.7) Basophils # (Auto) 0.1 x10^3/uL (0.0-0.2) 0.0 x10^3/uL (0.0-0.2) Sodium Level 137 mmol/L (136-145) 142 mmol/L (136-145) Potassium Level 3.9 mmol/L (3.5-5.1) 4.2 mmol/L (3.5-5.1) Chloride Level 99 mmol/L (98-107) 106 mmol/L (98-107) Carbon Dioxide Level 33 mmol/L (21-32) 30 mmol/L (21-32) Anion Gap 5 (6-14) 6 (6-14) Blood Urea Nitrogen 37 mg/dL (7-20) 31 mg/dL (7-20) Creatinine 1.3 mg/dL (0.6-1.0) 0.9 mg/dL (0.6-1.0) Estimated GFR (Cockcroft-Gault) 42.4 64.8 BUN/Creatinine Ratio 28 (6-20) 34 (6-20) Glucose Level 290 mg/dL (70-99) 354 mg/dL (70-99) Calcium Level 9.3 mg/dL (8.5-10.1) 8.7 mg/dL (8.5-10.1) Magnesium Level 1.9 mg/dL (1.8-2.4) Total Bilirubin 0.3 mg/dL (0.2-1.0) 0.2 mg/dL (0.2-1.0) Aspartate Amino Transf (AST/SGOT) 14 U/L (15-37) 14 U/L (15-37) Alanine Aminotransferase (ALT/SGPT) 15 U/L (14-59) 16 U/L (14-59) Alkaline Phosphatase 86 U/L (46-116) 89 U/L (46-116) Creatine Kinase 88 U/L (26-192) Creatine Kinase MB (Mass) 1.2 ng/mL (0.0-3.6) Creatine Kinase MB Relative Index 1.4 % (0-4) Troponin I Quantitative < 0.017 ng/mL (0.000-0.055) NU-Czh-T-Type Natriuretic Peptide 244 pg/mL (0-124) Total Protein 7.6 g/dL (6.4-8.2) 6.5 g/dL (6.4-8.2) Albumin 3.6 g/dL (3.4-5.0) 3.0 g/dL (3.4-5.0) Albumin/Globulin Ratio 0.9 (1.0-1.7) 0.9 (1.0-1.7) Thyroid Stimulating Hormone (TSH) 36.085 uIU/mL (0.358-3.74) Glucose (Fingerstick) 224 mg/dL (70-99) 261 mg/dL (70-99) Test 02/17/19 17:32 02/17/19 22:03 02/18/19 08:43 Glucose (Fingerstick) 178 mg/dL (70-99) 256 mg/dL (70-99) 106 mg/dL (70-99) Laboratory Tests Test 02/17/19 11:57 02/17/19 17:32 02/17/19 22:03 02/18/19 08:43 Glucose (Fingerstick) 261 mg/dL (70-99) 178 mg/dL (70-99) 256 mg/dL (70-99) 106 mg/dL (70-99) Medications Current Medications Sodium Chloride 1,000 ml @ 1,000 mls/hr 1X ONCE IV Last administered on 02/16/19at 16:40; Start 02/16/19 at 16:45; Stop 02/16/19 at 17:44; Status DC Sodium Chloride 1,000 ml @ 1,000 mls/hr 1X ONCE IV Last administered on 02/16/19at 17:30; Start 02/16/19 at 17:30; Stop 02/16/19 at 18:29; Status DC Sodium Chloride 1,000 ml @ 1,000 mls/hr 1X ONCE IV Last administered on 02/16/19at 18:00; Start 02/16/19 at 18:00; Stop 02/16/19 at 18:59; Status DC Ondansetron HCl (Zofran) 4 mg PRN Q8HRS PRN IV NAUSEA/VOMITING; Start 02/16/19 at 18:00; Stop 02/17/19 at 17:59; Status DC Acetaminophen (Tylenol) 650 mg PRN Q4HRS PRN PO FEVER; Start 02/16/19 at 1 8:00; Stop 02/17/19 at 17:59; Status DC Sodium Chloride 1,000 ml @ 150 mls/hr 1X ONCE IV ; Start 02/16/19 at 19:00; Stop 02/17/19 at 01:39; Status DC Amitriptyline HCl (Elavil) 50 mg QHS PO Last administered on 02/17/19at 22:07; Start 02/16/19 at 21:00 Fludrocortisone Acetate (Florinef) 0.1 mg DAILY PO Last administered on 02/18/19at 08:44; Start 02/17/19 at 09:00 Gabapentin (Neurontin) 600 mg HS PO Last administered on 02/17/19at 22:07; Start 02/16/19 at 21:00 Acetaminophen/ Hydrocodone Bitart (Lortab 5/325) 1 tab PRN Q6HRS PRN PO PAIN; Start 02/16/19 at 20:45 Levothyroxine Sodium (Synthroid) 100 mcg HS PO Last administered on 02/17/19at 22:07; Start 02/16/19 at 21:00 Non-Formulary Medication 1 ea DAILY SQ Last administered on 02/17/19 08:28; Start 02/17/19 at 09:00 Non-Formulary Medication (Lovastatin ) 10 mg HS PO ; Start 02/16/19 at 21:00; Status UNV Midodrine (Proamatine) 10 mg [id number] PO Last administered on 02/18/19 06:29; Start 02/17/19 at 07:00 Insulin Human Lispro (HumaLOG) 0-7 UNITS TIDWMEALS SQ ; Start 02/17/19 at 08:00; Stop 02/17/19 at 09:00; Status DC Dextrose (Dextrose 50%-Water Syringe) 12.5 gm PRN Q15MIN PRN IV SEE COMMENTS; Start 02/16/19 at 20:45 Cetirizine HCl (ZyrTEC) 10 mg PRN DAILY PRN PO ALLERGIES/congestion Last administered on 02/17/19 13:00; Start 02/16/19 at 20:45 Sodium Chloride (Saline Mist Nasal) 1 meagan PRN Q1HR PRN NS NASAL CONGESTION Last administered on 02/17/19at 01:42; Start 02/17/19 at 00:15 Non-Formulary Medication 0-7 UNITS TIDWMEALS SQ Last administered on 02/17/19at 17:00; Start 02/17/19 at 09:00 Non-Formulary Medication 10 ea 1X ONCE SQ Last administered on 02/17/19at 12:10; Start 02/17/19 at 12:00; Stop 02/17/19 at 12:05; Status DC Active Scripts Active Fludrocortisone Acetate 0.1 Mg Tablet 0.1 Mg PO DAILY 30 Days Amitriptyline Hcl 25 Mg Tablet 50 Mg PO QHS 30 Days [place] 5-325 Tablet (Acetaminophen/Hydrocodone Bitart) 1 Each Tablet 0.5 Tab PO Q6-8HRS PRN Reported [Basaglar Insulin ] 30 Units SQ DAILY Ok to take home med per Dr Larson's order Levothyroxine Sodium 100 Mcg Tablet 100 Mcg PO HS [Acetaminophen Pm] 1 Tab PO HS Novolog Flexpen (Insulin Aspart) 100 Unit/1 Ml Insuln.pen 1 Unit SQ TIDAC PER SLIDING SCALE Midodrine Hcl 10 Mg Tablet 10 Mg PO TID Basaglar Kwikpen U-100 (Insulin Glargine,Hum.rec.anlog) 100 Unit/1 Ml Insuln.pen 30 Unit SQ DAILY08 Lovastatin 10 Mg Tablet 10 Mg PO HS Gabapentin (Gabapentin) 300 Mg Capsule 600 Mg PO HS Vitals/I & O Vital Sign - Last 24 Hours 02/17/19 02/17/19 02/17/19 02/17/19 09:30 09:33 09:36 09:45 Pulse 94 94 94 100 B/P (MAP) 184/102 (129) 171/98 (122) 128/72 (90) 98/61 (73) 02/17/19 02/17/19 02/17/19 02/17/19 10:31 13:00 15:00 17:33 Temp 98.0 98.0 Pulse 96 80 101 105 Resp 20 B/P (MAP) 148/87 (107) 140/80 (100) Pulse Ox 98 O2 Delivery Room Air 02/17/19 02/17/19 02/17/19 02/18/19 19:00 20:00 22:34 03:36 Temp 98.0 98.0 98.1 98.0 98.0 98.1 Pulse 104 102 89 Resp 20 20 16 B/P (MAP) 89/52 (64) 148/101 (117) 102/65 (77) Pulse Ox 98 98 96 O2 Delivery Room Air Room Air Room Air Room Air 02/18/19 02/18/19 02/18/19 06:29 06:30 07:30 Pulse 91 91 B/P (MAP) 98/56 98/56 (70) O2 Delivery Room Air Intake and Output 02/17/19 02/17/19 02/18/19 15:00 23:00 07:00 Intake Total 950 ml 740 ml 360 ml Output Total 1100 ml 1200 ml 200 ml Balance -150 ml -460 ml 160 ml PARMINDER LARSON MD Feb 18, 2019 09:00
[2019-02-18] MEDS: [UNRECOGNIZED DRUG - REMARK] SQ SCH (09:10)
[2019-02-18 11:00] VITALS: BP 112/56
--- NOTE | 2019-02-18 14:56 | PDOC3 ---
Discharge Summary Date of Admission: Feb 16, 2019 Date of Discharge: Feb 18, 2019 Follow-Up: 3-5 days Admitting Diagnosis comment: Assessment/Plan Assessment/Plan impression symptomatic orthostatic hypotension with recurrent falls. alberto-hallpike attempted 01/17 without improvement. continue fludricortisone and midodrine. peripheral neuropathy- trial of neurontin hx Atypical chest pain: Acquired hypothyroidism: recent thyroidectomy r/t multinodular goiter. dm1, insulin GERD KASIA on CKD htn multdrug allergies including contrast PT eval cards consulted recent echo normal. also had tilt table normal RUQ DISCOMFORT 02-18 BP REMAINS LABILE, now has ruq pain but states she is ok to go home plan admit cvc bed. cardiology following fall precautions, high risk WENDI HOSE THIGH-HIGH ABD SONO nov 28 min pt exam d/c planning , chart review, > 50% of time spent with exam, chart review, pt care coordination Vitals Vitals Vital Signs Date Time Temp Pulse Resp B/P (MAP) Pulse Ox O2 Delivery O2 Flow Rate FiO2 02/18/19 07:30 Room Air 02/18/19 06:30 91 98/56 (70) 02/18/19 03:36 98.1 16 96 98.1 Physical Exam General: Alert, Oriented X3, Cooperative Heart: Regular rate Lungs: Clear Extremities: No cyanosis FINAL DIAGNOSIS Problems Medical Problems: (1) Hyperglycemia Status: Acute (2) Hypotension Status: Acute (3) Syncope Status: Acute Brief Hospital Course Ms. Wright is a 58 old [sex] who presented with [orthostasis ] CONDITION AT DISCHARGE: Improved Discharge Medications Current Medications Sodium Chloride 1,000 ml @ 1,000 mls/hr 1X ONCE IV Last administered on 02/16/19at 16:40; Start 02/16/19 at 16:45; Stop 02/16/19 at 17:44; Status DC Sodium Chloride 1,000 ml @ 1,000 mls/hr 1X ONCE IV Last administered on 02/16/19at 17:30; Start 02/16/19 at 17:30; Stop 02/16/19 at 18:29; Status DC Sodium Chloride 1,000 ml @ 1,000 mls/hr 1X ONCE IV Last administered on 02/16/19at 18:00; Start 02/16/19 at 18:00; Stop 02/16/19 at 18:59; Status DC Ondansetron HCl (Zofran) 4 mg PRN Q8HRS PRN IV NAUSEA/VOMITING; Start 02/16/19 at 18:00; Stop 02/17/19 at 17:59; Status DC Acetaminophen (Tylenol) 650 mg PRN Q4HRS PRN PO FEVER; Start 02/16/19 at 18:00; Stop 02/17/19 at 17:59; Status DC Sodium Chloride 1,000 ml @ 150 mls/hr 1X ONCE IV ; Start 02/16/19 at 19:00; Stop 02/17/19 at 01:39; Status DC Amitriptyline HCl (Elavil) 50 mg QHS PO Last administered on 02/17/19at 22:07; Start 02/16/19 at 21:00 Fludrocortisone Acetate (Florinef) 0.1 mg DAILY PO Last administered on 02/18/19at 08:44; Start 02/17/19 at 09:00 Gabapentin (Neurontin) 600 mg HS PO Last administered on 02/17/19at 22:07; Start 02/16/19 at 21:00 Acetaminophen/ Hydrocodone Bitart (Lortab 5/325) 1 tab PRN Q6HRS PRN PO PAIN; Start 02/16/19 at 20:45 Levothyroxine Sodium (Synthroid) 100 mcg HS PO Last administered on 02/17/19at 22:07; Start 02/16/19 at 21:00 Non-Formulary Medication 1 ea DAILY SQ Last administered on 02/18/19at 09:10; Start 02/17/19 at 09:00 Non-Formulary Medication (Lovastatin ) 10 mg HS PO ; Start 02/16/19 at 21:00; Status UNV Midodrine (Proamatine) 10 mg [id number] PO Last administered on 02/18/19at 13:03; Start 02/17/19 at 07:00 Insulin Human Lispro (HumaLOG) 0-7 UNITS TIDWMEALS SQ ; Start 02/17/19 at 08:00; Stop 02/17/19 at 09:00; Status DC Dextrose (Dextrose 50%-Water Syringe) 12.5 gm PRN Q15MIN PRN IV SEE COMMENTS; Start 02/16/19 at 20:45 Cetirizine HCl (ZyrTEC) 10 mg PRN DAILY PRN PO ALLERGIES/congestion Last administered on 02/17/19at 13:00; Start 02/16/19 at 20:45 Sodium Chloride (Saline Mist Nasal) 1 meagan PRN Q1HR PRN NS NASAL CONGESTION Last administered on 02/17/19at 01:42; Start 02/17/19 at 00:15 Non-Formulary Medication 0-7 UNITS TIDWMEALS SQ Last administered on 02/18/19at 12:13; Start 02/17/19 at 09:00 Non-Formulary Medication 10 ea 1X ONCE SQ Last administered on 02/17/19at 12:10; Start 02/17/19 at 12:00; Stop 02/17/19 at 12:05; Status DC Active Scripts Active Fludrocortisone Acetate 0.1 Mg Tablet 0.1 Mg PO DAILY 30 Days Amitriptyline Hcl 25 Mg Tablet 50 Mg PO QHS 30 Days [place] 5-325 Tablet (Acetaminophen/Hydrocodone Bitart) 1 Each Tablet 0.5 Tab PO Q6-8HRS PRN Reported [Basaglar Insulin ] 30 Units SQ DAILY Ok to take home med per Dr Larson's order Levothyroxine Sodium 100 Mcg Tablet 100 Mcg PO HS [Acetaminophen Pm] 1 Tab PO HS Novolog Flexpen (Insulin Aspart) 100 Unit/1 Ml Insuln.pen 1 Unit SQ TIDAC PER SLIDING SCALE Midodrine Hcl 10 Mg Tablet 10 Mg PO TID Basaglar Kwikpen U-100 (Insulin Glargine,Hum.rec.anlog) 100 Unit/1 Ml Insuln.pen 30 Unit SQ DAILY08 Lovastatin 10 Mg Tablet 10 Mg PO HS Gabapentin (Gabapentin) 300 Mg Capsule 600 Mg PO HS Vital Signs Vital Signs Date Time Temp Pulse Resp B/P (MAP) Pulse Ox O2 Delivery O2 Flow Rate FiO2 02/18/19 13:03 91 112/56 02/18/19 11:00 98.1 96 Room Air 98.1 02/18/19 03:36 16 Labs Laboratory Tests Test 02/16/19 16:35 02/17/19 03:00 02/17/19 08:23 02/17/19 11:57 White Blood Count 8.8 x10^3/uL (4.0-11.0) 6.7 x10^3/uL (4.0-11.0) Red Blood Count 5.07 x10^6/uL (3.50-5.40) 4.33 x10^6/uL (3.50-5.40) Hemoglobin 13.8 g/dL (12.0-15.5) 11.8 g/dL (12.0-15.5) Hematocrit 41.6 % (36.0-47.0) 35.6 % (36.0-47.0) Mean Corpuscular Volume 82 fL (79-100) 82 fL (79-100) Mean Corpuscular Hemoglobin 27 pg (25-35) 27 pg (25-35) Mean Corpuscular Hemoglobin Concent 33 g/dL (31-37) 33 g/dL (31-37) Red Cell Distribution Width 13.7 % (11.5-14.5) 13.7 % (11.5-14.5) Platelet Count 309 x10^3/uL (140-400) 236 x10^3/uL (140-400) Neutrophils (%) (Auto) 52 % (31-73) 42 % (31-73) Lymphocytes (%) (Auto) 38 % (24-48) 48 % (24-48) Monocytes (%) (Auto) 6 % (0-9) 5 % (0-9) Eosinophils (%) (Auto) 3 % (0-3) 4 % (0-3) Basophils (%) (Auto) 1 % (0-3) 1 % (0-3) Neutrophils # (Auto) 4.5 x10^3/uL (1.8-7.7) 2.8 x10^3/uL (1.8-7.7) Lymphocytes # (Auto) 3.4 x10^3/uL (1.0-4.8) 3.2 x10^3/uL (1.0-4.8) Monocytes # (Auto) 0.5 x10^3/uL (0.0-1.1) 0.4 x10^3/uL (0.0-1.1) Eosinophils # (Auto) 0.3 x10^3/uL (0.0-0.7) 0.3 x10^3/uL (0.0-0.7) Basophils # (Auto) 0.1 x10^3/uL (0.0-0.2) 0.0 x10^3/uL (0.0-0.2) Sodium Level 137 mmol/L (136-145) 142 mmol/L (136-145) Potassium Level 3.9 mmol/L (3.5-5.1) 4.2 mmol/L (3.5-5.1) Chloride Level 99 mmol/L (98-107) 106 mmol/L (98-107) Carbon Dioxide Level 33 mmol/L (21-32) 30 mmol/L (21-32) Anion Gap 5 (6-14) 6 (6-14) Blood Urea Nitrogen 37 mg/dL (7-20) 31 mg/dL (7-20) Creatinine 1.3 mg/dL (0.6-1.0) 0.9 mg/dL (0.6-1.0) Estimated GFR (Cockcroft-Gault) 42.4 64.8 BUN/Creatinine Ratio 28 (6-20) 34 (6-20) Glucose Level 290 mg/dL (70-99) 354 mg/dL (70-99) Calcium Level 9.3 mg/dL (8.5-10.1) 8.7 mg/dL (8.5-10.1) Magnesium Level 1.9 mg/dL (1.8-2.4) Total Bilirubin 0.3 mg/dL (0.2-1.0) 0.2 mg/dL (0.2-1.0) Aspartate Amino Transf (AST/SGOT) 14 U/L (15-37) 14 U/L (15-37) Alanine Aminotransferase (ALT/SGPT) 15 U/L (14-59) 16 U/L (14-59) Alkaline Phosphatase 86 U/L (46-116) 89 U/L (46-116) Creatine Kinase 88 U/L (26-192) Creatine Kinase MB (Mass) 1.2 ng/mL (0.0-3.6) Creatine Kinase MB Relative Index 1.4 % (0-4) Troponin I Quantitative < 0.017 ng/mL (0.000-0.055) QT-Fgw-U-Type Natriuretic Peptide 244 pg/mL (0-124) Total Protein 7.6 g/dL (6.4-8.2) 6.5 g/dL (6.4-8.2) Albumin 3.6 g/dL (3.4-5.0) 3.0 g/dL (3.4-5.0) Albumin/Globulin Ratio 0.9 (1.0-1.7) 0.9 (1.0-1.7) Thyroid Stimulating Hormone (TSH) 36.085 uIU/mL (0.358-3.74) Glucose (Fingerstick) 224 mg/dL (70-99) 261 mg/dL (70-99) Test 02/17/19 17:32 02/17/19 22:03 02/18/19 08:43 02/18/19 11:24 Glucose (Fingerstick) 178 mg/dL (70-99) 256 mg/dL (70-99) 106 mg/dL (70-99) 155 mg/dL (70-99) Laboratory Tests Test 02/17/19 17:32 02/17/19 22:03 02/18/19 08:43 02/18/19 11:24 Glucose (Fingerstick) 178 mg/dL (70-99) 256 mg/dL (70-99) 106 mg/dL (70-99) 155 mg/dL (70-99) Allergies Allergies Coded Allergies Type Severity Reaction Last Updated Verified atorvastatin Allergy Severe throat swells 10/13/18 Yes ciprofloxacin Allergy Severe "THROAT CLOSES UP" ANAPHYLAXIS 10/13/18 Yes hydroxyzine Allergy Severe DIZZINESS, "I FEEL LIKE IM DRUNK" 10/13/18 Yes raspberry Allergy Severe CHOKING SENSATION IN THROAT 10/13/18 Yes tramadol Allergy Severe VOMITING 10/13/18 Yes amoxicillin Allergy Intermediate 10/13/18 Yes aspirin Allergy Intermediate 10/13/18 Yes cephalexin Allergy Intermediate 10/13/18 Yes codeine Allergy Intermediate 10/13/18 Yes ibuprofen Allergy Intermediate 10/13/18 Yes morphine Allergy Intermediate 10/13/18 Yes simvastatin Allergy Intermediate 10/13/18 Yes sucralose Allergy Intermediate 11/09/18 Yes lidocaine Allergy Mild 12/02/18 Yes pregabalin Allergy Mild vomiting 10/13/18 Yes Disposition/Orders: D/C to Home Patient Instructions d/c planning 28 min PARMINDER LARSON MD Feb 18, 2019 14:56
[2019-02-18] MEDS ORDERED: CETI10TA16 PO (14:58)
[2019-02-18] MEDS ORDERED: SODI44SP NS (14:58)
--- NOTE | 2019-02-18 14:59 | DISCH ---
DISCHARGE INSTRUCTIONS Condition on Discharge Condition on Discharge: Stable Activity After Discharge Activity Instructions for Disc: Activity as tolerated Bathing Instructions: Shower-keep dressing dry Lifting Instructions after Dis: No heavy lifting, No pulling or pushing Exercise Instruction after Dis: Progress as tolerated Driving Instructions after Dis: Do not drive, Do not drive today Weight Bearing Status after Di: No restrictions, Full weight bearing, As tolerated Diet after Discharge Diet after Discharge: Diabetic No Calorie Level Diet Texture: Regular Liquid Texture: Thin Liquid Swallowing Supervision: None needed Wound Incision Care Wound/Incision Care: No wound care needed Wound Care Equipment: Dressings Checks after Discharge Checks after discharge: Check blood press - daily, Check blood sugar, ac/hs Contacting the DR. after DC Call your doctor for: Concerns you may have Treatment/Equipment after DC Adaptive Equipment Issued: None PARMINDER LARSON MD Feb 18, 2019 14:59
[2019-02-18 15:00] VITALS: BP 120/56
--- NOTE | 2019-02-18 15:44 | NUR ---
Patient discharged to home. DC instructions given and patient verbalized understanding. PIV and heart monitor removed. Awaits to a cab for a ride home.
--- NOTE | 2019-02-18 18:11 | NUR ---
Patient is still waiting fo a cab ride. Nurse called cab company three times to check status and was told 15-20min waiting time.
--- NOTE | 2019-02-18 18:30 | NUR ---
Cab here, escorted patient to front entrance per wheelchair into a cab.
== END 2019-02-18 18:30 | disposition home or self-care (01) | DRG 312 ==
LOC: ER 16:19 → 2 NORTH 17:40
PROVIDERS: ADMIT Family Medicine; ATTEND Family Medicine
DX: I95.1 Orthostatic hypotension (principal); N17.9 Acute kidney failure, unspecified; E78.00 Pure hypercholesterolemia, unspecified; E03.9 Hypothyroidism, unspecified; E78.5 Hyperlipidemia, unspecified; J44.9 Chronic obstructive pulmonary disease, unspecified; M19.90 Unspecified osteoarthritis, unspecified site; R29.6 Repeated falls; K21.9 Gastro-esophageal reflux disease without esophagitis; E10.42 Type 1 diabetes mellitus with diabetic polyneuropathy; N18.9 Chronic kidney disease, unspecified; E10.22 Type 1 diabetes mellitus with diabetic chronic kidney disease; I12.9 Hypertensive chronic kidney disease with stage 1 through stage 4 chronic kidney disease, or unspecified chronic kidney disease; Z88.6 Allergy status to analgesic agent; Z88.5 Allergy status to narcotic agent; Z88.0 Allergy status to penicillin; Z91.018 Allergy to other foods; Z88.8 Allergy status to other drugs, medicaments and biological substances; Z79.4 Long term (current) use of insulin; Z83.3 Family history of diabetes mellitus; Z86.73 Personal history of transient ischemic attack (TIA), and cerebral infarction without residual deficits
CPT/HCPCS: 36415; 70450; 71045; 80053; 82553; 82962; 83735; 83880; 84443; 84484; 85025; 93005; J1815; J7030; 97110; 97535; G0378

== ENCOUNTER 2019-02-28 09:14 | Emergency (ER) | payer OTHER ==
[~2019-02-28] VITALS: Ht 175.3 cm; Wt 67.1 kg
[~2019-02-28 09:14] MED LIST changes: -DOXY100T PO
[2019-02-28] MEDS ORDERED: IV NORMAL SALINE 1000ML BAG 1,000 ML IV SCH (10:38)
--- NOTE | 2019-02-28 10:45 | PHYS DOC ---
Past Medical History Past Medical History: Diabetes-Type I, High Cholesterol, Hypothyroid, Hypotension, Stroke, Other Additional Past Medical Histor: NEUROPATHY, ORTHOSTATIC HYPOTENSION Past Surgical History: Other Additional Past Surgical Histo: L BREAST L FOOT R KNEE Alcohol Use: None Drug Use: None Adult General Chief Complaint Chief Complaint: ABDOMINAL PAIN HPI HPI Patient is a 58-year-old female who presents to the emergency department for evaluation. She had an outpatient ultrasound today done at the diagnostic imaging center down the block from the hospital, on her abdomen/right upper quadrant/gallbladder. She states she does not know the results, but she has been having left-sided flank and abdominal pain which began pretty suddenly after she left the ultrasound facility. She is NOT having any right upper quadrant pain at this time. She has not had any nausea or vomiting. She also reports development of redness and pain on the anterior aspect of her right knee, where it appears she has a cellulitis or is developing an abscess. 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 She has a history of diabetes, and has been admitted to this facility numerous times in the past. There are no alleviating or exacerbating factors to her symptoms otherwise. Review of Systems Review of Systems Constitutional: Denies fever or chills [] Eyes: Denies change in visual acuity, redness, or eye pain [] HENT: Denies nasal congestion or sore throat [] Respiratory: Denies cough or shortness of breath [] Cardiovascular: The patient denies any shortness of breath, chest pain, palpitations, or orthopnea [] GI: Denies nausea, vomiting, bloody stools or diarrhea [] : Denies dysuria or hematuria [] Musculoskeletal: Denies back pain or joint pain other than the right knee. [] Integument: Denies rash or skin lesions, other than the right knee. [] Neurologic: Denies headache, focal weakness or sensory changes [] Endocrine: Denies polyuria or polydipsia [] All other systems were reviewed and found to be within normal limits, except as documented in this note. Current Medications Current Medications Current Medications Medications (Trade) Dose Ordered Sig/[place] Start Time Stop Time Status Last Admin Dose Admin Bupivacaine HCl/ Epinephrine Bitart (Sensorcain-Epi 0.5%-1:075745 Mpf) 30 ml 1X ONCE 02/28/19 11:15 02/28/19 11:16 UNV Chloroprocaine HCl (Nesacaine 3% Mpf) 20 ml 1X ONCE 02/28/19 11:45 02/28/19 11:46 DC 02/28/19 11:54 20 ML Clindamycin Phosphate 50 ml @ 100 mls/hr 1X ONCE 02/28/19 12:15 02/28/19 12:44 DC 02/28/19 12:18 100 MLS/HR Fentanyl Citrate (Fentanyl 2ml Vial) 50 mcg 1X ONCE 02/28/19 13:45 02/28/19 13:46 UNV Lidocaine/ Epinephrine (LIDOCAINE 1%-EPI 1:100,000 Multi-Dose) 20 ml 1X ONCE 02/28/19 11:15 02/28/19 11:42 DC Sodium Chloride 1,000 ml @ 1,000 mls/hr Q1H 02/28/19 10:38 02/28/19 11:37 DC 02/28/19 12:02 1,000 MLS/HR Allergies Allergies Allergies Coded Allergies Type Severity Reaction Last Updated Verified atorvastatin Allergy Severe throat swells 10/13/18 Yes ciprofloxacin Allergy Severe "THROAT CLOSES UP" ANAPHYLAXIS 10/13/18 Yes hydroxyzine Allergy Severe DIZZINESS, "I FEEL LIKE IM DRUNK" 10/13/18 Yes lidocaine Allergy Severe THROAT SWELLING 02/28/19 Yes raspberry Allergy Severe CHOKING SENSATION IN THROAT 10/13/18 Yes tramadol Allergy Severe VOMITING 10/13/18 Yes amoxicillin Allergy Intermediate 10/13/18 Yes aspirin Allergy Intermediate 10/13/18 Yes cephalexin Allergy Intermediate 10/13/18 Yes codeine Allergy Intermediate 10/13/18 Yes ibuprofen Allergy Intermediate 10/13/18 Yes morphine Allergy Intermediate 10/13/18 Yes simvastatin Allergy Intermediate 10/13/18 Yes sucralose Allergy Intermediate 11/09/18 Yes pregabalin Allergy Mild vomiting 10/13/18 Yes Physical Exam Physical Exam PHYSICAL EXAM: CONSTITUTIONAL: Well developed, well nourished HEAD: normocephalic, atraumatic EENT: PERRL, EOMI. Conjunctivae normal color, sclerae non-icteric; moist mucous membranes. NECK: Supple, non-tender; no meningismus. LUNGS: Lungs CTA, breathing even and unlabored. Normal air movement. HEART: Regular rate and rhythm, no murmur CHEST: No deformity; non-tender ABDOMEN: The abdomen is soft, there is left upper quadrant tenderness to palpation, without rebound or guarding. The right upper quadrant is nontender, Ugarte sign is absent. The remainder the abdomen is relatively soft and non- tender, no masses or bruits. EXTREM: Normal ROM; no deformity, no calf tenderness. Normal pulses palpable in all extremities. There is no pedal edema. On the anterior aspect of the right knee, there is soft tissue edema, with erythema, consistent with cellulitis, and some firmness suggesting development of a prepatellar or cutaneous abscess in this area. There is no knee joint edema. The patellofemoral joint has normal range of motion. The remainder the extremities are unremarkable, with the exception of several small scattered scabs, as with the patient's history of jayjay betes and lung difficulties. SKIN: No rash; no diaphoresis NEURO: Alert; normal speech and cognition; CN's grossly intact; strength grossly intact without focal deficit. BACK: There is mild left-sided CVA TTP. Current Patient Data Vital Signs Vital Signs Date Time Temp Pulse Resp B/P (MAP) Pulse Ox O2 Delivery O2 Flow Rate FiO2 02/28/19 10:05 97.7 86 20 90/55 (67) 99 Room Air 97.7 Lab Values Laboratory Tests Test 02/28/19 11:00 02/28/19 12:58 White Blood Count 10.8 x10^3/uL (4.0-11.0) Red Blood Count 3.80 x10^6/uL (3.50-5.40) Hemoglobin 10.6 g/dL (12.0-15.5) L Hematocrit 31.3 % (36.0-47.0) L Mean Corpuscular Volume 82 fL (79-100) Mean Corpuscular Hemoglobin 28 pg (25-35) Mean Corpuscular Hemoglobin Concent 34 g/dL (31-37) Red Cell Distribution Width 13.3 % (11.5-14.5) Platelet Count 252 x10^3/uL (140-400) Neutrophils (%) (Auto) 73 % (31-73) Lymphocytes (%) (Auto) 18 % (24-48) L Monocytes (%) (Auto) 7 % (0-9) Eosinophils (%) (Auto) 1 % (0-3) Basophils (%) (Auto) 1 % (0-3) Neutrophils # (Auto) 7.9 x10^3/uL (1.8-7.7) H Lymphocytes # (Auto) 1.9 x10^3/uL (1.0-4.8) Monocytes # (Auto) 0.8 x10^3/uL (0.0-1.1) Eosinophils # (Auto) 0.1 x10^3/uL (0.0-0.7) Basophils # (Auto) 0.1 x10^3/uL (0.0-0.2) Sodium Level 139 mmol/L (136-145) Potassium Level 3.7 mmol/L (3.5-5.1) Chloride Level 100 mmol/L (98-107) Carbon Dioxide Level 31 mmol/L (21-32) Anion Gap 8 (6-14) Blood Urea Nitrogen 24 mg/dL (7-20) H Creatinine 1.3 mg/dL (0.6-1.0) H Estimated GFR (Cockcroft-Gault) 42.4 BUN/Creatinine Ratio 18 (6-20) Glucose Level 120 mg/dL (70-99) H Lactic Acid Level 1.4 mmol/L (0.4-2.0) Calcium Level 9.3 mg/dL (8.5-10.1) Total Bilirubin 0.5 mg/dL (0.2-1.0) Aspartate Amino Transferase (AST) 12 U/L (15-37) L Alanine Aminotransferase (ALT) 15 U/L (14-59) Alkaline Phosphatase 118 U/L (46-116) H Total Protein 7.9 g/dL (6.4-8.2) Albumin 2.9 g/dL (3.4-5.0) L Albumin/Globulin Ratio 0.6 (1.0-1.7) L Lipase 90 U/L (73-393) Urine Collection Type U cath Urine Color Lory Urine Clarity Clear Urine pH 5.5 Urine Specific [place] 1.025 Urine Protein >=300 mg/dL (NEG-TRACE) Urine Glucose (UA) >=1000 mg/dL (NEG) Urine Ketones (Stick) Negative mg/dL (NEG) Urine Blood Small (NEG) Urine Nitrite Negative (NEG) Urine Bilirubin Small (NEG) Urine Urobilinogen Dipstick 1.0 mg/dL (0.2 mg/dL) Urine Leukocyte Esterase Negative (NEG) Urine RBC 6-10 /HPF (0-2) Urine WBC 5-10 /HPF (0-4) Urine Transitional Epithelial Cells Few /LPF Urine Renal Epithelial Cells Occ /LPF Urine Amorphous Sediment Present /HPF Urine Bacteria 0 /HPF (0-FEW) Urine Hyaline Casts Many /HPF Urine Granular Casts Few /HPF Urine Mucus Mod /LPF Laboratory Tests 02/28/19 11:00 Laboratory Tests 02/28/19 11:00 Microbiology EKG EKG [] Radiology/Procedures Radiology/Procedures PROCEDURE: CT ABDOMEN PELVIS WO CONTRAST Examination: CT of the abdomen pelvis without contrast HISTORY: History of left flank pain COMPARISON: July 2017 TECHNIQUE: Axial CT images of the abdomen and pelvis were performed without contrast. Coronal and sagittal reformats are performed Exposure: One or more of the following individualized dose reduction techniques were utilized for this examination: 1. Automated exposure control 2. Adjustment of the mA and/or kV according to patient size 3. Use of iterative reconstruction technique FINDINGS: The bibasilar lungs are clear. No evidence of free air identified in the abdomen. The evaluation of the solid organs is limited due to lack of IV contrast. The evaluation of bowel is limited due to lack of oral contrast. The visualized noncontrasted liver, spleen, adrenals grossly appears unremarkable. The gallbladder is mildly distended. The stomach is minimally distended. Faint minimal fat stranding identified about the pancreas. The small bowel is nondilated. Feces and gas noted in the colon. The appendix is normal. Minimal fat stranding identified about the bilateral kidneys. No evidence of hydronephrosis. Urinary bladder is mildly distended. Moderate aortic atherosclerosis. Moderate degenerative changes visualized thoracolumbar spine. IMPRESSION: 1. Mild fat stranding identified about the bilateral kidneys could be due to urinary tract infection. Correlate with urine analysis. 2. Subtle questionable fat stranding identified about the pancreas probably secondary to artifact and less likely pancreatitis. Correlate with lab values. [] Course & Med Decision Making Course & Med Decision Making Pertinent Labs and Imaging studies reviewed. (See chart for details) [] INCISION AND DRAINAGE PROCEDURE NOTE: The right knee was prepped with Betadine and anesthetized the size with local anesthetic. A 1 cm incision was made transversely in the most fluctuant portion of the abscess, and a large amount of pus was drained from the wound. Wound culture was obtained. The wound was probed with a blunt forceps and packed with iodoform packing. The patient tolerated the procedure well. 1:45 PM: The patient's condition remains stable. I discussed test results with the patient, the need for close follow-up, including her urinalysis results of the for further outpatient evaluation of her renal function by her PCP, we discussed wound care, packing changes, and return precautions. Dragon Disclaimer Dragon Disclaimer This electronic medical record was generated, in whole or in part, using a voice recognition dictation system. Departure Departure Impression: Primary Impression: Cutaneous abscess Additional Impression: Abdominal pain Disposition: HOME, SELF-CARE Condition: STABLE Referrals: ROWENA CUNNINGHAM MD (PCP) Patient Instructions: Abdominal Pain, Abscess, Abscess, Care After, Incision and Drainage Additional Instructions: Change the packing once daily for the next 5-7 days. Return to medical care for any new or worsening symptoms, development of dizziness, lightheadedness, nausea, vomiting, or any other new, or concerning symptoms. Scripts Doxycycline Hyclate (DOXYCYCLINE HYCLATE) 100 Mg Tablet 1 TAB PO BID, #14 TAB Prov: ANGELA TORRES MD 02/28/19 Problem Qualifiers ANGELA TORRES MD Feb 28, 2019 10:45
[2019-02-28 11:11] LABS: BASO # 0.1 x10^3/uL (0.0-0.2); BASO % 1 % (0-3); EOS # 0.1 x10^3/uL (0.0-0.7); EOS % 1 % (0-3); HEMATOCRIT 31.3 % (36.0-47.0); HEMOGLOBIN 10.6 g/dL (12.0-15.5); LYMPH # 1.9 x10^3/uL (1.0-4.8); LYMPH % 18 % (24-48); MEAN CORPUSCULAR HEMOGLOBIN 28 pg (25-35); MEAN CORPUSCULAR HGB CONC 34 g/dL (31-37); MEAN CORPUSCULAR VOLUME 82 fL (79-100); MONO # 0.8 x10^3/uL (0.0-1.1); MONO % 7 % (0-9); NEUT # 7.9 x10^3/uL (1.8-7.7); NEUT % 73 % (31-73); PLATELET COUNT 252 x10^3/uL (140-400); RED CELL DISTRIBUTION WIDTH 13.3 % (11.5-14.5); WHITE BLOOD COUNT 10.8 x10^3/uL (4.0-11.0)
[2019-02-28] MEDS ORDERED: LIDOCAINE 1%/EPI 1:100,000 20 ML VIAL. INJ ONE (11:15)
[2019-02-28] MEDS ORDERED: BUPIVACAINE-EPI 0.5%-1:200000 MPF 30 ML VIAL. INJ ONE (11:15)
[2019-02-28 11:26] LABS: CALCIUM 9.3 mg/dL (8.5-10.1); CREATININE 1.3 mg/dL (0.6-1.0); GFR 42.4; POTASSIUM 3.7 mmol/L (3.5-5.1)
[2019-02-28 11:31] LABS: ALBUMIN 2.9 g/dL (3.4-5.0); ALBUMIN/GLOBULIN RATIO 0.6 (1.0-1.7); TOTAL BILIRUBIN 0.5 mg/dL (0.2-1.0); TOTAL PROTEIN 7.9 g/dL (6.4-8.2)
[2019-02-28] MEDS ORDERED: CHLOROPROCAINE 3% MPF 20 ML VIAL. IJ ONE (11:45)
--- NOTE | 2019-02-28 12:14 | RAD ---
Examination: CT of the abdomen pelvis without contrast HISTORY: History of left flank pain COMPARISON: July 2017 TECHNIQUE: Axial CT images of the abdomen and pelvis were performed without contrast. Coronal and sagittal reformats are performed Exposure: One or more of the following individualized dose reduction techniques were utilized for this examination: 1. Automated exposure control 2. Adjustment of the mA and/or kV according to patient size 3. Use of iterative reconstruction technique FINDINGS: The bibasilar lungs are clear. No evidence of free air identified in the abdomen. The evaluation of the solid organs is limited due to lack of IV contrast. The evaluation of bowel is limited due to lack of oral contrast. The visualized noncontrasted liver, spleen, adrenals grossly appears unremarkable. The gallbladder is mildly distended. The stomach is minimally distended. Faint minimal fat stranding identified about the pancreas. The small bowel is nondilated. Feces and gas noted in the colon. The appendix is normal. Minimal fat stranding identified about the bilateral kidneys. No evidence of hydronephrosis. Urinary bladder is mildly distended. Moderate aortic atherosclerosis. Moderate degenerative changes visualized thoracolumbar spine. IMPRESSION: 1. Mild fat stranding identified about the bilateral kidneys could be due to urinary tract infection. Correlate with urine analysis. 2. Subtle questionable fat stranding identified about the pancreas probably secondary to artifact and less likely pancreatitis. Correlate with lab values. Electronically signed by: Ananth Arevalo MD (02/28/2019 12:11 PM) [id number]
[2019-02-28] MEDS ORDERED: CLINDAMYCIN 900MG PREMIX 50 ML IV ONE (12:15)
[2019-02-28 13:13] LABS: BILIRUBIN,URINE SMALL (NEG); CLARITY,URINE CLEAR; COLOR,URINE AMBER; NITRITE,URINE NEGATIVE (NEG); PH,URINE 5.5; PROTEIN,URINE >=300 mg/dL (NEG-TRACE)
[2019-02-28 13:20] LABS: HYALINE CASTS, URINE MANY /HPF
[2019-02-28 13:22] LABS: AMORPHOUS SEDIMENT,UR PRESENT /HPF; BACTERIA,URINE 0 /HPF (0-FEW); GRANULAR CASTS,URINE FEW /HPF
[2019-02-28] MEDS ORDERED: DOXY100T PO (13:44)
[2019-02-28] MEDS ORDERED: fentaNYL PF VIAL 100 MCG/2 ML VIAL IVP ONE (13:45)
[2019-02-28 13:54] VITALS: BP 124/66
--- NOTE | 2019-03-07 16:39 | VNOTE ---
CALL BACK NOTE CALL BACK Microbiology 02/28/19 Urine Culture - Final, Complete 02/28/19 Urine Culture Result 1 (GALILEA) - Final, Complete 02/28/19 Blood Culture - Final, Complete NO GROWTH AFTER 5 DAYS 02/28/19 Anaerobic/Aerobic Culture - Final, Complete 02/28/19 Anaerobic Culture Result 1 (GALILEA) - Final, Complete 02/28/19 Aerobic Culture - Final, Complete 02/28/19 Aerobic Culture Result 1 (GALILEA) - Final, Complete 02/28/19 Antimicrobic Susceptibility - Final, Complete 02/28/19 Gram Stain - Final, Complete 02/28/19 Gram Stain Result 1 (GALILEA) - Final, Complete 02/28/19 Gram Stain Result 2 (GALILEA) - Final, Complete Patient was placed on doxycycline for infection on the knee, she is resistant to tetracyclines, called patient had left voicemail SHARONDA DIAZ APRN Mar 07, 2019 16:39
== END 2019-02-28 13:55 | disposition home or self-care (01) ==
LOC: ER 09:14
DX: L02.415 Cutaneous abscess of right lower limb (principal); R10.12 Left upper quadrant pain; E78.00 Pure hypercholesterolemia, unspecified; E03.9 Hypothyroidism, unspecified; E10.40 Type 1 diabetes mellitus with diabetic neuropathy, unspecified; Z86.73 Personal history of transient ischemic attack (TIA), and cerebral infarction without residual deficits; Z88.1 Allergy status to other antibiotic agents; Z88.4 Allergy status to anesthetic agent; Z88.8 Allergy status to other drugs, medicaments and biological substances; Z88.6 Allergy status to analgesic agent; Z88.5 Allergy status to narcotic agent; Z91.018 Allergy to other foods
CPT/HCPCS: 10060; 36415; 74176; 80053; 81001; 83605; 83690; 85025; 87040; 87071; 87075; 87086; 96365; 96375; 99285; J3010; J3490; J7030; 87186

== ENCOUNTER → 2019-02-28 | Outpatient (CLI) | payer OTHER ==
[2019-02-18 15:00] VITALS: BP 120/56
[~2019-02-28] MED LIST changes: +BASAGLAR INSULIN SQ; +CETI10TA16 PO; +DOXY100T PO; +LEVO100T5 PO; +SODI44SP NS
--- NOTE | 2019-02-28 10:18 | KCIC ---
EXAM: RIGHT UPPER QUADRANT ULTRASOUND. HISTORY: Right upper quadrant pain. COMPARISON: 11/09/2018. FINDINGS: Sonographic evaluation of the right upper quadrant was performed. Mildly increased hepatic parenchymal echogenicity suggests mild diffuse hepatic steatosis. The liver is at least mildly enlarged spanning 19 cm. There are no focal lesions. The gallbladder is unremarkable without evidence of stones, wall thickening or pericholecystic fluid. There is no sonographic Ugarte sign. The common duct measures 5 mm. The visualized portions of the head of the pancreas reveal no abnormality. The right kidney measures 12.6 cm. Cortical thickness and echogenicity are preserved. There is no hydronephrosis. The visualized portions of the abdominal aorta and inferior vena cava are grossly patent and normal in caliber. IMPRESSION: 1. Hepatomegaly. Possible mild diffuse hepatic steatosis. Electronically signed by: Keith Nunez MD (02/28/2019 10:15 AM) [facility]
== END | disposition home or self-care (01) ==
LOC: KCIC US 07:51
PROVIDERS: ATTEND Family Medicine
DX: R16.0 Hepatomegaly, not elsewhere classified (principal)
CPT/HCPCS: 76705

== ENCOUNTER 2019-03-14 11:29 | Emergency (ER) | payer OTHER ==
[~2019-03-14] VITALS: Ht 165.1 cm; Wt 67.1 kg
[~2019-03-14 11:29] MED LIST changes: +DOXY100T PO
[2019-03-14 11:55] VITALS: BP 130/75
[2019-03-14] MEDS ORDERED: KETOROLAC 30 MG/ML VIAL. IM ONE (12:15)
--- NOTE | 2019-03-14 12:26 | ED.ADGEN ---
Past Medical History Past Medical History: Diabetes-Type I, High Cholesterol, Hypothyroid, Hyp otension, Stroke, Other Additional Past Medical Histor: NEUROPATHY, ORTHOSTATIC HYPOTENSION Past Surgical History: Other Additional Past Surgical Histo: L BREAST L FOOT R KNEE Alcohol Use: None Drug Use: None Adult General Chief Complaint Chief Complaint: PAIN CONTROL HPI HPI Patient is a 58 year old F who presents with exacerbation of chronic left hip and left shoulder/arm pain after Gabapentin being dc'ed per Dr. Teran yesterday and new prescription for Cymbalta initiated. States that she requested a different pain medication from PCP as Gabapentin makes her "too snowed to do anything but sleep all the time". Given Cymbalta and states that within an hour of taking med last night she vomited several times. She got up during the noc and checked her blood sugar and found it at 69mg/dl. Patient states that nausea was resolved at that time and that she was able to eat a sandwich and return to sleep. Woke this am feeling WNL and took second dose of Cymbalta and again vomited within the hour. States that pain is now uncontrolled at this time. Does have a current prescription for Hydrocodone which she does not like to use because it makes her too sleepy. Says that she has not taken anything for pain which is now out of control. Review of Systems Review of Systems Constitutional: Denies fever or chills. Eyes: Denies change in visual acuity. HENT: Denies nasal congestion or sore throat. Respiratory: Denies cough or shortness of breath. Cardiovascular: Denies chest pain or edema. GI: Denies abdominal pain, no current nausea/vomiting, bloody stools or diarrhea. Musculoskeletal: Complains of exacerbation of chronic left hip/ arm and shoulder pain after discontinuing Gabapentin yesterday and starting on Cymbalta. Patient has also stopped taking prescribed Hydrocodone that was given to her last week due to excessive drowsiness with all meds combined. Integument: Denies rash. Neurologic: Denies headache, focal weakness or sensory changes. Endocrine: Denies polyuria or polydipsia. Lymphatic: Denies swollen glands. Psychiatric: Denies depression or anxiety. Current Medications Current Medications Current Medications Medications (Trade) Dose Ordered Sig/[place] Start Time Stop Time Status Last Admin Dose Admin Ketorolac Tromethamine (Toradol 30mg Vial) 30 mg 1X ONCE 03/14/19 12:15 03/14/19 12:16 DC 03/14/19 12:19 30 MG Allergies Allergies Allergies Coded Allergies Type Severity Reaction Last Updated Verified atorvastatin Allergy Severe throat swells 10/13/18 Yes ciprofloxacin Allergy Severe "THROAT CLOSES UP" ANAPHYLAXIS 10/13/18 Yes hydroxyzine Allergy Severe DIZZINESS, "I FEEL LIKE IM DRUNK" 10/13/18 Yes lidocaine Allergy Severe THROAT SWELLING 02/28/19 Yes raspberry Allergy Severe CHOKING SENSATION IN THROAT 10/13/18 Yes tramadol Allergy Severe VOMITING 10/13/18 Yes amoxicillin Allergy Intermediate 10/13/18 Yes aspirin Allergy Intermediate 10/13/18 Yes cephalexin Allergy Intermediate 10/13/18 Yes codeine Allergy Intermediate 10/13/18 Yes ibuprofen Allergy Intermediate 10/13/18 Yes morphine Allergy Intermediate 10/13/18 Yes simvastatin Allergy Intermediate 10/13/18 Yes sucralose Allergy Intermediate 11/09/18 Yes pregabalin Allergy Mild vomiting 10/13/18 Yes Physical Exam Physical Exam Constitutional: Well developed, well nourished, no acute distress, non-toxic appearance. HENT: Normocephalic, atraumatic, bilateral external ears normal, oropharynx moist, no oral exudates, nose normal. Eyes: PERRLA, EOMI, conjunctiva normal, no discharge. Neck: Normal range of motion, no tenderness, supple, no stridor. Cardiovascular:Heart rate regular rhythm, no murmur. Lungs & Thorax: Bilateral breath sounds clear to auscultation. Abdomen: Bowel sounds normal, soft, no tenderness, no masses, no pulsatile masses. Skin: Warm, dry, no erythema, no rash. Back: No tenderness, no CVA tenderness. Extremities: Left hip with limited ROM secondary to pain. Neurovascular intact. No cyanosis, no edema. Left shoulder and arm pain tender to palp without edema/ecchymosis noted. Neurologic: Alert and oriented X 3, normal motor function, normal sensory function, no focal deficits noted. [] Psychologic: Affect normal, judgement normal, mood normal. [] Current Patient Data Vital Signs Vital Signs Date Time Temp Pulse Resp B/P (MAP) Pulse Ox O2 Delivery O2 Flow Rate FiO2 03/14/19 11:55 98.0 83 16 130/75 (93) 95 Room Air 98.0 EKG EKG [] Radiology/Procedures Radiology/Procedures [] Course & Med Decision Making Course & Med Decision Making Patient reports that she recently had Xray of L hip one week ago secondary to worsening pain with ambulation - states films were "fine" and denies any new injuries or trauma since that appointment. Patient is not requesting any new medications and states that she is trying, al shagufta with Dr. Yeboah, to find a medication combination to control pain without making her feel lethargic and markedly sleepy all the time. She called and left message with office today [employer] to inform them of her reaction to Cymbalta and states that she is just behind on her pain control. No new findings today after exam per patient report. She says "I just hurt all the time and today it was too much for my to leave me at home." Patient instructed to discontinue taking Cymbalta immediately. Patient to speak with Dr. Teran's office regarding inability to tolerate new medication and to make appointment to discuss other options. In the meantime, as Gabapentin combined with her Amitriptyline does effectively control pain, she can start meds again in the interim. Jennifer Disclaimer Jennifer Disclaimer GABRIEL VALERIO NP Mar 14, 2019 12:26
== END 2019-03-14 13:08 | disposition home or self-care (01) ==
LOC: ER 11:29
DX: G89.29 Other chronic pain (principal); M25.552 Pain in left hip; M25.512 Pain in left shoulder; R11.2 Nausea with vomiting, unspecified; E78.00 Pure hypercholesterolemia, unspecified; E03.9 Hypothyroidism, unspecified; E10.40 Type 1 diabetes mellitus with diabetic neuropathy, unspecified; Z86.73 Personal history of transient ischemic attack (TIA), and cerebral infarction without residual deficits; Z88.1 Allergy status to other antibiotic agents; Z88.5 Allergy status to narcotic agent; Z88.4 Allergy status to anesthetic agent; Z88.6 Allergy status to analgesic agent; Z88.8 Allergy status to other drugs, medicaments and biological substances; Z91.018 Allergy to other foods
CPT/HCPCS: 96372; 99283; J1885

== ENCOUNTER 2019-03-29 13:26 | Emergency (ER) | payer OTHER ==
[~2019-03-29] VITALS: Ht 175.3 cm; Wt 67.1 kg
[2019-03-29] MEDS ORDERED: ONDANSETRON PF 4 MG/2 ML VIAL. IV ONE (14:00)
[2019-03-29] MEDS ORDERED: fentaNYL PF VIAL 100 MCG/2 ML VIAL IVP ONE (14:00)
[2019-03-29 14:08] LABS: BASO # 0.1 x10^3/uL (0.0-0.2); BASO % 1 % (0-3); EOS # 0.2 x10^3/uL (0.0-0.7); EOS % 4 % (0-3); HEMATOCRIT 35.6 % (36.0-47.0); HEMOGLOBIN 11.7 g/dL (12.0-15.5); LYMPH # 1.7 x10^3/uL (1.0-4.8); LYMPH % 25 % (24-48); MEAN CORPUSCULAR HEMOGLOBIN 27 pg (25-35); MEAN CORPUSCULAR HGB CONC 33 g/dL (31-37); MEAN CORPUSCULAR VOLUME 83 fL (79-100); MONO # 0.5 x10^3/uL (0.0-1.1); MONO % 7 % (0-9); NEUT # 4.2 x10^3/uL (1.8-7.7); NEUT % 64 % (31-73); PLATELET COUNT 233 x10^3/uL (140-400); RED BLOOD COUNT 4.28 x10^6/uL (3.50-5.40); RED CELL DISTRIBUTION WIDTH 14.2 % (11.5-14.5); WHITE BLOOD COUNT 6.7 x10^3/uL (4.0-11.0)
[2019-03-29 14:10] VITALS: BP 197/108
[2019-03-29 14:17] LABS: CALCIUM 9.3 mg/dL (8.5-10.1); CREATININE 0.7 mg/dL (0.6-1.0); GFR 86.6; POTASSIUM 3.5 mmol/L (3.5-5.1)
--- NOTE | 2019-03-29 14:21 | PHYS DOC ---
Past Medical History Past Medical History: Diabetes-Type I, High Cholesterol, Hypothyroid, Hypotension, Stroke, Other Additional Past Medical Histor: NEUROPATHY, ORTHOSTATIC HYPOTENSION Past Surgical History: Other Additional Past Surgical Histo: L BREAST L FOOT R KNEE Alcohol Use: None Drug Use: None Adult General Chief Complaint Chief Complaint: HEADACHE HPI HPI Patient is a 58 year old female patient with history of orthostatic hypotension, hypothyroidism, type 1 diabetes, neuropathy, CVA who presents via EMS with complaining of headache. Patient states she had an accidental fall yesterday without head injury and was seen at [facility] for rib and hip pain and treated with Toradol and complaining of headache since she had the pain medication. Patient states the pain is a throbbing pain in left frontal temporal area and rated her pain 10 over 10 and states she had nausea and vomited today. Patient complaining of photophobia without new focal neuro deficit, fever and chills, neck pain, head injury. Patient states she has had migraine headache but her last episode of migraine headache was about 10 years ago and this episode is the same as her previous episodes of migraine headache. EMS reported that she had blood pressure more than 200 without history of hypertension. Patient had blood pressure of 201/110 at arrival to ER. Review of Systems Review of Systems Constitutional: Denies fever or chills [] Eyes: Denies change in visual acuity, redness, or eye pain [] HENT: Denies nasal congestion or sore throat [] Respiratory: Denies cough or shortness of breath [] Cardiovascular: No additional information not addressed in HPI [] GI: Denies abdominal pain, bloody stools or diarrhea and reports nausea and vomiting [] : Denies dysuria or hematuria [] Musculoskeletal: Denies back pain or joint pain [] Integument: Denies rash or skin lesions [] Neurologic: Denies focal weakness or sensory changes, reports headache[] Endocrine: Denies polyuria or polydipsia [] All other systems were reviewed and found to be within normal limits, except as documented in this note. Current Medications Current Medications Current Medications Medications (Trade) Dose Ordered Sig/[place] Start Time Stop Time Status Last Admin Dose Admin Fentanyl Citrate (Fentanyl 2ml Vial) 50 mcg 1X ONCE 03/29/19 14:00 03/29/19 14:03 DC 03/29/19 14:08 50 MCG Ondansetron HCl (Zofran) 4 mg 1X ONCE 03/29/19 14:00 03/29/19 14:03 DC 03/29/19 14:07 4 MG Allergies Allergies Allergies Coded Allergies Type Severity Reaction Last Updated Verified atorvastatin Allergy Severe throat swells 10/13/18 Yes ciprofloxacin Allergy Severe "THROAT CLOSES UP" ANAPHYLAXIS 10/13/18 Yes hydroxyzine Allergy Severe DIZZINESS, "I FEEL LIKE IM DRUNK" 10/13/18 Yes lidocaine Allergy Severe THROAT SWELLING 02/28/19 Yes raspberry Allergy Severe CHOKING SENSATION IN THROAT 10/13/18 Yes tramadol Allergy Severe VOMITING 10/13/18 Yes amoxicillin Allergy Intermediate 10/13/18 Yes aspirin Allergy Intermediate 10/13/18 Yes cephalexin Allergy Intermediate 10/13/18 Yes codeine Allergy Intermediate 10/13/18 Yes ibuprofen Allergy Intermediate 10/13/18 Yes morphine Allergy Intermediate 10/13/18 Yes simvastatin Allergy Intermediate 10/13/18 Yes sucralose Allergy Intermediate 11/09/18 Yes pregabalin Allergy Mild vomiting 10/13/18 Yes Physical Exam Physical Exam Constitutional: Well developed, well nourished, mild distress, non-toxic appearance. [] HENT: Normocephalic, atraumatic, bilateral external ears normal, oropharynx moist, no oral exudates, nose normal. [] Eyes: PERRLA, EOMI, conjunctiva normal, no discharge. [] Neck: Normal range of motion, no tenderness, supple, no stridor. [] Cardiovascular:Heart rate regular rhythm, no murmur [] Lungs & Thorax: Bilateral breath sounds clear to auscultation [] Abdomen: Bowel sounds normal, soft, no tenderness, no masses, no pulsatile masses. [] Skin: Warm, dry, no erythema, no rash. [] Back: No tenderness, no CVA tenderness. [] Extremities: No tenderness, no cyanosis, no clubbing, ROM intact, no edema. [] Neurologic: Alert and oriented X 3, normal motor function, normal sensory function, no focal deficits noted. [] Psychologic: Affect normal, judgement normal, mood normal. [] Current Patient Data Vital Signs Vital Signs Date Time Temp Pulse Resp B/P (MAP) Pulse Ox O2 Delivery O2 Flow Rate FiO2 03/29/19 14:10 98 98 03/29/19 14:08 16 03/29/19 13:26 97.6 206/119 (148) Room Air 97.6 Lab Values Laboratory Tests Test 03/29/19 13:50 White Blood Count 6.7 x10^3/uL (4.0-11.0) Red Blood Count 4.28 x10^6/uL (3.50-5.40) Hemoglobin 11.7 g/dL (12.0-15.5) L Hematocrit 35.6 % (36.0-47.0) L Mean Corpuscular Volume 83 fL (79-100) Mean Corpuscular Hemoglobin 27 pg (25-35) Mean Corpuscular Hemoglobin Concent 33 g/dL (31-37) Red Cell Distribution Width 14.2 % (11.5-14.5) Platelet Count 233 x10^3/uL (140-400) Neutrophils (%) (Auto) 64 % (31-73) Lymphocytes (%) (Auto) 25 % (24-48) Monocytes (%) (Auto) 7 % (0-9) Eosinophils (%) (Auto) 4 % (0-3) H Basophils (%) (Auto) 1 % (0-3) Neutrophils # (Auto) 4.2 x10^3/uL (1.8-7.7) Lymphocytes # (Auto) 1.7 x10^3/uL (1.0-4.8) Monocytes # (Auto) 0.5 x10^3/uL (0.0-1.1) Eosinophils # (Auto) 0.2 x10^3/uL (0.0-0.7) Basophils # (Auto) 0.1 x10^3/uL (0.0-0.2) Prothrombin Time 13.4 SEC (11.7-14.0) Prothrombin Time INR 1.1 (0.8-1.1) Sodium Level 140 mmol/L (136-145) Potassium Level 3.5 mmol/L (3.5-5.1) Chloride Level 99 mmol/L (98-107) Carbon Dioxide Level 30 mmol/L (21-32) Anion Gap 11 (6-14) Blood Urea Nitrogen 15 mg/dL (7-20) Creatinine 0.7 mg/dL (0.6-1.0) Estimated GFR (Cockcroft-Gault) 86.6 BUN/Creatinine Ratio 21 (6-20) H Glucose Level 192 mg/dL (70-99) H Calcium Level 9.3 mg/dL (8.5-10.1) Magnesium Level 1.7 mg/dL (1.8-2.4) L Total Bilirubin 0.4 mg/dL (0.2-1.0) Aspartate Amino Transferase (AST) 25 U/L (15-37) Alanine Aminotransferase (ALT) 21 U/L (14-59) Alkaline Phosphatase 167 U/L (46-116) H Troponin I Quantitative < 0.017 ng/mL (0.000-0.055) RR-Ers-Y-Type Natriuretic Peptide 421 pg/mL (0-124) H Total Protein 7.9 g/dL (6.4-8.2) Albumin 3.3 g/dL (3.4-5.0) L Albumin/Globulin Ratio 0.7 (1.0-1.7) L Laboratory Tests 03/29/19 13:50 Laboratory Tests 03/29/19 13:50 EKG EKG [] Radiology/Procedures Radiology/Procedures [][facility] [address] [place] [address] IMAGING REPORT Signed PATIENT: TAYLOR SARAVIA ACCOUNT: [id number] : 1960 LOCATION: ER AGE: 58 SEX: F EXAM STATUS: REG ER ORD. PHYSICIAN: PAXTON RATLIFF MD REASON: headache and elevation of blood pressure PROCEDURE: CT HEAD WO CONTRAST CT HEAD WO CONTRAST Clinical indications: Headache and elevation of blood pressure COMPARISON: February 16, 2019. Technique: Noncontrast axial cross sectional scanning of the head was performed. PQRS compliance Statement One or more of the following individualized dose reduction techniques were utilized for this study: 1. Automated exposure control 2. Adjustment of the mA and/or kV according to patient size 3. Use of iterative reconstruction technique Findings: No acute intracranial hemorrhage or midline shift or mass-effect or hydrocephalus or extra-axial fluid collection is seen. No new focal hypodense area or sulci effacement is seen to indicate an acute infarct or edema radiographically. No skull fracture or pneumocephalus is seen. No opacification of the mastoid sinuses or the middle ear cavities or the paranasal sinuses is seen. The maxillary sinuses are not completely seen in this study. Impression: No acute intracranial abnormality is seen. Electronically signed by: Prosper Lopes MD (03/29/2019 2:38 PM) [facility] DICTATED and SIGNED BY: PROSPER LOPES MD DATE: 03/29/19 1438 Course & Med Decision Making Course & Med Decision Making Pertinent Labs and Imaging studies reviewed. (See chart for details) Evaluation of patient in ER showed 58-year-old male patient with complaining of headache after taking proton yesterday at [facility]. Patient had un remarkable physical exam labs and CT head. Patient rated her pain 10 over 10 that improved with Zofran and fentanyl to 3/10 and ambulated without problem. Patient was advised to follow up with her primary care physician and prescription for Zofran was given. Dragon Disclaimer Dragon Disclaimer This electronic medical record was generated, in whole or in part, using a voice recognition dictation system. Departure Departure Impression: Primary Impression: Migraine headache Additional Impression: Elevated blood pressure reading without diagnosis of hypertension Disposition: HOME, SELF-CARE (at 1538) Condition: IMPROVED Referrals: ROWENA CUNNINGHAM MD (PCP) Patient Instructions: Form - Blood Pressure Record Sheet, How to Take Your Blood Pressure, [id number], Managing Your High Blood Pressure, Migraine Headache Additional Instructions: Drink plenty of liquids Follow-up with your primary care physician in 3-5 days regarding elevation of blood pressure Return to ER if not getting better Scripts Ondansetron Hcl (ZOFRAN) 4 Mg Tablet 1 TAB PO PRN Q6-8HRS for nausea, #12 TAB Prov: PAXTON RATLIFF MD 03/29/19 Problem Qualifiers Primary Impression: Migraine headache Migraine type: unspecified Status migrainosus presence: without status migrainosus Intractability: not intractable Qualified Codes: G43.909 - Migraine, unspecified, not intractable, without status migrainosus PAXTON RATLIFF MD Mar 29, 2019 14:21
[2019-03-29 14:22] LABS: ALBUMIN 3.3 g/dL (3.4-5.0); ALBUMIN/GLOBULIN RATIO 0.7 (1.0-1.7); MAGNESIUM 1.7 mg/dL (1.8-2.4); TOTAL BILIRUBIN 0.4 mg/dL (0.2-1.0); TOTAL PROTEIN 7.9 g/dL (6.4-8.2)
[2019-03-29 14:23] LABS: PROTHROMBIN TIME PATIENT 13.4 SEC (11.7-14.0)
--- NOTE | 2019-03-29 14:41 | RAD ---
CT HEAD WO CONTRAST Clinical indications: Headache and elevation of blood pressure COMPARISON: February 16, 2019. Technique: Noncontrast axial cross sectional scanning of the head was performed. PQRS compliance Statement One or more of the following individualized dose reduction techniques were utilized for this study: 1. Automated exposure control 2. Adjustment of the mA and/or kV according to patient size 3. Use of iterative reconstruction technique Findings: No acute intracranial hemorrhage or midline shift or mass-effect or hydrocephalus or extra-axial fluid collection is seen. No new focal hypodense area or sulci effacement is seen to indicate an acute infarct or edema radiographically. No skull fracture or pneumocephalus is seen. No opacification of the mastoid sinuses or the middle ear cavities or the paranasal sinuses is seen. The maxillary sinuses are not completely seen in this study. Impression: No acute intracranial abnormality is seen. Electronically signed by: Ayush Lopes MD (03/29/2019 2:38 PM) [facility]
[2019-03-29] MEDS ORDERED: ONDA4TAB7 PO (15:40)
== END 2019-03-29 16:10 | disposition home or self-care (01) ==
LOC: ER 13:26
DX: G43.909 Migraine, unspecified, not intractable, without status migrainosus (principal); R03.0 Elevated blood-pressure reading, without diagnosis of hypertension; R11.2 Nausea with vomiting, unspecified; E10.40 Type 1 diabetes mellitus with diabetic neuropathy, unspecified; E78.00 Pure hypercholesterolemia, unspecified; Z86.73 Personal history of transient ischemic attack (TIA), and cerebral infarction without residual deficits
CPT/HCPCS: 36415; 70450; 80053; 83735; 83880; 84484; 85025; 85610; 96374; 96375; 99285; J2405; J3010

== ENCOUNTER 2019-03-29 16:59 | Inpatient (IN) | payer OTHER ==
[~2019-03-29] VITALS: Ht 172.7 cm; Wt 72.6 kg
[~2019-03-29 16:59] MED LIST changes: +ONDA4TAB7 PO
--- NOTE | 2019-03-29 17:21 | PHYS DOC ---
Past Medical History Past Medical History: Diabetes-Type I, High Cholesterol, Hypothyroid, Hyp otension, Stroke, Other Additional Past Medical Histor: NEUROPATHY, ORTHOSTATIC HYPOTENSION Past Surgical History: Other Additional Past Surgical Histo: L BREAST L FOOT R KNEE Alcohol Use: None Drug Use: None Adult General Chief Complaint Chief Complaint: NAUSEA/VOMITING/DIARRHA HPI HPI Patient is a 58 year old female patient presented complaining of headache and nausea. Patient was seen in this emergency room with diagnosis of migraine headache and nausea and elevation of blood pressure without history of hypertension. Patient rated her pain 10 over 10 at her previous visit and stated her pain dropped to 3/10 and felt comfortable to go home but while she was in the waiting area for her ride she complaining of nausea without vomiting and increasing headache to 6/10. Patient had blood pressure of 167/90 arrival to ER and denies new focal neuro deficit and vomiting and chest pain and shortness of breath. Review of Systems Review of Systems Constitutional: Denies fever or chills [] Eyes: Denies change in visual acuity, redness, or eye pain [] HENT: Denies nasal congestion or sore throat [] Respiratory: Denies cough or shortness of breath [] Cardiovascular: No additional information not addressed in HPI [] GI: Denies abdominal pain, vomiting, bloody stools or diarrhea and reports nausea [] : Denies dysuria or hematuria [] Musculoskeletal: Denies back pain or joint pain [] Integument: Denies rash or skin lesions [] Neurologic: Reports headache, denies focal weakness or sensory changes [] Endocrine: Denies polyuria or polydipsia [] All other systems were reviewed and found to be within normal limits, except as documented in this note. Current Medications Current Medications Current Medications Medications (Trade) Dose Ordered Sig/[facility] Start Time Stop Time Status Last Admin Dose Admin Fentanyl Citrate (Fentanyl 2ml Vial) 50 mcg 1X ONCE 03/29/19 17:30 03/29/19 17:31 DC 03/29/19 17:42 50 MCG Prochlorperazine Edisylate (Compazine) 10 mg 1X ONCE 03/29/19 17:30 03/29/19 17:31 DC 03/29/19 17:42 10 MG Allergies Allergies Allergies Coded Allergies Type Severity Reaction Last Updated Verified atorvastatin Allergy Severe throat swells 10/13/18 Yes ciprofloxacin Allergy Severe "THROAT CLOSES UP" ANAPHYLAXIS 10/13/18 Yes hydroxyzine Allergy Severe DIZZINESS, "I FEEL LIKE IM DRUNK" 10/13/18 Yes lidocaine Allergy Severe THROAT SWELLING 02/28/19 Yes raspberry Allergy Severe CHOKING SENSATION IN THROAT 10/13/18 Yes tramadol Allergy Severe VOMITING 10/13/18 Yes amoxicillin Allergy Intermediate 10/13/18 Yes aspirin Allergy Intermediate 10/13/18 Yes cephalexin Allergy Intermediate 10/13/18 Yes codeine Allergy Intermediate 10/13/18 Yes ibuprofen Allergy Intermediate 10/13/18 Yes morphine Allergy Intermediate 10/13/18 Yes simvastatin Allergy Intermediate 10/13/18 Yes sucralose Allergy Intermediate 11/09/18 Yes pregabalin Allergy Mild vomiting 10/13/18 Yes Physical Exam Physical Exam Constitutional: Well developed, well nourished, mild distress, non-toxic appearance. [] HENT: Normocephalic, atraumatic. Eyes: PERRLA, EOMI, conjunctiva normal, no discharge. [] Neck: Normal range of motion, no tenderness, supple, no stridor. [] Cardiovascular:Heart rate regular rhythm, no murmur [] Lungs & Thorax: Bilateral breath sounds clear to auscultation [] Abdomen: Bowel sounds normal, soft, no tenderness, no masses, no pulsatile masses. [] Skin: Warm, dry, no erythema, no rash. [] Back: No tenderness, no CVA tenderness. [] Extremities: No tenderness, no cyanosis, no clubbing, ROM intact, no edema. [] Neurologic: Alert and oriented X 3, no focal deficits noted. [] Psychologic: Affect normal, judgement normal, mood normal. [] Current Patient Data Vital Signs Vital Signs Date Time Temp Pulse Resp B/P (MAP) Pulse Ox O2 Delivery O2 Flow Rate FiO2 03/29/19 17:42 16 98 Room Air 03/29/19 17:00 98.2 101 168/89 (115) 98.2 EKG EKG [] Radiology/Procedures Radiology/Procedures [] Course & Med Decision Making Course & Med Decision Making Evaluation of patient in ER showed 58-year-old female patient presented for the second time to ER with complaining of nausea and headache. Patient had unrem arkable CT head and labs in previous emergency room visit this afternoon. Patient states she does not feel safe to go home and stay with her drunk because she was not able to sleep for the last 3 nights and wanted to stay at Hospital because of her headache.Patient requiring admission for further evaluation and treatment. Discussed with Dr. Lagos who is in agreement with admission. Discussed findings and plan with patient and family, who acknowledge understanding and agreement. Dragon Disclaimer Dragon Disclaimer This electronic medical record was generated, in whole or in part, using a voice recognition dictation system. Departure Departure Impression: Primary Impression: Migraine headache Additional Impressions: Nausea Elevated blood pressure reading without diagnosis of hypertension Disposition: 09 ADMITTED INPATIENT (at 1804) Admitting Physician: AARON (Dr. Lagos accepted admission at 1802) Condition: IMPROVED Referrals: ROWENA CUNNINGHAM MD (PCP) Problem Qualifiers Primary Impression: Migraine headache Migraine type: unspecified Status migrainosus presence: without status migrainosus Intractability: intractable Qualified Codes: G43.919 - Migraine, unspecified, intractable, without status migrainosus PAXTON RATLIFF MD Mar 29, 2019 17:21
[2019-03-29] MEDS ORDERED: PROCHLORPERAZINE 10 MG/2 ML VIAL. IM ONE (17:30)
[2019-03-29] MEDS ORDERED: fentaNYL PF VIAL 100 MCG/2 ML VIAL IM ONE (17:30)
--- NOTE | 2019-03-29 18:07 | PDOC1 ---
History and Physical Date of Admission Date of Admission DATE: 03/29/19 TIME: 18:03 Identification/Chief Complaint Chief Complaint SEEN IN ER WITH INTRACTABLE headache and nausea. Patient was seen in this emergency room with diagnosis of migraine headache and nausea and elevation of blood pressure without history of hypertension. Patient rated her pain 10 over 10 at her previous visit and stated her pain dropped to 3/10 and felt comfortable to go home but while she was in the waiting area for her ride she complaining of nausea without vomiting and increasing headache to 6/10. Patient had blood pressure of 167/90 arrival to ER Past Medical History Past Medical History Past Medical History Past Medical History: Diabetes-Type I, High Cholesterol, Hypothyroid, Hypotension, Stroke, Other Additional Past Medical Histor: NEUROPATHY, ORTHOSTATIC HYPOTENSION Past Surgical History: Other Additional Past Surgical Histo: L BREAST L FOOT R KNEE Alcohol Use: None Drug Use: None fhx htn Cardiovascular: Hyperlipidemia, Other Pulmonary: COPD CENTRAL NERVOUS SYSTEM: CVA, Periperal neuropathy GI: No pertinent hx Heme/Onc: No pertinent hx Hepatobiliary: No pertinent hx Psych: No pertinent hx Musculoskeletal: Osteoarthritis Rheumatologic: No pertinent hx Infectious disease: Other Renal/: No pertinent hx Endocrine: Diabetes, Hyperthyroidism Past Surgical History Past Surgical History: Other Family History Family History: Diabetes, High Cholestrol, Hypertension Social History Smoke: No ALCOHOL: none Drugs: None Current Medications Current Medications Current Medications Prochlorperazine Edisylate (Compazine) 10 mg 1X ONCE IM Last administered on 03/29/19at 17:42; Start 03/29/19 at 17:30; Stop 03/29/19 at 17:31; Status DC Fentanyl Citrate (Fentanyl 2ml Vial) 50 mcg 1X ONCE IM Last administered on 03/29/19at 17:42; Start 03/29/19 at 17:30; Stop 03/29/19 at 17:31; Status DC Active Scripts Active Zofran (Ondansetron Hcl) 4 Mg Tablet 1 Tab PO PRN Q6-8HRS Doxycycline Hyclate 100 Mg Tablet 1 Tab PO BID [place] (Sodium Chloride) 44 Ml [place] 1 Jacques NS PRN Q1HR PRN 28 Days Cetirizine Hcl 10 Mg Tablet 10 Mg PO PRN DAILY PRN 10 Days Fludrocortisone Acetate 0.1 Mg Tablet 0.1 Mg PO DAILY 30 Days Amitriptyline Hcl 25 Mg Tablet 50 Mg PO QHS 30 Days Reported Levothyroxine Sodium 100 Mcg Tablet 100 Mcg PO HS Novolog Flexpen (Insulin Aspart) 100 Unit/1 Ml Insuln.pen 1 Unit SQ TIDAC PER SLIDING SCALE Midodrine Hcl 10 Mg Tablet 10 Mg PO TID Basaglar Kwikpen U-100 (Insulin Glargine,Hum.rec.anlog) 100 Unit/1 Ml Insuln.pen 30 Unit SQ DAILY08 Lovastatin 10 Mg Tablet 10 Mg PO HS Gabapentin (Gabapentin) 300 Mg Capsule 600 Mg PO HS Allergies Allergies: Coded Allergies: atorvastatin (Verified Allergy, Severe, throat swells, 10/13/18) ciprofloxacin (Verified Allergy, Severe, "THROAT CLOSES UP" ANAPHYLAXIS, 10/13/18) hydroxyzine (Verified Allergy, Severe, DIZZINESS, "I FEEL LIKE IM DRUNK", 10/13/18) lidocaine (Verified Allergy, Severe, THROAT SWELLING, 02/28/19) raspberry (Verified Allergy, Severe, CHOKING SENSATION IN THROAT, 10/13/18) tramadol (Verified Allergy, Severe, VOMITING, 10/13/18) amoxicillin (Verified Allergy, Intermediate, 10/13/18) aspirin (Verified Allergy, Intermediate, 10/13/18) cephalexin (Verified Allergy, Intermediate, 10/13/18) codeine (Verified Allergy, Intermediate, 10/13/18) ibuprofen (Verified Allergy, Intermediate, 10/13/18) morphine (Verified Allergy, Intermediate, 10/13/18) simvastatin (Verified Allergy, Intermediate, 10/13/18) LEGS BUCKEL, LOSE FEELING sucralose (Verified Allergy, Intermediate, 11/09/18) pregabalin (Verified Allergy, Mild, vomiting, 10/13/18) ROS Review of System Review of Systems Review of Systems Constitutional: Denies fever or chills [] Eyes: Denies change in visual acuity, redness, or eye pain [] HENT: Denies nasal congestion or sore throat [] Respiratory: Denies cough or shortness of breath [] Cardiovascular: No additional information not addressed in HPI [] GI: Denies abdominal pain, vomiting, bloody stools or diarrhea and reports nausea [] : Denies dysuria or hematuria [] Musculoskeletal: Denies back pain or joint pain [] Integument: Denies rash or skin lesions [] Neurologic: Reports headache, denies focal weakness or sensory changes [] Endocrine: Denies polyuria or polydipsia [] 14 PT systems were reviewed and found to be within normal limits, except as documented Gastrointestinal: Yes Nausea Physical Exam Physical Exam Physical Exam Physical Exam Constitutional: Well developed, well nourished, mild distress, non-toxic appearance. [] HENT: Normocephalic, atraumatic. Eyes: PERRLA, EOMI, conjunctiva normal, no discharge. [] Neck: Normal range of motion, no tenderness, supple, no stridor. [] Cardiovascular:Heart rate regular rhythm, no murmur [] Lungs & Thorax: Bilateral breath sounds clear to auscultation [] Abdomen: Bowel sounds normal, soft, no tenderness, no masses, no pulsatile masses. [] Skin: Warm, dry, no erythema, no rash. [] Back: No tenderness, no CVA tenderness. [] Extremities: No tenderness, no cyanosis, no clubbing, ROM intact, no edema. [] Neurologic: Alert and oriented X 3, no focal deficits noted. [] Psychologic: Affect normal, judgement normal, mood normal. [] General: Alert, Oriented X3, Cooperative Heart: no thrills Breasts: Not examined Rectal Exam: not examined PELVIC: Examination not indicated Extremities: No cyanosis Neuro: Cranial nerves 3-12 NL Psych/Mental Status: Mental status NL, Mood NL Vitals Vitals Vital Signs Date Time Temp Pulse Resp B/P (MAP) Pulse Ox O2 Delivery O2 Flow Rate FiO2 03/29/19 17:42 16 98 Room Air 03/29/19 17:00 98.2 101 168/89 (115) 98.[address] HEAD WO CONTRAST Clinical indications: Headache and elevation of blood pressure COMPARISON: February 16, 2019. Technique: Noncontrast axial cross sectional scanning of the head was performed. PQRS compliance Statement One or more of the following individualized dose reduction techniques were utilized for this study: 1. Automated exposure control 2. Adjustment of the mA and/or kV according to patient size 3. Use of iterative reconstruction technique Findings: No acute intracranial hemorrhage or midline shift or mass-effect or hydrocephalus or extra-axial fluid collection is seen. No new focal hypodense area or sulci effacement is seen to indicate an acute infarct or edema radiographically. No skull fracture or pneumocephalus is seen. No opacification of the mastoid sinuses or the middle ear cavities or the paranasal sinuses is seen. The maxillary sinuses are not completely seen in this study. Impression: No acute intracranial abnormality is seen. Electronically signed by: Ayush Lopes MD (03/29/2019 2:38 PM) [facility] VTE Prophylaxis Ordered VTE Prophylaxis Devices: Yes VTE Pharmacological Prophylaxi: Yes Assessment/Plan Assessment/Plan impression Accelerated hypertension hx orthostatic hypotension headache, intractable ct head 03/29 No acute intracranial abnormality is seen. peripheral neuropathy- ///neurontin hx Atypical chest pain: Acquired hypothyroidism: recent thyroidectomy r/t multinodular goiter. dm1, insulin GERD CKD multdrug allergies including contrast PT eval recent echo normal. also had tilt table normal admit bp control consult neurology tele iv pain control iv fluid support home meds dvt prophylaxis iv hydralazine 10mg q 4 hrs prn bp support PARMINDER LARSON MD Mar 29, 2019 18:07
[2019-03-29] MEDS ORDERED: fentaNYL PF VIAL 100 MCG/2 ML VIAL IV PRN (18:15)
[2019-03-29] MEDS ORDERED: SODIUM CHLORIDE 0.65% NASAL SPRAY 45ML BOTTLE. NS PRN (18:15)
[2019-03-29] MEDS ORDERED: CETIRIZINE HCL 10 MG TABLET. PO PRN (18:15)
[2019-03-29] MEDS ORDERED: ONDANSETRON PF 4 MG/2 ML VIAL. IV PRN ×2 (18:15→18:45)
[2019-03-29] MEDS ORDERED: DOCUSATE SODIUM 100 MG CAPSULE. PO PRN (18:45)
[2019-03-29] MEDS ORDERED: 0.9 % SODIUM CHLORIDE 10 ML DISP.SYRIN. IV PRN (18:45)
[2019-03-29] MEDS ORDERED: ZOLPIDEM 5 MG TABLET. PO PRN (18:45)
[2019-03-29] MEDS ORDERED: ALBUTEROL SULFATE 2.5 MG/3 ML NEBU. NEB PRN (18:45)
[2019-03-29] MEDS ORDERED: cloNIDine HCL 0.1 MG TABLET PO PRN (18:45)
[2019-03-29] MEDS ORDERED: MAG HYDROX/ALUMINUM HYD/SIMETH 30 ML ORAL.SUSP PO PRN (18:45)
[2019-03-29] MEDS ORDERED: LORazepam 0.5 MG TABLET PO PRN (18:45)
[2019-03-29 19:45] VITALS: BP 181/114
[2019-03-29] MEDS: LOVASTATIN 10 MG PO SCH (20:41)
[2019-03-29] MEDS: LEVOTHYROXINE 100 MCG TABLET PO SCH (20:52)
[2019-03-29] MEDS: IV NORMAL SALINE 1000ML BAG 1,000 ML IV SCH (20:52)
[2019-03-29] MEDS: AMITRIPTYLINE HCL 25 MG TABLET. PO SCH (20:53)
[2019-03-29] MEDS: GABAPENTIN 300 MG CAPSULE. PO SCH (20:53)
[2019-03-29] MEDS: hydrALAZINE 20 MG/ML VIAL. IVP PRN (20:54)
[2019-03-29] MEDS ORDERED: LEVOTHYROXINE 100 MCG TABLET PO SCH (21:00)
[2019-03-29 22:33] VITALS: BP 143/87
[2019-03-29] MEDS ORDERED: DEXTROSE 50% 25 GM / 50ML DISP.SYRIN. IV PRN (23:00)
[2019-03-29] MEDS: ACETAMINOPHEN 325 MG TABLET. PO PRN (23:30)
[2019-03-30] VITALS (7 sets, daily range): BP systolic 102–137; BP diastolic 61–84
[2019-03-30] MEDS: IV NORMAL SALINE 1000ML BAG 1,000 ML IV SCH ×2 (06:36→14:43)
[2019-03-30] MEDS: MIDODRINE 5 MG TABLET PO SCH ×3 (07:00→14:44)
[2019-03-30] MEDS ORDERED: NON FORMULARY ITEM (Insulin Aspart (Novolog Flexpen) 1 UNIT) SQ SCH (07:30)
[2019-03-30] MEDS ORDERED: INSULIN LISPRO 300 UNITS/3 ML VIAL. SQ SCH (08:00)
[2019-03-30] MEDS ORDERED: INSULIN GLARGINE SYRINGE. SQ SCH (08:00)
[2019-03-30] MEDS: FLUDROCORTISONE 0.1 MG TABLET PO SCH (08:26)
[2019-03-30] MEDS: ENOXAPARIN 40 MG/0.4 ML SYRINGE. SQ SCH (08:27)
[2019-03-30] MEDS: ACETAMINOPHEN 325 MG TABLET. PO PRN ×2 (08:29→21:05)
--- NOTE | 2019-03-30 10:37 | PDOC ---
PROGRESS NOTES History of Present Illness History of Present Illness VTE Prophylaxis Ordered VTE Prophylaxis Devices: Yes VTE Pharmacological Prophylaxi: Yes Assessment/Plan Assessment/Plan impression Accelerated hypertension hx orthostatic hypotension headache, intractable ct head 03/29 No acute intracranial abnormality is seen. peripheral neuropathy- ///neurontin hx Atypical chest pain: Acquired hypothyroidism: recent thyroidectomy r/t multinodular goiter. dm1, insulin GERD CKD multdrug allergies including contrast PT eval recent echo normal. also had tilt table normal NORMOCYTIC ANEMIA Elevated esr admit bp control consult neurology tele iv pain control iv fluid support home meds dvt prophylaxis iv hydralazine 10mg q 4 hrs prn bp support Vitals Vitals Vital Signs Date Time Temp Pulse Resp B/P (MAP) Pulse Ox O2 Delivery O2 Flow Rate FiO2 03/30/19 07:00 98.6 91 16 119/76 (90) 93 Room Air 98.6 Physical Exam General: Alert, Oriented X3, Cooperative, moderate distress Heart: Regular rate, Normal S1, Normal S2 Lungs: Clear Abdomen: Soft Extremities: No clubbing, No cyanosis Labs LABS Laboratory Tests Test 03/29/19 20:51 03/30/19 07:48 Glucose (Fingerstick) 162 mg/dL (70-99) 162 mg/dL (70-99) Assessment and Plan Assessmemt and Plan Problems Medical Problems: (1) Elevated blood pressure reading without diagnosis of hypertension Status: Acute (2) Migraine headache Status: Acute (3) Nausea Status: Acute Comment Review of Relevant I have reviewed the following items zurdo (where applicable) has been applied. Labs Laboratory Tests Test 03/29/19 20:51 03/30/19 07:48 Glucose (Fingerstick) 162 mg/dL (70-99) 162 mg/dL (70-99) Laboratory Tests Test 03/29/19 20:51 03/30/19 07:48 Glucose (Fingerstick) 162 mg/dL (70-99) 162 mg/dL (70-99) Medications Current Medications Prochlorperazine Edisylate (Compazine) 10 mg 1X ONCE IM Last administered on 03/29/19at 17:42; Start 03/29/19 at 17:30; Stop 03/29/19 at 17:31; Status DC Fentanyl Citrate (Fentanyl 2ml Vial) 50 mcg 1X ONCE IM Last administered on 03/29/19at 17:42; Start 03/29/19 at 17:30; Stop 03/29/19 at 17:31; Status DC Ondansetron HCl (Zofran) 4 mg PRN Q8HRS PRN IV NAUSEA/VOMITING; Start 03/29/19 at 18:15; Stop 03/29/19 at 18:56; Status DC Fentanyl Citrate (Fentanyl 2ml Vial) 50 mcg Q2HR PRN IV PAIN Last administered on 03/29/19at 20:55; Start 03/29/19 at 18:15; Stop 03/29/19 at 22:00; Status DC Amitriptyline HCl (Elavil) 50 mg QHS PO Last administered on 03/29/19at 20:53; Start 03/29/19 at 21:00 Cetirizine HCl (ZyrTEC) 10 mg PRN DAILY PRN PO ALLERGIES/congestion; Start 03/29/19 at 18:15 Fludrocortisone Acetate (Florinef) 0.1 mg DAILY PO Last administered on 9at 08:26; Start 03/30/19 at 09:00 Gabapentin (Neurontin) 600 mg HS PO Last administered on 03/29/19at 20:53; Start 03/29/19 at 21:00 Levothyroxine Sodium (Synthroid) 100 mcg HS PO ; Start 03/29/19 at 21:00; Stop 03/29/19 at 20:41; Status DC Sodium Chloride (Saline Mist Nasal) 1 jacques PRN Q1HR PRN NS NASAL CONGESTION; Start 03/29/19 at 18:15 Non-Formulary Medication (Insulin Aspart (Novolog Flexpen)) 1 unit TIDAC SQ ; Start 03/30/19 at 07:30; Status UNV Insulin Glargine (Lantus Syringe) 30 unit DAILY08 SQ ; Start 03/30/19 at 08:00; Stop 03/30/19 at 10:01; Status DC Non-Formulary Medication (Lovastatin ) 10 mg HS PO ; Start 03/29/19 at 21:00; Status UNV Midodrine (Proamatine) 10 mg BUL201 PO ; Start 03/30/19 at 07:00 Ondansetron HCl (Zofran Odt) 4 mg PRN Q8HRS PRN PO NAUSEA/VOMITING 1ST CHOICE; Start 03/29/19 at 18:30 Sodium Chloride (Normal Saline Flush) 3 ml QSHIFT PRN IV AFTER MEDS AND BLOOD DRAWS; Start 03/29/19 at 18:45 Sodium Chloride 1,000 ml @ 100 mls/hr Q10H IV Last administered on 03/30/19at 06:36; Start 03/29/19 at 18:45 Ondansetron HCl (Zofran) 4 mg PRN Q4HRS PRN IV NAUSEA/VOMITING; Start 03/29/19 at 18:45 Zolpidem Tartrate (Ambien) 5 mg PRN QHS PRN PO INSOMNIA; Start 03/29/19 at 18:45 Acetaminophen (Tylenol) 650 mg PRN Q4HRS PRN PO TEMP OVER 100.4F OR MILD PAIN Last administered on 03/30/19at 08:29; Start 03/29/19 at 18:45 Al Hydroxide/Mg Hydroxide (Mylanta Plus Xs) 30 ml PRN DAILY PRN PO HEARTBURN / GAS; Start 03/29/19 at 18:45 Clonidine HCl (Catapres) 0.1 mg PRN Q6HRS PRN PO SBP>160 OR DBP>90; Start 03/29/19 at 18:45 Docusate Sodium (Colace) 100 mg PRN BID PRN PO CONSTIPATION; Start 03/29/19 at 18:45 Albuterol Sulfate (Ventolin Neb Soln) 2.5 mg PRN Q4HRS PRN NEB SHORTNESS OF BREATH; Start 03/29/19 at 18:45 Lorazepam (Ativan) 0.5 mg PRN Q4HRS PRN PO ANXIETY / AGITATION; Start 03/29/19 at 18:45 Lorazepam (Ativan Inj) 2 mg PRN Q4HRS PRN IV ANXIETY / AGITATION; Start 03/29/19 at 18:45 Enoxaparin Sodium (Lovenox 40mg Syringe) 40 mg DAILY SQ Last administered on 03/30/19at 08:27; Start 03/30/19 at 09:00 Hydralazine HCl (Apresoline Inj) 10 mg PRN Q4HRS PRN IVP HYPERTENSION Last administered on 03/29/19at 20:54; Start 03/29/19 at 19:00 Levothyroxine Sodium (Synthroid) 200 mcg HS PO Last administered on 03/29/19at 20:52; Start 03/29/19 at 21:00 Insulin Human Lispro (HumaLOG) for blood glucose > 180, g... TIDWMEALS SQ ; Start 03/30/19 at 08:00; Stop 03/30/19 at 10:01; Status DC Dextrose (Dextrose 50%-Water Syringe) 12.5 gm PRN Q15MIN PRN IV SEE COMMENTS; Start 03/29/19 at 23:00 Non-Formulary Medication 1 ea TIDAC SQ ; Start 03/30/19 at 11:30 Non-Formulary Medication 1 ea DAILY SQ ; Start 03/31/19 at 09:00 Active Scripts Active Zofran (Ondansetron Hcl) 4 Mg Tablet 1 Tab PO PRN Q6-8HRS Doxycycline Hyclate 100 Mg Tablet 1 Tab PO BID Deep Sea (Sodium Chloride) 44 Ml [place] 1 Jacques NS PRN Q1HR PRN 28 Days Cetirizine Hcl 10 Mg Tablet 10 Mg PO PRN DAILY PRN 10 Days Fludrocortisone Acetate 0.1 Mg Tablet 0.1 Mg PO DAILY 30 Days Amitriptyline Hcl 25 Mg Tablet 50 Mg PO QHS 30 Days Reported Levothyroxine Sodium 100 Mcg Tablet 200 Mcg PO HS Novolog Flexpen (Insulin Aspart) 100 Unit/1 Ml Insuln.pen 1 Unit SQ TIDAC PER SLIDING SCALE Midodrine Hcl 10 Mg Tablet 10 Mg PO TID Basaglar Kwikpen U-100 (Insulin Glargine,Hum.rec.anlog) 100 Unit/1 Ml Insuln.pen 30 Unit SQ DAILY08 Lovastatin 10 Mg Tablet 10 Mg PO HS Gabapentin (Gabapentin) 300 Mg Capsule 600 Mg PO HS Vitals/I & O Vital Sign - Last 24 Hours 03/29/19 03/29/19 03/29/19 03/29/19 17:00 17:42 18:20 19:45 Temp 98.2 98.0 98.2 98.0 Pulse 101 101 98 Resp 16 16 16 18 B/P (MAP) 168/89 (115) 188/107 (134) 181/114 (136) Pulse Ox 100 98 98 98 O2 Delivery Room Air Room Air Room Air 03/29/19 03/29/19 03/29/19 03/29/19 20:00 20:54 20:55 22:23 Pulse 96 Resp 18 B/P (MAP) 170/111 Pulse Ox 98 96 O2 Delivery Room Air Room Air 03/29/19 03/30/19 03/30/19 03/30/19 22:33 03:00 06:07 07:00 Temp 97.9 99.6 97.9 99.6 Pulse 96 93 86 86 Resp 16 16 16 B/P (MAP) 143/87 (105) 116/63 (80) 102/61 (75) 102/61 Pulse Ox 96 91 93 O2 Delivery Room Air 03/30/19 07:00 Temp 98.6 98.6 Pulse 91 Resp 16 B/P (MAP) 119/76 (90) Pulse Ox 93 O2 Delivery Room Air Intake and Output 03/29/19 03/29/19 03/30/19 15:00 23:00 07:00 Intake Total 180 ml 1120 ml Balance 180 ml 1120 ml PARMINDER LARSON MD Mar 30, 2019 10:37
[2019-03-30 11:46] LABS: BASO % 1 % (0-3); EOS # 0.2 x10^3/uL (0.0-0.7); EOS % 3 % (0-3); HEMATOCRIT 32.7 % (36.0-47.0); HEMOGLOBIN 10.6 g/dL (12.0-15.5); LYMPH # 1.9 x10^3/uL (1.0-4.8); LYMPH % 35 % (24-48); MEAN CORPUSCULAR HEMOGLOBIN 27 pg (25-35); MEAN CORPUSCULAR HGB CONC 33 g/dL (31-37); MEAN CORPUSCULAR VOLUME 85 fL (79-100); MONO # 0.3 x10^3/uL (0.0-1.1); MONO % 6 % (0-9); NEUT % 55 % (31-73); PLATELET COUNT 205 x10^3/uL (140-400); RED BLOOD COUNT 3.87 x10^6/uL (3.50-5.40); RED CELL DISTRIBUTION WIDTH 14.9 % (11.5-14.5); WHITE BLOOD COUNT 5.5 x10^3/uL (4.0-11.0)
[2019-03-30] MEDS ORDERED: METOPROLOL SUCC 24HR ER 25 MG TAB.ER.24H. PO ONE (12:00)
[2019-03-30 12:01] LABS: ALBUMIN 2.7 g/dL (3.4-5.0); ALBUMIN/GLOBULIN RATIO 0.7 (1.0-1.7); CALCIUM 8.6 mg/dL (8.5-10.1); CREATININE 1.3 mg/dL (0.6-1.0); GFR 42.4; POTASSIUM 3.5 mmol/L (3.5-5.1); TOTAL BILIRUBIN 0.2 mg/dL (0.2-1.0); TOTAL PROTEIN 6.7 g/dL (6.4-8.2)
--- NOTE | 2019-03-30 16:45 | PDOC2 ---
NEUROLOGY CONSULT Date of Admission Date of Admission DATE: 03/30/19 TIME: 16:25 Reason for Consult Reason for Consult: IMPRESSION: Worsening of chronic migraine headaches. Nausea. HTN. HLD. COPD. RECOMMENDATIONS/PLAN: HCT performed and ICH and SAH ruled out. Lab: see orders. Pain control. Topamax 25 mg bid with titration up. Metoprolol 25 mg daily. Brain MRI on 06/09/18 was a negative study. HISTORY OF THE PRESENT ILLNESS: This is a 58-year-old female patient with history of chronic headaches for many years. Her headaches were not frequent in the past, but has headaches and nausea this time to come to the ER of [facility]. Patient rated her headache 10 over 10 at her previous visit and stated her pain dropped to 3/10 and felt comfortable to go home but while she was in the waiting area for her ride she complaining of nausea without vomiting and her headaches increasing to 6/10. No symptoms of MS changes, projectile vomiting, decreased vision, blurred vision, diplopia, ataxia, focalized sensory or motor deficits. Past Medical History Diabetes-Type I, High Cholesterol, Hypothyroid, Hypotension, Stroke? NEUROPATHY, ORTHOSTATIC HYPOTENSION. Cardiovascular: Hyperlipidemia. Pulmonary: COPD CENTRAL NERVOUS SYSTEM: CVA, Periperal neuropathy GI: No pertinent hx Heme/Onc: No pertinent hx Hepatobiliary: No pertinent hx Psych: No pertinent hx Musculoskeletal: Osteoarthritis Rheumatologic: No pertinent hx Infectious disease: Other Renal/: No pertinent hx Endocrine: Diabetes, Hyperthyroidism Past Surgical History L BREAST L FOOT R KNEE Family History Diabetes, High Cholesterol, Hypertension Allergies Coded Allergies: atorvastatin (Verified Allergy, Severe, throat swells, 10/13/18) ciprofloxacin (Verified Allergy, Severe, "THROAT CLOSES UP" ANAPHYLAXIS, 10/13/18) hydroxyzine (Verified Allergy, Severe, DIZZINESS, "I FEEL LIKE IM DRUNK", 10/13/18) lidocaine (Verified Allergy, Severe, THROAT SWELLING, 02/28/19) raspberry (Verified Allergy, Severe, CHOKING SENSATION IN THROAT, 10/13/18) tramadol (Verified Allergy, Severe, VOMITING, 10/13/18) amoxicillin (Verified Allergy, Intermediate, 10/13/18) aspirin (Verified Allergy, Intermediate, 10/13/18) cephalexin (Verified Allergy, Intermediate, 10/13/18) codeine (Verified Allergy, Intermediate, 10/13/18) ibuprofen (Verified Allergy, Intermediate, 10/13/18) morphine (Verified Allergy, Intermediate, 10/13/18) simvastatin (Verified Allergy, Intermediate, 10/13/18) LEGS BUCKEL, LOSE FEELING sucralose (Verified Allergy, Intermediate, 11/09/18) pregabalin (Verified Allergy, Mild, vomiting, 10/13/18) MEDICATIONS: Refer to MAR SOCIAL HISTORY: Lives at home. Denies current smoking, drinking, and illicit drug use. REVIEW OF SYSTEMS: Constitutional: No malnutrition, weight loss, cachexia. Head: No traumatic brain or head injury. Skin: No edema, or rash. Ear: No infection. Eyes: No vision loss or color blindness. Nose: No bleeding or purulent discharges. Hearing: No hearing decrease. Neck: No injury. Breast: No history of cancer, masses,or discharges. Cardiac: No VT, arrhythmia,claudication, CAD. Pulmonary: COPD. GI: No GI ulcer, GI bleeding. Urinary/genital: UTI. Endocrinologic: No cousin face, craniofacial dysmorphism, polydactyly. Skeletomuscular: No muscular atrophy, deformity. Neurological: see HP. Psychiatric: Denies drug use/abuse. Otherwise, not [id number] review of systems. PHYSICAL EXAMINATION: General appearance is in subacute distress. HEENT: Normocephalic and nontraumatic. Eyes, nose, ears, and throat are unremarkable. Neck is supple. No lymphadenopathy. No bruits are heard over the carotid artery. No crepitus. Cardiovascular: S1, S2, regular rate and rhythm. Pulmonary: Clear to auscultation bilaterally. Abdomen: Bowel sounds are positive. Abdomen is soft, nontender, and nondistended. Extremities: No rash, lesions, or edema. No restriction of range of motion NEUROLOGICAL EXAMINATION: Alert Oriented to time, place and person. PERRL. EOMI. CN: no focal findings. Muscle tone: within normal. Muscle strength: 5 DTR: 2 Plantar reflex: Flexor response bilaterally Gait: At baseline normal. Sensory exam: no abnormal findings. No cerebellar signs elicited. F-T-N test accurate. Current Medications Current Medications Current Medications Prochlorperazine Edisylate (Compazine) 10 mg 1X ONCE IM Last administered on 03/29/19at 17:42; Start 03/29/19 at 17:30; Stop 03/29/19 at 17:31; Status DC Fentanyl Citrate (Fentanyl 2ml Vial) 50 mcg 1X ONCE IM Last administered on 03/29/19at 17:42; Start 03/29/19 at 17:30; Stop 03/29/19 at 17:31; Status DC Ondansetron HCl (Zofran) 4 mg PRN Q8HRS PRN IV NAUSEA/VOMITING; Start 03/29/19 at 18:15; Stop 03/29/19 at 18:56; Status DC Fentanyl Citrate (Fentanyl 2ml Vial) 50 mcg Q2HR PRN IV PAIN Last administered on 03/29/19at 20:55; Start 03/29/19 at 18:15; Stop 03/29/19 at 22:00; Status DC Amitriptyline HCl (Elavil) 50 mg QHS PO Last administered on 03/29/19at 20:53; Start 03/29/19 at 21:00 Cetirizine HCl (ZyrTEC) 10 mg PRN DAILY PRN PO ALLERGIES/congestion; Start 03/29/19 at 18:15 Fludrocortisone Acetate (Florinef) 0.1 mg DAILY PO Last administered on 03/30/19at 08:26; Start 03/30/19 at 09:00 Gabapentin (Neurontin) 600 mg HS PO Last administered on 03/29/19at 20:53; Start 03/29/19 at 21:00 Levothyroxine Sodium (Synthroid) 100 mcg HS PO ; Start 03/29/19 at 21:00; Stop 03/29/19 at 20:41; Status DC Sodium Chloride (Saline Mist Nasal) 1 jacques PRN Q1HR PRN NS NASAL CONGESTION; Start 03/29/19 at 18:15 Non-Formulary Medication (Insulin Aspart (Novolog Flexpen)) 1 unit TIDAC SQ ; Start 03/30/19 at 07:30; Status UNV Insulin Glargine (Lantus Syringe) 30 unit DAILY08 SQ ; Start 03/30/19 at 08:00; Stop 03/30/19 at 10:01; Status DC Non-Formulary Medication (Lovastatin ) 10 mg HS PO ; Start 03/29/19 at 21:00; Status UNV Midodrine (Proamatine) 10 mg [id number] PO ; Start 03/30/19 at 07:00 Ondansetron HCl (Zofran Odt) 4 mg PRN Q8HRS PRN PO NAUSEA/VOMITING 1ST CHOICE; Start 03/29/19 at 18:30 Sodium Chloride (Normal Saline Flush) 3 ml QSHIFT PRN IV AFTER MEDS AND BLOOD DRAWS; Start 03/29/19 at 18:45 Sodium Chloride 1,000 ml @ 100 mls/hr Q10H IV Last administered on 03/30/19at 06:36; Start 03/29/19 at 18:45 Ondansetron HCl (Zofran) 4 mg PRN Q4HRS PRN IV NAUSEA/VOMITING; Start 03/29/19 at 18:45 Zolpidem Tartrate (Ambien) 5 mg PRN QHS PRN PO INSOMNIA; Start 03/29/19 at 18:45 Acetaminophen (Tylenol) 650 mg PRN Q4HRS PRN PO TEMP OVER 100.4F OR MILD PAIN Last administered on 03/30/19at 08:29; Start 03/29/19 at 18:45 Al Hydroxide/Mg Hydroxide (Mylanta Plus Xs) 30 ml PRN DAILY PRN PO HEARTBURN / GAS; Start 03/29/19 at 18:45 Clonidine HCl (Catapres) 0.1 mg PRN Q6HRS PRN PO SBP>160 OR DBP>90; Start 03/29 at 18:45 Docusate Sodium (Colace) 100 mg PRN BID PRN PO CONSTIPATION; Start 03/29/19 at 18:45 Albuterol Sulfate (Ventolin Neb Soln) 2.5 mg PRN Q4HRS PRN NEB SHORTNESS OF BREATH; Start 03/29/19 at 18:45 Lorazepam (Ativan) 0.5 mg PRN Q4HRS PRN PO ANXIETY / AGITATION; Start 03/29/19 at 18:45 Lorazepam (Ativan Inj) 2 mg PRN Q4HRS PRN IV ANXIETY / AGITATION; Start 03/29/19 at 18:45 Enoxaparin Sodium (Lovenox 40mg Syringe) 40 mg DAILY SQ Last administered on 03/30/19at 08:27; Start 03/30/19 at 09:00 Hydralazine HCl (Apresoline Inj) 10 mg PRN Q4HRS PRN IVP HYPERTENSION Last administered on 03/29/19at 20:54; Start 03/29/19 at 19:00 Levothyroxine Sodium (Synthroid) 200 mcg HS PO Last administered on 03/29/19at 20:52; Start 03/29/19 at 21:00 Insulin Human Lispro (HumaLOG) for blood glucose > 180, g... TIDWMEALS SQ ; Start 03/30/19 at 08:00; Stop 03/30/19 at 10:01; Status DC Dextrose (Dextrose 50%-Water Syringe) 12.5 gm PRN Q15MIN PRN IV SEE COMMENTS; Start 03/29/19 at 23:00 Non-Formulary Medication 1 ea TIDAC SQ Last administered on 03/30/19at 12:04; Start 03/30/19 at 11:30 Non-Formulary Medication 1 ea DAILY SQ ; Start 03/31/19 at 09:00 Metoprolol Succinate (Toprol Xl) 25 mg 1X ONCE PO Last administered on 03/30/19at 12:24; Start 03/30/19 at 12:00; Stop 03/30/19 at 12:05; Status DC Metoprolol Succinate (Toprol Xl) 25 mg DAILY PO ; Start 03/31/19 at 09:00 Topiramate (Topamax) 25 mg BID PO ; Start 03/30/19 at 21:00 Active Scripts Active Zofran (Ondansetron Hcl) 4 Mg Tablet 1 Tab PO PRN Q6-8HRS Doxycycline Hyclate 100 Mg Tablet 1 Tab PO BID Deep Sea (Sodium Chloride) 44 Ml [place] 1 Jacques NS PRN Q1HR PRN 28 Days Cetirizine Hcl 10 Mg Tablet 10 Mg PO PRN DAILY PRN 10 Days Fludrocortisone Acetate 0.1 Mg Tablet 0.1 Mg PO DAILY 30 Days Amitriptyline Hcl 25 Mg Tablet 50 Mg PO QHS 30 Days Reported Levothyroxine Sodium 100 Mcg Tablet 200 Mcg PO HS Novolog Flexpen (Insulin Aspart) 100 Unit/1 Ml Insuln.pen 1 Unit SQ TIDAC PER SLIDING SCALE Midodrine Hcl 10 Mg Tablet 10 Mg PO TID Basaglar Kwikpen U-100 (Insulin Glargine,Hum.rec.anlog) 100 Unit/1 Ml Insuln.pen 30 Unit SQ DAILY08 Lovastatin 10 Mg Tablet 10 Mg PO HS Gabapentin (Gabapentin) 300 Mg Capsule 600 Mg PO HS Allergies Allergies: Allergies Coded Allergies Type Severity Reaction Last Updated Verified atorvastatin Allergy Severe throat swells 10/13/18 Yes ciprofloxacin Allergy Severe "THROAT CLOSES UP" ANAPHYLAXIS 10/13/18 Yes hydroxyzine Allergy Severe DIZZINESS, "I FEEL LIKE IM DRUNK" 10/13/18 Yes lidocaine Allergy Severe THROAT SWELLING 02/28/19 Yes raspberry Allergy Severe CHOKING SENSATION IN THROAT 10/13/18 Yes tramadol Allergy Severe VOMITING 10/13/18 Yes amoxicillin Allergy Intermediate 10/13/18 Yes aspirin Allergy Intermediate 10/13/18 Yes cephalexin Allergy Intermediate 10/13/18 Yes codeine Allergy Intermediate 10/13/18 Yes ibuprofen Allergy Intermediate 10/13/18 Yes morphine Allergy Intermediate 10/13/18 Yes simvastatin Allergy Intermediate 10/13/18 Yes sucralose Allergy Intermediate 11/09/18 Yes pregabalin Allergy Mild vomiting 10/13/18 Yes ROS Review of System The patient denies any associated fevers, chills, headache, ear pain, rhinorrhea, sore throat, stiff neck, productive cough, chest pain, shortness of breath, back or flank pain, abdominal pain, nausea, vomiting, diarrhea, constipation, dysuria, rash, numbness, weakness, tingling, incontinence, difficulty ambulating, or diaphoresis. Physical Exam Physical Exam General: Well developed, well nourished, no acute distress, well appearing HEENT: Pupils equally round and reactive to light, EOMI, no discharge, normal conjunctiva Neck: Supple, no nuchal rigidity, no JVD, trachea midline, no tenderness Cardiac: RRR, no murmurs, no gallops, no rubs Chest/Lungs: CTAB, no wheeze, no rhonchi, no crackles Abdomen: soft, non-distended, no guarding, no peritoneal signs, non-tender Back: No tenderness Extremities: no edema, pulses intact, non-tender,capillary refill <3 sec bilateral upper and lower extremities, Neuro: Alert and oriented x 4, no focal deficits, normal speech Vitals Vitals: Vital Signs Date Time Temp Pulse Resp B/P (MAP) Pulse Ox O2 Delivery O2 Flow Rate FiO2 03/30/19 15:00 98.1 91 18 137/81 (99) 94 Room Air 98.1 Labs Labs Laboratory Tests Test 03/29/19 20:51 12/5/19 07:48 03/30/19 11:25 03/30/19 11:50 Glucose (Fingerstick) 162 mg/dL (70-99) 162 mg/dL (70-99) 240 mg/dL (70-99) White Blood Count 5.5 x10^3/uL (4.0-11.0) Red Blood Count 3.87 x10^6/uL (3.50-5.40) Hemoglobin 10.6 g/dL (12.0-15.5) Hematocrit 32.7 % (36.0-47.0) Mean Corpuscular Volume 85 fL (79-100) Mean Corpuscular Hemoglobin 27 pg (25-35) Mean Corpuscular Hemoglobin Concent 33 g/dL (31-37) Red Cell Distribution Width 14.9 % (11.5-14.5) Platelet Count 205 x10^3/uL (140-400) Neutrophils (%) (Auto) 55 % (31-73) Lymphocytes (%) (Auto) 35 % (24-48) Monocytes (%) (Auto) 6 % (0-9) Eosinophils (%) (Auto) 3 % (0-3) Basophils (%) (Auto) 1 % (0-3) Neutrophils # (Auto) 3.0 x10^3/uL (1.8-7.7) Lymphocytes # (Auto) 1.9 x10^3/uL (1.0-4.8) Monocytes # (Auto) 0.3 x10^3/uL (0.0-1.1) Eosinophils # (Auto) 0.2 x10^3/uL (0.0-0.7) Basophils # (Auto) 0.0 x10^3/uL (0.0-0.2) Erythrocyte Sedimentation Rate 55 (0-25) Sodium Level 138 mmol/L (136-145) Potassium Level 3.5 mmol/L (3.5-5.1) Chloride Level 100 mmol/L (98-107) Carbon Dioxide Level 32 mmol/L (21-32) Anion Gap 6 (6-14) Blood Urea Nitrogen 21 mg/dL (7-20) Creatinine 1.3 mg/dL (0.6-1.0) Estimated GFR (Cockcroft-Gault) 42.4 BUN/Creatinine Ratio 16 (6-20) Glucose Level 226 mg/dL (70-99) Calcium Level 8.6 mg/dL (8.5-10.1) Total Bilirubin 0.2 mg/dL (0.2-1.0) Aspartate Amino Transf (AST/SGOT) 18 U/L (15-37) Alanine Aminotransferase (ALT/SGPT) 15 U/L (14-59) Alkaline Phosphatase 133 U/L (46-116) Total Protein 6.7 g/dL (6.4-8.2) Albumin 2.7 g/dL (3.4-5.0) Albumin/Globulin Ratio 0.7 (1.0-1.7) Test 03/30/19 15:28 03/30/19 16:17 Glucose (Fingerstick) 63 mg/dL (70-99) 71 mg/dL (70-99) Laboratory Tests Test 03/29/19 20:51 03/30/19 07:48 03/30/19 11:25 03/30/19 11:50 Glucose (Fingerstick) 162 mg/dL (70-99) 162 mg/dL (70-99) 240 mg/dL (70-99) White Blood Count 5.5 x10^3/uL (4.0-11.0) Red Blood Count 3.87 x10^6/uL (3.50-5.40) Hemoglobin 10.6 g/dL (12.0-15.5) Hematocrit 32.7 % (36.0-47.0) Mean Corpuscular Volume 85 fL (79-100) Mean Corpuscular Hemoglobin 27 pg (25-35) Mean Corpuscular Hemoglobin Concent 33 g/dL (31-37) Red Cell Distribution Width 14.9 % (11.5-14.5) Platelet Count 205 x10^3/uL (140-400) Neutrophils (%) (Auto) 55 % (31-73) Lymphocytes (%) (Auto) 35 % (24-48) Monocytes (%) (Auto) 6 % (0-9) Eosinophils (%) (Auto) 3 % (0-3) Basophils (%) (Auto) 1 % (0-3) Neutrophils # (Auto) 3.0 x10^3/uL (1.8-7.7) Lymphocytes # (Auto) 1.9 x10^3/uL (1.0-4.8) Monocytes # (Auto) 0.3 x10^3/uL (0.0-1.1) Eosinophils # (Auto) 0.2 x10^3/uL (0.0-0.7) Basophils # (Auto) 0.0 x10^3/uL (0.0-0.2) Erythrocyte Sedimentation Rate 55 (0-25) Sodium Level 138 mmol/L (136-145) Potassium Level 3.5 mmol/L (3.5-5.1) Chloride Level 100 mmol/L (98-107) Carbon Dioxide Level 32 mmol/L (21-32) Anion Gap 6 (6-14) Blood Urea Nitrogen 21 mg/dL (7-20) Creatinine 1.3 mg/dL (0.6-1.0) Estimated GFR (Cockcroft-Gault) 42.4 BUN/Creatinine Ratio 16 (6-20) Glucose Level 226 mg/dL (70-99) Calcium Level 8.6 mg/dL (8.5-10.1) Total Bilirubin 0.2 mg/dL (0.2-1.0) Aspartate Amino Transf (AST/SGOT) 18 U/L (15-37) Alanine Aminotransferase (ALT/SGPT) 15 U/L (14-59) Alkaline Phosphatase 133 U/L (46-116) Total Protein 6.7 g/dL (6.4-8.2) Albumin 2.7 g/dL (3.4-5.0) Albumin/Globulin Ratio 0.7 (1.0-1.7) Test 03/30/19 15:28 03/30/19 16:17 Glucose (Fingerstick) 63 mg/dL (70-99) 71 mg/dL (70-99) HARDY SHEPARD MD Mar 30, 2019 16:45
[2019-03-30] MEDS: LEVOTHYROXINE 100 MCG TABLET PO SCH (20:55)
[2019-03-30] MEDS: AMITRIPTYLINE HCL 25 MG TABLET. PO SCH (20:55)
[2019-03-30] MEDS: GABAPENTIN 300 MG CAPSULE. PO SCH (20:55)
[2019-03-30] MEDS: TOPIRAMATE 25 MG TABLET. PO SCH (20:55)
[2019-03-30] MEDS: LOVASTATIN 10 MG PO SCH (21:00)
[2019-03-30 22:50] LABS: BARBITURATES NEG (NEG); BENZODIAZEPINES NEG (NEG); CANNABINOIDS NEG (NEG); COCAINE NEG (NEG); METHADONE NEG (NEG); OPIATES NEG (NEG); PHENCYCLIDINE NEG (NEG)
[2019-03-30 22:51] LABS: AMPHETAMINE/METHAMPHETAMINE NEG (NEG)
[2019-03-31] MEDS: IV NORMAL SALINE 1000ML BAG 1,000 ML IV SCH ×2 (00:32→16:46)
[2019-03-31 03:00] VITALS: BP 100/67
[2019-03-31 07:00] VITALS: BP 142/87
[2019-03-31] MEDS: MIDODRINE 5 MG TABLET PO SCH ×3 (07:00→17:34)
--- NOTE | 2019-03-31 08:34 | NUR ---
SW following for pt for discharge planning. Chart reviewed. Pt lives at home with spouse. Neurology following pt. SW will be available as needed.
[2019-03-31] MEDS: FLUDROCORTISONE 0.1 MG TABLET PO SCH (09:42)
[2019-03-31] MEDS: METOPROLOL SUCC 24HR ER 25 MG TAB.ER.24H. PO SCH (09:43)
[2019-03-31] MEDS: TOPIRAMATE 25 MG TABLET. PO SCH ×2 (09:43→21:13)
[2019-03-31] MEDS: [UNRECOGNIZED DRUG - OTHER] SQ SCH (09:54)
[2019-03-31] MEDS: INSULIN GLARGINE SQ SCH (09:54)
[2019-03-31] MEDS: ENOXAPARIN 40 MG/0.4 ML SYRINGE. SQ SCH (09:55)
--- NOTE | 2019-03-31 10:25 | PDOC ---
PROGRESS NOTES History of Present Illness History of Present Illness VTE Prophylaxis Ordered VTE Prophylaxis Devices: Yes VTE Pharmacological Prophylaxi: Yes Assessment/Plan Assessment/Plan impression Accelerated hypertension hx orthostatic hypotension headache, intractable , worse 03/31 ct head 03/29 No acute intracranial abnormality is seen. peripheral neuropathy- ///neurontin hx Atypical chest pain: Acquired hypothyroidism: recent thyroidectomy r/t multinodular goiter. dm1, insulin GERD CKD multdrug allergies including contrast PT eval recent echo normal. also had tilt table normal NORMOCYTIC ANEMIA Elevated esr admit bp control consult neurology tele iv pain control iv fluid support home meds dvt prophylaxis iv hydralazine 10mg q 4 hrs prn bp support Vitals Vitals Vital Signs Date Time Temp Pulse Resp B/P (MAP) Pulse Ox O2 Delivery O2 Flow Rate FiO2 03/31/19 09:43 85 142/87 03/31/19 07:00 97.8 16 93 Room Air 97.8 Physical Exam General: Alert, Oriented X3, Cooperative, moderate distress Heart: Regular rate, Normal S1, Normal S2 Lungs: Clear Abdomen: Soft Extremities: No clubbing, No cyanosis Labs LABS Laboratory Tests Test 03/30/19 11:25 03/30/19 11:50 03/30/19 15:28 03/30/19 16:17 White Blood Count 5.5 x10^3/uL (4.0-11.0) Red Blood Count 3.87 x10^6/uL (3.50-5.40) Hemoglobin 10.6 g/dL (12.0-15.5) Hematocrit 32.7 % (36.0-47.0) Mean Corpuscular Volume 85 fL (79-100) Mean Corpuscular Hemoglobin 27 pg (25-35) Mean Corpuscular Hemoglobin Concent 33 g/dL (31-37) Red Cell Distribution Width 14.9 % (11.5-14.5) Platelet Count 205 x10^3/uL (140-400) Neutrophils (%) (Auto) 55 % (31-73) Lymphocytes (%) (Auto) 35 % (24-48) Monocytes (%) (Auto) 6 % (0-9) Eosinophils (%) (Auto) 3 % (0-3) Basophils (%) (Auto) 1 % (0-3) Neutrophils # (Auto) 3.0 x10^3/uL (1.8-7.7) Lymphocytes # (Auto) 1.9 x10^3/uL (1.0-4.8) Monocytes # (Auto) 0.3 x10^3/uL (0.0-1.1) Eosinophils # (Auto) 0.2 x10^3/uL (0.0-0.7) Basophils # (Auto) 0.0 x10^3/uL (0.0-0.2) Erythrocyte Sedimentation Rate 55 (0-25) Sodium Level 138 mmol/L (136-145) Potassium Level 3.5 mmol/L (3.5-5.1) Chloride Level 100 mmol/L (98-107) Carbon Dioxide Level 32 mmol/L (21-32) Anion Gap 6 (6-14) Blood Urea Nitrogen 21 mg/dL (7-20) Creatinine 1.3 mg/dL (0.6-1.0) Estimated GFR (Cockcroft-Gault) 42.4 BUN/Creatinine Ratio 16 (6-20) Glucose Level 226 mg/dL (70-99) Calcium Level 8.6 mg/dL (8.5-10.1) Total Bilirubin 0.2 mg/dL (0.2-1.0) Aspartate Amino Transf (AST/SGOT) 18 U/L (15-37) Alanine Aminotransferase (ALT/SGPT) 15 U/L (14-59) Alkaline Phosphatase 133 U/L (46-116) Total Protein 6.7 g/dL (6.4-8.2) Albumin 2.7 g/dL (3.4-5.0) Albumin/Globulin Ratio 0.7 (1.0-1.7) Glucose (Fingerstick) 240 mg/dL (70-99) 63 mg/dL (70-99) 71 mg/dL (70-99) Test 03/30/19 19:15 03/30/19 21:10 03/31/19 07:58 Urine Opiates Screen Neg (NEG) Urine Methadone Screen Neg (NEG) Urine Barbiturates Neg (NEG) Urine Phencyclidine Screen Neg (NEG) Urine Amphetamine/Methamphetamine Neg (NEG) Urine Benzodiazepines Screen Neg (NEG) Urine Cocaine Screen Neg (NEG) Urine Cannabinoids Screen Neg (NEG) Urine Ethyl Alcohol Neg (NEG) Glucose (Fingerstick) 182 mg/dL (70-99) 161 mg/dL (70-99) Assessment and Plan Assessmemt and Plan Problems Medical Problems: (1) Elevated blood pressure reading without diagnosis of hypertension Status: Acute (2) Migraine headache Status: Acute (3) Nausea Status: Acute Comment Review of Relevant I have reviewed the following items zurdo (where applicable) has been applied. Labs Laboratory Tests Test 03/29/19 20:51 03/30/19 07:48 03/30/19 11:25 03/30/19 11:50 Glucose (Fingerstick) 162 mg/dL (70-99) 162 mg/dL (70-99) 240 mg/dL (70-99) White Blood Count 5.5 x10^3/uL (4.0-11.0) Red Blood Count 3.87 x10^6/uL (3.50-5.40) Hemoglobin 10.6 g/dL (12.0-15.5) Hematocrit 32.7 % (36.0-47.0) Mean Corpuscular Volume 85 fL (79-100) Mean Corpuscular Hemoglobin 27 pg (25-35) Mean Corpuscular Hemoglobin Concent 33 g/dL (31-37) Red Cell Distribution Width 14.9 % (11.5-14.5) Platelet Count 205 x10^3/uL (140-400) Neutrophils (%) (Auto) 55 % (31-73) Lymphocytes (%) (Auto) 35 % (24-48) Monocytes (%) (Auto) 6 % (0-9) Eosinophils (%) (Auto) 3 % (0-3) Basophils (%) (Auto) 1 % (0-3) Neutrophils # (Auto) 3.0 x10^3/uL (1.8-7.7) Lymphocytes # (Auto) 1.9 x10^3/uL (1.0-4.8) Monocytes # (Auto) 0.3 x10^3/uL (0.0-1.1) Eosinophils # (Auto) 0.2 x10^3/uL (0.0-0.7) Basophils # (Auto) 0.0 x10^3/uL (0.0-0.2) Erythrocyte Sedimentation Rate 55 (0-25) Sodium Level 138 mmol/L (136-145) Potassium Level 3.5 mmol/L (3.5-5.1) Chloride Level 100 mmol/L (98-107) Carbon Dioxide Level 32 mmol/L (21-32) Anion Gap 6 (6-14) Blood Urea Nitrogen 21 mg/dL (7-20) Creatinine 1.3 mg/dL (0.6-1.0) Estimated GFR (Cockcroft-Gault) 42.4 BUN/Creatinine Ratio 16 (6-20) Glucose Level 226 mg/dL (70-99) Calcium Level 8.6 mg/dL (8.5-10.1) Total Bilirubin 0.2 mg/dL (0.2-1.0) Aspartate Amino Transf (AST/SGOT) 18 U/L (15-37) Alanine Aminotransferase (ALT/SGPT) 15 U/L (14-59) Alkaline Phosphatase 133 U/L (46-116) Total Protein 6.7 g/dL (6.4-8.2) Albumin 2.7 g/dL (3.4-5.0) Albumin/Globulin Ratio 0.7 (1.0-1.7) Test 03/30/19 15:28 03/30/19 16:17 03/30/19 19:15 03/30/19 21:10 Glucose (Fingerstick) 63 mg/dL (70-99) 71 mg/dL (70-99) 182 mg/dL (70-99) Urine Opiates Screen Neg (NEG) Urine Methadone Screen Neg (NEG) Urine Barbiturates Neg (NEG) Urine Phencyclidine Screen Neg (NEG) Urine Amphetamine/Methamphetamine Neg (NEG) Urine Benzodiazepines Screen Neg (NEG) Urine Cocaine Screen Neg (NEG) Urine Cannabinoids Screen Neg (NEG) Urine Ethyl Alcohol Neg (NEG) Test 03/31/19 07:58 Glucose (Fingerstick) 161 mg/dL (70-99) Laboratory Tests Test 03/30/19 11:25 03/30/19 11:50 03/30/19 15:28 03/30/19 16:17 White Blood Count 5.5 x10^3/uL (4.0-11.0) Red Blood Count 3.87 x10^6/uL (3.50-5.40) Hemoglobin 10.6 g/dL (12.0-15.5) Hematocrit 32.7 % (36.0-47.0) Mean Corpuscular Volume 85 fL (79-100) Mean Corpuscular Hemoglobin 27 pg (25-35) Mean Corpuscular Hemoglobin Concent 33 g/dL (31-37) Red Cell Distribution Width 14.9 % (11.5-14.5) Platelet Count 205 x10^3/uL (140-400) Neutrophils (%) (Auto) 55 % (31-73) Lymphocytes (%) (Auto) 35 % (24-48) Monocytes (%) (Auto) 6 % (0-9) Eosinophils (%) (Auto) 3 % (0-3) Basophils (%) (Auto) 1 % (0-3) Neutrophils # (Auto) 3.0 x10^3/uL (1.8-7.7) Lymphocytes # (Auto) 1.9 x10^3/uL (1.0-4.8) Monocytes # (Auto) 0.3 x10^3/uL (0.0-1.1) Eosinophils # (Auto) 0.2 x10^3/uL (0.0-0.7) Basophils # (Auto) 0.0 x10^3/uL (0.0-0.2) Erythrocyte Sedimentation Rate 55 (0-25) Sodium Level 138 mmol/L (136-145) Potassium Level 3.5 mmol/L (3.5-5.1) Chloride Level 100 mmol/L (98-107) Carbon Dioxide Level 32 mmol/L (21-32) Anion Gap 6 (6-14) Blood Urea Nitrogen 21 mg/dL (7-20) Creatinine 1.3 mg/dL (0.6-1.0) Estimated GFR (Cockcroft-Gault) 42.4 BUN/Creatinine Ratio 16 (6-20) Glucose Level 226 mg/dL (70-99) Calcium Level 8.6 mg/dL (8.5-10.1) Total Bilirubin 0.2 mg/dL (0.2-1.0) Aspartate Amino Transf (AST/SGOT) 18 U/L (15-37) Alanine Aminotransferase (ALT/SGPT) 15 U/L (14-59) Alkaline Phosphatase 133 U/L (46-116) Total Protein 6.7 g/dL (6.4-8.2) Albumin 2.7 g/dL (3.4-5.0) Albumin/Globulin Ratio 0.7 (1.0-1.7) Glucose (Fingerstick) 240 mg/dL (70-99) 63 mg/dL (70-99) 71 mg/dL (70-99) Test 03/30/19 19:15 03/30/19 21:10 03/31/19 07:58 Urine Opiates Screen Neg (NEG) Urine Methadone Screen Neg (NEG) Urine Barbiturates Neg (NEG) Urine Phencyclidine Screen Neg (NEG) Urine Amphetamine/Methamphetamine Neg (NEG) Urine Benzodiazepines Screen Neg (NEG) Urine Cocaine Screen Neg (NEG) Urine Cannabinoids Screen Neg (NEG) Urine Ethyl Alcohol Neg (NEG) Glucose (Fingerstick) 182 mg/dL (70-99) 161 mg/dL (70-99) Medications Current Medications Prochlorperazine Edisylate (Compazine) 10 mg 1X ONCE IM Last administered on 03/29/19 17:42; Start 03/29/19 at 17:30; Stop 03/29/19 at 17:31; Status DC Fentanyl Citrate (Fentanyl 2ml Vial) 50 mcg 1X ONCE IM Last administered on 03/29/19 17:42; Start 03/29/19 at 17:30; Stop 03/29/19 at 17:31; Status DC Ondansetron HCl (Zofran) 4 mg PRN Q8HRS PRN IV NAUSEA/VOMITING; Start 03/29/19 at 18:15; Stop 03/29/19 at 18:56; Status DC Fentanyl Citrate (Fentanyl 2ml Vial) 50 mcg Q2HR PRN IV PAIN Last administered on 03/29/19at 20:55; Start 03/29/19 at 18:15; Stop 03/29/19 at 22:00; Status DC Amitriptyline HCl (Elavil) 50 mg QHS PO Last administered on 03/30/19at 20:55; Start 03/29/19 at 21:00 Cetirizine HCl (ZyrTEC) 10 mg PRN DAILY PRN PO ALLERGIES/congestion; Start 03/29/19 at 18:15 Fludrocortisone Acetate (Florinef) 0.1 mg DAILY PO Last administered on 03/31/19at 09:42; Start 03/30/19 at 09:00 Gabapentin (Neurontin) 600 mg HS PO Last administered on 03/30/19at 20:55; Start 03/29/19 at 21:00 Levothyroxine Sodium (Synthroid) 100 mcg HS PO ; Start 03/29/19 at 21:00; Stop 03/29/19 at 20:41; Status DC Sodium Chloride (Saline Mist Nasal) 1 jacques PRN Q1HR PRN NS NASAL CONGESTION; Start 03/29/19 at 18:15 Non-Formulary Medication (Insulin Aspart (Novolog Flexpen)) 1 unit TIDAC SQ ; Start 03/30/19 at 07:30; Status UNV Insulin Glargine (Lantus Syringe) 30 unit DAILY08 SQ ; Start 03/30/19 at 08:00; Stop 03/30/19 at 10:01; Status DC Non-Formulary Medication (Lovastatin ) 10 mg HS PO ; Start 03/29/19 at 21:00; Status UNV Midodrine (Proamatine) 10 mg [id number] PO ; Start 03/30/19 at 07:00 Ondansetron HCl (Zofran Odt) 4 mg PRN Q8HRS PRN PO NAUSEA/VOMITING 1ST CHOICE; Start 03/29/19 at 18:30 Sodium Chloride (Normal Saline Flush) 3 ml QSHIFT PRN IV AFTER MEDS AND BLOOD DRAWS; Start 03/29/19 at 18:45 Sodium Chloride 1,000 ml @ 100 mls/hr Q10H IV Last administered on 03/31/19at 00:32; Start 03/29/19 at 18:45 Ondansetron HCl (Zofran) 4 mg PRN Q4HRS PRN IV NAUSEA/VOMITING; Start 03/29/19 at 18:45 Zolpidem Tartrate (Ambien) 5 mg PRN QHS PRN PO INSOMNIA; Start 03/29/19 at 18:45 Acetaminophen (Tylenol) 650 mg PRN Q4HRS PRN PO TEMP OVER 100.4F OR MILD PAIN Last administered on 03/30/19at 21:05; Start 03/29/19 at 18:45 Al Hydroxide/Mg Hydroxide (Mylanta Plus Xs) 30 ml PRN DAILY PRN PO HEARTBURN / GAS; Start 03/29/19 at 18:45 Clonidine HCl (Catapres) 0.1 mg PRN Q6HRS PRN PO SBP>160 OR DBP>90; Start 03/29/19 at 18:45 Docusate Sodium (Colace) 100 mg PRN BID PRN PO CONSTIPATION; Start 03/29/19 at 18:45 Albuterol Sulfate (Ventolin Neb Soln) 2.5 mg PRN Q4HRS PRN NEB SHORTNESS OF BREATH; Start 03/29/19 at 18:45 Lorazepam (Ativan) 0.5 mg PRN Q4HRS PRN PO ANXIETY / AGITATION; Start 03/29/19 at 18:45 Lorazepam (Ativan Inj) 2 mg PRN Q4HRS PRN IV ANXIETY / AGITATION; Start 03/29/19 at 18:45 Enoxaparin Sodium (Lovenox 40mg Syringe) 40 mg DAILY SQ Last administered on 03/31/19at 09:55; Start 03/30/19 at 09:00 Hydralazine HCl (Apresoline Inj) 10 mg PRN Q4HRS PRN IVP HYPERTENSION Last administered on 03/29/19at 20:54; Start 03/29/19 at 19:00 Levothyroxine Sodium (Synthroid) 200 mcg HS PO Last administered on 03/30/19at 20:55; Start 03/29/19 at 21:00 Insulin Human Lispro (HumaLOG) for blood glucose > 180, g... TIDWMEALS SQ ; Start 03/30/19 at 08:00; Stop 03/30/19 at 10:01; Status DC Dextrose (Dextrose 50%-Water Syringe) 12.5 gm PRN Q15MIN PRN IV SEE COMMENTS; Start 03/29/19 at 23:00 Non-Formulary Medication 1 ea TIDAC SQ Last administered on 03/30/19at 12:04; Start 03/30/19 at 11:30 Non-Formulary Medication 1 ea DAILY SQ Last administered on 03/31/19at 09:54; Start 03/31/19 at 09:00 Metoprolol Succinate (Toprol Xl) 25 mg 1X ONCE PO Last administered on 03/30/19at 12:24; Start 03/30/19 at 12:00; Stop 03/30/19 at 12:05; Status DC Metoprolol Succinate (Toprol Xl) 25 mg DAILY PO Last administered on 03/31/19at 09:43; Start 03/31/19 at 09:00 Topiramate (Topamax) 25 mg BID PO Last administered on 03/31/19at 09:43; Start 03/30/19 at 21:00 Active Scripts Active Zofran (Ondansetron Hcl) 4 Mg Tablet 1 Tab PO PRN Q6-8HRS Doxycycline Hyclate 100 Mg Tablet 1 Tab PO BID [place] (Sodium Chloride) 44 Ml [place] 1 Jacques NS PRN Q1HR PRN 28 Days Cetirizine Hcl 10 Mg Tablet 10 Mg PO PRN DAILY PRN 10 Days Fludrocortisone Acetate 0.1 Mg Tablet 0.1 Mg PO DAILY 30 Days Amitriptyline Hcl 25 Mg Tablet 50 Mg PO QHS 30 Days Reported Levothyroxine Sodium 100 Mcg Tablet 200 Mcg PO HS Novolog Flexpen (Insulin Aspart) 100 Unit/1 Ml Insuln.pen 1 Unit SQ TIDAC PER SLIDING SCALE Midodrine Hcl 10 Mg Tablet 10 Mg PO TID Basaglar Kwikpen U-100 (Insulin Glargine,Hum.rec.anlog) 100 Unit/1 Ml Insuln.pen 30 Unit SQ DAILY08 Lovastatin 10 Mg Tablet 10 Mg PO HS Gabapentin (Gabapentin) 300 Mg Capsule 600 Mg PO HS Vitals/I & O Vital Sign - Last 24 Hours 03/30/19 03/30/19 03/30/19 03/30/19 10:55 11:43 12:24 15:00 Temp 99.0 98.1 99.0 98.1 Pulse 92 92 92 91 Resp 16 18 B/P (MAP) 130/79 (96) 130/79 130/79 137/81 (99) Pulse Ox 93 94 O2 Delivery Room Air Room Air 03/30/19 03/30/19 03/30/19 03/31/19 19:00 20:00 23:00 03:00 Temp 98.3 98.2 98.2 98.3 98.2 98.2 Pulse 88 84 83 Resp 20 20 16 B/P (MAP) 132/84 (100) 135/77 (96) 100/67 (78) Pulse Ox 98 16 O2 Delivery Room Air 03/31/19 03/31/19 03/31/19 07:00 07:00 09:43 Temp 97.8 97.8 Pulse 85 85 85 Resp 16 B/P (MAP) 142/87 142/87 (105) 142/87 Pulse Ox 93 O2 Delivery Room Air Intake and Output 03/30/19 03/30/19 03/31/19 15:00 23:00 07:00 Intake Total 750 ml 450 ml Balance 750 ml 450 ml PARMINDER LARSON MD Mar 31, 2019 10:25
[2019-03-31] MEDS: ACETAMINOPHEN 325 MG TABLET. PO PRN ×3 (10:28→21:14)
[2019-03-31 11:00] VITALS: BP 159/92
--- NOTE | 2019-03-31 12:31 | PDOC ---
PROGRESS NOTES Assessment Assessment Worsening of chronic migraine headaches. Nausea. HTN. HLD. COPD. RECOMMENDATIONS/PLAN: HCT performed and ICH and SAH ruled out. Pain control. Topamax 25 mg bid with titration up. Metoprolol 25 mg daily. Brain MRI on 06/09/18 was a negative study. HISTORY OF THE PRESENT ILLNESS: This is a 58-year-old female patient with history of chronic headaches for many years. Her headaches were not frequent in the past, but has headaches and nausea this time to come to the ER of [facility]. Patient rated her headache 10 over 10 at her previous visit and stated her pain dropped to 3/10 and felt comfortable to go home but while she was in the waiting area for her ride she complaining of nausea without vomiting and her headaches increasing to 6/10. No symptoms of MS changes, projectile vomiting, decreased vision, blurred vision, diplopia, ataxia, focalized sensory or motor deficits. Past Medical History Diabetes-Type I, High Cholesterol, Hypothyroid, Hypotension, Stroke? NEUROPATHY, ORTHOSTATIC HYPOTENSION. Cardiovascular: Hyperlipidemia. Pulmonary: COPD CENTRAL NERVOUS SYSTEM: CVA, Periperal neuropathy GI: No pertinent hx Heme/Onc: No pertinent hx Hepatobiliary: No pertinent hx Psych: No pertinent hx Musculoskeletal: Osteoarthritis Rheumatologic: No pertinent hx Infectious disease: Other Renal/: No pertinent hx Endocrine: Diabetes, Hyperthyroidism Past Surgical History L BREAST L FOOT R KNEE Family History Diabetes, High Cholesterol, Hypertension Allergies Coded Allergies: atorvastatin (Verified Allergy, Severe, throat swells, 10/13/18) ciprofloxacin (Verified Allergy, Severe, "THROAT CLOSES UP" ANAPHYLAXIS, 10/13/18) hydroxyzine (Verified Allergy, Severe, DIZZINESS, "I FEEL LIKE IM DRUNK", 10/13/18) lidocaine (Verified Allergy, Severe, THROAT SWELLING, 02/28/19) raspberry (Verified Allergy, Severe, CHOKING SENSATION IN THROAT, 10/13/18) tramadol (Verified Allergy, Severe, VOMITING, 10/13/18) amoxicillin (Verified Allergy, Intermediate, 10/13/18) aspirin (Verified Allergy, Intermediate, 10/13/18) cephalexin (Verified Allergy, Intermediate, 10/13/18) codeine (Verified Allergy, Intermediate, 10/13/18) ibuprofen (Verified Allergy, Intermediate, 10/13/18) morphine (Verified Allergy, Intermediate, 10/13/18) simvastatin (Verified Allergy, Intermediate, 10/13/18) LEGS BUCKEL, LOSE FEELING sucralose (Verified Allergy, Intermediate, 11/09/18) pregabalin (Verified Allergy, Mild, vomiting, 10/13/18) MEDICATIONS: Refer to MAR SOCIAL HISTORY: Lives at home. Denies current smoking, drinking, and illicit drug use. REVIEW OF SYSTEMS: Constitutional: No malnutrition, weight loss, cachexia. Head: No traumatic brain or head injury. Skin: No edema, or rash. Ear: No infection. Eyes: No vision loss or color blindness. Nose: No bleeding or purulent discharges. Hearing: No hearing decrease. Neck: No injury. Breast: No history of cancer, masses,or discharges. Cardiac: No MA, arrhythmia,claudication, CAD. Pulmonary: COPD. GI: No GI ulcer, GI bleeding. Urinary/genital: UTI. Endocrinologic: No cousin face, craniofacial dysmorphism, polydactyly. Skeletomuscular: No muscular atrophy, deformity. Neurological: see HP. Psychiatric: Denies drug use/abuse. Otherwise, not [id number] review of systems. PHYSICAL EXAMINATION: General appearance is in subacute distress. HEENT: Normocephalic and nontraumatic. Eyes, nose, ears, and throat are unremarkable. Neck is supple. No lymphadenopathy. No bruits are heard over the carotid artery. No crepitus. Cardiovascular: S1, S2, regular rate and rhythm. Pulmonary: Clear to auscultation bilaterally. Abdomen: Bowel sounds are positive. Abdomen is soft, nontender, and nondistended. Extremities: No rash, lesions, or edema. No restriction of range of motion NEUROLOGICAL EXAMINATION: Alert Oriented to time, place and person. PERRL. EOMI. CN: no focal findings. Muscle tone: within normal. Muscle strength: 5 DTR: 2 Plantar reflex: Flexor response bilaterally Gait: At baseline normal. Sensory exam: no abnormal findings. No cerebellar signs elicited. F-T-N test accurate. Objective Objective Vital Signs Date Time Temp Pulse Resp B/P (MAP) Pulse Ox O2 Delivery O2 Flow Rate FiO2 03/31/19 09:43 85 142/87 03/31/19 07:00 97.8 16 93 Room Air 97.8 Intake and Output 03/31/19 07:00 Intake Total 1200 ml Balance 1200 ml Intake Oral 1200 ml # Voids 4 Vitals Signs Vitals VS - Last 72 Hours, by Label Date Time Temp Pulse Resp B/P (MAP) Pulse Ox O2 Delivery O2 Flow Rate FiO2 03/31/19 09:43 85 142/87 03/31/19 07:00 97.8 85 16 142/87 (105) 93 Room Air 97.8 03/31/19 07:00 85 142/87 03/31/19 03:00 98.2 83 16 100/67 (78) 16 98.2 03/30/19 23:00 98.2 84 20 135/77 (96) 98.2 03/30/19 20:00 Room Air 03/30/19 19:00 98.3 88 20 132/84 (100) 98 98.3 03/30/19 15:00 98.1 91 18 137/81 (99) 94 Room Air 98.1 03/30/19 12:24 92 130/79 03/30/19 11:43 92 130/79 03/30/19 10:55 99.0 92 16 130/79 (96) 93 Room Air 99.0 03/30/19 07:00 98.6 91 16 119/76 (90) 93 Room Air 98.6 03/30/19 07:00 86 102/61 Laboratory Laboratory Laboratory Tests Test 03/30/19 15:28 03/30/19 16:17 03/30/19 19:15 03/30/19 21:10 Glucose (Fingerstick) 63 mg/dL (70-99) 71 mg/dL (70-99) 182 mg/dL (70-99) Urine Opiates Screen Neg (NEG) Urine Methadone Screen Neg (NEG) Urine Barbiturates Neg (NEG) Urine Phencyclidine Screen Neg (NEG) Urine Amphetamine/Methamphetamine Neg (NEG) Urine Benzodiazepines Screen Neg (NEG) Urine Cocaine Screen Neg (NEG) Urine Cannabinoids Screen Neg (NEG) Urine Ethyl Alcohol Neg (NEG) Test 03/31/19 07:58 03/31/19 11:45 Glucose (Fingerstick) 161 mg/dL (70-99) 214 mg/dL (70-99) Medication Medications Current Medications Metoprolol Succinate (Toprol Xl) 25 mg DAILY PO Last administered on 03/31/19at 09:43; Start 03/31/19 at 09:00 Non-Formulary Medication 1 ea DAILY SQ Last administered on 03/31/19at 09:54; Start 03/31/19 at 09:00 Topiramate (Topamax) 25 mg BID PO Last administered on 03/31/19at 09:43; Start 03/30/19 at 21:00 Comment Review of Relevant I have reviewed the following items zurdo (where applicable) has been applied. HARDY SHEPARD MD Mar 31, 2019 12:31
[2019-03-31 15:00] VITALS: BP 146/89
--- NOTE | 2019-03-31 16:59 | NUR ---
This RN was informed by MARCOS Horne that the pt's BS was 57. Pt given grape juice. Will recheck and continue to monitor pt.
--- NOTE | 2019-03-31 17:31 | NUR ---
Pt's BS rechecked and was 68. Another juice given to the pt. Will continue to monitor.
[2019-03-31 19:00] VITALS: BP 148/81
[2019-03-31] MEDS: LOVASTATIN 10 MG PO SCH (21:00)
[2019-03-31] MEDS: AMITRIPTYLINE HCL 25 MG TABLET. PO SCH (21:12)
[2019-03-31] MEDS: LEVOTHYROXINE 100 MCG TABLET PO SCH (21:15)
[2019-03-31] MEDS: GABAPENTIN 300 MG CAPSULE. PO SCH (21:15)
[2019-03-31 23:03] VITALS: BP 149/89
[2019-04-01] MEDS: ACETAMINOPHEN 325 MG TABLET. PO PRN ×2 (01:55→08:49)
[2019-04-01] MEDS: IV NORMAL SALINE 1000ML BAG 1,000 ML IV SCH ×3 (03:03→16:45)
[2019-04-01 03:04] VITALS: BP 137/75
[2019-04-01] MEDS: MIDODRINE 5 MG TABLET PO SCH ×3 (07:00→17:27)
[2019-04-01 07:10] VITALS: BP 165/91
[2019-04-01] MEDS: TOPIRAMATE 25 MG TABLET. PO SCH ×2 (08:49→21:00)
[2019-04-01] MEDS: METOPROLOL SUCC 24HR ER 25 MG TAB.ER.24H. PO SCH (08:50)
[2019-04-01] MEDS: ENOXAPARIN 40 MG/0.4 ML SYRINGE. SQ SCH (08:50)
[2019-04-01] MEDS: [UNRECOGNIZED DRUG - OTHER] SQ SCH (08:51)
[2019-04-01] MEDS: INSULIN GLARGINE SQ SCH (08:51)
--- NOTE | 2019-04-01 10:04 | PDOC ---
[facility] [facility] PROGRESS NOTE Chief Complaint Chief Complaint Accelerated hypertension hx orthostatic hypotension headache, intractable , worse 03/31 ct head 03/29 No acute intracranial abnormality is seen. peripheral neuropathy- ///neurontin hx Atypical chest pain: Acquired hypothyroidism: recent thyroidectomy r/t multinodular goiter. dm1, insulin GERD CKD multdrug allergies including contrast PT eval recent echo normal. also had tilt table normal NORMOCYTIC ANEMIA Elevated esr History of Present Illness History of Present Illness VTE Prophylaxis Ordered VTE Prophylaxis Devices: Yes VTE Pharmacological Prophylaxi: Yes Assessment/Plan Assessment/Plan impression Accelerated hypertension hx orthostatic hypotension headache, intractable , worse 03/31 ct head 03/29 No acute intracranial abnormality is seen. peripheral neuropathy- ///neurontin hx Atypical chest pain: Acquired hypothyroidism: recent thyroidectomy r/t multinodular goiter. dm1, insulin GERD CKD multdrug allergies including contrast PT eval recent echo normal. also had tilt table normal NORMOCYTIC ANEMIA Elevated esr admit bp control consult neurology tele iv pain control iv fluid support home meds dvt prophylaxis iv hydralazine 10mg q 4 hrs prn bp support 04/01/19 Pt seen and examined by me PRATT RN Chart reviewed Vitals/I&O Vitals/I&O: Vital Signs Date Time Temp Pulse Resp B/P (MAP) Pulse Ox O2 Delivery O2 Flow Rate FiO2 04/01/19 08:50 89 165/91 04/01/19 07:10 98.0 20 97 Room Air 98.0 I & O 03/31/19 03/31/19 04/01/19 15:00 23:00 07:00 Intake Total 1850 ml 800 ml Balance 1850 ml 800 ml Physical Exam Physical Exam: Neuro: PERRLA, EOMI, strength 5/5 in all extremities General: Alert, Oriented X3, Cooperative Heart: Regular rate, Normal S1, Normal S2 Lungs: Clear Abdomen: Soft Extremities: No clubbing, No cyanosis Skin: No rashes, No breakdown Labs Labs: Laboratory Tests Test 03/31/19 11:45 03/31/19 16:22 03/31/19 17:02 03/31/19 20:37 Glucose (Fingerstick) 214 mg/dL (70-99) 57 mg/dL (70-99) 68 mg/dL (70-99) 78 mg/dL (70-99) Test 03/31/19 22:59 04/01/19 07:53 Glucose (Fingerstick) 133 mg/dL (70-99) 105 mg/dL (70-99) Review of Systems Review of Systems: (+) BELL, double vision (-) CP, SOB, focal weakness Assessment and Plan Assessmemt and Plan Problems Medical Problems: (1) Elevated blood pressure reading without diagnosis of hypertension Status: Acute (2) Migraine headache Status: Acute (3) Nausea Status: Acute Accelerated hypertension hx orthostatic hypotension headache, intractable , worse 03/31 ct head 03/29 No acute intracranial abnormality is seen. peripheral neuropathy- ///neurontin hx Atypical chest pain: Acquired hypothyroidism: recent thyroidectomy r/t multinodular goiter. dm1, insulin GERD CKD multdrug allergies including contrast PT eval recent echo normal. also had tilt table normal NORMOCYTIC ANEMIA Elevated esr Plan: appreciate neurology recommendations pain control dvt ppx PT/OT full code Comment Review of Relevant I have reviewed the following items zurdo (where applicable) has been applied. NIMESH LANIER III DO Apr 01, 2019 10:04
[2019-04-01 11:22] VITALS: BP 161/87
[2019-04-01] MEDS: FLUDROCORTISONE 0.1 MG TABLET PO SCH (12:08)
--- NOTE | 2019-04-01 12:08 | NUR ---
Wilder scanned at 0900 did not take, rescanned now, but was given at scheduled times.
--- NOTE | 2019-04-01 12:11 | NUR ---
5 units Novolog Insulin SQ for blood sugar 184 given per emar instruction.
--- NOTE | 2019-04-01 13:35 | PDOC2 ---
CONSULT Date of Consult Date of Consult DATE: 04/01/19 TIME: 13:33 Reason for Consult Reason for Consult: RUQ abd pain/anemia Past Medical History Cardiovascular: Hyperlipidemia, Other Pulmonary: COPD CENTRAL NERVOUS SYSTEM: CVA, Periperal neuropathy GI: No pertinent hx Heme/Onc: No pertinent hx Hepatobiliary: No pertinent hx Psych: No pertinent hx Musculoskeletal: Osteoarthritis Rheumatologic: No pertinent hx Infectious disease: Other Renal/: No pertinent hx Endocrine: Diabetes, Hyperthyroidism Past Surgical History Past Surgical History: Other Family History Family History: Diabetes, High Cholestrol, Hypertension Social History No ALCOHOL: none Drugs: None Lives: with Family Current Problem List Problem List Problems Medical Problems: (1) Elevated blood pressure reading without diagnosis of hypertension Status: Acute (2) Migraine headache Status: Acute (3) Nausea Status: Acute Current Medications Current Medications Current Medications Prochlorperazine Edisylate (Compazine) 10 mg 1X ONCE IM Last administered on 05/30/18at 17:42; Start 03/29/19 at 17:30; Stop 03/29/19 at 17:31; Status DC Fentanyl Citrate (Fentanyl 2ml Vial) 50 mcg 1X ONCE IM Last administered on 03/29/19at 17:42; Start 03/29/19 at 17:30; Stop 03/29/19 at 17:31; Status DC Ondansetron HCl (Zofran) 4 mg PRN Q8HRS PRN IV NAUSEA/VOMITING; Start 03/29/19 at 18:15; Stop 03/29/19 at 18:56; Status DC Fentanyl Citrate (Fentanyl 2ml Vial) 50 mcg Q2HR PRN IV PAIN Last administered on 03/29/19at 20:55; Start 03/29/19 at 18:15; Stop 03/29/19 at 22:00; Status DC Amitriptyline HCl (Elavil) 50 mg QHS PO Last administered on 03/31/19at 21:12; Start 03/29/19 at 21:00 Cetirizine HCl (ZyrTEC) 10 mg PRN DAILY PRN PO ALLERGIES/congestion Last administered on 04/01/19at 08:49; Start 03/29/19 at 18:15 Fludrocortisone Acetate (Florinef) 0.1 mg DAILY PO Last administered on 04/01/19at 12:08; Start 03/30/19 at 09:00 Gabapentin (Neurontin) 600 mg HS PO Last administered on 03/31/19at 21:15; Start 03/29/19 at 21:00 Levothyroxine Sodium (Synthroid) 100 mcg HS PO ; Start 03/29/19 at 21:00; Stop 03/29/19 at 20:41; Status DC Sodium Chloride (Saline Mist Nasal) 1 jacques PRN Q1HR PRN NS NASAL CONGESTION; St art 03/29/19 at 18:15 Non-Formulary Medication (Insulin Aspart (Novolog Flexpen)) 1 unit TIDAC SQ ; Start 03/30/19 at 07:30; Status UNV Insulin Glargine (Lantus Syringe) 30 unit DAILY08 SQ ; Start 03/30/19 at 08:00; Stop 03/30/19 at 10:01; Status DC Non-Formulary Medication (Lovastatin ) 10 mg HS PO ; Start 03/29/19 at 21:00; Status UNV Midodrine (Proamatine) 10 mg FOQ610 PO ; Start 03/30/19 at 07:00 Ondansetron HCl (Zofran Odt) 4 mg PRN Q8HRS PRN PO NAUSEA/VOMITING 1ST CHOICE; Start 03/29/19 at 18:30 Sodium Chloride (Normal Saline Flush) 3 ml QSHIFT PRN IV AFTER MEDS AND BLOOD DRAWS; Start 03/29/19 at 18:45 Sodium Chloride 1,000 ml @ 100 mls/hr Q10H IV Last administered on 04/01/19at 03:03; Start 03/29/19 at 18:45 Ondansetron HCl (Zofran) 4 mg PRN Q4HRS PRN IV NAUSEA/VOMITING; Start 03/29/19 at 18:45 Zolpidem Tartrate (Ambien) 5 mg PRN QHS PRN PO INSOMNIA; Start 03/29/19 at 1 8:45 Acetaminophen (Tylenol) 650 mg PRN Q4HRS PRN PO TEMP OVER 100.4F OR MILD PAIN Last administered on 04/01/19at 08:49; Start 03/29/19 at 18:45 Al Hydroxide/Mg Hydroxide (Mylanta Plus Xs) 30 ml PRN DAILY PRN PO HEARTBURN / GAS; Start 03/29/19 at 18:45 Clonidine HCl (Catapres) 0.1 mg PRN Q6HRS PRN PO SBP>160 OR DBP>90; Start 03/29/19 at 18:45 Docusate Sodium (Colace) 100 mg PRN BID PRN PO CONSTIPATION; Start 03/29/19 at 18:45 Albuterol Sulfate (Ventolin Neb Soln) 2.5 mg PRN Q4HRS PRN NEB SHORTNESS OF B REATH; Start 03/29/19 at 18:45 Lorazepam (Ativan) 0.5 mg PRN Q4HRS PRN PO ANXIETY / AGITATION; Start 03/29/19 at 18:45 Lorazepam (Ativan Inj) 2 mg PRN Q4HRS PRN IV ANXIETY / AGITATION; Start 03/29/19 at 18:45 Enoxaparin Sodium (Lovenox 40mg Syringe) 40 mg DAILY SQ Last administered on 04/01/19at 08:50; Start 03/30/19 at 09:00 Hydralazine HCl (Apresoline Inj) 10 mg PRN Q4HRS PRN IVP HYPERTENSION Last administered on 03/29/19at 20:54; Start 03/29/19 at 19:00 Levothyroxine Sodium (Synthroid) 200 mcg HS PO Last administered on 03/31/19at 21:15; Start 03/29/19 at 21:00 Insulin Human Lispro (HumaLOG) for blood glucose > 180, g... TIDWMEALS SQ ; Start 03/30/19 at 08:00; Stop 03/30/19 at 10:01; Status DC Dextrose (Dextrose 50%-Water Syringe) 12.5 gm PRN Q15MIN PRN IV SEE COMMENTS; Start 03/29/19 at 23:00 Non-Formulary Medication 1 ea TIDAC SQ Last administered on 04/01/19at 12:05; Start 03/30/19 at 11:30 Non-Formulary Medication 1 ea DAILY SQ Last administered on 04/01/19at 08:51; Start 03/31/19 at 09:00 Metoprolol Succinate (Toprol Xl) 25 mg 1X ONCE PO Last administered on 03/30/19at 12:24; Start 03/30/19 at 12:00; Stop 03/30/19 at 12:05; Status DC Metoprolol Succinate (Toprol Xl) 25 mg DAILY PO Last administered on 04/01/19at 08:50; Start 03/31/19 at 09:00 Topiramate (Topamax) 25 mg BID PO Last administered on 04/01/19at 08:49; Start 03/30/19 at 21:00 Active Scripts Active Zofran (Ondansetron Hcl) 4 Mg Tablet 1 Tab PO PRN Q6-8HRS Doxycycline Hyclate 100 Mg Tablet 1 Tab PO BID [place] (Sodium Chloride) 44 Ml [place] 1 Jacques NS PRN Q1HR PRN 28 Days Cetirizine Hcl 10 Mg Tablet 10 Mg PO PRN DAILY PRN 10 Days Fludrocortisone Acetate 0.1 Mg Tablet 0.1 Mg PO DAILY 30 Days Amitriptyline Hcl 25 Mg Tablet 50 Mg PO QHS 30 Days Reported Levothyroxine Sodium 100 Mcg Tablet 200 Mcg PO HS Novolog Flexpen (Insulin Aspart) 100 Unit/1 Ml Insuln.pen 1 Unit SQ TIDAC PER SLIDING SCALE Midodrine Hcl 10 Mg Tablet 10 Mg PO TID Basaglar Kwikpen U-100 (Insulin Glargine,Hum.rec.anlog) 100 Unit/1 Ml Insuln.pen 30 Unit SQ DAILY08 Lovastatin 10 Mg Tablet 10 Mg PO HS Gabapentin (Gabapentin) 300 Mg Capsule 600 Mg PO HS Allergies Allergies: Coded Allergies: atorvastatin (Verified Allergy, Severe, throat swells, 10/13/18) ciprofloxacin (Verified Allergy, Severe, "THROAT CLOSES UP" ANAPHYLAXIS, 10/13/18) hydroxyzine (Verified Allergy, Severe, DIZZINESS, "I FEEL LIKE IM DRUNK", 10/13/18) lidocaine (Verified Allergy, Severe, THROAT SWELLING, 02/28/19) raspberry (Verified Allergy, Severe, CHOKING SENSATION IN THROAT, 10/13/18) tramadol (Verified Allergy, Severe, VOMITING, 10/13/18) amoxicillin (Verified Allergy, Intermediate, 10/13/18) aspirin (Verified Allergy, Intermediate, 10/13/18) cephalexin (Verified Allergy, Intermediate, 10/13/18) codeine (Verified Allergy, Intermediate, 10/13/18) ibuprofen (Verified Allergy, Intermediate, 10/13/18) morphine (Verified Allergy, Intermediate, 10/13/18) simvastatin (Verified Allergy, Intermediate, 10/13/18) LEGS BUCKEL, LOSE FEELING sucralose (Verified Allergy, Intermediate, 11/09/18) pregabalin (Verified Allergy, Mild, vomiting, 10/13/18) Vitals VITALS Vital Signs Date Time Temp Pulse Resp B/P (MAP) Pulse Ox O2 Delivery O2 Flow Rate FiO2 04/01/19 12:35 92 161/87 04/01/19 11:22 97.4 20 96 Room Air 97.4 Labs Labs Laboratory Tests Test 03/30/19 15:28 03/30/19 16:17 03/30/19 19:15 03/30/19 21:10 Glucose (Fingerstick) 63 mg/dL (70-99) 71 mg/dL (70-99) 182 mg/dL (70-99) Urine Opiates Screen Neg (NEG) Urine Methadone Screen Neg (NEG) Urine Barbiturates Neg (NEG) Urine Phencyclidine Screen Neg (NEG) Urine Amphetamine/Methamphetamine Neg (NEG) Urine Benzodiazepines Screen Neg (NEG) Urine Cocaine Screen Neg (NEG) Urine Cannabinoids Screen Neg (NEG) Urine Ethyl Alcohol Neg (NEG) Test 03/31/19 07:58 03/31/19 11:45 03/31/19 16:22 03/31/19 17:02 Glucose (Fingerstick) 161 mg/dL (70-99) 214 mg/dL (70-99) 57 mg/dL (70-99) 68 mg/dL (70-99) Test 03/31/19 20:37 03/31/19 22:59 04/01/19 07:53 04/01/19 11:25 Glucose (Fingerstick) 78 mg/dL (70-99) 133 mg/dL (70-99) 105 mg/dL (70-99) 184 mg/dL (70-99) Laboratory Tests Test 03/31/19 16:22 03/31/19 17:02 03/31/19 20:37 03/31/19 22:59 Glucose (Fingerstick) 57 mg/dL (70-99) 68 mg/dL (70-99) 78 mg/dL (70-99) 133 mg/dL (70-99) Test 04/01/19 07:53 04/01/19 11:25 Glucose (Fingerstick) 105 mg/dL (70-99) 184 mg/dL (70-99) Assessment/Plan Assessment/Plan RUQ abd pain- with FHX SLE/ anemia. Malignancy in differential with colon/stomach leading differential. Patietn defers due to inability to prep. FEDERICO titer and anemia markers. Full note dictated NANCY GOTTI MD Apr 01, 2019 13:35
--- NOTE | 2019-04-01 15:22 | NUR ---
Patient requesting her medication list and states her daughter is a "[employer] Nurse" and states Topamax can cause double vision, patient states she told Dr. Mahajan when she looks in distance she is seeing double which she describes as seeing the object and a shadow. She states she does not want to take medication ordered by Dr. Mahajan any longer and that she also checked with her insurance and she cannot afford them. Will pass information on in report.
[2019-04-01 15:59] VITALS: BP 136/85
--- NOTE | 2019-04-01 18:08 | PDOC ---
PROGRESS NOTES Assessment Assessment Worsening of chronic migraine headaches. Nausea. HTN. HLD. COPD. RECOMMENDATIONS/PLAN: HCT performed and ICH and SAH ruled out. Pain control. Topamax 25 mg bid with titration up. Metoprolol 25 mg daily. Repeat ESR lab. Brain MRI on 06/09/18 was a negative study. HISTORY OF THE PRESENT ILLNESS: This is a 58-year-old female patient with history of chronic headaches for many years. Her headaches were not frequent in the past, but has headaches and nausea this time to come to the ER of [facility]. Patient rated her headache 10 over 10 at her previous visit and stated her pain dropped to 3/10 and felt comfortable to go home but while she was in the waiting area for her ride she complaining of nausea without vomiting and her headaches increasing to 6/10. No symptoms of MS changes, projectile vomiting, decreased vision, blurred vision, diplopia, ataxia, focalized sensory or motor deficits. 04/01/19: Stomach pain since 03/31/19. She reported to floor medical team. Past Medical History Diabetes-Type I, High Cholesterol, Hypothyroid, Hypotension, Stroke? NEUROPATHY, ORTHOSTATIC HYPOTENSION. Cardiovascular: Hyperlipidemia. Pulmonary: COPD CENTRAL NERVOUS SYSTEM: CVA, Periperal neuropathy GI: No pertinent hx Heme/Onc: No pertinent hx Hepatobiliary: No pertinent hx Psych: No pertinent hx Musculoskeletal: Osteoarthritis Rheumatologic: No pertinent hx Infectious disease: Other Renal/: No pertinent hx Endocrine: Diabetes, Hyperthyroidism Past Surgical History L BREAST L FOOT R KNEE Family History Diabetes, High Cholesterol, Hypertension Allergies Coded Allergies: atorvastatin (Verified Allergy, Severe, throat swells, 10/13/18) ciprofloxacin (Verified Allergy, Severe, "THROAT CLOSES UP" ANAPHYLAXIS, 10/13/18) hydroxyzine (Verified Allergy, Severe, DIZZINESS, "I FEEL LIKE IM DRUNK", 10/13/18) lidocaine (Verified Allergy, Severe, THROAT SWELLING, 02/28/19) raspberry (Verified Allergy, Severe, CHOKING SENSATION IN THROAT, 10/13/18) tramadol (Verified Allergy, Severe, VOMITING, 10/13/18) amoxicillin (Verified Allergy, Intermediate, 10/13/18) aspirin (Verified Allergy, Intermediate, 10/13/18) cephalexin (Verified Allergy, Intermediate, 10/13/18) codeine (Verified Allergy, Intermediate, 10/13/18) ibuprofen (Verified Allergy, Intermediate, 10/13/18) morphine (Verified Allergy, Intermediate, 10/13/18) simvastatin (Verified Allergy, Intermediate, 10/13/18) LEGS BUCKEL, LOSE FEELING sucralose (Verified Allergy, Intermediate, 11/09/18) pregabalin (Verified Allergy, Mild, vomiting, 10/13/18) MEDICATIONS: Refer to MAR SOCIAL HISTORY: Lives at home. Denies current smoking, drinking, and illicit drug use. REVIEW OF SYSTEMS: Constitutional: No malnutrition, weight loss, cachexia. Head: No traumatic brain or head injury. Skin: No edema, or rash. Ear: No infection. Eyes: No vision loss or color blindness. Nose: No bleeding or purulent discharges. Hearing: No hearing decrease. Neck: No injury. Breast: No history of cancer, masses,or discharges. Cardiac: No WI, arrhythmia,claudication, CAD. Pulmonary: COPD. GI: No GI ulcer, GI bleeding. Urinary/genital: UTI. Endocrinologic: No cousin face, craniofacial dysmorphism, polydactyly. Skeletomuscular: No muscular atrophy, deformity. Neurological: see HP. Psychiatric: Denies drug use/abuse. Otherwise, not [id number] review of systems. PHYSICAL EXAMINATION: General appearance is in subacute distress. HEENT: Normocephalic and nontraumatic. Eyes, nose, ears, and throat are unremarkable. Neck is supple. No lymphadenopathy. No bruits are heard over the carotid artery. No crepitus. Cardiovascular: S1, S2, regular rate and rhythm. Pulmonary: Clear to auscultation bilaterally. Abdomen: Bowel sounds are positive. Abdomen is soft, nontender, and nondistended. Extremities: No rash, lesions, or edema. No restriction of range of motion NEUROLOGICAL EXAMINATION: Alert Oriented to time, place and person. PERRL. EOMI. CN: no focal findings. Muscle tone: within normal. Muscle strength: 5 DTR: 2 Plantar reflex: Flexor response bilaterally Gait: At baseline normal. Sensory exam: no abnormal findings. No cerebellar signs elicited. F-T-N test accurate. Objective Objective Vital Signs Date Time Temp Pulse Resp B/P (MAP) Pulse Ox O2 Delivery O2 Flow Rate FiO2 04/01/19 17:27 91 136/85 04/01/19 15:59 98.4 20 97 Room Air 98.4 Intake and Output 04/01/19 07:00 Intake Total 2650 ml Balance 2650 ml Intake Oral 1650 ml IV Total 1000 ml # Voids 4 # Bowel Movements 1 Vitals Signs Vitals VS - Last 72 Hours, by Label Date Time Temp Pulse Resp B/P (MAP) Pulse Ox O2 Delivery O2 Flow Rate FiO2 04/01/19 17:27 91 136/85 04/01/19 15:59 98.4 91 20 136/85 (102) 97 Room Air 98.4 04/01/19 12:35 92 161/87 04/01/19 11:22 97.4 92 20 161/87 (111) 96 Room Air 97.4 04/01/19 08:50 89 165/91 04/01/19 08:00 Room Air 04/01/19 07:10 98.0 89 20 165/91 (115) 97 Room Air 98.0 04/01/19 07:00 89 165/91 04/01/19 03:04 97.8 90 20 137/75 (95) 98 Room Air 97.8 03/31/19 23:03 98.2 88 20 149/89 (109) 97 Room Air 98.2 03/31/19 20:30 Room Air 03/31/19 19:00 97.5 91 20 148/81 (103) 97 Room Air 97.5 03/31/19 17:34 90 146/89 03/31/19 15:00 97.9 90 18 146/89 (108) 99 Room Air 97.9 03/31/19 11:00 98.3 92 18 159/92 (114) 95 Room Air 98.3 03/31/19 09:43 85 142/87 03/31/19 08:00 Room Air 03/31/19 07:00 97.8 85 16 142/87 (105) 93 Room Air 97.8 03/31/19 07:00 85 142/87 Laboratory Laboratory Laboratory Tests Test 03/31/19 20:37 03/31/19 22:59 04/01/19 07:53 04/01/19 11:25 Glucose (Fingerstick) 78 mg/dL (70-99) 133 mg/dL (70-99) 105 mg/dL (70-99) 184 mg/dL (70-99) Test 12/7/19 13:55 04/01/19 17:02 Red Blood Count 3.45 x10^6/uL (3.50-5.70) Absolute Reticulocyte Count 0.055 x10^6/uL (0.020-0.120) Percent Reticulocyte Count 1.6 % (0.5-2.3) Immature Reticulocyte Fraction 0.43 (0.20-0.60) Iron Level 24 ug/dL (50-170) Total Iron Binding Capacity 243 ug/dL (250-450) Iron Saturation 10 % (15-34) Glucose (Fingerstick) 158 mg/dL (70-99) Comment Review of Relevant I have reviewed the following items zurdo (where applicable) has been applied. HARDY SHEPARD MD Apr 01, 2019 18:08
[2019-04-01 19:00] VITALS: BP 155/85
[2019-04-01] MEDS: LOVASTATIN 10 MG PO SCH (21:00)
[2019-04-01] MEDS: LEVOTHYROXINE 100 MCG TABLET PO SCH (21:21)
[2019-04-01] MEDS: GABAPENTIN 300 MG CAPSULE. PO SCH (21:22)
[2019-04-01] MEDS: AMITRIPTYLINE HCL 25 MG TABLET. PO SCH (21:22)
--- NOTE | 2019-04-01 22:33 | CONS ---
DATE OF CONSULTATION: 04/01/2019 GASTROENTEROLOGY CONSULTATION REASON FOR CONSULTATION: Intractable upper abdominal pain. HISTORY OF PRESENT ILLNESS: This is a 58-year-old female with past medical history significant for diabetes, hyperlipidemia, hypothyroidism, hypertension, history of stroke, neuropathy, orthostatic hypotension, possible [place]'s disease on Florinef replacement therapy is seen with band-like pain involving the right upper quadrant and radiating to the left upper quadrant as well as to her back. Multiple imaging studies, lab tests have all been performed, which have been unrevealing. The patient declines colonoscopy as she is unable tolerate the colon prep. Denies any change in weight or appetite or change in the pain with meals. Does have a family history of lupus with an uncle and rheumatoid arthritis with her mother. With continued issues, consultation is requested. Ultrasound while she was here was nonrevealing for obstruction, stones or malignancy. PAST MEDICAL HISTORY: Diabetes, hyperlipidemia, hypertension, hypothyroidism, status post cerebrovascular accident, status post left foot surgery, knee surgery, left breast surgery. MEDICATIONS: Please refer to the MAR. MEDICATIONS: Include metoprolol, topiramate, Lovenox, midodrine, gabapentin, amitriptyline, hydralazine, lorazepam. SOCIAL HISTORY: She is , not drink or smoke at this time. FAMILY HISTORY: As stated with rheumatoid arthritis in mother, lupus with an uncle. REVIEW OF SYSTEMS: Per records. PHYSICAL EXAMINATION: VITAL SIGNS: Temperature is 97.4, pulse 92, respirations 20, blood pressure 161/87. HEENT: Normocephalic, atraumatic head. Pupils and extraocular muscles are not tested. Sclerae anicteric. NECK: Supple. LUNGS: Clear. CARDIOVASCULAR: Reveals S1, S2 without S3, S4 or appreciable murmur. ABDOMEN: With a soft abdomen, normal bowel sounds, without appreciable hepatosplenomegaly. EXTREMITIES: Reveals no cyanosis, clubbing or edema. LABORATORY STUDIES: Hemoglobin is 10.6, hematocrit 32.7, white count of 6.5, platelet count is 205,000. Sed rate is 55. Sodium is 136, total protein 6.7, albumin 2.7, calcium 8.6, glucose 226, BUN 21, creatinine 1.3, total bilirubin 0.2, alkaline phosphatase 133, ALT 15, AST is 16, potassium 3.5, chloride 100, bicarbonate 32. CT of abdomen and pelvis a month ago was unrevealing for mass or obstruction. IMPRESSION: Epigastric abdominal pain with anemia, etiology is to be determined; malignancy of stomach or colon is certainly in the differential. The patient defers endoscopy at this time. We will check an FEDERICO level for her family history of lupus and we will reassess on Wednesday. NANCY GOTTI MD DR: GIRISH/ted JOB#: [id number] / [id number]
[2019-04-01 23:00] VITALS: BP 159/91
[2019-04-02] MEDS: IV NORMAL SALINE 1000ML BAG 1,000 ML IV SCH (02:45)
[2019-04-02 03:05] VITALS: BP 156/91
[2019-04-02] MEDS: MIDODRINE 5 MG TABLET PO SCH ×3 (07:00→17:15)
[2019-04-02 07:19] VITALS: BP 113/71
--- NOTE | 2019-04-02 07:48 | NUR ---
No Novolog insulin per emar order, blood sugar . Patient verb. understanding.
[2019-04-02] MEDS: FLUDROCORTISONE 0.1 MG TABLET PO SCH (08:28)
[2019-04-02] MEDS: [UNRECOGNIZED DRUG - OTHER] SQ SCH (08:29)
[2019-04-02] MEDS: INSULIN GLARGINE SQ SCH (08:29)
[2019-04-02] MEDS: ENOXAPARIN 40 MG/0.4 ML SYRINGE. SQ SCH (08:30)
[2019-04-02] MEDS: METOPROLOL SUCC 24HR ER 25 MG TAB.ER.24H. PO SCH ×2 (08:33→08:35)
[2019-04-02] MEDS: TOPIRAMATE 25 MG TABLET. PO SCH (08:35)
--- NOTE | 2019-04-02 11:14 | PDOC ---
[facility] [facility] PROGRESS NOTE Chief Complaint Chief Complaint Accelerated hypertension hx orthostatic hypotension headache, intractable , worse 03/31 ct head 03/29 No acute intracranial abnormality is seen. peripheral neuropathy- ///neurontin hx Atypical chest pain: Acquired hypothyroidism: recent thyroidectomy r/t multinodular goiter. dm1, insulin GERD CKD multdrug allergies including contrast PT eval recent echo normal. also had tilt table normal NORMOCYTIC ANEMIA Elevated esr History of Present Illness History of Present Illness VTE Prophylaxis Ordered VTE Prophylaxis Devices: Yes VTE Pharmacological Prophylaxi: Yes Assessment/Plan Assessment/Plan impression Accelerated hypertension hx orthostatic hypotension headache, intractable , worse 03/31 ct head 03/29 No acute intracranial abnormality is seen. peripheral neuropathy- ///neurontin hx Atypical chest pain: Acquired hypothyroidism: recent thyroidectomy r/t multinodular goiter. dm1, insulin GERD CKD multdrug allergies including contrast PT eval recent echo normal. also had tilt table normal NORMOCYTIC ANEMIA Elevated esr admit bp control consult neurology tele iv pain control iv fluid support home meds dvt prophylaxis iv hydralazine 10mg q 4 hrs prn bp support 04/01/19 Pt seen and examined by me DW RN Chart reviewed 04/02/19 Pt seen and examined by me Reports resolution of double vision States that headache is about the same as yesterday DW RN Chart reviewed Vitals/I&O Vitals/I&O: Vital Signs Date Time Temp Pulse Resp B/P (MAP) Pulse Ox O2 Delivery O2 Flow Rate FiO2 04/02/19 08:35 85 113/71 04/02/19 08:00 Room Air 04/02/19 07:19 98.1 18 92 98.1 I & O 04/01/19 04/01/19 04/02/19 15:00 23:00 07:00 Intake Total 250 ml Balance 250 ml Physical Exam Physical Exam: Neuro: PERRLA, EOMI, strength 5/5 in all extremities General: Alert, Oriented X3, Cooperative Heart: Regular rate, Normal S1, Normal S2 Lungs: Clear Abdomen: Soft Extremities: No clubbing, No cyanosis Skin: No rashes, No breakdown Labs Labs: Laboratory Tests Test 04/01/19 11:25 04/01/19 13:55 04/01/19 17:02 04/01/19 21:04 Glucose (Fingerstick) 184 mg/dL (70-99) 158 mg/dL (70-99) 170 mg/dL (70-99) Red Blood Count 3.45 x10^6/uL (3.50-5.70) Absolute Reticulocyte Count 0.055 x10^6/uL (0.020-0.120) Percent Reticulocyte Count 1.6 % (0.5-2.3) Immature Reticulocyte Fraction 0.43 (0.20-0.60) Iron Level 24 ug/dL (50-170) Total Iron Binding Capacity 243 ug/dL (250-450) Iron Saturation 10 % (15-34) Test 04/02/19 02:03 04/02/19 07:15 Glucose (Fingerstick) 125 mg/dL (70-99) 110 mg/dL (70-99) Review of Systems Review of Systems: (+) headache (-) CP, SOB, vision changes Assessment and Plan Assessmemt and Plan Problems Medical Problems: (1) Elevated blood pressure reading without diagnosis of hypertension Status: Acute (2) Migraine headache Status: Acute (3) Nausea Status: Acute Accelerated hypertension hx orthostatic hypotension headache, intractable , worse 03/31 ct head 03/29 No acute intracranial abnormality is seen. peripheral neuropathy- ///neurontin hx Atypical chest pain: Acquired hypothyroidism: recent thyroidectomy r/t multinodular goiter. dm1, insulin GERD CKD multdrug allergies including contrast PT eval recent echo normal. also had tilt table normal NORMOCYTIC ANEMIA Elevated esr Plan: appreciate subspecialty recs FEDERICO pending dvt ppx PT/OT full code Comment Review of Relevant I have reviewed the following items zurdo (where applicable) has been applied. NIMESH LANIER III DO Apr 02, 2019 11:14
--- NOTE | 2019-04-02 11:55 | NUR ---
Blood sugar 113, no insulin per emar instruction, see emar. Patient verb. understanding POC.
[2019-04-02 11:59] VITALS: BP 146/90
[2019-04-02] MEDS: ACETAMINOPHEN 325 MG TABLET. PO PRN ×2 (14:14→20:34)
--- NOTE | 2019-04-02 14:35 | PDOC ---
PROGRESS NOTES Assessment Assessment Worsening of chronic migraine headaches. Nausea. HTN. HLD. COPD. RECOMMENDATIONS/PLAN: HCT performed and ICH and SAH ruled out. Pain control. She discontinued Topamax. Continue Metoprolol 25 mg daily. Repeat ESR lab. on 04/02/19, result pending. Brain MRI on 06/09/18 was a negative study. HISTORY OF THE PRESENT ILLNESS: This is a 58-year-old female patient with history of chronic headaches for many years. Her headaches were not frequent in the past, but has headaches and nausea this time to come to the ER of [facility]. Patient rated her headache 10 over 10 at her previous visit and stated her pain dropped to 3/10 and felt comfortable to go ho me but while she was in the waiting area for her ride she complaining of nausea without vomiting and her headaches increasing to 6/10. No symptoms of MS changes, projectile vomiting, decreased vision, blurred vision, diplopia, ataxia, focalized sensory or motor deficits. 04/02/19: Discontinued Topamax due to side mental effects. She stating headaches are better. Hold plan of temporal A biopsy to help evaluate temporal arteritis. Repeat ESR. Past Medical History Diabetes-Type I, High Cholesterol, Hypothyroid, Hypotension, Stroke? NEUROPATHY, ORTHOSTATIC HYPOTENSION. Cardiovascular: Hyperlipidemia. Pulmonary: COPD CENTRAL NERVOUS SYSTEM: CVA, Periperal neuropathy GI: No pertinent hx Heme/Onc: No pertinent hx Hepatobiliary: No pertinent hx Psych: No pertinent hx Musculoskeletal: Osteoarthritis Rheumatologic: No pertinent hx Infectious disease: Other Renal/: No pertinent hx Endocrine: Diabetes, Hyperthyroidism Past Surgical History L BREAST L FOOT R KNEE Family History Diabetes, High Cholesterol, Hypertension Allergies Coded Allergies: atorvastatin (Verified Allergy, Severe, throat swells, 10/13/18) ciprofloxacin (Verified Allergy, Severe, "THROAT CLOSES UP" ANAPHYLAXIS, 10/13/18) hydroxyzine (Verified Allergy, Severe, DIZZINESS, "I FEEL LIKE IM DRUNK", 10/13/18) lidocaine (Verified Allergy, Severe, THROAT SWELLING, 02/28/19) raspberry (Verified Allergy, Severe, CHOKING SENSATION IN THROAT, 10/13/18) tramadol (Verified Allergy, Severe, VOMITING, 10/13/18) amoxicillin (Verified Allergy, Intermediate, 10/13/18) aspirin (Verified Allergy, Intermediate, 10/13/18) cephalexin (Verified Allergy, Intermediate, 10/13/18) codeine (Verified Allergy, Intermediate, 10/13/18) ibuprofen (Verified Allergy, Intermediate, 10/13/18) morphine (Verified Allergy, Intermediate, 10/13/18) simvastatin (Verified Allergy, Intermediate, 10/13/18) LEGS BUCKEL, LOSE FEELING sucralose (Verified Allergy, Intermediate, 11/09/18) pregabalin (Verified Allergy, Mild, vomiting, 10/13/18) MEDICATIONS: Refer to MAR SOCIAL HISTORY: Lives at home. Denies current smoking, drinking, and illicit drug use. REVIEW OF SYSTEMS: Constitutional: No malnutrition, weight loss, cachexia. Head: No traumatic brain or head injury. Skin: No edema, or rash. Ear: No infection. Eyes: No vision loss or color blindness. Nose: No bleeding or purulent discharges. Hearing: No hearing decrease. Neck: No injury. Breast: No history of cancer, masses,or discharges. Cardiac: No WA, arrhythmia,claudication, CAD. Pulmonary: COPD. GI: No GI ulcer, GI bleeding. Urinary/genital: UTI. Endocrinologic: No cousin face, craniofacial dysmorphism, polydactyly. Skeletomuscular: No muscular atrophy, deformity. Neurological: see HP. Psychiatric: Denies drug use/abuse. Otherwise, not [id number] review of systems. PHYSICAL EXAMINATION: General appearance is in subacute distress. HEENT: Normocephalic and nontraumatic. Eyes, nose, ears, and throat are unremarkable. Neck is supple. No lymphadenopathy. No bruits are heard over the carotid artery. No crepitus. Cardiovascular: S1, S2, regular rate and rhythm. Pulmonary: Clear to auscultation bilaterally. Abdomen: Bowel sounds are positive. Abdomen is soft, nontender, and nondistended. Extremities: No rash, lesions, or edema. No restriction of range of motion NEUROLOGICAL EXAMINATION: Alert Oriented to time, place and person. PERRL. EOMI. CN: no focal findings. Muscle tone: within normal. Muscle strength: 5 DTR: 2 Plantar reflex: Flexor response bilaterally Gait: At baseline normal. Sensory exam: no abnormal findings. No cerebellar signs elicited. F-T-N test accurate. Objective Objective Vital Signs Date Time Temp Pulse Resp B/P (MAP) Pulse Ox O2 Delivery O2 Flow Rate FiO2 04/02/19 12:59 89 146/90 04/02/19 11:59 97.8 18 98 Room Air 97.8 Intake and Output 04/02/19 07:00 Intake Total 250 ml Balance 250 ml IV Total 250 ml # Voids 5 Vitals Signs Vitals VS - Last 72 Hours, by Label Date Time Temp Pulse Resp B/P (MAP) Pulse Ox O2 Delivery O2 Flow Rate FiO2 04/02/19 12:59 89 146/90 04/02/19 11:59 97.8 89 18 146/90 (108) 98 Room Air 97.8 04/02/19 08:35 85 113/71 04/02/19 08:00 Room Air 04/02/19 07:19 98.1 85 18 113/71 (85) 92 Room Air 98.1 04/02/19 07:00 87 156/91 04/02/19 03:05 97.5 87 20 156/91 (112) 96 Room Air 97.5 04/01/19 23:00 97.6 90 20 159/91 (113) 96 Room Air 97.6 04/01/19 20:03 Room Air 04/01/19 19:00 97.9 90 20 155/85 (108) 97 Room Air 97.9 04/01/19 17:27 91 136/85 04/01/19 15:59 98.4 91 20 136/85 (102) 97 Room Air 98.4 04/01/19 12:35 92 161/87 04/01/19 11:22 97.4 92 20 161/87 (111) 96 Room Air 97.4 04/01/19 08:50 89 165/91 04/01/19 08:00 Room Air 04/01/19 07:10 98.0 89 20 165/91 (115) 97 Room Air 98.0 04/01/19 07:00 89 165/91 Laboratory Laboratory Laboratory Tests Test 04/01/19 17:02 04/01/19 21:04 04/02/19 02:03 04/02/19 07:15 Glucose (Fingerstick) 158 mg/dL (70-99) 170 mg/dL (70-99) 125 mg/dL (70-99) 110 mg/dL (70-99) Test 04/02/19 11:46 Glucose (Fingerstick) 113 mg/dL (70-99) Comment Review of Relevant I have reviewed the following items zurdo (where applicable) has been applied. HARDY SHEPARD MD Apr 02, 2019 14:35
[2019-04-02 15:59] VITALS: BP 145/76
[2019-04-02] MEDS ORDERED: LORazepam 1 MG TABLET PO PRN (17:45)
--- NOTE | 2019-04-02 17:48 | PDOC ---
PROGRESS NOTES Assessment Assessment Worsening of chronic migraine headaches. Blurred vision, intermittent. Nausea. HTN. HLD. COPD. RECOMMENDATIONS/PLAN: HCT performed and ICH and SAH ruled out. Pain control. She discontinued Topamax. Continue Metoprolol 25 mg daily. Brain MRI/MRA, but patient required anesthesia that is not available in weekend. Ativan 2 mg PO before MRI/MRA. No contrast due to allergy. Discussed with patient several time about temporal A biopsy and discussed with her again after obtaining repeated ESR results but she refused biopsy stating her and daughter did not want her to have biopsy. Brain MRI on 06/09/18 was a negative study. HISTORY OF THE PRESENT ILLNESS: This is a 58-year-old female patient with history of chronic headaches for many years. Her headaches were not frequent in the past, but has headaches and nausea this time to come to the ER of [facility]. Patient rated her headache 10 over 10 at her previous visit and stated her pain dropped to 3/10 and felt comfortable to go home but while she was in the waiting area for her ride she complaining of nausea without vomiting and her headaches increasing to 6/10. No symptoms of MS changes, projectile vomiting, decreased vision, blurred vision, diplopia, ataxia, focalized sensory or motor deficits. 04/02/19: Discontinued Topamax due to side mental effects. She stating headaches are better. Hold plan of temporal A biopsy to help evaluate temporal arteritis. Repeat ESR. Past Medical History Diabetes-Type I, High Cholesterol, Hypothyroid, Hypotension, Stroke? NEUROPATHY, ORTHOSTATIC HYPOTENSION. Cardiovascular: Hyperlipidemia. Pulmonary: COPD CENTRAL NERVOUS SYSTEM: CVA, Periperal neuropathy GI: No pertinent hx Heme/Onc: No pertinent hx Hepatobiliary: No pertinent hx Psych: No pertinent hx Musculoskeletal: Osteoarthritis Rheumatologic: No pertinent hx Infectious disease: Other Renal/: No pertinent hx Endocrine: Diabetes, Hyperthyroidism Past Surgical History L BREAST L FOOT R KNEE Family History Diabetes, High Cholesterol, Hypertension Allergies Coded Allergies: atorvastatin (Verified Allergy, Severe, throat swells, 10/13/18) ciprofloxacin (Verified Allergy, Severe, "THROAT CLOSES UP" ANAPHYLAXIS, 10/13/18) hydroxyzine (Verified Allergy, Severe, DIZZINESS, "I FEEL LIKE IM DRUNK", 10/13/18) lidocaine (Verified Allergy, Severe, THROAT SWELLING, 02/28/19) raspberry (Verified Allergy, Severe, CHOKING SENSATION IN THROAT, 10/13/18) tramadol (Verified Allergy, Severe, VOMITING, 10/13/18) amoxicillin (Verified Allergy, Intermediate, 10/13/18) aspirin (Verified Allergy, Intermediate, 10/13/18) cephalexin (Verified Allergy, Intermediate, 10/13/18) codeine (Verified Allergy, Intermediate, 10/13/18) ibuprofen (Verified Allergy, Intermediate, 10/13/18) morphine (Verified Allergy, Intermediate, 10/13/18) simvastatin (Verified Allergy, Intermediate, 10/13/18) LEGS BUCKEL, LOSE FEELING sucralose (Verified Allergy, Intermediate, 11/09/18) pregabalin (Verified Allergy, Mild, vomiting, 10/13/18) MEDICATIONS: Refer to MAR SOCIAL HISTORY: Lives at home. Denies current smoking, drinking, and illicit drug use. REVIEW OF SYSTEMS: Constitutional: No malnutrition, weight loss, cachexia. Head: No traumatic brain or head injury. Skin: No edema, or rash. Ear: No infection. Eyes: No vision loss or color blindness. Nose: No bleeding or purulent discharges. Hearing: No hearing decrease. Neck: No injury. Breast: No history of cancer, masses,or discharges. Cardiac: No NM, arrhythmia,claudication, CAD. Pulmonary: COPD. GI: No GI ulcer, GI bleeding. Urinary/genital: UTI. Endocrinologic: No cousin face, craniofacial dysmorphism, polydactyly. Skeletomuscular: No muscular atrophy, deformity. Neurological: see HP. Psychiatric: Denies drug use/abuse. Otherwise, not [id number] review of systems. PHYSICAL EXAMINATION: General appearance is in subacute distress. HEENT: Normocephalic and nontraumatic. Eyes, nose, ears, and throat are unremarkable. Neck is supple. No lymphadenopathy. No bruits are heard over the carotid artery. No crepitus. Cardiovascular: S1, S2, regular rate and rhythm. Pulmonary: Clear to auscultation bilaterally. Abdomen: Bowel sounds are positive. Abdomen is soft, nontender, and nondiste nded. Extremities: No rash, lesions, or edema. No restriction of range of motion NEUROLOGICAL EXAMINATION: Alert Oriented to time, place and person. PERRL. EOMI. CN: no focal findings. Muscle tone: within normal. Muscle strength: 5 DTR: 2 Plantar reflex: Flexor response bilaterally Gait: At baseline normal. Sensory exam: no abnormal findings. No cerebellar signs elicited. F-T-N test accurate. Objective Objective Vital Signs Date Time Temp Pulse Resp B/P (MAP) Pulse Ox O2 Delivery O2 Flow Rate FiO2 04/02/19 17:15 89 146/90 04/02/19 11:59 97.8 18 98 Room Air 97.8 Intake and Output 04/02/19 07:00 Intake Total 250 ml Balance 250 ml IV Total 250 ml # Voids 5 Vitals Signs Vitals VS - Last 72 Hours, by Label Date Time Temp Pulse Resp B/P (MAP) Pulse Ox O2 Delivery O2 Flow Rate FiO2 04/02/19 17:15 89 146/90 04/02/19 12:59 89 146/90 04/02/19 11:59 97.8 89 18 146/90 (108) 98 Room Air 97.8 04/02/19 08:35 85 113/71 04/02/19 08:00 Room Air 04/02/19 07:19 98.1 85 18 113/71 (85) 92 Room Air 98.1 04/02/19 07:00 87 156/91 04/02/19 03:05 97.5 87 20 156/91 (112) 96 Room Air 97.5 04/01/19 23:00 97.6 90 20 159/91 (113) 96 Room Air 97.6 04/01/19 20:03 Room Air 04/01/19 19:00 97.9 90 20 155/85 (108) 97 Room Air 97.9 04/01/19 17:27 91 136/85 04/01/19 15:59 98.4 91 20 136/85 (102) 97 Room Air 98.4 04/01/19 12:35 92 161/87 04/01/19 11:22 97.4 92 20 161/87 (111) 96 Room Air 97.4 04/01/19 08:50 89 165/91 04/01/19 08:00 Room Air 04/01/19 07:10 98.0 89 20 165/91 (115) 97 Room Air 98.0 04/01/19 07:00 89 165/91 Laboratory Laboratory Laboratory Tests Test 04/01/19 21:04 04/02/19 02:03 04/02/19 07:15 04/02/19 11:46 Glucose (Fingerstick) 170 mg/dL (70-99) 125 mg/dL (70-99) 110 mg/dL (70-99) 113 mg/dL (70-99) Test 04/02/19 13:50 04/02/19 16:45 Erythrocyte Sedimentation Rate 64 (0-25) Glucose (Fingerstick) 141 mg/dL (70-99) Medication Medications Current Medications Lorazepam (Ativan) 2 mg ONCE PRN PO ANXIETY / AGITATION; Start 04/02/19 at 17 :45 Comment Review of Relevant I have reviewed the following items zurdo (where applicable) has been applied. HARDY SHEPARD MD Apr 02, 2019 17:47
[2019-04-02 19:00] VITALS: BP 138/77
[2019-04-02] MEDS: LEVOTHYROXINE 100 MCG TABLET PO SCH (20:34)
[2019-04-02] MEDS: GABAPENTIN 300 MG CAPSULE. PO SCH (20:34)
[2019-04-02] MEDS: AMITRIPTYLINE HCL 25 MG TABLET. PO SCH (20:35)
[2019-04-02 23:00] VITALS: BP 152/84
[2019-04-03 03:11] VITALS: BP 96/54
[2019-04-03] MEDS: MIDODRINE 5 MG TABLET PO SCH ×3 (06:40→17:08)
[2019-04-03] MEDS: METOPROLOL SUCC 24HR ER 25 MG TAB.ER.24H. PO SCH (07:54)
[2019-04-03] MEDS: [UNRECOGNIZED DRUG - OTHER] SQ SCH (07:54)
[2019-04-03] MEDS: INSULIN GLARGINE SQ SCH (07:54)
[2019-04-03 08:00] VITALS: BP 102/58
--- NOTE | 2019-04-03 08:33 | NUR ---
SW following pt. Per rehab screen, pt does not have skilled needs. No SW needs identified at this time. Will be available as needed.
[2019-04-03] MEDS: FLUDROCORTISONE 0.1 MG TABLET PO SCH (08:34)
[2019-04-03] MEDS: HYDROcodone/APAP 5/325MG 1 TAB TABLET PO PRN ×3 (08:34→23:46)
[2019-04-03] MEDS: ENOXAPARIN 40 MG/0.4 ML SYRINGE. SQ SCH (08:35)
[2019-04-03] MEDS ORDERED: FLU VAX QS 2019-20 (36MOS+)/PF 0.5 ML SYRINGE. VAX IM ONE (09:30)
--- NOTE | 2019-04-03 10:44 | PDOC ---
[facility] PROGRESS NOTE Chief Complaint Chief Complaint Accelerated hypertension Orthostatic hypotension Headache, intractable , worse 03/31 Peripheral neuropathy Atypical chest pain Acquired hypothyroidism due to thyroidectomy TIDM GERD CKD History of Present Illness History of Present Illness 04/03/19 Pt seen and examined Pt reports having abd pain and double vision again Pt reports her headache is the same as yesterday SANTA RN Reviewed chart 04/02/19 Pt seen and examined by me Reports resolution of double vision States that headache is about the same as yesterday SANTA RN Chart reviewed 04/01/19 Pt seen and examined by me SANTA RN Chart reviewed Vitals/I&O Vitals/I&O: Vital Signs Date Time Temp Pulse Resp B/P (MAP) Pulse Ox O2 Delivery O2 Flow Rate FiO2 04/03/19 08:34 96 Room Air 04/03/19 08:00 98.0 72 18 102/58 (73) 98.0 I & O 04/02/19 04/02/19 04/03/19 15:00 23:00 07:00 Intake Total 360 ml 240 ml Output Total 0 ml Balance 360 ml 240 ml 0 ml Physical Exam Physical Exam: Neuro: PERRLA, EOMI, strength 5/5 in all extremities General: Alert, Oriented X3, Cooperative Heart: Regular rate, Normal S1, Normal S2 Lungs: Clear Abdomen: Normal bowel sounds, Soft Extremities: No clubbing, No cyanosis Skin: No rashes, No breakdown Labs Labs: Laboratory Tests Test 04/02/19 11:46 04/02/19 13:50 04/02/19 16:45 04/02/19 21:05 Glucose (Fingerstick) 113 mg/dL (70-99) 141 mg/dL (70-99) 235 mg/dL (70-99) Erythrocyte Sedimentation Rate 64 (0-25) Test 04/03/19 07:27 04/03/19 07:53 Glucose (Fingerstick) 67 mg/dL (70-99) 82 mg/dL (70-99) Review of Systems Review of Systems: Pt denies cough Pt denies SOB Pt denies chest pain Assessment and Plan Assessmemt and Plan Problems Medical Problems: (1) Elevated blood pressure reading without diagnosis of hypertension Status: Acute (2) Migraine headache Status: Acute (3) Nausea Status: Acute Assessment Accelerated hypertension Orthostatic hypotension Headache, intractable , worse 03/31 Peripheral neuropathy Atypical chest pain Acquired hypothyroidism due to thyroidectomy TIDM GERD CKD Plan: MRI of head pending PRN pain meds Home meds Labs DVT prophylaxis PT/OT Full code Appreciate subspecialist input Per GI: awaiting results of FEDERICO due to pt's family history of SLE Comment Review of Relevant I have reviewed the following items zurdo (where applicable) has been applied. Medications: Current Medications Medications (Trade) Dose Ordered Sig/[place] Route PRN Reason Start Time Stop Time Status Last Admin Dose Admin Acetaminophen/ Hydrocodone Bitart (Lortab 5/325) 1 tab PRN Q6HRS PRN PO MODERATE PAIN 4-6 04/02/19 23:15 04/03/19 08:34 NIMESH LANIER III DO Apr 03, 2019 10:44
[2019-04-03 10:59] VITALS: BP 154/88
--- NOTE | 2019-04-03 12:07 | PDOC ---
PROGRESS NOTES Assessment Problems Medical Problems: (1) Elevated blood pressure reading without diagnosis of hypertension Status: Acute (2) Migraine headache Status: Acute (3) Nausea Status: Acute Worsening of chronic migraine headaches. Blurred vision, intermittent. Nausea. HTN. HLD. COPD. Chronic chest wall pain Note I saw her in October 2017 for headaches and dizziness, negative brain MRI, she was also here in May for headaches and dizziness, negative brain MRI. She says that I started her on a medication which did not work, and Dr. Mahajan has topiramatet which cause blurred vision, which persists despite its discontinuation Plan Trial of DHE, discussed side effects Topamax stopped Continue Metoprolol 25 mg daily. Await brain MRI/MRA Patient refuses temporal artery biopsy, and understands risks Subjective Headache is 7/10 Objective Vital Signs Date Time Temp Pulse Resp B/P (MAP) Pulse Ox O2 Delivery O2 Flow Rate FiO2 04/03/19 10:59 98.1 90 18 154/88 (110) 96 Room Air 98.1 Intake and Output 04/03/19 07:00 Intake Total 600 ml Output Total 0 ml Balance 600 ml Intake Oral 600 ml Output Urine Total 0 ml PHYSICAL EXAM Alert. Oriented to time, place and person. PERRL. EOMI. CN: no focal findings. Muscle tone: normal. Muscle strength: 5/5 DTR: 2+ Plantar reflex: flexor Gait: not examined in bed. Sensory exam: no abnormal findings. No cerebellar signs elicited. Temporal arteries are pulsatile and nontender Review of Relevant I have reviewed the following items zurdo (where applicable) has been applied. Labs Laboratory Tests Test 04/01/19 13:55 04/01/19 17:02 04/01/19 21:04 04/02/19 02:03 Red Blood Count 3.45 x10^6/uL (3.50-5.70) Absolute Reticulocyte Count 0.055 x10^6/uL (0.020-0.120) Percent Reticulocyte Count 1.6 % (0.5-2.3) Immature Reticulocyte Fraction 0.43 (0.20-0.60) Iron Level 24 ug/dL (50-170) Total Iron Binding Capacity 243 ug/dL (250-450) Iron Saturation 10 % (15-34) Vitamin B12 Level 345 pg/mL (247-911) Glucose (Fingerstick) 158 mg/dL (70-99) 170 mg/dL (70-99) 125 mg/dL (70-99) Test 04/02/19 07:15 04/02/19 11:46 04/02/19 13:50 04/02/19 16:45 Glucose (Fingerstick) 110 mg/dL (70-99) 113 mg/dL (70-99) 141 mg/dL (70-99) Erythrocyte Sedimentation Rate 64 (0-25) Test 04/02/19 21:05 04/03/19 07:27 04/03/19 07:53 04/03/19 11:32 Glucose (Fingerstick) 235 mg/dL (70-99) 67 mg/dL (70-99) 82 mg/dL (70-99) 129 mg/dL (70-99) Laboratory Tests Test 04/02/19 13:50 04/02/19 16:45 04/02/19 21:05 04/03/19 07:27 Erythrocyte Sedimentation Rate 64 (0-25) Glucose (Fingerstick) 141 mg/dL (70-99) 235 mg/dL (70-99) 67 mg/dL (70-99) Test 04/03/19 07:53 04/03/19 11:32 Glucose (Fingerstick) 82 mg/dL (70-99) 129 mg/dL (70-99) Medications Current Medications Prochlorperazine Edisylate (Compazine) 10 mg 1X ONCE IM Last administered on 03/29/19at 17:42; Start 03/29/19 at 17:30; Stop 03/29/19 at 17:31; Status DC Fentanyl Citrate (Fentanyl 2ml Vial) 50 mcg 1X ONCE IM Last administered on 03/29/19at 17:42; Start 03/29/19 at 17:30; Stop 03/29/19 at 17:31; Status DC Ondansetron HCl (Zofran) 4 mg PRN Q8HRS PRN IV NAUSEA/VOMITING; Start 03/29/19 at 18:15; Stop 03/29/19 at 18:56; Status DC Fentanyl Citrate (Fentanyl 2ml Vial) 50 mcg Q2HR PRN IV PAIN Last administered on 03/29/19at 20:55; Start 03/29/19 at 18:15; Stop 03/29/19 at 22:00; Status DC Amitriptyline HCl (Elavil) 50 mg QHS PO Last administered on 04/02/19at 20:35; Start 03/29/19 at 21:00 Cetirizine HCl (ZyrTEC) 10 mg PRN DAILY PRN PO ALLERGIES/congestion Last administered on 04/01/19at 08:49; Start 03/29/19 at 18:15 Fludrocortisone Acetate (Florinef) 0.1 mg DAILY PO Last administered on 04/03/19at 08:34; Start 03/30/19 at 09:00 Gabapentin (Neurontin) 600 mg HS PO Last administered on 04/02/19at 20:34; Start 03/29/19 at 21:00 Levothyroxine Sodium (Synthroid) 100 mcg HS PO ; Start 03/29/19 at 21:00; Stop 03/29/19 at 20:41; Status DC Sodium Chloride (Saline Mist Nasal) 1 jacques PRN Q1HR PRN NS NASAL CONGESTION; Start 03/29/19 at 18:15 Non-Formulary Medication (Insulin Aspart (Novolog Flexpen)) 1 unit TIDAC SQ ; Start 03/30/19 at 07:30; Status UNV Insulin Glargine (Lantus Syringe) 30 unit DAILY08 SQ ; Start 03/30/19 at 08:00; Stop 03/30/19 at 10:01; Status DC Non-Formulary Medication (Lovastatin ) 10 mg HS PO ; Start 03/29/19 at 21:00; Stop 04/02/19 at 09:32; Status DC Midodrine (Proamatine) 10 mg COU851 PO ; Start 03/30/19 at 07:00 Ondansetron HCl (Zofran Odt) 4 mg PRN Q8HRS PRN PO NAUSEA/VOMITING 1ST CHOICE; Start 03/29/19 at 18:30 Sodium Chloride (Normal Saline Flush) 3 ml QSHIFT PRN IV AFTER MEDS AND BLOOD DRAWS; Start 03/29/19 at 18:45 Sodium Chloride 1,000 ml @ 100 mls/hr Q10H IV Last administered on 04/01/19at 03:03; Start 03/29/19 at 18:45; Stop 04/02/19 at 12:58; Status DC Ondansetron HCl (Zofran) 4 mg PRN Q4HRS PRN IV NAUSEA/VOMITING; Start 03/29/19 at 18:45 Zolpidem Tartrate (Ambien) 5 mg PRN QHS PRN PO INSOMNIA; Start 03/29/19 at 18:45 Acetaminophen (Tylenol) 650 mg PRN Q4HRS PRN PO TEMP OVER 100.4F OR MILD PAIN Last administered on 04/02/19at 20:34; Start 03/29/19 at 18:45 Al Hydroxide/Mg Hydroxide (Mylanta Plus Xs) 30 ml PRN DAILY PRN PO HEARTBURN / GAS; Start 03/29/19 at 18:45 Clonidine HCl (Catapres) 0.1 mg PRN Q6HRS PRN PO SBP>160 OR DBP>90; Start 03/29/19 at 18:45 Docusate Sodium (Colace) 100 mg PRN BID PRN PO CONSTIPATION; Start 03/29/19 at 18:45 Albuterol Sulfate (Ventolin Neb Soln) 2.5 mg PRN Q4HRS PRN NEB SHORTNESS OF BREATH; Start 03/29/19 at 18:45 Lorazepam (Ativan) 0.5 mg PRN Q4HRS PRN PO ANXIETY / AGITATION; Start 03/29/19 at 18:45 Lorazepam (Ativan Inj) 2 mg PRN Q4HRS PRN IV ANXIETY / AGITATION; Start 03/29/19 at 18:45 Enoxaparin Sodium (Lovenox 40mg Syringe) 40 mg DAILY SQ Last administered on 04/03/19at 08:35; Start 03/30/19 at 09:00 Hydralazine HCl (Apresoline Inj) 10 mg PRN Q4HRS PRN IVP HYPERTENSION Last administered on 03/29/19at 20:54; Start 03/29/19 at 19:00 Levothyroxine Sodium (Synthroid) 200 mcg HS PO Last administered on 04/02/19 20:34; Start 03/29/19 at 21:00 Insulin Human Lispro (HumaLOG) for blood glucose > 180, g... TIDWMEALS SQ ; Start 03/30/19 at 08:00; Stop 03/30/19 at 10:01; Status DC Dextrose (Dextrose 50%-Water Syringe) 12.5 gm PRN Q15MIN PRN IV SEE COMMENTS; Start 03/29/19 at 23:00 Non-Formulary Medication 1 ea TIDAC SQ Last administered on 04/01/19at 12:05; Start 03/30/19 at 11:30 Non-Formulary Medication 1 ea DAILY SQ Last administered on 04/02/19at 08:29; Start 03/31/19 at 09:00 Metoprolol Succinate (Toprol Xl) 25 mg 1X ONCE PO Last administered on 03/30/19at 12:24; Start 03/30/19 at 12:00; Stop 03/30/19 at 12:05; Status DC Metoprolol Succinate (Toprol Xl) 25 mg DAILY PO Last administered on 04/01/19at 08:50; Start 03/31/19 at 09:00 Topiramate (Topamax) 25 mg BID PO Last administered on 04/01/19at 08:49; Start 03/30/19 at 21:00; Stop 04/02/19 at 17:24; Status DC Lorazepam (Ativan) 2 mg ONCE PRN PO ANXIETY / AGITATION; Start 04/02/19 at 17:45 Acetaminophen/ Hydrocodone Bitart (Lortab 5/325) 1 tab PRN Q6HRS PRN PO MODERATE PAIN 4-6 Last administered on 04/03/19at 08:34; Start 04/02/19 at 23:15 Influenza Virus Vaccine Quadrival (Afluria Quad 2019-20 (3yr Up) Syringe) 0.5 ml ONCE ONCE VAX IM ; Start 04/03/19 at 09:30; Stop 04/03/19 at 09:31; Status DC Dihydroergotamine Mesylate 1 mg/ Sodium Chloride 51 ml @ 102 mls/hr 1X ONCE IV ; Start 04/03/19 at 12:30; Stop 04/03/19 at 12:59 Metoclopramide HCl (Reglan) 10 mg 1X ONCE PO ; Start 04/03/19 at 12:20; Stop 04/03/19 at 12:21 Active Scripts Active Zofran (Ondansetron Hcl) 4 Mg Tablet 1 Tab PO PRN Q6-8HRS Doxycycline Hyclate 100 Mg Tablet 1 Tab PO BID [place] (Sodium Chloride) 44 Ml [place] 1 Jacques NS PRN Q1HR PRN 28 Days Cetirizine Hcl 10 Mg Tablet 10 Mg PO PRN DAILY PRN 10 Days Fludrocortisone Acetate 0.1 Mg Tablet 0.1 Mg PO DAILY 30 Days Amitriptyline Hcl 25 Mg Tablet 50 Mg PO QHS 30 Days Reported Levothyroxine Sodium 100 Mcg Tablet 200 Mcg PO HS Novolog Flexpen (Insulin Aspart) 100 Unit/1 Ml Insuln.pen 1 Unit SQ TIDAC PER SLIDING SCALE Midodrine Hcl 10 Mg Tablet 10 Mg PO TID Basaglar Kwikpen U-100 (Insulin Glargine,Hum.rec.anlog) 100 Unit/1 Ml Insuln.pen 30 Unit SQ DAILY08 Lovastatin 10 Mg Tablet 10 Mg PO HS Gabapentin (Gabapentin) 300 Mg Capsule 600 Mg PO HS Vitals/I & O Vital Sign - Last 24 Hours 04/02/19 04/02/19 04/02/19 04/02/19 12:59 15:59 17:15 19:00 Temp 98.3 97.6 98.3 97.6 Pulse 89 96 89 98 Resp 18 20 B/P (MAP) 146/90 145/76 (99) 146/90 138/77 (97) Pulse Ox 96 96 O2 Delivery Room Air Room Air 04/02/19 04/02/19 04/03/19 04/03/19 20:04 23:00 03:11 08:00 Temp 98.2 98.5 98.0 98.2 98.5 98.0 Pulse 96 71 72 Resp 20 18 18 B/P (MAP) 152/84 (106) 96/54 (68) 102/58 (73) Pulse Ox 97 96 96 O2 Delivery Room Air Room Air Room Air Room Air 04/03/19 04/03/19 08:34 10:59 Temp 98.1 98.1 Pulse 90 Resp 18 B/P (MAP) 154/88 (110) Pulse Ox 96 96 O2 Delivery Room Air Room Air Intake and Output 04/02/19 04/02/19 04/03/19 15:00 23:00 07:00 Intake Total 360 ml 240 ml Output Total 0 ml Balance 360 ml 240 ml 0 ml LANA ARAYA MD Apr 03, 2019 12:07
[2019-04-03] MEDS ORDERED: METOCLOPRAMIDE 10 MG TABLET. PO ONE (12:20)
[2019-04-03] MEDS ORDERED: DIHYDROERGOTAMINE 1 MG in IV NORMAL SALINE 50ML 50 ML IV ONE (12:30)
[2019-04-03 14:58] VITALS: BP 144/78
--- NOTE | 2019-04-03 15:03 | PDOC ---
G I PROGRESS NOTE Subjective Sleeping with lights out; did not awaken. Objective Others' notes reviewed. Physical Exam No PE. Review of Relevant I have reviewed the following items zurdo (where applicable) has been applied. Labs Laboratory Tests Test 04/01/19 17:02 04/01/19 21:04 04/02/19 02:03 04/02/19 07:15 Glucose (Fingerstick) 158 mg/dL (70-99) 170 mg/dL (70-99) 125 mg/dL (70-99) 110 mg/dL (70-99) Test 04/02/19 11:46 04/02/19 13:50 04/02/19 16:45 04/02/19 21:05 Glucose (Fingerstick) 113 mg/dL (70-99) 141 mg/dL (70-99) 235 mg/dL (70-99) Erythrocyte Sedimentation Rate 64 (0-25) Test 04/03/19 07:27 04/03/19 07:53 04/03/19 11:32 Glucose (Fingerstick) 67 mg/dL (70-99) 82 mg/dL (70-99) 129 mg/dL (70-99) Laboratory Tests Test 04/02/19 16:45 04/02/19 21:05 04/03/19 07:27 04/03/19 07:53 Glucose (Fingerstick) 141 mg/dL (70-99) 235 mg/dL (70-99) 67 mg/dL (70-99) 82 mg/dL (70-99) Test 04/03/19 11:32 Glucose (Fingerstick) 129 mg/dL (70-99) Part of elevated ESR may be her anemia. Vitals/I & O Vital Sign - Last 24 Hours 04/02/19 04/02/19 04/02/19 04/02/19 15:59 17:15 19:00 20:04 Temp 98.3 97.6 98.3 97.6 Pulse 96 89 98 Resp 18 20 B/P (MAP) 145/76 (99) 146/90 138/77 (97) Pulse Ox 96 96 O2 Delivery Room Air Room Air Room Air 04/02/19 04/03/19 04/03/19 04/03/19 23:00 03:11 08:00 08:34 Temp 98.2 98.5 98.0 98.2 98.5 98.0 Pulse 96 71 72 Resp 20 18 18 B/P (MAP) 152/84 (106) 96/54 (68) 102/58 (73) Pulse Ox 97 96 96 96 O2 Delivery Room Air Room Air Room Air Room Air 04/03/19 04/03/19 10:59 14:58 Temp 98.1 98.1 98.1 98.1 Pulse 90 79 Resp 18 18 B/P (MAP) 154/88 (110) 144/78 (100) Pulse Ox 96 97 O2 Delivery Room Air Room Air Intake and Output 04/02/19 04/02/19 04/03/19 15:00 23:00 07:00 Intake Total 360 ml 240 ml Output Total 0 ml Balance 360 ml 240 ml 0 ml Problem List Problems Medical Problems: (1) Elevated blood pressure reading without diagnosis of hypertension Status: Acute (2) Migraine headache Status: Acute (3) Nausea Status: Acute Assessment IGLESIA superimposed on ACD by iron studies. Plan of Care Note Should consider veliz-endoscopy. Will attempt to discuss further at some point. FRANTZ SAMPSON MD Apr 03, 2019 15:03
[2019-04-03] MEDS: ONDANSETRON ODT 4 MG TAB.RAPDIS. PO PRN (17:28)
--- NOTE | 2019-04-03 18:29 | NUR ---
Patient had complaints of right sided chest pain, patient stated that she has had this pain for the last year and half. Questioned the patient if she let the MD known this stay, patient stated no. MD Prakash notified. New orders received for a Lidoderm patch, patient has multi allergies with lidocaine being one. Will continue to monitor.
[2019-04-03 19:00] VITALS: BP 166/101
[2019-04-03 20:08] LABS: ANA INTERP Negative (.)
[2019-04-03] MEDS: AMITRIPTYLINE HCL 25 MG TABLET. PO SCH (20:47)
[2019-04-03] MEDS: GABAPENTIN 300 MG CAPSULE. PO SCH (20:48)
[2019-04-03] MEDS: LEVOTHYROXINE 100 MCG TABLET PO SCH (20:48)
[2019-04-03 23:00] VITALS: BP 157/97
[2019-04-04] VITALS (12 sets, daily range): BP systolic 122–175; BP diastolic 78–175
[2019-04-04 05:02] LABS: BASO % 1 % (0-3); EOS # 0.2 x10^3/uL (0.0-0.7); EOS % 4 % (0-3); HEMATOCRIT 31.1 % (36.0-47.0); HEMOGLOBIN 10.2 g/dL (12.0-15.5); LYMPH # 1.5 x10^3/uL (1.0-4.8); LYMPH % 29 % (24-48); MEAN CORPUSCULAR HEMOGLOBIN 28 pg (25-35); MEAN CORPUSCULAR HGB CONC 33 g/dL (31-37); MEAN CORPUSCULAR VOLUME 84 fL (79-100); MONO # 0.5 x10^3/uL (0.0-1.1); MONO % 10 % (0-9); NEUT % 57 % (31-73); PLATELET COUNT 182 x10^3/uL (140-400); RED BLOOD COUNT 3.68 x10^6/uL (3.50-5.40); RED CELL DISTRIBUTION WIDTH 14.8 % (11.5-14.5); WHITE BLOOD COUNT 5.3 x10^3/uL (4.0-11.0)
[2019-04-04 05:20] LABS: CALCIUM 8.3 mg/dL (8.5-10.1); CREATININE 0.6 mg/dL (0.6-1.0); GFR 103.4; POTASSIUM 3.4 mmol/L (3.5-5.1)
[2019-04-04] MEDS: MIDODRINE 5 MG TABLET PO SCH ×3 (07:00→18:00)
[2019-04-04] MEDS ORDERED: IV RINGERS,LACTATED 1000ML 1,000 ML IV SCH (07:00)
[2019-04-04] MEDS ORDERED: fentaNYL PF VIAL 100 MCG/2 ML VIAL ONE (08:50)
[2019-04-04] MEDS ORDERED: MIDAZOLAM HCL/PF 2 MG/2 ML VIAL. ONE ×2 (08:51→14:04)
[2019-04-04] MEDS ORDERED: KETAMINE HCL IN NACL, ISO-OSM 50 MG/5 ML SYRINGE ONE (08:51)
[2019-04-04] MEDS ORDERED: LIDOCAINE 2% PF 5 ML VIAL. ONE (08:53)
[2019-04-04] MEDS ORDERED: PROPOFOL 20 ML IV ONE ×2 (08:53→14:04)
[2019-04-04] MEDS: INSULIN GLARGINE SQ SCH (09:00)
[2019-04-04] MEDS: ENOXAPARIN 40 MG/0.4 ML SYRINGE. SQ SCH (09:00)
[2019-04-04] MEDS: [UNRECOGNIZED DRUG - OTHER] SQ SCH (09:00)
--- NOTE | 2019-04-04 10:12 | RAD ---
ANGIOGRAPHY BRAIN WO CONTRAST, BRAIN W/O CONTRAST History: Persistent headaches. Diplopia. Technique: Multiplanar multisequence MRI of the brain and without contrast. 3-D [id number] MR angiography was performed of the brain. 3-D reconstructions were performed. Determination of any degree of stenosis is based on NASCET criteria. Comparison: CT March 29, 2019. Brain MRI April 08, 2019 and November 08, 2017 Findings: MRI brain: No acute infarct. No intracranial hemorrhage. No mass effect. No hydrocephalus. Extra-axial spaces are unremarkable. Several foci of T2/FLAIR hyperintensities within the hemispheric white matter, unchanged compared to prior. Imaged orbits are unremarkable. Imaged paranasal sinuses and mastoid air cells are clear. MRA head: Internal carotid arteries: No stenosis, occlusion or aneurysm. Middle cerebral arteries: No stenosis, occlusion or aneurysm. Anterior cerebral arteries: No stenosis, occlusion or aneurysm. Trifurcation. Posterior cerebral arteries: No stenosis, occlusion or aneurysm. Basilar artery: No stenosis, occlusion or aneurysm. Vertebral arteries: No stenosis, occlusion or aneurysm. Impression: 1. No acute intracranial abnormality. 2. No intracranial arterial stenosis or occlusion. 3. Mild nonspecific white matter changes, most often due to chronic microvascular ischemia, unchanged. Electronically signed by: Kyle Mosley DO (04/04/2019 10:08 AM) [id number]
--- NOTE | 2019-04-04 10:12 | RAD ---
ANGIOGRAPHY BRAIN WO CONTRAST, BRAIN W/O CONTRAST History: Persistent headaches. Diplopia. Technique: Multiplanar multisequence MRI of the brain and without contrast. 3-D [id number] MR angiography was performed of the brain. 3-D reconstructions were performed. Determination of any degree of stenosis is based on NASCET criteria. Comparison: CT March 29, 2019. Brain MRI April 08, 2019 and November 08, 2017 Findings: MRI brain: No acute infarct. No intracranial hemorrhage. No mass effect. No hydrocephalus. Extra-axial spaces are unremarkable. Several foci of T2/FLAIR hyperintensities within the hemispheric white matter, unchanged compared to prior. Imaged orbits are unremarkable. Imaged paranasal sinuses and mastoid air cells are clear. MRA head: Internal carotid arteries: No stenosis, occlusion or aneurysm. Middle cerebral arteries: No stenosis, occlusion or aneurysm. Anterior cerebral arteries: No stenosis, occlusion or aneurysm. Trifurcation. Posterior cerebral arteries: No stenosis, occlusion or aneurysm. Basilar artery: No stenosis, occlusion or aneurysm. Vertebral arteries: No stenosis, occlusion or aneurysm. Impression: 1. No acute intracranial abnormality. 2. No intracranial arterial stenosis or occlusion. 3. Mild nonspecific white matter changes, most often due to chronic microvascular ischemia, unchanged. Electronically signed by: Kyle Mosley DO (04/04/2019 10:08 AM) [id number]
--- NOTE | 2019-04-04 11:23 | PDOC ---
PROGRESS NOTES Assessment Problems Medical Problems: (1) Elevated blood pressure reading without diagnosis of hypertension Status: Acute (2) Migraine headache Status: Acute (3) Nausea Status: Acute Worsening of chronic migraine headaches. Blurred vision, intermittent. Nausea. HTN. HLD. COPD. Chronic chest wall pain Note I saw her in October 2017 for headaches and dizziness, negative brain MRI, she was also here in May for headaches and dizziness, negative brain MRI. She says that I started her on a medication which did not work, and Dr. Mahajan has topiramate which cause blurred vision, which persists despite its discontinuation. I tried DHE yesterday which made the headache worse Plan Topamax stopped Continue Metoprolol 25 mg daily. Await brain MRI/MRA Patient refuses temporal artery biopsy, and understands risks I discussed risk, benefits, alternatives, and she is willing to undergo a lumbar puncture. Subjective Still has 7/10 headache, appears to be in no distress. Objective Vital Signs Date Time Temp Pulse Resp B/P (MAP) Pulse Ox O2 Delivery O2 Flow Rate FiO2 04/04/19 10:30 97.9 87 17 164/95 (118) 97 Room Air 97.9 04/04/19 10:02 2 Intake and Output 04/04/19 07:00 Intake Total 1020 ml Output Total 300 ml Balance 720 ml Intake Oral 1020 ml Output Urine Total 300 ml # Voids 3 PHYSICAL EXAM Alert. Oriented to time, place and person. PERRL. EOMI. CN: no focal findings. Muscle tone: normal. Muscle strength: 5/5 DTR: 2+ Plantar reflex: flexor Gait: not examined in bed. Sensory exam: no abnormal findings. No cerebellar signs elicited. Temporal arteries are pulsatile and nontender Review of Relevant I have reviewed the following items zurdo (where applicable) has been applied. Labs Laboratory Tests Test 04/02/19 11:46 04/02/19 13:50 04/02/19 16:45 04/02/19 21:05 Glucose (Fingerstick) 113 mg/dL (70-99) 141 mg/dL (70-99) 235 mg/dL (70-99) Erythrocyte Sedimentation Rate 64 (0-25) Test 04/03/19 07:27 04/03/19 07:53 04/03/19 11:32 04/03/19 16:29 Glucose (Fingerstick) 67 mg/dL (70-99) 82 mg/dL (70-99) 129 mg/dL (70-99) 135 mg/dL (70-99) Test 04/03/19 21:24 04/04/19 03:55 04/04/19 07:28 Glucose (Fingerstick) 167 mg/dL (70-99) 112 mg/dL (70-99) White Blood Count 5.3 x10^3/uL (4.0-11.0) Red Blood Count 3.68 x10^6/uL (3.50-5.40) Hemoglobin 10.2 g/dL (12.0-15.5) Hematocrit 31.1 % (36.0-47.0) Mean Corpuscular Volume 84 fL (79-100) Mean Corpuscular Hemoglobin 28 pg (25-35) Mean Corpuscular Hemoglobin Concent 33 g/dL (31-37) Red Cell Distribution Width 14.8 % (11.5-14.5) Platelet Count 182 x10^3/uL (140-400) Neutrophils (%) (Auto) 57 % (31-73) Lymphocytes (%) (Auto) 29 % (24-48) Monocytes (%) (Auto) 10 % (0-9) Eosinophils (%) (Auto) 4 % (0-3) Basophils (%) (Auto) 1 % (0-3) Neutrophils # (Auto) 3.0 x10^3/uL (1.8-7.7) Lymphocytes # (Auto) 1.5 x10^3/uL (1.0-4.8) Monocytes # (Auto) 0.5 x10^3/uL (0.0-1.1) Eosinophils # (Auto) 0.2 x10^3/uL (0.0-0.7) Basophils # (Auto) 0.0 x10^3/uL (0.0-0.2) Sodium Level 141 mmol/L (136-145) Potassium Level 3.4 mmol/L (3.5-5.1) Chloride Level 105 mmol/L (98-107) Carbon Dioxide Level 29 mmol/L (21-32) Anion Gap 7 (6-14) Blood Urea Nitrogen 14 mg/dL (7-20) Creatinine 0.6 mg/dL (0.6-1.0) Estimated GFR (Cockcroft-Gault) 103.4 Glucose Level 154 mg/dL (70-99) Calcium Level 8.3 mg/dL (8.5-10.1) Laboratory Tests Test 04/03/19 11:32 04/03/19 16:29 04/03/19 21:24 04/04/19 03:55 Glucose (Fingerstick) 129 mg/dL (70-99) 135 mg/dL (70-99) 167 mg/dL (70-99) White Blood Count 5.3 x10^3/uL (4.0-11.0) Red Blood Count 3.68 x10^6/uL (3.50-5.40) Hemoglobin 10.2 g/dL (12.0-15.5) Hematocrit 31.1 % (36.0-47.0) Mean Corpuscular Volume 84 fL (79-100) Mean Corpuscular Hemoglobin 28 pg (25-35) Mean Corpuscular Hemoglobin Concent 33 g/dL (31-37) Red Cell Distribution Width 14.8 % (11.5-14.5) Platelet Count 182 x10^3/uL (140-400) Neutrophils (%) (Auto) 57 % (31-73) Lymphocytes (%) (Auto) 29 % (24-48) Monocytes (%) (Auto) 10 % (0-9) Eosinophils (%) (Auto) 4 % (0-3) Basophils (%) (Auto) 1 % (0-3) Neutrophils # (Auto) 3.0 x10^3/uL (1.8-7.7) Lymphocytes # (Auto) 1.5 x10^3/uL (1.0-4.8) Monocytes # (Auto) 0.5 x10^3/uL (0.0-1.1) Eosinophils # (Auto) 0.2 x10^3/uL (0.0-0.7) Basophils # (Auto) 0.0 x10^3/uL (0.0-0.2) Sodium Level 141 mmol/L (136-145) Potassium Level 3.4 mmol/L (3.5-5.1) Chloride Level 105 mmol/L (98-107) Carbon Dioxide Level 29 mmol/L (21-32) Anion Gap 7 (6-14) Blood Urea Nitrogen 14 mg/dL (7-20) Creatinine 0.6 mg/dL (0.6-1.0) Estimated GFR (Cockcroft-Gault) 103.4 Glucose Level 154 mg/dL (70-99) Calcium Level 8.3 mg/dL (8.5-10.1) Test 04/04/19 07:28 Glucose (Fingerstick) 112 mg/dL (70-99) Medications Current Medications Prochlorperazine Edisylate (Compazine) 10 mg 1X ONCE IM Last administered on 03/29/19 17:42; Start 03/29/19 at 17:30; Stop 03/29/19 at 17:31; Status DC Fentanyl Citrate (Fentanyl 2ml Vial) 50 mcg 1X ONCE IM Last administered on 03/29/19 17:42; Start 03/29/19 at 17:30; Stop 03/29/19 at 17:31; Status DC Ondansetron HCl (Zofran) 4 mg PRN Q8HRS PRN IV NAUSEA/VOMITING; Start 03/29/19 at 18:15; Stop 03/29/19 at 18:56; Status DC Fentanyl Citrate (Fentanyl 2ml Vial) 50 mcg Q2HR PRN IV PAIN Last administered on 03/29/19 20:55; Start 03/29/19 at 18:15; Stop 03/29/19 at 22:00; Status DC Amitriptyline HCl (Elavil) 50 mg QHS PO Last administered on 04/03/19 20:47; Start 03/29/19 at 21:00 Cetirizine HCl (ZyrTEC) 10 mg PRN DAILY PRN PO ALLERGIES/congestion Last administered on 04/01/19 08:49; Start 03/29/19 at 18:15 Fludrocortisone Acetate (Florinef) 0.1 mg DAILY PO Last administered on 04/03/19 08:34; Start 03/30/19 at 09:00 Gabapentin (Neurontin) 600 mg HS PO Last administered on 04/03/19 20:48; Start 03/29/19 at 21:00 Levothyroxine Sodium (Synthroid) 100 mcg HS PO ; Start 03/29/19 at 21:00; Stop 03/29/19 at 20:41; Status DC Sodium Chloride (Saline Mist Nasal) 1 jacques PRN Q1HR PRN NS NASAL CONGESTION; Start 03/29/19 at 18:15 Non-Formulary Medication (Insulin Aspart (Novolog Flexpen)) 1 unit TIDAC SQ ; Start 03/30/19 at 07:30; Status UNV Insulin Glargine (Lantus Syringe) 30 unit DAILY08 SQ ; Start 03/30/19 at 08:00; Stop 03/30/19 at 10:01; Status DC Non-Formulary Medication (Lovastatin ) 10 mg HS PO ; Start 03/29/19 at 21:00; Stop 04/02/19 at 09:32; Status DC Midodrine (Proamatine) 10 mg [id number] PO ; Start 03/30/19 at 07:00 Ondansetron HCl (Zofran Odt) 4 mg PRN Q8HRS PRN PO NAUSEA/VOMITING 1ST CHOICE Last administered on 04/03/19at 17:28; Start 03/29/19 at 18:30 Sodium Chloride (Normal Saline Flush) 3 ml QSHIFT PRN IV AFTER MEDS AND BLOOD DRAWS; Start 03/29/19 at 18:45 Sodium Chloride 1,000 ml @ 100 mls/hr Q10H IV Last administered on 04/01/19at 03:03; Start 03/29/19 at 18:45; Stop 04/02/19 at 12:58; Status DC Ondansetron HCl (Zofran) 4 mg PRN Q4HRS PRN IV NAUSEA/VOMITING; Start 03/29/19 at 18:45 Zolpidem Tartrate (Ambien) 5 mg PRN QHS PRN PO INSOMNIA; Start 03/29/19 at 18:45 Acetaminophen (Tylenol) 650 mg PRN Q4HRS PRN PO TEMP OVER 100.4F OR MILD PAIN Last administered on 04/02/19at 20:34; Start 03/29/19 at 18:45 Al Hydroxide/Mg Hydroxide (Mylanta Plus Xs) 30 ml PRN DAILY PRN PO HEARTBURN / GAS; Start 03/29/19 at 18:45 Clonidine HCl (Catapres) 0.1 mg PRN Q6HRS PRN PO SBP>160 OR DBP>90; Start 03/29/19 at 18:45 Docusate Sodium (Colace) 100 mg PRN BID PRN PO CONSTIPATION; Start 03/29/19 at 18:45 Albuterol Sulfate (Ventolin Neb Soln) 2.5 mg PRN Q4HRS PRN NEB SHORTNESS OF BREATH; Start 03/29/19 at 18:45 Lorazepam (Ativan) 0.5 mg PRN Q4HRS PRN PO ANXIETY / AGITATION; Start 03/29/19 at 18:45 Lorazepam (Ativan Inj) 2 mg PRN Q4HRS PRN IV ANXIETY / AGITATION; Start 03/29/19 at 18:45 Enoxaparin Sodium (Lovenox 40mg Syringe) 40 mg DAILY SQ Last administered on 04/03/19 08:35; Start 03/30/19 at 09:00 Hydralazine HCl (Apresoline Inj) 10 mg PRN Q4HRS PRN IVP HYPERTENSION Last administered on 03/29/19 20:54; Start 03/29/19 at 19:00 Levothyroxine Sodium (Synthroid) 200 mcg HS PO Last administered on 04/03/19 20:48; Start 03/29/19 at 21:00 Insulin Human Lispro (HumaLOG) for blood glucose > 180, g... TIDWMEALS SQ ; Start 03/30/19 at 08:00; Stop 03/30/19 at 10:01; Status DC Dextrose (Dextrose 50%-Water Syringe) 12.5 gm PRN Q15MIN PRN IV SEE COMMENTS; Start 03/29/19 at 23:00 Non-Formulary Medication 1 ea TIDAC SQ Last administered on 04/01/19 12:05; Start 03/30/19 at 11:30 Non-Formulary Medication 1 ea DAILY SQ Last administered on 04/02/19 08:29; Start 03/31/19 at 09:00 Metoprolol Succinate (Toprol Xl) 25 mg 1X ONCE PO Last administered on 03/30/19 12:24; Start 03/30/19 at 12:00; Stop 03/30/19 at 12:05; Status DC Metoprolol Succinate (Toprol Xl) 25 mg DAILY PO Last administered on 04/01/19 08:50; Start 03/31/19 at 09:00 Topiramate (Topamax) 25 mg BID PO Last administered on 12/7/19at 08:49; Start 03/30/19 at 21:00; Stop 04/02/19 at 17:24; Status DC Lorazepam (Ativan) 2 mg ONCE PRN PO ANXIETY / AGITATION; Start 04/02/19 at 17:45 Acetaminophen/ Hydrocodone Bitart (Lortab 5/325) 1 tab PRN Q6HRS PRN PO MODERATE PAIN 4-6 Last administered on 04/03/19at 23:46; Start 04/02/19 at 23:15 Influenza Virus Vaccine Quadrival (Afluria Quad 2019-20 (3yr Up) Syringe) 0.5 ml ONCE ONCE VAX IM ; Start 04/03/19 at 09:30; Stop 04/03/19 at 09:31; Status DC Dihydroergotamine Mesylate 1 mg/ Sodium Chloride 51 ml @ 102 mls/hr 1X ONCE IV Last administered on 04/03/19at 12:57; Start 04/03/19 at 12:30; Stop 04/03/19 at 12:59; Status DC Metoclopramide HCl (Reglan) 10 mg 1X ONCE PO Last administered on 04/03/19at 12:27; Start 04/03/19 at 12:20; Stop 04/03/19 at 12:21; Status DC Ringer's Solution 1,000 ml @ 50 mls/hr Q20H IV ; Start 04/04/19 at 07:00; Stop 04/04/19 at 18:59 Fentanyl Citrate (Fentanyl 2ml Vial) 100 mcg STK-MED ONCE .ROUTE ; Start 04/04/19 at 08:50; Stop 04/04/19 at 08:51; Status DC Midazolam HCl (Versed) 2 mg STK-MED ONCE .ROUTE ; Start 04/04/19 at 08:51; Stop 04/04/19 at 08:51; Status DC Ketamine HCl (Ketamine) 50 mg STK-MED ONCE .ROUTE ; Start 04/04/19 at 08:51; Stop 04/04/19 at 08:51; Status DC Propofol 20 ml @ As Directed STK-MED ONCE IV ; Start 04/04/19 at 08:53; Stop 04/04/19 at 08:53; Status DC Lidocaine HCl (Lidocaine Pf 2% Vial) 5 ml STK-MED ONCE .ROUTE ; Start 04/04/19 at 08:53; Stop 04/04/19 at 08:53; Status DC Active Scripts Active Zofran (Ondansetron Hcl) 4 Mg Tablet 1 Tab PO PRN Q6-8HRS Doxycycline Hyclate 100 Mg Tablet 1 Tab PO BID [place] Sea (Sodium Chloride) 44 Ml [place] 1 Jacques NS PRN Q1HR PRN 28 Days Cetirizine Hcl 10 Mg Tablet 10 Mg PO PRN DAILY PRN 10 Days Fludrocortisone Acetate 0.1 Mg Tablet 0.1 Mg PO DAILY 30 Days Amitriptyline Hcl 25 Mg Tablet 50 Mg PO QHS 30 Days Reported Levothyroxine Sodium 100 Mcg Tablet 200 Mcg PO HS Novolog Flexpen (Insulin Aspart) 100 Unit/1 Ml Insuln.pen 1 Unit SQ TIDAC PER SLIDING SCALE Midodrine Hcl 10 Mg Tablet 10 Mg PO TID Basaglar Kwikpen U-100 (Insulin Glargine,Hum.rec.anlog) 100 Unit/1 Ml Insuln.pen 30 Unit SQ DAILY08 Lovastatin 10 Mg Tablet 10 Mg PO HS Gabapentin (Gabapentin) 300 Mg Capsule 600 Mg PO HS Vitals/I & O Vital Sign - Last 24 Hours 04/03/19 04/03/19 04/03/19 04/03/19 14:58 17:28 19:00 20:00 Temp 98.1 98.3 98.1 98.3 Pulse 79 91 Resp 18 18 B/P (MAP) 144/78 (100) 166/101 (122) Pulse Ox 97 97 95 O2 Delivery Room Air Room Air Room Air 04/03/19 04/04/19 04/04/19 04/04/19 23:00 03:00 07:00 08:05 Temp 98.5 98.0 97.9 98.5 98.0 97.9 Pulse 90 85 86 Resp 18 16 18 B/P (MAP) 157/97 (117) 122/78 (93) 141/82 (101) Pulse Ox 94 95 97 O2 Delivery Room Air Room Air 04/04/19 04/04/19 04/04/19 04/04/19 09:47 10:02 10:15 10:30 Temp 97.7 97.7 97.7 97.9 97.7 97.7 97.7 97.9 Pulse 80 85 82 87 Resp 16 16 17 17 B/P (MAP) 110/65 148/83 152/92 164/95 (118) Pulse Ox 97 99 95 97 O2 Delivery Nasal Cannula Nasal Cannula Room Air Room Air O2 Flow Rate 2 2 Intake and Output 04/03/19 04/03/19 04/04/19 15:00 23:00 07:00 Intake Total 600 ml 300 ml 120 ml Output Total 300 ml Balance 300 ml 300 ml 120 ml LANA ARAYA MD Apr 04, 2019 11:23
--- NOTE | 2019-04-04 12:13 | PDOC ---
G I PROGRESS NOTE Subjective Awake, but still with headache and diplopia. Physical Exam Lungs clear. RRR Abdomen soft, not tender nor distended. Review of Relevant I have reviewed the following items zurdo (where applicable) has been applied. Labs Laboratory Tests Test 04/02/19 13:50 04/02/19 16:45 04/02/19 21:05 04/03/19 07:27 Erythrocyte Sedimentation Rate 64 (0-25) Glucose (Fingerstick) 141 mg/dL (70-99) 235 mg/dL (70-99) 67 mg/dL (70-99) Test 04/03/19 07:53 04/03/19 11:32 04/03/19 16:29 04/03/19 21:24 Glucose (Fingerstick) 82 mg/dL (70-99) 129 mg/dL (70-99) 135 mg/dL (70-99) 167 mg/dL (70-99) Test 04/04/19 03:55 04/04/19 07:28 04/04/19 11:13 White Blood Count 5.3 x10^3/uL (4.0-11.0) Red Blood Count 3.68 x10^6/uL (3.50-5.40) Hemoglobin 10.2 g/dL (12.0-15.5) Hematocrit 31.1 % (36.0-47.0) Mean Corpuscular Volume 84 fL (79-100) Mean Corpuscular Hemoglobin 28 pg (25-35) Mean Corpuscular Hemoglobin Concent 33 g/dL (31-37) Red Cell Distribution Width 14.8 % (11.5-14.5) Platelet Count 182 x10^3/uL (140-400) Neutrophils (%) (Auto) 57 % (31-73) Lymphocytes (%) (Auto) 29 % (24-48) Monocytes (%) (Auto) 10 % (0-9) Eosinophils (%) (Auto) 4 % (0-3) Basophils (%) (Auto) 1 % (0-3) Neutrophils # (Auto) 3.0 x10^3/uL (1.8-7.7) Lymphocytes # (Auto) 1.5 x10^3/uL (1.0-4.8) Monocytes # (Auto) 0.5 x10^3/uL (0.0-1.1) Eosinophils # (Auto) 0.2 x10^3/uL (0.0-0.7) Basophils # (Auto) 0.0 x10^3/uL (0.0-0.2) Sodium Level 141 mmol/L (136-145) Potassium Level 3.4 mmol/L (3.5-5.1) Chloride Level 105 mmol/L (98-107) Carbon Dioxide Level 29 mmol/L (21-32) Anion Gap 7 (6-14) Blood Urea Nitrogen 14 mg/dL (7-20) Creatinine 0.6 mg/dL (0.6-1.0) Estimated GFR (Cockcroft-Gault) 103.4 Glucose Level 154 mg/dL (70-99) Calcium Level 8.3 mg/dL (8.5-10.1) Glucose (Fingerstick) 112 mg/dL (70-99) 101 mg/dL (70-99) Laboratory Tests Test 04/03/19 16:29 04/03/19 21:24 04/04/19 03:55 04/04/19 07:28 Glucose (Fingerstick) 135 mg/dL (70-99) 167 mg/dL (70-99) 112 mg/dL (70-99) White Blood Count 5.3 x10^3/uL (4.0-11.0) Red Blood Count 3.68 x10^6/uL (3.50-5.40) Hemoglobin 10.2 g/dL (12.0-15.5) Hematocrit 31.1 % (36.0-47.0) Mean Corpuscular Volume 84 fL (79-100) Mean Corpuscular Hemoglobin 28 pg (25-35) Mean Corpuscular Hemoglobin Concent 33 g/dL (31-37) Red Cell Distribution Width 14.8 % (11.5-14.5) Platelet Count 182 x10^3/uL (140-400) Neutrophils (%) (Auto) 57 % (31-73) Lymphocytes (%) (Auto) 29 % (24-48) Monocytes (%) (Auto) 10 % (0-9) Eosinophils (%) (Auto) 4 % (0-3) Basophils (%) (Auto) 1 % (0-3) Neutrophils # (Auto) 3.0 x10^3/uL (1.8-7.7) Lymphocytes # (Auto) 1.5 x10^3/uL (1.0-4.8) Monocytes # (Auto) 0.5 x10^3/uL (0.0-1.1) Eosinophils # (Auto) 0.2 x10^3/uL (0.0-0.7) Basophils # (Auto) 0.0 x10^3/uL (0.0-0.2) Sodium Level 141 mmol/L (136-145) Potassium Level 3.4 mmol/L (3.5-5.1) Chloride Level 105 mmol/L (98-107) Carbon Dioxide Level 29 mmol/L (21-32) Anion Gap 7 (6-14) Blood Urea Nitrogen 14 mg/dL (7-20) Creatinine 0.6 mg/dL (0.6-1.0) Estimated GFR (Cockcroft-Gault) 103.4 Glucose Level 154 mg/dL (70-99) Calcium Level 8.3 mg/dL (8.5-10.1) Test 04/04/19 11:13 Glucose (Fingerstick) 101 mg/dL (70-99) Vitals/I & O Vital Sign - Last 24 Hours 04/03/19 04/03/19 04/03/19 04/03/19 14:58 17:28 19:00 20:00 Temp 98.1 98.3 98.1 98.3 Pulse 79 91 Resp 18 18 B/P (MAP) 144/78 (100) 166/101 (122) Pulse Ox 97 97 95 O2 Delivery Room Air Room Air Room Air 04/03/19 04/04/19 04/04/19 04/04/19 23:00 03:00 07:00 07:00 Temp 98.5 98.0 97.9 98.5 98.0 97.9 Pulse 90 85 84 86 Resp 18 16 18 B/P (MAP) 157/97 (117) 122/78 (93) 144/88 141/82 (101) Pulse Ox 94 95 97 O2 Delivery Room Air 04/04/19 04/04/19 04/04/19 04/04/19 08:05 09:47 10:02 10:15 Temp 97.7 97.7 97.7 97.7 97.7 97.7 Pulse 80 85 82 Resp 16 16 17 B/P (MAP) 110/65 148/83 152/92 Pulse Ox 97 99 95 O2 Delivery Room Air Nasal Cannula Nasal Cannula Room Air O2 Flow Rate 2 2 04/04/19 04/04/19 04/04/19 04/04/19 10:30 10:45 11:00 11:15 Temp 97.9 97.9 Pulse 87 85 85 84 Resp 17 17 17 17 B/P (MAP) 164/95 (118) 161/89 (113) 158/88 (111) 144/88 (106) Pulse Ox 97 94 93 94 O2 Delivery Room Air Room Air Room Air Room Air Intake and Output 04/03/19 04/03/19 04/04/19 15:00 23:00 07:00 Intake Total 600 ml 300 ml 120 ml Output Total 300 ml Balance 300 ml 300 ml 120 ml Problem List Problems Medical Problems: (1) Elevated blood pressure reading without diagnosis of hypertension Status: Acute (2) Migraine headache Status: Acute (3) Nausea Status: Acute Assessment Anemia, normocytic, but iron studies suggesting IGLESIA on ACD. Relates remote colonoscopy with too much discomfort. No prior EGD. Plan of Care: Continue current Tx, Mgmt Plan of Care Note Needs to consider veliz-endoscopy. Not emergent; deal with other problems first. Reassured both prep and sedation much improved from 30 years ago. FRANTZ SAMPSON MD Apr 04, 2019 12:13
[2019-04-04] MEDS: HYDROcodone/APAP 5/325MG 1 TAB TABLET PO PRN ×2 (12:16→22:13)
--- NOTE | 2019-04-04 13:44 | PDOC ---
PROGRESS NOTES Chief Complaint Chief Complaint Accelerated hypertension Orthostatic hypotension Headache, intractable , worse 03/31 Peripheral neuropathy Atypical chest pain Acquired hypothyroidism due to thyroidectomy TIDM GERD CKD History of Present Illness History of Present Illness 04/04 MRI today, LP today now double vision, trying to wear eye patch neuro following Vitals Vitals Vital Signs Date Time Temp Pulse Resp B/P (MAP) Pulse Ox O2 Delivery O2 Flow Rate FiO2 04/04/19 12:16 Room Air 04/04/19 12:15 85 17 150/84 (106) 94 04/04/19 10:30 97.9 97.9 04/04/19 10:02 2 Physical Exam Physical Exam Neuro: PERRLA, EOMI, strength 5/5 in all extremities General: Alert, Oriented X3, Cooperative Heart: Regular rate, Normal S1, Normal S2 Lungs: Clear Abdomen: Normal bowel sounds, Soft Extremities: No clubbing, No cyanosis Skin: No rashes, No breakdown Labs LABS Laboratory Tests Test 04/03/19 16:29 04/03/19 21:24 04/04/19 03:55 04/04/19 07:28 Glucose (Fingerstick) 135 mg/dL (70-99) 167 mg/dL (70-99) 112 mg/dL (70-99) White Blood Count 5.3 x10^3/uL (4.0-11.0) Red Blood Count 3.68 x10^6/uL (3.50-5.40) Hemoglobin 10.2 g/dL (12.0-15.5) Hematocrit 31.1 % (36.0-47.0) Mean Corpuscular Volume 84 fL (79-100) Mean Corpuscular Hemoglobin 28 pg (25-35) Mean Corpuscular Hemoglobin Concent 33 g/dL (31-37) Red Cell Distribution Width 14.8 % (11.5-14.5) Platelet Count 182 x10^3/uL (140-400) Neutrophils (%) (Auto) 57 % (31-73) Lymphocytes (%) (Auto) 29 % (24-48) Monocytes (%) (Auto) 10 % (0-9) Eosinophils (%) (Auto) 4 % (0-3) Basophils (%) (Auto) 1 % (0-3) Neutrophils # (Auto) 3.0 x10^3/uL (1.8-7.7) Lymphocytes # (Auto) 1.5 x10^3/uL (1.0-4.8) Monocytes # (Auto) 0.5 x10^3/uL (0.0-1.1) Eosinophils # (Auto) 0.2 x10^3/uL (0.0-0.7) Basophils # (Auto) 0.0 x10^3/uL (0.0-0.2) Sodium Level 141 mmol/L (136-145) Potassium Level 3.4 mmol/L (3.5-5.1) Chloride Level 105 mmol/L (98-107) Carbon Dioxide Level 29 mmol/L (21-32) Anion Gap 7 (6-14) Blood Urea Nitrogen 14 mg/dL (7-20) Creatinine 0.6 mg/dL (0.6-1.0) Estimated GFR (Cockcroft-Gault) 103.4 Glucose Level 154 mg/dL (70-99) Calcium Level 8.3 mg/dL (8.5-10.1) Test 04/04/19 11:13 Glucose (Fingerstick) 101 mg/dL (70-99) Assessment and Plan Assessmemt and Plan Problems Medical Problems: (1) Elevated blood pressure reading without diagnosis of hypertension Status: Acute (2) Migraine headache Status: Acute (3) Nausea Status: Acute Comment Review of Relevant I have reviewed the following items zurdo (where applicable) has been applied. Labs Laboratory Tests Test 04/02/19 13:50 04/02/19 16:45 04/02/19 21:05 04/03/19 07:27 Erythrocyte Sedimentation Rate 64 (0-25) Glucose (Fingerstick) 141 mg/dL (70-99) 235 mg/dL (70-99) 67 mg/dL (70-99) Test 04/03/19 07:53 04/03/19 11:32 04/03/19 16:29 04/03/19 21:24 Glucose (Fingerstick) 82 mg/dL (70-99) 129 mg/dL (70-99) 135 mg/dL (70-99) 167 mg/dL (70-99) Test 04/04/19 03:55 04/04/19 07:28 04/04/19 11:13 White Blood Count 5.3 x10^3/uL (4.0-11.0) Red Blood Count 3.68 x10^6/uL (3.50-5.40) Hemoglobin 10.2 g/dL (12.0-15.5) Hematocrit 31.1 % (36.0-47.0) Mean Corpuscular Volume 84 fL (79-100) Mean Corpuscular Hemoglobin 28 pg (25-35) Mean Corpuscular Hemoglobin Concent 33 g/dL (31-37) Red Cell Distribution Width 14.8 % (11.5-14.5) Platelet Count 182 x10^3/uL (140-400) Neutrophils (%) (Auto) 57 % (31-73) Lymphocytes (%) (Auto) 29 % (24-48) Monocytes (%) (Auto) 10 % (0-9) Eosinophils (%) (Auto) 4 % (0-3) Basophils (%) (Auto) 1 % (0-3) Neutrophils # (Auto) 3.0 x10^3/uL (1.8-7.7) Lymphocytes # (Auto) 1.5 x10^3/uL (1.0-4.8) Monocytes # (Auto) 0.5 x10^3/uL (0.0-1.1) Eosinophils # (Auto) 0.2 x10^3/uL (0.0-0.7) Basophils # (Auto) 0.0 x10^3/uL (0.0-0.2) Sodium Level 141 mmol/L (136-145) Potassium Level 3.4 mmol/L (3.5-5.1) Chloride Level 105 mmol/L (98-107) Carbon Dioxide Level 29 mmol/L (21-32) Anion Gap 7 (6-14) Blood Urea Nitrogen 14 mg/dL (7-20) Creatinine 0.6 mg/dL (0.6-1.0) Estimated GFR (Cockcroft-Gault) 103.4 Glucose Level 154 mg/dL (70-99) Calcium Level 8.3 mg/dL (8.5-10.1) Glucose (Fingerstick) 112 mg/dL (70-99) 101 mg/dL (70-99) Laboratory Tests Test 04/03/19 16:29 04/03/19 21:24 04/04/19 03:55 04/04/19 07:28 Glucose (Fingerstick) 135 mg/dL (70-99) 167 mg/dL (70-99) 112 mg/dL (70-99) White Blood Count 5.3 x10^3/uL (4.0-11.0) Red Blood Count 3.68 x10^6/uL (3.50-5.40) Hemoglobin 10.2 g/dL (12.0-15.5) Hematocrit 31.1 % (36.0-47.0) Mean Corpuscular Volume 84 fL (79-100) Mean Corpuscular Hemoglobin 28 pg (25-35) Mean Corpuscular Hemoglobin Concent 33 g/dL (31-37) Red Cell Distribution Width 14.8 % (11.5-14.5) Platelet Count 182 x10^3/uL (140-400) Neutrophils (%) (Auto) 57 % (31-73) Lymphocytes (%) (Auto) 29 % (24-48) Monocytes (%) (Auto) 10 % (0-9) Eosinophils (%) (Auto) 4 % (0-3) Basophils (%) (Auto) 1 % (0-3) Neutrophils # (Auto) 3.0 x10^3/uL (1.8-7.7) Lymphocytes # (Auto) 1.5 x10^3/uL (1.0-4.8) Monocytes # (Auto) 0.5 x10^3/uL (0.0-1.1) Eosinophils # (Auto) 0.2 x10^3/uL (0.0-0.7) Basophils # (Auto) 0.0 x10^3/uL (0.0-0.2) Sodium Level 141 mmol/L (136-145) Potassium Level 3.4 mmol/L (3.5-5.1) Chloride Level 105 mmol/L (98-107) Carbon Dioxide Level 29 mmol/L (21-32) Anion Gap 7 (6-14) Blood Urea Nitrogen 14 mg/dL (7-20) Creatinine 0.6 mg/dL (0.6-1.0) Estimated GFR (Cockcroft-Gault) 103.4 Glucose Level 154 mg/dL (70-99) Calcium Level 8.3 mg/dL (8.5-10.1) Test 04/04/19 11:13 Glucose (Fingerstick) 101 mg/dL (70-99) Medications Current Medications Prochlorperazine Edisylate (Compazine) 10 mg 1X ONCE IM Last administered on 03/29/19 17:42; Start 03/29/19 at 17:30; Stop 03/29/19 at 17:31; Status DC Fentanyl Citrate (Fentanyl 2ml Vial) 50 mcg 1X ONCE IM Last administered on 03/29/19 17:42; Start 03/29/19 at 17:30; Stop 03/29/19 at 17:31; Status DC Ondansetron HCl (Zofran) 4 mg PRN Q8HRS PRN IV NAUSEA/VOMITING; Start 03/29/19 at 18:15; Stop 03/29/19 at 18:56; Status DC Fentanyl Citrate (Fentanyl 2ml Vial) 50 mcg Q2HR PRN IV PAIN Last administered on 03/29/19 20:55; Start 03/29/19 at 18:15; Stop 03/29/19 at 22:00; Status DC Amitriptyline HCl (Elavil) 50 mg QHS PO Last administered on 04/03/19at 20:47; Start 03/29/19 at 21:00 Cetirizine HCl (ZyrTEC) 10 mg PRN DAILY PRN PO ALLERGIES/congestion Last administered on 04/01/19at 08:49; Start 03/29/19 at 18:15 Fludrocortisone Acetate (Florinef) 0.1 mg DAILY PO Last administered on 04/03/19 08:34; Start 03/30/19 at 09:00 Gabapentin (Neurontin) 600 mg HS PO Last administered on 04/03/19at 20:48; Start 03/29/19 at 21:00 Levothyroxine Sodium (Synthroid) 100 mcg HS PO ; Start 03/29/19 at 21:00; Stop 03/29/19 at 20:41; Status DC Sodium Chloride (Saline Mist Nasal) 1 jacques PRN Q1HR PRN NS NASAL CONGESTION; Start 03/29/19 at 18:15 Non-Formulary Medication (Insulin Aspart (Novolog Flexpen)) 1 unit TIDAC SQ ; Start 03/30/19 at 07:30; Status UNV Insulin Glargine (Lantus Syringe) 30 unit DAILY08 SQ ; Start 03/30/19 at 08:00; Stop 03/30/19 at 10:01; Status DC Non-Formulary Medication (Lovastatin ) 10 mg HS PO ; Start 03/29/19 at 21:00; Stop 04/02/19 at 09:32; Status DC Midodrine (Proamatine) 10 mg [id number] PO ; Start 03/30/19 at 07:00 Ondansetron HCl (Zofran Odt) 4 mg PRN Q8HRS PRN PO NAUSEA/VOMITING 1ST CHOICE Last administered on 04/03/19at 17:28; Start 03/29/19 at 18:30 Sodium Chloride (Normal Saline Flush) 3 ml QSHIFT PRN IV AFTER MEDS AND BLOOD DRAWS; Start 03/29/19 at 18:45 Sodium Chloride 1,000 ml @ 100 mls/hr Q10H IV Last administered on 04/01/19at 03:03; Start 03/29/19 at 18:45; Stop 04/02/19 at 12:58; Status DC Ondansetron HCl (Zofran) 4 mg PRN Q4HRS PRN IV NAUSEA/VOMITING; Start 03/29/19 at 18:45 Zolpidem Tartrate (Ambien) 5 mg PRN QHS PRN PO INSOMNIA; Start 03/29/19 at 18:45 Acetaminophen (Tylenol) 650 mg PRN Q4HRS PRN PO TEMP OVER 100.4F OR MILD PAIN Last administered on 04/02/19at 20:34; Start 03/29/19 at 18:45 Al Hydroxide/Mg Hydroxide (Mylanta Plus Xs) 30 ml PRN DAILY PRN PO HEARTBURN / GAS; Start 03/29/19 at 18:45 Clonidine HCl (Catapres) 0.1 mg PRN Q6HRS PRN PO SBP>160 OR DBP>90; Start 03/29/19 at 18:45 Docusate Sodium (Colace) 100 mg PRN BID PRN PO CONSTIPATION; Start 03/29/19 at 18:45 Albuterol Sulfate (Ventolin Neb Soln) 2.5 mg PRN Q4HRS PRN NEB SHORTNESS OF BREATH; Start 03/29/19 at 18:45 Lorazepam (Ativan) 0.5 mg PRN Q4HRS PRN PO ANXIETY / AGITATION; Start 03/29/19 at 18:45 Lorazepam (Ativan Inj) 2 mg PRN Q4HRS PRN IV ANXIETY / AGITATION; Start 03/29/19 at 18:45 Enoxaparin Sodium (Lovenox 40mg Syringe) 40 mg DAILY SQ Last administered on 04/03/19at 08:35; Start 03/30/19 at 09:00 Hydralazine HCl (Apresoline Inj) 10 mg PRN Q4HRS PRN IVP HYPERTENSION Last administered on 03/29/19at 20:54; Start 03/29/19 at 19:00 Levothyroxine Sodium (Synthroid) 200 mcg HS PO Last administered on 04/03/19 20:48; Start 03/29/19 at 21:00 Insulin Human Lispro (HumaLOG) for blood glucose > 180, g... TIDWMEALS SQ ; Start 03/30/19 at 08:00; Stop 03/30/19 at 10:01; Status DC Dextrose (Dextrose 50%-Water Syringe) 12.5 gm PRN Q15MIN PRN IV SEE COMMENTS; Start 03/29/19 at 23:00 Non-Formulary Medication 1 ea TIDAC SQ Last administered on 04/01/19at 12:05; Start 03/30/19 at 11:30 Non-Formulary Medication 1 ea DAILY SQ Last administered on 04/02/19at 08:29; Start 03/31/19 at 09:00 Metoprolol Succinate (Toprol Xl) 25 mg 1X ONCE PO Last administered on 03/30/19at 12:24; Start 03/30/19 at 12:00; Stop 03/30/19 at 12:05; Status DC Metoprolol Succinate (Toprol Xl) 25 mg DAILY PO Last administered on 04/01/19 08:50; Start 03/31/19 at 09:00 Topiramate (Topamax) 25 mg BID PO Last administered on 04/01/19 08:49; Start 03/30/19 at 21:00; Stop 04/02/19 at 17:24; Status DC Lorazepam (Ativan) 2 mg ONCE PRN PO ANXIETY / AGITATION; Start 04/02/19 at 17:45 Acetaminophen/ Hydrocodone Bitart (Lortab 5/325) 1 tab PRN Q6HRS PRN PO MODERATE PAIN 4-6 Last administered on 04/04/19at 12:16; Start 04/02/19 at 23:15 Influenza Virus Vaccine Quadrival (Afluria Quad 2019-20 (3yr Up) Syringe) 0.5 ml ONCE ONCE VAX IM ; Start 04/03/19 at 09:30; Stop 04/03/19 at 09:31; Status DC Dihydroergotamine Mesylate 1 mg/ Sodium Chloride 51 ml @ 102 mls/hr 1X ONCE IV Last administered on 04/03/19at 12:57; Start 04/03/19 at 12:30; Stop 04/03/19 at 12:59; Status DC Metoclopramide HCl (Reglan) 10 mg 1X ONCE PO Last administered on 04/03/19at 12:27; Start 04/03/19 at 12:20; Stop 04/03/19 at 12:21; Status DC Ringer's Solution 1,000 ml @ 50 mls/hr Q20H IV ; Start 04/04/19 at 07:00; Stop 04/04/19 at 18:59 Fentanyl Citrate (Fentanyl 2ml Vial) 100 mcg STK-MED ONCE .ROUTE ; Start 04/04/19 at 08:50; Stop 04/04/19 at 08:51; Status DC Midazolam HCl (Versed) 2 mg STK-MED ONCE .ROUTE ; Start 04/04/19 at 08:51; Stop 04/04/19 at 08:51; Status DC Ketamine HCl (Ketamine) 50 mg STK-MED ONCE .ROUTE ; Start 04/04/19 at 08:51; Stop 04/04/19 at 08:51; Status DC Propofol 20 ml @ As Directed STK-MED ONCE IV ; Start 04/04/19 at 08:53; Stop 04/04/19 at 08:53; Status DC Lidocaine HCl (Lidocaine Pf 2% Vial) 5 ml STK-MED ONCE .ROUTE ; Start 04/04/19 at 08:53; Stop 04/04/19 at 08:53; Status DC Active Scripts Active Zofran (Ondansetron Hcl) 4 Mg Tablet 1 Tab PO PRN Q6-8HRS Doxycycline Hyclate 100 Mg Tablet 1 Tab PO BID [place] (Sodium Chloride) 44 Ml [place] 1 Jacques NS PRN Q1HR PRN 28 Days Cetirizine Hcl 10 Mg Tablet 10 Mg PO PRN DAILY PRN 10 Days Fludrocortisone Acetate 0.1 Mg Tablet 0.1 Mg PO DAILY 30 Days Amitriptyline Hcl 25 Mg Tablet 50 Mg PO QHS 30 Days Reported Levothyroxine Sodium 100 Mcg Tablet 200 Mcg PO HS Novolog Flexpen (Insulin Aspart) 100 Unit/1 Ml Insuln.pen 1 Unit SQ TIDAC PER SLIDING SCALE Midodrine Hcl 10 Mg Tablet 10 Mg PO TID Basaglar Kwikpen U-100 (Insulin Glargine,Hum.rec.anlog) 100 Unit/1 Ml Insuln.pen 30 Unit SQ DAILY08 Lovastatin 10 Mg Tablet 10 Mg PO HS Gabapentin (Gabapentin) 300 Mg Capsule 600 Mg PO HS Vitals/I & O Vital Sign - Last 24 Hours 04/03/19 04/03/19 04/03/19 04/03/19 14:58 17:28 19:00 20:00 Temp 98.1 98.3 98.1 98.3 Pulse 79 91 Resp 18 18 B/P (MAP) 144/78 (100) 166/101 (122) Pulse Ox 97 97 95 O2 Delivery Room Air Room Air Room Air 04/03/19 04/04/19 04/04/19 04/04/19 23:00 03:00 07:00 07:00 Temp 98.5 98.0 97.9 98.5 98.0 97.9 Pulse 90 85 84 86 Resp 18 16 18 B/P (MAP) 157/97 (117) 122/78 (93) 144/88 141/82 (101) Pulse Ox 94 95 97 O2 Delivery Room Air 04/04/19 04/04/19 04/04/19 04/04/19 08:05 09:47 10:02 10:15 Temp 97.7 97.7 97.7 97.7 97.7 97.7 Pulse 80 85 82 Resp 16 16 17 B/P (MAP) 110/65 148/83 152/92 Pulse Ox 97 99 95 O2 Delivery Room Air Nasal Cannula Nasal Cannula Room Air O2 Flow Rate 2 2 04/04/19 04/04/19 04/04/19 04/04/19 10:30 10:45 11:00 11:15 Temp 97.9 97.9 Pulse 87 85 85 84 Resp 17 17 17 17 B/P (MAP) 164/95 (118) 161/89 (113) 158/88 (111) 144/88 (106) Pulse Ox 97 94 93 94 O2 Delivery Room Air Room Air Room Air Room Air 04/04/19 04/04/19 04/04/19 11:45 12:15 12:16 Pulse 88 85 Resp 17 17 B/P (MAP) 160/92 (114) 150/84 (106) Pulse Ox 95 94 O2 Delivery Room Air Room Air Room Air Intake and Output 04/03/19 04/03/19 04/04/19 15:00 23:00 07:00 Intake Total 600 ml 300 ml 120 ml Output Total 300 ml Balance 300 ml 300 ml 120 ml PAT MCCOY MD Apr 04, 2019 13:44
[2019-04-04] MEDS ORDERED: CHLOROPROCAINE 3% MPF 20 ML VIAL. IJ ONE (14:45)
[2019-04-04 15:45] LABS: CSF PROTEIN 74.7 mg/dL (15.0-45.0)
[2019-04-04 16:23] LABS: CSF CLARITY CLEAR; CSF COLOR COLORLESS; CSF RBC COUNT 7 /cmm (Not Established); CSF WBC COUNT 3 /cmm (Not Established)
[2019-04-04] MEDS: FLUDROCORTISONE 0.1 MG TABLET PO SCH (17:12)
[2019-04-04] MEDS: METOPROLOL SUCC 24HR ER 25 MG TAB.ER.24H. PO SCH (17:12)
--- NOTE | 2019-04-04 17:24 | RAD ---
Examination: LUMBAR PUNCTURE History: Intractable headache Comparison/Correlation: None Findings: Risks and benefits of fluoroscopically guided lumbar puncture were discussed with the patient and informed consent was obtained. A total of 7 fluoroscopic images were acquired. Anesthesiologist was present and the patient was sedated for this exam. The patient was placed in the prone JESS position. Cleansing was ChloraPrep was performed after determination of the site of needle placement at the L5-S1 level. Sterile drape was placed. A total of 7 cc chloroprocaine was administered at the anticipated site of needle placement with a 25-gauge needle and then more deeply directed towards the thecal sac utilizing a 20-gauge needle. 20-gauge spinal needle was then placed into the thecal sac utilizing an interlaminar approach. The CSF flow was brisk. Opening pressure of 20.5 mmHg is noted with the patient in the left lateral decubitus position. A total of 18.5 cc clear CSF was withdrawn. The patient noted procedure well without immediate complications. Impression: Successful lumbar puncture with withdrawal of 18.5 cc clear CSF. Specimens were provided to the patient's valverde for submission to the lab if desired. Opening pressures at the upper limit of normal. Electronically signed by: Cameron Ramírez MD (04/04/2019 5:21 PM) [facility]
[2019-04-04] MEDS ORDERED: PROCHLORPERAZINE 10 MG/2 ML VIAL. IV PRN (18:00)
[2019-04-04] MEDS ORDERED: SUMAtriptan SUCCINATE 25 MG TABLET PO PRN (18:00)
[2019-04-04] MEDS: hydrALAZINE 20 MG/ML VIAL. IVP PRN (20:50)
[2019-04-04] MEDS: LEVOTHYROXINE 100 MCG TABLET PO SCH (22:13)
[2019-04-04] MEDS: GABAPENTIN 300 MG CAPSULE. PO SCH (22:13)
[2019-04-04] MEDS: ONDANSETRON ODT 4 MG TAB.RAPDIS. PO PRN (22:13)
[2019-04-04] MEDS: AMITRIPTYLINE HCL 25 MG TABLET. PO SCH (22:14)
[2019-04-05 03:00] VITALS: BP 155/87
[2019-04-05 04:56] LABS: BASO % 1 % (0-3); EOS # 0.2 x10^3/uL (0.0-0.7); EOS % 4 % (0-3); HEMATOCRIT 31.3 % (36.0-47.0); HEMOGLOBIN 10.2 g/dL (12.0-15.5); LYMPH # 1.3 x10^3/uL (1.0-4.8); LYMPH % 26 % (24-48); MEAN CORPUSCULAR HEMOGLOBIN 28 pg (25-35); MEAN CORPUSCULAR HGB CONC 33 g/dL (31-37); MEAN CORPUSCULAR VOLUME 84 fL (79-100); MONO # 0.3 x10^3/uL (0.0-1.1); MONO % 7 % (0-9); NEUT % 62 % (31-73); PLATELET COUNT 198 x10^3/uL (140-400); RED BLOOD COUNT 3.71 x10^6/uL (3.50-5.40); RED CELL DISTRIBUTION WIDTH 14.6 % (11.5-14.5); WHITE BLOOD COUNT 4.8 x10^3/uL (4.0-11.0)
[2019-04-05] MEDS: MIDODRINE 5 MG TABLET PO SCH ×3 (05:11→17:04)
[2019-04-05 05:13] LABS: CALCIUM 8.6 mg/dL (8.5-10.1); CREATININE 0.6 mg/dL (0.6-1.0); GFR 103.4; POTASSIUM 3.5 mmol/L (3.5-5.1)
[2019-04-05 07:00] VITALS: BP 161/96
[2019-04-05] MEDS: ENOXAPARIN 40 MG/0.4 ML SYRINGE. SQ SCH (09:32)
[2019-04-05] MEDS: METOPROLOL SUCC 24HR ER 25 MG TAB.ER.24H. PO SCH (09:32)
[2019-04-05] MEDS: HYDROcodone/APAP 5/325MG 1 TAB TABLET PO PRN (09:33)
[2019-04-05] MEDS: FLUDROCORTISONE 0.1 MG TABLET PO SCH (09:33)
[2019-04-05] MEDS: INSULIN GLARGINE SQ SCH (09:42)
[2019-04-05] MEDS: [UNRECOGNIZED DRUG - OTHER] SQ SCH (09:42)
--- NOTE | 2019-04-05 10:42 | PDOC ---
Subjective: Subjective: Headache and pain across upper abdomen under breasts around to back. Thinks it's her gallbladder. Reports previous US in Nov unrevealing. Tired of being medicated, wants answers. Not much appetite. Objective: Objective: RUQ US 02/28/19 IMPRESSION: 1. Hepatomegaly. Possible mild diffuse hepatic steatosis. The gallbladder is unremarkable without evidence of stones, wall thickening or pericholecystic fluid. There is no sonographic Ugarte sign. The common duct measures [address] A?P 02/28/19 IMPRESSION: 1. Mild fat stranding identified about the bilateral kidneys could be due to urinary tract infection. Correlate with urine analysis. 2. Subtle questionable fat stranding identified about the pancreas probably secondary to artifact and less likely pancreatitis. Correlate with lab values. Lipase normal in the past, not checked this admission. Vital Signs: Vital Signs Date Time Temp Pulse Resp B/P (MAP) Pulse Ox O2 Delivery O2 Flow Rate FiO2 04/05/19 09:33 16 Room Air 04/05/19 09:32 92 161/96 04/05/19 08:00 2.0 04/05/19 07:00 97.7 94 97.7 Labs: Laboratory Tests Test 04/04/19 11:13 04/04/19 16:23 04/04/19 20:26 04/05/19 07:35 Glucose (Fingerstick) 101 mg/dL (70-99) 130 mg/dL (70-99) 124 mg/dL (70-99) 104 mg/dL (70-99) Imaging: MRA brain Impression: 1. No acute intracranial abnormality. 2. No intracranial arterial stenosis or occlusion. 3. Mild nonspecific white matter changes, most often due to chronic microvascular ischemia, unchanged. PE: GEN: uncomfortable LUNGS: CTAB HEART: RRR ABD: tender in upper abdomen under breasts NEURO/PSYCH: A & O 3 A/P: Migraines s/p LP w/ elevated protein Chronic upper abd pain, decreased appetite ACD/IGLESIA -- Previous imaging as above. Try PPI. ENOC BUTTERFIELD Apr 05, 2019 10:42
--- NOTE | 2019-04-05 10:46 | PDOC ---
PROGRESS NOTES Chief Complaint Chief Complaint Accelerated hypertension Orthostatic hypotension Headache, intractable , worse 03/31 Peripheral neuropathy Atypical chest pain Acquired hypothyroidism due to thyroidectomy TIDM GERD CKD History of Present Illness History of Present Illness still double vision and headache LP results not helpful cont current abd pain and chest pain, GI w/u, eval natasha, cont current Vitals Vitals Vital Signs Date Time Temp Pulse Resp B/P (MAP) Pulse Ox O2 Delivery O2 Flow Rate FiO2 04/05/19 09:33 16 Room Air 04/05/19 09:32 92 161/96 04/05/19 08:00 2.0 04/05/19 07:00 97.7 94 97.7 Physical Exam Physical Exam Neuro: PERRLA, EOMI, strength 5/5 in all extremities General: Alert, Oriented X3, Cooperative Heart: Regular rate, Normal S1, Normal S2 Lungs: Clear Abdomen: Normal bowel sounds, Soft Extremities: No clubbing, No cyanosis Skin: No rashes, No breakdown Labs LABS Laboratory Tests Test 04/04/19 11:13 04/04/19 15:20 04/04/19 16:23 04/04/19 20:26 Glucose (Fingerstick) 101 mg/dL (70-99) 130 mg/dL (70-99) 124 mg/dL (70-99) CSF Tube Number 3 CSF Color Colorless CSF Clarity Clear CSF WBC 3 /cmm (Not Established) CSF RBC 7 /cmm (Not Established) CSF Glucose 71 mg/dL (37-70) CSF Total Protein 74.7 mg/dL (15.0-45.0) Test 04/05/19 03:15 04/05/19 07:35 White Blood Count 4.8 x10^3/uL (4.0-11.0) Red Blood Count 3.71 x10^6/uL (3.50-5.40) Hemoglobin 10.2 g/dL (12.0-15.5) Hematocrit 31.3 % (36.0-47.0) Mean Corpuscular Volume 84 fL (79-100) Mean Corpuscular Hemoglobin 28 pg (25-35) Mean Corpuscular Hemoglobin Concent 33 g/dL (31-37) Red Cell Distribution Width 14.6 % (11.5-14.5) Platelet Count 198 x10^3/uL (140-400) Neutrophils (%) (Auto) 62 % (31-73) Lymphocytes (%) (Auto) 26 % (24-48) Monocytes (%) (Auto) 7 % (0-9) Eosinophils (%) (Auto) 4 % (0-3) Basophils (%) (Auto) 1 % (0-3) Neutrophils # (Auto) 3.0 x10^3/uL (1.8-7.7) Lymphocytes # (Auto) 1.3 x10^3/uL (1.0-4.8) Monocytes # (Auto) 0.3 x10^3/uL (0.0-1.1) Eosinophils # (Auto) 0.2 x10^3/uL (0.0-0.7) Basophils # (Auto) 0.0 x10^3/uL (0.0-0.2) Sodium Level 141 mmol/L (136-145) Potassium Level 3.5 mmol/L (3.5-5.1) Chloride Level 104 mmol/L (98-107) Carbon Dioxide Level 28 mmol/L (21-32) Anion Gap 9 (6-14) Blood Urea Nitrogen 13 mg/dL (7-20) Creatinine 0.6 mg/dL (0.6-1.0) Estimated GFR (Cockcroft-Gault) 103.4 Glucose Level 123 mg/dL (70-99) Calcium Level 8.6 mg/dL (8.5-10.1) Glucose (Fingerstick) 104 mg/dL (70-99) Assessment and Plan Assessmemt and Plan Problems Medical Problems: (1) Elevated blood pressure reading without diagnosis of hypertension Status: Acute (2) Migraine headache Status: Acute (3) Nausea Status: Acute Comment Review of Relevant I have reviewed the following items zurdo (where applicable) has been applied. Labs Laboratory Tests Test 04/03/19 11:32 04/03/19 16:29 04/03/19 21:24 04/04/19 03:55 Glucose (Fingerstick) 129 mg/dL (70-99) 135 mg/dL (70-99) 167 mg/dL (70-99) White Blood Count 5.3 x10^3/uL (4.0-11.0) Red Blood Count 3.68 x10^6/uL (3.50-5.40) Hemoglobin 10.2 g/dL (12.0-15.5) Hematocrit 31.1 % (36.0-47.0) Mean Corpuscular Volume 84 fL (79-100) Mean Corpuscular Hemoglobin 28 pg (25-35) Mean Corpuscular Hemoglobin Concent 33 g/dL (31-37) Red Cell Distribution Width 14.8 % (11.5-14.5) Platelet Count 182 x10^3/uL (140-400) Neutrophils (%) (Auto) 57 % (31-73) Lymphocytes (%) (Auto) 29 % (24-48) Monocytes (%) (Auto) 10 % (0-9) Eosinophils (%) (Auto) 4 % (0-3) Basophils (%) (Auto) 1 % (0-3) Neutrophils # (Auto) 3.0 x10^3/uL (1.8-7.7) Lymphocytes # (Auto) 1.5 x10^3/uL (1.0-4.8) Monocytes # (Auto) 0.5 x10^3/uL (0.0-1.1) Eosinophils # (Auto) 0.2 x10^3/uL (0.0-0.7) Basophils # (Auto) 0.0 x10^3/uL (0.0-0.2) Sodium Level 141 mmol/L (136-145) Potassium Level 3.4 mmol/L (3.5-5.1) Chloride Level 105 mmol/L (98-107) Carbon Dioxide Level 29 mmol/L (21-32) Anion Gap 7 (6-14) Blood Urea Nitrogen 14 mg/dL (7-20) Creatinine 0.6 mg/dL (0.6-1.0) Estimated GFR (Cockcroft-Gault) 103.4 Glucose Level 154 mg/dL (70-99) Calcium Level 8.3 mg/dL (8.5-10.1) Test 04/04/19 07:28 04/04/19 11:13 04/04/19 15:20 04/04/19 16:23 Glucose (Fingerstick) 112 mg/dL (70-99) 101 mg/dL (70-99) 130 mg/dL (70-99) CSF Tube Number 3 CSF Color Colorless CSF Clarity Clear CSF WBC 3 /cmm (Not Established) CSF RBC 7 /cmm (Not Established) CSF Glucose 71 mg/dL (37-70) CSF Total Protein 74.7 mg/dL (15.0-45.0) Test 04/04/19 20:26 04/05/19 03:15 04/05/19 07:35 Glucose (Fingerstick) 124 mg/dL (70-99) 104 mg/dL (70-99) White Blood Count 4.8 x10^3/uL (4.0-11.0) Red Blood Count 3.71 x10^6/uL (3.50-5.40) Hemoglobin 10.2 g/dL (12.0-15.5) Hematocrit 31.3 % (36.0-47.0) Mean Corpuscular Volume 84 fL (79-100) Mean Corpuscular Hemoglobin 28 pg (25-35) Mean Corpuscular Hemoglobin Concent 33 g/dL (31-37) Red Cell Distribution Width 14.6 % (11.5-14.5) Platelet Count 198 x10^3/uL (140-400) Neutrophils (%) (Auto) 62 % (31-73) Lymphocytes (%) (Auto) 26 % (24-48) Monocytes (%) (Auto) 7 % (0-9) Eosinophils (%) (Auto) 4 % (0-3) Basophils (%) (Auto) 1 % (0-3) Neutrophils # (Auto) 3.0 x10^3/uL (1.8-7.7) Lymphocytes # (Auto) 1.3 x10^3/uL (1.0-4.8) Monocytes # (Auto) 0.3 x10^3/uL (0.0-1.1) Eosinophils # (Auto) 0.2 x10^3/uL (0.0-0.7) Basophils # (Auto) 0.0 x10^3/uL (0.0-0.2) Sodium Level 141 mmol/L (136-145) Potassium Level 3.5 mmol/L (3.5-5.1) Chloride Level 104 mmol/L (98-107) Carbon Dioxide Level 28 mmol/L (21-32) Anion Gap 9 (6-14) Blood Urea Nitrogen 13 mg/dL (7-20) Creatinine 0.6 mg/dL (0.6-1.0) Estimated GFR (Cockcroft-Gault) 103.4 Glucose Level 123 mg/dL (70-99) Calcium Level 8.6 mg/dL (8.5-10.1) Laboratory Tests Test 04/04/19 11:13 04/04/19 15:20 04/04/19 16:23 04/04/19 20:26 Glucose (Fingerstick) 101 mg/dL (70-99) 130 mg/dL (70-99) 124 mg/dL (70-99) CSF Tube Number 3 CSF Color Colorless CSF Clarity Clear CSF WBC 3 /cmm (Not Established) CSF RBC 7 /cmm (Not Established) CSF Glucose 71 mg/dL (37-70) CSF Total Protein 74.7 mg/dL (15.0-45.0) Test 04/05/19 03:15 04/05/19 07:35 White Blood Count 4.8 x10^3/uL (4.0-11.0) Red Blood Count 3.71 x10^6/uL (3.50-5.40) Hemoglobin 10.2 g/dL (12.0-15.5) Hematocrit 31.3 % (36.0-47.0) Mean Corpuscular Volume 84 fL (79-100) Mean Corpuscular Hemoglobin 28 pg (25-35) Mean Corpuscular Hemoglobin Concent 33 g/dL (31-37) Red Cell Distribution Width 14.6 % (11.5-14.5) Platelet Count 198 x10^3/uL (140-400) Neutrophils (%) (Auto) 62 % (31-73) Lymphocytes (%) (Auto) 26 % (24-48) Monocytes (%) (Auto) 7 % (0-9) Eosinophils (%) (Auto) 4 % (0-3) Basophils (%) (Auto) 1 % (0-3) Neutrophils # (Auto) 3.0 x10^3/uL (1.8-7.7) Lymphocytes # (Auto) 1.3 x10^3/uL (1.0-4.8) Monocytes # (Auto) 0.3 x10^3/uL (0.0-1.1) Eosinophils # (Auto) 0.2 x10^3/uL (0.0-0.7) Basophils # (Auto) 0.0 x10^3/uL (0.0-0.2) Sodium Level 141 mmol/L (136-145) Potassium Level 3.5 mmol/L (3.5-5.1) Chloride Level 104 mmol/L (98-107) Carbon Dioxide Level 28 mmol/L (21-32) Anion Gap 9 (6-14) Blood Urea Nitrogen 13 mg/dL (7-20) Creatinine 0.6 mg/dL (0.6-1.0) Estimated GFR (Cockcroft-Gault) 103.4 Glucose Level 123 mg/dL (70-99) Calcium Level 8.6 mg/dL (8.5-10.1) Glucose (Fingerstick) 104 mg/dL (70-99) Medications Current Medications Prochlorperazine Edisylate (Compazine) 10 mg 1X ONCE IM Last administered on 03/29/19 17:42; Start 03/29/19 at 17:30; Stop 03/29/19 at 17:31; Status DC Fentanyl Citrate (Fentanyl 2ml Vial) 50 mcg 1X ONCE IM Last administered on 03/29/19 17:42; Start 03/29/19 at 17:30; Stop 03/29/19 at 17:31; Status DC Ondansetron HCl (Zofran) 4 mg PRN Q8HRS PRN IV NAUSEA/VOMITING; Start 03/29/19 at 18:15; Stop 03/29/19 at 18:56; Status DC Fentanyl Citrate (Fentanyl 2ml Vial) 50 mcg Q2HR PRN IV PAIN Last administered on 03/29/19 20:55; Start 03/29/19 at 18:15; Stop 03/29/19 at 22:00; Status DC Amitriptyline HCl (Elavil) 50 mg QHS PO Last administered on 04/04/19 22:14; Start 03/29/19 at 21:00 Cetirizine HCl (ZyrTEC) 10 mg PRN DAILY PRN PO ALLERGIES/congestion Last administered on 04/01/19 08:49; Start 03/29/19 at 18:15 Fludrocortisone Acetate (Florinef) 0.1 mg DAILY PO Last administered on 04/05/19at 09:33; Start 03/30/19 at 09:00 Gabapentin (Neurontin) 600 mg HS PO Last administered on 04/04/19at 22:13; Start 03/29/19 at 21:00 Levothyroxine Sodium (Synthroid) 100 mcg HS PO ; Start 03/29/19 at 21:00; Stop 03/29/19 at 20:41; Status DC Sodium Chloride (Saline Mist Nasal) 1 jacques PRN Q1HR PRN NS NASAL CONGESTION; Start 03/29/19 at 18:15 Non-Formulary Medication (Insulin Aspart (Novolog Flexpen)) 1 unit TIDAC SQ ; Start 03/30/19 at 07:30; Status UNV Insulin Glargine (Lantus Syringe) 30 unit DAILY08 SQ ; Start 03/30/19 at 08:00; Stop 03/30/19 at 10:01; Status DC Non-Formulary Medication (Lovastatin ) 10 mg HS PO ; Start 03/29/19 at 21:00; Stop 04/02/19 at 09:32; Status DC Midodrine (Proamatine) 10 mg [id number] PO ; Start 03/30/19 at 07:00 Ondansetron HCl (Zofran Odt) 4 mg PRN Q8HRS PRN PO NAUSEA/VOMITING 1ST CHOICE Last administered on 04/04/19at 22:13; Start 03/29/19 at 18:30 Sodium Chloride (Normal Saline Flush) 3 ml QSHIFT PRN IV AFTER MEDS AND BLOOD DRAWS; Start 03/29/19 at 18:45 Sodium Chloride 1,000 ml @ 100 mls/hr Q10H IV Last administered on 04/01/19at 03:03; Start 03/29/19 at 18:45; Stop 04/02/19 at 12:58; Status DC Ondansetron HCl (Zofran) 4 mg PRN Q4HRS PRN IV NAUSEA/VOMITING; Start 03/29/19 at 18:45 Zolpidem Tartrate (Ambien) 5 mg PRN QHS PRN PO INSOMNIA; Start 03/29/19 at 18:45 Acetaminophen (Tylenol) 650 mg PRN Q4HRS PRN PO TEMP OVER 100.4F OR MILD PAIN Last administered on 04/02/19at 20:34; Start 03/29/19 at 18:45 Al Hydroxide/Mg Hydroxide (Mylanta Plus Xs) 30 ml PRN DAILY PRN PO HEARTBURN / GAS; Start 03/29/19 at 18:45 Clonidine HCl (Catapres) 0.1 mg PRN Q6HRS PRN PO SBP>160 OR DBP>90; Start 03/29/19 at 18:45 Docusate Sodium (Colace) 100 mg PRN BID PRN PO CONSTIPATION; Start 03/29/19 at 18:45 Albuterol Sulfate (Ventolin Neb Soln) 2.5 mg PRN Q4HRS PRN NEB SHORTNESS OF BREATH; Start 03/29/19 at 18:45 Lorazepam (Ativan) 0.5 mg PRN Q4HRS PRN PO ANXIETY / AGITATION; Start 03/29/19 at 18:45 Lorazepam (Ativan Inj) 2 mg PRN Q4HRS PRN IV ANXIETY / AGITATION; Start 03/29/19 at 18:45 Enoxaparin Sodium (Lovenox 40mg Syringe) 40 mg DAILY SQ Last administered on 04/05/19at 09:32; Start 03/30/19 at 09:00 Hydralazine HCl (Apresoline Inj) 10 mg PRN Q4HRS PRN IVP HYPERTENSION Last administered on 04/04/19at 20:50; Start 03/29/19 at 19:00 Levothyroxine Sodium (Synthroid) 200 mcg HS PO Last administered on 04/04/19at 22:13; Start 03/29/19 at 21:00 Insulin Human Lispro (HumaLOG) for blood glucose > 180, g... TIDWMEALS SQ ; Start 03/30/19 at 08:00; Stop 03/30/19 at 10:01; Status DC Dextrose (Dextrose 50%-Water Syringe) 12.5 gm PRN Q15MIN PRN IV SEE COMMENTS; Start 03/29/19 at 23:00 Non-Formulary Medication 1 ea TIDAC SQ Last administered on 04/01/19at 12:05; Start 03/30/19 at 11:30 Non-Formulary Medication 1 ea DAILY SQ Last administered on 04/05/19at 09:42; Start 03/31/19 at 09:00 Metoprolol Succinate (Toprol Xl) 25 mg 1X ONCE PO Last administered on 03/30/19at 12:24; Start 03/30/19 at 12:00; Stop 03/30/19 at 12:05; Status DC Metoprolol Succinate (Toprol Xl) 25 mg DAILY PO Last administered on 04/05/19at 09:32; Start 03/31/19 at 09:00 Topiramate (Topamax) 25 mg BID PO Last administered on 04/01/19at 08:49; Start 03/30/19 at 21:00; Stop 04/02/19 at 17:24; Status DC Lorazepam (Ativan) 2 mg ONCE PRN PO ANXIETY / AGITATION; Start 04/02/19 at 17:45 Acetaminophen/ Hydrocodone Bitart (Lortab 5/325) 1 tab PRN Q6HRS PRN PO MODERATE PAIN 4-6 Last administered on 04/05/19at 09:33; Start 04/02/19 at 23:15 Influenza Virus Vaccine Quadrival (Afluria Quad 2019-20 (3yr Up) Syringe) 0.5 ml ONCE ONCE VAX IM ; Start 04/03/19 at 09:30; Stop 04/03/19 at 09:31; Status DC Dihydroergotamine Mesylate 1 mg/ Sodium Chloride 51 ml @ 102 mls/hr 1X ONCE IV Last administered on 04/03/19at 12:57; Start 04/03/19 at 12:30; Stop 04/03/19 at 12:59; Status DC Metoclopramide HCl (Reglan) 10 mg 1X ONCE PO Last administered on 04/03/19at 12:27; Start 04/03/19 at 12:20; Stop 04/03/19 at 12:21; Status DC Ringer's Solution 1,000 ml @ 50 mls/hr Q20H IV ; Start 04/04/19 at 07:00; Stop 04/04/19 at 18:59; Status DC Fentanyl Citrate (Fentanyl 2ml Vial) 100 mcg STK-MED ONCE .ROUTE ; Start 04/04/19 at 08:50; Stop 04/04/19 at 08:51; Status DC Midazolam HCl (Versed) 2 mg STK-MED ONCE .ROUTE ; Start 04/04/19 at 08:51; Stop 04/04/19 at 08:51; Status DC Ketamine HCl (Ketamine) 50 mg STK-MED ONCE .ROUTE ; Start 04/04/19 at 08:51; Stop 04/04/19 at 08:51; Status DC Propofol 20 ml @ As Directed STK-MED ONCE IV ; Start 04/04/19 at 08:53; Stop 04/04/19 at 08:53; Status DC Lidocaine HCl (Lidocaine Pf 2% Vial) 5 ml STK-MED ONCE .ROUTE ; Start 04/04/19 at 08:53; Stop 04/04/19 at 08:53; Status DC Midazolam HCl (Versed) 2 mg STK-MED ONCE .ROUTE ; Start 04/04/19 at 14:04; Stop 04/04/19 at 14:05; Status DC Propofol 20 ml @ As Directed STK-MED ONCE IV ; Start 04/04/19 at 14:04; Stop 04/04/19 at 14:05; Status DC Chloroprocaine HCl (Nesacaine 3% Mpf) 20 ml 1X ONCE IJ ; Start 04/04/19 at 14:45; Stop 04/04/19 at 14:46; Status DC Prochlorperazine Edisylate (Compazine) 10 mg PRN Q6HRS PRN IV NAUSEA/VOMITING Last administered on 04/04/19at 18:06; Start 04/04/19 at 18:00 Sumatriptan Succinate (Imitrex) 25 mg PRN Q2HR PRN PO MIGRAINE HEADACHE Last administered on 04/04/19at 18:40; Start 04/04/19 at 18:00 Pantoprazole Sodium (Protonix) 40 mg DAILYAC PO ; Start 04/06/19 at 07:30; Status UNV Active Scripts Active Zofran (Ondansetron Hcl) 4 Mg Tablet 1 Tab PO PRN Q6-8HRS Doxycycline Hyclate 100 Mg Tablet 1 Tab PO BID [place] (Sodium Chloride) 44 Ml [place] 1 Jacques NS PRN Q1HR PRN 28 Days Cetirizine Hcl 10 Mg Tablet 10 Mg PO PRN DAILY PRN 10 Days Fludrocortisone Acetate 0.1 Mg Tablet 0.1 Mg PO DAILY 30 Days Amitriptyline Hcl 25 Mg Tablet 50 Mg PO QHS 30 Days Reported Levothyroxine Sodium 100 Mcg Tablet 200 Mcg PO HS Novolog Flexpen (Insulin Aspart) 100 Unit/1 Ml Insuln.pen 1 Unit SQ TIDAC PER SLIDING SCALE Midodrine Hcl 10 Mg Tablet 10 Mg PO TID Basaglar Kwikpen U-100 (Insulin Glargine,Hum.rec.anlog) 100 Unit/1 Ml Insuln.pen 30 Unit SQ DAILY08 Lovastatin 10 Mg Tablet 10 Mg PO HS Gabapentin (Gabapentin) 300 Mg Capsule 600 Mg PO HS Vitals/I & O Vital Sign - Last 24 Hours 04/04/19 04/04/19 04/04/19 04/04/19 11:00 11:15 11:45 12:15 Pulse 85 84 88 85 Resp 17 17 17 17 B/P (MAP) 158/88 (111) 144/88 (106) 160/92 (114) 150/84 (106) Pulse Ox 93 94 95 94 O2 Delivery Room Air Room Air Room Air Room Air 04/04/19 04/04/19 04/04/19 04/04/19 12:16 13:00 13:30 15:21 Temp 98. 98.0 Pulse 85 86 Resp 16 B/P (MAP) 150/84 156/91 Pulse Ox 95 O2 Delivery Room Air Room Air Room Air 04/04/19 04/04/19 04/04/19 04/04/19 15:45 16:00 16:17 17:12 Temp 97.8 97.8 Pulse 91 87 87 Resp 18 18 B/P (MAP) 175/117 (136) 155/90 (111) 155/90 Pulse Ox 95 94 94 O2 Delivery Room Air Room Air 04/04/19 04/04/19 04/04/19 04/04/19 19:00 20:00 20:50 22:08 Temp 98.0 97.8 98.0 97.8 Pulse 94 94 98 Resp 18 16 B/P (MAP) 141/175 (164) 175/100 154/90 (111) Pulse Ox 93 94 O2 Delivery Room Air Room Air Room Air 04/05/19 04/05/19 04/05/19 04/05/19 03:00 05:11 07:00 08:00 Temp 97.9 97.7 97.9 97.7 Pulse 93 93 92 Resp 18 18 B/P (MAP) 155/87 (109) 155/87 161/96 (117) Pulse Ox 92 94 O2 Delivery Room Air Room Air Room Air O2 Flow Rate 2.0 04/05/19 04/05/19 09:32 09:33 Pulse 92 Resp 16 B/P (MAP) 161/96 O2 Delivery Room Air Intake and Output 04/04/19 04/04/19 04/05/19 15:00 23:00 07:00 Intake Total 200 ml 300 ml 0 ml Balance 200 ml 300 ml 0 ml PAT MCCOY MD Apr 05, 2019 10:46
[2019-04-05 10:47] VITALS: BP 152/82
[2019-04-05] MEDS ORDERED: PANTOPRAZOLE 40 MG TABLET.DR. PO SCH (11:30)
--- NOTE | 2019-04-05 11:31 | PDOC ---
PROGRESS NOTES Assessment Problems Medical Problems: (1) Elevated blood pressure reading without diagnosis of hypertension Status: Acute (2) Migraine headache Status: Acute (3) Nausea Status: Acute Worsening of chronic migraine headaches. Blurred vision, intermittent. Nausea. HTN. HLD. COPD. Chronic chest wall pain Note I saw her in October 2017 for headaches and dizziness, negative brain MRI, she was also here in May for headaches and dizziness, negative brain MRI. She says that I started her on a medication which did not work, and Dr. Mahajan has topiramate which cause blurred vision, which persists despite its discontinuation. I tried DHE yesterday which made the headache worse Repeat MRI and MRI studies negative Lumbar puncture positive for slightly elevated pressure, not enough to worry about the 9 intracranial hypertension, also elevated spinal fluid protein level, which is nonspecific in isolation Plan Topamax stopped, but she still complains of intermittent diplopia, not borne out on bedside examination Continue Metoprolol 25 mg daily. I told patient and her I have nothing else to offer therapeutically in the hospital. Additional testing could include the temporal artery biopsy ( r efuses temporal artery biopsy, and understands risks), which would be of low yield. I also talked about thoracic MRI study, but we would have to put her under sedation again and that could be done as an outpatient in an open MRI arranged by her primary physician. 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 Neither of those specialties are available in this hospital. Therefore I suggest discharge. Subjective Still has 10/10 headache, appears to be in no acute distress. Objective Vital Signs Date Time Temp Pulse Resp B/P (MAP) Pulse Ox O2 Delivery O2 Flow Rate FiO2 04/05/19 10:47 97.8 90 18 152/82 (105) 95 Room Air 97.8 04/05/19 08:00 2.0 Intake and Output 04/05/19 07:00 Intake Total 500 ml Balance 500 ml Intake Oral 300 ml IV Total 200 ml # Voids 1 PHYSICAL EXAM Alert. Oriented to time, place and person. PERRL. Fundi benign EOMI. CN: no focal findings. Muscle tone: normal. Muscle strength: 5/5 DTR: 2+ Plantar reflex: flexor Gait: not examined in bed. Sensory exam: no abnormal findings. No cerebellar signs elicited. Temporal arteries are pulsatile and nontender Review of Relevant I have reviewed the following items zurdo (where applicable) has been applied. Labs Laboratory Tests Test 04/03/19 11:32 04/03/19 16:29 04/03/19 21:24 04/04/19 03:55 Glucose (Fingerstick) 129 mg/dL (70-99) 135 mg/dL (70-99) 167 mg/dL (70-99) White Blood Count 5.3 x10^3/uL (4.0-11.0) Red Blood Count 3.68 x10^6/uL (3.50-5.40) Hemoglobin 10.2 g/dL (12.0-15.5) Hematocrit 31.1 % (36.0-47.0) Mean Corpuscular Volume 84 fL (79-100) Mean Corpuscular Hemoglobin 28 pg (25-35) Mean Corpuscular Hemoglobin Concent 33 g/dL (31-37) Red Cell Distribution Width 14.8 % (11.5-14.5) Platelet Count 182 x10^3/uL (140-400) Neutrophils (%) (Auto) 57 % (31-73) Lymphocytes (%) (Auto) 29 % (24-48) Monocytes (%) (Auto) 10 % (0-9) Eosinophils (%) (Auto) 4 % (0-3) Basophils (%) (Auto) 1 % (0-3) Neutrophils # (Auto) 3.0 x10^3/uL (1.8-7.7) Lymphocytes # (Auto) 1.5 x10^3/uL (1.0-4.8) Monocytes # (Auto) 0.5 x10^3/uL (0.0-1.1) Eosinophils # (Auto) 0.2 x10^3/uL (0.0-0.7) Basophils # (Auto) 0.0 x10^3/uL (0.0-0.2) Sodium Level 141 mmol/L (136-145) Potassium Level 3.4 mmol/L (3.5-5.1) Chloride Level 105 mmol/L (98-107) Carbon Dioxide Level 29 mmol/L (21-32) Anion Gap 7 (6-14) Blood Urea Nitrogen 14 mg/dL (7-20) Creatinine 0.6 mg/dL (0.6-1.0) Estimated GFR (Cockcroft-Gault) 103.4 Glucose Level 154 mg/dL (70-99) Calcium Level 8.3 mg/dL (8.5-10.1) Test 04/04/19 07:28 04/04/19 11:13 04/04/19 15:20 04/04/19 16:23 Glucose (Fingerstick) 112 mg/dL (70-99) 101 mg/dL (70-99) 130 mg/dL (70-99) CSF Tube Number 3 CSF Color Colorless CSF Clarity Clear CSF WBC 3 /cmm (Not Established) CSF RBC 7 /cmm (Not Established) CSF Glucose 71 mg/dL (37-70) CSF Total Protein 74.7 mg/dL (15.0-45.0) Test 04/04/19 20:26 04/05/19 03:15 04/05/19 07:35 Glucose (Fingerstick) 124 mg/dL (70-99) 104 mg/dL (70-99) White Blood Count 4.8 x10^3/uL (4.0-11.0) Red Blood Count 3.71 x10^6/uL (3.50-5.40) Hemoglobin 10.2 g/dL (12.0-15.5) Hematocrit 31.3 % (36.0-47.0) Mean Corpuscular Volume 84 fL (79-100) Mean Corpuscular Hemoglobin 28 pg (25-35) Mean Corpuscular Hemoglobin Concent 33 g/dL (31-37) Red Cell Distribution Width 14.6 % (11.5-14.5) Platelet Count 198 x10^3/uL (140-400) Neutrophils (%) (Auto) 62 % (31-73) Lymphocytes (%) (Auto) 26 % (24-48) Monocytes (%) (Auto) 7 % (0-9) Eosinophils (%) (Auto) 4 % (0-3) Basophils (%) (Auto) 1 % (0-3) Neutrophils # (Auto) 3.0 x10^3/uL (1.8-7.7) Lymphocytes # (Auto) 1.3 x10^3/uL (1.0-4.8) Monocytes # (Auto) 0.3 x10^3/uL (0.0-1.1) Eosinophils # (Auto) 0.2 x10^3/uL (0.0-0.7) Basophils # (Auto) 0.0 x10^3/uL (0.0-0.2) Sodium Level 141 mmol/L (136-145) Potassium Level 3.5 mmol/L (3.5-5.1) Chloride Level 104 mmol/L (98-107) Carbon Dioxide Level 28 mmol/L (21-32) Anion Gap 9 (6-14) Blood Urea Nitrogen 13 mg/dL (7-20) Creatinine 0.6 mg/dL (0.6-1.0) Estimated GFR (Cockcroft-Gault) 103.4 Glucose Level 123 mg/dL (70-99) Calcium Level 8.6 mg/dL (8.5-10.1) Laboratory Tests Test 04/04/19 15:20 04/04/19 16:23 04/04/19 20:26 04/05/19 03:15 CSF Tube Number 3 CSF Color Colorless CSF Clarity Clear CSF WBC 3 /cmm (Not Established) CSF RBC 7 /cmm (Not Established) CSF Glucose 71 mg/dL (37-70) CSF Total Protein 74.7 mg/dL (15.0-45.0) Glucose (Fingerstick) 130 mg/dL (70-99) 124 mg/dL (70-99) White Blood Count 4.8 x10^3/uL (4.0-11.0) Red Blood Count 3.71 x10^6/uL (3.50-5.40) Hemoglobin 10.2 g/dL (12.0-15.5) Hematocrit 31.3 % (36.0-47.0) Mean Corpuscular Volume 84 fL (79-100) Mean Corpuscular Hemoglobin 28 pg (25-35) Mean Corpuscular Hemoglobin Concent 33 g/dL (31-37) Red Cell Distribution Width 14.6 % (11.5-14.5) Platelet Count 198 x10^3/uL (140-400) Neutrophils (%) (Auto) 62 % (31-73) Lymphocytes (%) (Auto) 26 % (24-48) Monocytes (%) (Auto) 7 % (0-9) Eosinophils (%) (Auto) 4 % (0-3) Basophils (%) (Auto) 1 % (0-3) Neutrophils # (Auto) 3.0 x10^3/uL (1.8-7.7) Lymphocytes # (Auto) 1.3 x10^3/uL (1.0-4.8) Monocytes # (Auto) 0.3 x10^3/uL (0.0-1.1) Eosinophils # (Auto) 0.2 x10^3/uL (0.0-0.7) Basophils # (Auto) 0.0 x10^3/uL (0.0-0.2) Sodium Level 141 mmol/L (136-145) Potassium Level 3.5 mmol/L (3.5-5.1) Chloride Level 104 mmol/L (98-107) Carbon Dioxide Level 28 mmol/L (21-32) Anion Gap 9 (6-14) Blood Urea Nitrogen 13 mg/dL (7-20) Creatinine 0.6 mg/dL (0.6-1.0) Estimated GFR (Cockcroft-Gault) 103.4 Glucose Level 123 mg/dL (70-99) Calcium Level 8.6 mg/dL (8.5-10.1) Test 04/05/19 07:35 Glucose (Fingerstick) 104 mg/dL (70-99) Medications Current Medications Prochlorperazine Edisylate (Compazine) 10 mg 1X ONCE IM Last administered on 03/29/19at 17:42; Start 03/29/19 at 17:30; Stop 03/29/19 at 17:31; Status DC Fentanyl Citrate (Fentanyl 2ml Vial) 50 mcg 1X ONCE IM Last administered on 03/29/19at 17:42; Start 03/29/19 at 17:30; Stop 03/29/19 at 17:31; Status DC Ondansetron HCl (Zofran) 4 mg PRN Q8HRS PRN IV NAUSEA/VOMITING; Start 03/29/19 at 18:15; Stop 03/29/19 at 18:56; Status DC Fentanyl Citrate (Fentanyl 2ml Vial) 50 mcg Q2HR PRN IV PAIN Last administered on 03/29/19at 20:55; Start 03/29/19 at 18:15; Stop 03/29/19 at 22:00; Status DC Amitriptyline HCl (Elavil) 50 mg QHS PO Last administered on 04/04/19at 22:14; Start 03/29/19 at 21:00 Cetirizine HCl (ZyrTEC) 10 mg PRN DAILY PRN PO ALLERGIES/congestion Last administered on 04/01/19at 08:49; Start 03/29/19 at 18:15 Fludrocortisone Acetate (Florinef) 0.1 mg DAILY PO Last administered on 04/05/19at 09:33; Start 03/30/19 at 09:00 Gabapentin (Neurontin) 600 mg HS PO Last administered on 04/04/19at 22:13; Start 03/29/19 at 21:00 Levothyroxine Sodium (Synthroid) 100 mcg HS PO ; Start 03/29/19 at 21:00; Stop 03/29/19 at 20:41; Status DC Sodium Chloride (Saline Mist Nasal) 1 jacques PRN Q1HR PRN NS NASAL CONGESTION; Start 03/29/19 at 18:15 Non-Formulary Medication (Insulin Aspart (Novolog Flexpen)) 1 unit TIDAC SQ ; Start 03/30/19 at 07:30; Status UNV Insulin Glargine (Lantus Syringe) 30 unit DAILY08 SQ ; Start 03/30/19 at 08:00; Stop 03/30/19 at 10:01; Status DC Non-Formulary Medication (Lovastatin ) 10 mg HS PO ; Start 03/29/19 at 21:00; Stop 04/02/19 at 09:32; Status DC Midodrine (Proamatine) 10 mg [id number] PO ; Start 03/30/19 at 07:00 Ondansetron HCl (Zofran Odt) 4 mg PRN Q8HRS PRN PO NAUSEA/VOMITING 1ST CHOICE Last administered on 04/04/19at 22:13; Start 03/29/19 at 18:30 Sodium Chloride (Normal Saline Flush) 3 ml QSHIFT PRN IV AFTER MEDS AND BLOOD DRAWS; Start 03/29/19 at 18:45 Sodium Chloride 1,000 ml @ 100 mls/hr Q10H IV Last administered on 04/01/19at 03:03; Start 03/29/19 at 18:45; Stop 04/02/19 at 12:58; Status DC Ondansetron HCl (Zofran) 4 mg PRN Q4HRS PRN IV NAUSEA/VOMITING; Start 03/29/19 at 18:45 Zolpidem Tartrate (Ambien) 5 mg PRN QHS PRN PO INSOMNIA; Start 03/29/19 at 18:45 Acetaminophen (Tylenol) 650 mg PRN Q4HRS PRN PO TEMP OVER 100.4F OR MILD PAIN Last administered on 04/02/19at 20:34; Start 03/29/19 at 18:45 Al Hydroxide/Mg Hydroxide (Mylanta Plus Xs) 30 ml PRN DAILY PRN PO HEARTBURN / GAS; Start 03/29/19 at 18:45 Clonidine HCl (Catapres) 0.1 mg PRN Q6HRS PRN PO SBP>160 OR DBP>90; Start 03/29/19 at 18:45 Docusate Sodium (Colace) 100 mg PRN BID PRN PO CONSTIPATION; Start 03/29/19 at 18:45 Albuterol Sulfate (Ventolin Neb Soln) 2.5 mg PRN Q4HRS PRN NEB SHORTNESS OF BREATH; Start 03/29/19 at 18:45 Lorazepam (Ativan) 0.5 mg PRN Q4HRS PRN PO ANXIETY / AGITATION; Start 03/29/19 at 18:45 Lorazepam (Ativan Inj) 2 mg PRN Q4HRS PRN IV ANXIETY / AGITATION; Start 03/29/19 at 18:45 Enoxaparin Sodium (Lovenox 40mg Syringe) 40 mg DAILY SQ Last administered on 04/05/19at 09:32; Start 03/30/19 at 09:00 Hydralazine HCl (Apresoline Inj) 10 mg PRN Q4HRS PRN IVP HYPERTENSION Last administered on 04/04/19at 20:50; Start 03/29/19 at 19:00 Levothyroxine Sodium (Synthroid) 200 mcg HS PO Last administered on 04/04/19at 22:13; Start 03/29/19 at 21:00 Insulin Human Lispro (HumaLOG) for blood glucose > 180, g... TIDWMEALS SQ ; Start 03/30/19 at 08:00; Stop 03/30/19 at 10:01; Status DC Dextrose (Dextrose 50%-Water Syringe) 12.5 gm PRN Q15MIN PRN IV SEE COMMENTS; Start 03/29/19 at 23:00 Non-Formulary Medication 1 ea TIDAC SQ Last administered on 04/01/19 12:05; Start 03/30/19 at 11:30 Non-Formulary Medication 1 ea DAILY SQ Last administered on 04/05/19at 09:42; Start 03/31/19 at 09:00 Metoprolol Succinate (Toprol Xl) 25 mg 1X ONCE PO Last administered on 03/30/19at 12:24; Start 03/30/19 at 12:00; Stop 03/30/19 at 12:05; Status DC Metoprolol Succinate (Toprol Xl) 25 mg DAILY PO Last administered on 04/05/19 09:32; Start 03/31/19 at 09:00 Topiramate (Topamax) 25 mg BID PO Last administered on 04/01/19at 08:49; Start 03/30/19 at 21:00; Stop 04/02/19 at 17:24; Status DC Lorazepam (Ativan) 2 mg ONCE PRN PO ANXIETY / AGITATION; Start 04/02/19 at 17:45 Acetaminophen/ Hydrocodone Bitart (Lortab 5/325) 1 tab PRN Q6HRS PRN PO MODERATE PAIN 4-6 Last administered on 04/05/19at 09:33; Start 04/02/19 at 23:15 Influenza Virus Vaccine Quadrival (Afluria Quad 2019-20 (3yr Up) Syringe) 0.5 ml ONCE ONCE VAX IM ; Start 04/03/19 at 09:30; Stop 04/03/19 at 09:31; Status DC Dihydroergotamine Mesylate 1 mg/ Sodium Chloride 51 ml @ 102 mls/hr 1X ONCE IV Last administered on 04/03/19at 12:57; Start 04/03/19 at 12:30; Stop 04/03/19 at 12:59; Status DC Metoclopramide HCl (Reglan) 10 mg 1X ONCE PO Last administered on 04/03/19at 12:27; Start 04/03/19 at 12:20; Stop 04/03/19 at 12:21; Status DC Ringer's Solution 1,000 ml @ 50 mls/hr Q20H IV ; Start 04/04/19 at 07:00; Stop 04/04/19 at 18:59; Status DC Fentanyl Citrate (Fentanyl 2ml Vial) 100 mcg STK-MED ONCE .ROUTE ; Start 04/04/19 at 08:50; Stop 04/04/19 at 08:51; Status DC Midazolam HCl (Versed) 2 mg STK-MED ONCE .ROUTE ; Start 04/04/19 at 08:51; Stop 04/04/19 at 08:51; Status DC Ketamine HCl (Ketamine) 50 mg STK-MED ONCE .ROUTE ; Start 04/04/19 at 08:51; Stop 04/04/19 at 08:51; Status DC Propofol 20 ml @ As Directed STK-MED ONCE IV ; Start 04/04/19 at 08:53; Stop 04/04/19 at 08:53; Status DC Lidocaine HCl (Lidocaine Pf 2% Vial) 5 ml STK-MED ONCE .ROUTE ; Start 04/04/19 at 08:53; Stop 04/04/19 at 08:53; Status DC Midazolam HCl (Versed) 2 mg STK-MED ONCE .ROUTE ; Start 04/04/19 at 14:04; Stop 04/04/19 at 14:05; Status DC Propofol 20 ml @ As Directed STK-MED ONCE IV ; Start 04/04/19 at 14:04; Stop 04/04/19 at 14:05; Status DC Chloroprocaine HCl (Nesacaine 3% Mpf) 20 ml 1X ONCE IJ ; Start 04/04/19 at 14:45; Stop 04/04/19 at 14:46; Status DC Prochlorperazine Edisylate (Compazine) 10 mg PRN Q6HRS PRN IV NAUSEA/VOMITING Last administered on 04/04/19at 18:06; Start 04/04/19 at 18:00 Sumatriptan Succinate (Imitrex) 25 mg PRN Q2HR PRN PO MIGRAINE HEADACHE Last administered on 04/04/19at 18:40; Start 04/04/19 at 18:00 Pantoprazole Sodium (Protonix) 40 mg DAILYAC PO ; Start 04/05/19 at 11:30 Active Scripts Active Zofran (Ondansetron Hcl) 4 Mg Tablet 1 Tab PO PRN Q6-8HRS Doxycycline Hyclate 100 Mg Tablet 1 Tab PO BID [place] (Sodium Chloride) 44 Ml [place] 1 Jacques NS PRN Q1HR PRN 28 Days Cetirizine Hcl 10 Mg Tablet 10 Mg PO PRN DAILY PRN 10 Days Fludrocortisone Acetate 0.1 Mg Tablet 0.1 Mg PO DAILY 30 Days Amitriptyline Hcl 25 Mg Tablet 50 Mg PO QHS 30 Days Reported Levothyroxine Sodium 100 Mcg Tablet 200 Mcg PO HS Novolog Flexpen (Insulin Aspart) 100 Unit/1 Ml Insuln.pen 1 Unit SQ TIDAC PER SLIDING SCALE Midodrine Hcl 10 Mg Tablet 10 Mg PO TID Basaglar Kwikpen U-100 (Insulin Glargine,Hum.rec.anlog) 100 Unit/1 Ml Insuln.pen 30 Unit SQ DAILY08 Lovastatin 10 Mg Tablet 10 Mg PO HS Gabapentin (Gabapentin) 300 Mg Capsule 600 Mg PO HS Vitals/I & O Vital Sign - Last 24 Hours 04/04/19 04/04/19 04/04/19 04/04/19 11:45 12:15 12:16 13:00 Pulse 88 85 85 Resp 17 17 B/P (MAP) 160/92 (114) 150/84 (106) 150/84 Pulse Ox 95 94 O2 Delivery Room Air Room Air Room Air 04/04/19 04/04/19 04/04/19 04/04/19 13:30 15:21 15:45 16:00 Temp 98. 97.8 98.0 97.8 Pulse 86 91 87 Resp 16 18 18 B/P (MAP) 156/91 175/117 (136) 155/90 (111) Pulse Ox 95 95 94 O2 Delivery Room Air Room Air Room Air Room Air 04/04/19 04/04/19 04/04/19 04/04/19 16:17 17:12 19:00 20:00 Temp 98.0 98.0 Pulse 87 94 Resp 18 B/P (MAP) 155/90 141/175 (164) Pulse Ox 94 93 O2 Delivery Room Air Room Air 04/04/19 04/04/19 04/05/19 04/05/19 20:50 22:08 03:00 05:11 Temp 97.8 97.9 97.8 97.9 Pulse 94 98 93 93 Resp 16 18 B/P (MAP) 175/100 154/90 (111) 155/87 (109) 155/87 Pulse Ox 94 92 O2 Delivery Room Air Room Air 04/05/19 04/05/19 04/05/19 04/05/19 07:00 08:00 09:32 09:33 Temp 97.7 97.7 Pulse 92 92 Resp 18 16 B/P (MAP) 161/96 (117) 161/96 Pulse Ox 94 O2 Delivery Room Air Room Air Room Air O2 Flow Rate 2.0 04/05/19 10:47 Temp 97.8 97.8 Pulse 90 Resp 18 B/P (MAP) 152/82 (105) Pulse Ox 95 O2 Delivery Room Air Intake and Output 04/04/19 04/04/19 04/05/19 15:00 23:00 07:00 Intake Total 200 ml 300 ml 0 ml Balance 200 ml 300 ml 0 ml Images ANGIOGRAPHY BRAIN WO CONTRAST, BRAIN W/O CONTRAST History: Persistent headaches. Diplopia. Technique: Multiplanar multisequence MRI of the brain and without contrast. 3-D [id number] MR angiography was performed of the brain. 3-D reconstructions were performed. Determination of any degree of stenosis is based on NASCET criteria. Comparison: CT March 29, 2019. Brain MRI April 08, 2019 and November 08, 2017 Findings: MRI brain: No acute infarct. No intracranial hemorrhage. No mass effect. No hydrocephalus. Extra-axial spaces are unremarkable. Several foci of T2/FLAIR hyperintensities within the hemispheric white matter, unchanged compared to prior. Imaged orbits are unremarkable. Imaged paranasal sinuses and mastoid air cells are clear. MRA head: Internal carotid arteries: No stenosis, occlusion or aneurysm. Middle cerebral arteries: No stenosis, occlusion or aneurysm. Anterior cerebral arteries: No stenosis, occlusion or aneurysm. Trifurcation. Posterior cerebral arteries: No stenosis, occlusion or aneurysm. Basilar artery: No stenosis, occlusion or aneurysm. Vertebral arteries: No stenosis, occlusion or aneurysm. Impression: 1. No acute intracranial abnormality. 2. No intracranial arterial stenosis or occlusion. 3. Mild nonspecific white matter changes, most often due to chronic microvascular ischemia, unchanged. LUMBAR PUNCTURE History: Intractable headache Comparison/Correlation: None Findings: Risks and benefits of fluoroscopically guided lumbar puncture were discussed with the patient and informed consent was obtained. A total of 7 fluoroscopic images were acquired. Anesthesiologist was present and the patient was sedated for this exam. The patient was placed in the prone MACEDONIAN position. Cleansing was ChloraPrep was performed after determination of the site of needle placement at the L5-S1 level. Sterile drape was placed. A total of 7 cc chloroprocaine was administered at the anticipated site of needle placement with a 25-gauge needle and then more deeply directed towards the thecal sac utilizing a 20-gauge needle. 20-gauge spinal needle was then placed into the thecal sac utilizing an interlaminar approach. The CSF flow was brisk. Opening pressure of 20.5 mmHg is noted with the patient in the left lateral decubitus position. A total of 18.5 cc clear CSF was withdrawn. The patient noted procedure well without immediate complications. Impression: Successful lumbar puncture with withdrawal of 18.5 cc clear CSF. Specimens were provided to the patient's valverde for submission to the lab if desired. Opening pressures at the upper limit of normal. LANA ARAYA MD Apr 05, 2019 11:31
[2019-04-05 15:00] VITALS: BP 123/71
--- NOTE | 2019-04-05 15:14 | NUR ---
SW following for discharge planning. Chart reviewed, discussed with RN. Pt is likely discharging with self care if nothing new with GI. RN advised no SW needs. SW will continue to follow should any discharge needs arise.
[2019-04-05 17:04] VITALS: BP 132/81
--- NOTE | 2019-04-05 18:02 | NUR ---
Discharge Note: TAYLOR SARAVIA [address] [place] [address] Discharge instructions and discharge home medications reviewed with Patient and a copy given. All questions have been answered and understanding verbalized. The following instructions and handouts were given: migraines Discontinued lines and drains: peripheral line. Patient discharged to Home or Self Care with Family Member via Wheelchair
== END 2019-04-05 18:46 | disposition home or self-care (01) | DRG 102 ==
LOC: ER 16:59 → 5 SOUTH 19:17
PROVIDERS: ADMIT Family Medicine; ATTEND Family Medicine
PROC: 009U3ZX Drainage of Spinal Canal, Percutaneous Approach, Diagnostic (ICD-10-PCS; principal; 2019-04-04)
DX: G43.909 Migraine, unspecified, not intractable, without status migrainosus (principal); E43 Unspecified severe protein-calorie malnutrition; Z68.24 Body mass index [BMI] 24.0-24.9, adult; D64.9 Anemia, unspecified; E78.00 Pure hypercholesterolemia, unspecified; E78.5 Hyperlipidemia, unspecified; E89.0 Postprocedural hypothyroidism; I12.9 Hypertensive chronic kidney disease with stage 1 through stage 4 chronic kidney disease, or unspecified chronic kidney disease; I95.1 Orthostatic hypotension; J44.9 Chronic obstructive pulmonary disease, unspecified; K21.9 Gastro-esophageal reflux disease without esophagitis; M31.6 Other giant cell arteritis; N18.9 Chronic kidney disease, unspecified; Z79.4 Long term (current) use of insulin; Z79.899 Other long term (current) drug therapy; Z82.49 Family history of ischemic heart disease and other diseases of the circulatory system; Z83.2 Family history of diseases of the blood and blood-forming organs and certain disorders involving the immune mechanism; Z82.61 Family history of arthritis; Z83.3 Family history of diabetes mellitus; Z86.73 Personal history of transient ischemic attack (TIA), and cerebral infarction without residual deficits; G89.29 Other chronic pain; M19.90 Unspecified osteoarthritis, unspecified site; R07.89 Other chest pain; E11.22 Type 2 diabetes mellitus with diabetic chronic kidney disease; E11.40 Type 2 diabetes mellitus with diabetic neuropathy, unspecified
CPT/HCPCS: 36415; 62270; 70544; 70551; 80048; 80053; 80307; 82607; 82945; 82962; 83540; 83550; 84157; 85025; 85045; 85651; 86038; 87071; 87075; 89051; 94760; 96372; J0360; J0780; J1110; J1650; J1815; J2001; J2250; J2704; J3010; J7030; J8597; Q0162; 99285-25; G0378

== ENCOUNTER 2019-05-22 09:52 | Observation (INO) | payer OTHER ==
[~2019-05-22] VITALS: Ht 175.3 cm; Wt 73.6 kg
[~2019-05-22 09:52] MED LIST changes: +CLOP75TA PO; +HYOS0.12 PO; +MECL-75 PO; -MECL25TA3 PO
[2019-05-22 10:37] LABS: BASO % 1 % (0-3); EOS # 0.1 x10^3/uL (0.0-0.7); EOS % 2 % (0-3); HEMATOCRIT 37.8 % (36.0-47.0); HEMOGLOBIN 12.2 g/dL (12.0-15.5); LYMPH # 1.6 x10^3/uL (1.0-4.8); LYMPH % 32 % (24-48); MEAN CORPUSCULAR HEMOGLOBIN 26 pg (25-35); MEAN CORPUSCULAR HGB CONC 32 g/dL (31-37); MEAN CORPUSCULAR VOLUME 82 fL (79-100); MONO # 0.5 x10^3/uL (0.0-1.1); MONO % 10 % (0-9); NEUT # 2.8 x10^3/uL (1.8-7.7); NEUT % 55 % (31-73); PLATELET COUNT 284 x10^3/uL (140-400); RED BLOOD COUNT 4.63 x10^6/uL (3.50-5.40); WHITE BLOOD COUNT 5.1 x10^3/uL (4.0-11.0)
[2019-05-22 10:45] LABS: PROTHROMBIN TIME PATIENT 13.7 SEC (11.7-14.0)
--- NOTE | 2019-05-22 10:49 | EKG ---
[facility] [address] [place] [address] Test Date: 2019-05-22 Test Time: 10:06:33 Pat Name: TAYLOR SARAVIA Department: Room: Gender: F Circuit [employer]ider: : 1960 Requested By: PAXTON RATLIFF Order Number: [id number] Reading MD: Measurements Intervals [place] Rate: 93 P: 38 MS: 170 QRS: -41 QRSD: 74 T: 18 QT: 384 QTc: 480 Interpretive Statements SINUS RHYTHM ABNORMAL LEFT AXIS DEVIATION QRS(T) CONTOUR ABNORMALITY CONSISTENT WITH INFERIOR INFARCT AGE UNDETERMINED ABNORMAL ECG RI6.01 No previous ECG available for comparison
[2019-05-22 10:50] LABS: CALCIUM 9.2 mg/dL (8.5-10.1); CREATININE 0.6 mg/dL (0.6-1.0); POTASSIUM 3.1 mmol/L (3.5-5.1)
[2019-05-22 10:56] LABS: ALBUMIN/GLOBULIN RATIO 0.8 (1.0-1.7); MAGNESIUM 1.6 mg/dL (1.8-2.4); TOTAL BILIRUBIN 0.3 mg/dL (0.2-1.0)
--- NOTE | 2019-05-22 11:00 | RAD ---
Single AP view of the chest. Comparison: 04/24/2019. Indication: Syncope and fall Findings: The heart is enlarged but stable. There is no pneumothorax or effusion. No air space or interstitial disease. Impression: 1. No acute cardiopulmonary process. Electronically signed by: Reji Lawrence MD (05/22/2019 10:57 AM) [id number]
--- NOTE | 2019-05-22 11:10 | RAD ---
HIP LEFT 2V WITH PELVIS History: Syncope, fall Comparison: December 30, 2018 Findings: AP view the pelvis and 2 additional views of the left hip are submitted. There is vascular calcification in the groin regions bilaterally. No acute fracture or dislocation is identified by radiographs. Impression: 1. No acute osseous abnormality is identified by radiographs. Electronically signed by: Azael Gomez MD (05/22/2019 11:07 AM) [id number]
--- NOTE | 2019-05-22 11:31 | RAD ---
CT HEAD WO CONTRAST History: Fall, syncope Comparison: None. Technique: Noncontrast CT imaging was performed of the head. Exposure: One or more of the following individualized dose reduction techniques were utilized for this examination: 1. Automated exposure control 2. Adjustment of the mA and/or kV according to patient size 3. Use of iterative reconstruction technique. Findings: No acute extra-axial or parenchymal hemorrhage is identified. There is no significant intra-axial mass effect, midline shift, or extra-axial fluid collection. The soto-white differentiation of the major vascular territories is preserved. The ventricles, sulci, and cisterns are within normal limits in size and configuration. The mastoid air cells and the visualized paranasal sinuses are aerated. No acute calvarial abnormality is identified. Impression: 1. No acute intracranial abnormality is identified. Electronically signed by: Azael Gomez MD (05/22/2019 11:28 AM) [id number]
[2019-05-22] MEDS ORDERED: IV NORMAL SALINE 1000ML BAG 1,000 ML IV ONE (12:00)
[2019-05-22] MEDS ORDERED: POTASSIUM CHLORIDE 20 MEQ TABLET.ER. PO ONE (12:00)
[2019-05-22] MEDS ORDERED: fentaNYL PF VIAL 100 MCG/2 ML VIAL IVP ONE (12:30)
[2019-05-22] MEDS ORDERED: POTASSIUM BICARB 20 MEQ EFFERVESCENT TABLET. PO ONE (12:45)
--- NOTE | 2019-05-22 13:05 | PHYS DOC ---
Past Medical History Past Medical History: CVA, Diabetes-Type I, High Cholesterol, Hypothyroid, Hypotension, Stroke, Other Additional Past Medical Histor: NEUROPATHY, ORTHOSTATIC HYPOTENSION Past Surgical History: Other Additional Past Surgical Histo: L BREAST L FOOT R KNEE, THYROIDECTOMY Alcohol Use: None Drug Use: None Adult General Chief Complaint Chief Complaint: MECHANICAL FALL HPI HPI Patient is a 59 year old female with history of orthostatic hypotension, dyslipidemia, hypothyroidism, CVA and left-sided weakness, diabetes mellitus, neuropathy who presents via EMS with complaint of fall and syncope. Patient states she had a recent CVA with left-sided weakness and was discharged from rehabilitation 3 days ago and had 1 fall the same day of discharge from [facility] and another fall last night after she tried to get out of the wheelchair and felt dizzy and lost her consciousness and had a fall and injured her left hip. The patient states she was not able to ambulate today because of the pain of her hip and complaining of generalized weakness after her syncope. Patient denies new focal neuro deficit, fever and chills, chest pain, shortness of breath, nausea and vomiting. Review of Systems Review of Systems Constitutional: Denies fever or chills [] Eyes: Denies change in visual acuity, redness, or eye pain [] HENT: Denies nasal congestion or sore throat [] Respiratory: Denies cough or shortness of breath [] Cardiovascular: No additional information not addressed in HPI [] GI: Denies abdominal pain, nausea, vomiting, bloody stools or diarrhea [] : Denies dysuria or hematuria [] Musculoskeletal: Denies back pain or joint pain [] Integument: Denies rash or skin lesions [] Neurologic: Denies headache, focal weakness or sensory changes [] Endocrine: Denies polyuria or polydipsia [] All other systems were reviewed and found to be within normal limits, except as documented in this note. Allergies Allergies Allergies Coded Allergies Type Severity Reaction Last Updated Verified atorvastatin Allergy Severe throat swells 10/13/18 Yes ciprofloxacin Allergy Severe "THROAT CLOSES UP" ANAPHYLAXIS 10/13/18 Yes hydroxyzine Allergy Severe DIZZINESS, "I FEEL LIKE IM DRUNK" 10/13/18 Yes ketorolac Allergy Severe 04/04/19 Yes lidocaine Allergy Severe THROAT SWELLING 02/28/19 Yes raspberry Allergy Severe CHOKING SENSATION IN THROAT 10/13/18 Yes tramadol Allergy Severe VOMITING 10/13/18 Yes amoxicillin Allergy Intermediate 10/13/18 Yes aspirin Allergy Intermediate 10/13/18 Yes cephalexin Allergy Intermediate 10/13/18 Yes codeine Allergy Intermediate 10/13/18 Yes ibuprofen Allergy Intermediate 10/13/18 Yes morphine Allergy Intermediate 10/13/18 Yes simvastatin Allergy Intermediate 10/13/18 Yes sucralose Allergy Intermediate 11/09/18 Yes pregabalin Allergy Mild vomiting 10/13/18 Yes Physical Exam Physical Exam Constitutional: Well developed, well nourished, no acute distress, non-toxic appearance. [] HENT: Normocephalic, atraumatic, bilateral external ears normal, oropharynx moist, no oral exudates, nose normal. [] Eyes: PERRLA, EOMI, conjunctiva normal, no discharge. [] Neck: Normal range of motion, no tenderness, supple, no stridor. [] Cardiovascular:Heart rate regular rhythm, no murmur [] Lungs & Thorax: Bilateral breath sounds clear to auscultation [] Abdomen: Bowel sounds normal, soft, no tenderness, no masses, no pulsatile masses. [] Skin: Warm, dry, no erythema, no rash. [] Back: No tenderness, no CVA tenderness. [] Extremities: No tenderness, no cyanosis, no clubbing, ROM intact, no edema. [] Neurologic: Alert and oriented X 3, normal motor function, normal sensory function, no focal deficits noted. [] Psychologic: Affect normal, judgement normal, mood normal. [] Current Patient Data Vital Signs Vital Signs Date Time Temp Pulse Resp B/P (MAP) Pulse Ox O2 Delivery O2 Flow Rate FiO2 05/22/19 11:39 88 16 96 05/22/19 09:59 98.0 201/102 (135) Room Air 98.0 Lab Values Laboratory Tests Test 05/22/19 10:15 White Blood Count 5.1 x10^3/uL (4.0-11.0) Red Blood Count 4.63 x10^6/uL (3.50-5.40) Hemoglobin 12.2 g/dL (12.0-15.5) Hematocrit 37.8 % (36.0-47.0) Mean Corpuscular Volume 82 fL (79-100) Mean Corpuscular Hemoglobin 26 pg (25-35) Mean Corpuscular Hemoglobin Concent 32 g/dL (31-37) Red Cell Distribution Width 14.0 % (11.5-14.5) Platelet Count 284 x10^3/uL (140-400) Neutrophils (%) (Auto) 55 % (31-73) Lymphocytes (%) (Auto) 32 % (24-48) Monocytes (%) (Auto) 10 % (0-9) H Eosinophils (%) (Auto) 2 % (0-3) Basophils (%) (Auto) 1 % (0-3) Neutrophils # (Auto) 2.8 x10^3/uL (1.8-7.7) Lymphocytes # (Auto) 1.6 x10^3/uL (1.0-4.8) Monocytes # (Auto) 0.5 x10^3/uL (0.0-1.1) Eosinophils # (Auto) 0.1 x10^3/uL (0.0-0.7) Basophils # (Auto) 0.0 x10^3/uL (0.0-0.2) Prothrombin Time 13.7 SEC (11.7-14.0) Prothrombin Time INR 1.1 (0.8-1.1) Sodium Level 141 mmol/L (136-145) Potassium Level 3.1 mmol/L (3.5-5.1) L Chloride Level 101 mmol/L (98-107) Carbon Dioxide Level 32 mmol/L (21-32) Anion Gap 8 (6-14) Blood Urea Nitrogen 15 mg/dL (7-20) Creatinine 0.6 mg/dL (0.6-1.0) Estimated GFR (Cockcroft-Gault) 103.0 BUN/Creatinine Ratio 25 (6-20) H Glucose Level 189 mg/dL (70-99) H Calcium Level 9.2 mg/dL (8.5-10.1) Magnesium Level 1.6 mg/dL (1.8-2.4) L Total Bilirubin 0.3 mg/dL (0.2-1.0) Aspartate Amino Transferase (AST) 31 U/L (15-37) Alanine Aminotransferase (ALT) 26 U/L (14-59) Alkaline Phosphatase 243 U/L (46-116) H Creatine Kinase 241 U/L (26-192) H Troponin I Quantitative < 0.017 ng/mL (0.000-0.055) GT-Ptw-T-Type Natriuretic Peptide 560 pg/mL (0-124) H Total Protein 7.0 g/dL (6.4-8.2) Albumin 3.0 g/dL (3.4-5.0) L Albumin/Globulin Ratio 0.8 (1.0-1.7) L Lipase 113 U/L (73-393) Laboratory Tests 05/22/19 10:15 Laboratory Tests 05/22/19 10:15 EKG EKG EKG interpreted by me. EKG at 1006 showed sinus rhythm at rate of 93, abnormal left axis deviation, poor R-wave progress in anteroseptal leads, nitroglycerin T-wave elevation. Radiology/Procedures Radiology/Procedures [facility] [address] [place] [address] IMAGING REPORT Signed PATIENT: TAYLOR SARAVIA RACCOUNT: [id number] : 1960 LOCATION: ER AGE: 59 SEX: F EXAM STATUS: REG ER ORD. PHYSICIAN: PAXTON RATLIFF MD REASON: syncope and fall PROCEDURE: CT HEAD WO CONTRAST CT HEAD WO CONTRAST History: Fall, syncope Comparison: None. Technique: Noncontrast CT imaging was performed of the head. Exposure: One or more of the following individualized dose reduction techniques were utilized for this examination: 1. Automated exposure control 2. Adjustment of the mA and/or kV according to patient size 3. Use of iterative reconstruction technique. Findings: No acute extra-axial or parenchymal hemorrhage is identified. There is no significant intra-axial mass effect, midline shift, or extra-axial fluid collection. The soto-white differentiation of the major vascular territories is preserved. The ventricles, sulci, and cisterns are within normal limits in size and configuration. The mastoid air cells and the visualized paranasal sinuses are aerated. No acute calvarial abnormality is identified. Impression: 1. No acute intracranial abnormality is identified. Electronically signed by: Mary Gomez MD (05/22/2019 11:28 AM) [id number] DICTATED and SIGNED BY: MARY GOMEZ MD DATE: 05/22/19 1128 [facility] [address] [place] [address] IMAGING REPORT Signed PATIENT: TAYLOR SARAVIAUNT: [id number] : 1960 LOCATION: ER AGE: 59 SEX: F EXAM STATUS: REG ER ORD. PHYSICIAN: PAXTON RATLIFF MD REASON: syncope and fall PROCEDURE: PORTABLE CHEST 1V Single AP view of the chest. Comparison: 04/24/2019. Indication: Syncope and fall Findings: The heart is enlarged but stable. There is no pneumothorax or effusion. No air space or interstitial disease. Impression: 1. No acute cardiopulmonary process. Electronically signed by: Reji Lawrence MD (05/22/2019 10:57 AM) [facility] DICTATED and SIGNED BY: REJI LAWRENCE MD DATE: 05/22/19 [id number] [place] [address] IMAGING REPORT Signed PATIENT: TAYLOR SARAVIACOUNT: [id number] : 1960 LOCATION: ER AGE: 59 SEX: F EXAM STATUS: REG ER ORD. PHYSICIAN: PAXTON RATLIFF MD REASON: syncope and fall PROCEDURE: HIP LEFT 2V WITH PELVIS HIP LEFT 2V WITH PELVIS History: Syncope, fall Comparison: December 30, 2018 Findings: AP view the pelvis and 2 additional views of the left hip are submitted. There is vascular calcification in the groin regions bilaterally. No acute fracture or dislocation is identified by radiographs. Impression: 1. No acute osseous abnormality is identified by radiographs. Electronically signed by: Mary Gomez MD (05/22/2019 11:07 AM) [facility] DICTATED and SIGNED BY: MARY GOMEZ MD DATE: 05/22/19 1103 Course & Med Decision Making Course & Med Decision Making Pertinent Labs and Imaging studies reviewed. (See chart for details) Patient requiring admission for further evaluation and treatment. Discussed with Dr. Boyle who is in agreement with admission. Discussed findings and plan with patient and family, who acknowledge understanding and agreement. Dragon Disclaimer Dragon Disclaimer This electronic medical record was generated, in whole or in part, using a voice recognition dictation system. Departure Departure Impression: Primary Impression: Syncope Additional Impressions: Fall Dizziness Hypokalemia Hypomagnesemia Elevated CK Hip injury Disposition: ADMITTED INPATIENT (At 1314) Admitting Physician: [facility] (Dr. Boyle accepted admission at 1313) Condition: IMPROVED Referrals: ROWENA CUNNINGHAM MD (PCP) Scripts Hydrocodone Bit/Acetaminophen (HYDROCODONE-APAP 5-325 ) 1 Tab Tablet 1 TAB PO PRN Q6HRS PRN for MODERATE PAIN for 6 Days, #15 TAB Prov: REGINA DAVID MD 05/24/19 Problem Qualifiers Primary Impression: Syncope Syncope type: unspecified Qualified Codes: R55 - Syncope and collapse Additional Impressions: Fall Encounter type: sequela Qualified Codes: W19.XXXS - Unspecified fall, sequela Hip injury Encounter type: initial encounter Laterality: left Qualified Codes: S79.912A - Unspecified injury of left hip, initial encounter PAXTON RATLIFF MD May 22, 2019 13:04
[2019-05-22] MEDS ORDERED: INSU100I32 SQ (14:30)
[2019-05-22 15:00] VITALS: BP 162/91
[2019-05-22] MEDS ORDERED: HYOSCYAMINE 0.125 MG TAB.RAPDIS PO PRN (16:15)
[2019-05-22] MEDS ORDERED: ONDANSETRON ODT 4 MG TAB.RAPDIS. PO PRN (16:30)
--- NOTE | 2019-05-22 17:44 | PDOC1 ---
History and Physical Date of Admission: Date of Admission DATE: 05/22/19 TIME: 17:39 Chief Complaint: Problems: (1) Generalized weakness (2) Hypomagnesemia (3) Hip injury (4) Elevated CK (5) Fall (6) Chronic pain (7) Multinodular goiter (8) Dysphagia (9) Cellulitis (10) Encounter for management of vacuum-assisted closure (VAC) of wound (11) Diabetic foot ulcer (12) Hyperglycemia due to type 1 diabetes mellitus (13) Hypoglycemia (14) Urinary tract infection (15) Back pain (16) Sciatica of right side (17) Fever (18) Left lower lobe pneumonia (19) Vertigo (20) Hypotension (21) Dupuytren's contracture (22) Occasional tremors (23) Hyperglycemia (24) Chest pain (25) Weakness (26) Dizziness (27) Hypokalemia (28) Thyroid mass (29) Goiter (30) Left hip pain (31) Hypothyroidism (32) Syncope Chief Complain: Syncopal episodes History of Present Illness: HPI: This is a 59-year-old female well-known to my service I've been caring for her and her for the past year or so Recently this patient has suffered from some strokes She's suffered left-sided weakness and has visual changes as well She has been at [facility] rehabilitation for the past couple months and went home yesterday Since she got home she's had a couple of syncopal episodes and falls Rates her symptoms at 9 out of 10 Describes her symptoms as irritating She tried increasing her home meds with that didn't help I discussed the case with the ER physician we are going to admit the patient and consult cardiology as I suspect she may be having arrhythmias Past Medical/Surgical History: PMH/PSH: Past Medical History: CVA, Diabetes-Type I, High Cholesterol, Hypothyroid, Hypotension, Stroke, Other Additional Past Medical Histor: NEUROPATHY, ORTHOSTATIC HYPOTENSION Past Surgical History: Other Additional Past Surgical Histo: L BREAST L FOOT R KNEE, THYROIDECTOMY Alcohol Use: None Drug Use: None Allergies: Allergies: Coded Allergies: atorvastatin (Verified Allergy, Severe, throat swells, 10/13/18) ciprofloxacin (Verified Allergy, Severe, "THROAT CLOSES UP" ANAPHYLAXIS, 10/13/18) hydroxyzine (Verified Allergy, Severe, DIZZINESS, "I FEEL LIKE IM DRUNK", 10/13/18) ketorolac (Verified Allergy, Severe, 04/04/19) Headache lidocaine (Verified Allergy, Severe, THROAT SWELLING, 02/28/19) raspberry (Verified Allergy, Severe, CHOKING SENSATION IN THROAT, 10/13/18) tramadol (Verified Allergy, Severe, VOMITING, 10/13/18) amoxicillin (Verified Allergy, Intermediate, 10/13/18) aspirin (Verified Allergy, Intermediate, 10/13/18) cephalexin (Verified Allergy, Intermediate, 10/13/18) codeine (Verified Allergy, Intermediate, 10/13/18) ibuprofen (Verified Allergy, Intermediate, 10/13/18) morphine (Verified Allergy, Intermediate, 10/13/18) simvastatin (Verified Allergy, Intermediate, 10/13/18) LEGS BUCKEL, LOSE FEELING sucralose (Verified Allergy, Intermediate, 11/09/18) pregabalin (Verified Allergy, Mild, vomiting, 10/13/18) Family History: Family History: Coronary artery disease in her dad and mom Social History: Social Hisoty: She's she does not drink smoke or take drugs recently disabled because of strokes Current Medications: Current Medications Current Medications Potassium Chloride (Klor-Con) 40 meq 1X ONCE PO ; Start 05/22/19 at 12:00; Stop 05/22/19 at 12:35; Status DC Sodium Chloride 1,000 ml @ 100 mls/hr 1X ONCE IV Last administered on 05/22/19at 12:22; Start 05/22/19 at 12:00; Stop 05/22/19 at 21:59 Fentanyl Citrate (Fentanyl 2ml Vial) 50 mcg 1X ONCE IVP Last administered on 05/22/19at 12:22; Start 05/22/19 at 12:30; Stop 05/22/19 at 12:31; Status DC Potassium Bicarbonate (Potassium Effervescent Tablet) 40 meq 1X ONCE PO Last administered on 05/22/19at 15:52; Start 05/22/19 at 12:45; Stop 05/22/19 at 12:46; Status DC Amitriptyline HCl (Elavil) 50 mg QHS PO ; Start 05/22/19 at 21:00 Clopidogrel Bisulfate (Plavix) 75 mg DAILYWBKFT PO ; Start 05/23/19 at 08:00 Fludrocortisone Acetate (Florinef) 0.1 mg DAILY PO ; Start 05/23/19 at 09:00 Gabapentin (Neurontin) 600 mg HS PO ; Start 05/22/19 at 21:00 Acetaminophen/ Hydrocodone Bitart (Lortab 5/325) 1 tab PRN Q6HRS PRN PO MODERATE PAIN; Start 05/22/19 at 16:15 Hyoscyamine (Anaspaz) 0.125 mg PRN Q4HRS PRN PO STOMACH CRAMPING; Start 05/22/19 at 16:15 Levothyroxine Sodium (Synthroid) 200 mcg HS PO ; Start 05/22/19 at 21:00 Insulin Human Lispro (HumaLOG) 1 units TIDWMEALS SQ ; Start 05/22/19 at 18:00 Insulin Glargine (Lantus Syringe) 15 unit QHS SQ ; Start 05/22/19 at 21:00 Non-Formulary Medication (Lovastatin ) 10 mg HS PO ; Start 05/22/19 at 21:00; Status UNV Ondansetron HCl (Zofran Odt) 4 mg PRN Q8HRS PRN PO NAUSEA/VOMITING; Start 05/22/19 at 16:30 Active Scripts Active Hydrocodone-Apap 5-325 (Hydrocodone Bit/Acetaminophen) 1 Tab Tablet 1 Tab PO PRN Q6HRS PRN 6 Days Clopidogrel (Clopidogrel Bisulfate) 75 Mg Tablet 75 Mg PO DAILYWBKFT 30 Days Anaspaz (Hyoscyamine Sulfate) 0.125 Mg Tab.rapdis 0.125 Mg PO PRN Q4HRS PRN 30 Days Zofran (Ondansetron Hcl) 4 Mg Tablet 1 Tab PO PRN Q6-8HRS Fludrocortisone Acetate 0.1 Mg Tablet 0.1 Mg PO DAILY 30 Days Amitriptyline Hcl 25 Mg Tablet 50 Mg PO QHS 30 Days Reported Basaglar Kwikpen U-100 (Insulin Glargine,Hum.rec.anlog) 100 Unit/1 Ml Insuln.pen 15 Unit SQ HS Levothyroxine Sodium 100 Mcg Tablet 200 Mcg PO HS Novolog Flexpen (Insulin Aspart) 100 Unit/1 Ml Insuln.pen 1 Unit SQ TIDAC PER SLIDING SCALE Lovastatin 10 Mg Tablet 10 Mg PO HS Gabapentin (Gabapentin) 300 Mg Capsule 600 Mg PO HS ROS: Review of Systems Review of System REVIEW OF SYSTEMS: GENERAL: Complains of weakness SKIN: No bruising, hair changes or rashes. EYES: Complains of visual changes with the left eye turned inward after her stroke NOSE AND THROAT: No history of nosebleeds, hoarseness or sore throat. HEART: No history of palpitations, chest pain or shortness of breath on exertion. LUNGS: Denies cough, hemoptysis, wheezing or shortness of breath. GASTROINTESTINAL: Denies changes in appetite, nausea, vomiting, diarrhea or constipation. GENITOURINARY: No history of frequency, urgency, hesitancy or nocturia. NEUROLOGIC: Complains of syncopal episodes 3 PSYCHIATRIC: No history of panic, anxiety or depression. ENDOCRINE: No history of heat or cold intolerance, polyuria or polydipsia. EXTREMITIES: Complains of some mild edema Physical Exam: Vital Signs: Vital Signs Date Time Temp Pulse Resp B/P (MAP) Pulse Ox O2 Delivery O2 Flow Rate FiO2 05/22/19 15:21 Room Air 05/22/19 15:00 98.2 87 18 162/91 (114) 97 98.2 Physcial Exam: GEN: She is somewhat weak HEENT: Normal cephalic, atraumatic, external auditory canals are patent EYES: Left eye has internal strabismus MUSCULOSKELETAL: Well developed , well nourished, good range of motion ENDOCRINE: No thyromegaly was palpated LYMPHATICS: No cervical chain or axillary nodes were noted HEMATOPOIETIC: No bruising NECK: Supple, no JVD, no thyromegaly was noted LUNGS: Clear to auscultation in all lung guzmán without rhonchi or wheezing HEART: RRR, S!, S2 present. Peripheral pulses intact, no obvious murmurs noted ABDOMEN: Soft, nontender. Positive bowel sounds, no organomegaly, normal bowel sounds EXTREMITIES: Without clubbing, cyanosis, or edema. Pedal pulses intact. 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 strength and left eye internal strabismus PSYCHIATRIC: A little anxious but stable SKIN: No ulcerations or rashes, good skin turgor, no jaundice VASCULAR: Good capillary refill, neurovascular bundle appears to be intact Labs: Labs: Laboratory Tests Test 05/22/19 10:15 White Blood Count 5.1 x10^3/uL (4.0-11.0) Red Blood Count 4.63 x10^6/uL (3.50-5.40) Hemoglobin 12.2 g/dL (12.0-15.5) Hematocrit 37.8 % (36.0-47.0) Mean Corpuscular Volume 82 fL (79-100) Mean Corpuscular Hemoglobin 26 pg (25-35) Mean Corpuscular Hemoglobin Concent 32 g/dL (31-37) Red Cell Distribution Width 14.0 % (11.5-14.5) Platelet Count 284 x10^3/uL (140-400) Neutrophils (%) (Auto) 55 % (31-73) Lymphocytes (%) (Auto) 32 % (24-48) Monocytes (%) (Auto) 10 % (0-9) Eosinophils (%) (Auto) 2 % (0-3) Basophils (%) (Auto) 1 % (0-3) Neutrophils # (Auto) 2.8 x10^3/uL (1.8-7.7) Lymphocytes # (Auto) 1.6 x10^3/uL (1.0-4.8) Monocytes # (Auto) 0.5 x10^3/uL (0.0-1.1) Eosinophils # (Auto) 0.1 x10^3/uL (0.0-0.7) Basophils # (Auto) 0.0 x10^3/uL (0.0-0.2) Prothrombin Time 13.7 SEC (11.7-14.0) Prothromb Time International Ratio 1.1 (0.8-1.1) Sodium Level 141 mmol/L (136-145) Potassium Level 3.1 mmol/L (3.5-5.1) Chloride Level 101 mmol/L (98-107) Carbon Dioxide Level 32 mmol/L (21-32) Anion Gap 8 (6-14) Blood Urea Nitrogen 15 mg/dL (7-20) Creatinine 0.6 mg/dL (0.6-1.0) Estimated GFR (Cockcroft-Gault) 103.0 BUN/Creatinine Ratio 25 (6-20) Glucose Level 189 mg/dL (70-99) Calcium Level 9.2 mg/dL (8.5-10.1) Magnesium Level 1.6 mg/dL (1.8-2.4) Total Bilirubin 0.3 mg/dL (0.2-1.0) Aspartate Amino Transf (AST/SGOT) 31 U/L (15-37) Alanine Aminotransferase (ALT/SGPT) 26 U/L (14-59) Alkaline Phosphatase 243 U/L (46-116) Creatine Kinase 241 U/L (26-192) Troponin I Quantitative < 0.017 ng/mL (0.000-0.055) RB-Red-B-Type Natriuretic Peptide 560 pg/mL (0-124) Total Protein 7.0 g/dL (6.4-8.2) Albumin 3.0 g/dL (3.4-5.0) Albumin/Globulin Ratio 0.8 (1.0-1.7) Lipase 113 U/L (73-393) Laboratory Tests Test 05/22/19 10:15 White Blood Count 5.1 x10^3/uL (4.0-11.0) Red Blood Count 4.63 x10^6/uL (3.50-5.40) Hemoglobin 12.2 g/dL (12.0-15.5) Hematocrit 37.8 % (36.0-47.0) Mean Corpuscular Volume 82 fL (79-100) Mean Corpuscular Hemoglobin 26 pg (25-35) Mean Corpuscular Hemoglobin Concent 32 g/dL (31-37) Red Cell Distribution Width 14.0 % (11.5-14.5) Platelet Count 284 x10^3/uL (140-400) Neutrophils (%) (Auto) 55 % (31-73) Lymphocytes (%) (Auto) 32 % (24-48) Monocytes (%) (Auto) 10 % (0-9) Eosinophils (%) (Auto) 2 % (0-3) Basophils (%) (Auto) 1 % (0-3) Neutrophils # (Auto) 2.8 x10^3/uL (1.8-7.7) Lymphocytes # (Auto) 1.6 x10^3/uL (1.0-4.8) Monocytes # (Auto) 0.5 x10^3/uL (0.0-1.1) Eosinophils # (Auto) 0.1 x10^3/uL (0.0-0.7) Basophils # (Auto) 0.0 x10^3/uL (0.0-0.2) Prothrombin Time 13.7 SEC (11.7-14.0) Prothromb Time International Ratio 1.1 (0.8-1.1) Sodium Level 141 mmol/L (136-145) Potassium Level 3.1 mmol/L (3.5-5.1) Chloride Level 101 mmol/L (98-107) Carbon Dioxide Level 32 mmol/L (21-32) Anion Gap 8 (6-14) Blood Urea Nitrogen 15 mg/dL (7-20) Creatinine 0.6 mg/dL (0.6-1.0) Estimated GFR (Cockcroft-Gault) 103.0 BUN/Creatinine Ratio 25 (6-20) Glucose Level 189 mg/dL (70-99) Calcium Level 9.2 mg/dL (8.5-10.1) Magnesium Level 1.6 mg/dL (1.8-2.4) Total Bilirubin 0.3 mg/dL (0.2-1.0) Aspartate Amino Transf (AST/SGOT) 31 U/L (15-37) Alanine Aminotransferase (ALT/SGPT) 26 U/L (14-59) Alkaline Phosphatase 243 U/L (46-116) Creatine Kinase 241 U/L (26-192) Troponin I Quantitative < 0.017 ng/mL (0.000-0.055) KF-Wnw-R-Type Natriuretic Peptide 560 pg/mL (0-124) Total Protein 7.0 g/dL (6.4-8.2) Albumin 3.0 g/dL (3.4-5.0) Albumin/Globulin Ratio 0.8 (1.0-1.7) Lipase 113 U/L (73-393) Images: Images Single AP view of the chest. Comparison: 04/24/2019. Indication: Syncope and fall Findings: The heart is enlarged but stable. There is no pneumothorax or effusion. No air space or interstitial disease. Impression: 1. No acute cardiopulmonary process. Assessment/Plan Assessment/Plan Syncopal episodes suspect possible arrhythmias Plan Cardiac monitoring Consult cardiology Consult neurology Consider EEG Consider echocardiogram Trend labs PT OT DVT prophylaxis Home meds Gentle IV hydration Full code Suspect she might need prison after this hospitalization Long-term prognosis guarded NIMESH LANIER III DO May 22, 2019 17:44
[2019-05-22] MEDS ORDERED: IV DEXTROSE 5% 250 ML BAG. IV PRN (18:00)
[2019-05-22] MEDS ORDERED: DEXTROSE 50% 25 GM / 50ML DISP.SYRIN. IV PRN (18:00)
[2019-05-22] MEDS ORDERED: INSULIN LISPRO 300 UNITS/3 ML VIAL. SQ SCH (18:00)
[2019-05-22] MEDS: INSULIN LISPRO 300 UNITS/3 ML VIAL. SQ SCH (18:20)
[2019-05-22 19:40] VITALS: BP 149/89
[2019-05-22] MEDS ORDERED: INSULIN GLARGINE SYRINGE. SQ SCH (21:00)
[2019-05-22] MEDS: Lovastatin 10 MG PO SCH (21:00)
[2019-05-22] MEDS: LEVOTHYROXINE 100 MCG TABLET PO SCH (22:22)
[2019-05-22] MEDS: GABAPENTIN 300 MG CAPSULE. PO SCH (22:22)
[2019-05-22] MEDS: AMITRIPTYLINE HCL 25 MG TABLET. PO SCH (22:23)
[2019-05-22] MEDS: HYDROcodone/APAP 5/325MG 1 TAB TABLET PO PRN (23:12)
[2019-05-22 23:35] VITALS: BP 172/94
[2019-05-22 23:37] VITALS: BP 155/91
[2019-05-22 23:39] VITALS: BP 132/75
[2019-05-23] VITALS (9 sets, daily range): BP systolic 123–163; BP diastolic 54–98
[2019-05-23] MEDS: HYDROcodone/APAP 5/325MG 1 TAB TABLET PO PRN ×3 (05:22→21:25)
[2019-05-23] MEDS: INSULIN LISPRO 300 UNITS/3 ML VIAL. SQ SCH (07:55)
[2019-05-23] MEDS: CLOPIDOGREL BISULFATE 75 MG TABLET PO SCH (09:29)
[2019-05-23] MEDS: FLUDROCORTISONE 0.1 MG TABLET PO SCH (09:29)
[2019-05-23] MEDS ORDERED: DEXTROSE 50% 25 GM / 50ML DISP.SYRIN. IV PRN (11:15)
[2019-05-23] MEDS ORDERED: ACETAMINOPHEN 500 MG TABLET PO PRN (11:15)
[2019-05-23] MEDS ORDERED: ONDANSETRON PF 4 MG/2 ML VIAL. IVP PRN (11:15)
[2019-05-23] MEDS ORDERED: IV DEXTROSE 5% 250 ML BAG. IV PRN (11:15)
--- NOTE | 2019-05-23 11:49 | EEG ---
DATE OF SERVICE: 05/23/2019 EEG NUMBER: [id number] OBJECTIVE: This is a 59-year-old female patient with history of syncopal spell and fall. EEG was requested to help rule out seizure. METHODS: Twenty electrodes were applied according to the international 10-20 electrode placement system. EKG monitoring, hyperventilation, intermittent photic stimulation, monopolar and bipolar montages are routinely utilized. The record was obtained on a digital system with video monitoring. FINDINGS: 1. Background: The patient was recorded in the awake, drowsy, and sleep states. The overall background amplitude is 5-15 microvolts. A posterior dominant rhythm of 8 Hz is observed occasionally, but is not well organized. The superimposed slowing in the theta and delta frequencies noted and a fast activity in the beta frequency also noted. 2. Abnormalities: No specific epileptiform discharge or electrographic seizure is seen. 3. Activation: Hyperventilation was performed with good efforts and normal response. Intermittent photic stimulation was performed with photic driving. No specific epileptiform discharge or electrographic seizure induced by hyperventilation or intermittent photic stimulation. IMPRESSION: This EEG is a mildly abnormal study for the awake, drowsy, and sleep states. The posterior dominant rhythm is not well organized. There is superimposed slowing in the theta and delta frequencies. Faster activity in the beta frequency also noted. No focal, lateralizing, specific epileptiform discharge, or electrographic seizure is seen. HARDY SHEPARD MD DR: MARY KATE/ted JOB#: [id number] / [id number] JUAN LUIS
[2019-05-23] MEDS ORDERED: INSULIN LISPRO 300 UNITS/3 ML VIAL. SQ SCH (12:00)
--- NOTE | 2019-05-23 12:02 | PDOC2 ---
CHIDI HERRERA SENIOR LEAD JAVA DEVELOPER 05/23/19 1202: CARDIAC CONSULT DATE OF CONSULT Date of Consult DATE: 05/23/19 TIME: 11:33 REASON FOR CONSULT Reason for Consult: Syncope REFERRING PHYSICIAN Referring Physician: [place] SOURCE Source: Chart review, Patient HISTORY OF PRESENT ILLNESS HISTORY OF PRESENT ILLNESS This is a pleasant 59 yo female admitted for complains of passing out. Reports that she was sitting, stood up and took few steps and fell down. She passed out and resume wakefulness after falling. No fractures abut did sustained superficial injuries. In over a week she has fallen and passed out 4x. She was recently released from rehab about 2 weeks ago. She is known for orthostasis and was intended to have ILR but she kept on getting hospitalized and hence being postponed. So far no arrhythmias on tele except for PVCs. No chest pain and again no presyncopal symptoms and her event just occurs suddenly. No palpitations, SOA. No recent n/v/d. She does take midodrine PRN. PAST MEDICAL HISTORY Past Medical History Cardiovascular: Hyperlipidemia, orthostasis Pulmonary: COPD CENTRAL NERVOUS SYSTEM: CVA, Peripheral neuropathy, migraine GI: No pertinent hx Heme/Onc: IGLESIA Hepatobiliary: No pertinent hx Psych: No pertinent hx Musculoskeletal: Osteoarthritis Rheumatologic: No pertinent hx Infectious disease: none EENT: Diplopia, left palsy Renal/: No pertinent hx Endocrine: Diabetes, Hyperthyroidism, multinodular goiter, Acquired hypothyroidism ENT: Other PAST SURGICAL HISTORY Past Surgical History total thyroidectomy FAMILY HISTORY Family History: Diabetes SOCIAL HISTORY Smoke: No ALCOHOL: none Drugs: None Lives: with Family CURRENT MEDICATIONS CURRENT MEDICATIONS Current Medications Medications (Trade) Dose Ordered Sig/[place] Route PRN Reason Start Time Stop Time Status Last Admin Dose Admin Sodium Chloride 1,000 ml @ 100 mls/hr 1X ONCE IV 05/22/19 12:00 05/22/19 21:59 DC 05/22/19 12:22 Fentanyl Citrate (Fentanyl 2ml Vial) 50 mcg 1X ONCE IVP 05/22/19 12:30 05/22/19 12:31 DC 05/22/19 12:22 Potassium Bicarbonate (Potassium Effervescent Tablet) 40 meq 1X ONCE PO 05/22/19 12:45 05/22/19 12:46 DC 05/22/19 15:52 Amitriptyline HCl (Elavil) 50 mg QHS PO 05/22/19 21:00 05/22/19 22:23 Clopidogrel Bisulfate (Plavix) 75 mg DAILYWBKFT PO 05/23/19 08:00 05/23/19 09:29 Fludrocortisone Acetate (Florinef) 0.1 mg DAILY PO 05/23/19 09:00 05/23/19 09:29 Gabapentin (Neurontin) 600 mg HS PO 05/22/19 21:00 05/22/19 22:22 Acetaminophen/ Hydrocodone Bitart (Lortab 5/325) 1 tab PRN Q6HRS PRN PO MODERATE PAIN 05/22/19 16:15 05/23/19 05:22 Levothyroxine Sodium (Synthroid) 200 mcg HS PO 05/22/19 21:00 05/22/19 22:22 Insulin Glargine (Lantus Syringe) 15 unit QHS SQ 05/22/19 21:00 05/22/19 22:28 Insulin Human Lispro (HumaLOG) 0-5 UNITS TIDWMEALS SQ 05/22/19 18:00 05/23/19 11:13 DC 05/22/19 18:20 ALLERGIES ALLERGIES: Coded Allergies: atorvastatin (Verified Allergy, Severe, throat swells, 10/13/18) ciprofloxacin (Verified Allergy, Severe, "THROAT CLOSES UP" ANAPHYLAXIS, 10/13/18) hydroxyzine (Verified Allergy, Severe, DIZZINESS, "I FEEL LIKE IM DRUNK", 10/13/18) ketorolac (Verified Allergy, Severe, 04/04/19) Headache lidocaine (Verified Allergy, Severe, THROAT SWELLING, 02/28/19) raspberry (Verified Allergy, Severe, CHOKING SENSATION IN THROAT, 10/13/18) tramadol (Verified Allergy, Severe, VOMITING, 10/13/18) amoxicillin (Verified Allergy, Intermediate, 10/13/18) aspirin (Verified Allergy, Intermediate, 10/13/18) cephalexin (Verified Allergy, Intermediate, 10/13/18) codeine (Verified Allergy, Intermediate, 10/13/18) ibuprofen (Verified Allergy, Intermediate, 10/13/18) morphine (Verified Allergy, Intermediate, 10/13/18) simvastatin (Verified Allergy, Intermediate, 10/13/18) LEGS BUCKEL, LOSE FEELING sucralose (Verified Allergy, Intermediate, 11/09/18) pregabalin (Verified Allergy, Mild, vomiting, 10/13/18) ROS Review of System 14 point ROS evaluated with pertinent positives noted per HPI PHYSICAL EXAM General: Alert, Oriented X3, Cooperative, No acute distress HEENT: Atraumatic, Mucous membr. moist/pink Lungs: Other (diminished bases) Heart: Regular rate (SR), Normal S1, Normal S2, No murmurs Abdomen: Soft, No tenderness Extremities: No cyanosis, No edema Skin: Other (right knee abrasion, multiple leg brusing) Neuro: Normal speech, Sensation intact Psych/Mental Status: Mental status NL, Mood NL MUSCULOSKELETAL: Osteoarthritic changes both hands VITALS/I&O VITALS/I&O: Vital Signs Date Time Temp Pulse Resp B/P (MAP) Pulse Ox O2 Delivery O2 Flow Rate FiO2 05/23/19 08:00 Room Air 05/23/19 07:00 97.8 87 16 153/92 (112) 96 97.8 I & O 05/22/19 05/22/19 05/23/19 15:00 23:00 07:00 Intake Total 600 ml 300 ml Balance 600 ml 300 ml LABS Lab: Laboratory Tests Test 05/22/19 18:15 05/22/19 21:28 05/23/19 07:35 Glucose (Fingerstick) 249 mg/dL (70-99) H 169 mg/dL (70-99) H 119 mg/dL (70-99) H ECHOCARDIOGRAM ECHOCARDIOGRAM <Conclusion> The left ventricle is normal size. The left ventricular systolic function is normal and the ejection fraction is within normal range. The Ejection Fraction is 55-60%. There is no significant aortic valvular stenosis. Doppler and Color Flow revealed trace aortic regurgitation. Doppler and Color Flow revealed trace mitral valve regurgitation. Doppler and Color Flow revealed trace tricuspid regurgitation. DATE: 08/24/18 1232 ASSESSMENT/PLAN ASSESSMENT/PLAN 1. Syncope: due to orthostasis 2. SH-OH syndrome 3. Autonomic dysfunction 4. Multiple syncopal falls 5. Leg edema: rule out DVT with associated multiple falls. 6. PVCs r/t low K and Mg 7. Hypothyroidism Recommendations ILR to be scheduled as an outpt. So far no significant arrhythmias that would relate to her syncope. BMP and Mg, Replace K and Mg as warranted. Encouraged not to lay supine and rest at semi fowlers position. Venous LE doppler. Once DVT ruled out then mechanical compressions. LISETTE COHEN MD 05/23/19 1704: CARDIAC CONSULT ASSESSMENT/PLAN ASSESSMENT/PLAN Pt. seen and examined. Agree with above BUSINESS BANKING MANAGER note No clear cardiac source of syncope. Plan for outpt loop recorder due to persistent symptoms. Thanks. Discussed with and patient. CHIDI HERRERA APRN May 23, 2019 12:02 LISETTE COHEN MD May 23, 2019 17:04
[2019-05-23 12:37] LABS: CALCIUM 8.6 mg/dL (8.5-10.1); CREATININE 0.7 mg/dL (0.6-1.0); GFR 86.2; POTASSIUM 3.5 mmol/L (3.5-5.1)
[2019-05-23 12:41] LABS: BILIRUBIN,URINE NEGATIVE (NEG); CLARITY,URINE CLEAR; COLOR,URINE YELLOW; NITRITE,URINE NEGATIVE (NEG); PH,URINE 6.5; PROTEIN,URINE >=300 mg/dL (NEG-TRACE); UROBILINOGEN,URINE 0.2 mg/dL (0.2 mg/dL)
[2019-05-23 12:51] LABS: BACTERIA,URINE MANY /HPF (0-FEW); SQUAMOUS EPITHELIAL CELL,UR MANY /LPF
--- NOTE | 2019-05-23 13:09 | NUR ---
SS following for discharge planning. SS reviewed pt chart. Pt is from home with spouse and is currently on room air. PT/OT ordered. SS will continue to follow for discharge planning.
[2019-05-23 13:35] LABS: BARBITURATES NEG (NEG); BENZODIAZEPINES NEG (NEG); CANNABINOIDS NEG (NEG); COCAINE NEG (NEG); METHADONE NEG (NEG); OPIATES POS (NEG); PHENCYCLIDINE NEG (NEG)
[2019-05-23 13:36] LABS: AMPHETAMINE/METHAMPHETAMINE NEG (NEG)
[2019-05-23] MEDS ORDERED: MAGNESIUM SULFATE 2GM 50 ML IV ONE (13:45)
--- NOTE | 2019-05-23 13:57 | RAD ---
MR#: [id number] Date of Study: 05/23/2019 Ordering Physician: CHIDI HERRERA, Referring Physician: CHIDI HERRERA, Tech: Flavio Delgado MBA, RDMS, RVT, RDCS, RTR APPROVED REPORT Bilateral Lower Extremity Venous Study for DVT Patient Location: IN-PATIENT Indications Lower Extremity Edema: Bilateral Vein Imaging (Right) CFV (R): Compressible SFJ (R): Compressible FEM (R): Compressible POP (R): Compressible DFV (R): Compressible PTV (R): Spontaneous GSV (R): Spontaneous Peroneals (R): Spontaneous Vein Imaging (Left) CFV (L): Compressible SFJ (L): Compressible FEM (L): Compressible POP (L): Compressible DFV (L): Compressible PTV (L): Spontaneous GSV (L): Spontaneous Peroneals (L): Spontaneous Doppler Evaluation (Right) CFV (R): Spontaneous POP (R):Spontaneous Doppler Evaluation (Left) CFV (L):Spontaneous POP (L):Spontaneous Findings The bilateral lower extremity deep veins were evaluated for thrombus with color Doppler, spectral and grayscale images. On the right the grayscale images of the common femoral, superficial femoral and popliteal veins do n ot demonstrate any evidence of thrombus and these veins appear to be compressible. The below-knee vei ns were not well visualized but grossly appear to be compressible. Spectral imaging and color Doppler do not reveal any evidence of obstruction to flow with normal respirophasic variation above the knee . Below the knee there is spontaneous flow noted. On the left, the grayscale images of the common femoral, superficial femoral and popliteal veins do n ot demonstrate any evidence of thrombus and these veins appear to be compressible. The below-knee vei ns again were not well visualized but grossly appear to be compressible. Spectral imaging and color D oppler do not reveal any evidence of obstruction to flow with normal respirophasic variation above th e knee. The below-knee veins demonstrate spontaneous flow. Critical Notification Critical Value: No <Conclusion> Negative for DVT in the BLE. Signed by : Kristian Mcnamara, Electronically Approved : 05/23/2019 13:57:24
--- NOTE | 2019-05-23 14:08 | NUR ---
leadlighter cosmichael. I have read the documentation by SN Tristan and concur unless otherwise noted. Nely Krause RN [facility]
[2019-05-23] MEDS ORDERED: LABETALOL 20 MG/4 ML DISP.SYRIN. IVP PRN ×2 (14:45→16:00)
[2019-05-23] MEDS ORDERED: POTASSIUM CHLORIDE 20 MEQ TABLET.ER. PO ONE (15:00)
[2019-05-23] MEDS ORDERED: LABETALOL 20 MG/4 ML DISP.SYRIN. IVP ONE (15:00)
--- NOTE | 2019-05-23 15:04 | NUR ---
Wound Care: Patient seen per wound care consult. See wound assessment. patient is well known to us from previous admissions. Patient has skin tear to left knee. Wound cleansed and assessed. Recommendations for Xeroform gauze and foam dressing. Dressing applied. No other wounds noted upon complete head to toe assessment. Dressing change instructions left in room. Patient up in chair and family at bedside. call light in reach. Will follow patient regarding wound care.
--- NOTE | 2019-05-23 15:44 | PDOC ---
PROGRESS NOTES Chief Complaint Chief Complaint 1. Syncope: due to orthostasis 2. SH-OH syndrome 3. Autonomic dysfunction 4. Multiple syncopal falls 5. Leg edema: rule out DVT with associated multiple falls. 6. PVCs r/t low K and Mg 7. Hypothyroidism History of Present Illness History of Present Illness working with PT and very weak CArds note read US neg so we can use SCDs WIll need some sort or rehab or snu PLAN: [facility] vs [facility] screen keep tele, change to inpt- can be symptomatically orthiostatic Vitals Vitals Vital Signs Date Time Temp Pulse Resp B/P (MAP) Pulse Ox O2 Delivery O2 Flow Rate FiO2 05/23/19 15:00 97.7 85 18 152/90 (110) 100 Room Air 97.7 Physical Exam General: Alert, Oriented X3, Cooperative, No acute distress Heart: Regular rate (SR), Normal S1, Normal S2, No murmurs Lungs: Clear Abdomen: Soft, No tenderness Extremities: No cyanosis, No edema Skin: Other (right knee abrasion, multiple leg brusing) Labs LABS Laboratory Tests Test 05/22/19 18:15 05/22/19 21:28 05/23/19 07:35 05/23/19 11:35 Glucose (Fingerstick) 249 mg/dL (70-99) 169 mg/dL (70-99) 119 mg/dL (70-99) 164 mg/dL (70-99) Test 05/23/19 12:15 05/23/19 12:20 Sodium Level 141 mmol/L (136-145) Potassium Level 3.5 mmol/L (3.5-5.1) Chloride Level 103 mmol/L (98-107) Carbon Dioxide Level 31 mmol/L (21-32) Anion Gap 7 (6-14) Blood Urea Nitrogen 14 mg/dL (7-20) Creatinine 0.7 mg/dL (0.6-1.0) Estimated GFR (Cockcroft-Gault) 86.2 Glucose Level 168 mg/dL (70-99) Calcium Level 8.6 mg/dL (8.5-10.1) Magnesium Level 1.7 mg/dL (1.8-2.4) Urine Collection Type Unknown Urine Color Yellow Urine Clarity Clear Urine pH 6.5 Urine Specific Higginson 1.020 Urine Protein >=300 mg/dL (NEG-TRACE) Urine Glucose (UA) 100 mg/dL (NEG) Urine Ketones (Stick) Negative mg/dL (NEG) Urine Blood Small (NEG) Urine Nitrite Negative (NEG) Urine Bilirubin Negative (NEG) Urine Urobilinogen Dipstick 0.2 mg/dL (0.2 mg/dL) Urine Leukocyte Esterase Negative (NEG) Urine RBC 11-20 /HPF (0-2) Urine WBC 5-10 /HPF (0-4) Urine Squamous Epithelial Cells Many /LPF Urine Bacteria Many /HPF (0-FEW) Urine Mucus Marked /LPF Urine Opiates Screen Pos (NEG) Urine Methadone Screen Neg (NEG) Urine Barbiturates Neg (NEG) Urine Phencyclidine Screen Neg (NEG) Urine Amphetamine/Methamphetamine Neg (NEG) Urine Benzodiazepines Screen Neg (NEG) Urine Cocaine Screen Neg (NEG) Urine Cannabinoids Screen Neg (NEG) Urine Ethyl Alcohol Neg (NEG) Review of Systems Review of Systems weak, dizzy on upright, all else 14 pt neg Assessment and Plan Assessmemt and Plan Problems Medical Problems: (1) Dizziness Status: Acute (2) Elevated CK Status: Acute (3) Hip injury Status: Acute (4) Hypokalemia Status: Acute (5) Hypomagnesemia Status: Acute (6) Syncope Status: Acute Comment Review of Relevant I have reviewed the following items zurdo (where applicable) has been applied. Labs Laboratory Tests Test 05/22/19 10:15 05/22/19 18:15 05/22/19 21:28 05/23/19 07:35 White Blood Count 5.1 x10^3/uL (4.0-11.0) Red Blood Count 4.63 x10^6/uL (3.50-5.40) Hemoglobin 12.2 g/dL (12.0-15.5) Hematocrit 37.8 % (36.0-47.0) Mean Corpuscular Volume 82 fL (79-100) Mean Corpuscular Hemoglobin 26 pg (25-35) Mean Corpuscular Hemoglobin Concent 32 g/dL (31-37) Red Cell Distribution Width 14.0 % (11.5-14.5) Platelet Count 284 x10^3/uL (140-400) Neutrophils (%) (Auto) 55 % (31-73) Lymphocytes (%) (Auto) 32 % (24-48) Monocytes (%) (Auto) 10 % (0-9) Eosinophils (%) (Auto) 2 % (0-3) Basophils (%) (Auto) 1 % (0-3) Neutrophils # (Auto) 2.8 x10^3/uL (1.8-7.7) Lymphocytes # (Auto) 1.6 x10^3/uL (1.0-4.8) Monocytes # (Auto) 0.5 x10^3/uL (0.0-1.1) Eosinophils # (Auto) 0.1 x10^3/uL (0.0-0.7) Basophils # (Auto) 0.0 x10^3/uL (0.0-0.2) Prothrombin Time 13.7 SEC (11.7-14.0) Prothromb Time International Ratio 1.1 (0.8-1.1) Sodium Level 141 mmol/L (136-145) Potassium Level 3.1 mmol/L (3.5-5.1) Chloride Level 101 mmol/L (98-107) Carbon Dioxide Level 32 mmol/L (21-32) Anion Gap 8 (6-14) Blood Urea Nitrogen 15 mg/dL (7-20) Creatinine 0.6 mg/dL (0.6-1.0) Estimated GFR (Cockcroft-Gault) 103.0 BUN/Creatinine Ratio 25 (6-20) Glucose Level 189 mg/dL (70-99) Calcium Level 9.2 mg/dL (8.5-10.1) Magnesium Level 1.6 mg/dL (1.8-2.4) Total Bilirubin 0.3 mg/dL (0.2-1.0) Aspartate Amino Transf (AST/SGOT) 31 U/L (15-37) Alanine Aminotransferase (ALT/SGPT) 26 U/L (14-59) Alkaline Phosphatase 243 U/L (46-116) Creatine Kinase 241 U/L (26-192) Troponin I Quantitative < 0.017 ng/mL (0.000-0.055) BW-Iia-D-Type Natriuretic Peptide 560 pg/mL (0-124) Total Protein 7.0 g/dL (6.4-8.2) Albumin 3.0 g/dL (3.4-5.0) Albumin/Globulin Ratio 0.8 (1.0-1.7) Lipase 113 U/L (73-393) Glucose (Fingerstick) 249 mg/dL (70-99) 169 mg/dL (70-99) 119 mg/dL (70-99) Test 05/23/19 11:35 05/23/19 12:15 05/23/19 12:20 Glucose (Fingerstick) 164 mg/dL (70-99) Sodium Level 141 mmol/L (136-145) Potassium Level 3.5 mmol/L (3.5-5.1) Chloride Level 103 mmol/L (98-107) Carbon Dioxide Level 31 mmol/L (21-32) Anion Gap 7 (6-14) Blood Urea Nitrogen 14 mg/dL (7-20) Creatinine 0.7 mg/dL (0.6-1.0) Estimated GFR (Cockcroft-Gault) 86.2 Glucose Level 168 mg/dL (70-99) Calcium Level 8.6 mg/dL (8.5-10.1) Magnesium Level 1.7 mg/dL (1.8-2.4) Urine Collection Type Unknown Urine Color Yellow Urine Clarity Clear Urine pH 6.5 Urine Specific Higginson 1.020 Urine Protein >=300 mg/dL (NEG-TRACE) Urine Glucose (UA) 100 mg/dL (NEG) Urine Ketones (Stick) Negative mg/dL (NEG) Urine Blood Small (NEG) Urine Nitrite Negative (NEG) Urine Bilirubin Negative (NEG) Urine Urobilinogen Dipstick 0.2 mg/dL (0.2 mg/dL) Urine Leukocyte Esterase Negative (NEG) Urine RBC 11-20 /HPF (0-2) Urine WBC 5-10 /HPF (0-4) Urine Squamous Epithelial Cells Many /LPF Urine Bacteria Many /HPF (0-FEW) Urine Mucus Marked /LPF Urine Opiates Screen Pos (NEG) Urine Methadone Screen Neg (NEG) Urine Barbiturates Neg (NEG) Urine Phencyclidine Screen Neg (NEG) Urine Amphetamine/Methamphetamine Neg (NEG) Urine Benzodiazepines Screen Neg (NEG) Urine Cocaine Screen Neg (NEG) Urine Cannabinoids Screen Neg (NEG) Urine Ethyl Alcohol Neg (NEG) Laboratory Tests Test 05/22/19 18:15 05/22/19 21:28 05/23/19 07:35 1/28/20 11:35 Glucose (Fingerstick) 249 mg/dL (70-99) 169 mg/dL (70-99) 119 mg/dL (70-99) 164 mg/dL (70-99) Test 05/23/19 12:15 05/23/19 12:20 Sodium Level 141 mmol/L (136-145) Potassium Level 3.5 mmol/L (3.5-5.1) Chloride Level 103 mmol/L (98-107) Carbon Dioxide Level 31 mmol/L (21-32) Anion Gap 7 (6-14) Blood Urea Nitrogen 14 mg/dL (7-20) Creatinine 0.7 mg/dL (0.6-1.0) Estimated GFR (Cockcroft-Gault) 86.2 Glucose Level 168 mg/dL (70-99) Calcium Level 8.6 mg/dL (8.5-10.1) Magnesium Level 1.7 mg/dL (1.8-2.4) Urine Collection Type Unknown Urine Color Yellow Urine Clarity Clear Urine pH 6.5 Urine Specific Higginson 1.020 Urine Protein >=300 mg/dL (NEG-TRACE) Urine Glucose (UA) 100 mg/dL (NEG) Urine Ketones (Stick) Negative mg/dL (NEG) Urine Blood Small (NEG) Urine Nitrite Negative (NEG) Urine Bilirubin Negative (NEG) Urine Urobilinogen Dipstick 0.2 mg/dL (0.2 mg/dL) Urine Leukocyte Esterase Negative (NEG) Urine RBC 11-20 /HPF (0-2) Urine WBC 5-10 /HPF (0-4) Urine Squamous Epithelial Cells Many /LPF Urine Bacteria Many /HPF (0-FEW) Urine Mucus Marked /LPF Urine Opiates Screen Pos (NEG) Urine Methadone Screen Neg (NEG) Urine Barbiturates Neg (NEG) Urine Phencyclidine Screen Neg (NEG) Urine Amphetamine/Methamphetamine Neg (NEG) Urine Benzodiazepines Screen Neg (NEG) Urine Cocaine Screen Neg (NEG) Urine Cannabinoids Screen Neg (NEG) Urine Ethyl Alcohol Neg (NEG) Medications Current Medications Potassium Chloride (Klor-Con) 40 meq 1X ONCE PO ; Start 05/22/19 at 12:00; Stop 05/22/19 at 12:35; Status DC Sodium Chloride 1,000 ml @ 100 mls/hr 1X ONCE IV Last administered on 05/22/19at 12:22; Start 05/22/19 at 12:00; Stop 05/22/19 at 21:59; Status DC Fentanyl Citrate (Fentanyl 2ml Vial) 50 mcg 1X ONCE IVP Last administered on 05/22/19at 12:22; Start 05/22/19 at 12:30; Stop 05/22/19 at 12:31; Status DC Potassium Bicarbonate (Potassium Effervescent Tablet) 40 meq 1X ONCE PO Last administered on 05/22/19at 15:52; Start 05/22/19 at 12:45; Stop 05/22/19 at 12:46; Status DC Amitriptyline HCl (Elavil) 50 mg QHS PO Last administered on 05/22/19at 22:23; Start 05/22/19 at 21:00 Clopidogrel Bisulfate (Plavix) 75 mg DAILYWBKFT PO Last administered on 0at 09:29; Start 05/23/19 at 08:00 Fludrocortisone Acetate (Florinef) 0.1 mg DAILY PO Last administered on 05/23/19at 09:29; Start 05/23/19 at 09:00 Gabapentin (Neurontin) 600 mg HS PO Last administered on 05/22/19at 22:22; Start 05/22/19 at 21:00 Acetaminophen/ Hydrocodone Bitart (Lortab 5/325) 1 tab PRN Q6HRS PRN PO MODERATE PAIN Last administered on 05/23/19at 11:48; Start 05/22/19 at 16:15 Hyoscyamine (Anaspaz) 0.125 mg PRN Q4HRS PRN PO STOMACH CRAMPING; Start 05/22/19 at 16:15 Levothyroxine Sodium (Synthroid) 200 mcg HS PO Last administered on 05/22/19at 22:22; Start 05/22/19 at 21:00 Insulin Human Lispro (HumaLOG) 1 units TIDWMEALS SQ ; Start 05/22/19 at 18:00; Stop 05/22/19 at 17:49; Status DC Insulin Glargine (Lantus Syringe) 15 unit QHS SQ Last administered on 05/22/19at 22:28; Start 05/22/19 at 21:00; Stop 05/23/19 at 15:39; Status DC Non-Formulary Medication (Lovastatin ) 10 mg HS PO ; Start 05/22/19 at 21:00; Status UNV Ondansetron HCl (Zofran Odt) 4 mg PRN Q8HRS PRN PO NAUSEA/VOMITING; Start 05/22/19 at 16:30 Insulin Human Lispro (HumaLOG) 0-5 UNITS TIDWMEALS SQ Last administered on 05/22/19at 18:20; Start 05/22/19 at 18:00; Stop 05/23/19 at 11:13; Status DC Dextrose (Dextrose 50%-Water Syringe) 12.5 gm PRN Q15MIN PRN IV SEE COMMENTS; Start 05/22/19 at 18:00 Dextrose (Iv Dextrose 5%) 250 ml PRN Q15MIN PRN IV SEE COMMENTS; Start 05/22/19 at 18:00 Acetaminophen (Tylenol) 500 mg PRN Q6HRS PRN PO MILD PAIN / TEMP; Start 05/23/19 at 11:15 Ondansetron HCl (Zofran) 4 mg PRN Q6HRS PRN IVP NAUSEA/VOMITING; Start 05/23/19 at 11:15 Insulin Human Lispro (HumaLOG) 0-9 UNITS TIDWMEALS SQ Last administered on 05/23/19at 12:00; Start 05/23/19 at 12:00 Dextrose (Dextrose 50%-Water Syringe) 12.5 gm PRN Q15MIN PRN IV SEE COMMENTS; Start 05/23/19 at 11:15 Dextrose (Iv Dextrose 5%) 250 ml PRN Q15MIN PRN IV SEE COMMENTS; Start 05/23/19 at 11:15 Magnesium Sulfate 50 ml @ 25 mls/hr 1X ONCE IV Last administered on 05/23/19at 13:54; Start 05/23/19 at 13:45; Stop 05/23/19 at 15:44 Labetalol HCl (Normodyne Iv Push) 20 mg PRN Q2HR PRN IVP HYPERTENSION; Start 05/23/19 at 14:45 Labetalol HCl (Normodyne Iv Push) 20 mg 1X ONCE IVP ; Start 05/23/19 at 15:00; Stop 05/23/19 at 15:01; Status DC Potassium Chloride (Klor-Con) 20 meq 1X ONCE PO ; Start 05/23/19 at 15:00; S top 05/23/19 at 15:01; Status DC Active Scripts Active Hydrocodone-Apap 5-325 (Hydrocodone Bit/Acetaminophen) 1 Tab Tablet 1 Tab PO PRN Q6HRS PRN 6 Days Clopidogrel (Clopidogrel Bisulfate) 75 Mg Tablet 75 Mg PO DAILYWBKFT 30 Days Anaspaz (Hyoscyamine Sulfate) 0.125 Mg Tab.rapdis 0.125 Mg PO PRN Q4HRS PRN 30 Days Zofran (Ondansetron Hcl) 4 Mg Tablet 1 Tab PO PRN Q6-8HRS Fludrocortisone Acetate 0.1 Mg Tablet 0.1 Mg PO DAILY 30 Days Amitriptyline Hcl 25 Mg Tablet 50 Mg PO QHS 30 Days Reported Basaglar Kwikpen U-100 (Insulin Glargine,Hum.rec.anlog) 100 Unit/1 Ml Insuln.pen 15 Unit SQ HS Levothyroxine Sodium 100 Mcg Tablet 200 Mcg PO HS Novolog Flexpen (Insulin Aspart) 100 Unit/1 Ml Insuln.pen 1 Unit SQ TIDAC PER SLIDING SCALE Lovastatin 10 Mg Tablet 10 Mg PO HS Gabapentin (Gabapentin) 300 Mg Capsule 600 Mg PO HS Vitals/I & O Vital Sign - Last 24 Hours 05/22/19 05/22/19 05/22/19 05/22/19 19:40 20:00 23:12 23:35 Temp 98.1 97.8 98.1 97.8 Pulse 89 87 Resp 18 18 B/P (MAP) 149/89 (109) 172/94 (120) Pulse Ox 99 99 99 O2 Delivery Room Air Room Air Room Air Room Air 05/22/19 05/22/19 05/23/19 05/23/19 23:37 23:39 03:35 05:22 Temp 98.1 98.1 Pulse 88 89 84 Resp 18 B/P (MAP) 155/91 (112) 132/75 (94) 143/85 (104) Pulse Ox 97 99 O2 Delivery Room Air Room Air 05/23/19 05/23/19 05/23/19 05/23/19 07:00 08:00 09:30 11:00 Temp 97.8 98.2 97.8 98.2 Pulse 87 84 Resp 16 18 B/P (MAP) 153/92 (112) 163/98 (119) Pulse Ox 96 99 O2 Delivery Room Air Room Air Room Air Room Air 05/23/19 05/23/19 05/23/19 11:48 13:50 15:00 Temp 97.7 97.7 Pulse 85 Resp 19 20 18 B/P (MAP) 152/90 (110) Pulse Ox 99 96 100 O2 Delivery Room Air Room Air Room Air Intake and Output 05/22/19 05/22/19 05/23/19 15:00 23:00 07:00 Intake Total 600 ml 300 ml Balance 600 ml 300 ml REGINA DAVID MD May 23, 2019 15:44
--- NOTE | 2019-05-23 17:41 | PDOC2 ---
NEUROLOGY CONSULT Date of Admission Date of Admission DATE: 05/23/19 TIME: 17:33 Reason for Consult Reason for Consult: Generalized weakness. Diplopia. Left palsy. Hypothyroidism, TSH 74.18 on 04/24/19. Falls. Orthostatic hypotension. Hyperglycemia. HTN. HLD. COPD. Peripheral neuropathy. Hepatomegaly. Degenerative spine disease. RECOMMENDATIONS/PLAN: EEG. Treat medical diseases. Treat hypothyroidism. OT/PT. MRI/MRA on 04/04/19 were negative. HISTORY OF THE PRESENT ILLNESS: This is a 59-year-old female patient was here in the hospital last month with complaints of generalized weakness, diplopia, fatigue, tiredness and frequent falls. She also complained intermittent blurred vision but that has been a chronic problems and completely stroke evaluation in the recent hospitalization ruled out CVA and intracranial etiology. She is found to have hypothyroidism with significantly elevated TSH. She had a syncopal spell this time. Neurology consultation was requested to help rule out neurological etiology. Past Medical History Diabetes-Type I, High Cholesterol, Hypothyroid, Hypotension, Stroke? NEUROPATHY, ORTHOSTATIC HYPOTENSION. Cardiovascular: Hyperlipidemia. Pulmonary: COPD CENTRAL NERVOUS SYSTEM: CVA, Periperal neuropathy GI: No pertinent hx Heme/Onc: No pertinent hx Hepatobiliary: No pertinent hx Psych: No pertinent hx Musculoskeletal: Osteoarthritis Rheumatologic: No pertinent hx Infectious disease: Other Renal/: No pertinent hx Endocrine: Diabetes, Hyperthyroidism Past Surgical History L BREAST L FOOT R KNEE Thyroid nodules s/p surgery. Family History Diabetes, High Cholesterol, Hypertension Allergies Coded Allergies: atorvastatin (Verified Allergy, Severe, throat swells, 10/13/18) ciprofloxacin (Verified Allergy, Severe, "THROAT CLOSES UP" ANAPHYLAXIS, 10/13/18) hydroxyzine (Verified Allergy, Severe, DIZZINESS, "I FEEL LIKE IM DRUNK", 10/13/18) lidocaine (Verified Allergy, Severe, THROAT SWELLING, 02/28/19) raspberry (Verified Allergy, Severe, CHOKING SENSATION IN THROAT, 10/13/18) tramadol (Verified Allergy, Severe, VOMITING, 10/13/18) amoxicillin (Verified Allergy, Intermediate, 10/13/18) aspirin (Verified Allergy, Intermediate, 10/13/18) cephalexin (Verified Allergy, Intermediate, 10/13/18) codeine (Verified Allergy, Intermediate, 10/13/18) ibuprofen (Verified Allergy, Intermediate, 10/13/18) morphine (Verified Allergy, Intermediate, 10/13/18) simvastatin (Verified Allergy, Intermediate, 10/13/18) LEGS BUCKEL, LOSE FEELING sucralose (Verified Allergy, Intermediate, 11/09/18) pregabalin (Verified Allergy, Mild, vomiting, 10/13/18) MEDICATIONS: Refer to MAR SOCIAL HISTORY: Lives at home. Denies current smoking, drinking, and illicit drug use. REVIEW OF SYSTEMS: Constitutional: No malnutrition, weight loss, cachexia. Head: No traumatic brain or head injury. Skin: No edema, or rash. Ear: No infection. Eyes: No vision loss or color blindness. Nose: No bleeding or purulent discharges. Hearing: No hearing decrease. Neck: No injury. Breast: No history of cancer, masses,or discharges. Cardiac: No DC, arrhythmia,claudication, CAD. Pulmonary: COPD. GI: No GI ulcer, GI bleeding. Urinary/genital: UTI. Endocrinologic: No cousin face, craniofacial dysmorphism, polydactyly. Skeletomuscular: No muscular atrophy, deformity. Neurological: see HP. Psychiatric: Denies drug use/abuse. Otherwise, not [id number] review of systems. PHYSICAL EXAMINATION: General appearance is in no acute distress. HEENT: Normocephalic and nontraumatic. Eyes, nose, ears, and throat are unremarkable. Neck is supple. No lymphadenopathy. No bruits are heard over the carotid artery. No crepitus. Cardiovascular: S1, S2, regular rate and rhythm. Pulmonary: Clear to auscultation bilaterally. Abdomen: Bowel sounds are positive. Abdomen is soft, nontender, and nondistend ed. Extremities: No rash, lesions, or edema. No restriction of range of motion NEUROLOGICAL EXAMINATION: Alert Oriented to time, place and person. PERRL. EOMI. CN: Left palsy. Muscle tone: within normal. Muscle strength: 4+ DTR: 1+ UE, 0-1 at knee. Plantar reflex: Flexor response bilaterally Gait: At baseline normal. Sensory exam: no abnormal findings. No cerebellar signs elicited. F-T-N test fine. Current Medications Current Medications Current Medications Potassium Chloride (Klor-Con) 40 meq 1X ONCE PO ; Start 05/22/19 at 12:00; Stop 05/22/19 at 12:35; Status DC Sodium Chloride 1,000 ml @ 100 mls/hr 1X ONCE IV Last administered on 05/22/19at 12:22; Start 05/22/19 at 12:00; Stop 05/22/19 at 21:59; Status DC Fentanyl Citrate (Fentanyl 2ml Vial) 50 mcg 1X ONCE IVP Last administered on 05/22/19at 12:22; Start 05/22/19 at 12:30; Stop 05/22/19 at 12:31; Status DC Potassium Bicarbonate (Potassium Effervescent Tablet) 40 meq 1X ONCE PO Last administered on 05/22/19at 15:52; Start 05/22/19 at 12:45; Stop 05/22/19 at 12:46; Status DC Amitriptyline HCl (Elavil) 50 mg QHS PO Last administered on 05/22/19at 22:23; Start 05/22/19 at 21:00 Clopidogrel Bisulfate (Plavix) 75 mg DAILYWBKFT PO Last administered on 05/23/19at 09:29; Start 05/23/19 at 08:00 Fludrocortisone Acetate (Florinef) 0.1 mg DAILY PO Last administered on 05/23/19at 09:29; Start 05/23/19 at 09:00 Gabapentin (Neurontin) 600 mg HS PO Last administered on 05/22/19at 22:22; Start 05/22/19 at 21:00 Acetaminophen/ Hydrocodone Bitart (Lortab 5/325) 1 tab PRN Q6HRS PRN PO MODERATE PAIN Last administered on 05/23/19at 11:48; Start 05/22/19 at 16:15 Hyoscyamine (Anaspaz) 0.125 mg PRN Q4HRS PRN PO STOMACH CRAMPING; Start 05/22/19 at 16:15 Levothyroxine Sodium (Synthroid) 200 mcg HS PO Last administered on 05/22/19at 22:22; Start 05/22/19 at 21:00 Insulin Human Lispro (HumaLOG) 1 units TIDWMEALS SQ ; Start 05/22/19 at 18:00; Stop 05/22/19 at 17:49; Status DC Insulin Glargine (Lantus Syringe) 15 unit QHS SQ Last administered on 05/22/19at 22:28; Start 05/22/19 at 21:00; Stop 05/23/19 at 15:39; Status DC Non-Formulary Medication (Lovastatin ) 10 mg HS PO ; Start 05/22/19 at 21:00 Ondansetron HCl (Zofran Odt) 4 mg PRN Q8HRS PRN PO NAUSEA/VOMITING; Start 05/22/19 at 16:30 Insulin Human Lispro (HumaLOG) 0-5 UNITS TIDWMEALS SQ Last administered on at 18:20; Start 05/22/19 at 18:00; Stop 05/23/19 at 11:13; Status DC Dextrose (Dextrose 50%-Water Syringe) 12.5 gm PRN Q15MIN PRN IV SEE COMMENTS; Start 05/22/19 at 18:00; Stop 05/23/19 at 15:43; Status DC Dextrose (Iv Dextrose 5%) 250 ml PRN Q15MIN PRN IV SEE COMMENTS; Start 05/22/19 at 18:00 Acetaminophen (Tylenol) 500 mg PRN Q6HRS PRN PO MILD PAIN / TEMP; Start 0 at 11:15 Ondansetron HCl (Zofran) 4 mg PRN Q6HRS PRN IVP NAUSEA/VOMITING; Start 05/23/19 at 11:15 Insulin Human Lispro (HumaLOG) 0-9 UNITS TIDWMEALS SQ Last administered on 05/23/19at 12:00; Start 05/23/19 at 12:00; Stop 05/23/19 at 15:42; Status DC Dextrose (Dextrose 50%-Water Syringe) 12.5 gm PRN Q15MIN PRN IV SEE COMMENTS; Start 05/23/19 at 11:15 Dextrose (Iv Dextrose 5%) 250 ml PRN Q15MIN PRN IV SEE COMMENTS; Start 05/23/19 at 11:15 Magnesium Sulfate 50 ml @ 25 mls/hr 1X ONCE IV Last administered on 05/23/19at 13:54; Start 05/23/19 at 13:45; Stop 05/23/19 at 15:44; Status DC Labetalol HCl (Normodyne Iv Push) 20 mg PRN Q2HR PRN IVP HYPERTENSION; Start 05/23/19 at 14:45; Stop 05/23/19 at 15:47; Status DC Labetalol HCl (Normodyne Iv Push) 20 mg 1X ONCE IVP ; Start 05/23/19 at 15:00; Stop 05/23/19 at 15:01; Status DC Potassium Chloride (Klor-Con) 20 meq 1X ONCE PO ; Start 05/23/19 at 15:00; Stop 05/23/19 at 15:01; Status DC Non-Formulary Medication 1 ea QHS SQ ; Start 05/23/19 at 21:00 Non-Formulary Medication 0-9 UNITS TIDWMEALS SQ ; Start 05/23/19 at 15:42 Labetalol HCl (Normodyne Iv Push) 10 mg PRN Q2HR PRN IVP HYPERTENSION; Start 05/23/19 at 16:00 Active Scripts Active Hydrocodone-Apap 5-325 (Hydrocodone Bit/Acetaminophen) 1 Tab Tablet 1 Tab PO PRN Q6HRS PRN 6 Days Clopidogrel (Clopidogrel Bisulfate) 75 Mg Tablet 75 Mg PO DAILYWBKFT 30 Days Anaspaz (Hyoscyamine Sulfate) 0.125 Mg Tab.rapdis 0.125 Mg PO PRN Q4HRS PRN 30 Days Zofran (Ondansetron Hcl) 4 Mg Tablet 1 Tab PO PRN Q6-8HRS Fludrocortisone Acetate 0.1 Mg Tablet 0.1 Mg PO DAILY 30 Days Amitriptyline Hcl 25 Mg Tablet 50 Mg PO QHS 30 Days Reported Basaglar Kwikpen U-100 (Insulin Glargine,Hum.rec.anlog) 100 Unit/1 Ml Insuln.pen 15 Unit SQ HS Levothyroxine Sodium 100 Mcg Tablet 200 Mcg PO HS Novolog Flexpen (Insulin Aspart) 100 Unit/1 Ml Insuln.pen 1 Unit SQ TIDAC PER SLIDING SCALE Lovastatin 10 Mg Tablet 10 Mg PO HS Gabapentin (Gabapentin) 300 Mg Capsule 600 Mg PO HS Allergies Allergies: Allergies Coded Allergies Type Severity Reaction Last Updated Verified atorvastatin Allergy Severe throat swells 10/13/18 Yes ciprofloxacin Allergy Severe "THROAT CLOSES UP" ANAPHYLAXIS 10/13/18 Yes hydroxyzine Allergy Severe DIZZINESS, "I FEEL LIKE IM DRUNK" 10/13/18 Yes ketorolac Allergy Severe 04/04/19 Yes lidocaine Allergy Severe THROAT SWELLING 02/28/19 Yes raspberry Allergy Severe CHOKING SENSATION IN THROAT 10/13/18 Yes tramadol Allergy Severe VOMITING 10/13/18 Yes amoxicillin Allergy Intermediate 10/13/18 Yes aspirin Allergy Intermediate 10/13/18 Yes cephalexin Allergy Intermediate 10/13/18 Yes codeine Allergy Intermediate 10/13/18 Yes ibuprofen Allergy Intermediate 10/13/18 Yes morphine Allergy Intermediate 10/13/18 Yes simvastatin Allergy Intermediate 10/13/18 Yes sucralose Allergy Intermediate 11/09/18 Yes pregabalin Allergy Mild vomiting 10/13/18 Yes ROS Review of System The patient denies any associated fevers, chills, headache, ear pain, rhinorrhea, sore throat, stiff neck, productive cough, chest pain, shortness of breath, back or flank pain, abdominal pain, nausea, vomiting, diarrhea, constipation, dysuria, rash, numbness, weakness, tingling, incontinence, difficulty ambulating, or diaphoresis. Physical Exam Physical Exam General: Well developed, well nourished, no acute distress, well appearing HEENT: Pupils equally round and reactive to light, EOMI, no discharge, normal conjunctiva Neck: Supple, no nuchal rigidity, no JVD, trachea midline, no tenderness Cardiac: RRR, no murmurs, no gallops, no rubs Chest/Lungs: CTAB, no wheeze, no rhonchi, no crackles Abdomen: soft, non-distended, no guarding, no peritoneal signs, non-tender Back: No tenderness Extremities: no edema, pulses intact, non-tender,capillary refill <3 sec bilateral upper and lower extremities, Neuro: Alert and oriented x 4, no focal deficits, normal speech Vitals Vitals: Vital Signs Date Time Temp Pulse Resp B/P (MAP) Pulse Ox O2 Delivery O2 Flow Rate FiO2 05/23/19 15:45 87 123/65 (84) 05/23/19 15:00 97.7 18 100 Room Air 97.7 Labs Labs Laboratory Tests Test 05/22/19 10:15 05/22/19 18:15 05/22/19 21:28 05/23/19 07:35 White Blood Count 5.1 x10^3/uL (4.0-11.0) Red Blood Count 4.63 x10^6/uL (3.50-5.40) Hemoglobin 12.2 g/dL (12.0-15.5) Hematocrit 37.8 % (36.0-47.0) Mean Corpuscular Volume 82 fL (79-100) Mean Corpuscular Hemoglobin 26 pg (25-35) Mean Corpuscular Hemoglobin Concent 32 g/dL (31-37) Red Cell Distribution Width 14.0 % (11.5-14.5) Platelet Count 284 x10^3/uL (140-400) Neutrophils (%) (Auto) 55 % (31-73) Lymphocytes (%) (Auto) 32 % (24-48) Monocytes (%) (Auto) 10 % (0-9) Eosinophils (%) (Auto) 2 % (0-3) Basophils (%) (Auto) 1 % (0-3) Neutrophils # (Auto) 2.8 x10^3/uL (1.8-7.7) Lymphocytes # (Auto) 1.6 x10^3/uL (1.0-4.8) Monocytes # (Auto) 0.5 x10^3/uL (0.0-1.1) Eosinophils # (Auto) 0.1 x10^3/uL (0.0-0.7) Basophils # (Auto) 0.0 x10^3/uL (0.0-0.2) Prothrombin Time 13.7 SEC (11.7-14.0) Prothromb Time International Ratio 1.1 (0.8-1.1) Sodium Level 141 mmol/L (136-145) Potassium Level 3.1 mmol/L (3.5-5.1) Chloride Level 101 mmol/L (98-107) Carbon Dioxide Level 32 mmol/L (21-32) Anion Gap 8 (6-14) Blood Urea Nitrogen 15 mg/dL (7-20) Creatinine 0.6 mg/dL (0.6-1.0) Estimated GFR (Cockcroft-Gault) 103.0 BUN/Creatinine Ratio 25 (6-20) Glucose Level 189 mg/dL (70-99) Calcium Level 9.2 mg/dL (8.5-10.1) Magnesium Level 1.6 mg/dL (1.8-2.4) Total Bilirubin 0.3 mg/dL (0.2-1.0) Aspartate Amino Transf (AST/SGOT) 31 U/L (15-37) Alanine Aminotransferase (ALT/SGPT) 26 U/L (14-59) Alkaline Phosphatase 243 U/L (46-116) Creatine Kinase 241 U/L (26-192) Troponin I Quantitative < 0.017 ng/mL (0.000-0.055) FR-Iqi-J-Type Natriuretic Peptide 560 pg/mL (0-124) Total Protein 7.0 g/dL (6.4-8.2) Albumin 3.0 g/dL (3.4-5.0) Albumin/Globulin Ratio 0.8 (1.0-1.7) Lipase 113 U/L (73-393) Glucose (Fingerstick) 249 mg/dL (70-99) 169 mg/dL (70-99) 119 mg/dL (70-99) Test 05/23/19 11:35 05/23/19 12:15 05/23/19 12:20 05/23/19 16:32 Glucose (Fingerstick) 164 mg/dL (70-99) 157 mg/dL (70-99) Sodium Level 141 mmol/L (136-145) Potassium Level 3.5 mmol/L (3.5-5.1) Chloride Level 103 mmol/L (98-107) Carbon Dioxide Level 31 mmol/L (21-32) Anion Gap 7 (6-14) Blood Urea Nitrogen 14 mg/dL (7-20) Creatinine 0.7 mg/dL (0.6-1.0) Estimated GFR (Cockcroft-Gault) 86.2 Glucose Level 168 mg/dL (70-99) Calcium Level 8.6 mg/dL (8.5-10.1) Magnesium Level 1.7 mg/dL (1.8-2.4) Urine Collection Type Unknown Urine Color Yellow Urine Clarity Clear Urine pH 6.5 Urine Specific Dwight 1.020 Urine Protein >=300 mg/dL (NEG-TRACE) Urine Glucose (UA) 100 mg/dL (NEG) Urine Ketones (Stick) Negative mg/dL (NEG) Urine Blood Small (NEG) Urine Nitrite Negative (NEG) Urine Bilirubin Negative (NEG) Urine Urobilinogen Dipstick 0.2 mg/dL (0.2 mg/dL) Urine Leukocyte Esterase Negative (NEG) Urine RBC 11-20 /HPF (0-2) Urine WBC 5-10 /HPF (0-4) Urine Squamous Epithelial Cells Many /LPF Urine Bacteria Many /HPF (0-FEW) Urine Mucus Marked /LPF Urine Opiates Screen Pos (NEG) Urine Methadone Screen Neg (NEG) Urine Barbiturates Neg (NEG) Urine Phencyclidine Screen Neg (NEG) Urine Amphetamine/Methamphetamine Neg (NEG) Urine Benzodiazepines Screen Neg (NEG) Urine Cocaine Screen Neg (NEG) Urine Cannabinoids Screen Neg (NEG) Urine Ethyl Alcohol Neg (NEG) Laboratory Tests Test 05/22/19 18:15 05/22/19 21:28 05/23/19 07:35 05/23/19 11:35 Glucose (Fingerstick) 249 mg/dL (70-99) 169 mg/dL (70-99) 119 mg/dL (70-99) 164 mg/dL (70-99) Test 05/23/19 12:15 05/23/19 12:20 05/23/19 16:32 Sodium Level 141 mmol/L (136-145) Potassium Level 3.5 mmol/L (3.5-5.1) Chloride Level 103 mmol/L (98-107) Carbon Dioxide Level 31 mmol/L (21-32) Anion Gap 7 (6-14) Blood Urea Nitrogen 14 mg/dL (7-20) Creatinine 0.7 mg/dL (0.6-1.0) Estimated GFR (Cockcroft-Gault) 86.2 Glucose Level 168 mg/dL (70-99) Calcium Level 8.6 mg/dL (8.5-10.1) Magnesium Level 1.7 mg/dL (1.8-2.4) Urine Collection Type Unknown Urine Color Yellow Urine Clarity Clear Urine pH 6.5 Urine Specific Dwight 1.020 Urine Protein >=300 mg/dL (NEG-TRACE) Urine Glucose (UA) 100 mg/dL (NEG) Urine Ketones (Stick) Negative mg/dL (NEG) Urine Blood Small (NEG) Urine Nitrite Negative (NEG) Urine Bilirubin Negative (NEG) Urine Urobilinogen Dipstick 0.2 mg/dL (0.2 mg/dL) Urine Leukocyte Esterase Negative (NEG) Urine RBC 11-20 /HPF (0-2) Urine WBC 5-10 /HPF (0-4) Urine Squamous Epithelial Cells Many /LPF Urine Bacteria Many /HPF (0-FEW) Urine Mucus Marked /LPF Urine Opiates Screen Pos (NEG) Urine Methadone Screen Neg (NEG) Urine Barbiturates Neg (NEG) Urine Phencyclidine Screen Neg (NEG) Urine Amphetamine/Methamphetamine Neg (NEG) Urine Benzodiazepines Screen Neg (NEG) Urine Cocaine Screen Neg (NEG) Urine Cannabinoids Screen Neg (NEG) Urine Ethyl Alcohol Neg (NEG) Glucose (Fingerstick) 157 mg/dL (70-99) HARDY SHEPARD MD May 23, 2019 17:41
[2019-05-23] MEDS: NOVOLOG INSULIN PEN SQ SCH (17:59)
[2019-05-23 20:32] LABS: FREE T4 1.16 ng/dL (0.76-1.46); THYROID STIM HORMONE (TSH) 22.694 uIU/mL (0.358-3.74)
[2019-05-23] MEDS ORDERED: BASAGLAR INSULIN SQ SCH (21:00)
[2019-05-23] MEDS: Lovastatin 10 MG PO SCH (21:23)
[2019-05-23] MEDS: GABAPENTIN 300 MG CAPSULE. PO SCH (21:24)
[2019-05-23] MEDS: LEVOTHYROXINE 100 MCG TABLET PO SCH (21:24)
[2019-05-23] MEDS: AMITRIPTYLINE HCL 25 MG TABLET. PO SCH (21:24)
[2019-05-24 03:45] VITALS: BP 124/71
[2019-05-24 07:00] VITALS: BP 161/65
[2019-05-24] MEDS: NOVOLOG INSULIN PEN SQ SCH ×2 (08:00→12:18)
[2019-05-24] MEDS: FLUDROCORTISONE 0.1 MG TABLET PO SCH (08:47)
[2019-05-24] MEDS: CLOPIDOGREL BISULFATE 75 MG TABLET PO SCH (08:47)
[2019-05-24] MEDS: HYDROcodone/APAP 5/325MG 1 TAB TABLET PO PRN (08:48)
[2019-05-24 11:00] VITALS: BP 156/93
[2019-05-24] MEDS ORDERED: HYDR-2761 PO (12:31)
--- NOTE | 2019-05-24 12:32 | SNU/HH DC ---
DISCHARGE ORDERS DISCHARGE INFORMATION: DISCHARGE DATE: May 24, 2019 FINAL DIAGNOSIS Problems Medical Problems: (1) Dizziness Status: Acute (2) Elevated CK Status: Acute (3) Hip injury Status: Acute (4) Hypokalemia Status: Acute (5) Hypomagnesemia Status: Acute (6) Syncope Status: Acute CONDITION ON DISCHARGE: Stable CODE STATUS: Code Status: Full INTERMEDIATE: SNF STAY <30 DAYS: Yes HOSPICE: HOSPICE: No HOSPICE EVAL & TREAT: No LTAC: ADMIT TO LTAC: No POST DISCHARGE ORDERS: ACTIVITY ORDERS: Progressive ambulation WEIGHT BEARING STATUS: As tolerated BATHING ORDERS: Shower-keep dressing dry DIET AFTER DISCHARGE: Regular WOUND/INCISION CARE: No wound care needed CHECKS AFTER DISCHARGE: CHECKS AFTER DISCHARGE: Check blood press - daily, Check blood sugar, ac/hs FOLLOW-UP: PHYSICIAN FOLLOW-UP: WOF orthostatis, VERY gait unstable TREATMENT/EQUIPMENT ORDERS: ADAPTIVE EQUIPMENT NEEDED: None Physical Therapy For: Evalulation/Treatment Occupational Therapy For: Evaluation/Treatment Speech Language Pathology For: Evaluation/Treatment DISCHARGE MEDICATIONS: Home Meds Active Scripts Hydrocodone Bit/Acetaminophen (HYDROCODONE-APAP 5-325 ) 1 Tab Tablet, 1 TAB PO PRN Q6HRS PRN for MODERATE PAIN for 6 Days, #15 TAB Prov:REGINA DAVID MD 05/24/19 Clopidogrel Bisulfate (CLOPIDOGREL) 75 Mg Tablet, 75 MG PO DAILYWBKFT for PVD for 30 Days, #30 TAB Prov:JUAN PABLO WANG MD 05/02/19 Hyoscyamine Sulfate (ANASPAZ) 0.125 Mg Tab.rapdis, 0.125 MG PO PRN Q4HRS PRN for STOMACH CRAMPING for 30 Days, #120 TAB Prov:JUAN PABLO WANG MD 05/02/19 Ondansetron Hcl (ZOFRAN) 4 Mg Tablet, 1 TAB PO PRN Q6-8HRS for nausea, #12 TAB Prov:PAXTON RATLIFF MD 03/29/19 Fludrocortisone Acetate (FLUDROCORTISONE ACETATE) 0.1 Mg Tablet, 0.1 MG PO DAILY for orthostasis for 30 Days, #30 TAB Prov:PARMINDER LARSON MD 01/22/19 Amitriptyline Hcl (AMITRIPTYLINE HCL) 25 Mg Tablet, 50 MG PO QHS for sleep for 30 Days, #60 TAB Prov:PARMINDER LARSON MD 01/22/19 Reported Medications Insulin Glargine,Hum.rec.anlog (Basaglar Kwikpen U-100) 100 Unit/1 Ml Insuln.pen, 15 UNIT SQ HS for diabetes, EACH 05/22/19 Levothyroxine Sodium (LEVOTHYROXINE SODIUM) 100 Mcg Tablet, 200 MCG PO HS for THYROID SUPPLEMENT, #30 TAB 0 Refills 02/16/19 Insulin Aspart (NOVOLOG FLEXPEN) 100 Unit/1 Ml Insuln.pen, 1 UNIT SQ TIDAC for diabetes, SYR PER SLIDING SCALE 09/23/18 Lovastatin (LOVASTATIN) 10 Mg Tablet, 10 MG PO HS for cholsterol, TAB 08/23/18 Gabapentin (GABAPENTIN ) 300 Mg Capsule, 600 MG PO HS for NEUROGENIC PAIN, CAP 06/07/18 REGINA DAVID MD May 24, 2019 12:32
--- NOTE | 2019-05-24 12:35 | PDOC3 ---
Discharge Summary Visit Information Date of Admission: May 22, 2019 Date of Discharge: May 24, 2019 Admitting Diagnosis Comment: 1. Syncope: due to orthostasis 2. SH-OH syndrome 3. Autonomic dysfunction 4. Multiple syncopal falls 5. Leg edema: rule out DVT with associated multiple falls. 6. PVCs r/t low K and Mg 7. Hypothyroidism Final Diagnosis Problems Medical Problems: (1) Dizziness Status: Acute (2) Elevated CK Status: Acute (3) Hip injury Status: Acute (4) Hypokalemia Status: Acute (5) Hypomagnesemia Status: Acute (6) Syncope Status: Acute Brief Hospital Course Allergies Allergies Coded Allergies Type Severity Reaction Last Updated Verified atorvastatin Allergy Severe throat swells 10/13/18 Yes ciprofloxacin Allergy Severe "THROAT CLOSES UP" ANAPHYLAXIS 10/13/18 Yes hydroxyzine Allergy Severe DIZZINESS, "I FEEL LIKE IM DRUNK" 10/13/18 Yes ketorolac Allergy Severe 04/04/19 Yes lidocaine Allergy Severe THROAT SWELLING 02/28/19 Yes raspberry Allergy Severe CHOKING SENSATION IN THROAT 10/13/18 Yes tramadol Allergy Severe VOMITING 10/13/18 Yes amoxicillin Allergy Intermediate 10/13/18 Yes aspirin Allergy Intermediate 10/13/18 Yes cephalexin Allergy Intermediate 10/13/18 Yes codeine Allergy Intermediate 10/13/18 Yes ibuprofen Allergy Intermediate 10/13/18 Yes morphine Allergy Intermediate 10/13/18 Yes simvastatin Allergy Intermediate 10/13/18 Yes sucralose Allergy Intermediate 11/09/18 Yes pregabalin Allergy Mild vomiting 10/13/18 Yes Vital Signs Vital Signs Date Time Temp Pulse Resp B/P (MAP) Pulse Ox O2 Delivery O2 Flow Rate FiO2 05/24/19 11:00 98.6 88 16 156/93 (114) 99 Room Air 98.6 Lab Results Laboratory Tests Test 05/22/19 18:15 05/22/19 21:28 05/23/19 07:35 05/23/19 11:35 Glucose (Fingerstick) 249 mg/dL (70-99) 169 mg/dL (70-99) 119 mg/dL (70-99) 164 mg/dL (70-99) Test 05/23/19 12:12 05/23/19 12:15 05/23/19 12:20 05/23/19 16:32 Thyroid Stimulating Hormone (TSH) 22.694 uIU/mL (0.358-3.74) Free Thyroxine 1.16 ng/dL (0.76-1.46) Free Triiodothyronine (T3) pg/mL 1.13 pg/mL (2.18-3.98) Sodium Level 141 mmol/L (136-145) Potassium Level 3.5 mmol/L (3.5-5.1) Chloride Level 103 mmol/L (98-107) Carbon Dioxide Level 31 mmol/L (21-32) Anion Gap 7 (6-14) Blood Urea Nitrogen 14 mg/dL (7-20) Creatinine 0.7 mg/dL (0.6-1.0) Estimated GFR (Cockcroft-Gault) 86.2 Glucose Level 168 mg/dL (70-99) Calcium Level 8.6 mg/dL (8.5-10.1) Magnesium Level 1.7 mg/dL (1.8-2.4) Urine Collection Type Unknown Urine Color Yellow Urine Clarity Clear Urine pH 6.5 Urine Specific Rector 1.020 Urine Protein >=300 mg/dL (NEG-TRACE) Urine Glucose (UA) 100 mg/dL (NEG) Urine Ketones (Stick) Negative mg/dL (NEG) Urine Blood Small (NEG) Urine Nitrite Negative (NEG) Urine Bilirubin Negative (NEG) Urine Urobilinogen Dipstick 0.2 mg/dL (0.2 mg/dL) Urine Leukocyte Esterase Negative (NEG) Urine RBC 11-20 /HPF (0-2) Urine WBC 5-10 /HPF (0-4) Urine Squamous Epithelial Cells Many /LPF Urine Bacteria Many /HPF (0-FEW) Urine Mucus Marked /LPF Urine Opiates Screen Pos (NEG) Urine Methadone Screen Neg (NEG) Urine Barbiturates Neg (NEG) Urine Phencyclidine Screen Neg (NEG) Urine Amphetamine/Methamphetamine Neg (NEG) Urine Benzodiazepines Screen Neg (NEG) Urine Cocaine Screen Neg (NEG) Urine Cannabinoids Screen Neg (NEG) Urine Ethyl Alcohol Neg (NEG) Glucose (Fingerstick) 157 mg/dL (70-99) Test 05/23/19 21:01 05/24/19 07:17 05/24/19 11:30 Glucose (Fingerstick) 187 mg/dL (70-99) 125 mg/dL (70-99) 184 mg/dL (70-99) Laboratory Tests Test 05/23/19 16:32 05/23/19 21:01 05/24/19 07:17 05/24/19 11:30 Glucose (Fingerstick) 157 mg/dL (70-99) 187 mg/dL (70-99) 125 mg/dL (70-99) 184 mg/dL (70-99) Brief Hospital Course Ms. Wright is a 59 old white female, known to me, admitted bec of her chronic med issues that leaves her gain unstable, BUT her admission dx likely just bills for oBS status, She is known to our cards group (See above final dx), SHe can be orthostatic, 120s upright, 160s supine, She qualified for [facility]. COnt home synthroid and other BP meds, FAll risk, wof orthostasis, dispO; [facility] COnslts: cards PRoc nothing special dc < 30 Discharge Information Condition at Discharge: Improved, Stable Disposition/Orders: Other ([facility]) Scheduled Amitriptyline Hcl (Amitriptyline Hcl) 25 Mg Tablet, 50 MG PO QHS for sleep for 30 Days, #60 Prescribed by: PARMINDER LARSON MD on 01/22/19 1357 Last Action: Continued on 05/22/19 161 by WENDY BARNES Clopidogrel Bisulfate (Clopidogrel) 75 Mg Tablet, 75 MG PO DAILYWBKFT for PVD for 30 Days, #30 Prescribed by: JUAN PABLO WANG MD on 05/02/19 1542 Last Action: Continued on 05/22/19 1616 by WENDY BARNES Fludrocortisone Acetate (Fludrocortisone Acetate) 0.1 Mg Tablet, 0.1 MG PO DAILY for orthostasis for 30 Days, #30 Prescribed by: PARMINDER LARSON MD on 01/22/19 1357 Last Action: Continued on 05/22/19 161 by WENDY BARNES Gabapentin (Gabapentin ) 300 Mg Capsule, 600 MG PO HS for NEUROGENIC PAIN, (Reported) Entered as Reported by: INNA SETHI on 06/07/182234 Last Action: Continued on 05/22/19 161 by WENDY BARNES Insulin Aspart (Novolog Flexpen) 100 Unit/1 Ml Insuln.pen, 1 UNIT SQ TIDAC for diabetes, (Reported) PER SLIDING SCALE Entered as Reported by: RHETT CASTELLON on 09/23/18 1408 Last Action: Converted on 05/22/191615 by WENDY BARNES Insulin Glargine,Hum.rec.anlog (Basaglar Kwikpen U-100) 100 Unit/1 Ml Insuln.pen, 15 UNIT SQ HS for diabetes, (Reported) Entered as Reported by: WENDY BARNES on 05/22/19 1430 Last Taken: Unknown Dose on Unknown Date & Time Last Action: Converted on 05/22/191615 by WENDY BARNES Levothyroxine Sodium (Levothyroxine Sodium) 100 Mcg Tablet, 200 MCG PO HS for THYROID SUPPLEMENT, #30 Ref 0 (Reported) Entered as Reported by: XENA SANCHEZ on 02/16/191949 Last Action: Continued on 05/22/191615 by WENDY BARNES Lovastatin (Lovastatin) 10 Mg Tablet, 10 MG PO HS for cholsterol, (Reported) Entered as Reported by: Lucho Loya on 08/23/182143 Last Action: Converted on 05/22/191615 by WENDY BARNES Ondansetron Hcl (Zofran) 4 Mg Tablet, 1 TAB PO PRN Q6-8HRS for nausea, #12 Prescribed by: PAXTON RATLIFF MD on 03/29/19 1540 Last Action: Converted on 05/22/191615 by WENDY BARNES Scheduled PRN Hydrocodone Bit/Acetaminophen (Hydrocodone-Apap 5-325 ) 1 Tab Tablet, 1 TAB PO PRN Q6HRS PRN for MODERATE PAIN for 6 Days, #15 Prescribed by: REGINA DAVID on 05/24/19 1231 Hyoscyamine Sulfate (Anaspaz) 0.125 Mg Tab.rapdis, 0.125 MG PO PRN Q4HRS PRN for STOMACH CRAMPING for 30 Days, #120 Prescribed by: JUAN PABLO WANG MD on 05/02/19 154 Last Action: Continued on 05/22/191615 by REGINA GREGORY MD May 24, 2019 12:35
--- NOTE | 2019-05-24 13:31 | PDOC ---
CARDIO Progress Notes Date and Time Date of Service 05/24/19 Time of Evaluation 1310 Subjective Subjective: No Chest Pain, No shortness of breath, No Palpitations, No Dizziness Vitals Vitals Vital Signs Date Time Temp Pulse Resp B/P (MAP) Pulse Ox O2 Delivery O2 Flow Rate FiO2 05/24/19 11:00 98.6 88 16 156/93 (114) 99 Room Air 98.6 Weight Weight [ ] Input and Output Intake and Output Intake and Output 05/24/19 07:00 Intake Total 1250 ml Balance 1250 ml Intake Oral 1250 ml # Voids 5 Laboratory Labs Laboratory Tests Test 05/23/19 16:32 05/23/19 21:01 05/24/19 07:17 05/24/19 11:30 Glucose (Fingerstick) 157 mg/dL (70-99) 187 mg/dL (70-99) 125 mg/dL (70-99) 184 mg/dL (70-99) Physical Exam HEENT: Neck Supple W Full Motion Chest: Symmetric LUNGS: Clear to Auscultation Heart: S1S2, RRR Abdomen: Soft N/T Extremities: Other (trace bilateral LE edema ) Neurology: alert, oriented, follow commands Assessment Assessment 1. Syncope: due to orthostasis. NO acute events on tele 2. SH-OH syndrome 3. Autonomic dysfunction 4. Multiple syncopal falls 5. Leg edema; LE doppler negative for DVT 6. Hypothyroidism; TSH 22. as per PCP Recommendations Change positions slowly LE compression stocking May discharge from a CV standpoint Will plan for outpatient ILR placement for long-term rhythm monitoring Follow up in our office 06/28/19 at 9:15pm with ROSALBA Gonzales APRN May 24, 2019 13:31
--- NOTE | 2019-05-24 13:39 | PDOC ---
PROGRESS NOTES Assessment Assessment Generalized weakness. Diplopia. Left palsy. Hypothyroidism, TSH 74.18 on 04/24/19. Falls. Orthostatic hypotension. Hyperglycemia. HTN. HLD. COPD. Peripheral neuropathy. Hepatomegaly. Degenerative spine disease. RECOMMENDATIONS/PLAN: Treat medical diseases. Treat hypothyroidism. OT/PT. EEG on 05/23/19: Borderline normal. MRI/MRA on 04/04/19 were negative. HISTORY OF THE PRESENT ILLNESS: This is a 59-year-old female patient was here in the hospital last month with complaints of generalized weakness, diplopia, fatigue, tiredness and frequent falls. She also complained intermittent blurred vision but that has been a chronic problems and completely stroke evaluation in the recent hospitalization ruled out CVA and intracranial etiology. She is found to have hypothyroidism with significantly elevated TSH. She had a syncopal spell this time. Neurology consultation was requested to help rule out neurological etiology. 05/24/19: No new neurological deficits. Past Medical History Diabetes-Type I, High Cholesterol, Hypothyroid, Hypotension, Stroke? NEUROPATHY, ORTHOSTATIC HYPOTENSION. Cardiovascular: Hyperlipidemia. Pulmonary: COPD CENTRAL NERVOUS SYSTEM: CVA, Periperal neuropathy GI: No pertinent hx Heme/Onc: No pertinent hx Hepatobiliary: No pertinent hx Psych: No pertinent hx Musculoskeletal: Osteoarthritis Rheumatologic: No pertinent hx Infectious disease: Other Renal/: No pertinent hx Endocrine: Diabetes, Hyperthyroidism Past Surgical History L BREAST L FOOT R KNEE Thyroid nodules s/p surgery. Family History Diabetes, High Cholesterol, Hypertension Allergies Coded Allergies: atorvastatin (Verified Allergy, Severe, throat swells, 10/13/18) ciprofloxacin (Verified Allergy, Severe, "THROAT CLOSES UP" ANAPHYLAXIS, 10/13/18) hydroxyzine (Verified Allergy, Severe, DIZZINESS, "I FEEL LIKE IM DRUNK", 10/13/18) lidocaine (Verified Allergy, Severe, THROAT SWELLING, 02/28/19) raspberry (Verified Allergy, Severe, CHOKING SENSATION IN THROAT, 10/13/18) tramadol (Verified Allergy, Severe, VOMITING, 10/13/18) amoxicillin (Verified Allergy, Intermediate, 10/13/18) aspirin (Verified Allergy, Intermediate, 10/13/18) cephalexin (Verified Allergy, Intermediate, 10/13/18) codeine (Verified Allergy, Intermediate, 10/13/18) ibuprofen (Verified Allergy, Intermediate, 10/13/18) morphine (Verified Allergy, Intermediate, 10/13/18) simvastatin (Verified Allergy, Intermediate, 10/13/18) LEGS BUCKEL, LOSE FEELING sucralose (Verified Allergy, Intermediate, 11/09/18) pregabalin (Verified Allergy, Mild, vomiting, 10/13/18) MEDICATIONS: Refer to MAR SOCIAL HISTORY: Lives at home. Denies current smoking, drinking, and illicit drug use. REVIEW OF SYSTEMS: Constitutional: No malnutrition, weight loss, cachexia. Head: No traumatic brain or head injury. Skin: No edema, or rash. Ear: No infection. Eyes: No vision loss or color blindness. Nose: No bleeding or purulent discharges. Hearing: No hearing decrease. Neck: No injury. Breast: No history of cancer, masses,or discharges. Cardiac: No FL, arrhythmia,claudication, CAD. Pulmonary: COPD. GI: No GI ulcer, GI bleeding. Urinary/genital: UTI. Endocrinologic: No cousin face, craniofacial dysmorphism, polydactyly. Skeletomuscular: No muscular atrophy, deformity. Neurological: see HP. Psychiatric: Denies drug use/abuse. Otherwise, not [id number] review of systems. PHYSICAL EXAMINATION: General appearance is in no acute distress. HEENT: Normocephalic and nontraumatic. Eyes, nose, ears, and throat are unremarkable. Neck is supple. No lymphadenopathy. No bruits are heard over the carotid artery. No crepitus. Cardiovascular: S1, S2, regular rate and rhythm. Pulmonary: Clear to auscultation bilaterally. Abdomen: Bowel sounds are positive. Abdomen is soft, nontender, and nondistended. Extremities: No rash, lesions, or edema. No restriction of range of motion NEUROLOGICAL EXAMINATION: Alert Oriented to time, place and person. PERRL. EOMI. CN: Left palsy. Muscle tone: within normal. Muscle strength: 4+ DTR: 1+ UE, 0-1 at knee. Plantar reflex: Flexor response bilaterally Gait: Not examined while in bed. Sensory exam: no abnormal findings. No cerebellar signs elicited. F-T-N test fine. Objective Objective Vital Signs Date Time Temp Pulse Resp B/P (MAP) Pulse Ox O2 Delivery O2 Flow Rate FiO2 05/24/19 11:00 98.6 88 16 156/93 (114) 99 Room Air 98.6 Intake and Output 05/24/19 07:00 Intake Total 1250 ml Balance 1250 ml Intake Oral 1250 ml # Voids 5 Vitals Signs Vitals VS - Last 72 Hours, by Label Date Time Temp Pulse Resp B/P (MAP) Pulse Ox O2 Delivery O2 Flow Rate FiO2 05/24/19 11:00 98.6 88 16 156/93 (114) 99 Room Air 98.6 05/24/19 09:48 16 Room Air 05/24/19 08:48 20 Room Air 05/24/19 07:00 98.5 105 16 161/65 (97) 98 Room Air 98.5 05/24/19 03:45 97.8 93 17 124/71 (88) 93 Room Air 97.8 05/23/19 23:45 98.0 92 18 140/82 (101) 94 Room Air 98.0 05/23/19 22:25 96 Room Air 05/23/19 21:55 Room Air 05/23/19 21:25 Room Air 05/23/19 20:10 Room Air 05/23/19 19:45 97.8 90 18 155/88 (110) 96 Room Air 97.8 05/23/19 17:49 87 169/90 05/23/19 15:45 87 123/65 (84) 05/23/19 15:38 87 152/54 (86) 05/23/19 15:35 83 161/95 (117) 05/23/19 15:00 97.7 85 18 152/90 (110) 100 Room Air 97.7 05/23/19 13:50 20 96 Room Air 05/23/19 11:48 19 99 Room Air 05/23/19 11:00 98.2 84 18 163/98 (119) 99 Room Air 98.2 05/23/19 09:30 Room Air 05/23/19 08:00 Room Air 05/23/19 07:00 97.8 87 16 153/92 (112) 96 Room Air 97.8 Laboratory Laboratory Laboratory Tests Test 05/23/19 16:32 05/23/19 21:01 05/24/19 07:17 05/24/19 11:30 Glucose (Fingerstick) 157 mg/dL (70-99) 187 mg/dL (70-99) 125 mg/dL (70-99) 184 mg/dL (70-99) Medication Medications Current Medications Labetalol HCl (Normodyne Iv Push) 10 mg PRN Q2HR PRN IVP HYPERTENSION; Start 05/23/19 at 16:00 Labetalol HCl (Normodyne Iv Push) 20 mg 1X ONCE IVP Last administered on 05/23/19at 17:49; Start 05/23/19 at 15:00; Stop 05/23/19 at 15:01; Status DC Labetalol HCl (Normodyne Iv Push) 20 mg PRN Q2HR PRN IVP HYPERTENSION; Start 05/23/19 at 14:45; Stop 05/23/19 at 15:47; Status DC Magnesium Sulfate 50 ml @ 25 mls/hr 1X ONCE IV Last administered on 05/23/19at 13:54; Start 05/23/19 at 13:45; Stop 05/23/19 at 15:44; Status DC Non-Formulary Medication 0-9 UNITS TIDWMEALS SQ Last administered on 05/24/19at 12:18; Start 05/23/19 at 15:42 Non-Formulary Medication 1 ea QHS SQ Last administered on 05/23/19at 21:26; Start 05/23/19 at 21:00 Potassium Chloride (Klor-Con) 20 meq 1X ONCE PO Last administered on 05/23/19at 17:48; Start 05/23/19 at 15:00; Stop 05/23/19 at 15:01; Status DC Comment Review of Relevant I have reviewed the following items zurdo (where applicable) has been applied. HARDY SHEPARD MD May 24, 2019 13:39
--- NOTE | 2019-05-24 13:52 | NUR ---
Ss following up with discharge planning. PT/OT recommending acute rehabilitation. Pt has had previous stay at [facility], ; fax [phone]. Pt wanting to return to [facility] but does not want to wait for insurance authorization. Pt reported that if insurance cannot authorize today she will just go home. Pt reported that she does not like home healthcare and does not want it. As observed, pt's spouse in room. Pt reported that spouse has been drinking. Pt demanding spouse to give her his car keys reporting that she will drive him home. Pt's spouse reporting that pt cannot walk and is concerned pt won't make it into home. SS notified pt that referral would be phoned and faxed to [facility]. SS phoned and faxed referral and notified RN and RN supervisor dental laboratory. SS will continue to follow for discharge planning.
--- NOTE | 2019-05-24 14:39 | NUR ---
Discharge Note: TAYLOR SARAVIA [address] [place] [address] Discharge instructions and discharge home medications reviewed with Patient and a copy given. All questions have been answered and understanding verbalized. The following instructions and handouts were given: syncope Discontinued lines and drains: peripheral line. Patient discharged to Home or Self Care withSelfvia Wheelchair
[2019-06-02] MEDS ORDERED: METO-239 PO (16:54)
[2019-06-02] MEDS ORDERED: AMIT50TA PO (16:55)
[2019-06-02] MEDS ORDERED: AMLO5TAB10 PO (16:55)
== END 2019-05-24 14:40 | disposition home or self-care (01) ==
LOC: ER 09:52 → 6 SOUTH 11:54 → OBSVTOIN 05-23 14:59 → INTOOBSV 05-23 14:59
PROVIDERS: ADMIT Internal Medicine; ATTEND Internal Medicine
DX: R55 Syncope and collapse (principal); I95.9 Hypotension, unspecified; E03.9 Hypothyroidism, unspecified; E83.42 Hypomagnesemia; E10.65 Type 1 diabetes mellitus with hyperglycemia; E78.00 Pure hypercholesterolemia, unspecified; G62.9 Polyneuropathy, unspecified; E87.6 Hypokalemia; R42 Dizziness and giddiness; E04.9 Nontoxic goiter, unspecified; Z86.73 Personal history of transient ischemic attack (TIA), and cerebral infarction without residual deficits; Z98.890 Other specified postprocedural states
CPT/HCPCS: 36415; 70450; 71045; 73502; 80048; 80053; 80307; 81001; 82550; 82962; 83690; 83735; 83880; 84439; 84443; 84481; 84484; 85025; 85610; 87086; 93005; 93970; 95816; 96361; 96365; 96366; 96372; 96375; 97110; 97162; 97167; 97535; 99284; G0378; J1815; J3010; J3475; J3490; J7030; 96374; G0379

== ENCOUNTER 2019-06-22 10:09 | Emergency (ER) | payer OTHER ==
[~2019-06-22] VITALS: Ht 162.6 cm; Wt 68.0 kg
[~2019-06-22 10:09] MED LIST changes: +AMLO5TAB10 PO; +METO-239 PO
[2019-06-22] MEDS ORDERED: IV NORMAL SALINE 1000ML BAG 1,000 ML IV ONE (10:30)
--- NOTE | 2019-06-22 11:05 | EKG ---
[facility] [address] [place] [address] Test Date: 2019-06-22 Test Time: 10:56:23 Pat Name: TAYLOR SARAVIA Department: Room: Gender: F [employer]: : 1960 Requested By: CATHY COHN Order Number: [id number] Reading MD: Measurements Intervals [place] Rate: 76 P: -90 NM: 142 QRS: -24 QRSD: 86 T: 46 QT: 436 QTc: 495 Interpretive Statements SINUS RHYTHM LEFT ATRIAL ABNORMALITY LEFTWARD AXIS LOW LIMB LEAD VOLTAGE QRS(T) CONTOUR ABNORMALITY CONSISTENT WITH ANTEROSEPTAL INFARCT AGE UNDETERMINED ABNORMAL ECG No previous ECG available for comparison
--- NOTE | 2019-06-22 11:15 | RAD ---
INDICATION: Shortness of breath COMPARISON: 07/01/2019 FINDINGS: Single view of chest obtained. Cardiomediastinal silhouette is again mildly enlarged but likely exaggerated by portable technique. No definite focal airspace consolidation or pulmonary edema. IMPRESSION: * No focal airspace consolidation or pulmonary edema. Electronically signed by: Luis E Jacob MD (06/22/2019 11:12 AM) [facility] [place]
--- NOTE | 2019-06-22 12:11 | PHYS DOC ---
Past Medical History Past Medical History: CVA, Diabetes-Type I, High Cholesterol, Hypothyroid, Hypotension, Stroke, Other Additional Past Medical Histor: NEUROPATHY, ORTHOSTATIC HYPOTENSION Past Surgical History: Other Additional Past Surgical Histo: L BREAST L FOOT R KNEE, THYROIDECTOMY Smoking Status: Never Smoker Alcohol Use: None Drug Use: None Adult General Chief Complaint Chief Complaint: MECHANICAL FALL HPI HPI Patient is a 59 year old female who presents via EMS after having syncopal episode at home. Patient states that she went to the bathroom to have a bowel movement and when she got up, everything went bright and she fell. She states the next thing she knew she woke up on the floor. She is complaining of lower back and bilateral hip pain. She does not believe that she sustained any head injury. She denies any headache or neck pain. Patient denies any chest pain or shortness of breath.[] Review of Systems Review of Systems Constitutional: Denies fever or chills [] Respiratory: Denies cough or shortness of breath [] Cardiovascular: No additional information not addressed in HPI [] GI: Denies abdominal pain, nausea, vomiting, bloody stools or diarrhea [] Musculoskeletal: Complains of lower back and bilateral hip pain [] Integument: Denies rash or skin lesions [] Neurologic: Denies headache, focal weakness or sensory changes [] All other systems were reviewed and found to be within normal limits, except as documented in this note. Current Medications Current Medications Current Medications Medications (Trade) Dose Ordered Sig/[place] Start Time Stop Time Status Last Admin Dose Admin Insulin Human Regular (HumuLIN R VIAL) 12 unit 1X ONCE 06/22/19 13:15 06/22/19 13:16 DC 06/22/19 13:17 12 UNIT Sodium Chloride 1,000 ml @ 1,000 mls/hr 1X ONCE 06/22/19 10:30 06/22/19 11:29 DC 06/22/19 12:15 1,000 MLS/HR Allergies Allergies Allergies Coded Allergies Type Severity Reaction Last Updated Verified atorvastatin Allergy Severe throat swells 10/13/18 Yes ciprofloxacin Allergy Severe "THROAT CLOSES UP" ANAPHYLAXIS 10/13/18 Yes hydroxyzine Allergy Severe DIZZINESS, "I FEEL LIKE IM DRUNK" 10/13/18 Yes ketorolac Allergy Severe 04/04/19 Yes lidocaine Allergy Severe THROAT SWELLING 02/28/19 Yes raspberry Allergy Severe CHOKING SENSATION IN THROAT 10/13/18 Yes tramadol Allergy Severe VOMITING 10/13/18 Yes amoxicillin Allergy Intermediate 10/13/18 Yes aspirin Allergy Intermediate 10/13/18 Yes cephalexin Allergy Intermediate 10/13/18 Yes codeine Allergy Intermediate 10/13/18 Yes ibuprofen Allergy Intermediate 10/13/18 Yes morphine Allergy Intermediate 10/13/18 Yes simvastatin Allergy Intermediate 10/13/18 Yes sucralose Allergy Intermediate 11/09/18 Yes pregabalin Allergy Mild vomiting 10/13/18 Yes Physical Exam Physical Exam Constitutional: Well developed, well nourished, no acute distress, non-toxic appearance. [] HENT: Normocephalic, atraumatic, bilateral external ears normal, oropharynx moist, no oral exudates, nose normal. [] Eyes: PERRLA, EOMI, conjunctiva normal, no discharge. [] Neck: Normal range of motion, no tenderness, supple. [] Cardiovascular: Regular rate and rhythm[] Lungs & Thorax: Bilateral breath sounds clear to auscultation [] Abdomen: Bowel sounds normal, soft, no tenderness. [] Skin: Warm, dry, no erythema, no rash. [] Back: There is tenderness to palpation in the bilateral lower lumbar paraspinal musculature. [] Extremities: No tenderness, no cyanosis, no clubbing, ROM intact. [] Neurologic: Alert and oriented X 3n, no focal deficits noted. [] Current Patient Data Vital Signs Vital Signs Date Time Temp Pulse Resp B/P (MAP) Pulse Ox O2 Delivery O2 Flow Rate FiO2 06/22/19 12:16 76 18 100 06/22/19 10:29 97.7 124/75 (91) Room Air 97.7 Lab Values Laboratory Tests Test 06/22/19 11:40 06/22/19 14:46 White Blood Count 5.3 x10^3/uL (4.0-11.0) Red Blood Count 4.40 x10^6/uL (3.50-5.40) Hemoglobin 11.7 g/dL (12.0-15.5) L Hematocrit 36.1 % (36.0-47.0) Mean Corpuscular Volume 82 fL (79-100) Mean Corpuscular Hemoglobin 27 pg (25-35) Mean Corpuscular Hemoglobin Concent 32 g/dL (31-37) Red Cell Distribution Width 14.3 % (11.5-14.5) Platelet Count 241 x10^3/uL (140-400) Neutrophils (%) (Auto) 58 % (31-73) Lymphocytes (%) (Auto) 32 % (24-48) Monocytes (%) (Auto) 5 % (0-9) Eosinophils (%) (Auto) 4 % (0-3) H Basophils (%) (Auto) 1 % (0-3) Neutrophils # (Auto) 3.0 x10^3/uL (1.8-7.7) Lymphocytes # (Auto) 1.7 x10^3/uL (1.0-4.8) Monocytes # (Auto) 0.3 x10^3/uL (0.0-1.1) Eosinophils # (Auto) 0.2 x10^3/uL (0.0-0.7) Basophils # (Auto) 0.1 x10^3/uL (0.0-0.2) Sodium Level 138 mmol/L (136-145) Potassium Level 4.6 mmol/L (3.5-5.1) Chloride Level 100 mmol/L (98-107) Carbon Dioxide Level 27 mmol/L (21-32) Anion Gap 11 (6-14) Blood Urea Nitrogen 23 mg/dL (7-20) H Creatinine 0.6 mg/dL (0.6-1.0) Estimated GFR (Cockcroft-Gault) 103.0 BUN/Creatinine Ratio 38 (6-20) H Glucose Level 425 mg/dL (70-99) H Calcium Level 9.2 mg/dL (8.5-10.1) Magnesium Level 1.8 mg/dL (1.8-2.4) Total Bilirubin 0.1 mg/dL (0.2-1.0) L Aspartate Amino Transferase (AST) 22 U/L (15-37) Alanine Aminotransferase (ALT) 23 U/L (14-59) Alkaline Phosphatase 129 U/L (46-116) H Troponin I Quantitative < 0.017 ng/mL (0.000-0.055) Total Protein 5.8 g/dL (6.4-8.2) L Albumin 2.6 g/dL (3.4-5.0) L Albumin/Globulin Ratio 0.8 (1.0-1.7) L Glucose (Fingerstick) 157 mg/dL (70-99) H Laboratory Tests 06/22/19 11:40 Laboratory Tests 06/22/19 11:40 EKG EKG EKG demonstrates normal sinus rhythm with rate of 76.[] Radiology/Procedures Radiology/Procedures [] Impressions: PROCEDURE: PORTABLE CHEST 1V INDICATION: Shortness of breath COMPARISON: 07/01/2019 FINDINGS: Single view of chest obtained. Cardiomediastinal silhouette is again mildly enlarged but likely exaggerated by portable technique. No definite focal airspace consolidation or pulmonary edema. IMPRESSION: * No focal airspace consolidation or pulmonary edema. Electronically signed by: Luis E Jacob MD (06/22/2019 11:12 AM) [facility] [place] Course & Med Decision Making Course & Med Decision Making Pertinent Labs and Imaging studies reviewed. (See chart for details) [] Dragon Disclaimer Dragon Disclaimer This electronic medical record was generated, in whole or in part, using a voice recognition dictation system. Departure Departure Impression: Primary Impression: Syncope Additional Impressions: Hyperglycemia due to type 1 diabetes mellitus Diarrhea Disposition: 01 HOME, SELF-CARE Condition: STABLE Referrals: ROWENA CUNNINGHAM MD (PCP) Patient Instructions: Diarrhea, Hyperglycemia, Syncope Scripts Diphenoxylate Hcl/Atropine (LOMOTIL TABLET) 1 Each Tablet 1 TAB PO TID PRN for DIARRHEA, #15 TAB Prov: CATHY COHN Jr. DO 06/22/19 Problem Qualifiers Primary Impression: Syncope Syncope type: unspecified Qualified Codes: R55 - Syncope and collapse Additional Impressions: Diarrhea Diarrhea type: unspecified type Qualified Codes: R19.7 - Diarrhea, unspecified CATHY COHN Jr. DO Jun 22, 2019 12:11
[2019-06-22 12:15] LABS: BASO # 0.1 x10^3/uL (0.0-0.2); BASO % 1 % (0-3); CALCIUM 9.2 mg/dL (8.5-10.1); CREATININE 0.6 mg/dL (0.6-1.0); EOS # 0.2 x10^3/uL (0.0-0.7); EOS % 4 % (0-3); HEMATOCRIT 36.1 % (36.0-47.0); HEMOGLOBIN 11.7 g/dL (12.0-15.5); LYMPH # 1.7 x10^3/uL (1.0-4.8); LYMPH % 32 % (24-48); MEAN CORPUSCULAR HEMOGLOBIN 27 pg (25-35); MEAN CORPUSCULAR HGB CONC 32 g/dL (31-37); MEAN CORPUSCULAR VOLUME 82 fL (79-100); MONO # 0.3 x10^3/uL (0.0-1.1); MONO % 5 % (0-9); NEUT % 58 % (31-73); PLATELET COUNT 241 x10^3/uL (140-400); POTASSIUM 4.6 mmol/L (3.5-5.1); RED CELL DISTRIBUTION WIDTH 14.3 % (11.5-14.5); WHITE BLOOD COUNT 5.3 x10^3/uL (4.0-11.0)
[2019-06-22 12:16] VITALS: BP 115/77
[2019-06-22 12:21] LABS: ALBUMIN 2.6 g/dL (3.4-5.0); ALBUMIN/GLOBULIN RATIO 0.8 (1.0-1.7); MAGNESIUM 1.8 mg/dL (1.8-2.4); TOTAL BILIRUBIN 0.1 mg/dL (0.2-1.0); TOTAL PROTEIN 5.8 g/dL (6.4-8.2)
[2019-06-22] MEDS ORDERED: INSULIN REGULAR 100 UNIT/ML 3ML VIAL. IV ONE (13:15)
--- NOTE | 2019-06-22 13:20 | RAD ---
PELVIS, LUMBAR SPINE 2-3V History: Fall. Pain. Technique: 3 views lumbar spine. AP view the pelvis. Comparison: CT lumbar spine April 26, 2019 Findings: Lumbar spine: Minimal leftward curvature of the lumbar spine. Grade 1 anterolisthesis L4 on L5. Normal vertebral body height. No fracture. Multilevel degenerative disc changes most prominent T9-T10, T10-T11, L2-L3 and L4-L5. Lower lumbar facet arthropathy. Pelvis: Normal AP alignment of the hips. No fracture. Impression: 1. No acute osseous abnormality. 2. Multilevel thoracolumbar spondylosis. 3. Grade 1 anterolisthesis L4 on L5. Electronically signed by: Kyle Mosley DO (06/22/2019 1:17 PM) [id number]
[2019-06-22] MEDS ORDERED: DIPH1TAB PO (15:04)
== END 2019-06-22 16:21 | disposition home or self-care (01) ==
LOC: ER 10:09
DX: R55 Syncope and collapse (principal); E10.65 Type 1 diabetes mellitus with hyperglycemia; R19.7 Diarrhea, unspecified; M25.551 Pain in right hip; M25.552 Pain in left hip; E78.00 Pure hypercholesterolemia, unspecified; E03.9 Hypothyroidism, unspecified; Z88.1 Allergy status to other antibiotic agents; Z86.73 Personal history of transient ischemic attack (TIA), and cerebral infarction without residual deficits; Z88.4 Allergy status to anesthetic agent; Z88.5 Allergy status to narcotic agent; Z88.6 Allergy status to analgesic agent; Z88.8 Allergy status to other drugs, medicaments and biological substances; Z91.011 Allergy to milk products; Z91.018 Allergy to other foods
CPT/HCPCS: 36415; 71045; 72100; 72170; 80053; 82962; 83735; 84484; 85025; 93005; 96361; 96374; 99285; J1815; J7030